=== PATIENT | female | born 1940 | race Caucasian/White ===

== ENCOUNTER 2017-03-08 21:38 | Emergency (ER) | payer MEDICARE, BC ==
[2017-03-08 21:49] VITALS: BP 160/73
--- NOTE | 2017-03-08 22:22 | EDM.PDOC ---
ED HPI GENERAL MEDICAL PROBLEM - General Chief Complaint: General Stated Complaint: right foot wound Time Seen by Provider: 03/08/17 23:13 Source of Information: Reports: Patient History Limitations: Reports: No Limitations - History of Present Illness INITIAL COMMENTS - FREE TEXT/NARRATIVE: Patient is a 76-year-old diabetic with right heel diabetic ulcer at this time patient states that the wound had healed nicely and lately she developed 2 ulcerations in the legs and the foot started weeping again there is been going on for about 3 weeks Onset: Gradual Duration: Week(s):, Getting Worse Location: Reports: Lower Extremity, Right (There is erythema and swelling of the foot and ankle) Quality: Reports: Sharp, Stabbing, Throbbing Severity: Moderate Improves with: Reports: Medication, Other (Resting with her leg elevated) Context: Reports: Sick Contact Associated Symptoms: Reports: Fever/Chills Right Feet Pain Score (Numeric/FACES): 6 - Related Data Allergies Allergy/AdvReac Type Severity Reaction Status Date / Time bacitracin [From Cortisporin] Allergy Rash Verified 03/08/17 21:50 bacitracin zinc Allergy Rash Verified 03/08/17 21:50 [From Cortisporin] hydrocortisone Allergy Rash Verified 03/08/17 21:50 [From Cortisporin] lincomycin HCl Allergy unknown Verified 03/08/17 21:50 [From Lincocin] neomycin [From Cortisporin] Allergy Rash Verified 03/08/17 21:50 neomycin sulfate Allergy Rash Verified 03/08/17 21:50 [From Cortisporin] Penicillins Allergy Hives Verified 03/08/17 21:50 polymyxin B Allergy Rash Verified 03/08/17 21:50 [From Cortisporin] polymyxin B sulfate Allergy Rash Verified 03/08/17 21:50 [From Cortisporin] sulfamethoxazole Allergy unknown Verified 03/08/17 21:50 [From Septra] tioconazole [From Monistat 1] Allergy unknown Verified 03/08/17 21:50 trimethoprim [From Septra] Allergy unknown Verified 03/08/17 21:50 Home Meds: Home Meds Gabapentin [Neurontin] 600 mg PO BEDTIME 06/23/15 [History] Warfarin Sodium [Coumadin] 7.5 mg PO ASDIRECTED 06/23/15 [History] Warfarin [Coumadin] 5 mg PO ASDIRECTED 06/23/15 [History] oxyCODONE HCl/Acetaminophen [oxyCODONE-Acetaminophen 5-325] 2 tab PO Q6HR PRN [History] SitaGLIPtin [Januvia] 100 mg PO DAILY@1800 01/30/16 [History] Amoxicillin/Clavulanate K [Augmentin 500 MG\\125 MG] 1 tab PO Q12HR 03/08/17 [ History] Amoxicillin/Clavulanate K [Augmentin 875 MG/125 MG] 1 tab PO Q12HR #40 tablet [Rx] Bismuth Tribromoph/Petrolatum [Xeroform 5"X9" Gauze Strip] 1 each TP DAILY #10 bandage 03/08/17 [Rx] Phytonadione [Vitamin K] 100 mcg PO DAILY 03/08/17 [History] metroNIDAZOLE [Flagyl] 500 mg PO TID #60 tablet 03/08/17 [Rx] Past Medical History HEENT History: Reports: Cataract, Hard of Hearing, Impaired Vision, Other (See Below) Other HEENT History: Glasses, no hearing aides Cardiovascular History: Reports: Blood Clots/VTE/DVT, Hypertension, PVD, Other ( See Below) Other Cardiovascular History: Recurrent DVTs of the legs bilaterally with 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 with patient denying previous history of PE despite previous medical records, peripheral vascular disease requiring bypass surgery at the right leg as below Respiratory History: Reports: COPD, Other (See Below) Other Respiratory History: The patient and her daughter deny previous PE as above Gastrointestinal History: Reports: Cholelithiasis, Chronic Diarrhea Other Gastrointestinal History: Chronic diarrhea after colon surgery as below Genitourinary History: Reports: None Other OB/BYN History: Menopause in her 50s Musculoskeletal History: Reports: Arthritis, Back Pain, Chronic, Neck Pain, Chronic, Osteoarthritis, Osteoporosis Neurological History: Reports: Neuropathy, Diabetic, Neuropathy, Peripheral Psychiatric History: Reports: Anxiety, Depression Endocrine/Metabolic History: Reports: Diabetes, Type II, IDDM, Obesity/BMI 30+, Other (See Below) Other Endocrine/Metabolic History: Patient did previously need insulin therapy Hematologic History: Reports: Anemia, B12 Deficiency, Blood Transfusion(s), Iron Deficiency, Other (See Below) Other Hematologic History: Blood transfusion in 2004 Immunologic History: Reports: None Oncologic (Cancer) History: Reports: Colon Other Oncologic History: Colon cancer in 2007 with surgery as below and also chemotherapy Dermatologic History: Reports: Chronic Cellulitis, Venous Stasis Dermatitis, Other (See Below) Other Dermatologic History: Chronic diabetic right foot ulcers - Infectious Disease History Infectious Disease History: Reports: MRSA - Past Surgical History Head Surgeries/Procedures: Reports: None HEENT Surgical History: Reports: Cataract Surgery, Oral Surgery, Other (See Below) Cardiovascular Surgical History: Reports: Vascular Surgery, Other (See Below) GI Surgical History: Reports: Appendectomy, Cholecystectomy, Colon, Colonoscopy , Colostomy, Hernia, Abdominal, Hernia Repair/Other, Other (See Below) Female Surgical History: Reports: Breast Biopsy, Tubal Ligation, Other (See Below) Musculoskeletal Surgical History: Reports: Hip Replacement, Other (See Below) Oncologic Surgical History: Reports: Other (See Below) - Past Imaging History Past Imaging History: Reports: Bone Scan, MRI, PET Social & Family History - Family History HEENT: Reports: Macular Degeneration, Other (See Below) Other HEENT Family History: mother with macular degeneration Cardiac: Reports: CAD, Hypertension, SC, Other (See Below) Other Cardiac Family History: Father with SC in his 70s, daughter with hypertension Respiratory: Reports: None GI: Reports: None : Reports: Diabetic Nephropathy, Dialysis, Renal Disease/Insufficiency Other Family History: Son with diabetic nephropathy which required dialysis OBGYN: Reports: None Musculoskeletal: Reports: None Neurological: Reports: CVA Other Neurological Family History: Father with fatal CVA in his 80s Psychiatric: Reports: None Endocrine/Metabolic: Reports: Diabetes, Type I, Diabetes, type II, IDDM Other Endocrine/Metabolic Family History: Son with type 1 diabetes mellitus with secondary renal failure as above, sister with AODM, brother with AODM-ID Hematologic: Reports: None Immunologic: Reports: None Dermatologic: Reports: None Oncologic: Reports: Cervix, Other (See Below) Other Oncologic Family History: Sister with cervical cancer in her 40s - Tobacco Use Smoking Status *Q: Current Every Day Smoker Years of Tobacco use: 56 Packs/Tins Daily: 1 Used Tobacco, but Quit: No Second Hand Smoke Exposure: No - Caffeine Use Caffeine Use: Reports: Coffee, Soda - Alcohol Use Days Per Week of Alcohol Use: 0 - Recreational Drug Use Recreational Drug Use: No Drug Use in Last 12 Months: No - Living Situation & Occupation Living situation: Reports: , with Family Occupation: Retired ED ROS GENERAL - Review of Systems Review Of Systems: See Below Constitutional: Reports: No Symptoms HEENT: Reports: No Symptoms Respiratory: Reports: No Symptoms Cardiovascular: Reports: No Symptoms Endocrine: Reports: No Symptoms GI/Abdominal: Reports: No Symptoms : Reports: No Symptoms Musculoskeletal: Reports: Foot Pain (Right foot pain with dependent edema poor pulse) Skin: Reports: Erythema, Change in Color Neurological: Reports: No Symptoms Psychiatric: Reports: No Symptoms Hematologic/Lymphatic: Reports: No Symptoms Immunologic: Reports: No Symptoms ED EXAM, GENERAL - Physical Exam Exam: See Below Exam Limited By: No Limitations General Appearance: Alert, WD/WN, No Apparent Distress Ears: Normal External Exam, Normal Canal, Hearing Grossly Normal, Normal TMs Ear Exam: Bilateral Ear: Auricle Normal, Canal Normal, TM normal Nose: Normal Inspection, Normal Mucosa, No Blood Throat/Mouth: Normal Inspection, Normal Lips, Normal Teeth, Normal Gums, Normal Oropharynx, Normal Voice, No Airway Compromise Head: Atraumatic, Normocephalic Neck: Normal Inspection, Supple, Non-Tender, Full Range of Motion Respiratory/Chest: No Respiratory Distress, Lungs Clear, Normal Breath Sounds, No Accessory Muscle Use, Chest Non-Tender Cardiovascular: Normal Peripheral Pulses, Regular Rate, Rhythm, No Edema, No Gallop, No JVD, No Murmur, No Rub GI/Abdominal: Normal Bowel Sounds, Soft, Non-Tender, No Organomegaly, No Distention, No Abnormal Bruit, No Mass (Female) Exam: Normal External Exam, Normal Speculum Exam, Normal Bimanual Exam Rectal (Female) Exam: Deferred Back Exam: Normal Inspection Extremities: Pedal Edema, Leg Pain, Redness, Other (wound weeping clear) Neurological: Alert, Oriented, CN II-XII Intact, Normal Cognition, Normal Gait, Normal Reflexes, No Motor/Sensory Deficits Psychiatric: Normal Affect, Normal Mood Skin Exam: Erythema, Other (1 weeping) Course - Vital Signs Last Recorded V/S: Last Vital Signs Temp 97.8 F 03/08/17 21:40 Pulse 82 03/08/17 21:40 Resp 18 03/08/17 21:40 BP 160/73 H 03/08/17 21:40 Pulse Ox 98 03/08/17 21:40 - Orders/Labs/Meds Orders: Active Orders 24 hr Category Date Time Status BASIC METABOLIC PANEL,BMP [CHEM] Stat Lab 03/08/17 22:15 Ordered CBC WITH AUTO DIFF [HEME] Stat Lab 03/08/17 22:15 Ordered CULTURE BLOOD [BC] Stat Lab 03/08/17 22:15 Ordered CULTURE BLOOD [BC] Stat Lab 03/08/17 22:15 Ordered CULTURE WOUND [RM] Stat Lab 03/08/17 22:15 Uncollected INR,PT,PROTHROMBIN TIME [COAG] Stat Lab 03/08/17 22:15 Ordered Blood Culture x2 Reflex Set [OM.PC] Stat Oth 03/08/17 22:15 Ordered Departure - Departure Time of Disposition: 23:05 Disposition: Home, Self-Care 01 Condition: Fair Clinical Impression: Diabetes mellitus type 2, HTN, Essential hypertension, Elevated INR Diabetic foot ulcer associated with type 2 diabetes mellitus Qualifiers: Diabetic foot ulcer location: unspecified part of foot Laterality: right Non- pressure ulcer stage: limited to breakdown of skin Qualified Code(s): E11.621 - Type 2 diabetes mellitus with foot ulcer; L97.511 - Non-pressure chronic ulcer of other part of right foot limited to breakdown of skin COPD (chronic obstructive pulmonary disease) Qualifiers: COPD type: unspecified COPD Qualified Code(s): J44.9 - Chronic obstructive pulmonary disease, unspecified - Discharge Information Forms: ED Department Discharge Additional Instructions: Patient is instructed to change bandages daily she is to apply Xeroform ABVD klin and Rosalino wrap daily we'll obtain cultures and will start her on Augmentin and Flagyl daily as far as her PT/INR was 4.2 will hold it today until Saturday recheck on Saturday and started and restart same doses Care Plan Goals: Patient was instructed to hold her Coumadin until Saturday we'll restart on Saturday also check her INR Saturday - My Orders Last 24 Hours: My Active Orders 03/08/17 22:15 BASIC METABOLIC PANEL,BMP [CHEM] Stat CBC WITH AUTO DIFF [HEME] Stat CULTURE BLOOD [BC] Stat CULTURE BLOOD [BC] Stat CULTURE WOUND [RM] Stat INR,PT,PROTHROMBIN TIME [COAG] Stat Blood Culture x2 Reflex Set [OM.PC] Stat - Assessment/Plan Last 24 Hours: My Active Orders 03/08/17 22:15 BASIC METABOLIC PANEL,BMP [CHEM] Stat CBC WITH AUTO DIFF [HEME] Stat CULTURE BLOOD [BC] Stat CULTURE BLOOD [BC] Stat CULTURE WOUND [RM] Stat INR,PT,PROTHROMBIN TIME [COAG] Stat Blood Culture x2 Reflex Set [OM.PC] Stat
[2017-03-08 22:45] LABS: CHLORIDE,CL 102 mmol/L (98-107); SODIUM,NA 137 mmol/L (136-145)
== END 2017-03-08 23:25 | disposition home or self-care (01) ==
LOC: LL.ED 21:38
DX: E11.621 Type 2 diabetes mellitus with foot ulcer (principal); L97.511 Non-pressure chronic ulcer of other part of right foot limited to breakdown of skin; J44.9 Chronic obstructive pulmonary disease, unspecified; R79.1 Abnormal coagulation profile; I10 Essential (primary) hypertension; E11.42 Type 2 diabetes mellitus with diabetic polyneuropathy; M19.90 Unspecified osteoarthritis, unspecified site; F41.9 Anxiety disorder, unspecified; F32.9 Major depressive disorder, single episode, unspecified; E66.9 Obesity, unspecified; F17.210 Nicotine dependence, cigarettes, uncomplicated; Z86.2 Personal history of diseases of the blood and blood-forming organs and certain disorders involving the immune mechanism; Z86.718 Personal history of other venous thrombosis and embolism; Z98.49 Cataract extraction status, unspecified eye; Z90.49 Acquired absence of other specified parts of digestive tract; Z98.890 Other specified postprocedural states; Z98.51 Tubal ligation status; Z96.649 Presence of unspecified artificial hip joint; Z93.3 Colostomy status; Z85.038 Personal history of other malignant neoplasm of large intestine; Z79.899 Other long term (current) drug therapy; Z88.1 Allergy status to other antibiotic agents; Z88.0 Allergy status to penicillin; Z88.5 Allergy status to narcotic agent; Z88.2 Allergy status to sulfonamides; Z88.8 Allergy status to other drugs, medicaments and biological substances; Z79.01 Long term (current) use of anticoagulants
CPT/HCPCS: 36415; 80048; 85025; 85610; 87040; 87070; 87077; 87186; 99283

== ENCOUNTER 2017-08-03 18:35 | Emergency (ER) | payer MEDICARE, BC ==
[2017-08-03] MEDS ORDERED: Sodium Chloride 0.9% 10 ML Syringe FLUSH PRN (20:10)
--- NOTE | 2017-08-03 20:10 | EDM.PDOC ---
ED HPI GENERAL MEDICAL PROBLEM - General Chief Complaint: General Stated Complaint: Tachycardia, Dyspnea Time Seen by Provider: 08/03/17 18:40 Source of Information: Reports: Patient, Family, RN History Limitations: Reports: No Limitations - History of Present Illness INITIAL COMMENTS - FREE TEXT/NARRATIVE: Patient is a 77-year-old female well known to myself seen in the emergency room status post chills after flushing her Port patient is currently receiving vancomycin IV at home secondary to infected ulcers on the medial aspect of the right foot, patient is a smoker with significant vascular deficiency of interest is the fact that home health has had axis to the port for the last month and has been receiving vancomycin 3 times a day infusions at home at this time her white count is elevated 13.8 and her creatinine today is 2.30 ,6 days ago her creatinine was 0.8 she has been tachycardic and was chills at home unknown if increased temperature , temperature today 97.6 Onset: Gradual Duration: Day(s): Location: Reports: Generalized Severity: Severe Improves with: Reports: None Worsens with: Reports: None Associated Symptoms: Reports: Cough, Fever/Chills, Shortness of Breath (With transferring and exertion) - Related Data Allergies Allergy/AdvReac Type Severity Reaction Status Date / Time bacitracin [From Cortisporin] Allergy Rash Verified 08/03/17 18:56 bacitracin zinc Allergy Rash Verified 08/03/17 18:56 [From Cortisporin] hydrocortisone Allergy Rash Verified 08/03/17 18:56 [From Cortisporin] lincomycin HCl Allergy unknown Verified 08/03/17 18:56 [From Lincocin] neomycin [From Cortisporin] Allergy Rash Verified 08/03/17 18:56 neomycin sulfate Allergy Rash Verified 08/03/17 18:56 [From Cortisporin] Penicillins Allergy Hives Verified 08/03/17 18:56 polymyxin B Allergy Rash Verified 08/03/17 18:56 [From Cortisporin] polymyxin B sulfate Allergy Rash Verified 08/03/17 18:56 [From Cortisporin] sulfamethoxazole Allergy unknown Verified 08/03/17 18:56 [From Septra] tioconazole [From Monistat 1] Allergy unknown Verified 08/03/17 18:56 trimethoprim [From Septra] Allergy unknown Verified 08/03/17 18:56 Home Meds: Home Meds Gabapentin [Neurontin] 600 mg PO BEDTIME 06/23/15 [History] Warfarin Sodium [Coumadin] 7.5 mg PO ASDIRECTED 06/23/15 [History] Warfarin [Coumadin] 5 mg PO ASDIRECTED 06/23/15 [History] oxyCODONE HCl/Acetaminophen [oxyCODONE-Acetaminophen 5-325] 2 tab PO Q6HR PRN [History] SitaGLIPtin [Januvia] 100 mg PO DAILY@1800 01/30/16 [History] Amoxicillin/Clavulanate K [Augmentin 500 MG\\125 MG] 1 tab PO Q12HR 03/08/17 [ History] Amoxicillin/Clavulanate K [Augmentin 875 MG/125 MG] 1 tab PO Q12HR #40 tablet [Rx] Bismuth Tribromoph/Petrolatum [Xeroform 5"X9" Gauze Strip] 1 each TP DAILY #10 bandage 03/08/17 [Rx] Phytonadione [Vitamin K] 100 mcg PO DAILY 03/08/17 [History] metroNIDAZOLE [Flagyl] 500 mg PO TID #60 tablet 03/08/17 [Rx] Past Medical History HEENT History: Reports: Cataract, Hard of Hearing, Impaired Vision, Other (See Below) Other HEENT History: Glasses, no hearing aides Cardiovascular History: Reports: Blood Clots/VTE/DVT, Hypertension, PVD, Other ( See Below) Other Cardiovascular History: Recurrent DVTs of the legs bilaterally with 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 with patient denying previous history of PE despite previous medical records, peripheral vascular disease requiring bypass surgery at the right leg as below Respiratory History: Reports: COPD, Other (See Below) Other Respiratory History: The patient and her daughter deny previous PE as above Gastrointestinal History: Reports: Cholelithiasis, Chronic Diarrhea Other Gastrointestinal History: Chronic diarrhea after colon surgery as below Genitourinary History: Reports: None Other OB/BYN History: Menopause in her 50s Musculoskeletal History: Reports: Arthritis, Back Pain, Chronic, Neck Pain, Chronic, Osteoarthritis, Osteoporosis Neurological History: Reports: Neuropathy, Diabetic, Neuropathy, Peripheral Psychiatric History: Reports: Anxiety, Depression Endocrine/Metabolic History: Reports: Diabetes, Type II, IDDM, Obesity/BMI 30+, Other (See Below) Other Endocrine/Metabolic History: Patient did previously need insulin therapy Hematologic History: Reports: Anemia, B12 Deficiency, Blood Transfusion(s), Iron Deficiency, Other (See Below) Other Hematologic History: Blood transfusion in 2004 Immunologic History: Reports: None Oncologic (Cancer) History: Reports: Colon Other Oncologic History: Colon cancer in 2006 with surgery as below and also chemotherapy Dermatologic History: Reports: Chronic Cellulitis, Venous Stasis Dermatitis, Other (See Below) Other Dermatologic History: Chronic diabetic right foot ulcers - Infectious Disease History Infectious Disease History: Reports: MRSA - Past Surgical History Head Surgeries/Procedures: Reports: None HEENT Surgical History: Reports: Cataract Surgery, Oral Surgery, Other (See Below) Cardiovascular Surgical History: Reports: Vascular Surgery, Other (See Below) GI Surgical History: Reports: Appendectomy, Cholecystectomy, Colon, Colonoscopy , Colostomy, Hernia, Abdominal, Hernia Repair/Other, Other (See Below) Female Surgical History: Reports: Breast Biopsy, Tubal Ligation, Other (See Below) Musculoskeletal Surgical History: Reports: Hip Replacement, Other (See Below) Oncologic Surgical History: Reports: Other (See Below) - Past Imaging History Past Imaging History: Reports: Bone Scan, MRI, PET Social & Family History - Family History HEENT: Reports: Macular Degeneration, Other (See Below) Other HEENT Family History: mother with macular degeneration Cardiac: Reports: CAD, Hypertension, VA, Other (See Below) Other Cardiac Family History: Father with VA in his 70s, daughter with hypertension Respiratory: Reports: None GI: Reports: None : Reports: Diabetic Nephropathy, Dialysis, Renal Disease/Insufficiency Other Family History: Son with diabetic nephropathy which required dialysis OBGYN: Reports: None Musculoskeletal: Reports: None Neurological: Reports: CVA Other Neurological Family History: Father with fatal CVA in his 80s Psychiatric: Reports: None Endocrine/Metabolic: Reports: Diabetes, Type I, Diabetes, type II, IDDM Other Endocrine/Metabolic Family History: Son with type 1 diabetes mellitus with secondary renal failure as above, sister with AODM, brother with AODM-ID Hematologic: Reports: None Immunologic: Reports: None Dermatologic: Reports: None Oncologic: Reports: Cervix, Other (See Below) Other Oncologic Family History: Sister with cervical cancer in her 40s - Tobacco Use Smoking Status *Q: Current Every Day Smoker Years of Tobacco use: 56 Packs/Tins Daily: 1 Used Tobacco, but Quit: No Second Hand Smoke Exposure: No - Caffeine Use Caffeine Use: Reports: Coffee, Soda - Alcohol Use Days Per Week of Alcohol Use: 0 - Recreational Drug Use Recreational Drug Use: No Drug Use in Last 12 Months: No - Living Situation & Occupation Living situation: Reports: , with Family Occupation: Retired ED ROS GENERAL - Review of Systems Review Of Systems: See Below Constitutional: Reports: Chills, Weakness HEENT: Reports: No Symptoms Respiratory: Reports: Shortness of Breath (With exertion) Cardiovascular: Reports: Palpitations, Other Endocrine: Reports: Other (Diabetes) GI/Abdominal: Reports: Diarrhea Musculoskeletal: Reports: Leg Pain, Foot Pain Skin: Reports: Wound (Right ankle medial aspect) Neurological: Reports: No Symptoms Psychiatric: Reports: No Symptoms Hematologic/Lymphatic: Reports: No Symptoms ED EXAM, GENERAL - Physical Exam Exam: See Below Exam Limited By: No Limitations General Appearance: Alert, WD/WN, No Apparent Distress Ears: Normal External Exam, Normal Canal, Hearing Grossly Normal, Normal TMs Nose: Normal Inspection, Normal Mucosa, No Blood Throat/Mouth: Normal Inspection, Normal Lips, Normal Teeth, Normal Gums, Normal Oropharynx, Normal Voice, No Airway Compromise Head: Atraumatic, Normocephalic Neck: Normal Inspection, Supple, Non-Tender, Full Range of Motion Respiratory/Chest: Decreased Breath Sounds, Rales (Left base) Cardiovascular: Tachycardia GI/Abdominal: Normal Bowel Sounds, Soft, Non-Tender, No Organomegaly, No Distention, No Abnormal Bruit, No Mass (Female) Exam: Deferred Rectal (Female) Exam: Deferred Back Exam: Normal Inspection, Full Range of Motion, NT Extremities: Leg Pain (Right leg medial aspect ulcer healing) Neurological: Alert, Oriented, CN II-XII Intact, Normal Cognition, Normal Gait, Normal Reflexes, No Motor/Sensory Deficits Psychiatric: Normal Affect, Normal Mood Skin Exam: Warm, Dry, Intact, Normal Color, No Rash, Wound/Incision (Right leg medial aspect ulcer) Course - Vital Signs Last Recorded V/S: Last Vital Signs Temp 97.6 F 08/03/17 18:35 Pulse 101 H 08/03/17 20:46 Resp 23 H 08/03/17 20:46 BP 96/57 L 08/03/17 20:46 Pulse Ox 98 08/03/17 20:46 - Orders/Labs/Meds Orders: Active Orders 24 hr Category Date Time Status EKG Documentation Completion [RC] ASDIRECTED Care 08/03/17 19:18 Active Chest 2V [CR] Stat Exams 08/03/17 19:04 Taken CULTURE BLOOD [BC] Stat Lab 08/03/17 19:06 Ordered CULTURE BLOOD [BC] Stat Lab 08/03/17 19:06 Ordered CULTURE CATHETER TIP [RM] Stat Lab 08/03/17 20:26 Uncollected Sodium Chloride 0.9% @ 150 MLS/HR (1000ml) Med 08/03/17 20:15 Ordered Sodium Chloride 0.9% [Normal Saline] 1,000 ml IV ASDIRECTED Sodium Chloride 0.9% [Saline Flush] Med 08/03/17 20:10 Ordered 10 ml FLUSH ASDIRECTED PRN Blood Culture x2 Reflex Set [OM.PC] Stat Oth 08/03/17 19:05 Ordered Saline Lock Insert [OM.PC] Stat Oth 08/03/17 20:10 Ordered Medication Orders Sodium Chloride (Normal Saline) 1,000 mls @ 150 mls/hr IV ASDIRECTED JOS Last Admin: 08/03/17 20:21 Dose: 150 mls/hr Sodium Chloride (Saline Flush) 10 ml FLUSH ASDIRECTED PRN PRN Reason: Keep Vein Open Labs: Laboratory Tests 08/03/17 08/03/17 08/03/17 Range/Units 19:00 19:00 19:00 WBC 13.8 H (4.0-10.2) K/uL RBC 4.68 (3.77-5.09) M/uL Hgb 13.9 (11.7-15.5) g/dL Hct 41.2 (34.0-46.0) % MCV 88.0 (84.0-98.0) fL MCH 29.7 (28.2-33.3) pg MCHC 33.7 (31.7-36.0) g/dL RDW 15.0 H (11.2-14.1) % Plt Count 159 (150-350) K/uL Neut % (Auto) 90.7 H (45.0-80.0) % Lymph % (Auto) 3.5 L (10.0-50.0) % [place] % (Auto) 5.3 (2.0-14.0) % Eos % (Auto) 0.2 (0.0-5.0) % Baso % (Auto) 0.3 (0.0-2.0) % Neut # (Auto) 12.54 H (1.40-7.00) K/uL Lymph # (Auto) 0.49 L (0.50-3.50) K/uL [place] # (Auto) 0.74 (0.00-1.00) K/uL Eos # (Auto) 0.03 (0.00-0.50) K/uL Baso # (Auto) 0.04 (0.00-0.20) K/uL PT 24.1 H (9.8-11.7) SEC INR 2.2 Sodium 135 L (136-145) mmol/L Potassium 3.4 L (3.5-5.1) mmol/L Chloride 102 (98-107) mmol/L Carbon Dioxide 19.6 L (21.0-32.0) mmol/L BUN 28 H (7-18) mg/dL Creatinine 2.30 H D (0.51-1.17) mg/dL Est Cr Clr Drug Dosing 14.48 mL/min Estimated GFR (MDRD) 21 mL/min Glucose 178 H (74-106) mg/dL Lactic Acid (0.4-2.0) mmol/L Calcium 8.5 (8.5-10.1) mg/dL Troponin I 0.613 H* (0.000-0.056) ng/mL NT-Pro-B Natriuret Pep 7632 H (0-125) pg/mL 08/03/17 Range/Units 19:45 WBC (4.0-10.2) K/uL RBC (3.77-5.09) M/uL Hgb (11.7-15.5) g/dL Hct (34.0-46.0) % MCV (84.0-98.0) fL MCH (28.2-33.3) pg MCHC (31.7-36.0) g/dL RDW (11.2-14.1) % Plt Count (150-350) K/uL Neut % (Auto) (45.0-80.0) % Lymph % (Auto) (10.0-50.0) % [place] % (Auto) (2.0-14.0) % Eos % (Auto) (0.0-5.0) % Baso % (Auto) (0.0-2.0) % Neut # (Auto) (1.40-7.00) K/uL Lymph # (Auto) (0.50-3.50) K/uL [place] # (Auto) (0.00-1.00) K/uL Eos # (Auto) (0.00-0.50) K/uL Baso # (Auto) (0.00-0.20) K/uL PT (9.8-11.7) SEC INR Sodium (136-145) mmol/L Potassium (3.5-5.1) mmol/L Chloride (98-107) mmol/L Carbon Dioxide (21.0-32.0) mmol/L BUN (7-18) mg/dL Creatinine (0.51-1.17) mg/dL Est Cr Clr Drug Dosing mL/min Estimated GFR (MDRD) mL/min Glucose (74-106) mg/dL Lactic Acid 3.1 H (0.4-2.0) mmol/L Calcium (8.5-10.1) mg/dL Troponin I (0.000-0.056) ng/mL NT-Pro-B Natriuret Pep (0-125) pg/mL Meds: Medications Generic Name Dose Route Start Last Admin Trade Name Freq PRN Reason Stop Dose Admin Sodium Chloride 1,000 mls @ 150 mls/hr 08/03/17 20:15 08/03/17 20:21 Normal Saline IV 150 mls/hr ASDIRECTED JOS Administration Sodium Chloride 10 ml 08/03/17 20:10 Saline Flush FLUSH ASDIRECTED PRN Keep Vein Open Departure - Departure Time of Disposition: 20:59 Disposition: DC/Tfer to Acute Hospital 02 Clinical Impression: Elevated troponin Sepsis Qualifiers: Sepsis type: sepsis due to unspecified organism Qualified Code(s): A41.9 - Sepsis, unspecified organism Renal failure (ARF), acute on chronic Qualifiers: Acute renal failure type: unspecified - Discharge Information Referrals: Josse Jian MD [Primary Care Provider] - Forms: ED Department Discharge Care Plan Goals: Patient will be started on IV cefoxatine and Vanco and prior to transfer transferred to [place] IV fluids started - My Orders Last 24 Hours: My Active Orders 08/03/17 19:04 Chest 2V [CR] Stat 08/03/17 19:05 Blood Culture x2 Reflex Set [OM.PC] Stat 08/03/17 19:06 CULTURE BLOOD [BC] Stat CULTURE BLOOD [BC] Stat 08/03/17 19:18 EKG Documentation Completion [RC] ASDIRECTED 08/03/17 20:10 Sodium Chloride 0.9% [Saline Flush] 10 ml FLUSH ASDIRECTED PRN Saline Lock Insert [OM.PC] Stat 08/03/17 20:15 Sodium Chloride 0.9% @ 150 MLS/HR (1000ml) Sodium Chloride 0.9% [Normal Saline] 1,000 ml IV ASDIRECTED 08/03/17 20:26 CULTURE CATHETER TIP [RM] Stat - Assessment/Plan Last 24 Hours: My Active Orders 08/03/17 19:04 Chest 2V [CR] Stat 08/03/17 19:05 Blood Culture x2 Reflex Set [OM.PC] Stat 08/03/17 19:06 CULTURE BLOOD [BC] Stat CULTURE BLOOD [BC] Stat 08/03/17 19:18 EKG Documentation Completion [RC] ASDIRECTED 08/03/17 20:10 Sodium Chloride 0.9% [Saline Flush] 10 ml FLUSH ASDIRECTED PRN Saline Lock Insert [OM.PC] Stat 08/03/17 20:15 Sodium Chloride 0.9% @ 150 MLS/HR (1000ml) Sodium Chloride 0.9% [Normal Saline] 1,000 ml IV ASDIRECTED 08/03/17 20:26 CULTURE CATHETER TIP [RM] Stat
[2017-08-03] MEDS ORDERED: Sodium Chloride 0.9% 1,000 ML IV SCH (20:15)
[2017-08-03] MEDS ORDERED: Vancomycin 1.5 GM in Sodium Chloride 0.9% 500 ML IV ONE (21:00)
[2017-08-03] MEDS ORDERED: Cefepime 2 GM in Sodium Chloride 0.9% 100 ML IV ONE (21:00)
[2017-08-03 22:15] VITALS: BP 101/57
== END 2017-08-03 22:00 ==
LOC: LL.ED 18:35
DX: A41.9 Sepsis, unspecified organism (principal); I12.9 Hypertensive chronic kidney disease with stage 1 through stage 4 chronic kidney disease, or unspecified chronic kidney disease; E11.22 Type 2 diabetes mellitus with diabetic chronic kidney disease; N18.9 Chronic kidney disease, unspecified; E11.40 Type 2 diabetes mellitus with diabetic neuropathy, unspecified; J44.9 Chronic obstructive pulmonary disease, unspecified; N17.9 Acute kidney failure, unspecified; F17.210 Nicotine dependence, cigarettes, uncomplicated; R79.89 Other specified abnormal findings of blood chemistry; Z88.8 Allergy status to other drugs, medicaments and biological substances; Z79.01 Long term (current) use of anticoagulants
CPT/HCPCS: 36415; 71020; 80048; 83605; 83880; 84484; 85025; 85610; 87040; 87070; 87077; 87186; 93005; 96361; 96365; 96367; 99285; J0692; J3370; J7030; J7040; J7050

== ENCOUNTER 2017-12-24 21:01 | Emergency (ER) | payer MEDICARE, BC ==
[2017-12-24] MEDS ORDERED: Albuterol/Ipratropium 3.0-0.5 MG/3 ML Neb Soln NEB ONE (21:30)
[2017-12-24] MEDS ORDERED: Budesonide 0.5 MG/2 ML Neb Susp NEB ONE (21:30)
[2017-12-24] MEDS ORDERED: Sodium Chloride 0.9% 10 ML Syringe FLUSH PRN (21:30)
--- NOTE | 2017-12-24 21:30 | EDM.PDOC ---
ED HPI GENERAL MEDICAL PROBLEM - General Chief Complaint: Respiratory Problem Stated Complaint: cough, respiratory s/s Time Seen by Provider: 12/24/17 21:20 Source of Information: Reports: Patient, Family (Daughter), Old Records ([facility] chart/EMR) History Limitations: Reports: No Limitations - History of Present Illness INITIAL COMMENTS - FREE TEXT/NARRATIVE: The patient was brought to the emergency room via private automobile by her daughter for evaluation of progressive greenish productive cough over the last 2 weeks with the patient taking a ten-day course of Augmentin, which she completed on 12/21. Her son is having similar type symptoms, however his symptoms started after the patient became sick. The patient was also taking OTC Mucinex DM and Robitussin-DM with no improvement in her symptoms. She is not normally on nebulizer therapy, however did take one treatment from her daughter 2 days ago. No history of significant dyspnea, wheezing, etc. Note that the Augmentin was leftover medications from recent cellulitis of her right leg, which has since resolved. Possible history of fever and chills, however she never did measure her temperature with no recent use of antipyretic medication. The patient denies any chest pain/pressure, heart flutter, dizziness, orthostasis, orthopnea, diaphoresis, paresthesias, recent decreased exercise tolerance, or any other anginal-type symptoms. No recent history of abdominal pain, heartburn, nausea, diarrhea, melena, gross hematochezia, or any food intolerance, including fatty foods, etc.. She denies any current UTI symptoms. She did have some mild sore throat initially with onset of symptoms with only mild 1/10 discomfort at this time. Onset: Gradual Duration: Week(s):, Getting Worse, Intermittent Location: Reports: Other (Sore throat) Quality: Reports: Ache (Sore throat) Severity: Mild Improves with: Reports: None Worsens with: Reports: None Context: Reports: Other (As above) Associated Symptoms: Reports: Cough, cough w sputum, Fever/Chills. 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) (As above) Throat Pain Score (Numeric/FACES): 1 - Related Data Allergies Allergy/AdvReac Type Severity Reaction Status Date / Time bacitracin [From Cortisporin] Allergy Rash Verified 12/24/17 21:05 bacitracin zinc Allergy Rash Verified 12/24/17 21:05 [From Cortisporin] hydrocortisone Allergy Rash Verified 12/24/17 21:05 [From Cortisporin] lincomycin HCl Allergy unknown Verified 12/24/17 21:05 [From Lincocin] neomycin [From Cortisporin] Allergy Rash Verified 12/24/17 21:05 neomycin sulfate Allergy Rash Verified 12/24/17 21:05 [From Cortisporin] Penicillins Allergy Hives Verified 12/24/17 21:05 polymyxin B Allergy Rash Verified 12/24/17 21:05 [From Cortisporin] polymyxin B sulfate Allergy Rash Verified 12/24/17 21:05 [From Cortisporin] sulfamethoxazole Allergy unknown Verified 12/24/17 21:05 [From Septra] tioconazole [From Monistat 1] Allergy unknown Verified 12/24/17 21:05 trimethoprim [From Septra] Allergy unknown Verified 12/24/17 21:05 Home Meds: Home Meds Gabapentin [Neurontin] 600 mg PO BEDTIME 06/23/15 [History] SitaGLIPtin [Januvia] 100 mg PO DAILY@1800 01/30/16 [History] Phytonadione [Vitamin K] 100 mcg PO DAILY 03/08/17 [History] Albuterol/Ipratropium [DuoNeb 3.0-0.5 MG/3 ML] 3 ml NEB QID #60 neb 12/24/17 [Rx ] Ciprofloxacin HCl [Cipro] 500 mg PO BID #20 tablet 12/24/17 [Rx] Magnesium Oxide 400 mg PO DAILY #30 tab 12/24/17 [Rx] Rosuvastatin [Crestor] 10 mg PO BEDTIME 12/24/17 [History] Past Medical History HEENT History: Reports: Cataract, Hard of Hearing, Impaired Vision, Other (See Below). Denies: Allergic Rhinitis, Glaucoma, Macular Degeneration, Retinal Detachment Other HEENT History: Reading Glasses, no hearing aides Cardiovascular History: Reports: Blood Clots/VTE/DVT, High Cholesterol, Hypertension, PVD, Other (See Below). 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 Denies: Asthma, Intubation, Difficult, PE, Pneumothorax, Sleep Apnea Other Respiratory History: The patient and her daughter deny previous PE as above Gastrointestinal History: Reports: Cholelithiasis, Chronic Diarrhea, Diverticulosis, Irritable Bowel Syndrome. Denies: Celiac Disease, Chronic Constipation, Fecal Incontinence, Gastritis, GERD, GI Bleed, Hepatitis, Hiatal Hernia, Inflammatory Bowel Disease, Jaundice, Pancreatitis Other Gastrointestinal History: Chronic diarrhea after colon surgery as below Genitourinary History: Reports: Acute Renal Failure, Other (See Below). 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 Denies: Dysfunctional Uterine Bleeding, Endometriosis, Fibroids : 2 Para: 2 Other OB/BYN History: Menopause in her 50s. Full term without complications during pregnancies or deliveries Musculoskeletal History: Reports: Arthritis, Back Pain, Chronic, Neck Pain, Chronic, Osteoarthritis, Osteoporosis, Other (See Below). Denies: Amputation, Fracture, RA, SLE Other Musculoskeletal History: Kyphosis Neurological History: Reports: Neuropathy, Diabetic, Neuropathy, Peripheral. Denies: Alzheimers Disease, Cerebral Aneurysms, Concussion, CVA, Headaches, Chronic, Head Trauma, Migraines, MS, Parkinson's, Seizure, TIA Psychiatric History: Reports: Anxiety, Depression. Denies: Abuse, Victim of, ADD, ADHD, Addiction, Alzheimers Disease, Dementia, Psych Hospitalization(s), PTSD, Suicide Attempt, Suicidal Ideation Endocrine/Metabolic History: Reports: Diabetes, Type II, IDDM, Obesity/BMI 30+, Osteopenia, Osteoporosis, Other (See Below). Denies: Diabetes, Type I, Diabetes Mellitus, Type 3c, Hypothyroidism Other Endocrine/Metabolic History: Patient did previously need insulin therapy, including during hospitalizations, however not on a regular basis. Hematologic History: Reports: Anemia, B12 Deficiency, Blood Transfusion(s), Iron Deficiency, Other (See Below) Other Hematologic History: Blood transfusion in 2004; factor V Leiden deficiency Immunologic History: Reports: None. Denies: AIDS, HIV, SLE Oncologic (Cancer) History: Reports: Colon, Metastatic. Denies: Basal Cell Carcinoma, Breast, Cervix, Hodgkin's Lymphoma, Leukemia, Malignant Melanoma, Non -Hodgkin's Lymphoma, Ovarian, Squamous Cell Carcinoma, Uterine Other Oncologic History: Colon cancer in 2006 with possible small hepatic metastasis with surgery as below and also chemotherapy Dermatologic History: Reports: Chronic Cellulitis, Venous Stasis Dermatitis, Other (See Below) Other Dermatologic History: Chronic diabetic right foot ulcers - Infectious Disease History Infectious Disease History: Reports: Chicken Pox, Measles, MRSA (MRSA and previous abdominal surgical site for her in the colectomy. Also present in recurrent right foot ulcers.). Denies: C-Difficile, Meningitis, Mononucleosis, Mumps, Pertussis (Whooping Cough), Rubella, Scarlet Fever, Shingles, TB, VRE - Past Surgical History Head Surgeries/Procedures: Reports: None HEENT Surgical History: Reports: Cataract Surgery, Oral Surgery, Other (See Below). Denies: Adenoidectomy, Eye Surgery, Laser Surgery, LASIK, Myringotomy w Tube(s), Naso-Sinus Surgery, Tonsillectomy Other HEENT Surgeries/Procedures: Right-sided cataract surgery in November 2005 with left-sided cataract surgery in 2013. Multiple teeth extractions. Cardiovascular Surgical History: Reports: Vascular Surgery, Other (See Below). Denies: Aneurysm, Pacer, Varicose Other Cardiovascular Surgeries/Procedures: Right-sided femoropopliteal bypass 2. Port-A-Cath placement in 2006 with subsequent removal in July 2017 secondary to Klebsiella pneumoniae sepsis and infected port. Patient denies previous vein stripping despite previous medical records. Respiratory Surgical History: Reports: None. Denies: Lung Biopsies, Thoracentesis GI Surgical History: Reports: Appendectomy, Cholecystectomy, Colon, Colonoscopy , Colostomy, Hernia, Abdominal, Hernia Repair/Other, Other (See Below). Denies : EGD, Hernia, Inguinal Other GI Surgeries/Procedures: Open Cholecystectomy with concomitant appendectomy in 1960. Right-sided hemicolectomy in 2006 secondary to perforated colon cancer with colostomy placement and subsequent colostomy reversal in 2007. Ventral abdominal hernia repair in 1977. Female Surgical History: Reports: Breast Biopsy, Tubal Ligation, Other (See Below). Denies: Section, D&C, Hysterectomy, Salpingo-Oophorectomy Other Female Surgeries/Procedures: Previous benign breast biopsies. Bilateral tubal ligation in 1977 with concomitant ventral abdominal hernia repair as above. Endocrine Surgical History: Reports: None. Denies: Thyroid Biopsy Neurological Surgical History: Reports: Discectomy, Laminectomy, Lumbar Spine, Other (See Below). Denies: C-Spine, Sacral Spine, Spinal Fusion, Thoracic Spine , Vertebroplasty Other Neurological Surgeries/Procedures: Lumbar laminectomy and discectomy in 1993 Musculoskeletal Surgical History: Reports: Hip Replacement, Joint Replacement, Other (See Below). Denies: Arthroscopic Procedure, Carpal Tunnel, Ganglion Cyst , ORIF, Shoulder Surgery Other Musculoskeletal Surgeries/Procedures:: Right hip TEP Oncologic Surgical History: Reports: Other (See Below) Other Oncologic Surgeries/Procedures: Right Hemicolectomy secondary to colon cancer as above Dermatological Surgical History: Reports: None - Past Imaging History Past Imaging History: Reports: Bone Scan (Right foot on 01/09/16), CAT Scan (CT scan of the chest on 10/22/16), MRI (Right ankle on 10/13/13), PET (Feet bilaterally on 09/09/14), Venous Doppler (Stop the studies of the right leg on ) Social & Family History - Family History HEENT: Reports: Macular Degeneration, Other (See Below). Denies: Allergic Rhinitis, Glaucoma, Retinal Detachment Other HEENT Family History: mother with macular degeneration Cardiac: Reports: CAD, Hypertension, MO, Other (See Below). Denies: Afib, Aneurysm, Arrhythmia, Blood Clots/VTE/DVT, Heart Failure, High Cholesterol, PVD/ COD, Syncope Other Cardiac Family History: Father with MO in his 70s, daughter with hypertension Respiratory: Reports: None. Denies: COPD, PE, Pneumothorax, Sleep Apnea GI: Reports: None. Denies: Celiac Disease, Cholelithiasis, Colon Polyps, Diverticulitis, Inflammatory Bowel Disease, Irritable Bowel Syndrome : Reports: Diabetic Nephropathy, Dialysis, Renal Disease/Insufficiency. Denies: Renal Calculus Other Family History: Son with diabetic nephropathy which required dialysis OBGYN: Reports: None. Denies: Endometriosis, Recurrent Spontaneous Musculoskeletal: Reports: None. Denies: Gout, RA, SLE Neurological: Reports: CVA. Denies: Alzheimers Disease, Cerebral Aneurysms, Dementia, Migraines, MS, Parkinson's, Seizure, TIA Other Neurological Family History: Father with fatal CVA in his 80s Psychiatric: Reports: None. Denies: Abuse, Victim of, ADD, ADHD, Anxiety, Depression, Psych Hospitalization(s), PTSD, Suicide Attempt Endocrine/Metabolic: Reports: Diabetes, Type I, Diabetes, type II, IDDM. Denies : Diabetes Mellitus, Type 3c, Hypothyroidism Other Endocrine/Metabolic Family History: Son with type 1 diabetes mellitus with secondary renal failure as above, sister with AODM, brother with AODM-ID Hematologic: Reports: None. Denies: Anemia, Transfusion Reaction Immunologic: Reports: None. Denies: AIDS, HIV, SLE Dermatologic: Reports: None. Denies: Eczema, Psoriasis Oncologic: Reports: Cervix, Other (See Below). Denies: Breast, Colon, Hodgkin' s Lymphoma, Leukemia, Lymphoma, Non-Hodgkin's Lymphoma, Ovarian, Thyroid, Uterine Other Oncologic Family History: Sister with cervical cancer in her 40s - Tobacco Use Smoking Status *Q: Current Every Day Smoker Tobacco Use Within Last Twelve Months: No Years of Tobacco use: 58 Packs/Tins Daily: 1 Packs/Tins Daily Comment: Maximum use of 2 packs per day Used Tobacco, but Quit: No Smoking Cessation Information Provided To Patient: Yes Second Hand Smoke Exposure: No Second Hand Smoke Education Provided: No - Caffeine Use Caffeine Use: Reports: Coffee (3 cups per day), Soda (1 soda every 3 days). Denies: Energy Drinks, Tea - Alcohol Use Alcohol Use History: No Days Per Week of Alcohol Use: 0 (No previous DWIs, problems with alcohol abuse, etc.) Number of Drinks Per Day: 0 Total Drinks Per Week: 0 Alcohol Use in Last Twelve Months: No - Recreational Drug Use Recreational Drug Use: No Drug Use in Last 12 Months: No Recreational Drug Type: Denies: Amphetamines (Speed), Cocaine, Heroin, Inhalants (Glues, Solvents, Aerosols), LSD (Acid), Marijuana/Hashish, Methamphetamine, Morphine, Oxycodone - Living Situation & Occupation Living situation: Reports: (1993), with Family (Daughter and son) Occupation: Retired ([employer] ) ED ROS GENERAL - Review of Systems Review Of Systems: ROS reveals no pertinent complaints other than HPI. ED EXAM, GENERAL - Physical Exam Exam: See Below Exam Limited By: No Limitations General Appearance: Alert, WD/WN, No Apparent Distress Eye Exam: Bilateral Eye: EOMI, Normal Inspection (Nystagmus), PERRL Ears: Normal External Exam, Normal Canal, Normal TMs, Hearing Loss (Mild bilateral presbycusis) Nose: Normal Mucosa, No Blood, Clear Rhinorrhea (Mild) Throat/Mouth: Normal Lips, Normal Gums, Normal Oropharynx, Normal Voice, No Airway Compromise. No: Normal Teeth (Multiple missing teeth with multiple caries including broken teeth into the gumline with no acute abscess or drainage ), Dysphagia, Inflammation, Perioral Cyanosis Head: Atraumatic, Normocephalic. No: Facial Swelling, Facial Tenderness, Sinus Tenderness Neck: Supple, Non-Tender, Full Range of Motion, Carotid Bruit (Mild bilateral carotid bruits). No: Lymphadenopathy (L), Lymphadenopathy (R), Thyromegaly Respiratory/Chest: No Respiratory Distress, Chest Non-Tender, Rales (Mild bilateral basilar rales). No: Rhonchi, Wheezing, Pleural Rub, Retractions Cardiovascular: Normal Peripheral Pulses, Regular Rate, Rhythm, No Edema, No Gallop, No JVD, No Murmur, No Rub. No: Gallop/S3, Gallop/S4, Friction Rub Peripheral Pulses: 2+: Radial (L), Radial (R) GI/Abdominal: Normal Bowel Sounds, Soft, Non-Tender, No Organomegaly, No Distention, No Abnormal Bruit, No Mass, Other (obese). No: Guarding (Female) Exam: Deferred Rectal (Female) Exam: Deferred Back Exam: Full Range of Motion, Other (Severe kyphosis). No: CVA Tenderness (L ), CVA Tenderness (R), Muscle Spasm Extremities: Normal Range of Motion, Non-Tender, No Pedal Edema, Normal Capillary Refill, Other (Severe bilateral venous stasis dermatitis with no acute ulceration, postoperative boot on the right foot). No: Nahun's Sign Neurological: Alert, Oriented, CN II-XII Intact, Normal Cognition, Normal Gait, No Motor/Sensory Deficits Psychiatric: Normal Affect, Normal Mood Skin Exam: Warm, Dry, Intact, No Rash. No: Wound/Incision Lymphatic: No Adenopathy Course - Vital Signs Last Recorded V/S: Last Vital Signs Temp 37.2 C 12/24/17 21:31 Pulse 76 12/24/17 21:31 Resp 19 12/24/17 22:35 BP 134/63 12/24/17 22:35 Pulse Ox 97 12/24/17 22:35 Vital Signs - 24 hr 12/24/17 12/24/17 12/24/17 21:31 22:06 22:19 Temperature [ 37.2 C Temporal] Pulse, 76 Peripheral [ Right Pulse Oximetry] Respiratory 18 18 22 H Rate Blood Pressure 157/54 H [Left Upper Arm ] Blood Pressure 123/62 146/59 H [Right Upper Arm] O2 Sat by Pulse 99 98 94 L Oximetry 12/24/17 12/24/17 22:35 22:48 Temperature [ Temporal] Pulse, Peripheral [ Right Pulse Oximetry] Respiratory 19 19 Rate Blood Pressure 149/54 H [Left Upper Arm ] Blood Pressure 134/63 [Right Upper Arm] O2 Sat by Pulse 97 97 Oximetry - Orders/Labs/Meds Orders: Active Orders 24 hr Category Date Time Status Cardiac Monitoring [RC] CONTINUOUS Care 12/24/17 21:30 Active Communication Order [RC] ROUTINE Care 12/24/17 21:30 Active Peripheral IV Care [RC] . DIRECTED Care 12/24/17 21:31 Active Pulse Oximetry [RC] CONTINUOUS Care 12/24/17 21:30 Active Up With Assistance [RC] ASDIRECTED Care 12/24/17 21:30 Active Nothing Per Oral Diet [DIET] Diet 12/24/17 Breakfast Active Chest 2V [CR] Stat Exams 12/24/17 21:30 Ordered CULTURE BLOOD [BC] Stat Lab 12/24/17 21:31 Ordered CULTURE BLOOD [BC] Stat Lab 12/24/17 21:31 Ordered CULTURE STREP A CONFIRMATION [RM] Stat Lab 12/24/17 21:30 Results FREE T3 [REF] Routine Lab 12/24/17 22:30 Ordered INFLUENZA A+B AG SCREEN [RM] Stat Lab 12/24/17 21:30 Ordered STREP SCRN A RAPID W CULT CONF [RM] Stat Lab 12/24/17 21:34 Ordered T4 FREE [CHEM] Stat Lab 12/24/17 22:30 Ordered Sodium Chloride 0.9% [Saline Flush] Med 12/24/17 21:30 Active 10 ml FLUSH ASDIRECTED PRN Blood Culture x2 Reflex Set [OM.PC] Stat Ot 12/24/17 21:30 Ordered Obtain Past Medical Record [OM.PC] Stat Ot 12/24/17 21:30 Active Peripheral IV Insertion Adult [OM.PC] Stat Ot 12/24/17 21:30 Ordered Resuscitation Status Routine Resus Stat 12/24/17 21:30 Ordered Medication Orders Sodium Chloride (Saline Flush) 10 ml FLUSH ASDIRECTED PRN PRN Reason: Keep Vein Open Labs: Laboratory Tests 12/24/17 12/24/17 12/24/17 Range/Units 21:46 21:46 21:46 WBC 14.0 H (4.0-10.2) K/uL RBC 4.92 (3.77-5.09) M/uL Hgb 14.2 (11.7-15.5) g/dL Hct 42.0 (34.0-46.0) % MCV 85.4 D (84.0-98.0) fL MCH 28.9 (28.2-33.3) pg MCHC 33.8 (31.7-36.0) g/dL RDW 13.9 (11.2-14.1) % Plt Count 223 (150-350) K/uL Neut % (Auto) 72.0 (45.0-80.0) % Lymph % (Auto) 14.7 (10.0-50.0) % [place] % (Auto) 7.5 (2.0-14.0) % Eos % (Auto) 5.4 H (0.0-5.0) % Baso % (Auto) 0.4 (0.0-2.0) % Neut # (Auto) 10.06 H (1.40-7.00) K/uL Lymph # (Auto) 2.05 (0.50-3.50) K/uL [place] # (Auto) 1.05 H (0.00-1.00) K/uL Eos # (Auto) 0.76 H (0.00-0.50) K/uL Baso # (Auto) 0.06 (0.00-0.20) K/uL PT (9.8-11.7) SEC INR D-Dimer, Quantitative 499 H (0-400) ng/mL Sodium 139 (136-145) mmol/L Potassium 2.9 L* (3.5-5.1) mmol/L Chloride 101 (98-107) mmol/L Carbon Dioxide 28.2 (21.0-32.0) mmol/L BUN 11 (7-18) mg/dL Creatinine 0.88 (0.51-1.17) mg/dL Est Cr Clr Drug Dosing 37.84 mL/min Estimated GFR (MDRD) > 60 mL/min Glucose 160 H (74-106) mg/dL Lactic Acid (0.4-2.0) mmol/L Calcium 8.6 (8.5-10.1) mg/dL Magnesium 1.6 L (1.8-2.4) mg/dL Total Bilirubin 0.5 (0.2-1.0) mg/dL AST 14 L (15-37) U/L ALT 19 (12-78) U/L Alkaline Phosphatase 121 H (46-116) IU/L Creatine Kinase 57 (26-308) U/L Creatine Kinase Index 3.2 H (0.0-2.5) % CK-MB (CK-2) 1.80 (0.00-3.60) ng/mL Troponin I 0.000 (0.000-0.056) ng/mL NT-Pro-B Natriuret Pep 250 H (0-125) pg/mL Total Protein 8.5 H (6.4-8.2) g/dL Albumin 3.2 L (3.4-5.0) g/dL TSH, Ultra Sensitive 0.292 L (0.358-3.740) mIU/mL 12/24/17 12/24/17 Range/Units 21:46 21:46 WBC (4.0-10.2) K/uL RBC (3.77-5.09) M/uL Hgb (11.7-15.5) g/dL Hct (34.0-46.0) % MCV (84.0-98.0) fL MCH (28.2-33.3) pg MCHC (31.7-36.0) g/dL RDW (11.2-14.1) % Plt Count (150-350) K/uL Neut % (Auto) (45.0-80.0) % Lymph % (Auto) (10.0-50.0) % [place] % (Auto) (2.0-14.0) % Eos % (Auto) (0.0-5.0) % Baso % (Auto) (0.0-2.0) % Neut # (Auto) (1.40-7.00) K/uL Lymph # (Auto) (0.50-3.50) K/uL [place] # (Auto) (0.00-1.00) K/uL Eos # (Auto) (0.00-0.50) K/uL Baso # (Auto) (0.00-0.20) K/uL PT 54.9 H D (9.8-11.7) SEC INR 4.9 D-Dimer, Quantitative (0-400) ng/mL Sodium (136-145) mmol/L Potassium (3.5-5.1) mmol/L Chloride (98-107) mmol/L Carbon Dioxide (21.0-32.0) mmol/L BUN (7-18) mg/dL Creatinine (0.51-1.17) mg/dL Est Cr Clr Drug Dosing mL/min Estimated GFR (MDRD) mL/min Glucose (74-106) mg/dL Lactic Acid 1.4 (0.4-2.0) mmol/L Calcium (8.5-10.1) mg/dL Magnesium (1.8-2.4) mg/dL Total Bilirubin (0.2-1.0) mg/dL AST (15-37) U/L ALT (12-78) U/L Alkaline Phosphatase (46-116) IU/L Creatine Kinase (26-308) U/L Creatine Kinase Index (0.0-2.5) % CK-MB (CK-2) (0.00-3.60) ng/mL Troponin I (0.000-0.056) ng/mL NT-Pro-B Natriuret Pep (0-125) pg/mL Total Protein (6.4-8.2) g/dL Albumin (3.4-5.0) g/dL TSH, Ultra Sensitive (0.358-3.740) mIU/mL Blood cultures 2 were collected Microbiology 12/24/17 21:30 Nasal, Left Influenza Type A Antigen Screen - Final NEGATIVE INFLUENZA A VIRUS AG 12/24/17 21:30 Nasal, Left Influenza Type B Antigen Screen - Final NEGATIVE INFLUENZA B VIRUS AG 12/24/17 21:30 Throat Group A Streptococcus Rapid Screen - Final NEGATIVE STREP A SCREEN Meds: Medications Generic Name Dose Route Start Last Admin Trade Name Freq PRN Reason Stop Dose Admin Sodium Chloride 10 ml 12/24/17 21:30 Saline Flush FLUSH ASDIRECTED PRN Keep Vein Open Discontinued Medications Generic Name Dose Route Start Last Admin Trade Name Freq PRN Reason Stop Dose Admin Albuterol/Ipratropium 3 ml 12/24/17 21:30 12/24/17 21:54 Duoneb 3.0-0.5 Mg/3 Ml NEB 12/24/17 21:31 3 ml ONETIME ONE Administration Budesonide 0.5 mg 12/24/17 21:30 12/24/17 21:54 Pulmicort NEB 12/24/17 21:31 0.5 mg ONETIME ONE Administration Ciprofloxacin 500 mg 12/24/17 22:40 12/24/17 22:46 Ciprofloxacin Hcl PO 12/24/17 22:41 500 mg ONETIME ONE Administration - Radiology Interpretation Free Text/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 Mild atelectasis versus pulmonary infiltrates in the left lower lobe. Moderately elevated right hemidiaphragm. Overall poor inspiratory film with mild calcification of the aortic valve. Departure - Departure Time of Disposition: 23:10 Disposition: Home, Self-Care 01 Condition: Good Clinical Impression: Diabetes mellitus type 2, Factor V deficiency, HTN, Essential hypertension, Hypokalemia, Hypoalbuminemia, Hypomagnesemia COPD (chronic obstructive pulmonary disease) Qualifiers: COPD type: COPD with acute lower respiratory infection Qualified Code(s): J44.0 - Chronic obstructive pulmonary disease with acute lower respiratory infection Hypertension Qualifiers: Hypertension type: essential hypertension Qualified Code(s): I10 - Essential ( primary) hypertension Pneumonia Qualifiers: Pneumonia type: due to unspecified organism Laterality: left Lung location: lower lobe of lung Qualified Code(s): J18.1 - Lobar pneumonia, unspecified organism - Discharge Information Prescriptions: Albuterol/Ipratropium [DuoNeb 3.0-0.5 MG/3 ML] 3 ml NEB QID #60 neb Ciprofloxacin HCl [Cipro] 500 mg PO BID #20 tablet Magnesium Oxide 400 mg PO DAILY #30 tab Instructions: Chronic Obstructive Pulmonary Disease Exacerbation, [id number] , Community-Acquired Pneumonia, Adult, [id number] Referrals: Josse Jain MD [Primary Care Provider] - Forms: ED Department Discharge Additional Instructions: 1. Follow-up with your regular provider in 2 days for reevaluation and recommended repeat CBC, PT/INR, basic metabolic panel, d-dimer, BNP, troponin I , CK, and CK-MB. Discuss today's free T3 and free T4 results at that time with possible further workup for thyroid disease. 2. Hold Coumadin until otherwise directed by your regular provider 3. Consider Mucinex DM once your INR is under control with Mucinex DM and Robitussin-DM never to be taken concurrently 4. Potassium chloride 20 mEq 3 times a day until your potassium has normalized with probable return to previous 20 mEq by mouth daily thereafter 5. High-protein Glucerna supplements twice a day as snacks 6. Recommend that CBC, INR, basic metabolic panel, and magnesium level be repeated at follow up visit with your regular provider in about 10-14 days. 7. Strongly recommend strict compliance with all medical therapy as directed. 8. Follow-up with your dentist as recommended. 9. Consider PFTs once current infection has resolved - Problem List & Annotations (1) Pneumonia SNOMED Code(s): 286774570 Code(s): J18.9 - PNEUMONIA, UNSPECIFIED ORGANISM Status: Acute Priority: High Current Visit: Yes Onset Date: ~12/24/17 Annotation/Comment:: Cipro given in the emergency room. Note mild WBC elevation. Patient cannot provide us with a sputum specimen. Close follow-up by regular provider as per discharge instructions. Qualifiers: Pneumonia type: due to unspecified organism Laterality: left Lung location: lower lobe of lung Qualified Code(s): J18.1 - Lobar pneumonia, unspecified organism (2) COPD (chronic obstructive pulmonary disease) SNOMED Code(s): 11405319 Code(s): J44.9 - CHRONIC OBSTRUCTIVE PULMONARY DISEASE, UNSPECIFIED Status : Chronic Priority: High Current Visit: Yes Annotation/Comment:: Initiate DuoNeb treatments for this patient. She really has a nebulizer unit at home. PFTs after current infection has resolved. Qualifiers: COPD type: COPD with acute lower respiratory infection Qualified Code(s): J44.0 - Chronic obstructive pulmonary disease with acute lower respiratory infection (3) Factor V deficiency SNOMED Code(s): 5575407 Code(s): D68.2 - HEREDITARY DEFICIENCY OF OTHER CLOTTING FACTORS Status: Chronic Priority: Medium Current Visit: Yes Annotation/Comment:: Recurrent DVTs by history with no evidence of acute DVT today despite elevated d -dimer. Note elevated INR today likely secondary to recent Augmentin, Diflucan , and Mucinex DM therapy. (4) Elevated INR SNOMED Code(s): 560922980 Code(s): R79.1 - ABNORMAL COAGULATION PROFILE Status: Acute Priority: High Current Visit: Yes Onset Date: 12/24/17 Annotation/Comment:: As above (5) Hypoalbuminemia SNOMED Code(s): 614971707 Code(s): E88.09 - [facility] DISORDERS OF PLASMA-PROTEIN METABOLISM, NEC Status: Acute Priority: Medium Current Visit: Yes Onset Date: 12/24/17 Annotation/Comment:: Initiate high protein Glucerna twice a day as snacks with close follow-up by her regular provider (6) Hypomagnesemia SNOMED Code(s): 934586252 Code(s): E83.42 - HYPOMAGNESEMIA Status: Acute Priority: Medium Current Visit: Yes Onset Date: 01/31/16 Annotation/Comment:: History of hypomagnesemia in the past with patient noncompliant with her magnesium oxide supplementation. Reinitiate this at this time with close follow-up by regular provider. (7) Hypertension SNOMED Code(s): 70599699 Code(s): I10 - ESSENTIAL (PRIMARY) HYPERTENSION Status: Chronic Priority : Medium Current Visit: Yes Annotation/Comment:: Stable in the emergency room. Note depressed TSH with no current Synthroid therapy. Free T3 and free T4 were drawn. Close follow-up by regular provider. Qualifiers: Hypertension type: essential hypertension Qualified Code(s): I10 - Essential (primary) hypertension (8) Hypokalemia SNOMED Code(s): 37951816 Code(s): E87.6 - HYPOKALEMIA Status: Acute Priority: High Current Visit : Yes Onset Date: 01/31/16 Annotation/Comment:: History of hypokalemia in the past with patient noncompliant with her potassium supplement for quite some time. Loading dose regimen as per discharge instructions with medication compliance strongly encouraged. Close follow-up by her regular provider. (9) Diabetes mellitus SNOMED Code(s): 54683029 Code(s): E11.9 - TYPE 2 DIABETES MELLITUS WITHOUT COMPLICATIONS Status: Chronic Priority: Medium Current Visit: No Annotation/Comment:: Her blood sugars somewhat elevated. Patient does not take Accu-Cheks. Close follow-up by regular provider. Borderline BNP elevation possibly secondary to her renal disease with no true chest pain or anginal complaints. Close follow-up by her regular provider. Qualifiers: Diabetes mellitus type: type 2 Diabetes mellitus fdc insulin use: without fdc use Diabetes mellitus complication status: with circulatory complication Diabetes mellitus complication detail: with other circulatory complications Qualified Code(s): E11.59 - Type 2 diabetes mellitus with other circulatory complications - Problem List Review Problem List Initiated/Reviewed/Updated: Yes - My Orders Last 24 Hours: My Active Orders 12/24/17 21:30 Cardiac Monitoring [RC] CONTINUOUS Communication Order [RC] ROUTINE Pulse Oximetry [RC] CONTINUOUS Up With Assistance [RC] ASDIRECTED Chest 2V [CR] Stat CULTURE STREP A CONFIRMATION [RM] Stat INFLUENZA A+B AG SCREEN [RM] Stat Sodium Chloride 0.9% [Saline Flush] 10 ml FLUSH ASDIRECTED PRN Blood Culture x2 Reflex Set [OM.PC] Stat Obtain Past Medical Record [OM.PC] Stat Peripheral IV Insertion Adult [OM.PC] Stat Resuscitation Status Routine 12/24/17 21:31 Peripheral IV Care [RC] . DIRECTED CULTURE BLOOD [BC] Stat CULTURE BLOOD [BC] Stat 12/24/17 21:34 STREP SCRN A RAPID W CULT CONF [RM] Stat 12/24/17 22:30 FREE T3 [REF] Routine T4 FREE [CHEM] Stat 12/24/17 Breakfast Nothing Per Oral Diet [DIET] - Assessment/Plan Last 24 Hours: My Active Orders 12/24/17 21:30 Cardiac Monitoring [RC] CONTINUOUS Communication Order [RC] ROUTINE Pulse Oximetry [RC] CONTINUOUS Up With Assistance [RC] ASDIRECTED Chest 2V [CR] Stat CULTURE STREP A CONFIRMATION [RM] Stat INFLUENZA A+B AG SCREEN [RM] Stat Sodium Chloride 0.9% [Saline Flush] 10 ml FLUSH ASDIRECTED PRN Blood Culture x2 Reflex Set [OM.PC] Stat Obtain Past Medical Record [OM.PC] Stat Peripheral IV Insertion Adult [OM.PC] Stat Resuscitation Status Routine 12/24/17 21:31 Peripheral IV Care [RC] . DIRECTED CULTURE BLOOD [BC] Stat CULTURE BLOOD [BC] Stat 12/24/17 21:34 STREP SCRN A RAPID W CULT CONF [RM] Stat 12/24/17 22:30 FREE T3 [REF] Routine T4 FREE [CHEM] Stat 12/24/17 Breakfast Nothing Per Oral Diet [DIET] Assessment:: As above Plan: As above. Extensive precautions were given to the patient and her daughter, who are in agreement with the treatment plan. See Patient Instructions for further treatment and plan.
[2017-12-24 22:23] LABS: CHLORIDE,CL 101 mmol/L (98-107); SODIUM,NA 139 mmol/L (136-145)
[2017-12-24] MEDS ORDERED: Ciprofloxacin 500 MG Tab PO ONE (22:40)
[2017-12-24 22:49] VITALS: BP 149/54
== END 2017-12-24 23:10 | disposition home or self-care (01) ==
LOC: LL.ED 21:01
DX: J18.9 Pneumonia, unspecified organism (principal); J44.0 Chronic obstructive pulmonary disease with (acute) lower respiratory infection; D68.2 Hereditary deficiency of other clotting factors; E87.6 Hypokalemia; E88.09 Other disorders of plasma-protein metabolism, not elsewhere classified; E83.42 Hypomagnesemia; I10 Essential (primary) hypertension; E11.42 Type 2 diabetes mellitus with diabetic polyneuropathy; F17.210 Nicotine dependence, cigarettes, uncomplicated; Z88.8 Allergy status to other drugs, medicaments and biological substances; Z88.5 Allergy status to narcotic agent; Z88.0 Allergy status to penicillin; Z88.1 Allergy status to other antibiotic agents; Z88.2 Allergy status to sulfonamides; Z79.899 Other long term (current) drug therapy
CPT/HCPCS: 36415; 71046; 80053; 82550; 82553; 83605; 83735; 83880; 84439; 84443; 84481; 84484; 85025; 85379; 85610; 87040; 87081; 87430; 87804; 94640; 99284; A9270-GY

== ENCOUNTER 2018-10-17 12:44 | Emergency (ER) | payer MEDICARE, BC ==
[2018-10-17 12:51] VITALS: BP 154/95
--- NOTE | 2018-10-17 13:25 | EDM.PDOC ---
ED HPI GENERAL MEDICAL PROBLEM - General Chief Complaint: Lower Extremity Injury/Pain Stated Complaint: Pain in right foot, right foot wound Time Seen by Provider: 10/17/18 12:44 Source of Information: Reports: Patient History Limitations: Reports: No Limitations - History of Present Illness INITIAL COMMENTS - FREE TEXT/NARRATIVE: Patient is a 78-year-old who is well known to myself presents to the ER with redness of the right lower extremity and a medial malleolus ulcer who's been present for about 10 years patient was a heavy smoker and this has been treated multiple times and results Duration: Chronic, Getting Worse Location: Reports: Upper Extremity, Right Severity: Moderate Improves with: Reports: None Worsens with: Reports: Rest Context: Reports: Activity Associated Symptoms: Reports: No Other Symptoms Right Ankle Pain Score (Numeric/FACES): 5 (Patient had been off her pain medications for over a year at this time patient is requesting) - Related Data Allergies Allergy/AdvReac Type Severity Reaction Status Date / Time bacitracin [From Cortisporin] Allergy Rash Verified 10/17/18 12:56 bacitracin zinc Allergy Rash Verified 10/17/18 12:56 [From Cortisporin] hydrocortisone Allergy Rash Verified 10/17/18 12:56 [From Cortisporin] lincomycin HCl Allergy unknown Verified 10/17/18 12:56 [From Lincocin] neomycin [From Cortisporin] Allergy Rash Verified 10/17/18 12:56 neomycin sulfate Allergy Rash Verified 10/17/18 12:56 [From Cortisporin] Penicillins Allergy Hives Verified 10/17/18 12:56 polymyxin B Allergy Rash Verified 10/17/18 12:56 [From Cortisporin] polymyxin B sulfate Allergy Rash Verified 10/17/18 12:56 [From Cortisporin] sulfamethoxazole Allergy unknown Verified 10/17/18 12:56 [From Septra] tioconazole [From Monistat 1] Allergy unknown Verified 10/17/18 12:56 trimethoprim [From Septra] Allergy unknown Verified 10/17/18 12:56 Home Meds: Home Meds Gabapentin [Neurontin] 600 mg PO 1800 06/23/15 [History] SitaGLIPtin [Januvia] 100 mg PO DAILY@1800 01/30/16 [History] Phytonadione [Vitamin K] 100 mcg PO DAILY 03/08/17 [History] Hydrocodone/Acetaminophen [Hydrocodon-Acetaminophen 5-325] 1 each PO BID PRN [History] Warfarin [Coumadin] 5 mg PO DAILY 06/07/18 [History] cephALEXin [Keflex] 500 mg PO Q8H 20 Days #48 cap 10/17/18 [Rx] Past Medical History HEENT History: Reports: Cataract, Hard of Hearing, Impaired Vision, Other (See Below) Other HEENT History: Reading Glasses, no hearing aides Cardiovascular History: Reports: Blood Clots/VTE/DVT, High Cholesterol, Hypertension, PVD, Other (See Below) Other Cardiovascular History: Recurrent DVTs of the legs bilaterally with 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 with patient denying previous history of PE despite previous medical records, peripheral vascular disease requiring bypass surgery at the right leg as below Respiratory History: Reports: COPD, Intubation, Previous, Other (See Below) Other Respiratory History: The patient and her daughter deny previous PE as above Gastrointestinal History: Reports: Cholelithiasis, Chronic Diarrhea, Diverticulosis, Irritable Bowel Syndrome Other Gastrointestinal History: Chronic diarrhea after colon surgery as below Genitourinary History: Reports: Acute Renal Failure, Other (See Below) Other Genitourinary History: Acute renal failure with sepsis in July 2017 [employer] History: Reports: , Other (See Below) Other [employer] History: Menopause in her 50s. Full term without complications during pregnancies or deliveries Musculoskeletal History: Reports: Arthritis, Back Pain, Chronic, Neck Pain, Chronic, Osteoarthritis, Osteoporosis, Other (See Below) Other Musculoskeletal History: Kyphosis Neurological History: Reports: Neuropathy, Diabetic, Neuropathy, Peripheral Psychiatric History: Reports: Anxiety, Depression Endocrine/Metabolic History: Reports: Diabetes, Type II, IDDM, Obesity/BMI 30+, Osteopenia, Osteoporosis, Other (See Below) Other Endocrine/Metabolic History: Patient did previously need insulin therapy, including during hospitalizations, however not on a regular basis. Hematologic History: Reports: Anemia, B12 Deficiency, Blood Transfusion(s), Iron Deficiency, Other (See Below) Other Hematologic History: Blood transfusion in 2004; factor V Leiden deficiency Immunologic History: Reports: None Oncologic (Cancer) History: Reports: Colon, Metastatic Other Oncologic History: Colon cancer in 2006 with possible small hepatic metastasis with surgery as below and also chemotherapy Dermatologic History: Reports: Chronic Cellulitis, Venous Stasis Dermatitis, Other (See Below) Other Dermatologic History: Chronic diabetic right foot ulcers - Infectious Disease History Infectious Disease History: Reports: Chicken Pox, Measles, MRSA - Past Surgical History Head Surgeries/Procedures: Reports: None HEENT Surgical History: Reports: Cataract Surgery, Oral Surgery, Other (See Below) Other HEENT Surgeries/Procedures: Right-sided cataract surgery in November 2005 with left-sided cataract surgery in 2013. Multiple teeth extractions. Cardiovascular Surgical History: Reports: Vascular Surgery, Other (See Below) Other Cardiovascular Surgeries/Procedures: Right-sided femoropopliteal bypass 2. Port-A-Cath placement in 2006 with subsequent removal in July 2017 secondary to Klebsiella pneumoniae sepsis and infected port. Patient denies previous vein stripping despite previous medical records. Respiratory Surgical History: Reports: None GI Surgical History: Reports: Appendectomy, Cholecystectomy, Colon, Colonoscopy , Colostomy, Hernia, Abdominal, Hernia Repair/Other, Other (See Below) Other GI Surgeries/Procedures: Open Cholecystectomy with concomitant appendectomy in 1960. Right-sided hemicolectomy in 2006 secondary to perforated colon cancer with colostomy placement and subsequent colostomy reversal in 2007. Ventral abdominal hernia repair in 1977. Female Surgical History: Reports: Breast Biopsy, Tubal Ligation, Other (See Below) Other Female Surgeries/Procedures: Previous benign breast biopsies. Bilateral tubal ligation in 1977 with concomitant ventral abdominal hernia repair as above. Endocrine Surgical History: Reports: None Neurological Surgical History: Reports: Discectomy, Laminectomy, Lumbar Spine, Other (See Below) Other Neurological Surgeries/Procedures: Lumbar laminectomy and discectomy in 1993 Musculoskeletal Surgical History: Reports: Hip Replacement, Joint Replacement, Other (See Below) Other Musculoskeletal Surgeries/Procedures:: Right hip TEP Oncologic Surgical History: Reports: Other (See Below) Other Oncologic Surgeries/Procedures: Right Hemicolectomy secondary to colon cancer as above Dermatological Surgical History: Reports: None - Past Imaging History Past Imaging History: Reports: Bone Scan (Right foot on 01/09/16), CAT Scan (CT scan of the chest on 10/22/16), MRI (Right ankle on 10/13/13), PET (Feet bilaterally on 09/09/14), Venous Doppler (Stop the studies of the right leg on ) Social & Family History - Family History HEENT: Reports: Macular Degeneration, Other (See Below) Other HEENT Family History: mother with macular degeneration Cardiac: Reports: CAD, Hypertension, CT, Other (See Below) Other Cardiac Family History: Father with CT in his 70s, daughter with hypertension Respiratory: Reports: None GI: Reports: None : Reports: Diabetic Nephropathy, Dialysis, Renal Disease/Insufficiency Other Family History: Son with diabetic nephropathy which required dialysis OBGYN: Reports: None Musculoskeletal: Reports: None Neurological: Reports: CVA Other Neurological Family History: Father with fatal CVA in his 80s Psychiatric: Reports: None Endocrine/Metabolic: Reports: Diabetes, Type I, Diabetes, type II, IDDM Other Endocrine/Metabolic Family History: Son with type 1 diabetes mellitus with secondary renal failure as above, sister with AODM, brother with AODM-ID Hematologic: Reports: None Immunologic: Reports: None Dermatologic: Reports: None Oncologic: Reports: Cervix, Other (See Below) Other Oncologic Family History: Sister with cervical cancer in her 40s - Tobacco Use Smoking Status *Q: Current Every Day Smoker Years of Tobacco use: 95 Packs/Tins Daily: 0.5 - Caffeine Use Caffeine Use: Reports: Coffee - Recreational Drug Use Recreational Drug Use: No - Living Situation & Occupation Living situation: Reports: (1993), with Family (Daughter and son) Occupation: Retired ([employer] ) Review of Systems - Review of Systems Review Of Systems: See Below Constitutional: Reports: No Symptoms Eyes: Reports: No Symptoms Ears: Reports: No Symptoms Nose: Reports: No Symptoms Mouth/Throat: Reports: No Symptoms Respiratory: Reports: No Symptoms GI/Abdominal: Reports: No Symptoms Genitourinary: Reports: No Symptoms Musculoskeletal: Reports: No Symptoms Skin: Reports: No Symptoms Neurological: Reports: No Symptoms Psychiatric: Reports: No Symptoms ED EXAM, GENERAL - Physical Exam Exam: See Below Exam Limited By: No Limitations General Appearance: Alert, WD/WN, No Apparent Distress Ears: Normal External Exam, Normal Canal, Hearing Grossly Normal, Normal TMs Ear Exam: Bilateral Ear: Auricle Normal, Canal Normal, TM normal Nose: Normal Inspection, Normal Mucosa, No Blood Throat/Mouth: Normal Inspection, Normal Lips, Normal Teeth, Normal Gums, Normal Oropharynx, Normal Voice, No Airway Compromise Head: Atraumatic, Normocephalic Neck: Normal Inspection, Supple, Non-Tender, Full Range of Motion Respiratory/Chest: No Respiratory Distress, Lungs Clear, Normal Breath Sounds, No Accessory Muscle Use, Chest Non-Tender Cardiovascular: Normal Peripheral Pulses, Regular Rate, Rhythm, No Edema, No Gallop, No JVD, No Murmur, No Rub GI/Abdominal: Normal Bowel Sounds, Soft, Non-Tender, No Organomegaly, No Distention, No Abnormal Bruit, No Mass (Female) Exam: Normal External Exam, Normal Speculum Exam, Normal Bimanual Exam Rectal (Female) Exam: Normal Exam, Normal Rectal Tone Back Exam: Normal Inspection, Full Range of Motion, NT Neurological: Alert, Oriented, CN II-XII Intact, Normal Cognition, Normal Gait, Normal Reflexes, No Motor/Sensory Deficits Psychiatric: Normal Affect (Right medial malleolus decubitus ulcer), Normal Mood Skin Exam: Other Course - Vital Signs Last Recorded V/S: Last Vital Signs Temp 97.5 F 10/17/18 12:51 Pulse 93 10/17/18 12:51 Resp 18 10/17/18 12:51 BP 154/95 H 10/17/18 12:51 Pulse Ox 95 10/17/18 12:51 - Orders/Labs/Meds Orders: Active Orders 24 hr Category Date Time Status COMPREHENSIVE METABOLIC PN,CMP [CHEM] Stat Lab 10/17/18 12:50 Ordered CULTURE BLOOD [BC] Stat Lab 10/17/18 12:55 Received CULTURE BLOOD [BC] Stat Lab 10/17/18 13:05 Received INR,PT,PROTHROMBIN TIME [COAG] Stat Lab 10/17/18 12:47 Ordered Blood Culture x2 Reflex Set [OM.PC] Stat Oth 10/17/18 12:48 Ordered Labs: Laboratory Tests 10/17/18 Range/Units 12:55 WBC 7.6 (4.0-10.2) K/uL RBC 5.14 H (3.77-5.09) M/uL Hgb 14.2 (11.7-15.5) g/dL Hct 42.8 (34.0-46.0) % MCV 83.3 L (84.0-98.0) fL MCH 27.6 L (28.2-33.3) pg MCHC 33.2 (31.7-36.0) g/dL RDW 15.1 H (11.2-14.1) % Plt Count 177 (150-350) K/uL Neut % (Auto) 67.9 (45.0-80.0) % Lymph % (Auto) 21.2 (10.0-50.0) % Bracken % (Auto) 8.4 (2.0-14.0) % Eos % (Auto) 1.8 (0.0-5.0) % Baso % (Auto) 0.7 (0.0-2.0) % Neut # (Auto) 5.16 (1.40-7.00) K/uL Lymph # (Auto) 1.61 (0.50-3.50) K/uL Bracken # (Auto) 0.64 (0.00-1.00) K/uL Eos # (Auto) 0.14 (0.00-0.50) K/uL Baso # (Auto) 0.05 (0.00-0.20) K/uL Departure - Departure Time of Disposition: 13:35 Disposition: Home, Self-Care 01 Condition: Fair Clinical Impression: Decubitus ulcer, heel, right, unstageable - Discharge Information *PRESCRIPTION DRUG MONITORING PROGRAM REVIEWED*: No *COPY OF PRESCRIPTION DRUG MONITORING REPORT IN PATIENT KEVIN: No Referrals: Josse Jain MD [Primary Care Provider] - Care Plan Goals: Patient seen workup at this time we will dress the wound center home on I would like to see her on Saturday in the clinic for possible - My Orders Last 24 Hours: My Active Orders 10/17/18 12:47 INR,PT,PROTHROMBIN TIME [COAG] Stat 10/17/18 12:48 Blood Culture x2 Reflex Set [OM.PC] Stat 10/17/18 12:50 COMPREHENSIVE METABOLIC PN,CMP [CHEM] Stat 10/17/18 12:55 CULTURE BLOOD [BC] Stat 10/17/18 13:05 CULTURE BLOOD [BC] Stat - Assessment/Plan Last 24 Hours: My Active Orders 10/17/18 12:47 INR,PT,PROTHROMBIN TIME [COAG] Stat 10/17/18 12:48 Blood Culture x2 Reflex Set [OM.PC] Stat 10/17/18 12:50 COMPREHENSIVE METABOLIC PN,CMP [CHEM] Stat 10/17/18 12:55 CULTURE BLOOD [BC] Stat 10/17/18 13:05 CULTURE BLOOD [BC] Stat
[2018-10-17 13:31] LABS: CHLORIDE,CL 97 mmol/L (98-107); SODIUM,NA 132 mmol/L (136-145)
== END 2018-10-17 14:00 | disposition home or self-care (01) ==
LOC: LL.ED 12:44
DX: E11.621 Type 2 diabetes mellitus with foot ulcer (principal); L89.610 Pressure ulcer of right heel, unstageable; I10 Essential (primary) hypertension; F17.210 Nicotine dependence, cigarettes, uncomplicated; Z98.49 Cataract extraction status, unspecified eye; E66.9 Obesity, unspecified; Z88.0 Allergy status to penicillin; Z88.1 Allergy status to other antibiotic agents; Z88.2 Allergy status to sulfonamides; Z88.8 Allergy status to other drugs, medicaments and biological substances; Z79.01 Long term (current) use of anticoagulants; Z79.899 Other long term (current) drug therapy
CPT/HCPCS: 36415; 80053; 85025; 85610; 87040; 99283; 99284

== ENCOUNTER 2020-11-18 14:52 | Inpatient (IN) | payer MEDICARE, BC ==
[2020-11-18] MEDS ORDERED: Octreotide 100 MCG/ML SDV SUBCUT SCH (20:00)
[2020-11-18] MEDS ORDERED: Bismuth Subsalicylate 262 MG/15 ML Susp 236 ML Bottle PO PRN (20:41)
[2020-11-18] MEDS ORDERED: Acetaminophen 500 MG Tab PO PRN (20:41)
[2020-11-18] MEDS ORDERED: traZODone 50 MG Tab PO PRN (20:41)
[2020-11-18] MEDS ORDERED: Atropine/Diphenoxylate 0.025-2.5 MG Tab PO PRN (20:41)
[2020-11-18] MEDS ORDERED: Sodium Chloride 0.9% 10 ML Syringe FLUSH SCH (20:45)
[2020-11-18] MEDS ORDERED: Ertapenem 1 GM Vial IV SCH (20:45)
[2020-11-18] MEDS ORDERED: 50% Dextrose in Water 50 ML Syringe IV PRN (20:49)
[2020-11-18] MEDS ORDERED: Glucagon,Human Recombinant 1 MG Vial IM PRN (20:49)
--- NOTE | 2020-11-18 21:04 | PCM.HP.2 ---
H&P History of Present Illness - General Date of Service: 11/18/20 Admit Problem/Dx: Admission Diagnosis/Problem Admission Diagnosis/Problem Osteomyelitis, Type 2 diabetes, HTN, Diarrhea, Skin candidiasis, Lung CA, Pacreatic CA, Hx of DVT, SVC thrombosis, IVC thrombosis, factor V Leiden mutation. Source of Information: Patient, Old Records History Limitations: Reports: No Limitations - History of Present Illness Initial Comments - Free Text/Narative: Patient is admitted to [facility]. Transferred from [place] in [place]. Hospitalized there from to . Treated for osteomyelitis with DAPTOmycin and ertapenam. Transferred here for continued IV antibiotics and PT/OT. Overall doing well. At her baseline. Ongoing difficulty with diarrhea. No chest pain. No SOB. Fungal skin infections present. Hx of type 2 diabetes. - Related Data Allergies/Adverse Reactions: Allergies Allergy/AdvReac Type Severity Reaction Status Date / Time adhesive Allergy Rash Verified 11/18/20 16:50 bacitracin [From Cortisporin] Allergy Rash Verified 11/18/20 16:50 bacitracin zinc Allergy Rash Verified 11/18/20 16:50 [From Cortisporin] honey Allergy Rash Verified 11/18/20 16:50 [From MediHoney (honey)] hydrocortisone Allergy Rash Verified 11/18/20 16:50 [From Cortisporin] levofloxacin Allergy Rash Verified 11/18/20 16:50 lincomycin HCl Allergy unknown Verified 11/18/20 16:50 [From Lincocin] neomycin [From Cortisporin] Allergy Rash Verified 11/18/20 16:50 neomycin sulfate Allergy Rash Verified 11/18/20 16:50 [From Cortisporin] Penicillins Allergy Hives Verified 11/18/20 16:50 polymyxin B Allergy Rash Verified 11/18/20 16:50 [From Cortisporin] polymyxin B sulfate Allergy Rash Verified 11/18/20 16:50 [From Cortisporin] silver Allergy Cannot Verified 11/18/20 16:50 Remember silver sulfadiazine Allergy Cannot Verified 11/18/20 16:50 [From Silvadene] Remember soap Allergy Other Verified 11/18/20 16:50 sodium acetate Allergy Cannot Verified 11/18/20 16:50 Remember Sulfa (Sulfonamide Allergy Cannot Verified 11/18/20 16:50 Antibiotics) Remember sulfamethoxazole Allergy unknown Verified 11/18/20 16:50 [From ] tioconazole [From Monistat 1] Allergy unknown Verified 11/18/20 16:50 trimethoprim [From Septra] Allergy unknown Verified 11/18/20 16:50 lypholyte Allergy Cannot Uncoded 11/18/20 16:50 Remember xeroform Allergy Cannot Uncoded 11/18/20 16:50 Remember Home Medications: Home Meds Acetaminophen [Acetaminophen Extra Strength] 500 mg PO Q4HR PRN 11/18/20 [History] Amylase/Lipase/Protease [Creon DR 12,000 Units] 1 cap PO TIDMEALS 11/18/20 [History] Bismuth Subsalicylate 30 mg PO TID PRN 11/18/20 [History] Calcium Carbonate [Tums] 500 mg PO TID 11/18/20 [History] Cholecalciferol (Vitamin D3) [Vitamin D3] 2,000 unit PO DAILY 11/18/20 [History] DAPTOmycin [Daptomycin] 350 mg IV Q24H 11/18/20 [History] Diphenoxylate HCl/Atropine [Diphenoxylate-Atrop 2.5-0.025] 1 each PO QID PRN 11/18/20 [History] Ertapenem [INVanz] 1 gm IV Q24H 11/18/20 [History] Gabapentin [Neurontin] 600 mg PO BID 11/18/20 [History] HYDROmorphone HCl/PF [Dilaudid 0.5 mg/0.5 ml Syringe] 0.5 mg IVPUSH Q1H PRN 11/18/20 [History] HYDROmorphone HCl/PF [Dilaudid 1 mg/ml Syringe] 1 mg IVPUSH Q1H PRN 11/18/20 [History] Heparin Sodium [Heparin Lock Flush] 300 unit FLUSH Q12HR 11/18/20 [History] Insulin Aspart [NovoLOG] 2 - 8 unit SQ TID 11/18/20 [History] Loperamide [Imodium] 4 mg PO DAILY PRN 11/18/20 [History] Multivitamin [Multi-Day Vitamins] 1 each PO DAILY 11/18/20 [History] Nystatin 1 applic TP Q12H 11/18/20 [History] Octreotide Acetate 200 mcg SUBCUT Q8H 11/18/20 [History] Ondansetron [Zofran] 8 mg PO ASDIRECTED 11/18/20 [History] Phytonadione [Vitamin K] 200 mcg PO ASDIRECTED 11/18/20 [History] Potassium Chloride 8 meq PO TIDMEALS 11/18/20 [History] Potassium Chloride 20 meq PO BID 11/18/20 [History] Propylene Glycol/Peg 400 [Systane 0.3-0.4% Eye Drops] 1 drop EYEBOTH Q4HR PRN 11/18/20 [History] Sennosides/Docusate Sodium [Senna-S 8.6-50 mg Tablet] 1 each PO BID PRN 11/18/20 [History] Sodium Chloride 0.9% [Saline Flush] 20 ml FLUSH ASDIRECTED 11/18/20 [History] Triamcinolone Acetonide [Triamcinolone Acetonide 0.1% Crm] 1 applic TOP BID 11/18/20 [History] Warfarin [Coumadin] 2.5 mg PO ASDIRECTED 11/18/20 [History] Warfarin [Coumadin] 5 mg PO ASDIRECTED 11/18/20 [History] glipiZIDE [Glipizide ER] 5 mg PO DAILY 11/18/20 [History] traZODone 50 mg PO BEDTIME PRN 11/18/20 [History] Past Medical History HEENT History: Reports: Cataract, Hard of Hearing, Impaired Vision, Other (See Below) Other HEENT History: Reading Glasses, no hearing aides Cardiovascular History: Reports: Blood Clots/VTE/DVT, High Cholesterol, Hypertension, PVD, Other (See Below) Other Cardiovascular History: Recurrent DVTs of the legs bilaterally with 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 with patient denying previous history of PE despite previous medical records, peripheral vascular disease requiring bypass surgery at the right leg as below Respiratory History: Reports: COPD, Intubation, Previous, Other (See Below) Other Respiratory History: The patient and her daughter deny previous PE as above Gastrointestinal History: Reports: Cholelithiasis, Chronic Diarrhea, Diverticulosis, Irritable Bowel Syndrome Other Gastrointestinal History: Chronic diarrhea after colon surgery as below Genitourinary History: Reports: Acute Renal Failure, Other (See Below) Other Genitourinary History: Acute renal failure with sepsis in July 2017 [employer] History: Reports: , Other (See Below) Other OB/BYN History: Menopause in her 50s. Full term without complications during pregnancies or deliveries Musculoskeletal History: Reports: Arthritis, Back Pain, Chronic, Neck Pain, Chronic, Osteoarthritis, Osteoporosis, Other (See Below) Other Musculoskeletal History: Kyphosis Neurological History: Reports: Neuropathy, Diabetic, Neuropathy, Peripheral Psychiatric History: Reports: Anxiety, Depression Endocrine/Metabolic History: Reports: Diabetes, Type II, IDDM, Obesity/BMI 30+, Osteopenia, Osteoporosis, Other (See Below) Other Endocrine/Metabolic History: Patient did previously need insulin therapy, including during hospitalizations, however not on a regular basis. Hematologic History: Reports: Anemia, B12 Deficiency, Blood Transfusion(s), Iron Deficiency, Other (See Below) Other Hematologic History: Blood transfusion in 2004; factor V Leiden deficiency Immunologic History: Reports: None Oncologic (Cancer) History: Reports: Colon, Metastatic Other Oncologic History: Colon cancer in 2006 with possible small hepatic metastasis with surgery as below and also chemotherapy Dermatologic History: Reports: Chronic Cellulitis, Venous Stasis Dermatitis, Other (See Below) Other Dermatologic History: Chronic diabetic right foot ulcers - Infectious Disease History Infectious Disease History: Reports: Chicken Pox, Measles, MRSA - Past Surgical History Head Surgeries/Procedures: Reports: None HEENT Surgical History: Reports: Cataract Surgery, Oral Surgery, Other (See Below) Other HEENT Surgeries/Procedures: Right-sided cataract surgery in November 2005 with left-sided cataract surgery in 2013. Multiple teeth extractions. Cardiovascular Surgical History: Reports: Vascular Surgery, Other (See Below) Other Cardiovascular Surgeries/Procedures: Right-sided femoropopliteal bypass 2. Port-A-Cath placement in 2006 with subsequent removal in July 2017 secondary to Klebsiella pneumoniae sepsis and infected port. Patient denies previous vein stripping despite previous medical records. Respiratory Surgical History: Reports: None GI Surgical History: Reports: Appendectomy, Cholecystectomy, Colon, Colonoscopy, Colostomy, Hernia, Abdominal, Hernia Repair/Other, Other (See Below) Other GI Surgeries/Procedures: Open Cholecystectomy with concomitant appendectomy in 1960. Right-sided hemicolectomy in 2006 secondary to perforated colon cancer with colostomy placement and subsequent colostomy reversal in 2007. Ventral abdominal hernia repair in 1977. Female Surgical History: Reports: Breast Biopsy, Tubal Ligation, Other (See Below) Other Female Surgeries/Procedures: Previous benign breast biopsies. Bilateral tubal ligation in 1977 with concomitant ventral abdominal hernia repair as above. Endocrine Surgical History: Reports: None Neurological Surgical History: Reports: Discectomy, Laminectomy, Lumbar Spine, Other (See Below) Other Neurological Surgeries/Procedures: Lumbar laminectomy and discectomy in 1993 Musculoskeletal Surgical History: Reports: Hip Replacement, Joint Replacement, Other (See Below) Other Musculoskeletal Surgeries/Procedures:: Right hip TEP Oncologic Surgical History: Reports: Other (See Below) Other Oncologic Surgeries/Procedures: Right Hemicolectomy secondary to colon cancer as above Dermatological Surgical History: Reports: None - Past Imaging History Past Imaging History: Reports: Bone Scan (Right foot on 01/09/16), CAT Scan (CT scan of the chest on 10/22/16), MRI (Right ankle on 10/13/13), PET (Feet b ilaterally on 09/09/14), Venous Doppler (Stop the studies of the right leg on 02/14/16) Social & Family History - Family History HEENT: Reports: Macular Degeneration, Other (See Below) Other HEENT Family History: mother with macular degeneration Cardiac: Reports: CAD, Hypertension, ND, Other (See Below) Other Cardiac Family History: Father with ND in his 70s, daughter with hypertension Respiratory: Reports: None GI: Reports: None : Reports: Diabetic Nephropathy, Dialysis, Renal Disease/Insufficiency Other Family History: Son with diabetic nephropathy which required dialysis OBGYN: Reports: None Musculoskeletal: Reports: None Neurological: Reports: CVA Other Neurological Family History: Father with fatal CVA in his 80s Psychiatric: Reports: None Endocrine/Metabolic: Reports: Diabetes, Type I, Diabetes, type II, IDDM Other Endocrine/Metabolic Family History: Son with type 1 diabetes mellitus with secondary renal failure as above, sister with AODM, brother with AODM-ID Hematologic: Reports: None Immunologic: Reports: None Dermatologic: Reports: None Oncologic: Reports: Cervix, Other (See Below) Other Oncologic Family History: Sister with cervical cancer in her 40s - Tobacco Use Tobacco Use Status *Q: Former Tobacco User Used Tobacco, but Quit: Yes Month/Year Tobacco Last Used: 08/2019 - Caffeine Use Caffeine Use: Reports: Coffee - Recreational Drug Use Recreational Drug Use: No - Living Situation & Occupation Living situation: Reports: (1993), with Family (Daughter and son) Occupation: Retired ([employer] ) H&P Review of Systems - Review of Systems: Review Of Systems: See Below General: Denies: Fever HEENT: Reports: Glasses. Denies: Sinus Congestion, Sore Throat Pulmonary: Reports: Shortness of Breath. Denies: Wheezing, Cough Cardiovascular: Denies: Chest Pain, Palpitations Gastrointestinal: Reports: Diarrhea. Denies: Abdominal Pain, Nausea Genitourinary: Denies: Dysuria, Frequency Skin: Reports: Rash Psychiatric: Denies: Confusion, Depression, Anxiety Neurological: Denies: Dizziness Exam - Exam Exam: See Below - Exam General: Alert, Oriented HEENT: Conjunctiva Clear, Mucosa Moist & [place], Posterior Pharynx Clear Neck: Supple Lungs: Clear to Auscultation, Normal Respiratory Effort Cardiovascular: Regular Rate, Regular Rhythm GI/Abdominal Exam: Normal Bowel Sounds, Soft, Non-Tender Extremities: Normal Inspection Skin: Warm, Dry Neuro Extensive - Mental Status: Alert, Oriented x3, Normal Mood/Affect Sepsis Event Note - Evaluation Sepsis Screening Result: No Definite Risk - Problem List (1) Osteomyelitis SNOMED Code(s): 20577963 ICD Code: M86.9 - OSTEOMYELITIS, UNSPECIFIED Status: Acute Current Visit: Yes (2) Diabetes mellitus type 2 SNOMED Code(s): 23472167 ICD Code: E11.9 - TYPE 2 DIABETES MELLITUS WITHOUT COMPLICATIONS Status: Chronic Priority: Medium Current Visit: No Problem Details: Accu-Cheks stable. (3) HTN, Essential hypertension SNOMED Code(s): 89213042 ICD Code: I10 - ESSENTIAL (PRIMARY) HYPERTENSION Status: Chronic Priority: Medium Current Visit: No Problem Details: stable with medication (4) Venous stasis syndrome SNOMED Code(s): 947590962 ICD Code: I87.2 - VENOUS INSUFFICIENCY (CHRONIC) (PERIPHERAL) Status: Chronic Priority: Medium Current Visit: No (5) DVT, Deep venous thrombosis SNOMED Code(s): 443103998 ICD Code: I82.409 - ACUTE EMBOLISM AND THOMBOS UNSP DEEP VN UNSP LOWER EXTREMITY Status: Chronic Priority: Medium Current Visit: No Problem Details: No evidence of recurrence. Currently on Coumadin with elevated INR, which will be held today with repeat INR and reinitiation of Coumadin therapy depending on these results (6) Factor V Leiden mutation SNOMED Code(s): 281022289 ICD Code: D68.51 - ACTIVATED PROTEIN C RESISTANCE Status: Chronic Priority: Medium Current Visit: No (7) Hypokalemia SNOMED Code(s): 07699595 ICD Code: E87.6 - HYPOKALEMIA Status: Chronic Priority: Medium Current Visit: No Problem Details: Increase potassium supplement with repeat blood work at time of the vancomycin level tomorrow. Problem List Initiated/Reviewed/Updated: Yes Orders Last 24hrs: Active Orders 24 hr Category Date Time Status Patient Status [ADT] Routine ADT 11/18/20 20:31 Active Blood Glucose Check, Bedside [RC] QIDACANDBED Care 11/18/20 20:30 Active Communication Order [RC] Per Unit Routine Care 11/18/20 20:39 Active Communication Order [RC] Per Unit Routine Care 11/18/20 20:39 Active Diabetes Education [RC] Click to Edit Care 11/18/20 20:35 Active Oxygen Therapy [RC] PRN Care 11/18/20 20:31 Active Up With Assistance [RC] 08,20 Care 11/18/20 20:30 Active Vital Signs [RC] Q12HR Care 11/18/20 20:31 Active OT Evaluation and Treatment [CONS] Routine Cons 11/18/20 20:30 Active PT Evaluation and Treatment [CONS] Routine Cons 11/18/20 20:30 Active [employer] Diet [DIET] Diet 11/19/20 Breakfast Active Acetaminophen [Tylenol Extra Strength] Med 11/18/20 20:41 Active 500 mg PO Q4HR PRN Amylase/Lipase/Protease [Creon DR 12,000 Units] Med 11/19/20 08:00 Active 1 cap PO TIDMEALS Atropine/Diphenoxylate [Lomotil 0.025-2.5 MG] Med 11/18/20 20:41 Active 1 tab PO QID PRN Bismuth Subsalicylate [Pepto Bismol] Med 11/18/20 20:41 Active 30 ml PO TID PRN Calcium Carbonate [Tums] Med 11/19/20 08:00 Active 500 mg PO TID Cholecalciferol (Vitamin D3) [Vitamin D3] Med 11/19/20 08:00 Ordered 2,000 unit PO DAILY DAPTOmycin 350 mg Med 11/19/20 08:00 Active Sodium Chloride 0.9% [Normal Saline] 100 ml IV Q24H Dextrose 50% in Water Med 11/18/20 20:49 Active 50 ml IV ASDIRECTED PRN Docusate Sodium/Sennosides [Senna Plus] Med 11/18/20 20:41 Active 1 tab PO BID PRN Ertapenem [INVanz] 1 gm Med 11/19/20 08:30 Active Sodium Chloride 0.9% [Normal Saline] 100 ml IV Q24H Gabapentin Med 11/19/20 08:00 Ordered 600 mg PO BID Glucagon,Human Recombinant [GlucaGen] Med 11/18/20 20:49 Active 1 mg IM ASDIRECTED PRN HYDROmorphone HCl/PF [Dilaudid 0.5 mg/0.5 ml Syringe] Med 11/18/20 20:41 Ordered 0.5 mg IVPUSH Q1H PRN HYDROmorphone HCl/PF [Dilaudid 1 mg/ml Syringe] Med 11/18/20 20:41 Ordered 1 mg IVPUSH Q1H PRN Heparin Sodium [Heparin Lock Flush 100 Units/ML] Med 11/18/20 20:26 Active 300 units FLUSH ASDIRECTED PRN Heparin Sodium [Heparin Lock Flush 100 Units/ML] Med 11/18/20 21:00 Active 300 units FLUSH Q12H Heparin Sodium [Heparin Lock Flush 100 Units/ML] Med 11/18/20 21:00 Active 300 units FLUSH Q12H Insulin Lispro [HumaLOG] Med 11/19/20 07:30 Ordered See Dose Instructions SUBCUT BIDAC Loperamide [Imodium] Med 11/18/20 20:41 Ordered 4 mg PO DAILY PRN Multivitamin [Multi-Day Vitamins] Med 11/19/20 08:00 Ordered 1 each PO DAILY Nystatin [Nystop] Med 11/18/20 20:45 Ordered DOSE gm TOP Q12H Octreotide Acetate [Octreotide Acetate] Med 11/18/20 20:45 Ordered 200 mcg SUBCUT Q8H Ondansetron Med 11/18/20 20:45 Ordered 8 mg PO ASDIRECTED Phytonadione [Vitamin K] Med 11/18/20 20:45 Ordered 200 mcg PO ASDIRECTED Potassium Chloride [Potassium Chloride] Med 11/19/20 08:00 Ordered 20 meq PO BID Propylene Glycol/Peg 400 [Systane 0.3-0.4% Eye Drops] Med 11/18/20 20:41 Ordered 1 drop EYEBOTH Q4HR PRN Sodium Chloride 0.9% [Saline Flush] Med 11/18/20 20:26 Active 10 ml FLUSH ASDIRECTED PRN Sodium Chloride 0.9% [Saline Flush] Med 11/19/20 08:30 Active 10 ml FLUSH Q24H Sodium Chloride 0.9% [Saline Flush] Med 11/18/20 20:45 Ordered 20 ml FLUSH ASDIRECTED Sodium Chloride 0.9% [Saline Flush] Med 11/18/20 21:00 Active 20 ml FLUSH Q12H Sodium Chloride 0.9% [Saline Flush] Med 11/18/20 21:00 Active 20 ml FLUSH Q12H Sodium Chloride 0.9% [Saline Flush] Med 11/18/20 20:00 Active 20 ml FLUSH Q12HR Triamcinolone Acetonide [Triamcinolone Acetonide 0.1% Med 11/19/20 08:00 Ordered Crm] DOSE gm TOP BID glipiZIDE [Glucotrol XL] Med 11/19/20 08:00 Active 5 mg PO DAILY traZODone Med 11/18/20 20:41 Ordered 50 mg PO BEDTIME PRN Glucose Management Sub Q Reflex [OM.PC] Click to Edit Oth 11/18/20 20:30 Active Resuscitation Status Routine Resus Stat 11/18/20 20:30 Ordered Medication Orders Acetaminophen (Acetaminophen 500 Mg Tab) 500 mg PO Q4HR PRN PRN Reason: Pain (mild 1-3) Lipase/Protease/Amylase (Amylase/Lipase/Protease 12,000 Unit Cap.Cr) 1 cap PO TIDMEALS JOS Bismuth Subsalicylate (Bismuth Subsalicylate 262 Mg/15 Ml Susp 236 Ml Bottle) 30 ml PO TID PRN PRN Reason: Indigestion Calcium Carbonate/Glycine (Calcium Carbonate 500 Mg Tab.Chew) 500 mg PO TID JOS Dextrose/Water (50% Dextrose In Water 50 Ml Syringe) 50 ml IV ASDIRECTED PRN PRN Reason: Hypoglycemia Diphenoxylate HCl/Atropine (Atropine/Diphenoxylate 0.025-2.5 Mg Tab) 1 tab PO QID PRN PRN Reason: Diarrhea Glipizide (Glipizide 5 Mg Tab.Er) 5 mg PO DAILY JOS Glucagon (Glucagon,Human Recombinant 1 Mg Vial) 1 mg IM ASDIRECTED PRN PRN Reason: Hypoglycemia Heparin Sodium (Porcine) (Heparin Sodium 100 Units/Ml 5 Ml Syringe) 300 units FLUSH Q12H JOS Heparin Sodium (Porcine) (Heparin Sodium 100 Units/Ml 5 Ml Syringe) 300 units FLUSH Q12H JOS Heparin Sodium (Porcine) (Heparin Sodium 100 Units/Ml 5 Ml Syringe) 300 units FLUSH ASDIRECTED PRN PRN Reason: PER FACILITY PROTOCOL Daptomycin 350 mg/ Sodium (Chloride) 100 mls @ 200 mls/hr IV Q24H JOS Stop: 12/05/20 08:30 Ertapenem 1 gm/ Sodium (Chloride) 100 mls @ 200 mls/hr IV Q24H JOS Stop: 12/05/20 09:00 Insulin Human Lispro (Insulin Lispro 100 Units/Ml 3 Ml Vial) 0 unit SUBCUT BIDAC JOS Non-Formulary Medication (Cholecalciferol (Vitamin D3) [Vitamin D3]) 2,000 unit PO DAILY JOS Non-Formulary Medication (Gabapentin) 600 mg PO BID JOS Non-Formulary Medication (Hydromorphone Hcl/Pf [Dilaudid 0.5 Mg/0.5 Ml Syringe]) 0.5 mg IVPUSH Q1H PRN PRN Reason: Pain Non-Formulary Medication (Hydromorphone Hcl/Pf [Dilaudid 1 Mg/Ml Syringe]) 1 mg IVPUSH Q1H PRN PRN Reason: Severe Pain Non-Formulary Medication (Loperamide [Imodium]) 4 mg PO DAILY PRN PRN Reason: Diarrhea Non-Formulary Medication (Multivitamin [Multi-Day Vitamins]) 1 each PO DAILY JOS Non-Formulary Medication (Octreotide Acetate [Octreotide Acetate]) 200 mcg SUBCUT Q8H JOS Non-Formulary Medication (Ondansetron) 8 mg PO ASDIRECTED JOS Non-Formulary Medication (Potassium Chloride [Potassium Chloride]) 20 meq PO BID JOS Non-Formulary Medication (Propylene Glycol/Peg 400 [Systane 0.3-0.4% Eye Drops]) 1 drop EYEBOTH Q4HR PRN PRN Reason: Dry Eyes Nystatin (Nystatin Topical Powder 15 Gm Bottle) gm TOP Q12H JOS Phytonadione (Phytonadione 100 Mcg Tab) 200 mcg PO ASDIRECTED JOS Senna/Docusate Sodium (Docusate Sodium/Sennosides 50-8.6 Mg Tab) 1 tab PO BID PRN PRN Reason: Constipation Sodium Chloride (Sodium Chloride 0.9% 10 Ml Syringe) 10 ml FLUSH Q24H JOS Sodium Chloride (Sodium Chloride 0.9% 10 Ml Syringe) 20 ml FLUSH Q12HR JOS Sodium Chloride (Sodium Chloride 0.9% 10 Ml Syringe) 20 ml FLUSH Q12H OJS Sodium Chloride (Sodium Chloride 0.9% 10 Ml Syringe) 20 ml FLUSH Q12H JOS Sodium Chloride (Sodium Chloride 0.9% 10 Ml Syringe) 10 ml FLUSH ASDIRECTED PRN PRN Reason: PER PROTOCOL Sodium Chloride (Sodium Chloride 0.9% 10 Ml Syringe) 20 ml FLUSH ASDIRECTED JOS Trazodone HCl (Trazodone 50 Mg Tab) 50 mg PO BEDTIME PRN PRN Reason: Insomnia Triamcinolone Acetonide (Triamcinolone Acetonide 0.1% Crm 15 Gm Tube) gm TOP BID [facility] Assessment/Plan Comment:: Continue IV DAPTOmycin and ertapenem. Resume previous medications from hospitalization in [place]. Insulin sliding scale. Consult PT and OT.
[2020-11-18] MEDS ORDERED: Loperamide 2 MG Tab PO PRN (21:05)
[2020-11-18] MEDS ORDERED: Ondansetron 4 MG Tab.DIS PO PRN (21:06)
[2020-11-18] MEDS ORDERED: Polyvinyl Alcohol 1.4% Ophth Soln 15 ML Bottle EYEBOTH PRN (21:08)
[2020-11-18] MEDS: Nystatin Topical Powder 15 GM Bottle TOP SCH (21:42)
[2020-11-18] MEDS ORDERED: HYDROmorphone 1 MG/ML Syringe IVPUSH PRN (22:00)
[2020-11-18] MEDS: Sodium Chloride 0.9% 10 ML Syringe FLUSH SCH ×3 (22:02→22:06)
[2020-11-19] MEDS ORDERED: Insulin Lispro 100 Units/ML 3 ML Vial SUBCUT SCH (07:30)
[2020-11-19] MEDS: Phytonadione 100 MCG Tab PO SCH (08:12)
[2020-11-19] MEDS: Cholecalciferol (Vitamin D3) 25 MCG Tab PO SCH (08:13)
[2020-11-19] MEDS: Calcium Carbonate 500 MG Tab.Chew PO SCH ×4 (08:14→17:24)
[2020-11-19] MEDS: Potassium Chloride 20 MEQ Tab.ER PO SCH ×2 (08:14→17:24)
[2020-11-19] MEDS: Gabapentin 300 MG Cap PO SCH ×2 (08:14→17:24)
[2020-11-19] MEDS: Amylase/Lipase/Protease 12,000 Unit Cap.CR PO SCH ×3 (08:15→17:24)
[2020-11-19] MEDS: glipiZIDE 5 MG Tab.ER PO SCH (08:15)
[2020-11-19] MEDS: Octreotide 100 MCG/ML SDV SUBCUT SCH ×3 (08:16→23:02)
[2020-11-19] MEDS: Multivitamin Tab PO SCH (08:16)
[2020-11-19] MEDS: Triamcinolone Acetonide 0.1% Crm 15 GM Tube TOP SCH ×2 (08:18→17:25)
[2020-11-19] MEDS: Nystatin Topical Powder 15 GM Bottle TOP SCH ×2 (08:18→20:43)
[2020-11-19] MEDS: Sodium Chloride 0.9% 10 ML Syringe FLUSH SCH ×7 (08:20→20:43)
[2020-11-19] MEDS: Insulin Lispro 100 Units/ML 3 ML Vial SUBCUT SCH ×3 (08:22→17:24)
[2020-11-19] MEDS: Ertapenem 1 GM in Sodium Chloride 0.9% 100 ML IV SCH (09:00)
[2020-11-19] MEDS: HYDROmorphone 0.5 MG/0.5 ML Syringe IVPUSH PRN (18:59)
[2020-11-20] MEDS: Sodium Chloride 0.9% 10 ML Syringe FLUSH SCH ×7 (07:53→21:17)
[2020-11-20] MEDS: Octreotide 100 MCG/ML SDV SUBCUT SCH ×3 (07:56→23:00)
[2020-11-20] MEDS: Phytonadione 100 MCG Tab PO SCH (08:00)
[2020-11-20] MEDS: Insulin Lispro 100 Units/ML 3 ML Vial SUBCUT SCH ×3 (08:00→17:09)
[2020-11-20] MEDS: Amylase/Lipase/Protease 12,000 Unit Cap.CR PO SCH ×3 (08:01→17:08)
[2020-11-20] MEDS: Gabapentin 300 MG Cap PO SCH ×2 (08:01→17:09)
[2020-11-20] MEDS: Potassium Chloride 20 MEQ Tab.ER PO SCH ×2 (08:01→17:09)
[2020-11-20] MEDS: Multivitamin Tab PO SCH (08:02)
[2020-11-20] MEDS: Cholecalciferol (Vitamin D3) 25 MCG Tab PO SCH (08:02)
[2020-11-20] MEDS: glipiZIDE 5 MG Tab.ER PO SCH (08:03)
[2020-11-20] MEDS: Triamcinolone Acetonide 0.1% Crm 15 GM Tube TOP SCH ×2 (08:04→17:10)
[2020-11-20] MEDS: Calcium Carbonate 500 MG Tab.Chew PO SCH ×3 (08:04→17:08)
[2020-11-20] MEDS: Ertapenem 1 GM in Sodium Chloride 0.9% 100 ML IV SCH (08:39)
[2020-11-20] MEDS: Nystatin Topical Powder 15 GM Bottle TOP SCH (08:39)
[2020-11-20] MEDS ORDERED: Triamcinolone Acetonide 0.1% Crm 15 GM Tube TOP PRN (18:30)
[2020-11-20] MEDS ORDERED: Nystatin Topical Powder 15 GM Bottle TOP PRN (18:30)
--- OUTSIDE RECORDS SUMMARY | 2020-11-21 07:58 | XMSREPORT ---
:1940 Author Organization [facility] s Address [facility] [place] [address] Care Team Providers Name Role Phone Provider, Attributed RESOURCE Attributed Provider Unavailab Opal Payne PA-C Primary Care Provider Debbie Engel MD Unavailable Reason for Referral (Routine) Status Reason Specialty Diagnoses / Procedures Referred By Eren valencia Referred To Contact [facility] [address] [place] [address] Phone: Reason for Visit Reason Comments Auth/Cert Status Reason Specialty Diagnoses / Procedures Referred By Eren valencia Referred To Contact Encounter Details Date Type Department Care Team Description 10/18/2020 - Hospital Encounter [facility] [place], Dehydration 11/18/2020 7S MD [place] [address] [place] [address] [place] [address] [phone] Allergies Active Allergy Reactions Severity Noted Date Comments Adhesives Rash 02/25/2013 Mepilex Border dressing Bacitracin Unknown/Not 02/14/2012 Verified Npxrmlvd-Vrdlcxgzr-Xm Rash 11/10/2013 Cortizone Unknown/Not 02/14/2012 Verified Levofloxacin Itching, Rash 04/06/2016 Lincocin Unknown/Not 02/14/2012 Verified Alginate - Unknown/Not 02/25/2013 Patient unable to Carboxymethylcellulose - Silver Verified give me symptoms Tioconazole Unknown/Not 02/14/2012 Verified Penicillin Hives (High) High 02/14/2012 Sulfamethoxazole W-Trimethoprim Unknown/Not 2 Verified Silver Sulfadiazine Other (Specify in 11/26/2012 Bli ster with Comments) silvadene cream , anything with silver (aquacel wound products) Silver Picrate Rash 04/06/2016 Silver produc ts Soap Itching 11/26/2012 Hospital soap a nd lotions, uses dove. Sodium Acetate Unknown/Not 02/14/2012 Verified Sulfa Drugs Unknown/Not 02/14/2012 Verified Sulfamethoxazole W-Trimethoprim Rash 6 Lypholyte Unknown/Not 02/14/2012 Verified Bismuth Tribromoph-Petrolatum Unknown/Not 02/25/2013 Patient not able Verified to give me symptoms documented as of this encounter (statuses as of 11/18/2020) Medications Medication Sig Dispensed Refills Start End Status Date Date Misc. Devices WALKER WITH 4 WHEELS WITH HAND BRAKES (NO SEAT) 0 Active (WALKER) MISC Use as needed when ambulatin g. Dx: Right hip arthroplasty and prosthesis, weakness and unsteady gait warfarin (COUMADIN) [facility] 80 tablet 3 07/16/20 Active 5 mg Anticoagulation 17 tabletIndications: Pt:Take as History of DVT directed. (deep vein (Insurance thrombosis), Purposes: 2.5-5 mg Elevated factor daily dose range) VIII level, Call [phone] Thrombosis of if ? subclavian artery (HCC), Heterozygous factor V Leiden mutation (HCC) phytonadione, Take 200 mcg by 100 tablet 3 07/16/20 Active vitamin K, 100 MCG mouth 1 time per 17 TABS tablet day while on warfarin to stabilize labile INRs and dietary vitamin K consumption. loperamide Take 2 caps after 20 capsule 0 08/07/20 Active (IMODIUM) 2 mg the first loose 17 capsuleIndications: stool, then 1 cap Diarrhea, after each loose unspecified type stool, but no more than 8 caps per day. glipiZIDE ER Take 1 tablet by 0 12/17/19 Active (GLUCOTROL XL) 5 mg mouth 1 time per 20 extended release day tablet (24 hr) triamcinolone Apply topically 2 28.5 g 1 07/18/20 Active acetonide times a day 20 (KENALOG,ARISTOCORT ) 0.1 % creamIndications: Eczema, unspecified type warfarin (COUMADIN) [facility] 30 tablet 0 07/22/20 Active 2.5 MG Anticoagulation 20 tabletIndications: Pt:Take as Elevated factor directed. VIII level, (Insurance Peripheral vascular Purposes: 2.5-3.75 disease (HCC), SVC mg daily dose (superior vena cava range) Call obstruction), if Thrombosis of questions. subclavian artery ([facility]), Heterozygous factor V Leiden mutation ([facility]) cadsue-vyvszzum-xcz Take 1 capsule by 90 capsule 11 09/13/19 0 09/18/ Active lase (CREON 12,000) mouth 3 times a 2021 12-38-60 KU day with meals capsuleIndications: Pancreatic insufficiency potassium chloride Take 1 tablet (20 90 tablet 3 09/21/19 Active (KLOR-CON M20) 20 mEq) by mouth 2 21 MEQ CR times a day tabletIndications: Hypokalemia diphenoxylate-atrop Take 1 tablet by 40 tablet 0 09/21/19 Active ine (LOMOTIL) mouth 4 times a 2.5-0.025 mg day as needed for tabletIndications: diarrhea Diarrhea, unspecified type ondansetron Take 1 tablet 30 tablet 1 09/21/19 Acti ve (ZOFRAN) 8 MG (8mg) by mouth, 21 tabletIndications: one hour prior to Adenocarcinoma of radiotherapy. right lung (HCC), Malignant neoplasm of head of pancreas (HCC) DAPTOmycin Administer 350 mg 0 10/27/19 04/12/ A ctive (CUBICIN) 6 mg/kg = intravenously 2020 350 mg in sodium Every 24 hours chloride 0.9% 50 mLIndications: Subacute osteomyelitis of right hand (HCC) ertapenem (INVanz) Administer 1,000 0 10/27/19 04/ 2/ Active 1,000 mg in sodium mg intravenously 2020 chloride 0.9% 50 Every 24 hours mLIndications: Indications: Outpatient OUTPATIENT antimicrobial ANTIMICROBIAL therapy THERAPY HYDROmorphone Administer 0.5 mL 0 11/19/19 Active (DILAUDID) 0.5 (0.5 mg) 21 mg/0.5 mL SOLN intravenously injection solution Every hour as (conc: 0.5 needed for mg/0.5mL)Indication moderate pain s: Osteomyelitis (HCC), Type 2 diabetes mellitus with diabetic peripheral angiopathy without gangrene, without long-term current use of insulin (HCC), Diarrhea, unspecified type, Hypokalemia, Dehydration, 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), Finger infection, Skin candidiasis, Superior vena cava thrombosis (HCC), Essential hypertension, benign, IVC thrombosis (HCC), Heterozygous factor V Leiden mutation (HCC), Malignant neoplasm of head of pancreas (HCC) HYDROmorphone Administer 1 mL (1 0 11/19/19 Active (DILAUDID) 1 mg/mL mg) intravenously 21 SOLN injection Every hour as solution (conc: 1 needed for severe mg/mL)Indications: pain Osteomyelitis (HCC), Type 2 diabetes mellitus with diabetic peripheral angiopathy without gangrene, without long-term current use of insulin (HCC), Diarrhea, unspecified type, Hypokalemia, Dehydration, 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), Finger infection, Skin candidiasis, Superior vena cava thrombosis (HCC), Essential hypertension, benign, IVC thrombosis (HCC), Heterozygous factor V Leiden mutation (HCC), Malignant neoplasm of head of pancreas (HCC) calcium carbonate Take 1 tablet (500 90 tablet 0 11/19/19 Active (TUMS) 500 MG mg) by mouth 3 21 chewable times a day with tabletIndications: meals Osteomyelitis (HCC), Type 2 diabetes mellitus with diabetic peripheral angiopathy without gangrene, without long-term current use of insulin (HCC), Diarrhea, unspecified type, Hypokalemia, Dehydration, 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), Finger infection, Skin candidiasis, Superior vena cava thrombosis (HCC), Essential hypertension, benign, IVC thrombosis (HCC), Heterozygous factor V Leiden mutation (HCC), Malignant neoplasm of head of pancreas (HCC) traZODone (DESYREL) Take 1 tablet (50 0 11/19/19/ Active 50 mg mg) by mouth at 2021 tabletIndications: bedtime as needed Osteomyelitis for other (HCC), Type 2 (Specify) diabetes mellitus (insomnia) with diabetic peripheral angiopathy without gangrene, without long-term current use of insulin (HCC), Diarrhea, unspecified type, Hypokalemia, Dehydration, 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), Finger infection, Skin candidiasis, Superior vena cava thrombosis (HCC), Essential hypertension, benign, IVC thrombosis (HCC), Heterozygous factor V Leiden mutation (HCC), Malignant neoplasm of head of pancreas (HCC) insulin aspart Inject 2-8 Units 0 11/19/19 Active (NOVOLOG) SQ subcutaneously 3 21 correction scale times a day (Adult)Indications: Osteomyelitis (HCC), Type 2 diabetes mellitus with diabetic peripheral angiopathy without gangrene, without long-term current use of insulin (HCC), Diarrhea, unspecified type, Hypokalemia, Dehydration, 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), Finger infection, Skin candidiasis, Superior vena cava thrombosis (HCC), Essential hypertension, benign, IVC thrombosis (HCC), Heterozygous factor V Leiden mutation (HCC), Malignant neoplasm of head of pancreas (HCC) bismuth Take 30 mL by 0 11/19/19 Active subsalicylate mouth 3 times a 21 (PEPTO-BISMOL) 262 day as needed for mg/15 mL indigestion SUSPIndications: Osteomyelitis (HCC), Type 2 diabetes mellitus with diabetic peripheral angiopathy without gangrene, without long-term current use of insulin (HCC), Diarrhea, unspecified type, Hypokalemia, Dehydration, 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), Finger infection, Skin candidiasis, Superior vena cava thrombosis (HCC), Essential hypertension, benign, IVC thrombosis (HCC), Heterozygous factor V Leiden mutation (HCC), Malignant neoplasm of head of pancreas (HCC) nystatin (NYAMYC) Apply topically 2 0 11/19/19 Active [id number] UNIT/GM times a day 21 powderIndications: Osteomyelitis (HCC), Type 2 diabetes mellitus with diabetic peripheral angiopathy without gangrene, without long-term current use of insulin (HCC), Diarrhea, unspecified type, Hypokalemia, Dehydration, 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), Finger infection, Skin candidiasis, Superior vena cava thrombosis (HCC), Essential hypertension, benign, IVC thrombosis (HCC), Heterozygous factor V Leiden mutation (HCC), Malignant neoplasm of head of pancreas (HCC) senna-docusate Take 1 tablet by 0 11/19/19 Active sodium mouth 2 times a 21 (SENOKOT-S;PERICOLA day as needed for CE) 8.6-50 MG constipation tabletIndications: Osteomyelitis (HCC), Type 2 diabetes mellitus with diabetic peripheral angiopathy without gangrene, without long-term current use of insulin (HCC), Diarrhea, unspecified type, Hypokalemia, Dehydration, 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), Finger infection, Skin candidiasis, Superior vena cava thrombosis (HCC), Essential hypertension, benign, IVC thrombosis (HCC), Heterozygous factor V Leiden mutation (HCC), Malignant neoplasm of head of pancreas (HCC) multivitamin Take 1 tablet by 30 tablet 0 11/20/19 Active therapeutic with mouth 1 time per 21 minerals (THERA-M) day tabletIndications: Osteomyelitis (HCC), Type 2 diabetes mellitus with diabetic peripheral angiopathy without gangrene, without long-term current use of insulin (HCC), Diarrhea, unspecified type, Hypokalemia, Dehydration, 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), Finger infection, Skin candidiasis, Superior vena cava thrombosis (HCC), Essential hypertension, benign, IVC thrombosis (HCC), Heterozygous factor V Leiden mutation (HCC), Malignant neoplasm of head of pancreas (HCC) polyethyl Place 1 drop into 0 11/19/19 Ac tive glycol-propyl both eyes Every 4 21 glycol (SYSTANE) hours as needed 0.4-0.3 % for dry eyes SOLNIndications: Osteomyelitis (HCC), Type 2 diabetes mellitus with diabetic peripheral angiopathy without gangrene, without long-term current use of insulin (HCC), Diarrhea, unspecified type, Hypokalemia, Dehydration, 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), Finger infection, Skin candidiasis, Superior vena cava thrombosis (HCC), Essential hypertension, benign, IVC thrombosis (HCC), Heterozygous factor V Leiden mutation (HCC), Malignant neoplasm of head of pancreas (HCC) vitamin D3, Take 1 tablet (50 0 11/20/19 Active cholecalciferol, 50 mcg) by mouth 1 21 mcg (2000 unit) time per day tabletIndications: Osteomyelitis (HCC), Type 2 diabetes mellitus with diabetic peripheral angiopathy without gangrene, without long-term current use of insulin (HCC), Diarrhea, unspecified type, Hypokalemia, Dehydration, 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), Finger infection, Skin candidiasis, Superior vena cava thrombosis (HCC), Essential hypertension, benign, IVC thrombosis (HCC), Heterozygous factor V Leiden mutation (HCC), Malignant neoplasm of head of pancreas (HCC) acetaminophen Take 1 tablet (500 0 11/19/19 Active (TYLENOL) 500 mg mg) by mouth Every 21 tabletIndications: 4 hours as needed Type 2 diabetes for mild pain or mellitus with fever > (indicate diabetic peripheral temp) (100) angiopathy without gangrene, without long-term current use of insulin (HCC), Diarrhea, unspecified type, Hypokalemia, 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), Skin candidiasis, Superior vena cava thrombosis (HCC), Essential hypertension, benign, IVC thrombosis (HCC), Heterozygous factor V Leiden mutation (HCC), Malignant neoplasm of head of pancreas (HCC), 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, with fat layer exposed (HCC), Hypomagnesemia, Hypophosphatemia, Moderate protein-calorie malnutrition (HCC), Osteomyelitis of finger (HCC), Thrombocytopenia (HCC), [facility] current use of anticoagulant therapy, Thymoma gabapentin Take 2 capsules 270 capsule 4 11/19/19 A ctive (NEURONTIN) 300 mg (600 mg) by mouth 21 capsuleIndications: 2 times a day Type 2 diabetes TAKES 1-3 times mellitus with per day diabetic peripheral angiopathy without gangrene, without long-term current use of insulin (HCC), Diarrhea, unspecified type, Hypokalemia, 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), Skin candidiasis, Superior vena cava thrombosis (HCC), Essential hypertension, benign, IVC thrombosis (HCC), Heterozygous factor V Leiden mutation (HCC), Malignant neoplasm of head of pancreas (HCC), 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, with fat layer exposed (HCC), Hypomagnesemia, Hypophosphatemia, Moderate protein-calorie malnutrition (HCC), Osteomyelitis of finger (HCC), Thrombocytopenia (HCC), [facility] current use of anticoagulant therapy, Thymoma potassium chloride Take 1 tablet (8 90 tablet 3 11/19/19 Active CR (KLOR-CON) 8 mEq mEq) by mouth 3 21 tabletIndications: times a day with Type 2 diabetes meals mellitus with diabetic peripheral angiopathy without gangrene, without long-term current use of insulin (HCC), Diarrhea, unspecified type, Hypokalemia, 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), Skin candidiasis, Superior vena cava thrombosis (HCC), Essential hypertension, benign, IVC thrombosis (HCC), Heterozygous factor V Leiden mutation (HCC), Malignant neoplasm of head of pancreas (HCC), 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, with fat layer exposed (HCC), Hypomagnesemia, Hypophosphatemia, Moderate protein-calorie malnutrition (HCC), Osteomyelitis of finger (HCC), Thrombocytopenia (HCC), [facility] current use of anticoagulant therapy, Thymoma sodium chloride Administer 10 mL 0 11/19/19 Active 0.9% intravenously 2 21 SOLNIndications: times a day and as Type 2 diabetes needed mellitus with diabetic peripheral angiopathy without gangrene, without long-term current use of insulin (HCC), Diarrhea, unspecified type, Hypokalemia, 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), Skin candidiasis, Superior vena cava thrombosis (HCC), Essential hypertension, benign, IVC thrombosis (HCC), Heterozygous factor V Leiden mutation (HCC), Malignant neoplasm of head of pancreas (HCC), 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, with fat layer exposed (HCC), Hypomagnesemia, Hypophosphatemia, Moderate protein-calorie malnutrition (HCC), Osteomyelitis of finger (HCC), Thrombocytopenia (HCC), [facility] current use of anticoagulant therapy, Thymoma sodium chloride Administer 10 mL 0 11/19/19 Active 0.9% prefilled 10 intravenously 2 21 mL syringe 0.9% times a day and as SOLNIndications: needed Type 2 diabetes mellitus with diabetic peripheral angiopathy without gangrene, without long-term current use of insulin (HCC), Diarrhea, unspecified type, Hypokalemia, 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), Skin candidiasis, Superior vena cava thrombosis (HCC), Essential hypertension, benign, IVC thrombosis (HCC), Heterozygous factor V Leiden mutation (HCC), Malignant neoplasm of head of pancreas (HCC), 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, with fat layer exposed (HCC), Hypomagnesemia, Hypophosphatemia, Moderate protein-calorie malnutrition (HCC), Osteomyelitis of finger (HCC), Thrombocytopenia (HCC), 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, Thymoma hEParin 100 Administer 3 mL 0 11/19/19 Ac tive units/mL injection (300 Units) 21 solutionIndications intravenously 2 : Type 2 diabetes times a day and as mellitus with needed diabetic peripheral angiopathy without gangrene, without long-term current use of insulin (HCC), Diarrhea, unspecified type, Hypokalemia, 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), Skin candidiasis, Superior vena cava thrombosis (HCC), Essential hypertension, benign, IVC thrombosis (HCC), Heterozygous factor V Leiden mutation (HCC), Malignant neoplasm of head of pancreas (HCC), 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, with fat layer exposed (HCC), Hypomagnesemia, Hypophosphatemia, Moderate protein-calorie malnutrition (HCC), Osteomyelitis of finger (HCC), Thrombocytopenia (HCC), [facility] current use of anticoagulant therapy, Thymoma octreotide acetate Inject 1 mL (200 0 11/19/19 Active (SANDOSTATIN) 200 mcg) 21 MCG/ML subcutaneously SOLNIndications: Every 8 hours Type 2 diabetes mellitus with diabetic peripheral angiopathy without gangrene, without long-term current use of insulin (HCC), Diarrhea, unspecified type, Hypokalemia, 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), Skin candidiasis, Superior vena cava thrombosis (HCC), Essential hypertension, benign, IVC thrombosis (HCC), Heterozygous factor V Leiden mutation (HCC), Malignant neoplasm of head of pancreas (HCC), 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, with fat layer exposed (HCC), Hypomagnesemia, Hypophosphatemia, Moderate protein-calorie malnutrition (HCC), Osteomyelitis of finger (HCC), Thrombocytopenia (HCC), [facility] current use of anticoagulant therapy, Thymoma gabapentin Take 600 mg by 270 capsule 4 07/06/2011/18/ Di scontinued (NEURONTIN) 300 mg mouth TAKES 1-3 2020 (Reorder) capsule times per day acetaminophen Take 500 mg by 0 11/18/ D iscontinued (TYLENOL) 500 mg mouth Every 4 2020 (Reorder) tablet hours as needed nicotine (NICODERM) Apply 1 patch ( patch 0 09/16/19/ Discontinued 21 mg/24hr mg) to the skin 09 15 2020 ( Stop Taking [id number]: time per day at Discharge) Cigarette nicotine dependence with nicotine-induced disorder capecitabine Take 1 tablet (500 14 tablet 5 09/19/1911/18/ Discontinued (XELODA) 500 MG mg) by mouth 2 2020 (Stop Taking tabletIndications: times a day at Discharge) Malignant neoplasm of head of pancreas (HCC) cephalexin (KEFLEX) Take 500 mg by 0 11/18 / Discontinued 500 mg capsule mouth 3 times a 2020 (Stop Taking day at Dischar ge) documented as of this encounter (statuses as of 11/18/2020) Active Problems Problem Noted Date Superior vena cava thrombosis 11/15/2020 Skin candidiasis 11/05/2020 Thrombocytopenia 10/28/2020 Subacute osteomyelitis of right hand 10/26/2020 Osteomyelitis of finger 10/23/2020 Moderate protein-calorie malnutrition 10/20/2020 Dehydration 10/18/2020 Open wound 10/18/2020 Colon cancer 10/18/2020 Weakness 10/18/2020 Non-small cell cancer of right lung 10/18/2020 Finger infection 10/18/2020 Hypophosphatemia 10/18/2020 Hypomagnesemia 10/14/2020 Malignant neoplasm of head of pancreas 10/07/2020 Adenocarcinoma, lung, right 10/07/2020 Hypokalemia 09/23/2020 Pancreatic cancer 09/05/2020 Cancer Staging: Clinical: Stage IB (cT2, cN0, cM0) - Signed by Gertrude Thomas MD on 09/13/2020 Malignant neoplasm of upper lobe of right lung 021 Cancer Staging: Clinical: Stage IA1 (cT1 a, cN0, cM0) - Signed by Gertrude Thomas MD on 09/13/2020 Lung nodule 08/20/2020 Pancreatic mass 08/20/2020 Thymoma 02/10/2020 Cancer Staging: Clinical: Unsigned Coughing 09/30/2017 Sepsis 08/04/2017 CE (acute kidney injury) 08/04/2017 Diarrhea, unspecified 08/04/2017 NSTEMI (non-ST elevated myocardial infarction) 017 Acute kidney injury 08/04/2017 Cough 03/23/2015 Elevated factor VIII level 06/22/2014 Iron deficiency 06/02/2014 Anemia 06/02/2014 Fatigue 06/02/2014 Encounter for central line care 03/31/2014 Tobacco abuse 11/13/2013 Peripheral vascular disease 11/11/2013 Overview: 2005: Nonhealing right sweet ulcer in the setting of severe PVD. Underwent RCFA to above knee popliteal artery bypass with PTFE (8 mm); Dr. Haider. Ulceration healed well after surgery. 2011: Nonhealing right heel ulcer with occlusion previous graft and occlusion RSFA. Underwent redo right femoral to above knee popliteal bypass with 6 mm ringed Poupart Goretex graft and debridement o f ulcer. As of October,, ulcer has n ot healed. Ischemic heel ulcer 11/11/2013 Overview: May 2012: Abrasion right heel from her wheelchair which developed into infected ulcer. November and April 2013: Hospitalized here for above. September 2013: Hospitalized in [place] f or infected right heel ulcer for 10 day acute hospital stay, then 3 wks swing bed for IV vancomycin. Cultures showed pseudomonas, MRSA, and Grp B beta strep. On ly partial healing. Referred to IR for t his as well as known PVD with markedly abnormal ABIs. 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 while undergoing colon cancer treatment) flipped and unable to access. Port removed; new port placed. October 2009: Port pocket infection (MRSA ); irrigated and then placed on doxycycline and Diflucan. Good closure and healing. November 2009: Developed SVC syndrome with facial swelling. Heparinized and underwent venogram of RUE venous system to the SVC. Found to have stenosis right subclavian, brachiocephalic, and upper IVC wh ich all responded well to 12 mm HEAD PAPER TESTER. Al so noted to have high grade stenosis lower RIJ which responded well to 12 mm HEAD PAPER TESTER. [place] to also have persistent left central venous obstruction. Facial swelling improved. Deep vein thrombosis of left lower extremity 2 Overview: January 2007: Developed DVT during periods of inactivity associated with her multiple abdominal surgeries for cancer. Started on warfarin; no PE. 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 Padron [facility]). Found to have large inflammatory mass at hepatic flexure; pathology showed adenocarcinoma. Underwent right he micolectomy, omentectomy, and colostomy. Developed wound dehiscence 9 days postop; underwent placement of retention sutures. Discharged after total acute stay of 23 days to TCU, then [facility], and then eventually swing bed in [place]. April 2007: Started chemotherapy un tahira the direction of Dr. Thomas (XELOX x8 cycles from April 2007 to October 2007). December 2007: Colostomy takedown with reana stomosis complicated by wound dehiscence and MRSA (Dr. Padrno [facility]). Healed with packing. May 2008: As CEA was elevated and C T showed 2 cm lesion inferior to RL liver, underwent exploratory laparotomy, lysis of adhesions, partial hepatic resection, ventral hernia repair. Pathology show ed metastatic adenocarcinoma. Again had wound dehiscence and MRSA with prolonged healing. Followed by ID. Treated with LT Zyvox. She has followed with Dr. Thomsa; las t CEA April 2013 was 2.1 Essential hypertension, benign Type 2 diabetes mellitus with circulatory disorder Other staphylococcus infection in conditions classifie d elsewhere and of unspecified site Heterozygous factor V Leiden mutation Overview: Pt and daughter report that she has Fact or V Leiden mutation; on warfarin since 2006 at which time she had DVT. Encounter for long-term (current) use of antibiotics documented as of this encounter (statuses as of 11/18/2020) Immunizations Name Administration Dates Next Due FLU VACCINE HIGH DOSE 65YR+(Fluzone) 06/09/2012, 08/06/2011 Pneumococcal Conj PCV13 09/30/2017 Pneumococcal Polysaccharide PPSV23 12/22/2009, 11/26/2006 documented as of this encounter Social History Tobacco Use Types Packs/Day Years Used Date Former Smoker Cigarettes 0.5 50 Quit: 09/17/19 21 Smokeless Tobacco: Never Used Comments: 2-3 cigarettes per day. 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 Is this person blind or does he/she have difficulty No 01/05/2020 seeing even when wearing glasses? Do you have difficulty with walking, balance, climbing Yes 10/19/2020 stairs, or had a fall in the last 3 months? Does the patient have difficulty dressing or bathing? No 08/04/2017 Because of a physical, mental, or emotional condition; No 08/04/2017 does this person have difficulty doing errands alone such as visiting a doctor's office or shopping? Cognitive Status Response Date of Assessment Because of a physical, mental, or emotional condition; No 08/04/2017 does this person have serious difficulty concentrating, remembering, or making decisions? documented as of this encounter Discharge Summaries Not on filedocumented in this encounter Discharge Instructions ArcenioVan Gerardo Mccloud RN - 10/19/2020 Evad dressing placed on 11/14/20. Eating Guide for Diarrhea Management When you have diarrhea, this means that your digestive tract is in distress. Each person reacts a little differently to the stress from radiation, chemotherapy, infection, food sensitivity, and medications. When you have diarrhea food passes too quickly through your bowel and you do not fully absorb or get all the nutritional benefit from foods you have eaten. This may lead to dehydration or weight loss. These guidelines are to help try to control diarrhea. Contact your doctor if your diarrhea is severe, bloody or lasts for more than a few days. Check with your doctor about using anti-diarrhea medications. Fiber Dietary fiber is divided into two categories: soluble fiber which can help slow down or firm up stool consistency and insoluble fiber, which can speed up the stooling or the rate of foods passing through the intestinal tract. Some suggestions are listed below for eating the right kind of fiber (when you have loose stools). ? Eat more soluble fiber foods such as: Apple, fresh, peeled Green beans Applesauce Oat cereals like Cheerios Banana Oatmeal, cooked Barley, cooked Pear, fresh, peeled or canned Carrots, cooked Another source of soluble fiber is found in products such as NutriSource Fiber and Citrucel. This can help slow down how fast food empties from the stomach and slow down how fast it goes through the digestive tract. It also absorbs bile salts, which are irritating to the intestine. It is suggested that you start with a small dose one teaspoon mixed in cup liquid at each meal. The dose can be adjusted up in stages; check the package of the brand you purchase for suggested amount. Page 2 ? Some suggestions for foods high in insoluble fiber to limit or avoid: Avocados Blackberries Blueberries Broccoli Brown rice [place] sprouts Cabbage Cauliflower Coconut [place] Dates Dried fruit Granola Nuts Peanut butter Popcorn Prunes and prune juice Raspberries [place] flour Seeds Soybean fiber Very spicy foods made with silva, chili powder or hot pepper sauce Wheat bran breads like 100% whole wheat bread Wheat bran cereal like All Bran, Raisin Brain Wild Rice *Skins of fruits and vegetables may not be well tolerated. Sometimes raw vegetables or fruits are not as well tolerated as cooked or canned types. Lactose You may develop a temporary intolerance to lactose (the natural sugar found in dairy foods.) This can cause increased cramps, gas and diarrhea. Try reducing the lactose in your diet. ? Start with eating/drinking smaller portions of milk at a time (1/4 - cup at a meal). ? Often yogurts are better tolerated than milk, look at the label to use ones that contain live cultures. ? Aged cheese is low in lactose (example Cheddar or [place]) and is usually well tolerated. ? Try reduced lactose products such as Lactaid 100 or Dairy Ease milk. Lactaid and Dairy Ease also make tablets and drops that can be used. Follow directions on the label. ? Try using soy milk instead of dairy milk. Fats Foods that are high in fat may not be well tolerated. ? Select lean meats and poultry without skin avoid frying ? Avoid deep fried and fried foods ? Avoid creamy sauces ? Avoid eating several foods that are high in fat at the same meal. ? Select low fat milk, cheese and other dairy products as tolerated. Limit use of butter, margarine and salad dressings. Page 3 Caffeine / Fluids ? DO drink plenty of fluids (generally 8-10 glasses per day that do not contain caffeine). ? Drink even if you do not feel thirsty as your thirst mechanism is not always accurate in thesecircumstances. ? Drink small amounts at a time ( cup amounts) throughout the day. ? Avoid caffeine it can be a bowel stimulant. You can use decaffeinated coffee, tea, and soft drinks. ? You may need to dilute orange juice and soft drinks with water or club soda to make them less sweet. ? Sometimes the carbonation in soft drinks can cause more gas you can try leaving the containersopen for 10-15 minutes before drinking to defiz it somewhat. ? You can drink sport drinks such as Gatorade and PowerAde. Other Hints ? Avoid foods, which contain sorbitol and mannitol such as sugar free candy, gum, jelly, apple juice as it has a mild laxative effect. ? Foods and fluids that are very hot or very cold can stimulate the bowel, try to eat/drink foods more at room temperature. ? Foods and beverages that are very sweet (sweet desserts, soft drinks, sweetened teas or coffee) may need to be avoided as they may tend to pass through the stomach quickly and cause diarrhea. ? Try eating smaller amounts of food and liquid throughout the day rather than three full sized meals. Large amounts of food can stimulate bowel movements. ? With diarrhea you lose extra of the minerals, sodium and potassium. You may need to increase your intake of high salt foods (broth, canned soups, tomato juice, pretzels, saltine crackers do not use salt pills) and high potassium foods (orange juice, apricot nectar, banana, yogurt, tomato juice, baked potato [no skin]). ? If diarrhea is severe you can use special electrolyte replacement solutions such as Pedialyte ora recipe for making your own solution is: 1-teaspoon salt 1 6-oz can frozen orange juice concentrate 1-teaspoon baking soda 6 cups water 1-tablespoon corn syrup Mix all ingredients together in pitcher; stir or shake well before using. Keep refrigerated. Sip on this throughout the day. Note: this formulation is for adults only it is too strong for children. Page 4 ? If diarrhea is persistent you can try limiting your diet to only: Banana Cream of Rice Cereal, cooked, with no milk added Decaffeinated tea Eggs, no fat added Lean meat/poultry without added fat Mashed potato, no milk or fat Noodles, cooked, plain Peeled apple Plain bagel White rice White toast Yogurt with live cultures This limited of a diet should only be used for 2-3 days. If diarrhea continues consult your doctor. ? Because of the losses that may occur with diarrhea, a multi-vitamin and mineral supplement is recommended. documented in this encounter Medications at Time of Discharge Medication Sig Dispensed Refills Start Date End Date HYDROmorphone Administer 0.5 mL 0 11/18/2020 (DILAUDID) 0.5 mg/0.5 (0.5 mg) mL SOLN injection intravenously Every solution (conc: 0.5 hour as needed for mg/0.5mL)Indications: moderate pain Osteomyelitis (HCC), Type 2 diabetes mellitus with diabetic peripheral angiopathy without gangrene, without long-term current use of insulin (HCC), Diarrhea, unspecified type, Hypokalemia, Dehydration, 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), Finger infection, Skin candidiasis, Superior vena cava thrombosis (HCC), Essential hypertension, benign, IVC thrombosis (HCC), Heterozygous factor V Leiden mutation (HCC), Malignant neoplasm of head of pancreas (HCC) HYDROmorphone Administer 1 mL (1 0 11/18/2020 (DILAUDID) 1 mg/mL SOLN mg) intravenously injection solution Every hour as needed (conc: 1 for severe pain mg/mL)Indications: Osteomyelitis (HCC), Type 2 diabetes mellitus with diabetic peripheral angiopathy without gangrene, without long-term current use of insulin (HCC), Diarrhea, unspecified type, Hypokalemia, Dehydration, 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), Finger infection, Skin candidiasis, Superior vena cava thrombosis (HCC), Essential hypertension, benign, IVC thrombosis (HCC), Heterozygous factor V Leiden mutation (HCC), Malignant neoplasm of head of pancreas (HCC) calcium carbonate Take 1 tablet (500 90 tablet 0 11/18/2020 (TUMS) 500 MG chewable mg) by mouth 3 times tabletIndications: a day with meals Osteomyelitis (HCC), Type 2 diabetes mellitus with diabetic peripheral angiopathy without gangrene, without long-term current use of insulin (HCC), Diarrhea, unspecified type, Hypokalemia, Dehydration, 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), Finger infection, Skin candidiasis, Superior vena cava thrombosis (HCC), Essential hypertension, benign, IVC thrombosis (HCC), Heterozygous factor V Leiden mutation (HCC), Malignant neoplasm of head of pancreas (HCC) traZODone (DESYREL) 50 Take 1 tablet (50 mg) 0 11/23/2021 mg tabletIndications: by mouth at bedtime Osteomyelitis (HCC), as needed for other Type 2 diabetes (Specify) (insomnia) mellitus with diabetic peripheral angiopathy without gangrene, without long-term current use of insulin (HCC), Diarrhea, unspecified type, Hypokalemia, Dehydration, 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), Finger infection, Skin candidiasis, Superior vena cava thrombosis (HCC), Essential hypertension, benign, IVC thrombosis (HCC), Heterozygous factor V Leiden mutation (HCC), Malignant neoplasm of head of pancreas (HCC) insulin aspart Inject 2-8 Units 0 11/18/2020 (NOVOLOG) SQ correction subcutaneously 3 scale times a day (Adult)Indications: Osteomyelitis (HCC), Type 2 diabetes mellitus with diabetic peripheral angiopathy without gangrene, without long-term current use of insulin (HCC), Diarrhea, unspecified type, Hypokalemia, Dehydration, 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), Finger infection, Skin candidiasis, Superior vena cava thrombosis (HCC), Essential hypertension, benign, IVC thrombosis (HCC), Heterozygous factor V Leiden mutation (HCC), Malignant neoplasm of head of pancreas (HCC) bismuth subsalicylate Take 30 mL by mouth 3 0 (PEPTO-BISMOL) 262 times a day as needed mg/15 mL for indigestion SUSPIndications: Osteomyelitis (HCC), Type 2 diabetes mellitus with diabetic peripheral angiopathy without gangrene, without long-term current use of insulin (HCC), Diarrhea, unspecified type, Hypokalemia, Dehydration, 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), Finger infection, Skin candidiasis, Superior vena cava thrombosis (HCC), Essential hypertension, benign, IVC thrombosis (HCC), Heterozygous factor V Leiden mutation (HCC), Malignant neoplasm of head of pancreas (HCC) nystatin (NYAMYC) Apply topically 2 0 11/18/2020 [id number] UNIT/GM times a day powderIndications: Osteomyelitis (HCC), Type 2 diabetes mellitus with diabetic peripheral angiopathy without gangrene, without long-term current use of insulin (HCC), Diarrhea, unspecified type, Hypokalemia, Dehydration, 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), Finger infection, Skin candidiasis, Superior vena cava thrombosis (HCC), Essential hypertension, benign, IVC thrombosis (HCC), Heterozygous factor V Leiden mutation (HCC), Malignant neoplasm of head of pancreas (HCC) senna-docusate sodium Take 1 tablet by 0 11/19/19 21 (SENOKOT-S;PERICOLACE) mouth 2 times a day 8.6-50 MG as needed for tabletIndications: constipation Osteomyelitis (HCC), Type 2 diabetes mellitus with diabetic peripheral angiopathy without gangrene, without long-term current use of insulin (HCC), Diarrhea, unspecified type, Hypokalemia, Dehydration, 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), Finger infection, Skin candidiasis, Superior vena cava thrombosis (HCC), Essential hypertension, benign, IVC thrombosis (HCC), Heterozygous factor V Leiden mutation (HCC), Malignant neoplasm of head of pancreas (HCC) multivitamin Take 1 tablet by 30 tablet 0 11/19/2020 therapeutic with mouth 1 time per day minerals (THERA-M) tabletIndications: Osteomyelitis (HCC), Type 2 diabetes mellitus with diabetic peripheral angiopathy without gangrene, without long-term current use of insulin (HCC), Diarrhea, unspecified type, Hypokalemia, Dehydration, 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), Finger infection, Skin candidiasis, Superior vena cava thrombosis (HCC), Essential hypertension, benign, IVC thrombosis (HCC), Heterozygous factor V Leiden mutation (HCC), Malignant neoplasm of head of pancreas (HCC) polyethyl glycol-propyl Place 1 drop into 0 11/18 glycol (SYSTANE) both eyes Every 4 0.4-0.3 % hours as needed for SOLNIndications: dry eyes Osteomyelitis (HCC), Type 2 diabetes mellitus with diabetic peripheral angiopathy without gangrene, without long-term current use of insulin (HCC), Diarrhea, unspecified type, Hypokalemia, Dehydration, 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), Finger infection, Skin candidiasis, Superior vena cava thrombosis (HCC), Essential hypertension, benign, IVC thrombosis (HCC), Heterozygous factor V Leiden mutation (HCC), Malignant neoplasm of head of pancreas (HCC) vitamin D3, Take 1 tablet (50 0 11/19/2020 cholecalciferol, 50 mcg mcg) by mouth 1 time (2000 unit) per day tabletIndications: Osteomyelitis (HCC), Type 2 diabetes mellitus with diabetic peripheral angiopathy without gangrene, without long-term current use of insulin (HCC), Diarrhea, unspecified type, Hypokalemia, Dehydration, 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), Finger infection, Skin candidiasis, Superior vena cava thrombosis (HCC), Essential hypertension, benign, IVC thrombosis (HCC), Heterozygous factor V Leiden mutation (HCC), Malignant neoplasm of head of pancreas (HCC) acetaminophen (TYLENOL) Take 1 tablet (500 0 10/25 500 mg mg) by mouth Every 4 tabletIndications: Type hours as needed for 2 diabetes mellitus mild pain or fever > with diabetic (indicate temp) (100) peripheral angiopathy without gangrene, without long-term current use of insulin (HCC), Diarrhea, unspecified type, Hypokalemia, 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), Skin candidiasis, Superior vena cava thrombosis (HCC), Essential hypertension, benign, IVC thrombosis (HCC), Heterozygous factor V Leiden mutation (HCC), Malignant neoplasm of head of pancreas (HCC), 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, with fat layer exposed (HCC), Hypomagnesemia, Hypophosphatemia, Moderate protein-calorie malnutrition (HCC), Osteomyelitis of finger (HCC), Thrombocytopenia (HCC), 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, Thymoma gabapentin (NEURONTIN) Take 2 capsules (600 270 capsule 4 300 mg mg) by mouth 2 times capsuleIndications: a day TAKES 1-3 times Type 2 diabetes per day mellitus with diabetic peripheral angiopathy without gangrene, without long-term current use of insulin (HCC), Diarrhea, unspecified type, Hypokalemia, 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), Skin candidiasis, Superior vena cava thrombosis (HCC), Essential hypertension, benign, IVC thrombosis (HCC), Heterozygous factor V Leiden mutation (HCC), Malignant neoplasm of head of pancreas (HCC), 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, with fat layer exposed (HCC), Hypomagnesemia, Hypophosphatemia, Moderate protein-calorie malnutrition (HCC), Osteomyelitis of finger (HCC), Thrombocytopenia (HCC), 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, Thymoma potassium chloride CR Take 1 tablet (8 mEq) 90 tablet 3 (KLOR-CON) 8 mEq by mouth 3 times a tabletIndications: Type day with meals 2 diabetes mellitus with diabetic peripheral angiopathy without gangrene, without long-term current use of insulin (HCC), Diarrhea, unspecified type, Hypokalemia, 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), Skin candidiasis, Superior vena cava thrombosis (HCC), Essential hypertension, benign, IVC thrombosis (HCC), Heterozygous factor V Leiden mutation (HCC), Malignant neoplasm of head of pancreas (HCC), 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, with fat layer exposed (HCC), Hypomagnesemia, Hypophosphatemia, Moderate protein-calorie malnutrition (HCC), Osteomyelitis of finger (HCC), Thrombocytopenia (HCC), 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, Thymoma sodium chloride 0.9% Administer 10 mL 0 SOLNIndications: Type 2 intravenously 2 times diabetes mellitus with a day and as needed diabetic peripheral angiopathy without gangrene, without long-term current use of insulin (HCC), Diarrhea, unspecified type, Hypokalemia, 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), Skin candidiasis, Superior vena cava thrombosis (HCC), Essential hypertension, benign, IVC thrombosis (HCC), Heterozygous factor V Leiden mutation (HCC), Malignant neoplasm of head of pancreas (HCC), 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, with fat layer exposed (HCC), Hypomagnesemia, Hypophosphatemia, Moderate protein-calorie malnutrition (HCC), Osteomyelitis of finger (HCC), Thrombocytopenia (HCC), 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, Thymoma sodium chloride 0.9% Administer 10 mL 0 prefilled 10 mL syringe intravenously 2 times 0.9% SOLNIndications: a day and as needed Type 2 diabetes mellitus with diabetic peripheral angiopathy without gangrene, without long-term current use of insulin (HCC), Diarrhea, unspecified type, Hypokalemia, 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), Skin candidiasis, Superior vena cava thrombosis (HCC), Essential hypertension, benign, IVC thrombosis (HCC), Heterozygous factor V Leiden mutation (HCC), Malignant neoplasm of head of pancreas (HCC), 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, with fat layer exposed (HCC), Hypomagnesemia, Hypophosphatemia, Moderate protein-calorie malnutrition (HCC), Osteomyelitis of finger (HCC), Thrombocytopenia (HCC), 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, Thymoma hEParin 100 units/mL Administer 3 mL (300 0 11/18 injection Units) intravenously solutionIndications: 2 times a day and as Type 2 diabetes needed mellitus with diabetic peripheral angiopathy without gangrene, without long-term current use of insulin (HCC), Diarrhea, unspecified type, Hypokalemia, 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), Skin candidiasis, Superior vena cava thrombosis (HCC), Essential hypertension, benign, IVC thrombosis (HCC), Heterozygous factor V Leiden mutation (HCC), Malignant neoplasm of head of pancreas (HCC), 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, with fat layer exposed (HCC), Hypomagnesemia, Hypophosphatemia, Moderate protein-calorie malnutrition (HCC), Osteomyelitis of finger (HCC), Thrombocytopenia (HCC), 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, Thymoma octreotide acetate Inject 1 mL (200 mcg) 0 2020 (SANDOSTATIN) 200 subcutaneously Every MCG/ML SOLNIndications: 8 hours Type 2 diabetes mellitus with diabetic peripheral angiopathy without gangrene, without long-term current use of insulin (HCC), Diarrhea, unspecified type, Hypokalemia, 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), Skin candidiasis, Superior vena cava thrombosis (HCC), Essential hypertension, benign, IVC thrombosis (HCC), Heterozygous factor V Leiden mutation (HCC), Malignant neoplasm of head of pancreas (HCC), 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, with fat layer exposed (HCC), Hypomagnesemia, Hypophosphatemia, Moderate protein-calorie malnutrition (HCC), Osteomyelitis of finger (HCC), Thrombocytopenia (HCC), [facility] current use of anticoagulant therapy, Thymoma DAPTOmycin (CUBICIN) 6 Administer 350 mg 0 202012/05/2020 mg/kg = 350 mg in intravenously Every sodium chloride 0.9% 50 24 hours mLIndications: Subacute osteomyelitis of right hand (HCC) ertapenem (INVanz) Administer 1,000 mg 0 10/27/19 21 12/05/2020 1,000 mg in sodium intravenously Every chloride 0.9% 50 24 hours Indications: mLIndications: OUTPATIENT Outpatient ANTIMICROBIAL THERAPY antimicrobial therapy potassium chloride Take 1 tablet (20 90 tablet 3 09/21/2020 (KLOR-CON M20) 20 MEQ mEq) by mouth 2 times CR tabletIndications: a day Hypokalemia diphenoxylate-atropine Take 1 tablet by 40 tablet 0 021 (LOMOTIL) 2.5-0.025 mg mouth 4 times a day tabletIndications: as needed for Diarrhea, unspecified diarrhea type ondansetron (ZOFRAN) 8 Take 1 tablet (8mg) 30 tablet 1 08/27 MG tabletIndications: by mouth, one hour 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 subclavian artery (HCC), Heterozygous factor V Leiden mutation ([facility]) triamcinolone acetonide Apply topically 2 28.5 g 1 07/18 (KENALOG,ARISTOCORT) times a day 0.1 % creamIndications: Eczema, unspecified type glipiZIDE ER (GLUCOTROL Take 1 tablet by 0 2019 XL) 5 mg extended mouth 1 time per day release tablet (24 hr) loperamide (IMODIUM) 2 Take 2 caps after the 20 capsule 0 mg capsuleIndications: first loose stool, Diarrhea, unspecified then 1 cap after each type loose stool, but no more than 8 caps per day. warfarin (COUMADIN) 5 [place] 80 tablet 3 07/16/2017 mg tabletIndications: Anticoagulation History of DVT (deep Pt:Take as directed. vein thrombosis), (Insurance Purposes: Elevated factor VIII 2.5-5 mg daily dose level, Thrombosis of range) Call subclavian artery [phone] if ? (HCC), Heterozygous factor V Leiden mutation ([facility]) phytonadione, vitamin Take 200 mcg by mouth 100 tablet 3 K, 100 MCG TABS tablet 1 time per day while on warfarin to stabilize labile INRs and dietary vitamin K consumption. Misc. Devices (WALKER) WALKER WITH 4 WHEELS WITH HAND BRAKES (NO SEAT ) 0 MISC Use as needed when ambulatin g. Dx: Right hip arthroplasty and prosthesis, weakness and unsteady gait documented as of this encounter Progress Notes Gertrude Thomas MD - 11/17/2020 7:29 PM CDT Hematology/Oncology Daily Progress Note Blair Stafford is a 80yr old female admitted on 10/18/2020. 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 * Plan: Replace the phosphate. Continue antibiotics per ID recommendation. Decrease the size of her potassium pills. Try Systene eye drops for her watery eyes. Estimated Discharge Date: 11/18/20. HPI / History / ROS HPI Mrs. Stafford is an 80-year-old white female patient who has been followed by me over the years for colon cancer. She also has problems with persistent thromboembolic disease. She is on chronic anticoagulation with warfarin. She was diagnosed recently with stage I lung cancer and a stage I cancer of the pancreas. We decided to approach the cancer of the pancreas first with chemoradiation. She started treatment a couple of weeks ago. Her chemotherapy is capecitabine as a radiosensitizer at a very low dose of 500 mg twice a day. I saw the patient on 10/18/2020 for routine followup. She complained of severe pain of the right 2nd finger. Her fingernail fell off and the tip of the finger fell off as well. The wound did not seem to be infected, but she had cellulitis of the right 2nd finger, and this was excruciatingly painful. She did try to take cephalexin that she had at home, but it did not help. In view of that, plus the fact that she had severe diarrhea, plus the fact that she was dehydrated, I did admit her for IV antibiotics and IV hydration. She also has hypokalemia, hypomagnesemia, hypophosphatemia, and these will need to be replaced intravenously since she is not able to tolerate lotsof oral replacement. I decided to treat her finger cellulitis with Rocephin. She received the 1st dose on 10/18/2020. When seen on 10/19/2020, her right 2nd finger had somewhat improved. I did request a hand surgery consultation, but this has not been done yet. She also has a diabetic ulcer on the right lower extremity, which is being taken care of by the wound nurse. Her lab work on 10/19/2020 showed a white count of 6,000, hemoglobin 11.4, platelet count 94,000. Differential count normal. Chemistries: Glucose 203, sodium 133, potassium 3.0, phosphorus 2.2, magnesium 2.0 after replacement. INR 2.0. I gave her more IV potassium and phosphate. She still has quite severe diarrhea despite taking Lomotil. She takes 2 tablets 4 times a day, which is a high dose, but it seems that that is what she needs to control the diarrhea. Once the diarrhea is controlled, I might go back on capecitabine. The patient is anxious to go home and does not want to stay in the hospital any longer than necessary. I told her that we better give her 5 days of IV antibiotics and try to get her finger in a better shape. Otherwise, if we stop the antibiotic therapy too soon, the cellulitis of the right 2nd finger might flare up again. She agreed to stay to complete her IV antibiotics. On 10/20/20 she had an XR of the Rt hand showing: FINDING: Bony irregularity and/or fracture second digit distal phalanx. Some soft tissue injury changes are also present correlate for recent trauma versus infection. On 10/20/20 Mrs Stafford was seen in her hospital room. She continued to improve. Eating better. The Rt 2nd finger was still hurting. She had a mild cough. The RLE ulcer was dressed. She had an JACQUI bandage around the Rt lower leg. She still had severe diarrhea despite the Lomotil. She had 6 BM's today.She did continue with the RT. Her exam was basically unchanged. Her lab work showed a WBC of 5.0 with an ANC of 4.0; Hgb 11.9 g/dL; Plt 104,000. Glucose 157 mg/dL; phosphorus 1.8 mg/dL; mag 1.5 mg/dL. Albumin 2.2 g/dL. Other chemistries were WNL. She still had evidence of protein/caloric malnutrition.The dietitian was consulted. She did receive her RT today. She requested to add Imodium to her Lomotil. I did order it. Awaiting opinion from hand surgery. For now,I continued Rocephin and replaced herelectrolytes IV. 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 He recommended amputation. The Pt declined. She said that she wanted to complete her RT first.ID consult was requested. On 10/21/20 she had a CXR showing: FINDINGS/IMPRESSION: The cardiac silhouette is normal in size. There is calcified atherosclerosis of the thoracic aorta. There is a 1.3 cm nodular opacity within the mid right lung which likely corresponds with the hypermetabolic nodule in the periphery of the right upper lobe on the prior PET/CT from 07/27/2020. No additional pulmonary nodules are identified. No focal airspace consolidation. No pneumothorax or pleural effusion. On 10/21/20 she was seen by Dr Burgos from ID. He did change the antibiotic to a combination of Cefepime/Metronidazole/Vancomycin. He felt that she should have surgery soon. On 10/21/20 I saw Mrs Stafford in her hospital room. She was feeling fairly well. Her diarrhea had improved. But she was not eating much. Her pain was at an acceptable level. Her exam was unchanged. I explained to her that she needed surgery soon. She agreed to have it done. I'll let Dr Casas know. Hope to have her surgery next week and resume her radiosensitizing chemotherapy. RT can continue since it has no effect on the finger.Her electrolytes were replaced IV. Her CXR was reviewed and felt unchanged. She had her Rt distal index finger amputated by Dr Casas on 10/24/20. She tolearted the procedure well. On 10/24/20 Mrs Stafford was seen in her hospital room after the amputation. She had no pain. She was started on Octreotide by Dr Maldonado this week-end. This seemed to have helped some. Her appetite remained good. She did receive her RT. Her exam was unchanged. Her Plt count was 97,000. Otherwise the CBC was unremarkable. Her chemistries were close to Nl. Phosphorus was 2.1 mg/dL; Albumin was 2.1 g/dL. Her INR was 2.4 and was reverted with FFP for the procedure. Continue antibiotics for now and check with ID. Continue daily RT. Resume Capecitabine in a few days. On 10/25/20 Mrs Stafford was seen in her hospital room. She had pain in the amputated finger. Her diarrhea had improved since on Octreotide. Eating well. Tolerating the RT well. Her exam was unchanged except for the amputated finger. Her CBC showed a WBC of 3.8 with an ANC of 2.8; Hgb 11.0 g/dL; Plt 74,000. Glucose 230 mg/dL; sodium 134 mEq/L. Phosphate 1.9 mg/dL; mag 2.0 mg/dL. Other values were Nl. Mag and phosphate were replaced.Antibiotics per ID. Await cultures and pathology. On 10/27/20 Mrs Stafford was seen in her hospital room. She said that on 10/26/20 she was very weak. Shefelt a little better on 10/27/20. She continued to have diarrhea. She continued to eat well. Her exam was unchanged. The amputated finger stump was dressed. The surgeon examined it and was satisfied withthe healing. Her exam was unchanged. Her lab work showed a WBC of 4.6 with an ANC of 3.5; Hgb 11.0 g/dL; Plt 58,000. Glucose 215 mg/dL; chloride 111 mEq/L. Phosphorus 1.3 mg/dL; mag 1.4 mg/dL; albumin 1.9 g/dL. She will need mag and phosphate replacements. In view of the thrombocytopenia, most likely caused by Vancomycin, I was not able to resume the Capecitabine. Continue daily monitoring of her counts and chemistries. On 10/28/20 Mrs Stafford was seen in her hospital room. She complained of extreme fatigue. She was eating well. Her legs remained weak. Her cough has resolved since she quit the nicotine patches. Her diarrhea did improve with the current regimen. She did receive her RT today. On exam, the Rt index finger stump was dressed. Her pain was acceptable. Her lab work showed a WBC of 7.3 with an ANC of 5.8; Hgb 11.5 g/dL; Plt 63,000. Phosphorus was 1.3 mg/dL;mag was 1.3 mg/dL; albumin was 2.0 g/dL. Other values were Nl. I did review Dr Burgos's recommendations for antibiotic therapy. He recommended to continue Cefepime/Vanco/Metronidazole while in the hospital. At discharge,he recommends Ertapenem and Daptomycin. The duration of treatment will depend on the pathology. Dr Burgos will see her out-patient in 1-2 weeks to decide. She may need antibiotics till 12/05/20. She will require weakly lab work. The Pt was not interested in the [place] swing bed. She could not go home due to the cost of the antibiotics. The best might be a TCU in [place] and get the antibiotics out- patient at the . Will discuss with the bottle caser Saturday. Since her Plt count has not recovered yet, I am holding the Capecitabine. Will continue daily labs and daily electrolytes replacement. On 10/31/20 Mrs Stafford was seen in her hospital room. She still had severe diarrhea during the week-end. Her Lomotil was increased with some decrease in the diarrhea. No pain. Her exam was unchanged. Her CBC showed a WBC of 5.9 with an ANC of 4.7; Hgb 10.7 g/dL; Plt 69,000. Glucose 121 mg/dL; [id number] mEq/L. Phosphorus 1.4 mg/dL; mag 1.7 mg/dL; albumin 1.9 g/dL. She received IV Mag and phosphate.As long as she has diarrhea, we need to keep her on IV fluids. If the diarrhea improves,she could goto a TCU and continue RT. If this does not work, she may need to go to [place] in a swing bed. On 11/01/20 Mrs Stafford was seen in her hospital room. She was sitting at the edge of the bed eating.She had a good appetite. No new complaints. The diarrhea was better. She only had 3 BM's by 7 pm. Her exam was unchanged. I did call the pathology lab. They are 1 week behind due to their move. Hope toget the pathology back in 2-3 days. Her lab work remained stable. Her WBC was 5.0 with an ANC of 3.8; Hgb 10.5 g/dL; Plt 72,000. Glucose 196 mg/dL; phosphorus 2.2 mg/dL and mag 1.5 mg/dL;Albumin 1.9 g/dL; LFT's unremarkable. Other chemistries were Nl. She received IV phosphate and mag. She was continued on RT. The Capecitabine continued to be held mainly due to her thrombocytopenia. On 11/02/20 Mrs Stafford was seen in her hospital room. She was feeling cold after coming back from the RT. She had no fever. She had still quite severe diarrhea.C diff was neg. Her exam was unchanged. Her lab work showed a WBC of 4.6; ANC 3.4; Hgb 9.3 g/dL; Plt 81,000. Glucose 196 mg/dL; phosphorus 2.2 mg/dL; mag 1.5 mg/dL; albumin 1.8 g/dL. Dietitian was working on her nutrition. Mag and phosphate were replaced IV. No chemo since her Plt count was still low and she was almost done with RT. Await placement. Pt too complex for a NH and did not want daily transfers from [place] where a swing bed was available.To continue RT as ordered. On 11/03/20 Mrs Stafford was seen in her hospital room. She continued to have diarrhea. She continuedto require electrolytes IV replacement. She had some back pain. Eating well. Her exam was unchanged.Her CBC showed a WBC of 4.1 with an ANC of 3.2; Hgb 9.8 and Plt 69,000. Glucose was 302 mg/dL; sodium 133 mEq/L. Phosphate 2.2 mg/dL; mag 1.4 mg/dL; albumin 1.8 g/dL. Electrolyte IV replacement was ordered. We discussed placement. She did not really want to go to [place]. Nevertheless,I feel that [facility] swing bed would be the best for her in view of her complexity. [place]. To be discussed with the bottle caser. On 11/04/20 the PICC line did not function properly and had to be replaced. This was done by . On 11/04/20 Mrs Stafford was seen in her hospital room. She felt chilly after coming back from and. She had no fever. Still having diarrhea. No other complaints. Her exam was unchanged. Her lab work showed a WBC of 3.7 with an ANC of 2.7; Hgb 9.5 g/dL; Plt 81,000. Glucose 304 mg/dL; sodium 134 mEq/L. Albumin 1.8 g/dL. Other values from the chemistry panel were WNL. I continued her IV fluids and anti-diarrheals. Placement will be a problem since [facility] cannot provide transportation for RT. They are willing to take the Pt when done with RT. On 11/05/20 Mrs Stafford was seen in her hospital room for re-evaluation of her cancers and osteomyelitis. She complained of redness,itchiness of the skin under the breasts and in the lower abd. She felt that it was a yeast infection an asked for Nystatin powder. I agreed with her and prescribed the Nystatin powder.She also was wondering when her stiches will come out Dr Casas said 2 weeks. On exam, the only change was redness under the breasts and in skin folds in the lower abdomen. Her lab work showed a WBC of 3.5 with an ANC of 2.6;Hgb 10.1 g/dL. Plt 81,000. Glucose 208 mg/dL; chloride 113 mEq/L; phosphorus 1.9 mg/dL; mag 1.4 mg/dL and albumin 1.9 g/dL. INR 2.2. She was continued on the same antibiotics. I told her that I would contact Dr Casas for the suture removal. On 11/06/20 Mrs Stafford was seen in her hospital room. She continued to have diarrhea. She had the sutures from her Rt index finger removed by Dr Casas. She complained of severe discomfort when going down for RT. She requested a pain med before her RT. I did prescribe hydromorphone. She was continuedon her current regimen of anti-diarrheals. Her exam was unchanged. The rash under the breasts had improved. She felt some burning under the breasts. I reassured her that the rash was improving. Her labwork showed a WBC of 3.6 with an ANC of 2.6; Hgb 10.0 g/dL; Plt 89,000. Glucose 251 mg/dL; sodium 134 mEq/L. Phosphorus 2.2 mg/dL; mag 1.5 mg/dL. Albumin 1.9 g/dL. INR 2.1. Electrolytes replacement wasordered. On 11/07/20 Mrs Stafford was seen in her hospital room. She continued to complain of diarrhea. Her skin rash was gone. She had Hydromorphone before RT today and did better with no pain. We are waiting the start of lung SBRT. No NH wants to take her before completion of the RT. Her exam was unchanged. The rash under her breasts was gone. No new findings. Her lab work showed a WBC of 3.9 with an ANC of 2.9; Hgb 9.6 g/dL; Plt 82,000. Glucose 180 mg/dL. Mag 1.6 mg/dL; albumin 1.8 g/dL. Her low albumin was probably related to her diarrhea,as well as the electrolytes imbalances. She was continued on her anti-diarrhea regimen. She did complete RT to the pancreas on 11/07/20. Next we need to treat her lung cancer. On 11/08/20 Mrs Stafford was seen in her hospital room. She was sitting in the chair. She remained quite weak, unable to reposition her self. She was eating well. She complained about the Metronidazole but was willing to continue to take it. She still had diarrhea. On exam, no new findings. Her lab work showed a fairly Nl UA with no proteins detected. Her WBC was 2.9 with an ANC of 2.0; Hgb 9.1 g/dL; Plt 87,000. Glucose 154 mg/dL; chloride 113 mEq/L. Phosphorus 2.0 mg/dL; mag 1.7 mg/dL; albumin 1.8 g/dL. INR 2.2. No changes were made. I gave her IV Mag and Phosphorus. Since no NH wanted to take her,she will have to stay hospitalized to be able to receive her antibiotics. On 11/18/20 she will be done with RT and could be transferred to [place] in a swing bed to continue with the antibiotics. She waswilling to stay in till 11/18/20. I plan adjuvant chemotherapy for the pancreas after done with RT and antibiotics. Phosphate and mag were replaced IV. She was continued on IV fluids with K replacement.Triple antibiotics were also continued. On 11/09/20 Mrs Stafford was seen in her hospital room. She was quite lethargic. The Nurse told me that she was fine when she returned from RT. But later on she complained of severe pain and received more pain meds. When I saw her around 7 pm she was sleepy but arouseble. She had no pain. She still had diarrhea. No other complaints. Her exam was otherwise unchanged. Her CBC showed a WBC of 3.1 with an ANC of 2.2; hGB 9.3 g/dL; Plt 79,000. Glucose 166 mg/dL;chloride 112 mEq/L. Phosphate 2.8 mg/dL; mag 1.7 mg/dL; albumin 1.8 g/dL. INR 2.2 She did receive 2 g of IV Mag. No other changes. She was continued on triple antibiotic. The plan remained to continue in-patient management until done with RT then transfer to [facility] in [place]. On 11/10/20 Mrs Stafford was seen in her hospital room. She was about the same. Still had diarrhea. She was able to eat. She was very fatigued and was sleeping a lot. No pain when I saw her around 6 pm.Her exam was unchanged. Her lab work showed a WBC of 3.0 with an ANC of 2.2; Hgb 9.3 g/dL; Plt 87,000. Glucose 175 mg/dL;chloride 114 mEq/L; phosphate 2.3 mg/dL; Albumin 1.8 g/dL. She seemed to be stable. She did not require electrolyte replacement. To continue her antibiotics. She will receive the 2nd fraction of RT to the chest on 11/11/20. To continue her meds for diarrhea. During the week-end she developed pitting edema of both UE and some in the LE. On 11/14/20 Mrs Stafford was seen in her hospital room. Her PICC line was malfunctioning. Dr Kimreplaced it. His note reads: IMPRESSION: 1. 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 2. Successful recanalization and balloon venoplasty of the superior vena cava with improved flow. This was resistant to venoplasty. 3. Successful tunneled Powerline central venous catheter placement with catheter tip positioned atthe cavoatrial junction. 4. Removal of left arm PICC. 5. Superior vena cava was resistant to venoplasty and will be at high risk for restenosis/occlusion. When I saw her late afternoon she still complained of swelling of bot UE. No other discomfort. She was fatigued but had received sedation for the procedure. Her exam was otherwise unchanged. Her lab work showed a WBC of 2.8 with an ANC of 1.9; Hgb 9.3 g/dL; Plt 80,000. Chloride 120 mEq/L; CO2: 18 mEq/L. Phosphorus 1.8 mg/dL;albumin 1.7 g/dL. Other values were WNL. To continue antibiotics. Next RT fraction on 11/16/20. On 11/15/20 Mrs Stafford was seen in her hospital room. She offered no new complaints. She was eatingwell. No major pain. On exam, her extremities edema was improving. Her exam was otherwise unchanged.Her lab work showed a WBC of 2.4 with an ANC of 1.5; Hgb 10.0 g/dL; Plt 76,000. Glucose 265 mg/dL; chloride 118 mEq/L; CO2: 18 mEq/L. Phosphorus 1.9 mg/dL; albumin 1.9 g/dL. She was encouraged to increase her protein intake. She was continued on antibiotics recommended by ID. I did order phosphate replacement IV. On 11/16/20 Mrs Stafford was seen in her hospital room. She was feeling better. The UE edema had improved. She continued to eat well. She did receive her 4th fraction of SBRT on 11/16/20. She tolerates it well. Still having some diarrhea. No other complaints. Her exam confirmed decreased UE edema. No LEedema. He leg ulcer was dressed. Lungs were clear. Her CBC showed a WBC of 2.4 with an ANC of 1.6 (Iattribute her cytopenias to Vancomycin). Hgb 8.8 g/dL; Plt 64,000. Glucose 183 mg/dL; chloride 119 mEq/L; CO2: 18 mEq/L. Mag 1.3 mg/dL; Albumin 1.7 g/dL. INR 2.8. Her mag was replaced IV. She was continued on the same antibiotics. If her ANC drops below 1,000 we may need to change her antibiotics and rescue with Filgrastim. As long as the ANC is>1,000 she would be safe. On 11/17/20 Mrs Stafford was seen in her hospital room. She complained of UE edema. She also complained of watery eyes. She still had diarrhea, mainly after eating. Her exam did show more edema of the UE. No other changes. Her WBC was 2.8 with an ANC of 2.0; Hgb 9.0 g/dL; Plt 60,000. Sodium 139 mEq/L;glucose 123 mg/dL; chloride 118 mEq/L; CO2: 19 mEq/L; phosphorus 2.0 mg/dL; albumin 1.7 g/dL. She requested smaller potassium tablets. I prescribed the slow release 8 mEq tid. She had runny eyes. I prescribed Systene for it. She was still scheduled for SBRT # 5 on 11/18/20 and transfer to [facility] after, in the afternoon. Review of Systems Constitutional: Positive for fatigue. Negative for appetite change, chills, diaphoresis, fever and unexpected weight change. HENT: Positive for hearing loss. Eyes: Negative. Respiratory: Negative. Cardiovascular: Positive for leg swelling. Negative for chest pain and palpitations. Gastrointestinal: Negative. Endocrine: Negative. Genitourinary: Negative. Skin: Positive for wound. Negative for itching and rash. Neurological: Positive for extremity weakness. Hematological: Negative. Psychiatric/Behavioral: Negative. Physical / Results Current Vital Signs Temp: 97.2 F (36.2 C) BP: 131/78 Weight: 57 kg (125 lb 10.6 oz) SpO2: 100 % Resp: 18 Pulse: 87 Current BMI (>50 = increased risk): 23.5 O2 Device: Room Air Pain Ratin Maximum Temperatures (last 24 hours) Temperature Maximum Max Temp 98.4 F (36.9 C) Intake and Output: 11/16 0700 - 11/17 0659 In: 1578 [Oral:480] Out: - Physical Exam Constitutional: General: She is not in acute distress. Appearance: Normal appearance. She is normal weight. She is not ill- appearing, toxic-appearing ordiaphoretic. HENT: Head: Normocephalic. Nose: Nose normal. Mouth/Throat: Mouth: Mucous membranes are moist. Pharynx: Oropharynx is clear. No oropharyngeal exudate. Eyes: General: No scleral icterus. Conjunctiva/sclera: Conjunctivae normal. Pupils: Pupils are equal, round, and reactive to light. Neck: Musculoskeletal: Normal range of motion. Cardiovascular: Rate and Rhythm: Normal rate and regular rhythm. Heart sounds: No murmur. Pulmonary: Effort: Pulmonary effort is normal. Breath sounds: Normal breath sounds. Abdominal: General: Abdomen is flat. Bowel sounds are normal. Palpations: Abdomen is soft. Hernia: A hernia is present. Musculoskeletal: Normal range of motion. General: Swelling and tenderness present. Comments: UE edema. Skin: General: Skin is warm and dry. Coloration: Skin is not jaundiced or pale. Findings: Lesion present. No bruising, erythema or rash. Neurological: General: No focal deficit present. Mental Status: She is alert. Psychiatric: Mood and Affect: Mood normal. Results for RIVERA BLAIRTARI GARCIA ( ) as of 11/17/2020 19:34 Ref. Range 11/17/2020 10:50 WBC Latest Ref Range: 4.0 - 11.0 K/uL 2.8 (L) RBC Latest Ref Range: 3.80 - 5.30 M/uL 2.96 (L) Hemoglobin Latest Ref Range: 11.5 - 15.8 g/dL 9.0 (L) Hematocrit Latest Ref Range: 35.0 - 45.0 % 27.2 (L) MCV Latest Ref Range: 80.0 - 98.0 fL 91.9 MCH Latest Ref Range: 25.5 - 34.0 pg 30.4 MCHC Latest Ref Range: 31.5 - 36.5 g/dL 33.1 RDW-CV Latest Ref Range: 11.5 - 15.5 % 21.9 (H) RDW-SD Latest Ref Range: 35.5 - 50.0 fl 71.8 (H) Platelet Count Latest Ref Range: 140 - 400 K/uL 60 (L) MPV Latest Ref Range: 8.5 - 12.0 fL 12.1 (H) Seg Neut Absolute Latest Ref Range: 1.8 - 8.0 K/uL 2.0 Lymphocytes Absolute Latest Ref Range: 0.8 - 4.1 K/uL 0.2 (L) Monocytes Absolute Latest Ref Range: 0.0 - 1.0 K/uL 0.6 Eosinophils Absolute Latest Ref Range: 0.0 - 0.7 K/uL 0.1 Basophil Absolute Latest Ref Range: 0.0 - 0.2 K/uL 0.0 Immature Granulocyte Absolute Latest Ref Range: 0.00 - 0.06 K/uL 0.02 Neutrophils Percent Latest Units: % 69.3 Neutrophils Abs. (Segs and Bands) Latest Units: /uL 2,000 Lymphocytes Percent Latest Units: % 6.7 Monocytes Percent Latest Units: % 20.8 Immature Granulocyte Percent Latest Units: % 0.7 Eosinophils Percent Latest Units: % 2.1 Basophil Percent Latest Units: % 0.4 Nucleated RBC Latest Units: /100 WBC's 0 Glucose Latest Ref Range: 70 - 100 mg/dL 123 (H) Sodium Latest Ref Range: 135 - 145 meq/L 139 Potassium Latest Ref Range: 3.5 - 5.3 meq/L 4.4 Chloride Latest Ref Range: 99 - 110 meq/L 118 (H) CO2 Latest Ref Range: 20 - 29 meq/L 19 (L) Anion Gap with K Latest Ref Range: 6 - 20 meq/L 6 BUN Latest Ref Range: 6 - 22 mg/dL 10 Creatinine Latest Ref Range: 0.60 - 1.10 mg/dL 0.66 BUN/Creatinine Ratio Latest Ref Range: 10.0 - 25.0 15.2 Calcium Latest Ref Range: 8.5 - 10.5 mg/dL 6.9 (L) Corrected Calcium Latest Ref Range: 8.5 - 10.5 mg/dL 8.7 Phosphorus Latest Ref Range: 2.5 - 4.5 mg/dL 2.0 (L) Magnesium Latest Ref Range: 1.8 - 2.4 mg/dL 2.0 Albumin Latest Ref Range: 3.5 - 5.0 g/dL 1.7 (L) eGFR Latest Ref Range: >=60 mL/min/1.73m2 >90 eGFR Non- Latest Ref Range: >=60 mL/min/1.73m2 86 Protime Latest Ref Range: 12.0 - 14.5 secs 32.4 (H) INR Latest Ref Range: 2.0 - 3.5 3.2 Gertrude Thomas MD - 11/16/2020 7:17 PM CDT Hematology/Oncology Daily Progress Note Blair Stafford is a 80yr old female admitted on 10/18/2020. 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 * Plan: Continue antibiotics per ID recommendation. Last fraction of SBRT on 11/18/20. Transfer to [facility] on 11/18/20. Replace the magnesium IV. Estimated Discharge Date: 11/18/20 HPI / History / ROS HPI Mrs. Stafford is an 80-year-old white female patient who has been followed by me over the years for colon cancer. She also has problems with persistent thromboembolic disease. She is on chronic anticoagulation with warfarin. She was diagnosed recently with stage I lung cancer and a stage I cancer of the pancreas. We decided to approach the cancer of the pancreas first with chemoradiation. She started treatment a couple of weeks ago. Her chemotherapy is capecitabine as a radiosensitizer at a very low dose of 500 mg twice a day. I saw the patient on 10/18/2020 for routine followup. She complained of severe pain of the right 2nd finger. Her fingernail fell off and the tip of the finger fell off as well. The wound did not seem to be infected, but she had cellulitis of the right 2nd finger, and this was excruciatingly painful. She did try to take cephalexin that she had at home, but it did not help. In view of that, plus the fact that she had severe diarrhea, plus the fact that she was dehydrated, I did admit her for IV antibiotics and IV hydration. She also has hypokalemia, hypomagnesemia, hypophosphatemia, and these will need to be replaced intravenously since she is not able to tolerate lotsof oral replacement. I decided to treat her finger cellulitis with Rocephin. She received the 1st dose on 10/18/2020. When seen on 10/19/2020, her right 2nd finger had somewhat improved. I did request a hand surgery consultation, but this has not been done yet. She also has a diabetic ulcer on the right lower extremity, which is being taken care of by the wound nurse. Her lab work on 10/19/2020 showed a white count of 6,000, hemoglobin 11.4, platelet count 94,000. Differential count normal. Chemistries: Glucose 203, sodium 133, potassium 3.0, phosphorus 2.2, magnesium 2.0 after replacement. INR 2.0. I gave her more IV potassium and phosphate. She still has quite severe diarrhea despite taking Lomotil. She takes 2 tablets 4 times a day, which is a high dose, but it seems that that is what she needs to control the diarrhea. Once the diarrhea is controlled, I might go back on capecitabine. The patient is anxious to go home and does not want to stay in the hospital any longer than necessary. I told her that we better give her 5 days of IV antibiotics and try to get her finger in a better shape. Otherwise, if we stop the antibiotic therapy too soon, the cellulitis of the right 2nd finger might flare up again. She agreed to stay to complete her IV antibiotics. On 10/20/20 she had an XR of the Rt hand showing: FINDING: Bony irregularity and/or fracture second digit distal phalanx. Some soft tissue injury changes are also present correlate for recent trauma versus infection. On 10/20/20 Mrs Stafford was seen in her hospital room. She continued to improve. Eating better. The Rt 2nd finger was still hurting. She had a mild cough. The RLE ulcer was dressed. She had an JACQUI bandage around the Rt lower leg. She still had severe diarrhea despite the Lomotil. She had 6 BM's today.She did continue with the RT. Her exam was basically unchanged. Her lab work showed a WBC of 5.0 with an ANC of 4.0; Hgb 11.9 g/dL; Plt 104,000. Glucose 157 mg/dL; phosphorus 1.8 mg/dL; mag 1.5 mg/dL. Albumin 2.2 g/dL. Other chemistries were WNL. She still had evidence of protein/caloric malnutrition.The dietitian was consulted. She did receive her RT today. She requested to add Imodium to her Lomotil. I did order it. Awaiting opinion from hand surgery. For now,I continued Rocephin and replaced herelectrolytes IV. 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 He recommended amputation. The Pt declined. She said that she wanted to complete her RT first.ID consult was requested. On 10/21/20 she had a CXR showing: FINDINGS/IMPRESSION: The cardiac silhouette is normal in size. There is calcified atherosclerosis of the thoracic aorta. There is a 1.3 cm nodular opacity within the mid right lung which likely corresponds with the hypermetabolic nodule in the periphery of the right upper lobe on the prior PET/CT from 07/27/2020. No additional pulmonary nodules are identified. No focal airspace consolidation. No pneumothorax or pleural effusion. On 10/21/20 she was seen by Dr Burgso from ID. He did change the antibiotic to a combination of Cefepime/Metronidazole/Vancomycin. He felt that she should have surgery soon. On 10/21/20 I saw Mrs Stafford in her hospital room. She was feeling fairly well. Her diarrhea had improved. But she was not eating much. Her pain was at an acceptable level. Her exam was unchanged. I explained to her that she needed surgery soon. She agreed to have it done. I'll let Dr Casas know. Hope to have her surgery next week and resume her radiosensitizing chemotherapy. RT can continue since it has no effect on the finger.Her electrolytes were replaced IV. Her CXR was reviewed and felt unchanged. She had her Rt distal index finger amputated by Dr Casas on 10/24/20. She tolearted the procedure well. On 10/24/20 Mrs Stafford was seen in her hospital room after the amputation. She had no pain. She was started on Octreotide by Dr Maldonado this week-end. This seemed to have helped some. Her appetite remained good. She did receive her RT. Her exam was unchanged. Her Plt count was 97,000. Otherwise the CBC was unremarkable. Her chemistries were close to Nl. Phosphorus was 2.1 mg/dL; Albumin was 2.1 g/dL. Her INR was 2.4 and was reverted with FFP for the procedure. Continue antibiotics for now and check with ID. Continue daily RT. Resume Capecitabine in a few days. On 10/25/20 Mrs Stafford was seen in her hospital room. She had pain in the amputated finger. Her diarrhea had improved since on Octreotide. Eating well. Tolerating the RT well. Her exam was unchanged except for the amputated finger. Her CBC showed a WBC of 3.8 with an ANC of 2.8; Hgb 11.0 g/dL; Plt 74,000. Glucose 230 mg/dL; sodium 134 mEq/L. Phosphate 1.9 mg/dL; mag 2.0 mg/dL. Other values were Nl. Mag and phosphate were replaced.Antibiotics per ID. Await cultures and pathology. On 10/27/20 Mrs Stafford was seen in her hospital room. She said that on 10/26/20 she was very weak. Shefelt a little better on 10/27/20. She continued to have diarrhea. She continued to eat well. Her exam was unchanged. The amputated finger stump was dressed. The surgeon examined it and was satisfied withthe healing. Her exam was unchanged. Her lab work showed a WBC of 4.6 with an ANC of 3.5; Hgb 11.0 g/dL; Plt 58,000. Glucose 215 mg/dL; chloride 111 mEq/L. Phosphorus 1.3 mg/dL; mag 1.4 mg/dL; albumin 1.9 g/dL. She will need mag and phosphate replacements. In view of the thrombocytopenia, most likely caused by Vancomycin, I was not able to resume the Capecitabine. Continue daily monitoring of her counts and chemistries. On 10/28/20 Mrs Stafford was seen in her hospital room. She complained of extreme fatigue. She was eating well. Her legs remained weak. Her cough has resolved since she quit the nicotine patches. Her diarrhea did improve with the current regimen. She did receive her RT today. On exam, the Rt index finger stump was dressed. Her pain was acceptable. Her lab work showed a WBC of 7.3 with an ANC of 5.8; Hgb 11.5 g/dL; Plt 63,000. Phosphorus was 1.3 mg/dL;mag was 1.3 mg/dL; albumin was 2.0 g/dL. Other values were Nl. I did review Dr Burgos's recommendations for antibiotic therapy. He recommended to continue Cefepime/Vanco/Metronidazole while in the hospital. At discharge,he recommends Ertapenem and Daptomycin. The duration of treatment will depend on the pathology. Dr Burgos will see her out-patient in 1-2 weeks to decide. She may need antibiotics till 12/05/20. She will require weakly lab work. The Pt was not interested in the [facility] bed. She could not go home due to the cost of the antibiotics. The best might be a TCU in [place] and get the antibiotics out- patient at the . Will discuss with the bottle caser Saturday. Since her Plt count has not recovered yet, I am holding the Capecitabine. Will continue daily labs and daily electrolytes replacement. On 10/31/20 Mrs Stafford was seen in her hospital room. She still had severe diarrhea during the week-end. Her Lomotil was increased with some decrease in the diarrhea. No pain. Her exam was unchanged. Her CBC showed a WBC of 5.9 with an ANC of 4.7; Hgb 10.7 g/dL; Plt 69,000. Glucose 121 mg/dL; [id number] mEq/L. Phosphorus 1.4 mg/dL; mag 1.7 mg/dL; albumin 1.9 g/dL. She received IV Mag and phosphate.As long as she has diarrhea, we need to keep her on IV fluids. If the diarrhea improves,she could goto a TCU and continue RT. If this does not work, she may need to go to [place] in a swing bed. On 11/01/20 Mrs Stafford was seen in her hospital room. She was sitting at the edge of the bed eating.She had a good appetite. No new complaints. The diarrhea was better. She only had 3 BM's by 7 pm. Her exam was unchanged. I did call the pathology lab. They are 1 week behind due to their move. Hope toget the pathology back in 2-3 days. Her lab work remained stable. Her WBC was 5.0 with an ANC of 3.8; Hgb 10.5 g/dL; Plt 72,000. Glucose 196 mg/dL; phosphorus 2.2 mg/dL and mag 1.5 mg/dL;Albumin 1.9 g/dL; LFT's unremarkable. Other chemistries were Nl. She received IV phosphate and mag. She was continued on RT. The Capecitabine continued to be held mainly due to her thrombocytopenia. On 11/02/20 Mrs Stafford was seen in her hospital room. She was feeling cold after coming back from the RT. She had no fever. She had still quite severe diarrhea.C diff was neg. Her exam was unchanged. Her lab work showed a WBC of 4.6; ANC 3.4; Hgb 9.3 g/dL; Plt 81,000. Glucose 196 mg/dL; phosphorus 2.2 mg/dL; mag 1.5 mg/dL; albumin 1.8 g/dL. Dietitian was working on her nutrition. Mag and phosphate were replaced IV. No chemo since her Plt count was still low and she was almost done with RT. Await placement. Pt too complex for a NH and did not want daily transfers from [place] where a swing bed was available.To continue RT as ordered. On 11/03/20 Mrs Stafford was seen in her hospital room. She continued to have diarrhea. She continuedto require electrolytes IV replacement. She had some back pain. Eating well. Her exam was unchanged.Her CBC showed a WBC of 4.1 with an ANC of 3.2; Hgb 9.8 and Plt 69,000. Glucose was 302 mg/dL; sodium 133 mEq/L. Phosphate 2.2 mg/dL; mag 1.4 mg/dL; albumin 1.8 g/dL. Electrolyte IV replacement was ordered. We discussed placement. She did not really want to go to [place]. Nevertheless,I feel that [facility] swing bed would be the best for her in view of her complexity. [place]. To be discussed with the bottle caser. On 11/04/20 the PICC line did not function properly and had to be replaced. This was done by . On 11/04/20 Mrs Stafford was seen in her hospital room. She felt chilly after coming back from and. She had no fever. Still having diarrhea. No other complaints. Her exam was unchanged. Her lab work showed a WBC of 3.7 with an ANC of 2.7; Hgb 9.5 g/dL; Plt 81,000. Glucose 304 mg/dL; sodium 134 mEq/L. Albumin 1.8 g/dL. Other values from the chemistry panel were WNL. I continued her IV fluids and anti-diarrheals. Placement will be a problem since [facility] cannot provide transportation for RT. They are willing to take the Pt when done with RT. On 11/05/20 Mrs Stafford was seen in her hospital room for re-evaluation of her cancers and osteomyelitis. She complained of redness,itchiness of the skin under the breasts and in the lower abd. She felt that it was a yeast infection an asked for Nystatin powder. I agreed with her and prescribed the Nystatin powder.She also was wondering when her stiches will come out Dr Casas said 2 weeks. On exam, the only change was redness under the breasts and in skin folds in the lower abdomen. Her lab work showed a WBC of 3.5 with an ANC of 2.6;Hgb 10.1 g/dL. Plt 81,000. Glucose 208 mg/dL; chloride 113 mEq/L; phosphorus 1.9 mg/dL; mag 1.4 mg/dL and albumin 1.9 g/dL. INR 2.2. She was continued on the same antibiotics. I told her that I would contact Dr Casas for the suture removal. On 11/06/20 Mrs Stafford was seen in her hospital room. She continued to have diarrhea. She had the sutures from her Rt index finger removed by Dr Casas. She complained of severe discomfort when going down for RT. She requested a pain med before her RT. I did prescribe hydromorphone. She was continuedon her current regimen of anti-diarrheals. Her exam was unchanged. The rash under the breasts had improved. She felt some burning under the breasts. I reassured her that the rash was improving. Her labwork showed a WBC of 3.6 with an ANC of 2.6; Hgb 10.0 g/dL; Plt 89,000. Glucose 251 mg/dL; sodium 134 mEq/L. Phosphorus 2.2 mg/dL; mag 1.5 mg/dL. Albumin 1.9 g/dL. INR 2.1. Electrolytes replacement was ordered. On 11/07/20 Mrs Stafford was seen in her hospital room. She continued to complain of diarrhea. Her skin rash was gone. She had Hydromorphone before RT today and did better with no pain. We are waiting the start of lung SBRT. No NH wants to take her before completion of the RT. Her exam was unchanged. The rash under her breasts was gone. No new findings. Her lab work showed a WBC of 3.9 with an ANC of 2.9; Hgb 9.6 g/dL; Plt 82,000. Glucose 180 mg/dL. Mag 1.6 mg/dL; albumin 1.8 g/dL. Her low albumin was probably related to her diarrhea,as well as the electrolytes imbalances. She was continued on her anti-diarrhea regimen. She did complete RT to the pancreas on 11/07/20. Next we need to treat her lung cancer. On 11/08/20 Mrs Stafford was seen in her hospital room. She was sitting in the chair. She remained quite weak, unable to reposition her self. She was eating well. She complained about the Metronidazole but was willing to continue to take it. She still had diarrhea. On exam, no new findings. Her lab work showed a fairly Nl UA with no proteins detected. Her WBC was 2.9 with an ANC of 2.0; Hgb 9.1 g/dL; Plt 87,000. Glucose 154 mg/dL; chloride 113 mEq/L. Phosphorus 2.0 mg/dL; mag 1.7 mg/dL; albumin 1.8 g/dL. INR 2.2. No changes were made. I gave her IV Mag and Phosphorus. Since no [place] wanted to take her,she will have to stay hospitalized to be able to receive her antibiotics. On 11/18/20 she will be done with RT and could be transferred to [place] in a swing bed to continue with the antibiotics. She waswilling to stay in till 11/18/20. I plan adjuvant chemotherapy for the pancreas after done with RT and antibiotics. Phosphate and mag were replaced IV. She was continued on IV fluids with K replacement.Triple antibiotics were also continued. On 11/09/20 Mrs Stafford was seen in her hospital room. She was quite lethargic. The Nurse told me that she was fine when she returned from RT. But later on she complained of severe pain and received more pain meds. When I saw her around 7 pm she was sleepy but arouseble. She had no pain. She still had diarrhea. No other complaints. Her exam was otherwise unchanged. Her CBC showed a WBC of 3.1 with an ANC of 2.2; hGB 9.3 g/dL; Plt 79,000. Glucose 166 mg/dL;chloride 112 mEq/L. Phosphate 2.8 mg/dL; mag 1.7 mg/dL; albumin 1.8 g/dL. INR 2.2 She did receive 2 g of IV Mag. No other changes. She was continued on triple antibiotic. The plan remained to continue in-patient management until done with RT then transfer to [facility] in [place]. On 11/10/20 Mrs Stafford was seen in her hospital room. She was about the same. Still had diarrhea. She was able to eat. She was very fatigued and was sleeping a lot. No pain when I saw her around 6 pm.Her exam was unchanged. Her lab work showed a WBC of 3.0 with an ANC of 2.2; Hgb 9.3 g/dL; Plt 87,000. Glucose 175 mg/dL;chloride 114 mEq/L; phosphate 2.3 mg/dL; Albumin 1.8 g/dL. She seemed to be stable. She did not require electrolyte replacement. To continue her antibiotics. She will receive the 2nd fraction of RT to the chest on 11/11/20. To continue her meds for diarrhea. During the week-end she developed pitting edema of both UE and some in the LE. On 11/14/20 Mrs Stafford was seen in her hospital room. Her PICC line was malfunctioning. Dr Kimreplaced it. His note reads: IMPRESSION: 1. 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 2. Successful recanalization and balloon venoplasty of the superior vena cava with improved flow. This was resistant to venoplasty. 3. Successful tunneled Powerline central venous catheter placement with catheter tip positioned atthe cavoatrial junction. 4. Removal of left arm PICC. 5. Superior vena cava was resistant to venoplasty and will be at high risk for restenosis/occlusion. When I saw her late afternoon she still complained of swelling of bot UE. No other discomfort. She was fatigued but had received sedation for the procedure. Her exam was otherwise unchanged. Her lab work showed a WBC of 2.8 with an ANC of 1.9; Hgb 9.3 g/dL; Plt 80,000. Chloride 120 mEq/L; CO2: 18 mEq/L. Phosphorus 1.8 mg/dL;albumin 1.7 g/dL. Other values were WNL. To continue antibiotics. Next RT fraction on 11/16/20. On 11/15/20 Mrs Stafford was seen in her hospital room. She offered no new complaints. She was eatingwell. No major pain. On exam, her extremities edema was improving. Her exam was otherwise unchanged.Her lab work showed a WBC of 2.4 with an ANC of 1.5; Hgb 10.0 g/dL; Plt 76,000. Glucose 265 mg/dL; chloride 118 mEq/L; CO2: 18 mEq/L. Phosphorus 1.9 mg/dL; albumin 1.9 g/dL. She was encouraged to increase her protein intake. She was continued on antibiotics recommended by ID. I did order phosphate replacement IV. On 11/16/20 Mrs Stafford was seen in her hospital room. She was feeling better. The UE edema had improved. She continued to eat well. She did receive her 4th fraction of SBRT on 11/16/20. She tolerates it well. Still having some diarrhea. No other complaints. Her exam confirmed decreased UE edema. No LEedema. He leg ulcer was dressed. Lungs were clear. Her CBC showed a WBC of 2.4 with an ANC of 1.6 (Iattribute her cytopenias to Vancomycin). Hgb 8.8 g/dL; Plt 64,000. Glucose 183 mg/dL; chloride 119 mEq/L; CO2: 18 mEq/L. Mag 1.3 mg/dL; Albumin 1.7 g/dL. INR 2.8. Her mag was replaced IV. She was continued on the same antibiotics. If her ANC drops below 1,000 we may need to change her antibiotics and rescue with Filgrastim. As long as the ANC is>1,000 she would be safe. Review of Systems Constitutional: Positive for fatigue. Negative for appetite change, chills, diaphoresis, fever and unexpected weight change. HENT: Positive for hearing loss. Eyes: Negative. Respiratory: Negative. Cardiovascular: Negative. Gastrointestinal: Positive for diarrhea. Negative for abdominal pain, nausea and vomiting. Endocrine: Negative. Genitourinary: Negative. Musculoskeletal: Positive for gait problem. Skin: Positive for itching, rash and wound. Neurological: Positive for extremity weakness and gait problem. Hematological: Negative. Psychiatric/Behavioral: Negative. Physical / Results Current Vital Signs Temp: 97.3 F (36.3 C) BP: 97/59 Weight: 57 kg (125 lb 10.6 oz) SpO2: 97 % Resp: 16 Pulse: 74 Current BMI (>50 = increased risk): 23.5 O2 Device: Room Air Pain Ratin Maximum Temperatures (last 24 hours) Temperature Maximum Max Temp 98.1 F (36.7 C) Intake and Output: 11/15 0700 - 11/16 0659 In: 1633 [Oral:360] Out: 500 [Urine:500] Physical Exam Constitutional: General: She is not in acute distress. Appearance: Normal appearance. She is normal weight. She is not ill- appearing, toxic-appearing ordiaphoretic. HENT: Head: Normocephalic. Nose: Nose normal. Mouth/Throat: Mouth: Mucous membranes are moist. Pharynx: Oropharynx is clear. No oropharyngeal exudate. Eyes: General: No scleral icterus. Conjunctiva/sclera: Conjunctivae normal. Pupils: Pupils are equal, round, and reactive to light. Neck: Musculoskeletal: Normal range of motion and neck supple. Cardiovascular: Rate and Rhythm: Normal rate and regular rhythm. Heart sounds: No murmur. Pulmonary: Effort: Pulmonary effort is normal. Breath sounds: Normal breath sounds. Abdominal: General: Abdomen is flat. Palpations: Abdomen is soft. Hernia: A hernia is present. Musculoskeletal: Normal range of motion. General: No swelling. Right lower leg: No edema. Left lower leg: No edema. Comments: The arms edema has improved. Skin: General: Skin is warm and dry. Coloration: Skin is not jaundiced. Findings: Lesion present. No erythema. Neurological: General: No focal deficit present. Mental Status: She is alert. Psychiatric: Mood and Affect: Mood normal. Results for BLAIR STAFFORD ( ) as of 11/16/2020 19:22 Ref. Range 11/16/2020 06:47 WBC Latest Ref Range: 4.0 - 11.0 K/uL 2.4 (L) RBC Latest Ref Range: 3.80 - 5.30 M/uL 3.00 (L) Hemoglobin Latest Ref Range: 11.5 - 15.8 g/dL 8.8 (L) Hematocrit Latest Ref Range: 35.0 - 45.0 % 27.7 (L) MCV Latest Ref Range: 80.0 - 98.0 fL 92.3 MCH Latest Ref Range: 25.5 - 34.0 pg 29.3 MCHC Latest Ref Range: 31.5 - 36.5 g/dL 31.8 RDW-CV Latest Ref Range: 11.5 - 15.5 % 21.8 (H) RDW-SD Latest Ref Range: 35.5 - 50.0 fl 72.2 (H) Platelet Count Latest Ref Range: 140 - 400 K/uL 64 (L) MPV Latest Ref Range: 8.5 - 12.0 fL 12.3 (H) Seg Neut Absolute Latest Ref Range: 1.8 - 8.0 K/uL 1.6 (L) Lymphocytes Absolute Latest Ref Range: 0.8 - 4.1 K/uL 0.5 (L) Monocytes Absolute Latest Ref Range: 0.0 - 1.0 K/uL 0.3 Eosinophils Absolute Latest Ref Range: 0.0 - 0.7 K/uL 0.0 Basophil Absolute Latest Ref Range: 0.0 - 0.2 K/uL 0.0 Immature Granulocyte Absolute Latest Ref Range: 0.00 - 0.06 K/uL 0.03 Neutrophils Percent Latest Units: % 65.7 Neutrophils Abs. (Segs and Bands) Latest Units: /uL 1,600 Lymphocytes Percent Latest Units: % 19.5 Monocytes Percent Latest Units: % 11.4 Immature Granulocyte Percent Latest Units: % 1.3 Eosinophils Percent Latest Units: % 1.7 Basophil Percent Latest Units: % 0.4 Nucleated RBC Latest Units: /100 WBC's 0 Glucose Latest Ref Range: 70 - 100 mg/dL 183 (H) Sodium Latest Ref Range: 135 - 145 meq/L 141 Potassium Latest Ref Range: 3.5 - 5.3 meq/L 3.8 Chloride Latest Ref Range: 99 - 110 meq/L 119 (H) CO2 Latest Ref Range: 20 - 29 meq/L 18 (L) Anion Gap with K Latest Ref Range: 6 - 20 meq/L 8 BUN Latest Ref Range: 6 - 22 mg/dL 11 Creatinine Latest Ref Range: 0.60 - 1.10 mg/dL 0.70 BUN/Creatinine Ratio Latest Ref Range: 10.0 - 25.0 15.7 Calcium Latest Ref Range: 8.5 - 10.5 mg/dL 6.9 (L) Corrected Calcium Latest Ref Range: 8.5 - 10.5 mg/dL 8.7 Phosphorus Latest Ref Range: 2.5 - 4.5 mg/dL 4.0 Magnesium Latest Ref Range: 1.8 - 2.4 mg/dL 1.3 (L) Albumin Latest Ref Range: 3.5 - 5.0 g/dL 1.7 (L) eGFR Latest Ref Range: >=60 mL/min/1.73m2 >90 eGFR Non- Latest Ref Range: >=60 mL/min/1.73m2 80 Protime Latest Ref Range: 12.0 - 14.5 secs 29.0 (H) INR Latest Ref Range: 2.0 - 3.5 2.8 Charla Marshall [facility] - 11/16/2020 12:47 PM CDT Ms. Stafford continues on Vancomycin per pharmacy protocol for cellulitis/osetomyelitis. The patient is on day 27 of receiving Vancomycin and current dose is (dose/interval):750mg q24h. Labs: WBC Date/Time Value Ref Range Status 11/16/2020 06:47 AM 2.4 (L) 4.0 - 11.0 K/uL Final 11/15/2020 05:46 AM 2.4 (L) 4.0 - 11.0 K/uL Final 11/14/2020 10:49 AM 2.8 (L) 4.0 - 11.0 K/uL Final 09/29/2020 4.6 Final 07/01/2020 03:10 PM 5.8 4.0 - 10.2 K/uL Final 09/30/2019 5.20 4 - 11 Final 04/04/2018 03:11 PM 7.0 K/uL Lab Results Component Value Date CREATSERUM 0.70 11/16/2020 CREATSERUM 0.77 11/15/2020 CREATSERUM 0.66 11/14/2020 Vancomycin Trough Date/Time Value Ref Range Status 11/16/2020 12:11 PM 18.3 10.0 - 20.0 ug/mL Final Vancomycin Random Date/Time Value Ref Range Status 11/02/2020 01:50 AM 14.5 ug/mL Final Cultures: Lab Results Component Value Date CULTGROWTH No anaerobic growth at 5 days 10/24/2020 CULTGROWTH No growth 10/24/2020 Max Temperature: Temp (24hrs), Av.5 F (36.4 C), Min:97.1 F (36.2 C), Max:98.1 F (36.7 C) Estimated CrCl: CrCl cannot be calculated (Unknown ideal weight.). ml/min Intake/Output: Intake/Output Summary (Last 24 hours) at 11/16/2020 1247 Last data filed at 11/15/2020 2221 Gross per 24 hour Intake 1633 ml Output Net 1633 ml Other Active Antimicrobials: Antibiotics (From admission, onward) Start Stop Route Frequency Ordered 11/06/20 1030 vancomycin (VANCOCIN) 750 mg in sodium chloride 0.9% 150 mL -- IV Every twenty four hours 11/05/20 1248 11/02/20 0930 vancomycin in dextrose 200 mL IV piggyback (premix) 1,000 mg Status: Discontinued 11/05 1248 IV Every twenty four hours 11/02/20 0837 11/01/20 0100 vancomycin in dextrose 200 mL IV piggyback (premix) 1,000 mg 11/01 0231 IV One time 11/01/20 0008 10/30/20 2000 vancomycin in dextrose 200 mL IV piggyback (premix) 1,000 mg 10/30 2103 IV One time 10/30/20 1011 10/29/20 0800 vancomycin in dextrose 200 mL IV piggyback (premix) 1,000 mg 10/29 1053 IV One time 10/29/20 0720 10/27/20 1945 vancomycin in dextrose 200 mL IV piggyback (premix) 1,000 mg 10/27 2057 IV One time 10/27/20 1840 10/26/20 0732 vancomycin therapy reminder Status: Discontinued 11/02 08 [facility] [place] 10/26/20 0732 10/26/20 0000 cefepime (MAXIPIME) 2000 mg/20 mL in sterile water IV syringe -- IV Every twelve hours 10/25/20 1338 10/21/20 1700 metroNIDAZOLE (FLAGYL) tablet 500 mg -- PO Three times a day 10/21/20 1550 10/21/20 1700 vancomycin in dextrose 200 mL IV piggyback (premix) 1,000 mg Status: Discontinued 10/26 0732 IV Every twelve hours 10/21/20 1602 10/21/20 1630 cefepime (MAXIPIME) 2000 mg/20 mL in sterile water IV syringe Status: Discontinued 10/25 1338 IV Every eight hours 10/21/20 1550 10/18/20 1700 cefTRIAXone (ROCEPHIN) 1000 mg/10 mL IV syringe in sterile water Status: Discontinued 10/21 1550 IV Every twenty four hours 10/18/20 1547 Assessment/Plan: The trough level is within the desired goal of 15-20 mg/L. Vancomycin will be continued at current dose/interval. Pharmacy will continue to monitor per the pharmacokinetic service policy. Charla Staton RPh Gertrude Thomas MD - 11/15/2020 8:30 PM CDT Hematology/Oncology Daily Progress Note Blair Stafford is a 80yr old female admitted on 10/18/2020. 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 * Plan: Continue antibiotics. Replace phosphorus IV. SBRT # 3 on 11/16/20. Estimated Discharge Date: 11/18/20 HPI / History / ROS HPI Mrs. Stafford is an 80-year-old white female patient who has been followed by me over the years for colon cancer. She also has problems with persistent thromboembolic disease. She is on chronic anticoagulation with warfarin. She was diagnosed recently with stage I lung cancer and a stage I cancer of the pancreas. We decided to approach the cancer of the pancreas first with chemoradiation. She started treatment a couple of weeks ago. Her chemotherapy is capecitabine as a radiosensitizer at a very low dose of 500 mg twice a day. I saw the patient on 10/18/2020 for routine followup. She complained of severe pain of the right 2nd finger. Her fingernail fell off and the tip of the finger fell off as well. The wound did not seem to be infected, but she had cellulitis of the right 2nd finger, and this was excruciatingly painful. She did try to take cephalexin that she had at home, but it did not help. In view of that, plus the fact that she had severe diarrhea, plus the fact that she was dehydrated, I did admit her for IV antibiotics and IV hydration. She also has hypokalemia, hypomagnesemia, hypophosphatemia, and these will need to be replaced intravenously since she is not able to tolerate lotsof oral replacement. I decided to treat her finger cellulitis with Rocephin. She received the 1st dose on 10/18/2020. When seen on 10/19/2020, her right 2nd finger had somewhat improved. I did request a hand surgery consultation, but this has not been done yet. She also has a diabetic ulcer on the right lower extremity, which is being taken care of by the wound nurse. Her lab work on 10/19/2020 showed a white count of 6,000, hemoglobin 11.4, platelet count 94,000. Differential count normal. Chemistries: Glucose 203, sodium 133, potassium 3.0, phosphorus 2.2, magnesium 2.0 after replacement. INR 2.0. I gave her more IV potassium and phosphate. She still has quite severe diarrhea despite taking Lomotil. She takes 2 tablets 4 times a day, which is a high dose, but it seems that that is what she needs to control the diarrhea. Once the diarrhea is controlled, I might go back on capecitabine. The patient is anxious to go home and does not want to stay in the hospital any longer than necessary. I told her that we better give her 5 days of IV antibiotics and try to get her finger in a better shape. Otherwise, if we stop the antibiotic therapy too soon, the cellulitis of the right 2nd finger might flare up again. She agreed to stay to complete her IV antibiotics. On 10/20/20 she had an XR of the Rt hand showing: FINDING: Bony irregularity and/or fracture second digit distal phalanx. Some soft tissue injury changes are also present correlate for recent trauma versus infection. On 10/20/20 Mrs Stafford was seen in her hospital room. She continued to improve. Eating better. The Rt 2nd finger was still hurting. She had a mild cough. The RLE ulcer was dressed. She had an JACQUI bandage around the Rt lower leg. She still had severe diarrhea despite the Lomotil. She had 6 BM's today.She did continue with the RT. Her exam was basically unchanged. Her lab work showed a WBC of 5.0 with an ANC of 4.0; Hgb 11.9 g/dL; Plt 104,000. Glucose 157 mg/dL; phosphorus 1.8 mg/dL; mag 1.5 mg/dL. Albumin 2.2 g/dL. Other chemistries were WNL. She still had evidence of protein/caloric malnutrition.The dietitian was consulted. She did receive her RT today. She requested to add Imodium to her Lomotil. I did order it. Awaiting opinion from hand surgery. For now,I continued Rocephin and replaced herelectrolytes IV. 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 He recommended amputation. The Pt declined. She said that she wanted to complete her RT first.ID consult was requested. On 10/21/20 she had a CXR showing: FINDINGS/IMPRESSION: The cardiac silhouette is normal in size. There is calcified atherosclerosis of the thoracic aorta. There is a 1.3 cm nodular opacity within the mid right lung which likely corresponds with the hypermetabolic nodule in the periphery of the right upper lobe on the prior PET/CT from 07/27/2020. No additional pulmonary nodules are identified. No focal airspace consolidation. No pneumothorax or pleural effusion. On 10/21/20 she was seen by Dr Burgos from ID. He did change the antibiotic to a combination of Cefepime/Metronidazole/Vancomycin. He felt that she should have surgery soon. On 10/21/20 I saw Mrs Stafford in her hospital room. She was feeling fairly well. Her diarrhea had improved. But she was not eating much. Her pain was at an acceptable level. Her exam was unchanged. I explained to her that she needed surgery soon. She agreed to have it done. I'll let Dr Casas know. Hope to have her surgery next week and resume her radiosensitizing chemotherapy. RT can continue since it has no effect on the finger.Her electrolytes were replaced IV. Her CXR was reviewed and felt unchanged. She had her Rt distal index finger amputated by Dr Casas on 10/24/20. She tolearted the procedure well. On 10/24/20 Mrs Stafford was seen in her hospital room after the amputation. She had no pain. She was started on Octreotide by Dr Maldonado this week-end. This seemed to have helped some. Her appetite remained good. She did receive her RT. Her exam was unchanged. Her Plt count was 97,000. Otherwise the CBC was unremarkable. Her chemistries were close to Nl. Phosphorus was 2.1 mg/dL; Albumin was 2.1 g/dL. Her INR was 2.4 and was reverted with FFP for the procedure. Continue antibiotics for now and check with ID. Continue daily RT. Resume Capecitabine in a few days. On 10/25/20 Mrs Stafford was seen in her hospital room. She had pain in the amputated finger. Her diarrhea had improved since on Octreotide. Eating well. Tolerating the RT well. Her exam was unchanged except for the amputated finger. Her CBC showed a WBC of 3.8 with an ANC of 2.8; Hgb 11.0 g/dL; Plt 74,000. Glucose 230 mg/dL; sodium 134 mEq/L. Phosphate 1.9 mg/dL; mag 2.0 mg/dL. Other values were Nl. Mag and phosphate were replaced.Antibiotics per ID. Await cultures and pathology. On 10/27/20 Mrs Stafford was seen in her hospital room. She said that on 10/26/20 she was very weak. Shefelt a little better on 10/27/20. She continued to have diarrhea. She continued to eat well. Her exam was unchanged. The amputated finger stump was dressed. The surgeon examined it and was satisfied withthe healing. Her exam was unchanged. Her lab work showed a WBC of 4.6 with an ANC of 3.5; Hgb 11.0 g/dL; Plt 58,000. Glucose 215 mg/dL; chloride 111 mEq/L. Phosphorus 1.3 mg/dL; mag 1.4 mg/dL; albumin 1.9 g/dL. She will need mag and phosphate replacements. In view of the thrombocytopenia, most likely caused by Vancomycin, I was not able to resume the Capecitabine. Continue daily monitoring of her counts and chemistries. On 10/28/20 Mrs Stafford was seen in her hospital room. She complained of extreme fatigue. She was eating well. Her legs remained weak. Her cough has resolved since she quit the nicotine patches. Her diarrhea did improve with the current regimen. She did receive her RT today. On exam, the Rt index finger stump was dressed. Her pain was acceptable. Her lab work showed a WBC of 7.3 with an ANC of 5.8; Hgb 11.5 g/dL; Plt 63,000. Phosphorus was 1.3 mg/dL;mag was 1.3 mg/dL; albumin was 2.0 g/dL. Other values were Nl. I did review Dr Burgos's recommendations for antibiotic therapy. He recommended to continue Cefepime/Vanco/Metronidazole while in the hospital. At discharge,he recommends Ertapenem and Daptomycin. The duration of treatment will depend on the pathology. Dr Burgos will see her out-patient in 1-2 weeks to decide. She may need antibiotics till 12/05/20. She will require weakly lab work. The Pt was not interested in the [place] swing bed. She could not go home due to the cost of the antibiotics. The best might be a TCU in [place] and get the antibiotics out- patient at the . Will discuss with the bottle caser Saturday. Since her Plt count has not recovered yet, I am holding the Capecitabine. Will continue daily labs and daily electrolytes replacement. On 10/31/20 Mrs Stafford was seen in her hospital room. She still had severe diarrhea during the week-end. Her Lomotil was increased with some decrease in the diarrhea. No pain. Her exam was unchanged. Her CBC showed a WBC of 5.9 with an ANC of 4.7; Hgb 10.7 g/dL; Plt 69,000. Glucose 121 mg/dL; mEq/L. Phosphorus 1.4 mg/dL; mag 1.7 mg/dL; albumin 1.9 g/dL. She received IV Mag and phosphate.As long as she has diarrhea, we need to keep her on IV fluids. If the diarrhea improves,she could goto a TCU and continue RT. If this does not work, she may need to go to [place] in a swing bed. On 11/01/20 Mrs Stafford was seen in her hospital room. She was sitting at the edge of the bed eating.She had a good appetite. No new complaints. The diarrhea was better. She only had 3 BM's by 7 pm. Her exam was unchanged. I did call the pathology lab. They are 1 week behind due to their move. Hope toget the pathology back in 2-3 days. Her lab work remained stable. Her WBC was 5.0 with an ANC of 3.8; Hgb 10.5 g/dL; Plt 72,000. Glucose 196 mg/dL; phosphorus 2.2 mg/dL and mag 1.5 mg/dL;Albumin 1.9 g/dL; LFT's unremarkable. Other chemistries were Nl. She received IV phosphate and mag. She was continued on RT. The Capecitabine continued to be held mainly due to her thrombocytopenia. On 11/02/20 Mrs Stafford was seen in her hospital room. She was feeling cold after coming back from the RT. She had no fever. She had still quite severe diarrhea.C diff was neg. Her exam was unchanged. Her lab work showed a WBC of 4.6; ANC 3.4; Hgb 9.3 g/dL; Plt 81,000. Glucose 196 mg/dL; phosphorus 2.2 mg/dL; mag 1.5 mg/dL; albumin 1.8 g/dL. Dietitian was working on her nutrition. Mag and phosphate were replaced IV. No chemo since her Plt count was still low and she was almost done with RT. Await placement. Pt too complex for a NH and did not want daily transfers from [place] where a swing bed was available.To continue RT as ordered. On 11/03/20 Mrs Stafford was seen in her hospital room. She continued to have diarrhea. She continuedto require electrolytes IV replacement. She had some back pain. Eating well. Her exam was unchanged.Her CBC showed a WBC of 4.1 with an ANC of 3.2; Hgb 9.8 and Plt 69,000. Glucose was 302 mg/dL; sodium 133 mEq/L. Phosphate 2.2 mg/dL; mag 1.4 mg/dL; albumin 1.8 g/dL. Electrolyte IV replacement was ordered. We discussed placement. She did not really want to go to [place]. Nevertheless,I feel that [facility] swing bed would be the best for her in view of her complexity. [place]. To be discussed with the bottle caser. On 11/04/20 the PICC line did not function properly and had to be replaced. This was done by IR. On 11/04/20 Mrs Stafford was seen in her hospital room. She felt chilly after coming back from andRT. She had no fever. Still having diarrhea. No other complaints. Her exam was unchanged. Her lab work showed a WBC of 3.7 with an ANC of 2.7; Hgb 9.5 g/dL; Plt 81,000. Glucose 304 mg/dL; sodium 134 mEq/L. Albumin 1.8 g/dL. Other values from the chemistry panel were WNL. I continued her IV fluids and anti-diarrheals. Placement will be a problem since [facility] cannot provide transportation for RT. They are willing to take the Pt when done with RT. On 11/05/20 Mrs Stafford was seen in her hospital room for re-evaluation of her cancers and osteomyelitis. She complained of redness,itchiness of the skin under the breasts and in the lower abd. She felt that it was a yeast infection an asked for Nystatin powder. I agreed with her and prescribed the Nystatin powder.She also was wondering when her stiches will come out Dr Casas said 2 weeks. On exam, the only change was redness under the breasts and in skin folds in the lower abdomen. Her lab work showed a WBC of 3.5 with an ANC of 2.6;Hgb 10.1 g/dL. Plt 81,000. Glucose 208 mg/dL; chloride 113 mEq/L; phosphorus 1.9 mg/dL; mag 1.4 mg/dL and albumin 1.9 g/dL. INR 2.2. She was continued on the same antibiotics. I told her that I would contact Dr Casas for the suture removal. On 11/06/20 Mrs Stafford was seen in her hospital room. She continued to have diarrhea. She had the sutures from her Rt index finger removed by Dr Casas. She complained of severe discomfort when going down for RT. She requested a pain med before her RT. I did prescribe hydromorphone. She was continuedon her current regimen of anti-diarrheals. Her exam was unchanged. The rash under the breasts had improved. She felt some burning under the breasts. I reassured her that the rash was improving. Her labwork showed a WBC of 3.6 with an ANC of 2.6; Hgb 10.0 g/dL; Plt 89,000. Glucose 251 mg/dL; sodium 134 mEq/L. Phosphorus 2.2 mg/dL; mag 1.5 mg/dL. Albumin 1.9 g/dL. INR 2.1. Electrolytes replacement was ordered. On 11/07/20 Mrs Stafford was seen in her hospital room. She continued to complain of diarrhea. Her skin rash was gone. She had Hydromorphone before RT today and did better with no pain. We are waiting the start of lung SBRT. No NH wants to take her before completion of the RT. Her exam was unchanged. The rash under her breasts was gone. No new findings. Her lab work showed a WBC of 3.9 with an ANC of 2.9; Hgb 9.6 g/dL; Plt 82,000. Glucose 180 mg/dL. Mag 1.6 mg/dL; albumin 1.8 g/dL. Her low albumin was probably related to her diarrhea,as well as the electrolytes imbalances. She was continued on her anti-diarrhea regimen. She did complete RT to the pancreas on 11/07/20. Next we need to treat her lung cancer. On 11/08/20 Mrs Stafford was seen in her hospital room. She was sitting in the chair. She remained quite weak, unable to reposition her self. She was eating well. She complained about the Metronidazole but was willing to continue to take it. She still had diarrhea. On exam, no new findings. Her lab work showed a fairly Nl UA with no proteins detected. Her WBC was 2.9 with an ANC of 2.0; Hgb 9.1 g/dL; Plt 87,000. Glucose 154 mg/dL; chloride 113 mEq/L. Phosphorus 2.0 mg/dL; mag 1.7 mg/dL; albumin 1.8 g/dL. INR 2.2. No changes were made. I gave her IV Mag and Phosphorus. Since no NH wanted to take her,she will have to stay hospitalized to be able to receive her antibiotics. On 11/18/20 she will be done with RT and could be transferred to [place] in a swing bed to continue with the antibiotics. She waswilling to stay in till 11/18/20. I plan adjuvant chemotherapy for the pancreas after done with RT and antibiotics. Phosphate and mag were replaced IV. She was continued on IV fluids with K replacement.Triple antibiotics were also continued. On 11/09/20 Mrs Stafford was seen in her hospital room. She was quite lethargic. The Nurse told me that she was fine when she returned from RT. But later on she complained of severe pain and received more pain meds. When I saw her around 7 pm she was sleepy but arouseble. She had no pain. She still had diarrhea. No other complaints. Her exam was otherwise unchanged. Her CBC showed a WBC of 3.1 with an ANC of 2.2; hGB 9.3 g/dL; Plt 79,000. Glucose 166 mg/dL;chloride 112 mEq/L. Phosphate 2.8 mg/dL; mag 1.7 mg/dL; albumin 1.8 g/dL. INR 2.2 She did receive 2 g of IV Mag. No other changes. She was continued on triple antibiotic. The plan remained to continue in-patient management until done with RT then transfer to [facility] in [place]. On 11/10/20 Mrs Stafford was seen in her hospital room. She was about the same. Still had diarrhea. She was able to eat. She was very fatigued and was sleeping a lot. No pain when I saw her around 6 pm.Her exam was unchanged. Her lab work showed a WBC of 3.0 with an ANC of 2.2; Hgb 9.3 g/dL; Plt 87,000. Glucose 175 mg/dL;chloride 114 mEq/L; phosphate 2.3 mg/dL; Albumin 1.8 g/dL. She seemed to be stable. She did not require electrolyte replacement. To continue her antibiotics. She will receive the 2nd fraction of RT to the chest on 11/11/20. To continue her meds for diarrhea. During the week-end she developed pitting edema of both UE and some in the LE. On 11/14/20 Mrs Stafford was seen in her hospital room. Her PICC line was malfunctioning. Dr Kimreplaced it. His note reads: IMPRESSION: 1. 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 2. Successful recanalization and balloon venoplasty of the superior vena cava with improved flow. This was resistant to venoplasty. 3. Successful tunneled Powerline central venous catheter placement with catheter tip positioned atthe cavoatrial junction. 4. Removal of left arm PICC. 5. Superior vena cava was resistant to venoplasty and will be at high risk for restenosis/occlusion. When I saw her late afternoon she still complained of swelling of bot UE. No other discomfort. She was fatigued but had received sedation for the procedure. Her exam was otherwise unchanged. Her lab work showed a WBC of 2.8 with an ANC of 1.9; Hgb 9.3 g/dL; Plt 80,000. Chloride 120 mEq/L; CO2: 18 mEq/L. Phosphorus 1.8 mg/dL;albumin 1.7 g/dL. Other values were WNL. To continue antibiotics. Next RT fraction on 11/16/20. On 11/15/20 Mrs Stafford was seen in her hospital room. She offered no new complaints. She was eatingwell. No major pain. On exam, her extremities edema was improving. Her exam was otherwise unchanged.Her lab work showed a WBC of 2.4 with an ANC of 1.5; Hgb 10.0 g/dL; Plt 76,000. Glucose 265 mg/dL; chloride 118 mEq/L; CO2: 18 mEq/L. Phosphorus 1.9 mg/dL; albumin 1.9 g/dL. She was encouraged to increase her protein intake. She was continued on antibiotics recommended by ID. I did order phosphate replacement IV. Review of Systems Constitutional: Positive for fatigue. Negative for appetite change, chills, diaphoresis, fever and unexpected weight change. HENT: Positive for hearing loss. Eyes: Negative. Respiratory: Negative. Cardiovascular: Positive for leg swelling. Negative for chest pain and palpitations. Her arms are still a bit swollen. Gastrointestinal: Negative. Endocrine: Negative. Genitourinary: Negative. Skin: Positive for wound. Negative for itching and rash. Neurological: Positive for extremity weakness. Hematological: Negative. Psychiatric/Behavioral: Negative. Physical / Results Current Vital Signs Temp: 97.3 F (36.3 C) BP: 118/62 Weight: 58.1 kg (128 lb 1.4 oz) SpO2: 100 % Resp: 16 Pulse: 69 Current BMI (>50 = increased risk): 23.5 O2 Device: Room Air Pain Ratin Maximum Temperatures (last 24 hours) Temperature Maximum Max Temp 97.3 F (36.3 C) Intake and Output: 11/14 0700 - 11/15 0659 In: 2228 [Oral:560] Out: 600 [Urine:600] Physical Exam Constitutional: General: She is not in acute distress. Appearance: Normal appearance. She is normal weight. She is not ill- appearing, toxic-appearing ordiaphoretic. HENT: Head: Normocephalic. Nose: Nose normal. Mouth/Throat: Mouth: Mucous membranes are moist. Pharynx: Oropharynx is clear. No oropharyngeal exudate. Eyes: General: No scleral icterus. Conjunctiva/sclera: Conjunctivae normal. Pupils: Pupils are equal, round, and reactive to light. Neck: Musculoskeletal: Normal range of motion. Cardiovascular: Rate and Rhythm: Normal rate and regular rhythm. Heart sounds: No murmur. Pulmonary: Effort: Pulmonary effort is normal. Breath sounds: Normal breath sounds. No wheezing or rhonchi. Abdominal: General: Abdomen is flat. Bowel sounds are normal. Palpations: Abdomen is soft. Hernia: A hernia is present. Musculoskeletal: Normal range of motion. General: Swelling present. Right lower leg: Edema present. Left lower leg: Edema present. Comments: UE edema. The distal phalanx of the Rt 2nd finger had been amputated. Skin: General: Skin is warm and dry. Findings: Lesion present. No bruising, erythema or rash. Neurological: General: No focal deficit present. Mental Status: She is alert. Psychiatric: Mood and Affect: Mood normal. Results for BLAIR STAFFORD ( ) as of 11/15/2020 20:34 Ref. Range 11/15/2020 05:46 WBC Latest Ref Range: 4.0 - 11.0 K/uL 2.4 (L) RBC Latest Ref Range: 3.80 - 5.30 M/uL 3.33 (L) Hemoglobin Latest Ref Range: 11.5 - 15.8 g/dL 10.0 (L) Hematocrit Latest Ref Range: 35.0 - 45.0 % 30.9 (L) MCV Latest Ref Range: 80.0 - 98.0 fL 92.8 MCH Latest Ref Range: 25.5 - 34.0 pg 30.0 MCHC Latest Ref Range: 31.5 - 36.5 g/dL 32.4 RDW-CV Latest Ref Range: 11.5 - 15.5 % 21.6 (H) RDW-SD Latest Ref Range: 35.5 - 50.0 fl 72.1 (H) Platelet Count Latest Ref Range: 140 - 400 K/uL 76 (L) MPV Latest Ref Range: 8.5 - 12.0 fL 13.2 (H) Seg Neut Absolute Latest Ref Range: 1.8 - 8.0 K/uL 1.5 (L) Lymphocytes Absolute Latest Ref Range: 0.8 - 4.1 K/uL 0.4 (L) Monocytes Absolute Latest Ref Range: 0.0 - 1.0 K/uL 0.4 Eosinophils Absolute Latest Ref Range: 0.0 - 0.7 K/uL 0.1 Basophil Absolute Latest Ref Range: 0.0 - 0.2 K/uL 0.0 Immature Granulocyte Absolute Latest Ref Range: 0.00 - 0.06 K/uL 0.02 Neutrophils Percent Latest Units: % 64.8 Neutrophils Abs. (Segs and Bands) Latest Units: /uL 1,500 Lymphocytes Percent Latest Units: % 16.4 Monocytes Percent Latest Units: % 15.5 Immature Granulocyte Percent Latest Units: % 0.8 Eosinophils Percent Latest Units: % 2.1 Basophil Percent Latest Units: % 0.4 Nucleated RBC Latest Units: /100 WBC's 0 Glucose Latest Ref Range: 70 - 100 mg/dL 265 (H) Sodium Latest Ref Range: 135 - 145 meq/L 139 Potassium Latest Ref Range: 3.5 - 5.3 meq/L 4.2 Chloride Latest Ref Range: 99 - 110 meq/L 118 (H) CO2 Latest Ref Range: 20 - 29 meq/L 18 (L) Anion Gap with K Latest Ref Range: 6 - 20 meq/L 7 BUN Latest Ref Range: 6 - 22 mg/dL 12 Creatinine Latest Ref Range: 0.60 - 1.10 mg/dL 0.77 BUN/Creatinine Ratio Latest Ref Range: 10.0 - 25.0 15.6 Calcium Latest Ref Range: 8.5 - 10.5 mg/dL 7.4 (L) Corrected Calcium Latest Ref Range: 8.5 - 10.5 mg/dL 9.1 Phosphorus Latest Ref Range: 2.5 - 4.5 mg/dL 1.9 (L) Magnesium Latest Ref Range: 1.8 - 2.4 mg/dL 1.8 Albumin Latest Ref Range: 3.5 - 5.0 g/dL 1.9 (L) eGFR Latest Ref Range: >=60 mL/min/1.73m2 87 eGFR Non- Latest Ref Range: >=60 mL/min/1.73m2 72 Protime Latest Ref Range: 12.0 - 14.5 secs 24.9 (H) INR Latest Ref Range: 2.0 - 3.5 2.3 Gertrude Thomas MD - 11/14/2020 8:23 PM CDT Hematology/Oncology Daily Progress Note Blair Stafford is a 80yr old female admitted on 10/18/2020. 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 * Plan: Continue antibiotics till 12/05/20. Replace the PICC line. SBRT # 3. HPI / History / ROS HPI Mrs. Stafford is an 80-year-old white female patient who has been followed by me over the years for colon cancer. She also has problems with persistent thromboembolic disease. She is on chronic anticoagulation with warfarin. She was diagnosed recently with stage I lung cancer and a stage I cancer of the pancreas. We decided to approach the cancer of the pancreas first with chemoradiation. She started treatment a couple of weeks ago. Her chemotherapy is capecitabine as a radiosensitizer at a very low dose of 500 mg twice a day. I saw the patient on 10/18/2020 for routine followup. She complained of severe pain of the right 2nd finger. Her fingernail fell off and the tip of the finger fell off as well. The wound did not seem to be infected, but she had cellulitis of the right 2nd finger, and this was excruciatingly painful. She did try to take cephalexin that she had at home, but it did not help. In view of that, plus the fact that she had severe diarrhea, plus the fact that she was dehydrated, I did admit her for IV antibiotics and IV hydration. She also has hypokalemia, hypomagnesemia, hypophosphatemia, and these will need to be replaced intravenously since she is not able to tolerate lotsof oral replacement. I decided to treat her finger cellulitis with Rocephin. She received the 1st dose on 10/18/2020. When seen on 10/19/2020, her right 2nd finger had somewhat improved. I did request a hand surgery consultation, but this has not been done yet. She also has a diabetic ulcer on the right lower extremity, which is being taken care of by the wound nurse. Her lab work on 10/19/2020 showed a white count of 6,000, hemoglobin 11.4, platelet count 94,000. Differential count normal. Chemistries: Glucose 203, sodium 133, potassium 3.0, phosphorus 2.2, magnesium 2.0 after replacement. INR 2.0. I gave her more IV potassium and phosphate. She still has quite severe diarrhea despite taking Lomotil. She takes 2 tablets 4 times a day, which is a high dose, but it seems that that is what she needs to control the diarrhea. Once the diarrhea is controlled, I might go back on capecitabine. The patient is anxious to go home and does not want to stay in the hospital any longer than necessary. I told her that we better give her 5 days of IV antibiotics and try to get her finger in a better shape. Otherwise, if we stop the antibiotic therapy too soon, the cellulitis of the right 2nd finger might flare up again. She agreed to stay to complete her IV antibiotics. On 10/20/20 she had an XR of the Rt hand showing: FINDING: Bony irregularity and/or fracture second digit distal phalanx. Some soft tissue injury changes are also present correlate for recent trauma versus infection. On 10/20/20 Mrs Stafford was seen in her hospital room. She continued to improve. Eating better. The Rt 2nd finger was still hurting. She had a mild cough. The RLE ulcer was dressed. She had an JACQUI bandage around the Rt lower leg. She still had severe diarrhea despite the Lomotil. She had 6 BM's today.She did continue with the RT. Her exam was basically unchanged. Her lab work showed a WBC of 5.0 with an ANC of 4.0; Hgb 11.9 g/dL; Plt 104,000. Glucose 157 mg/dL; phosphorus 1.8 mg/dL; mag 1.5 mg/dL. Albumin 2.2 g/dL. Other chemistries were WNL. She still had evidence of protein/caloric malnutrition.The dietitian was consulted. She did receive her RT today. She requested to add Imodium to her Lomotil. I did order it. Awaiting opinion from hand surgery. For now,I continued Rocephin and replaced herelectrolytes IV. 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 He recommended amputation. The Pt declined. She said that she wanted to complete her RT first.ID consult was requested. On 10/21/20 she had a CXR showing: FINDINGS/IMPRESSION: The cardiac silhouette is normal in size. There is calcified atherosclerosis of the thoracic aorta. There is a 1.3 cm nodular opacity within the mid right lung which likely corresponds with the hypermetabolic nodule in the periphery of the right upper lobe on the prior PET/CT from 07/27/2020. No additional pulmonary nodules are identified. No focal airspace consolidation. No pneumothorax or pleural effusion. On 10/21/20 she was seen by Dr Burgos from ID. He did change the antibiotic to a combination of Cefepime/Metronidazole/Vancomycin. He felt that she should have surgery soon. On 10/21/20 I saw Mrs Stafford in her hospital room. She was feeling fairly well. Her diarrhea had improved. But she was not eating much. Her pain was at an acceptable level. Her exam was unchanged. I explained to her that she needed surgery soon. She agreed to have it done. I'll let Dr Casas know. Hope to have her surgery next week and resume her radiosensitizing chemotherapy. RT can continue since it has no effect on the finger.Her electrolytes were replaced IV. Her CXR was reviewed and felt unchanged. She had her Rt distal index finger amputated by Dr Casas on 10/24/20. She tolearted the procedure well. On 10/24/20 Mrs Stafford was seen in her hospital room after the amputation. She had no pain. She was started on Octreotide by Dr Maldonado this week-end. This seemed to have helped some. Her appetite remained good. She did receive her RT. Her exam was unchanged. Her Plt count was 97,000. Otherwise the CBC was unremarkable. Her chemistries were close to Nl. Phosphorus was 2.1 mg/dL; Albumin was 2.1 g/dL. Her INR was 2.4 and was reverted with FFP for the procedure. Continue antibiotics for now and check with ID. Continue daily RT. Resume Capecitabine in a few days. On 10/25/20 Mrs Stafford was seen in her hospital room. She had pain in the amputated finger. Her diarrhea had improved since on Octreotide. Eating well. Tolerating the RT well. Her exam was unchanged except for the amputated finger. Her CBC showed a WBC of 3.8 with an ANC of 2.8; Hgb 11.0 g/dL; Plt 74,000. Glucose 230 mg/dL; sodium 134 mEq/L. Phosphate 1.9 mg/dL; mag 2.0 mg/dL. Other values were Nl. Mag and phosphate were replaced.Antibiotics per ID. Await cultures and pathology. On 10/27/20 Mrs Stafford was seen in her hospital room. She said that on 10/26/20 she was very weak. Shefelt a little better on 10/27/20. She continued to have diarrhea. She continued to eat well. Her exam was unchanged. The amputated finger stump was dressed. The surgeon examined it and was satisfied withthe healing. Her exam was unchanged. Her lab work showed a WBC of 4.6 with an ANC of 3.5; Hgb 11.0 g/dL; Plt 58,000. Glucose 215 mg/dL; chloride 111 mEq/L. Phosphorus 1.3 mg/dL; mag 1.4 mg/dL; albumin 1.9 g/dL. She will need mag and phosphate replacements. In view of the thrombocytopenia, most likely caused by Vancomycin, I was not able to resume the Capecitabine. Continue daily monitoring of her counts and chemistries. On 10/28/20 Mrs Stafford was seen in her hospital room. She complained of extreme fatigue. She was eating well. Her legs remained weak. Her cough has resolved since she quit the nicotine patches. Her diarrhea did improve with the current regimen. She did receive her RT today. On exam, the Rt index finger stump was dressed. Her pain was acceptable. Her lab work showed a WBC of 7.3 with an ANC of 5.8; Hgb 11.5 g/dL; Plt 63,000. Phosphorus was 1.3 mg/dL;mag was 1.3 mg/dL; albumin was 2.0 g/dL. Other values were Nl. I did review Dr Burgos's recommendations for antibiotic therapy. He recommended to continue Cefepime/Vanco/Metronidazole while in the hospital. At discharge,he recommends Ertapenem and Daptomycin. The duration of treatment will depend on the pathology. Dr Burgos will see her out-patient in 1-2 weeks to decide. She may need antibiotics till 12/05/20. She will require weakly lab work. The Pt was not interested in the [place] swing bed. She could not go home due to the cost of the antibiotics. The best might be a TCU in [place] and get the antibiotics out- patient at the . Will discuss with the bottle caser Saturday. Since her Plt count has not recovered yet, I am holding the Capecitabine. Will continue daily labs and daily electrolytes replacement. On 10/31/20 Mrs Stafford was seen in her hospital room. She still had severe diarrhea during the week-end. Her Lomotil was increased with some decrease in the diarrhea. No pain. Her exam was unchanged. Her CBC showed a WBC of 5.9 with an ANC of 4.7; Hgb 10.7 g/dL; Plt 69,000. Glucose 121 mg/dL; [id number] mEq/L. Phosphorus 1.4 mg/dL; mag 1.7 mg/dL; albumin 1.9 g/dL. She received IV Mag and phosphate.As long as she has diarrhea, we need to keep her on IV fluids. If the diarrhea improves,she could goto a TCU and continue RT. If this does not work, she may need to go to [place] in a swing bed. On 11/01/20 Mrs Stafford was seen in her hospital room. She was sitting at the edge of the bed eating.She had a good appetite. No new complaints. The diarrhea was better. She only had 3 BM's by 7 pm. Her exam was unchanged. I did call the pathology lab. They are 1 week behind due to their move. Hope toget the pathology back in 2-3 days. Her lab work remained stable. Her WBC was 5.0 with an ANC of 3.8; Hgb 10.5 g/dL; Plt 72,000. Glucose 196 mg/dL; phosphorus 2.2 mg/dL and mag 1.5 mg/dL;Albumin 1.9 g/dL; LFT's unremarkable. Other chemistries were Nl. She received IV phosphate and mag. She was continued on RT. The Capecitabine continued to be held mainly due to her thrombocytopenia. On 11/02/20 Mrs Stafford was seen in her hospital room. She was feeling cold after coming back from the RT. She had no fever. She had still quite severe diarrhea.C diff was neg. Her exam was unchanged. Her lab work showed a WBC of 4.6; ANC 3.4; Hgb 9.3 g/dL; Plt 81,000. Glucose 196 mg/dL; phosphorus 2.2 mg/dL; mag 1.5 mg/dL; albumin 1.8 g/dL. Dietitian was working on her nutrition. Mag and phosphate were replaced IV. No chemo since her Plt count was still low and she was almost done with RT. Await placement. Pt too complex for a NH and did not want daily transfers from [place] where a swing bed was available.To continue RT as ordered. On 11/03/20 Mrs Stafford was seen in her hospital room. She continued to have diarrhea. She continuedto require electrolytes IV replacement. She had some back pain. Eating well. Her exam was unchanged.Her CBC showed a WBC of 4.1 with an ANC of 3.2; Hgb 9.8 and Plt 69,000. Glucose was 302 mg/dL; sodium 133 mEq/L. Phosphate 2.2 mg/dL; mag 1.4 mg/dL; albumin 1.8 g/dL. Electrolyte IV replacement was ordered. We discussed placement. She did not really want to go to [place]. Nevertheless,I feel that [facility] swing bed would be the best for her in view of her complexity. [place]. To be discussed with the bottle caser. On 11/04/20 the PICC line did not function properly and had to be replaced. This was done by IR. On 11/04/20 Mrs Stafford was seen in her hospital room. She felt chilly after coming back from andRT. She had no fever. Still having diarrhea. No other complaints. Her exam was unchanged. Her lab work showed a WBC of 3.7 with an ANC of 2.7; Hgb 9.5 g/dL; Plt 81,000. Glucose 304 mg/dL; sodium 134 mEq/L. Albumin 1.8 g/dL. Other values from the chemistry panel were WNL. I continued her IV fluids and anti-diarrheals. Placement will be a problem since [facility] cannot provide transportation for RT. They are willing to take the Pt when done with RT. On 11/05/20 Mrs Stafford was seen in her hospital room for re-evaluation of her cancers and osteomyelitis. She complained of redness,itchiness of the skin under the breasts and in the lower abd. She felt that it was a yeast infection an asked for Nystatin powder. I agreed with her and prescribed the Nystatin powder.She also was wondering when her stiches will come out Dr Casas said 2 weeks. On exam, the only change was redness under the breasts and in skin folds in the lower abdomen. Her lab work showed a WBC of 3.5 with an ANC of 2.6;Hgb 10.1 g/dL. Plt 81,000. Glucose 208 mg/dL; chloride 113 mEq/L; phosphorus 1.9 mg/dL; mag 1.4 mg/dL and albumin 1.9 g/dL. INR 2.2. She was continued on the same antibiotics. I told her that I would contact Dr Casas for the suture removal. On 11/06/20 Mrs Stafford was seen in her hospital room. She continued to have diarrhea. She had the sutures from her Rt index finger removed by Dr Casas. She complained of severe discomfort when going down for RT. She requested a pain med before her RT. I did prescribe hydromorphone. She was continuedon her current regimen of anti-diarrheals. Her exam was unchanged. The rash under the breasts had improved. She felt some burning under the breasts. I reassured her that the rash was improving. Her labwork showed a WBC of 3.6 with an ANC of 2.6; Hgb 10.0 g/dL; Plt 89,000. Glucose 251 mg/dL; sodium 134 mEq/L. Phosphorus 2.2 mg/dL; mag 1.5 mg/dL. Albumin 1.9 g/dL. INR 2.1. Electrolytes replacement was ordered. On 11/07/20 Mrs Stafford was seen in her hospital room. She continued to complain of diarrhea. Her skin rash was gone. She had Hydromorphone before RT today and did better with no pain. We are waiting the start of lung SBRT. No NH wants to take her before completion of the RT. Her exam was unchanged. The rash under her breasts was gone. No new findings. Her lab work showed a WBC of 3.9 with an ANC of 2.9; Hgb 9.6 g/dL; Plt 82,000. Glucose 180 mg/dL. Mag 1.6 mg/dL; albumin 1.8 g/dL. Her low albumin was probably related to her diarrhea,as well as the electrolytes imbalances. She was continued on her anti-diarrhea regimen. She did complete RT to the pancreas on 11/07/20. Next we need to treat her lung cancer. On 11/08/20 Mrs Stafford was seen in her hospital room. She was sitting in the chair. She remained quite weak, unable to reposition her self. She was eating well. She complained about the Metronidazole but was willing to continue to take it. She still had diarrhea. On exam, no new findings. Her lab work showed a fairly Nl UA with no proteins detected. Her WBC was 2.9 with an ANC of 2.0; Hgb 9.1 g/dL; Plt 87,000. Glucose 154 mg/dL; chloride 113 mEq/L. Phosphorus 2.0 mg/dL; mag 1.7 mg/dL; albumin 1.8 g/dL. INR 2.2. No changes were made. I gave her IV Mag and Phosphorus. Since no NH wanted to take her,she will have to stay hospitalized to be able to receive her antibiotics. On 11/18/20 she will be done with RT and could be transferred to [place] in a swing bed to continue with the antibiotics. She waswilling to stay in till 11/18/20. I plan adjuvant chemotherapy for the pancreas after done with RT and antibiotics. Phosphate and mag were replaced IV. She was continued on IV fluids with K replacement.Triple antibiotics were also continued. On 11/09/20 Mrs Stafford was seen in her hospital room. She was quite lethargic. The Nurse told me that she was fine when she returned from RT. But later on she complained of severe pain and received more pain meds. When I saw her around 7 pm she was sleepy but arouseble. She had no pain. She still had diarrhea. No other complaints. Her exam was otherwise unchanged. Her CBC showed a WBC of 3.1 with an ANC of 2.2; hGB 9.3 g/dL; Plt 79,000. Glucose 166 mg/dL;chloride 112 mEq/L. Phosphate 2.8 mg/dL; mag 1.7 mg/dL; albumin 1.8 g/dL. INR 2.2 She did receive 2 g of IV Mag. No other changes. She was continued on triple antibiotic. The plan remained to continue in-patient management until done with RT then transfer to [facility] in [place]. On 11/10/20 Mrs Stafford was seen in her hospital room. She was about the same. Still had diarrhea. She was able to eat. She was very fatigued and was sleeping a lot. No pain when I saw her around 6 pm.Her exam was unchanged. Her lab work showed a WBC of 3.0 with an ANC of 2.2; Hgb 9.3 g/dL; Plt 87,000. Glucose 175 mg/dL;chloride 114 mEq/L; phosphate 2.3 mg/dL; Albumin 1.8 g/dL. She seemed to be stable. She did not require electrolyte replacement. To continue her antibiotics. She will receive the 2nd fraction of RT to the chest on 11/11/20. To continue her meds for diarrhea. During the week-end she developed pitting edema of both UE and some in the LE. On 11/14/20 Mrs Stafford was seen in her hospital room. Her PICC line was malfunctioning. Dr Kimreplaced it. His note reads: IMPRESSION: 1. 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 2. Successful recanalization and balloon venoplasty of the superior vena cava with improved flow. This was resistant to venoplasty. 3. Successful tunneled Powerline central venous catheter placement with catheter tip positioned atthe cavoatrial junction. 4. Removal of left arm PICC. 5. Superior vena cava was resistant to venoplasty and will be at high risk for restenosis/occlusion. When I saw her late afternoon she still complained of swelling of bot UE. No other discomfort. She was fatigued but had received sedation for the procedure. Her exam was otherwise unchanged. Her lab work showed a WBC of 2.8 with an ANC of 1.9; Hgb 9.3 g/dL; Plt 80,000. Chloride 120 mEq/L; CO2: 18 mEq/L. Phosphorus 1.8 mg/dL;albumin 1.7 g/dL. Other values were WNL. To continue antibiotics. Next RT fraction on 11/16/20. Review of Systems Constitutional: Positive for fatigue. Negative for appetite change, chills, diaphoresis, fever and unexpected weight change. HENT: Positive for hearing loss. Eyes: Negative. Respiratory: Negative. Cardiovascular: Positive for leg swelling. Negative for chest pain and palpitations. Arms are swollen too. Gastrointestinal: Positive for diarrhea. Negative for abdominal pain, nausea and vomiting. Endocrine: Negative. Genitourinary: Negative. Skin: Positive for wound. Negative for itching and rash. Neurological: Positive for extremity weakness. Hematological: Negative. Psychiatric/Behavioral: Negative. Physical / Results Current Vital Signs Temp: 97.2 F (36.2 C) BP: 158/83 Weight: 57.8 kg (127 lb 6.8 oz) SpO2: 96 % Resp: 16 Pulse: 97 Current BMI (>50 = increased risk): 23.5 O2 Device: Room Air Pain Ratin Maximum Temperatures (last 24 hours) Temperature Maximum Max Temp 97.5 F (36.4 C) Intake and Output: 11/13 0700 - 11/14 0659 In: 1204 Out: 600 [Urine:600] Physical Exam Constitutional: General: She is not in acute distress. Appearance: Normal appearance. She is normal weight. She is not ill- appearing, toxic-appearing ordiaphoretic. HENT: Head: Normocephalic. Nose: Nose normal. Mouth/Throat: Mouth: Mucous membranes are moist. Pharynx: Oropharynx is clear. No oropharyngeal exudate. Eyes: General: No scleral icterus. Conjunctiva/sclera: Conjunctivae normal. Pupils: Pupils are equal, round, and reactive to light. Neck: Musculoskeletal: Normal range of motion. Cardiovascular: Rate and Rhythm: Normal rate and regular rhythm. Heart sounds: No murmur. Pulmonary: Effort: Pulmonary effort is normal. Breath sounds: Normal breath sounds. Abdominal: General: Abdomen is flat. Bowel sounds are normal. Palpations: Abdomen is soft. Hernia: A hernia is present. Musculoskeletal: Normal range of motion. General: Swelling present. Right lower leg: Edema present. Left lower leg: Edema present. Skin: General: Skin is warm and dry. Coloration: Skin is not jaundiced. Neurological: General: No focal deficit present. Mental Status: She is alert. Psychiatric: Mood and Affect: Mood normal. Results for BLAIR STAFFORD ( ) as of 11/15/2020 17:28 Ref. Range 11/14/2020 10:49 WBC Latest Ref Range: 4.0 - 11.0 K/uL 2.8 (L) RBC Latest Ref Range: 3.80 - 5.30 M/uL 3.14 (L) Hemoglobin Latest Ref Range: 11.5 - 15.8 g/dL 9.3 (L) Hematocrit Latest Ref Range: 35.0 - 45.0 % 28.8 (L) MCV Latest Ref Range: 80.0 - 98.0 fL 91.7 MCH Latest Ref Range: 25.5 - 34.0 pg 29.6 MCHC Latest Ref Range: 31.5 - 36.5 g/dL 32.3 RDW-CV Latest Ref Range: 11.5 - 15.5 % 21.5 (H) RDW-SD Latest Ref Range: 35.5 - 50.0 fl 70.5 (H) Platelet Count Latest Ref Range: 140 - 400 K/uL 80 (L) MPV Latest Ref Range: 8.5 - 12.0 fL 12.1 (H) Seg Neut Absolute Latest Ref Range: 1.8 - 8.0 K/uL 1.9 Lymphocytes Absolute Latest Ref Range: 0.8 - 4.1 K/uL 0.4 (L) Monocytes Absolute Latest Ref Range: 0.0 - 1.0 K/uL 0.5 Eosinophils Absolute Latest Ref Range: 0.0 - 0.7 K/uL 0.1 Basophil Absolute Latest Ref Range: 0.0 - 0.2 K/uL 0.0 Immature Granulocyte Absolute Latest Ref Range: 0.00 - 0.06 K/uL 0.01 Neutrophils Percent Latest Units: % 66.8 Neutrophils Abs. (Segs and Bands) Latest Units: /uL 1,900 Lymphocytes Percent Latest Units: % 13.7 Monocytes Percent Latest Units: % 16.2 Immature Granulocyte Percent Latest Units: % 0.4 Eosinophils Percent Latest Units: % 2.5 Basophil Percent Latest Units: % 0.4 Nucleated RBC Latest Units: /100 WBC's 0 Glucose Latest Ref Range: 70 - 100 mg/dL 92 Sodium Latest Ref Range: 135 - 145 meq/L 140 Potassium Latest Ref Range: 3.5 - 5.3 meq/L 4.1 Chloride Latest Ref Range: 99 - 110 meq/L 120 (H) CO2 Latest Ref Range: 20 - 29 meq/L 18 (L) Anion Gap with K Latest Ref Range: 6 - 20 meq/L 6 BUN Latest Ref Range: 6 - 22 mg/dL 12 Creatinine Latest Ref Range: 0.60 - 1.10 mg/dL 0.66 BUN/Creatinine Ratio Latest Ref Range: 10.0 - 25.0 18.2 Calcium Latest Ref Range: 8.5 - 10.5 mg/dL 7.3 (L) Corrected Calcium Latest Ref Range: 8.5 - 10.5 mg/dL 9.1 Phosphorus Latest Ref Range: 2.5 - 4.5 mg/dL 1.8 (L) Magnesium Latest Ref Range: 1.8 - 2.4 mg/dL 2.0 Albumin Latest Ref Range: 3.5 - 5.0 g/dL 1.7 (L) eGFR Latest Ref Range: >=60 mL/min/1.73m2 >90 eGFR Non- Latest Ref Range: >=60 mL/min/1.73m2 86 Protime Latest Ref Range: 12.0 - 14.5 secs 23.4 (H) INR Latest Ref Range: 2.0 - 3.5 2.1 Gertrude Thomas MD - 11/10/2020 7:04 PM CDT Hematology/Oncology Daily Progress Note Blair Stafford is a 80yr old female admitted on 10/18/2020. 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 * Plan: Continue antibiotics per ID. Second fraction of SBRT on 11/11/20. Continue close monitoring. Same antidiarrheals. Estimated Discharge Date: 11/18/20. HPI / History / ROS HPI Mrs. Stafford is an 80-year-old white female patient who has been followed by me over the years for colon cancer. She also has problems with persistent thromboembolic disease. She is on chronic anticoagulation with warfarin. She was diagnosed recently with stage I lung cancer and a stage I cancer of the pancreas. We decided to approach the cancer of the pancreas first with chemoradiation. She started treatment a couple of weeks ago. Her chemotherapy is capecitabine as a radiosensitizer at a very low dose of 500 mg twice a day. I saw the patient on 10/18/2020 for routine followup. She complained of severe pain of the right 2nd finger. Her fingernail fell off and the tip of the finger fell off as well. The wound did not seem to be infected, but she had cellulitis of the right 2nd finger, and this was excruciatingly painful. She did try to take cephalexin that she had at home, but it did not help. In view of that, plus the fact that she had severe diarrhea, plus the fact that she was dehydrated, I did admit her for IV antibiotics and IV hydration. She also has hypokalemia, hypomagnesemia, hypophosphatemia, and these will need to be replaced intravenously since she is not able to tolerate lotsof oral replacement. I decided to treat her finger cellulitis with Rocephin. She received the 1st dose on 10/18/2020. When seen on 10/19/2020, her right 2nd finger had somewhat improved. I did request a hand surgery consultation, but this has not been done yet. She also has a diabetic ulcer on the right lower extremity, which is being taken care of by the wound nurse. Her lab work on 10/19/2020 showed a white count of 6,000, hemoglobin 11.4, platelet count 94,000. Differential count normal. Chemistries: Glucose 203, sodium 133, potassium 3.0, phosphorus 2.2, magnesium 2.0 after replacement. INR 2.0. I gave her more IV potassium and phosphate. She still has quite severe diarrhea despite taking Lomotil. She takes 2 tablets 4 times a day, which is a high dose, but it seems that that is what she needs to control the diarrhea. Once the diarrhea is controlled, I might go back on capecitabine. The patient is anxious to go home and does not want to stay in the hospital any longer than necessary. I told her that we better give her 5 days of IV antibiotics and try to get her finger in a better shape. Otherwise, if we stop the antibiotic therapy too soon, the cellulitis of the right 2nd finger might flare up again. She agreed to stay to complete her IV antibiotics. On 10/20/20 she had an XR of the Rt hand showing: FINDING: Bony irregularity and/or fracture second digit distal phalanx. Some soft tissue injury changes are also present correlate for recent trauma versus infection. On 10/20/20 Mrs Stafford was seen in her hospital room. She continued to improve. Eating better. The Rt 2nd finger was still hurting. She had a mild cough. The RLE ulcer was dressed. She had an JACQUI bandage around the Rt lower leg. She still had severe diarrhea despite the Lomotil. She had 6 BM's today.She did continue with the RT. Her exam was basically unchanged. Her lab work showed a WBC of 5.0 with an ANC of 4.0; Hgb 11.9 g/dL; Plt 104,000. Glucose 157 mg/dL; phosphorus 1.8 mg/dL; mag 1.5 mg/dL. Albumin 2.2 g/dL. Other chemistries were WNL. She still had evidence of protein/caloric malnutrition.The dietitian was consulted. She did receive her RT today. She requested to add Imodium to her Lomotil. I did order it. Awaiting opinion from hand surgery. For now,I continued Rocephin and replaced herelectrolytes IV. 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 He recommended amputation. The Pt declined. She said that she wanted to complete her RT first.ID consult was requested. On 10/21/20 she had a CXR showing: FINDINGS/IMPRESSION: The cardiac silhouette is normal in size. There is calcified atherosclerosis of the thoracic aorta. There is a 1.3 cm nodular opacity within the mid right lung which likely corresponds with the hypermetabolic nodule in the periphery of the right upper lobe on the prior PET/CT from 07/27/2020. No additional pulmonary nodules are identified. No focal airspace consolidation. No pneumothorax or pleural effusion. On 10/21/20 she was seen by Dr Burgos from ID. He did change the antibiotic to a combination of Cefepime/Metronidazole/Vancomycin. He felt that she should have surgery soon. On 10/21/20 I saw Mrs Stafford in her hospital room. She was feeling fairly well. Her diarrhea had improved. But she was not eating much. Her pain was at an acceptable level. Her exam was unchanged. I explained to her that she needed surgery soon. She agreed to have it done. I'll let Dr Casas know. Hope to have her surgery next week and resume her radiosensitizing chemotherapy. RT can continue since it has no effect on the finger.Her electrolytes were replaced IV. Her CXR was reviewed and felt unchanged. She had her Rt distal index finger amputated by Dr Casas on 10/24/20. She tolearted the procedure well. On 10/24/20 Mrs Stafford was seen in her hospital room after the amputation. She had no pain. She was started on Octreotide by Dr Maldonado this week-end. This seemed to have helped some. Her appetite remained good. She did receive her RT. Her exam was unchanged. Her Plt count was 97,000. Otherwise the CBC was unremarkable. Her chemistries were close to Nl. Phosphorus was 2.1 mg/dL; Albumin was 2.1 g/dL. Her INR was 2.4 and was reverted with FFP for the procedure. Continue antibiotics for now and check with ID. Continue daily RT. Resume Capecitabine in a few days. On 10/25/20 Mrs Stafford was seen in her hospital room. She had pain in the amputated finger. Her diarrhea had improved since on Octreotide. Eating well. Tolerating the RT well. Her exam was unchanged except for the amputated finger. Her CBC showed a WBC of 3.8 with an ANC of 2.8; Hgb 11.0 g/dL; Plt 74,000. Glucose 230 mg/dL; sodium 134 mEq/L. Phosphate 1.9 mg/dL; mag 2.0 mg/dL. Other values were Nl. Mag and phosphate were replaced.Antibiotics per ID. Await cultures and pathology. On 10/27/20 Mrs Stafford was seen in her hospital room. She said that on 10/26/20 she was very weak. Shefelt a little better on 10/27/20. She continued to have diarrhea. She continued to eat well. Her exam was unchanged. The amputated finger stump was dressed. The surgeon examined it and was satisfied withthe healing. Her exam was unchanged. Her lab work showed a WBC of 4.6 with an ANC of 3.5; Hgb 11.0 g/dL; Plt 58,000. Glucose 215 mg/dL; chloride 111 mEq/L. Phosphorus 1.3 mg/dL; mag 1.4 mg/dL; albumin 1.9 g/dL. She will need mag and phosphate replacements. In view of the thrombocytopenia, most likely caused by Vancomycin, I was not able to resume the Capecitabine. Continue daily monitoring of her counts and chemistries. On 10/28/20 Mrs Stafford was seen in her hospital room. She complained of extreme fatigue. She was eating well. Her legs remained weak. Her cough has resolved since she quit the nicotine patches. Her diarrhea did improve with the current regimen. She did receive her RT today. On exam, the Rt index finger stump was dressed. Her pain was acceptable. Her lab work showed a WBC of 7.3 with an ANC of 5.8; Hgb 11.5 g/dL; Plt 63,000. Phosphorus was 1.3 mg/dL;mag was 1.3 mg/dL; albumin was 2.0 g/dL. Other values were Nl. I did review Dr Burgos's recommendations for antibiotic therapy. He recommended to continue Cefepime/Vanco/Metronidazole while in the hospital. At discharge,he recommends Ertapenem and Daptomycin. The duration of treatment will depend on the pathology. Dr Burgos will see her out-patient in 1-2 weeks to decide. She may need antibiotics till 12/05/20. She will require weakly lab work. The Pt was not interested in the [facility] bed. She could not go home due to the cost of the antibiotics. The best might be a TCU in [place] and get the antibiotics out- patient at the . Will discuss with the bottle caser Saturday. Since her Plt count has not recovered yet, I am holding the Capecitabine. Will continue daily labs and daily electrolytes replacement. On 10/31/20 Mrs Stafford was seen in her hospital room. She still had severe diarrhea during the week-end. Her Lomotil was increased with some decrease in the diarrhea. No pain. Her exam was unchanged. Her CBC showed a WBC of 5.9 with an ANC of 4.7; Hgb 10.7 g/dL; Plt 69,000. Glucose 121 mg/dL; [id number] mEq/L. Phosphorus 1.4 mg/dL; mag 1.7 mg/dL; albumin 1.9 g/dL. She received IV Mag and phosphate.As long as she has diarrhea, we need to keep her on IV fluids. If the diarrhea improves,she could goto a TCU and continue RT. If this does not work, she may need to go to [place] in a swing bed. On 11/01/20 Mrs Stafford was seen in her hospital room. She was sitting at the edge of the bed eating.She had a good appetite. No new complaints. The diarrhea was better. She only had 3 BM's by 7 pm. Her exam was unchanged. I did call the pathology lab. They are 1 week behind due to their move. Hope toget the pathology back in 2-3 days. Her lab work remained stable. Her WBC was 5.0 with an ANC of 3.8; Hgb 10.5 g/dL; Plt 72,000. Glucose 196 mg/dL; phosphorus 2.2 mg/dL and mag 1.5 mg/dL;Albumin 1.9 g/dL; LFT's unremarkable. Other chemistries were Nl. She received IV phosphate and mag. She was continued on RT. The Capecitabine continued to be held mainly due to her thrombocytopenia. On 11/02/20 Mrs Stafford was seen in her hospital room. She was feeling cold after coming back from the RT. She had no fever. She had still quite severe diarrhea.C diff was neg. Her exam was unchanged. Her lab work showed a WBC of 4.6; ANC 3.4; Hgb 9.3 g/dL; Plt 81,000. Glucose 196 mg/dL; phosphorus 2.2 mg/dL; mag 1.5 mg/dL; albumin 1.8 g/dL. Dietitian was working on her nutrition. Mag and phosphate were replaced IV. No chemo since her Plt count was still low and she was almost done with RT. Await placement. Pt too complex for a NH and did not want daily transfers from [place] where a swing bed was available.To continue RT as ordered. On 11/03/20 Mrs Stafford was seen in her hospital room. She continued to have diarrhea. She continuedto require electrolytes IV replacement. She had some back pain. Eating well. Her exam was unchanged.Her CBC showed a WBC of 4.1 with an ANC of 3.2; Hgb 9.8 and Plt 69,000. Glucose was 302 mg/dL; sodium 133 mEq/L. Phosphate 2.2 mg/dL; mag 1.4 mg/dL; albumin 1.8 g/dL. Electrolyte IV replacement was ordered. We discussed placement. She did not really want to go to [place]. Nevertheless,I feel that [facility] swing bed would be the best for her in view of her complexity. [place]. To be discussed with the bottle caser. On 11/04/20 the PICC line did not function properly and had to be replaced. This was done by IR. On 11/04/20 Mrs Stafford was seen in her hospital room. She felt chilly after coming back from and. She had no fever. Still having diarrhea. No other complaints. Her exam was unchanged. Her lab work showed a WBC of 3.7 with an ANC of 2.7; Hgb 9.5 g/dL; Plt 81,000. Glucose 304 mg/dL; sodium 134 mEq/L. Albumin 1.8 g/dL. Other values from the chemistry panel were WNL. I continued her IV fluids and anti-diarrheals. Placement will be a problem since [facility] cannot provide transportation for RT. They are willing to take the Pt when done with RT. On 11/05/20 Mrs Stafford was seen in her hospital room for re-evaluation of her cancers and osteomyelitis. She complained of redness,itchiness of the skin under the breasts and in the lower abd. She felt that it was a yeast infection an asked for Nystatin powder. I agreed with her and prescribed the Nystatin powder.She also was wondering when her stiches will come out Dr Casas said 2 weeks. On exam, the only change was redness under the breasts and in skin folds in the lower abdomen. Her lab work showed a WBC of 3.5 with an ANC of 2.6;Hgb 10.1 g/dL. Plt 81,000. Glucose 208 mg/dL; chloride 113 mEq/L; phosphorus 1.9 mg/dL; mag 1.4 mg/dL and albumin 1.9 g/dL. INR 2.2. She was continued on the same antibiotics. I told her that I would contact Dr Casas for the suture removal. On 11/06/20 Mrs Stafford was seen in her hospital room. She continued to have diarrhea. She had the sutures from her Rt index finger removed by Dr Casas. She complained of severe discomfort when going down for RT. She requested a pain med before her RT. I did prescribe hydromorphone. She was continuedon her current regimen of anti-diarrheals. Her exam was unchanged. The rash under the breasts had improved. She felt some burning under the breasts. I reassured her that the rash was improving. Her labwork showed a WBC of 3.6 with an ANC of 2.6; Hgb 10.0 g/dL; Plt 89,000. Glucose 251 mg/dL; sodium 134 mEq/L. Phosphorus 2.2 mg/dL; mag 1.5 mg/dL. Albumin 1.9 g/dL. INR 2.1. Electrolytes replacement was ordered. On 11/07/20 Mrs Stafford was seen in her hospital room. She continued to complain of diarrhea. Her skin rash was gone. She had Hydromorphone before RT today and did better with no pain. We are waiting the start of lung SBRT. No NH wants to take her before completion of the RT. Her exam was unchanged. The rash under her breasts was gone. No new findings. Her lab work showed a WBC of 3.9 with an ANC of 2.9; Hgb 9.6 g/dL; Plt 82,000. Glucose 180 mg/dL. Mag 1.6 mg/dL; albumin 1.8 g/dL. Her low albumin was probably related to her diarrhea,as well as the electrolytes imbalances. She was continued on her anti-diarrhea regimen. She did complete RT to the pancreas on 11/07/20. Next we need to treat her lung cancer. On 11/08/20 Mrs Stafford was seen in her hospital room. She was sitting in the chair. She remained quite weak, unable to reposition her self. She was eating well. She complained about the Metronidazole but was willing to continue to take it. She still had diarrhea. On exam, no new findings. Her lab work showed a fairly Nl UA with no proteins detected. Her WBC was 2.9 with an ANC of 2.0; Hgb 9.1 g/dL; Plt 87,000. Glucose 154 mg/dL; chloride 113 mEq/L. Phosphorus 2.0 mg/dL; mag 1.7 mg/dL; albumin 1.8 g/dL. INR 2.2. No changes were made. I gave her IV Mag and Phosphorus. Since no NH wanted to take her,she will have to stay hospitalized to be able to receive her antibiotics. On 11/18/20 she will be done with RT and could be transferred to [place] in a swing bed to continue with the antibiotics. She waswilling to stay in till 11/18/20. I plan adjuvant chemotherapy for the pancreas after done with RT and antibiotics. Phosphate and mag were replaced IV. She was continued on IV fluids with K replacement.Triple antibiotics were also continued. On 11/09/20 Mrs Stafford was seen in her hospital room. She was quite lethargic. The Nurse told me that she was fine when she returned from RT. But later on she complained of severe pain and received more pain meds. When I saw her around 7 pm she was sleepy but arouseble. She had no pain. She still had diarrhea. No other complaints. Her exam was otherwise unchanged. Her CBC showed a WBC of 3.1 with an ANC of 2.2; hGB 9.3 g/dL; Plt 79,000. Glucose 166 mg/dL;chloride 112 mEq/L. Phosphate 2.8 mg/dL; mag 1.7 mg/dL; albumin 1.8 g/dL. INR 2.2 She did receive 2 g of IV Mag. No other changes. She was continued on triple antibiotic. The plan remained to continue in-patient management until done with RT then transfer to [facility] in [place]. On 11/10/20 Mrs Stafford was seen in her hospital room. She was about the same. Still had diarrhea. She was able to eat. She was very fatigued and was sleeping a lot. No pain when I saw her around 6 pm.Her exam was unchanged. Her lab work showed a WBC of 3.0 with an ANC of 2.2; Hgb 9.3 g/dL; Plt 87,000. Glucose 175 mg/dL;chloride 114 mEq/L; phosphate 2.3 mg/dL; Albumin 1.8 g/dL. She seemed to be stable. She did not require electrolyte replacement. To continue her antibiotics. She will receive the 2nd fraction of RT to the chest on 11/11/20. To continue her meds for diarrhea. Review of Systems Constitutional: Positive for fatigue (She sleeps a lot.). Negative for appetite change, chills, diaphoresis, fever and unexpected weight change. HENT: Positive for hearing loss. Eyes: Negative. Respiratory: Negative. Cardiovascular: Negative. Gastrointestinal: Positive for diarrhea. Negative for abdominal distention, abdominal pain, nausea and vomiting. Endocrine: Negative. Genitourinary: Negative. Musculoskeletal: Positive for back pain. Skin: Positive for wound. Negative for itching and rash. Neurological: Positive for extremity weakness. Hematological: Negative. Psychiatric/Behavioral: Negative. Physical / Results Current Vital Signs Temp: 97.9 F (36.6 C) BP: 134/57 Weight: 50.3 kg (110 lb 12.8 oz) SpO2: 97 % Resp: 16 Pulse: 77 Current BMI (>50 = increased risk): 23.5 O2 Device: Room Air Pain Ratin Maximum Temperatures (last 24 hours) Temperature Maximum Max Temp 98 F (36.7 C) Intake and Output: 11/09 0700 - 11/10 0659 In: 663 [Oral:520] Out: 400 [Urine:400] Physical Exam Constitutional: General: She is not in acute distress. Appearance: Normal appearance. She is normal weight. She is not ill- appearing, toxic-appearing ordiaphoretic. HENT: Head: Normocephalic. Nose: Nose normal. Mouth/Throat: Mouth: Mucous membranes are moist. Pharynx: Oropharynx is clear. No oropharyngeal exudate. Eyes: General: No scleral icterus. Conjunctiva/sclera: Conjunctivae normal. Pupils: Pupils are equal, round, and reactive to light. Neck: Musculoskeletal: Normal range of motion and neck supple. Cardiovascular: Rate and Rhythm: Normal rate and regular rhythm. Heart sounds: No murmur. Pulmonary: Effort: Pulmonary effort is normal. Breath sounds: Normal breath sounds. Abdominal: General: Abdomen is flat. Bowel sounds are normal. There is no distension. Tenderness: There is no abdominal tenderness. Musculoskeletal: Normal range of motion. General: No swelling. Right lower leg: No edema. Left lower leg: No edema. Skin: General: Skin is warm. Findings: Lesion present. No erythema. Neurological: General: No focal deficit present. Mental Status: She is alert. Psychiatric: Mood and Affect: Mood normal. Results for BLAIR STAFFORD ( ) as of 11/10/2020 17:54 Ref. Range 11/10/2020 05:41 WBC Latest Ref Range: 4.0 - 11.0 K/uL 3.0 (L) RBC Latest Ref Range: 3.80 - 5.30 M/uL 3.13 (L) Hemoglobin Latest Ref Range: 11.5 - 15.8 g/dL 9.3 (L) Hematocrit Latest Ref Range: 35.0 - 45.0 % 28.7 (L) MCV Latest Ref Range: 80.0 - 98.0 fL 91.7 MCH Latest Ref Range: 25.5 - 34.0 pg 29.7 MCHC Latest Ref Range: 31.5 - 36.5 g/dL 32.4 RDW-CV Latest Ref Range: 11.5 - 15.5 % 20.3 (H) RDW-SD Latest Ref Range: 35.5 - 50.0 fl 66.9 (H) Platelet Count Latest Ref Range: 140 - 400 K/uL 87 (L) MPV Latest Ref Range: 8.5 - 12.0 fL 12.7 (H) Seg Neut Absolute Latest Ref Range: 1.8 - 8.0 K/uL 2.2 Lymphocytes Absolute Latest Ref Range: 0.8 - 4.1 K/uL 0.4 (L) Monocytes Absolute Latest Ref Range: 0.0 - 1.0 K/uL 0.3 Eosinophils Absolute Latest Ref Range: 0.0 - 0.7 K/uL 0.1 Basophil Absolute Latest Ref Range: 0.0 - 0.2 K/uL 0.0 Immature Granulocyte Absolute Latest Ref Range: 0.00 - 0.06 K/uL 0.02 Neutrophils Percent Latest Units: % 72.4 Neutrophils Abs. (Segs and Bands) Latest Units: /uL 2,200 Lymphocytes Percent Latest Units: % 14.1 Monocytes Percent Latest Units: % 9.4 Immature Granulocyte Percent Latest Units: % 0.7 Eosinophils Percent Latest Units: % 3.4 Basophil Percent Latest Units: % 0.0 Nucleated RBC Latest Units: /100 WBC's 0 Glucose Latest Ref Range: 70 - 100 mg/dL 175 (H) Sodium Latest Ref Range: 135 - 145 meq/L 137 Potassium Latest Ref Range: 3.5 - 5.3 meq/L 4.0 Chloride Latest Ref Range: 99 - 110 meq/L 114 (H) CO2 Latest Ref Range: 20 - 29 meq/L 22 Anion Gap with K Latest Ref Range: 6 - 20 meq/L 5 (L) BUN Latest Ref Range: 6 - 22 mg/dL 10 Creatinine Latest Ref Range: 0.60 - 1.10 mg/dL 0.66 BUN/Creatinine Ratio Latest Ref Range: 10.0 - 25.0 15.2 Calcium Latest Ref Range: 8.5 - 10.5 mg/dL 7.2 (L) Corrected Calcium Latest Ref Range: 8.5 - 10.5 mg/dL 9.0 Phosphorus Latest Ref Range: 2.5 - 4.5 mg/dL 2.3 (L) Magnesium Latest Ref Range: 1.8 - 2.4 mg/dL 1.9 Albumin Latest Ref Range: 3.5 - 5.0 g/dL 1.8 (L) eGFR Latest Ref Range: >=60 mL/min/1.73m2 >90 eGFR Non- Latest Ref Range: >=60 mL/min/1.73m2 86 Protime Latest Ref Range: 12.0 - 14.5 secs 25.6 (H) INR Latest Ref Range: 2.0 - 3.5 2.4 Glucose POC Latest Ref Range: 70 - 99 mg/dL 144 (H) Gertrude Thomas MD - 11/09/2020 8:16 PM CDT Hematology/Oncology Daily Progress Note Blair Stafford is a 80yr old female admitted on 10/18/2020. 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 * Plan: Continue triple antibiotics. RT to the lung x 5 fractions. Continue current anti-diarrheals. IV mag replacement. Estimated Discharge Date: 11/18/20. HPI / History / ROS HPI Mrs. Stafford is an 80-year-old white female patient who has been followed by me over the years for colon cancer. She also has problems with persistent thromboembolic disease. She is on chronic anticoagulation with warfarin. She was diagnosed recently with stage I lung cancer and a stage I cancer of the pancreas. We decided to approach the cancer of the pancreas first with chemoradiation. She started treatment a couple of weeks ago. Her chemotherapy is capecitabine as a radiosensitizer at a very low dose of 500 mg twice a day. I saw the patient on 10/18/2020 for routine followup. She complained of severe pain of the right 2nd finger. Her fingernail fell off and the tip of the finger fell off as well. The wound did not seem to be infected, but she had cellulitis of the right 2nd finger, and this was excruciatingly painful. She did try to take cephalexin that she had at home, but it did not help. In view of that, plus the fact that she had severe diarrhea, plus the fact that she was dehydrated, I did admit her for IV antibiotics and IV hydration. She also has hypokalemia, hypomagnesemia, hypophosphatemia, and these will need to be replaced intravenously since she is not able to tolerate lotsof oral replacement. I decided to treat her finger cellulitis with Rocephin. She received the 1st dose on 10/18/2020. When seen on 10/19/2020, her right 2nd finger had somewhat improved. I did request a hand surgery consultation, but this has not been done yet. She also has a diabetic ulcer on the right lower extremity, which is being taken care of by the wound nurse. Her lab work on 10/19/2020 showed a white count of 6,000, hemoglobin 11.4, platelet count 94,000. Differential count normal. Chemistries: Glucose 203, sodium 133, potassium 3.0, phosphorus 2.2, magnesium 2.0 after replacement. INR 2.0. I gave her more IV potassium and phosphate. She still has quite severe diarrhea despite taking Lomotil. She takes 2 tablets 4 times a day, which is a high dose, but it seems that that is what she needs to control the diarrhea. Once the diarrhea is controlled, I might go back on capecitabine. The patient is anxious to go home and does not want to stay in the hospital any longer than necessary. I told her that we better give her 5 days of IV antibiotics and try to get her finger in a better shape. Otherwise, if we stop the antibiotic therapy too soon, the cellulitis of the right 2nd finger might flare up again. She agreed to stay to complete her IV antibiotics. On 10/20/20 she had an XR of the Rt hand showing: FINDING: Bony irregularity and/or fracture second digit distal phalanx. Some soft tissue injury changes are also present correlate for recent trauma versus infection. On 10/20/20 Mrs Stafford was seen in her hospital room. She continued to improve. Eating better. The Rt 2nd finger was still hurting. She had a mild cough. The RLE ulcer was dressed. She had an JACQUI bandage around the Rt lower leg. She still had severe diarrhea despite the Lomotil. She had 6 BM's today.She did continue with the RT. Her exam was basically unchanged. Her lab work showed a WBC of 5.0 with an ANC of 4.0; Hgb 11.9 g/dL; Plt 104,000. Glucose 157 mg/dL; phosphorus 1.8 mg/dL; mag 1.5 mg/dL. Albumin 2.2 g/dL. Other chemistries were WNL. She still had evidence of protein/caloric malnutrition.The dietitian was consulted. She did receive her RT today. She requested to add Imodium to her Lomotil. I did order it. Awaiting opinion from hand surgery. For now,I continued Rocephin and replaced herelectrolytes IV. 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 He recommended amputation. The Pt declined. She said that she wanted to complete her RT first.ID consult was requested. On 10/21/20 she had a CXR showing: FINDINGS/IMPRESSION: The cardiac silhouette is normal in size. There is calcified atherosclerosis of the thoracic aorta. There is a 1.3 cm nodular opacity within the mid right lung which likely corresponds with the hypermetabolic nodule in the periphery of the right upper lobe on the prior PET/CT from 07/27/2020. No additional pulmonary nodules are identified. No focal airspace consolidation. No pneumothorax or pleural effusion. On 10/21/20 she was seen by Dr Burgos from ID. He did change the antibiotic to a combination of Cefepime/Metronidazole/Vancomycin. He felt that she should have surgery soon. On 10/21/20 I saw Mrs Stafford in her hospital room. She was feeling fairly well. Her diarrhea had improved. But she was not eating much. Her pain was at an acceptable level. Her exam was unchanged. I explained to her that she needed surgery soon. She agreed to have it done. I'll let Dr Casas know. Hope to have her surgery next week and resume her radiosensitizing chemotherapy. RT can continue since it has no effect on the finger.Her electrolytes were replaced IV. Her CXR was reviewed and felt unchanged. She had her Rt distal index finger amputated by Dr Casas on 10/24/20. She tolearted the procedure well. On 10/24/20 Mrs Stafford was seen in her hospital room after the amputation. She had no pain. She was started on Octreotide by Dr Maldonado this week-end. This seemed to have helped some. Her appetite remained good. She did receive her RT. Her exam was unchanged. Her Plt count was 97,000. Otherwise the CBC was unremarkable. Her chemistries were close to Nl. Phosphorus was 2.1 mg/dL; Albumin was 2.1 g/dL. Her INR was 2.4 and was reverted with FFP for the procedure. Continue antibiotics for now and check with ID. Continue daily RT. Resume Capecitabine in a few days. On 10/25/20 Mrs Stafford was seen in her hospital room. She had pain in the amputated finger. Her diarrhea had improved since on Octreotide. Eating well. Tolerating the RT well. Her exam was unchanged except for the amputated finger. Her CBC showed a WBC of 3.8 with an ANC of 2.8; Hgb 11.0 g/dL; Plt 74,000. Glucose 230 mg/dL; sodium 134 mEq/L. Phosphate 1.9 mg/dL; mag 2.0 mg/dL. Other values were Nl. Mag and phosphate were replaced.Antibiotics per ID. Await cultures and pathology. On 10/27/20 Mrs Stafford was seen in her hospital room. She said that on 10/26/20 she was very weak. Shefelt a little better on 10/27/20. She continued to have diarrhea. She continued to eat well. Her exam was unchanged. The amputated finger stump was dressed. The surgeon examined it and was satisfied withthe healing. Her exam was unchanged. Her lab work showed a WBC of 4.6 with an ANC of 3.5; Hgb 11.0 g/dL; Plt 58,000. Glucose 215 mg/dL; chloride 111 mEq/L. Phosphorus 1.3 mg/dL; mag 1.4 mg/dL; albumin 1.9 g/dL. She will need mag and phosphate replacements. In view of the thrombocytopenia, most likely caused by Vancomycin, I was not able to resume the Capecitabine. Continue daily monitoring of her counts and chemistries. On 10/28/20 Mrs Stafford was seen in her hospital room. She complained of extreme fatigue. She was eating well. Her legs remained weak. Her cough has resolved since she quit the nicotine patches. Her diarrhea did improve with the current regimen. She did receive her RT today. On exam, the Rt index finger stump was dressed. Her pain was acceptable. Her lab work showed a WBC of 7.3 with an ANC of 5.8; Hgb 11.5 g/dL; Plt 63,000. Phosphorus was 1.3 mg/dL;mag was 1.3 mg/dL; albumin was 2.0 g/dL. Other values were Nl. I did review Dr Burgos's recommendations for antibiotic therapy. He recommended to continue Cefepime/Vanco/Metronidazole while in the hospital. At discharge,he recommends Ertapenem and Daptomycin. The duration of treatment will depend on the pathology. Dr Burgos will see her out-patient in 1-2 weeks to decide. She may need antibiotics till 12/05/20. She will require weakly lab work. The Pt was not interested in the [facility] bed. She could not go home due to the cost of the antibiotics. The best might be a TCU in [place] and get the antibiotics out- patient at the . Will discuss with the bottle caser Saturday. Since her Plt count has not recovered yet, I am holding the Capecitabine. Will continue daily labs and daily electrolytes replacement. On 10/31/20 Mrs Stafford was seen in her hospital room. She still had severe diarrhea during the week-end. Her Lomotil was increased with some decrease in the diarrhea. No pain. Her exam was unchanged. Her CBC showed a WBC of 5.9 with an ANC of 4.7; Hgb 10.7 g/dL; Plt 69,000. Glucose 121 mg/dL; [id number] mEq/L. Phosphorus 1.4 mg/dL; mag 1.7 mg/dL; albumin 1.9 g/dL. She received IV Mag and phosphate.As long as she has diarrhea, we need to keep her on IV fluids. If the diarrhea improves,she could goto a TCU and continue RT. If this does not work, she may need to go to [place] in a swing bed. On 11/01/20 Mrs Stafford was seen in her hospital room. She was sitting at the edge of the bed eating.She had a good appetite. No new complaints. The diarrhea was better. She only had 3 BM's by 7 pm. Her exam was unchanged. I did call the pathology lab. They are 1 week behind due to their move. Hope toget the pathology back in 2-3 days. Her lab work remained stable. Her WBC was 5.0 with an ANC of 3.8; Hgb 10.5 g/dL; Plt 72,000. Glucose 196 mg/dL; phosphorus 2.2 mg/dL and mag 1.5 mg/dL;Albumin 1.9 g/dL; LFT's unremarkable. Other chemistries were Nl. She received IV phosphate and mag. She was continued on RT. The Capecitabine continued to be held mainly due to her thrombocytopenia. On 11/02/20 Mrs Stafford was seen in her hospital room. She was feeling cold after coming back from the RT. She had no fever. She had still quite severe diarrhea.C diff was neg. Her exam was unchanged. Her lab work showed a WBC of 4.6; ANC 3.4; Hgb 9.3 g/dL; Plt 81,000. Glucose 196 mg/dL; phosphorus 2.2 mg/dL; mag 1.5 mg/dL; albumin 1.8 g/dL. Dietitian was working on her nutrition. Mag and phosphate were replaced IV. No chemo since her Plt count was still low and she was almost done with RT. Await placement. Pt too complex for a NH and did not want daily transfers from [place] where a swing bed was available.To continue RT as ordered. On 11/03/20 Mrs Stafford was seen in her hospital room. She continued to have diarrhea. She continuedto require electrolytes IV replacement. She had some back pain. Eating well. Her exam was unchanged.Her CBC showed a WBC of 4.1 with an ANC of 3.2; Hgb 9.8 and Plt 69,000. Glucose was 302 mg/dL; sodium 133 mEq/L. Phosphate 2.2 mg/dL; mag 1.4 mg/dL; albumin 1.8 g/dL. Electrolyte IV replacement was ordered. We discussed placement. She did not really want to go to [place]. Nevertheless,I feel that [facility] swing bed would be the best for her in view of her complexity. [place]. To be discussed with the bottle caser. On 11/04/20 the PICC line did not function properly and had to be replaced. This was done by . On 11/04/20 Mrs Stafford was seen in her hospital room. She felt chilly after coming back from [facility]. She had no fever. Still having diarrhea. No other complaints. Her exam was unchanged. Her lab work showed a WBC of 3.7 with an ANC of 2.7; Hgb 9.5 g/dL; Plt 81,000. Glucose 304 mg/dL; sodium 134 mEq/L. Albumin 1.8 g/dL. Other values from the chemistry panel were WNL. I continued her IV fluids and anti-diarrheals. Placement will be a problem since [facility] cannot provide transportation for RT. They are willing to take the Pt when done with RT. On 11/05/20 Mrs Stafford was seen in her hospital room for re-evaluation of her cancers and osteomyelitis. She complained of redness,itchiness of the skin under the breasts and in the lower abd. She felt that it was a yeast infection an asked for Nystatin powder. I agreed with her and prescribed the Nystatin powder.She also was wondering when her stiches will come out Dr Casas said 2 weeks. On exam, the only change was redness under the breasts and in skin folds in the lower abdomen. Her lab work showed a WBC of 3.5 with an ANC of 2.6;Hgb 10.1 g/dL. Plt 81,000. Glucose 208 mg/dL; chloride 113 mEq/L; phosphorus 1.9 mg/dL; mag 1.4 mg/dL and albumin 1.9 g/dL. INR 2.2. She was continued on the same antibiotics. I told her that I would contact Dr Casas for the suture removal. On 11/06/20 Mrs Stafford was seen in her hospital room. She continued to have diarrhea. She had the sutures from her Rt index finger removed by Dr Casas. She complained of severe discomfort when going down for RT. She requested a pain med before her RT. I did prescribe hydromorphone. She was continuedon her current regimen of anti-diarrheals. Her exam was unchanged. The rash under the breasts had improved. She felt some burning under the breasts. I reassured her that the rash was improving. Her labwork showed a WBC of 3.6 with an ANC of 2.6; Hgb 10.0 g/dL; Plt 89,000. Glucose 251 mg/dL; sodium 134 mEq/L. Phosphorus 2.2 mg/dL; mag 1.5 mg/dL. Albumin 1.9 g/dL. INR 2.1. Electrolytes replacement was ordered. On 11/07/20 Mrs Stafford was seen in her hospital room. She continued to complain of diarrhea. Her skin rash was gone. She had Hydromorphone before RT today and did better with no pain. We are waiting the start of lung SBRT. No NH wants to take her before completion of the RT. Her exam was unchanged. The rash under her breasts was gone. No new findings. Her lab work showed a WBC of 3.9 with an ANC of 2.9; Hgb 9.6 g/dL; Plt 82,000. Glucose 180 mg/dL. Mag 1.6 mg/dL; albumin 1.8 g/dL. Her low albumin was probably related to her diarrhea,as well as the electrolytes imbalances. She was continued on her anti-diarrhea regimen. She did complete RT to the pancreas on 11/07/20. Next we need to treat her lung cancer. On 11/08/20 Mrs Stafford was seen in her hospital room. She was sitting in the chair. She remained quite weak, unable to reposition her self. She was eating well. She complained about the Metronidazole but was willing to continue to take it. She still had diarrhea. On exam, no new findings. Her lab work showed a fairly Nl UA with no proteins detected. Her WBC was 2.9 with an ANC of 2.0; Hgb 9.1 g/dL; Plt 87,000. Glucose 154 mg/dL; chloride 113 mEq/L. Phosphorus 2.0 mg/dL; mag 1.7 mg/dL; albumin 1.8 g/dL. INR 2.2. No changes were made. I gave her IV Mag and Phosphorus. Since no NH wanted to take her,she will have to stay hospitalized to be able to receive her antibiotics. On 11/18/20 she will be done with RT and could be transferred to [place] in a swing bed to continue with the antibiotics. She waswilling to stay in till 11/18/20. I plan adjuvant chemotherapy for the pancreas after done with RT and antibiotics. Phosphate and mag were replaced IV. She was continued on IV fluids with K replacement.Triple antibiotics were also continued. On 11/09/20 Mrs Stafford was seen in her hospital room. She was quite lethargic. The Nurse told me that she was fine when she returned from RT. But later on she complained of severe pain and received more pain meds. When I saw her around 7 pm she was sleepy but arouseble. She had no pain. She still had diarrhea. No other complaints. Her exam was otherwise unchanged. Her CBC showed a WBC of 3.1 with an ANC of 2.2; hGB 9.3 g/dL; Plt 79,000. Glucose 166 mg/dL;chloride 112 mEq/L. Phosphate 2.8 mg/dL; mag 1.7 mg/dL; albumin 1.8 g/dL. INR 2.2 She did receive 2 g of IV Mag. No other changes. She was continued on triple antibiotic. The plan remained to continue in-patient management until done with RT then transfer to [facility] in [place]. Review of Systems Constitutional: Positive for fatigue. Negative for appetite change, chills, diaphoresis, fever and unexpected weight change. HENT: Positive for hearing loss. Eyes: Negative. Respiratory: Negative. Cardiovascular: Negative. Gastrointestinal: Positive for diarrhea. Endocrine: Negative. Genitourinary: Negative. Musculoskeletal: Positive for back pain. Skin: Positive for wound. Neurological: Positive for extremity weakness. Hematological: Negative. Psychiatric/Behavioral: Negative. Physical / Results Current Vital Signs Temp: 97.2 F (36.2 C) BP: 116/94 Weight: 54.8 kg (120 lb 13 oz) SpO2: 99 % Resp: 18 Pulse: 73 Current BMI (>50 = increased risk): 23.5 O2 Device: Room Air Pain Rating: Other (specify)(unable to assess. off unit) Maximum Temperatures (last 24 hours) Temperature Maximum Max Temp 97.9 F (36.6 C) Intake and Output: 11/08 0700 - 11/09 0659 In: 1382 [Oral:605] Out: 950 [Urine:950] Physical Exam Constitutional: General: She is not in acute distress. Appearance: Normal appearance. She is not ill-appearing, toxic-appearing or diaphoretic. HENT: Head: Normocephalic. Nose: Nose normal. Mouth/Throat: Mouth: Mucous membranes are moist. Pharynx: Oropharynx is clear. No oropharyngeal exudate. Eyes: General: No scleral icterus. Conjunctiva/sclera: Conjunctivae normal. Pupils: Pupils are equal, round, and reactive to light. Neck: Musculoskeletal: Normal range of motion and neck supple. No neck rigidity or muscular tenderness. Vascular: No carotid bruit. Cardiovascular: Rate and Rhythm: Normal rate and regular rhythm. Heart sounds: No murmur. Pulmonary: Effort: Pulmonary effort is normal. Breath sounds: Normal breath sounds. Abdominal: General: Abdomen is flat. Bowel sounds are normal. Palpations: Abdomen is soft. Musculoskeletal: Normal range of motion. General: No swelling or tenderness. Right lower leg: No edema. Left lower leg: No edema. Comments: Distal phalanx of the Rt index finger has been amputated. Lymphadenopathy: Cervical: No cervical adenopathy. Skin: General: Skin is warm and dry. Coloration: Skin is not jaundiced. Findings: Lesion present. No bruising. Neurological: General: No focal deficit present. Mental Status: She is alert. Psychiatric: Mood and Affect: Mood normal. Results for BLAIR STAFFORD ( ) as of 11/10/2020 06:35 Ref. Range 11/09/2020 05:25 WBC Latest Ref Range: 4.0 - 11.0 K/uL 3.1 (L) RBC Latest Ref Range: 3.80 - 5.30 M/uL 3.15 (L) Hemoglobin Latest Ref Range: 11.5 - 15.8 g/dL 9.3 (L) Hematocrit Latest Ref Range: 35.0 - 45.0 % 28.3 (L) MCV Latest Ref Range: 80.0 - 98.0 fL 89.8 MCH Latest Ref Range: 25.5 - 34.0 pg 29.5 MCHC Latest Ref Range: 31.5 - 36.5 g/dL 32.9 RDW-CV Latest Ref Range: 11.5 - 15.5 % 19.9 (H) RDW-SD Latest Ref Range: 35.5 - 50.0 fl 64.7 (H) Platelet Count Latest Ref Range: 140 - 400 K/uL 79 (L) MPV Latest Ref Range: 8.5 - 12.0 fL 12.7 (H) Seg Neut Absolute Latest Ref Range: 1.8 - 8.0 K/uL 2.2 Lymphocytes Absolute Latest Ref Range: 0.8 - 4.1 K/uL 0.3 (L) Monocytes Absolute Latest Ref Range: 0.0 - 1.0 K/uL 0.6 Eosinophils Absolute Latest Ref Range: 0.0 - 0.7 K/uL 0.1 Basophil Absolute Latest Ref Range: 0.0 - 0.2 K/uL 0.0 Immature Granulocyte Absolute Latest Ref Range: 0.00 - 0.06 K/uL 0.02 Neutrophils Percent Latest Units: % 69.0 Neutrophils Abs. (Segs and Bands) Latest Units: /uL 2,200 Lymphocytes Percent Latest Units: % 9.3 Monocytes Percent Latest Units: % 17.9 Immature Granulocyte Percent Latest Units: % 0.6 Eosinophils Percent Latest Units: % 2.9 Basophil Percent Latest Units: % 0.3 Nucleated RBC Latest Units: /100 WBC's 0 Glucose Latest Ref Range: 70 - 100 mg/dL 166 (H) Sodium Latest Ref Range: 135 - 145 meq/L 137 Potassium Latest Ref Range: 3.5 - 5.3 meq/L 3.6 Chloride Latest Ref Range: 99 - 110 meq/L 112 (H) CO2 Latest Ref Range: 20 - 29 meq/L 22 Anion Gap with K Latest Ref Range: 6 - 20 meq/L 7 BUN Latest Ref Range: 6 - 22 mg/dL 9 Creatinine Latest Ref Range: 0.60 - 1.10 mg/dL 0.64 BUN/Creatinine Ratio Latest Ref Range: 10.0 - 25.0 14.1 Calcium Latest Ref Range: 8.5 - 10.5 mg/dL 7.0 (L) Corrected Calcium Latest Ref Range: 8.5 - 10.5 mg/dL 8.8 Phosphorus Latest Ref Range: 2.5 - 4.5 mg/dL 2.8 Magnesium Latest Ref Range: 1.8 - 2.4 mg/dL 1.7 (L) Albumin Latest Ref Range: 3.5 - 5.0 g/dL 1.8 (L) eGFR Latest Ref Range: >=60 mL/min/1.73m2 >90 eGFR Non- Latest Ref Range: >=60 mL/min/1.73m2 89 Protime Latest Ref Range: 12.0 - 14.5 secs 24.2 (H) INR Latest Ref Range: 2.0 - 3.5 2.2 Gertrude Thomas MD - 11/08/2020 7:32 PM CDT Hematology/Oncology Daily Progress Note Blair Stafford is a 80yr old female admitted on 10/18/2020. 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 * Plan: Start SBRT to the Rt lung in am. Continue antibiotics till 12/05/20. Transfer to [facility] Bed when done with RT on 11/18/20. Replace electrolytes IV. Estimated Discharge Date: 11/18/20. HPI / History / ROS HPI Mrs. Stafford is an 80-year-old white female patient who has been followed by me over the years for colon cancer. She also has problems with persistent thromboembolic disease. She is on chronic anticoagulation with warfarin. She was diagnosed recently with stage I lung cancer and a stage I cancer of the pancreas. We decided to approach the cancer of the pancreas first with chemoradiation. She started treatment a couple of weeks ago. Her chemotherapy is capecitabine as a radiosensitizer at a very low dose of 500 mg twice a day. I saw the patient on 10/18/2020 for routine followup. She complained of severe pain of the right 2nd finger. Her fingernail fell off and the tip of the finger fell off as well. The wound did not seem to be infected, but she had cellulitis of the right 2nd finger, and this was excruciatingly painful. She did try to take cephalexin that she had at home, but it did not help. In view of that, plus the fact that she had severe diarrhea, plus the fact that she was dehydrated, I did admit her for IV antibiotics and IV hydration. She also has hypokalemia, hypomagnesemia, hypophosphatemia, and these will need to be replaced intravenously since she is not able to tolerate lotsof oral replacement. I decided to treat her finger cellulitis with Rocephin. She received the 1st dose on 10/18/2020. When seen on 10/19/2020, her right 2nd finger had somewhat improved. I did request a hand surgery consultation, but this has not been done yet. She also has a diabetic ulcer on the right lower extremity, which is being taken care of by the wound nurse. Her lab work on 10/19/2020 showed a white count of 6,000, hemoglobin 11.4, platelet count 94,000. Differential count normal. Chemistries: Glucose 203, sodium 133, potassium 3.0, phosphorus 2.2, magnesium 2.0 after replacement. INR 2.0. I gave her more IV potassium and phosphate. She still has quite severe diarrhea despite taking Lomotil. She takes 2 tablets 4 times a day, which is a high dose, but it seems that that is what she needs to control the diarrhea. Once the diarrhea is controlled, I might go back on capecitabine. The patient is anxious to go home and does not want to stay in the hospital any longer than necessary. I told her that we better give her 5 days of IV antibiotics and try to get her finger in a better shape. Otherwise, if we stop the antibiotic therapy too soon, the cellulitis of the right 2nd finger might flare up again. She agreed to stay to complete her IV antibiotics. On 10/20/20 she had an XR of the Rt hand showing: FINDING: Bony irregularity and/or fracture second digit distal phalanx. Some soft tissue injury changes are also present correlate for recent trauma versus infection. On 10/20/20 Mrs Stafford was seen in her hospital room. She continued to improve. Eating better. The Rt 2nd finger was still hurting. She had a mild cough. The RLE ulcer was dressed. She had an JACQUI bandage around the Rt lower leg. She still had severe diarrhea despite the Lomotil. She had 6 BM's today.She did continue with the RT. Her exam was basically unchanged. Her lab work showed a WBC of 5.0 with an ANC of 4.0; Hgb 11.9 g/dL; Plt 104,000. Glucose 157 mg/dL; phosphorus 1.8 mg/dL; mag 1.5 mg/dL. Albumin 2.2 g/dL. Other chemistries were WNL. She still had evidence of protein/caloric malnutrition.The dietitian was consulted. She did receive her RT today. She requested to add Imodium to her Lomotil. I did order it. Awaiting opinion from hand surgery. For now,I continued Rocephin and replaced herelectrolytes IV. 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 He recommended amputation. The Pt declined. She said that she wanted to complete her RT first.ID consult was requested. On 10/21/20 she had a CXR showing: FINDINGS/IMPRESSION: The cardiac silhouette is normal in size. There is calcified atherosclerosis of the thoracic aorta. There is a 1.3 cm nodular opacity within the mid right lung which likely corresponds with the hypermetabolic nodule in the periphery of the right upper lobe on the prior PET/CT from 07/27/2020. No additional pulmonary nodules are identified. No focal airspace consolidation. No pneumothorax or pleural effusion. On 10/21/20 she was seen by Dr Burgos from ID. He did change the antibiotic to a combination of Cefepime/Metronidazole/Vancomycin. He felt that she should have surgery soon. On 10/21/20 I saw Mrs Stafford in her hospital room. She was feeling fairly well. Her diarrhea had improved. But she was not eating much. Her pain was at an acceptable level. Her exam was unchanged. I explained to her that she needed surgery soon. She agreed to have it done. I'll let Dr Casas know. Hope to have her surgery next week and resume her radiosensitizing chemotherapy. RT can continue since it has no effect on the finger.Her electrolytes were replaced IV. Her CXR was reviewed and felt unchanged. She had her Rt distal index finger amputated by Dr Casas on 10/24/20. She tolearted the procedure well. On 10/24/20 Mrs Stafford was seen in her hospital room after the amputation. She had no pain. She was started on Octreotide by Dr Maldonado this week-end. This seemed to have helped some. Her appetite remained good. She did receive her RT. Her exam was unchanged. Her Plt count was 97,000. Otherwise the CBC was unremarkable. Her chemistries were close to Nl. Phosphorus was 2.1 mg/dL; Albumin was 2.1 g/dL. Her INR was 2.4 and was reverted with FFP for the procedure. Continue antibiotics for now and check with ID. Continue daily RT. Resume Capecitabine in a few days. On 10/25/20 Mrs Stafford was seen in her hospital room. She had pain in the amputated finger. Her diarrhea had improved since on Octreotide. Eating well. Tolerating the RT well. Her exam was unchanged except for the amputated finger. Her CBC showed a WBC of 3.8 with an ANC of 2.8; Hgb 11.0 g/dL; Plt 74,000. Glucose 230 mg/dL; sodium 134 mEq/L. Phosphate 1.9 mg/dL; mag 2.0 mg/dL. Other values were Nl. Mag and phosphate were replaced.Antibiotics per ID. Await cultures and pathology. On 10/27/20 Mrs Stafford was seen in her hospital room. She said that on 10/26/20 she was very weak. Shefelt a little better on 10/27/20. She continued to have diarrhea. She continued to eat well. Her exam was unchanged. The amputated finger stump was dressed. The surgeon examined it and was satisfied withthe healing. Her exam was unchanged. Her lab work showed a WBC of 4.6 with an ANC of 3.5; Hgb 11.0 g/dL; Plt 58,000. Glucose 215 mg/dL; chloride 111 mEq/L. Phosphorus 1.3 mg/dL; mag 1.4 mg/dL; albumin 1.9 g/dL. She will need mag and phosphate replacements. In view of the thrombocytopenia, most likely caused by Vancomycin, I was not able to resume the Capecitabine. Continue daily monitoring of her counts and chemistries. On 10/28/20 Mrs Stafford was seen in her hospital room. She complained of extreme fatigue. She was eating well. Her legs remained weak. Her cough has resolved since she quit the nicotine patches. Her diarrhea did improve with the current regimen. She did receive her RT today. On exam, the Rt index finger stump was dressed. Her pain was acceptable. Her lab work showed a WBC of 7.3 with an ANC of 5.8; Hgb 11.5 g/dL; Plt 63,000. Phosphorus was 1.3 mg/dL;mag was 1.3 mg/dL; albumin was 2.0 g/dL. Other values were Nl. I did review Dr Burgos's recommendations for antibiotic therapy. He recommended to continue Cefepime/Vanco/Metronidazole while in the hospital. At discharge,he recommends Ertapenem and Daptomycin. The duration of treatment will depend on the pathology. Dr Burgos will see her out-patient in 1-2 weeks to decide. She may need antibiotics till 12/05/20. She will require weakly lab work. The Pt was not interested in the [facility] bed. She could not go home due to the cost of the antibiotics. The best might be a TCU in [place] and get the antibiotics out- patient at the . Will discuss with the bottle caser Saturday. Since her Plt count has not recovered yet, I am holding the Capecitabine. Will continue daily labs and daily electrolytes replacement. On 10/31/20 Mrs Stafford was seen in her hospital room. She still had severe diarrhea during the week-end. Her Lomotil was increased with some decrease in the diarrhea. No pain. Her exam was unchanged. Her CBC showed a WBC of 5.9 with an ANC of 4.7; Hgb 10.7 g/dL; Plt 69,000. Glucose 121 mg/dL; [id number] mEq/L. Phosphorus 1.4 mg/dL; mag 1.7 mg/dL; albumin 1.9 g/dL. She received IV Mag and phosphate.As long as she has diarrhea, we need to keep her on IV fluids. If the diarrhea improves,she could goto a TCU and continue RT. If this does not work, she may need to go to [place] in a swing bed. On 11/01/20 Mrs Stafford was seen in her hospital room. She was sitting at the edge of the bed eating.She had a good appetite. No new complaints. The diarrhea was better. She only had 3 BM's by 7 pm. Her exam was unchanged. I did call the pathology lab. They are 1 week behind due to their move. Hope toget the pathology back in 2-3 days. Her lab work remained stable. Her WBC was 5.0 with an ANC of 3.8; Hgb 10.5 g/dL; Plt 72,000. Glucose 196 mg/dL; phosphorus 2.2 mg/dL and mag 1.5 mg/dL;Albumin 1.9 g/dL; LFT's unremarkable. Other chemistries were Nl. She received IV phosphate and mag. She was continued on RT. The Capecitabine continued to be held mainly due to her thrombocytopenia. On 11/02/20 Mrs Stafford was seen in her hospital room. She was feeling cold after coming back from the RT. She had no fever. She had still quite severe diarrhea.C diff was neg. Her exam was unchanged. Her lab work showed a WBC of 4.6; ANC 3.4; Hgb 9.3 g/dL; Plt 81,000. Glucose 196 mg/dL; phosphorus 2.2 mg/dL; mag 1.5 mg/dL; albumin 1.8 g/dL. Dietitian was working on her nutrition. Mag and phosphate were replaced IV. No chemo since her Plt count was still low and she was almost done with RT. Await placement. Pt too complex for a NH and did not want daily transfers from [place] where a swing bed was available.To continue RT as ordered. On 11/03/20 Mrs Stafford was seen in her hospital room. She continued to have diarrhea. She continuedto require electrolytes IV replacement. She had some back pain. Eating well. Her exam was unchanged.Her CBC showed a WBC of 4.1 with an ANC of 3.2; Hgb 9.8 and Plt 69,000. Glucose was 302 mg/dL; sodium 133 mEq/L. Phosphate 2.2 mg/dL; mag 1.4 mg/dL; albumin 1.8 g/dL. Electrolyte IV replacement was ordered. We discussed placement. She did not really want to go to [place]. Nevertheless,I feel that [facility] swing bed would be the best for her in view of her complexity. [place]. To be discussed with the bottle caser. On 11/04/20 the PICC line did not function properly and had to be replaced. This was done by IR. On 11/04/20 Mrs Stafford was seen in her hospital room. She felt chilly after coming back from andRT. She had no fever. Still having diarrhea. No other complaints. Her exam was unchanged. Her lab work showed a WBC of 3.7 with an ANC of 2.7; Hgb 9.5 g/dL; Plt 81,000. Glucose 304 mg/dL; sodium 134 mEq/L. Albumin 1.8 g/dL. Other values from the chemistry panel were WNL. I continued her IV fluids and anti-diarrheals. Placement will be a problem since [facility] cannot provide transportation for RT. They are willing to take the Pt when done with RT. On 11/05/20 Mrs Stafford was seen in her hospital room for re-evaluation of her cancers and osteomyelitis. She complained of redness,itchiness of the skin under the breasts and in the lower abd. She felt that it was a yeast infection an asked for Nystatin powder. I agreed with her and prescribed the Nystatin powder.She also was wondering when her stiches will come out Dr Casas said 2 weeks. On exam, the only change was redness under the breasts and in skin folds in the lower abdomen. Her lab work showed a WBC of 3.5 with an ANC of 2.6;Hgb 10.1 g/dL. Plt 81,000. Glucose 208 mg/dL; chloride 113 mEq/L; phosphorus 1.9 mg/dL; mag 1.4 mg/dL and albumin 1.9 g/dL. INR 2.2. She was continued on the same antibiotics. I told her that I would contact Dr Casas for the suture removal. On 11/06/20 Mrs Stafford was seen in her hospital room. She continued to have diarrhea. She had the sutures from her Rt index finger removed by Dr Casas. She complained of severe discomfort when going down for RT. She requested a pain med before her RT. I did prescribe hydromorphone. She was continuedon her current regimen of anti-diarrheals. Her exam was unchanged. The rash under the breasts had improved. She felt some burning under the breasts. I reassured her that the rash was improving. Her labwork showed a WBC of 3.6 with an ANC of 2.6; Hgb 10.0 g/dL; Plt 89,000. Glucose 251 mg/dL; sodium 134 mEq/L. Phosphorus 2.2 mg/dL; mag 1.5 mg/dL. Albumin 1.9 g/dL. INR 2.1. Electrolytes replacement was ordered. On 11/07/20 Mrs Stafford was seen in her hospital room. She continued to complain of diarrhea. Her skin rash was gone. She had Hydromorphone before RT today and did better with no pain. We are waiting the start of lung SBRT. No NH wants to take her before completion of the RT. Her exam was unchanged. The rash under her breasts was gone. No new findings. Her lab work showed a WBC of 3.9 with an ANC of 2.9; Hgb 9.6 g/dL; Plt 82,000. Glucose 180 mg/dL. Mag 1.6 mg/dL; albumin 1.8 g/dL. Her low albumin was probably related to her diarrhea,as well as the electrolytes imbalances. She was continued on her anti-diarrhea regimen. She did complete RT to the pancreas on 11/07/20. Next we need to treat her lung cancer. On 11/08/20 Mrs Stafford was seen in her hospital room. She was sitting in the chair. She remained quite weak, unable to reposition her self. She was eating well. She complained about the Metronidazole but was willing to continue to take it. She still had diarrhea. On exam, no new findings. Her lab work showed a fairly Nl UA with no proteins detected. Her WBC was 2.9 with an ANC of 2.0; Hgb 9.1 g/dL; Plt 87,000. Glucose 154 mg/dL; chloride 113 mEq/L. Phosphorus 2.0 mg/dL; mag 1.7 mg/dL; albumin 1.8 g/dL. INR 2.2. No changes were made. I gave her IV Mag and Phosphorus. Since no NH wanted to take her,she will have to stay hospitalized to be able to receive her antibiotics. On 11/18/20 she will be done with RT and could be transferred to [place] in a swing bed to continue with the antibiotics. She waswilling to stay in till 11/18/20. I plan adjuvant chemotherapy for the pancreas after done with RT and antibiotics. Phosphate and mag were replaced IV. She was continued on IV fluids with K replacement.Triple antibiotics were also continued. Review of Systems Constitutional: Positive for fatigue. Negative for appetite change, chills, diaphoresis, fever and unexpected weight change. HENT: Positive for hearing loss. Eyes: Negative. Respiratory: Negative. Cardiovascular: Negative. Gastrointestinal: Positive for diarrhea. Endocrine: Negative. Genitourinary: Negative. Musculoskeletal: Positive for back pain (When she lies on the RT table.). Skin: Positive for wound. Negative for itching and rash. Neurological: Positive for extremity weakness. Hematological: Negative. Psychiatric/Behavioral: Negative. Physical / Results Current Vital Signs Temp: 97.4 F (36.3 C) BP: 116/65 Weight: 53.2 kg (117 lb 4.6 oz) SpO2: 92 % Resp: 16 Pulse: 91 Current BMI (>50 = increased risk): 23.5 O2 Device: Room Air Pain Ratin Maximum Temperatures (last 24 hours) Temperature Maximum Max Temp 97.4 F (36.3 C) Intake and Output: 11/07 0700 - 11/08 0659 In: 1803 [Oral:360] Out: 901 [Urine:900] Physical Exam Constitutional: General: She is not in acute distress. Appearance: Normal appearance. She is not ill-appearing, toxic-appearing or diaphoretic. HENT: Head: Normocephalic. Nose: Nose normal. Mouth/Throat: Mouth: Mucous membranes are moist. Pharynx: Oropharynx is clear. No oropharyngeal exudate. Eyes: General: No scleral icterus. Conjunctiva/sclera: Conjunctivae normal. Pupils: Pupils are equal, round, and reactive to light. Neck: Musculoskeletal: Normal range of motion. Cardiovascular: Rate and Rhythm: Normal rate and regular rhythm. Heart sounds: No murmur. Pulmonary: Effort: Pulmonary effort is normal. Breath sounds: Normal breath sounds. Abdominal: General: Abdomen is flat. Bowel sounds are normal. Palpations: Abdomen is soft. Hernia: A hernia is present. Musculoskeletal: Normal range of motion. General: No swelling. Right lower leg: No edema. Left lower leg: No edema. Comments: Distal phalanx of the Rt index finger has been amputated. Skin: General: Skin is warm. Coloration: Skin is not jaundiced. Findings: Lesion present. Neurological: General: No focal deficit present. Mental Status: She is alert. Psychiatric: Mood and Affect: Mood normal. Results for BLAIR STAFFORD ( ) as of 11/08/2020 19:38 Ref. Range 11/08/2020 04:30 WBC Latest Ref Range: 4.0 - 11.0 K/uL 2.9 (L) RBC Latest Ref Range: 3.80 - 5.30 M/uL 3.19 (L) Hemoglobin Latest Ref Range: 11.5 - 15.8 g/dL 9.1 (L) Hematocrit Latest Ref Range: 35.0 - 45.0 % 28.4 (L) MCV Latest Ref Range: 80.0 - 98.0 fL 89.0 MCH Latest Ref Range: 25.5 - 34.0 pg 28.5 MCHC Latest Ref Range: 31.5 - 36.5 g/dL 32.0 RDW-CV Latest Ref Range: 11.5 - 15.5 % 19.7 (H) RDW-SD Latest Ref Range: 35.5 - 50.0 fl 63.6 (H) Platelet Count Latest Ref Range: 140 - 400 K/uL 87 (L) MPV Latest Ref Range: 8.5 - 12.0 fL 12.1 (H) Seg Neut Absolute Latest Ref Range: 1.8 - 8.0 K/uL 2.0 Lymphocytes Absolute Latest Ref Range: 0.8 - 4.1 K/uL 0.3 (L) Monocytes Absolute Latest Ref Range: 0.0 - 1.0 K/uL 0.5 Eosinophils Absolute Latest Ref Range: 0.0 - 0.7 K/uL 0.1 Basophil Absolute Latest Ref Range: 0.0 - 0.2 K/uL 0.0 Immature Granulocyte Absolute Latest Ref Range: 0.00 - 0.06 K/uL 0.03 Neutrophils Percent Latest Units: % 68.8 Neutrophils Abs. (Segs and Bands) Latest Units: /uL 2,000 Lymphocytes Percent Latest Units: % 9.5 Monocytes Percent Latest Units: % 16.3 Immature Granulocyte Percent Latest Units: % 1.0 Eosinophils Percent Latest Units: % 4.1 Basophil Percent Latest Units: % 0.3 Nucleated RBC Latest Units: /100 WBC's 0 Glucose Latest Ref Range: 70 - 100 mg/dL 154 (H) Sodium Latest Ref Range: 135 - 145 meq/L 137 Potassium Latest Ref Range: 3.5 - 5.3 meq/L 4.1 Chloride Latest Ref Range: 99 - 110 meq/L 113 (H) CO2 Latest Ref Range: 20 - 29 meq/L 20 Anion Gap with K Latest Ref Range: 6 - 20 meq/L 8 BUN Latest Ref Range: 6 - 22 mg/dL 9 Creatinine Latest Ref Range: 0.60 - 1.10 mg/dL 0.60 BUN/Creatinine Ratio Latest Ref Range: 10.0 - 25.0 15.0 Calcium Latest Ref Range: 8.5 - 10.5 mg/dL 7.1 (L) Corrected Calcium Latest Ref Range: 8.5 - 10.5 mg/dL 8.9 Phosphorus Latest Ref Range: 2.5 - 4.5 mg/dL 2.0 (L) Magnesium Latest Ref Range: 1.8 - 2.4 mg/dL 1.7 (L) Albumin Latest Ref Range: 3.5 - 5.0 g/dL 1.8 (L) eGFR Latest Ref Range: >=60 mL/min/1.73m2 >90 eGFR Non- Latest Ref Range: >=60 mL/min/1.73m2 >90 Protime Latest Ref Range: 12.0 - 14.5 secs 24.6 (H) INR Latest Ref Range: 2.0 - 3.5 2.2 Gertrude Thomas MD - 11/07/2020 7:30 PM CDT Hematology/Oncology Daily Progress Note Blair Stafford is a 80yr old female admitted on 10/18/2020. 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 * Plan: Continue antibiotics per ID. Lung SBRT to start [facility]. Placement after RT is done for completion of her antibiotic therapy. Adjuvant chemo for cancer of the pancreas when done with lung SBRT. Replace electrolytes IV. HPI / History / ROS HPI Mrs. Stafford is an 80-year-old white female patient who has been followed by me over the years for colon cancer. She also has problems with persistent thromboembolic disease. She is on chronic anticoagulation with warfarin. She was diagnosed recently with stage I lung cancer and a stage I cancer of the pancreas. We decided to approach the cancer of the pancreas first with chemoradiation. She started treatment a couple of weeks ago. Her chemotherapy is capecitabine as a radiosensitizer at a very low dose of 500 mg twice a day. I saw the patient on 10/18/2020 for routine followup. She complained of severe pain of the right 2nd finger. Her fingernail fell off and the tip of the finger fell off as well. The wound did not seem to be infected, but she had cellulitis of the right 2nd finger, and this was excruciatingly painful. She did try to take cephalexin that she had at home, but it did not help. In view of that, plus the fact that she had severe diarrhea, plus the fact that she was dehydrated, I did admit her for IV antibiotics and IV hydration. She also has hypokalemia, hypomagnesemia, hypophosphatemia, and these will need to be replaced intravenously since she is not able to tolerate lotsof oral replacement. I decided to treat her finger cellulitis with Rocephin. She received the 1st dose on 10/18/2020. When seen on 10/19/2020, her right 2nd finger had somewhat improved. I did request a hand surgery consultation, but this has not been done yet. She also has a diabetic ulcer on the right lower extremity, which is being taken care of by the wound nurse. Her lab work on 10/19/2020 showed a white count of 6,000, hemoglobin 11.4, platelet count 94,000. Differential count normal. Chemistries: Glucose 203, sodium 133, potassium 3.0, phosphorus 2.2, magnesium 2.0 after replacement. INR 2.0. I gave her more IV potassium and phosphate. She still has quite severe diarrhea despite taking Lomotil. She takes 2 tablets 4 times a day, which is a high dose, but it seems that that is what she needs to control the diarrhea. Once the diarrhea is controlled, I might go back on capecitabine. The patient is anxious to go home and does not want to stay in the hospital any longer than necessary. I told her that we better give her 5 days of IV antibiotics and try to get her finger in a better shape. Otherwise, if we stop the antibiotic therapy too soon, the cellulitis of the right 2nd finger might flare up again. She agreed to stay to complete her IV antibiotics. On 10/20/20 she had an XR of the Rt hand showing: FINDING: Bony irregularity and/or fracture second digit distal phalanx. Some soft tissue injury changes are also present correlate for recent trauma versus infection. On 10/20/20 Mrs Stafford was seen in her hospital room. She continued to improve. Eating better. The Rt 2nd finger was still hurting. She had a mild cough. The RLE ulcer was dressed. She had an JACQUI bandage around the Rt lower leg. She still had severe diarrhea despite the Lomotil. She had 6 BM's today.She did continue with the RT. Her exam was basically unchanged. Her lab work showed a WBC of 5.0 with an ANC of 4.0; Hgb 11.9 g/dL; Plt 104,000. Glucose 157 mg/dL; phosphorus 1.8 mg/dL; mag 1.5 mg/dL. Albumin 2.2 g/dL. Other chemistries were WNL. She still had evidence of protein/caloric malnutrition.The dietitian was consulted. She did receive her RT today. She requested to add Imodium to her Lomotil. I did order it. Awaiting opinion from hand surgery. For now,I continued Rocephin and replaced herelectrolytes IV. 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 He recommended amputation. The Pt declined. She said that she wanted to complete her RT first.ID consult was requested. On 10/21/20 she had a CXR showing: FINDINGS/IMPRESSION: The cardiac silhouette is normal in size. There is calcified atherosclerosis of the thoracic aorta. There is a 1.3 cm nodular opacity within the mid right lung which likely corresponds with the hypermetabolic nodule in the periphery of the right upper lobe on the prior PET/CT from 07/27/2020. No additional pulmonary nodules are identified. No focal airspace consolidation. No pneumothorax or pleural effusion. On 10/21/20 she was seen by Dr Burgos from ID. He did change the antibiotic to a combination of Cefepime/Metronidazole/Vancomycin. He felt that she should have surgery soon. On 10/21/20 I saw Mrs Stafford in her hospital room. She was feeling fairly well. Her diarrhea had improved. But she was not eating much. Her pain was at an acceptable level. Her exam was unchanged. I explained to her that she needed surgery soon. She agreed to have it done. I'll let Dr Casas know. Hope to have her surgery next week and resume her radiosensitizing chemotherapy. RT can continue since it has no effect on the finger.Her electrolytes were replaced IV. Her CXR was reviewed and felt unchanged. She had her Rt distal index finger amputated by Dr Casas on 10/24/20. She tolearted the procedure well. On 10/24/20 Mrs Stafford was seen in her hospital room after the amputation. She had no pain. She was started on Octreotide by Dr Maldonado this week-end. This seemed to have helped some. Her appetite remained good. She did receive her RT. Her exam was unchanged. Her Plt count was 97,000. Otherwise the CBC was unremarkable. Her chemistries were close to Nl. Phosphorus was 2.1 mg/dL; Albumin was 2.1 g/dL. Her INR was 2.4 and was reverted with FFP for the procedure. Continue antibiotics for now and check with ID. Continue daily RT. Resume Capecitabine in a few days. On 10/25/20 Mrs Stafford was seen in her hospital room. She had pain in the amputated finger. Her diarrhea had improved since on Octreotide. Eating well. Tolerating the RT well. Her exam was unchanged except for the amputated finger. Her CBC showed a WBC of 3.8 with an ANC of 2.8; Hgb 11.0 g/dL; Plt 74,000. Glucose 230 mg/dL; sodium 134 mEq/L. Phosphate 1.9 mg/dL; mag 2.0 mg/dL. Other values were Nl. Mag and phosphate were replaced.Antibiotics per ID. Await cultures and pathology. On 10/27/20 Mrs Stafford was seen in her hospital room. She said that on 10/26/20 she was very weak. Shefelt a little better on 10/27/20. She continued to have diarrhea. She continued to eat well. Her exam was unchanged. The amputated finger stump was dressed. The surgeon examined it and was satisfied withthe healing. Her exam was unchanged. Her lab work showed a WBC of 4.6 with an ANC of 3.5; Hgb 11.0 g/dL; Plt 58,000. Glucose 215 mg/dL; chloride 111 mEq/L. Phosphorus 1.3 mg/dL; mag 1.4 mg/dL; albumin 1.9 g/dL. She will need mag and phosphate replacements. In view of the thrombocytopenia, most likely caused by Vancomycin, I was not able to resume the Capecitabine. Continue daily monitoring of her counts and chemistries. On 10/28/20 Mrs Stafford was seen in her hospital room. She complained of extreme fatigue. She was eating well. Her legs remained weak. Her cough has resolved since she quit the nicotine patches. Her diarrhea did improve with the current regimen. She did receive her RT today. On exam, the Rt index finger stump was dressed. Her pain was acceptable. Her lab work showed a WBC of 7.3 with an ANC of 5.8; Hgb 11.5 g/dL; Plt 63,000. Phosphorus was 1.3 mg/dL;mag was 1.3 mg/dL; albumin was 2.0 g/dL. Other values were Nl. I did review Dr Burgos's recommendations for antibiotic therapy. He recommended to continue Cefepime/Vanco/Metronidazole while in the hospital. At discharge,he recommends Ertapenem and Daptomycin. The duration of treatment will depend on the pathology. Dr Bugros will see her out-patient in 1-2 weeks to decide. She may need antibiotics till 12/05/20. She will require weakly lab work. The Pt was not interested in the [facility] swing bed. She could not go home due to the cost of the antibiotics. The best might be a TCU in [place] and get the antibiotics out- patient at the . Will discuss with the bottle caser Saturday. Since her Plt count has not recovered yet, I am holding the Capecitabine. Will continue daily labs and daily electrolytes replacement. On 10/31/20 Mrs Stafford was seen in her hospital room. She still had severe diarrhea during the week-end. Her Lomotil was increased with some decrease in the diarrhea. No pain. Her exam was unchanged. Her CBC showed a WBC of 5.9 with an ANC of 4.7; Hgb 10.7 g/dL; Plt 69,000. Glucose 121 mg/dL; [id number] mEq/L. Phosphorus 1.4 mg/dL; mag 1.7 mg/dL; albumin 1.9 g/dL. She received IV Mag and phosphate.As long as she has diarrhea, we need to keep her on IV fluids. If the diarrhea improves,she could goto a TCU and continue RT. If this does not work, she may need to go to [place] in a swing bed. On 11/01/20 Mrs Stafford was seen in her hospital room. She was sitting at the edge of the bed eating.She had a good appetite. No new complaints. The diarrhea was better. She only had 3 BM's by 7 pm. Her exam was unchanged. I did call the pathology lab. They are 1 week behind due to their move. Hope toget the pathology back in 2-3 days. Her lab work remained stable. Her WBC was 5.0 with an ANC of 3.8; Hgb 10.5 g/dL; Plt 72,000. Glucose 196 mg/dL; phosphorus 2.2 mg/dL and mag 1.5 mg/dL;Albumin 1.9 g/dL; LFT's unremarkable. Other chemistries were Nl. She received IV phosphate and mag. She was continued on RT. The Capecitabine continued to be held mainly due to her thrombocytopenia. On 11/02/20 Mrs Stafford was seen in her hospital room. She was feeling cold after coming back from the RT. She had no fever. She had still quite severe diarrhea.C diff was neg. Her exam was unchanged. Her lab work showed a WBC of 4.6; ANC 3.4; Hgb 9.3 g/dL; Plt 81,000. Glucose 196 mg/dL; phosphorus 2.2 mg/dL; mag 1.5 mg/dL; albumin 1.8 g/dL. Dietitian was working on her nutrition. Mag and phosphate were replaced IV. No chemo since her Plt count was still low and she was almost done with RT. Await placement. Pt too complex for a NH and did not want daily transfers from [place] where a swing bed was available.To continue RT as ordered. On 11/03/20 Mrs Stafford was seen in her hospital room. She continued to have diarrhea. She continuedto require electrolytes IV replacement. She had some back pain. Eating well. Her exam was unchanged.Her CBC showed a WBC of 4.1 with an ANC of 3.2; Hgb 9.8 and Plt 69,000. Glucose was 302 mg/dL; sodium 133 mEq/L. Phosphate 2.2 mg/dL; mag 1.4 mg/dL; albumin 1.8 g/dL. Electrolyte IV replacement was ordered. We discussed placement. She did not really want to go to [place]. Nevertheless,I feel that [facility] swing bed would be the best for her in view of her complexity. [place] To be discussed with the bottle caser. On 11/04/20 the PICC line did not function properly and had to be replaced. This was done by IR. On 11/04/20 Mrs Stafford was seen in her hospital room. She felt chilly after coming back from andRT. She had no fever. Still having diarrhea. No other complaints. Her exam was unchanged. Her lab work showed a WBC of 3.7 with an ANC of 2.7; Hgb 9.5 g/dL; Plt 81,000. Glucose 304 mg/dL; sodium 134 mEq/L. Albumin 1.8 g/dL. Other values from the chemistry panel were WNL. I continued her IV fluids and anti-diarrheals. Placement will be a problem since [facility] cannot provide transportation for RT. They are willing to take the Pt when done with RT. On 11/05/20 Mrs Stafford was seen in her hospital room for re-evaluation of her cancers and osteomyelitis. She complained of redness,itchiness of the skin under the breasts and in the lower abd. She felt that it was a yeast infection an asked for Nystatin powder. I agreed with her and prescribed the Nystatin powder.She also was wondering when her stiches will come out Dr Casas said 2 weeks. On exam, the only change was redness under the breasts and in skin folds in the lower abdomen. Her lab work showed a WBC of 3.5 with an ANC of 2.6;Hgb 10.1 g/dL. Plt 81,000. Glucose 208 mg/dL; chloride 113 mEq/L; phosphorus 1.9 mg/dL; mag 1.4 mg/dL and albumin 1.9 g/dL. INR 2.2. She was continued on the same antibiotics. I told her that I would contact Dr Casas for the suture removal. On 11/06/20 Mrs Stafford was seen in her hospital room. She continued to have diarrhea. She had the sutures from her Rt index finger removed by Dr Casas. She complained of severe discomfort when going down for RT. She requested a pain med before her RT. I did prescribe hydromorphone. She was continuedon her current regimen of anti-diarrheals. Her exam was unchanged. The rash under the breasts had improved. She felt some burning under the breasts. I reassured her that the rash was improving. Her labwork showed a WBC of 3.6 with an ANC of 2.6; Hgb 10.0 g/dL; Plt 89,000. Glucose 251 mg/dL; sodium 134 mEq/L. Phosphorus 2.2 mg/dL; mag 1.5 mg/dL. Albumin 1.9 g/dL. INR 2.1. Electrolytes replacement was ordered. On 11/07/20 Mrs Stafford was seen in her hospital room. She continued to complain of diarrhea. Her skin rash was gone. She had Hydromorphone before RT today and did better with no pain. We are waiting the start of lung SBRT. No NH wants to take her before completion of the RT. Her exam was unchanged. The rash under her breasts was gone. No new findings. Her lab work showed a WBC of 3.9 with an ANC of 2.9; Hgb 9.6 g/dL; Plt 82,000. Glucose 180 mg/dL. Mag 1.6 mg/dL; albumin 1.8 g/dL. Her low albumin was probably related to her diarrhea,as well as the electrolytes imbalances. She was continued on her anti-diarrhea regimen. She did complete RT to the pancreas on 11/07/20. Next we need to treat her lung cancer. Review of Systems Constitutional: Positive for fatigue. Negative for appetite change, chills, diaphoresis, fever and unexpected weight change. HENT: Positive for hearing loss. Eyes: Negative. Respiratory: Negative. Cardiovascular: Negative. Gastrointestinal: Positive for diarrhea. Endocrine: Negative. Genitourinary: Negative. Musculoskeletal: Positive for back pain (When going for RT.). Skin: Positive for wound. Negative for itching and rash. Neurological: Positive for extremity weakness. Hematological: Negative. Psychiatric/Behavioral: Negative. Physical / Results Current Vital Signs Temp: 97.3 F (36.3 C) BP: 99/63 Weight: 53.6 kg (118 lb 1.6 oz) SpO2: 100 % Resp: 16 Pulse: 94 Current BMI (>50 = increased risk): 23.5 O2 Device: Room Air Pain Ratin Maximum Temperatures (last 24 hours) Temperature Maximum Max Temp 97.8 F (36.6 C) Intake and Output: 11/06 0700 - 11/07 0659 In: 2590 [Oral:650] Out: 400 [Urine:400] Physical Exam Constitutional: General: She is not in acute distress. Appearance: Normal appearance. She is not ill-appearing, toxic-appearing or diaphoretic. HENT: Head: Normocephalic. Nose: Nose normal. Mouth/Throat: Mouth: Mucous membranes are moist. Pharynx: Oropharynx is clear. No oropharyngeal exudate. Eyes: General: No scleral icterus. Conjunctiva/sclera: Conjunctivae normal. Pupils: Pupils are equal, round, and reactive to light. Neck: Musculoskeletal: Normal range of motion and neck supple. Cardiovascular: Rate and Rhythm: Normal rate and regular rhythm. Heart sounds: No murmur. Pulmonary: Effort: Pulmonary effort is normal. Breath sounds: Normal breath sounds. Abdominal: General: Abdomen is flat. Bowel sounds are normal. Palpations: Abdomen is soft. Hernia: A hernia is present. Musculoskeletal: Normal range of motion. Right lower leg: No edema. Left lower leg: No edema. Comments: Distal phlanx of Rt index finger has been amputated. Skin: General: Skin is warm and dry. Coloration: Skin is not jaundiced or pale. Findings: Lesion present. No bruising or erythema. Neurological: General: No focal deficit present. Mental Status: She is alert. Psychiatric: Mood and Affect: Mood normal. Results for BLAIR STAFFORD ( ) as of 11/07/2020 19:36 Ref. Range 11/07/2020 06:25 WBC Latest Ref Range: 4.0 - 11.0 K/uL 3.9 (L) RBC Latest Ref Range: 3.80 - 5.30 M/uL 3.26 (L) Hemoglobin Latest Ref Range: 11.5 - 15.8 g/dL 9.6 (L) Hematocrit Latest Ref Range: 35.0 - 45.0 % 29.0 (L) MCV Latest Ref Range: 80.0 - 98.0 fL 89.0 MCH Latest Ref Range: 25.5 - 34.0 pg 29.4 MCHC Latest Ref Range: 31.5 - 36.5 g/dL 33.1 RDW-CV Latest Ref Range: 11.5 - 15.5 % 19.5 (H) RDW-SD Latest Ref Range: 35.5 - 50.0 fl 63.1 (H) Platelet Count Latest Ref Range: 140 - 400 K/uL 82 (L) MPV Latest Ref Range: 8.5 - 12.0 fL 13.0 (H) Seg Neut Absolute Latest Ref Range: 1.8 - 8.0 K/uL 2.9 Lymphocytes Absolute Latest Ref Range: 0.8 - 4.1 K/uL 0.3 (L) Monocytes Absolute Latest Ref Range: 0.0 - 1.0 K/uL 0.6 Eosinophils Absolute Latest Ref Range: 0.0 - 0.7 K/uL 0.1 Basophil Absolute Latest Ref Range: 0.0 - 0.2 K/uL 0.0 Immature Granulocyte Absolute Latest Ref Range: 0.00 - 0.06 K/uL 0.04 Neutrophils Percent Latest Units: % 72.9 Neutrophils Abs. (Segs and Bands) Latest Units: /uL 2,900 Lymphocytes Percent Latest Units: % 7.4 Monocytes Percent Latest Units: % 15.1 Immature Granulocyte Percent Latest Units: % 1.0 Eosinophils Percent Latest Units: % 3.1 Basophil Percent Latest Units: % 0.5 Nucleated RBC Latest Units: /100 WBC's 0 Glucose Latest Ref Range: 70 - 100 mg/dL 180 (H) Sodium Latest Ref Range: 135 - 145 meq/L 135 Potassium Latest Ref Range: 3.5 - 5.3 meq/L 4.7 Chloride Latest Ref Range: 99 - 110 meq/L 110 CO2 Latest Ref Range: 20 - 29 meq/L 22 Anion Gap with K Latest Ref Range: 6 - 20 meq/L 8 BUN Latest Ref Range: 6 - 22 mg/dL 9 Creatinine Latest Ref Range: 0.60 - 1.10 mg/dL 0.64 BUN/Creatinine Ratio Latest Ref Range: 10.0 - 25.0 14.1 Calcium Latest Ref Range: 8.5 - 10.5 mg/dL 7.1 (L) Corrected Calcium Latest Ref Range: 8.5 - 10.5 mg/dL 8.9 Phosphorus Latest Ref Range: 2.5 - 4.5 mg/dL 2.7 Magnesium Latest Ref Range: 1.8 - 2.4 mg/dL 1.6 (L) Albumin Latest Ref Range: 3.5 - 5.0 g/dL 1.8 (L) eGFR Latest Ref Range: >=60 mL/min/1.73m2 >90 eGFR Non- Latest Ref Range: >=60 mL/min/1.73m2 89 Protime Latest Ref Range: 12.0 - 14.5 secs 24.3 (H) INR Latest Ref Range: 2.0 - 3.5 2.2 Gertrude Thomas MD - 11/06/2020 3:50 PM CDT Hematology/Oncology Daily Progress Note Blair Staffrod is a 80yr old female admitted on 10/18/2020. 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 * Plan: Last RT to the pancreas in am. RT to the lung as soon as possible. Consider adjuvant chemo for cancer of the pancreas when recovered. Continue antibiotics till 12/05/20. Placement. Replace electrolytes IV. HPI / History / ROS HPI Mrs. Stafford is an 80-year-old white female patient who has been followed by me over the years for colon cancer. She also has problems with persistent thromboembolic disease. She is on chronic anticoagulation with warfarin. She was diagnosed recently with stage I lung cancer and a stage I cancer of the pancreas. We decided to approach the cancer of the pancreas first with chemoradiation. She started treatment a couple of weeks ago. Her chemotherapy is capecitabine as a radiosensitizer at a very low dose of 500 mg twice a day. I saw the patient on 10/18/2020 for routine followup. She complained of severe pain of the right 2nd finger. Her fingernail fell off and the tip of the finger fell off as well. The wound did not seem to be infected, but she had cellulitis of the right 2nd finger, and this was excruciatingly painful. She did try to take cephalexin that she had at home, but it did not help. In view of that, plus the fact that she had severe diarrhea, plus the fact that she was dehydrated, I did admit her for IV antibiotics and IV hydration. She also has hypokalemia, hypomagnesemia, hypophosphatemia, and these will need to be replaced intravenously since she is not able to tolerate lotsof oral replacement. I decided to treat her finger cellulitis with Rocephin. She received the 1st dose on 10/18/2020. When seen on 10/19/2020, her right 2nd finger had somewhat improved. I did request a hand surgery consultation, but this has not been done yet. She also has a diabetic ulcer on the right lower extremity, which is being taken care of by the wound nurse. Her lab work on 10/19/2020 showed a white count of 6,000, hemoglobin 11.4, platelet count 94,000. Differential count normal. Chemistries: Glucose 203, sodium 133, potassium 3.0, phosphorus 2.2, magnesium 2.0 after replacement. INR 2.0. I gave her more IV potassium and phosphate. She still has quite severe diarrhea despite taking Lomotil. She takes 2 tablets 4 times a day, which is a high dose, but it seems that that is what she needs to control the diarrhea. Once the diarrhea is controlled, I might go back on capecitabine. The patient is anxious to go home and does not want to stay in the hospital any longer than necessary. I told her that we better give her 5 days of IV antibiotics and try to get her finger in a better shape. Otherwise, if we stop the antibiotic therapy too soon, the cellulitis of the right 2nd finger might flare up again. She agreed to stay to complete her IV antibiotics. On 10/20/20 she had an XR of the Rt hand showing: FINDING: Bony irregularity and/or fracture second digit distal phalanx. Some soft tissue injury changes are also present correlate for recent trauma versus infection. On 10/20/20 Mrs Stafford was seen in her hospital room. She continued to improve. Eating better. The Rt 2nd finger was still hurting. She had a mild cough. The RLE ulcer was dressed. She had an JACQUI bandage around the Rt lower leg. She still had severe diarrhea despite the Lomotil. She had 6 BM's today.She did continue with the RT. Her exam was basically unchanged. Her lab work showed a WBC of 5.0 with an ANC of 4.0; Hgb 11.9 g/dL; Plt 104,000. Glucose 157 mg/dL; phosphorus 1.8 mg/dL; mag 1.5 mg/dL. Albumin 2.2 g/dL. Other chemistries were WNL. She still had evidence of protein/caloric malnutrition.The dietitian was consulted. She did receive her RT today. She requested to add Imodium to her Lomotil. I did order it. Awaiting opinion from hand surgery. For now,I continued Rocephin and replaced herelectrolytes IV. 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 He recommended amputation. The Pt declined. She said that she wanted to complete her RT first.ID consult was requested. On 10/21/20 she had a CXR showing: FINDINGS/IMPRESSION: The cardiac silhouette is normal in size. There is calcified atherosclerosis of the thoracic aorta. There is a 1.3 cm nodular opacity within the mid right lung which likely corresponds with the hypermetabolic nodule in the periphery of the right upper lobe on the prior PET/CT from 07/27/2020. No additional pulmonary nodules are identified. No focal airspace consolidation. No pneumothorax or pleural effusion. On 10/21/20 she was seen by Dr Burgos from ID. He did change the antibiotic to a combination of Cefepime/Metronidazole/Vancomycin. He felt that she should have surgery soon. On 10/21/20 I saw Mrs Stafford in her hospital room. She was feeling fairly well. Her diarrhea had improved. But she was not eating much. Her pain was at an acceptable level. Her exam was unchanged. I explained to her that she needed surgery soon. She agreed to have it done. I'll let Dr Casas know. Hope to have her surgery next week and resume her radiosensitizing chemotherapy. RT can continue since it has no effect on the finger.Her electrolytes were replaced IV. Her CXR was reviewed and felt unchanged. She had her Rt distal index finger amputated by Dr Casas on 10/24/20. She tolearted the procedure well. On 10/24/20 Mrs Stafford was seen in her hospital room after the amputation. She had no pain. She was started on Octreotide by Dr Maldonado this week-end. This seemed to have helped some. Her appetite remained good. She did receive her RT. Her exam was unchanged. Her Plt count was 97,000. Otherwise the CBC was unremarkable. Her chemistries were close to Nl. Phosphorus was 2.1 mg/dL; Albumin was 2.1 g/dL. Her INR was 2.4 and was reverted with FFP for the procedure. Continue antibiotics for now and check with ID. Continue daily RT. Resume Capecitabine in a few days. On 10/25/20 Mrs Stafford was seen in her hospital room. She had pain in the amputated finger. Her diarrhea had improved since on Octreotide. Eating well. Tolerating the RT well. Her exam was unchanged except for the amputated finger. Her CBC showed a WBC of 3.8 with an ANC of 2.8; Hgb 11.0 g/dL; Plt 74,000. Glucose 230 mg/dL; sodium 134 mEq/L. Phosphate 1.9 mg/dL; mag 2.0 mg/dL. Other values were Nl. Mag and phosphate were replaced.Antibiotics per ID. Await cultures and pathology. On 10/27/20 Mrs Stafford was seen in her hospital room. She said that on 10/26/20 she was very weak. Shefelt a little better on 10/27/20. She continued to have diarrhea. She continued to eat well. Her exam was unchanged. The amputated finger stump was dressed. The surgeon examined it and was satisfied withthe healing. Her exam was unchanged. Her lab work showed a WBC of 4.6 with an ANC of 3.5; Hgb 11.0 g/dL; Plt 58,000. Glucose 215 mg/dL; chloride 111 mEq/L. Phosphorus 1.3 mg/dL; mag 1.4 mg/dL; albumin 1.9 g/dL. She will need mag and phosphate replacements. In view of the thrombocytopenia, most likely caused by Vancomycin, I was not able to resume the Capecitabine. Continue daily monitoring of her counts and chemistries. On 10/28/20 Mrs Stafford was seen in her hospital room. She complained of extreme fatigue. She was eating well. Her legs remained weak. Her cough has resolved since she quit the nicotine patches. Her diarrhea did improve with the current regimen. She did receive her RT today. On exam, the Rt index finger stump was dressed. Her pain was acceptable. Her lab work showed a WBC of 7.3 with an ANC of 5.8; Hgb 11.5 g/dL; Plt 63,000. Phosphorus was 1.3 mg/dL;mag was 1.3 mg/dL; albumin was 2.0 g/dL. Other values were Nl. I did review Dr Burgos's recommendations for antibiotic therapy. He recommended to continue Cefepime/Vanco/Metronidazole while in the hospital. At discharge,he recommends Ertapenem and Daptomycin. The duration of treatment will depend on the pathology. Dr Burgos will see her out-patient in 1-2 weeks to decide. She may need antibiotics till 12/05/20. She will require weakly lab work. The Pt was not interested in the [facility] bed. She could not go home due to the cost of the antibiotics. The best might be a TCU in [place] and get the antibiotics out- patient at the . Will discuss with the bottle caser Saturday. Since her Plt count has not recovered yet, I am holding the Capecitabine. Will continue daily labs and daily electrolytes replacement. On 10/31/20 Mrs Stafford was seen in her hospital room. She still had severe diarrhea during the week-end. Her Lomotil was increased with some decrease in the diarrhea. No pain. Her exam was unchanged. Her CBC showed a WBC of 5.9 with an ANC of 4.7; Hgb 10.7 g/dL; Plt 69,000. Glucose 121 mg/dL; [id number] mEq/L. Phosphorus 1.4 mg/dL; mag 1.7 mg/dL; albumin 1.9 g/dL. She received IV Mag and phosphate.As long as she has diarrhea, we need to keep her on IV fluids. If the diarrhea improves,she could goto a TCU and continue RT. If this does not work, she may need to go to [place] in a swing bed. On 11/01/20 Mrs Stafford was seen in her hospital room. She was sitting at the edge of the bed eating.She had a good appetite. No new complaints. The diarrhea was better. She only had 3 BM's by 7 pm. Her exam was unchanged. I did call the pathology lab. They are 1 week behind due to their move. Hope toget the pathology back in 2-3 days. Her lab work remained stable. Her WBC was 5.0 with an ANC of 3.8; Hgb 10.5 g/dL; Plt 72,000. Glucose 196 mg/dL; phosphorus 2.2 mg/dL and mag 1.5 mg/dL;Albumin 1.9 g/dL; LFT's unremarkable. Other chemistries were Nl. She received IV phosphate and mag. She was continued on RT. The Capecitabine continued to be held mainly due to her thrombocytopenia. On 11/02/20 Mrs Stafford was seen in her hospital room. She was feeling cold after coming back from the RT. She had no fever. She had still quite severe diarrhea.C diff was neg. Her exam was unchanged. Her lab work showed a WBC of 4.6; ANC 3.4; Hgb 9.3 g/dL; Plt 81,000. Glucose 196 mg/dL; phosphorus 2.2 mg/dL; mag 1.5 mg/dL; albumin 1.8 g/dL. Dietitian was working on her nutrition. Mag and phosphate were replaced IV. No chemo since her Plt count was still low and she was almost done with RT. Await placement. Pt too complex for a NH and did not want daily transfers from [place] where a swing bed was available.To continue RT as ordered. On 11/03/20 Mrs Stafford was seen in her hospital room. She continued to have diarrhea. She continuedto require electrolytes IV replacement. She had some back pain. Eating well. Her exam was unchanged.Her CBC showed a WBC of 4.1 with an ANC of 3.2; Hgb 9.8 and Plt 69,000. Glucose was 302 mg/dL; sodium 133 mEq/L. Phosphate 2.2 mg/dL; mag 1.4 mg/dL; albumin 1.8 g/dL. Electrolyte IV replacement was ordered. We discussed placement. She did not really want to go to [place]. Nevertheless,I feel that [facility] swing bed would be the best for her in view of her complexity. [place] To be discussed with the bottle caser. On 11/04/20 the PICC line did not function properly and had to be replaced. This was done by . On 11/04/20 Mrs Stafford was seen in her hospital room. She felt chilly after coming back from [facility]. She had no fever. Still having diarrhea. No other complaints. Her exam was unchanged. Her lab work showed a WBC of 3.7 with an ANC of 2.7; Hgb 9.5 g/dL; Plt 81,000. Glucose 304 mg/dL; sodium 134 mEq/L. Albumin 1.8 g/dL. Other values from the chemistry panel were WNL. I continued her IV fluids and anti-diarrheals. Placement will be a problem since [facility] cannot provide transportation for RT. They are willing to take the Pt when done with RT. On 11/05/20 Mrs Stafford was seen in her hospital room for re-evaluation of her cancers and osteomyelitis. She complained of redness,itchiness of the skin under the breasts and in the lower abd. She felt that it was a yeast infection an asked for Nystatin powder. I agreed with her and prescribed the Nystatin powder.She also was wondering when her stiches will come out Dr Casas said 2 weeks. On exam, the only change was redness under the breasts and in skin folds in the lower abdomen. Her lab work showed a WBC of 3.5 with an ANC of 2.6;Hgb 10.1 g/dL. Plt 81,000. Glucose 208 mg/dL; chloride 113 mEq/L; phosphorus 1.9 mg/dL; mag 1.4 mg/dL and albumin 1.9 g/dL. INR 2.2. She was continued on the same antibiotics. I told her that I would contact Dr Casas for the suture removal. On 11/06/20 Mrs Stafford was seen in her hospital room. She continued to have diarrhea. She had the sutures from her Rt index finger removed by Dr Casas. She complained of severe discomfort when going down for RT. She requested a pain med before her RT. I did prescribe hydromorphone. She was continuedon her current regimen of anti-diarrheals. Her exam was unchanged. The rash under the breasts had improved. She felt some burning under the breasts. I reassured her that the rash was improving. Her labwork showed a WBC of 3.6 with an ANC of 2.6; Hgb 10.0 g/dL; Plt 89,000. Glucose 251 mg/dL; sodium 134 mEq/L. Phosphorus 2.2 mg/dL; mag 1.5 mg/dL. Albumin 1.9 g/dL. INR 2.1. Electrolytes replacement was ordered. Review of Systems Constitutional: Positive for fatigue. Negative for appetite change, chills, diaphoresis, fever and unexpected weight change. HENT: Positive for hearing loss. Eyes: Negative. Respiratory: Negative. Cardiovascular: Negative. Gastrointestinal: Positive for diarrhea. Endocrine: Negative. Genitourinary: Negative. Musculoskeletal: Positive for back pain (She has severe pain during RT.). Skin: Positive for wound. Neurological: Positive for extremity weakness. Hematological: Negative. Psychiatric/Behavioral: Negative. Physical / Results Current Vital Signs Temp: 97.6 F (36.4 C) BP: 109/70 Weight: 56.9 kg (125 lb 7.1 oz) SpO2: 100 % Resp: 16 Pulse: 80 Current BMI (>50 = increased risk): 23.5 O2 Device: Room Air Pain Ratin Maximum Temperatures (last 24 hours) Temperature Maximum Max Temp 98.3 F (36.8 C) Intake and Output: 11/05 0700 - 11/06 0659 In: 1112 [Oral:360] Out: - Physical Exam Constitutional: General: She is not in acute distress. Appearance: She is normal weight. She is not ill-appearing, toxic-appearing or diaphoretic. HENT: Head: Normocephalic. Nose: Nose normal. Mouth/Throat: Mouth: Mucous membranes are moist. Pharynx: Oropharynx is clear. No oropharyngeal exudate. Eyes: General: No scleral icterus. Conjunctiva/sclera: Conjunctivae normal. Pupils: Pupils are equal, round, and reactive to light. Neck: Musculoskeletal: Normal range of motion. Cardiovascular: Rate and Rhythm: Normal rate and regular rhythm. Heart sounds: No murmur. Pulmonary: Effort: Pulmonary effort is normal. Breath sounds: Normal breath sounds. Abdominal: General: Abdomen is flat. Bowel sounds are normal. Palpations: Abdomen is soft. Hernia: A hernia is present. Musculoskeletal: Normal range of motion. General: No swelling. Right lower leg: No edema. Left lower leg: No edema. Comments: Missing the distal phalanx of the Rt index finger. Skin: General: Skin is warm and dry. Coloration: Skin is not jaundiced or pale. Findings: Erythema and lesion present. No rash. Neurological: General: No focal deficit present. Mental Status: She is alert. Psychiatric: Mood and Affect: Mood normal. Results for BLAIR STAFFORD ( ) as of 11/06/2020 16:54 Ref. Range 11/06/2020 05:07 WBC Latest Ref Range: 4.0 - 11.0 K/uL 3.6 (L) RBC Latest Ref Range: 3.80 - 5.30 M/uL 3.45 (L) Hemoglobin Latest Ref Range: 11.5 - 15.8 g/dL 10.0 (L) Hematocrit Latest Ref Range: 35.0 - 45.0 % 30.7 (L) MCV Latest Ref Range: 80.0 - 98.0 fL 89.0 MCH Latest Ref Range: 25.5 - 34.0 pg 29.0 MCHC Latest Ref Range: 31.5 - 36.5 g/dL 32.6 RDW-CV Latest Ref Range: 11.5 - 15.5 % 19.4 (H) RDW-SD Latest Ref Range: 35.5 - 50.0 fl 62.3 (H) Platelet Count Latest Ref Range: 140 - 400 K/uL 89 (L) MPV Latest Ref Range: 8.5 - 12.0 fL 12.4 (H) Seg Neut Absolute Latest Ref Range: 1.8 - 8.0 K/uL 2.6 Lymphocytes Absolute Latest Ref Range: 0.8 - 4.1 K/uL 0.2 (L) Monocytes Absolute Latest Ref Range: 0.0 - 1.0 K/uL 0.6 Eosinophils Absolute Latest Ref Range: 0.0 - 0.7 K/uL 0.1 Basophil Absolute Latest Ref Range: 0.0 - 0.2 K/uL 0.0 Immature Granulocyte Absolute Latest Ref Range: 0.00 - 0.06 K/uL 0.02 Neutrophils Percent Latest Units: % 73.2 Neutrophils Abs. (Segs and Bands) Latest Units: /uL 2,600 Lymphocytes Percent Latest Units: % 6.7 Monocytes Percent Latest Units: % 15.9 Immature Granulocyte Percent Latest Units: % 0.6 Eosinophils Percent Latest Units: % 3.3 Basophil Percent Latest Units: % 0.3 Nucleated RBC Latest Units: /100 WBC's 0 Glucose Latest Ref Range: 70 - 100 mg/dL 251 (H) Sodium Latest Ref Range: 135 - 145 meq/L 134 (L) Potassium Latest Ref Range: 3.5 - 5.3 meq/L 4.9 Chloride Latest Ref Range: 99 - 110 meq/L 109 CO2 Latest Ref Range: 20 - 29 meq/L 21 Anion Gap with K Latest Ref Range: 6 - 20 meq/L 9 BUN Latest Ref Range: 6 - 22 mg/dL 10 Creatinine Latest Ref Range: 0.60 - 1.10 mg/dL 0.67 BUN/Creatinine Ratio Latest Ref Range: 10.0 - 25.0 14.9 Calcium Latest Ref Range: 8.5 - 10.5 mg/dL 7.1 (L) Corrected Calcium Latest Ref Range: 8.5 - 10.5 mg/dL 8.8 Phosphorus Latest Ref Range: 2.5 - 4.5 mg/dL 2.2 (L) Magnesium Latest Ref Range: 1.8 - 2.4 mg/dL 1.5 (L) Albumin Latest Ref Range: 3.5 - 5.0 g/dL 1.9 (L) eGFR Latest Ref Range: >=60 mL/min/1.73m2 >90 eGFR Non- Latest Ref Range: >=60 mL/min/1.73m2 84 Protime Latest Ref Range: 12.0 - 14.5 secs 23.0 (H) INR Latest Ref Range: 2.0 - 3.5 2.1 Herber Adams MD - 11/06/2020 2:41 PM CDT HAND SURGERY POST OPERATIVE PROGRESS NOTE November 06, 2020 POD # 13 S/P Amputation of right index fingertip for osteomyelitis S: Blair Stafford is a 80yr female No complaints of pain to the finger O: Temp Readings from Last 3 Encounters: 11/06/20 97.2 F (36.2 C) 10/18/20 98.3 F (36.8 C) (Tympanic) 10/12/20 97.6 F (36.4 C) (Tympanic) BP Readings from Last 3 Encounters: 11/06/20 123/99 10/18/20 90/44 10/12/20 133/74 Pulse Readings from Last 3 Encounters: 11/06/20 82 10/18/20 99 10/12/20 98 Right index finger: incision clean, dry and intact. No erythema, minimal edema. Nontender. Sutures removed without incident. A/P: No further signs of osteomyelitis after amputation -may get incision wet in bath/shower, start scar massage, use hand lotion to soften. -antibiotics no longer needed for finger -f/u as needed, will sign off Gertrude Gregorio MD - 11/05/2020 2:47 PM CST Hematology/Oncology Daily Progress Note Blair Stafford is a 80yr old female admitted on 10/18/2020. 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 * Plan: Continue current antibiotics. Nystatin powder for intertrigo. Replace electrolytes. Next RT on 11/07/20. HPI / History / ROS HPI Mrs. Stafford is an 80-year-old white female patient who has been followed by me over the years for colon cancer. She also has problems with persistent thromboembolic disease. She is on chronic anticoagulation with warfarin. She was diagnosed recently with stage I lung cancer and a stage I cancer of the pancreas. We decided to approach the cancer of the pancreas first with chemoradiation. She started treatment a couple of weeks ago. Her chemotherapy is capecitabine as a radiosensitizer at a very low dose of 500 mg twice a day. I saw the patient on 10/18/2020 for routine followup. She complained of severe pain of the right 2nd finger. Her fingernail fell off and the tip of the finger fell off as well. The wound did not seem to be infected, but she had cellulitis of the right 2nd finger, and this was excruciatingly painful. She did try to take cephalexin that she had at home, but it did not help. In view of that, plus the fact that she had severe diarrhea, plus the fact that she was dehydrated, I did admit her for IV antibiotics and IV hydration. She also has hypokalemia, hypomagnesemia, hypophosphatemia, and these will need to be replaced intravenously since she is not able to tolerate lotsof oral replacement. I decided to treat her finger cellulitis with Rocephin. She received the 1st dose on 10/18/2020. When seen on 10/19/2020, her right 2nd finger had somewhat improved. I did request a hand surgery consultation, but this has not been done yet. She also has a diabetic ulcer on the right lower extremity, which is being taken care of by the wound nurse. Her lab work on 10/19/2020 showed a white count of 6,000, hemoglobin 11.4, platelet count 94,000. Differential count normal. Chemistries: Glucose 203, sodium 133, potassium 3.0, phosphorus 2.2, magnesium 2.0 after replacement. INR 2.0. I gave her more IV potassium and phosphate. She still has quite severe diarrhea despite taking Lomotil. She takes 2 tablets 4 times a day, which is a high dose, but it seems that that is what she needs to control the diarrhea. Once the diarrhea is controlled, I might go back on capecitabine. The patient is anxious to go home and does not want to stay in the hospital any longer than necessary. I told her that we better give her 5 days of IV antibiotics and try to get her finger in a better shape. Otherwise, if we stop the antibiotic therapy too soon, the cellulitis of the right 2nd finger might flare up again. She agreed to stay to complete her IV antibiotics. On 10/20/20 she had an XR of the Rt hand showing: FINDING: Bony irregularity and/or fracture second digit distal phalanx. Some soft tissue injury changes are also present correlate for recent trauma versus infection. On 10/20/20 Mrs Stafford was seen in her hospital room. She continued to improve. Eating better. The Rt 2nd finger was still hurting. She had a mild cough. The RLE ulcer was dressed. She had an JACQUI bandage around the Rt lower leg. She still had severe diarrhea despite the Lomotil. She had 6 BM's today.She did continue with the RT. Her exam was basically unchanged. Her lab work showed a WBC of 5.0 with an ANC of 4.0; Hgb 11.9 g/dL; Plt 104,000. Glucose 157 mg/dL; phosphorus 1.8 mg/dL; mag 1.5 mg/dL. Albumin 2.2 g/dL. Other chemistries were WNL. She still had evidence of protein/caloric malnutrition.The dietitian was consulted. She did receive her RT today. She requested to add Imodium to her Lomotil. I did order it. Awaiting opinion from hand surgery. For now,I continued Rocephin and replaced herelectrolytes IV. 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 He recommended amputation. The Pt declined. She said that she wanted to complete her RT first.ID consult was requested. On 10/21/20 she had a CXR showing: FINDINGS/IMPRESSION: The cardiac silhouette is normal in size. There is calcified atherosclerosis of the thoracic aorta. There is a 1.3 cm nodular opacity within the mid right lung which likely corresponds with the hypermetabolic nodule in the periphery of the right upper lobe on the prior PET/CT from 07/27/2020. No additional pulmonary nodules are identified. No focal airspace consolidation. No pneumothorax or pleural effusion. On 10/21/20 she was seen by Dr Burgos from ID. He did change the antibiotic to a combination of Cefepime/Metronidazole/Vancomycin. He felt that she should have surgery soon. On 10/21/20 I saw Mrs Stafford in her hospital room. She was feeling fairly well. Her diarrhea had improved. But she was not eating much. Her pain was at an acceptable level. Her exam was unchanged. I explained to her that she needed surgery soon. She agreed to have it done. I'll let Dr Casas know. Hope to have her surgery next week and resume her radiosensitizing chemotherapy. RT can continue since it has no effect on the finger.Her electrolytes were replaced IV. Her CXR was reviewed and felt unchanged. She had her Rt distal index finger amputated by Dr Casas on 10/24/20. She tolearted the procedure well. On 10/24/20 Mrs Stafford was seen in her hospital room after the amputation. She had no pain. She was started on Octreotide by Dr Maldonado this week-end. This seemed to have helped some. Her appetite remained good. She did receive her RT. Her exam was unchanged. Her Plt count was 97,000. Otherwise the CBC was unremarkable. Her chemistries were close to Nl. Phosphorus was 2.1 mg/dL; Albumin was 2.1 g/dL. Her INR was 2.4 and was reverted with FFP for the procedure. Continue antibiotics for now and check with ID. Continue daily RT. Resume Capecitabine in a few days. On 10/25/20 Mrs Stafford was seen in her hospital room. She had pain in the amputated finger. Her diarrhea had improved since on Octreotide. Eating well. Tolerating the RT well. Her exam was unchanged except for the amputated finger. Her CBC showed a WBC of 3.8 with an ANC of 2.8; Hgb 11.0 g/dL; Plt 74,000. Glucose 230 mg/dL; sodium 134 mEq/L. Phosphate 1.9 mg/dL; mag 2.0 mg/dL. Other values were Nl. Mag and phosphate were replaced.Antibiotics per ID. Await cultures and pathology. On 10/27/20 Mrs Stafford was seen in her hospital room. She said that on 10/26/20 she was very weak. Shefelt a little better on 10/27/20. She continued to have diarrhea. She continued to eat well. Her exam was unchanged. The amputated finger stump was dressed. The surgeon examined it and was satisfied withthe healing. Her exam was unchanged. Her lab work showed a WBC of 4.6 with an ANC of 3.5; Hgb 11.0 g/dL; Plt 58,000. Glucose 215 mg/dL; chloride 111 mEq/L. Phosphorus 1.3 mg/dL; mag 1.4 mg/dL; albumin 1.9 g/dL. She will need mag and phosphate replacements. In view of the thrombocytopenia, most likely caused by Vancomycin, I was not able to resume the Capecitabine. Continue daily monitoring of her counts and chemistries. On 10/28/20 Mrs Stafford was seen in her hospital room. She complained of extreme fatigue. She was eating well. Her legs remained weak. Her cough has resolved since she quit the nicotine patches. Her diarrhea did improve with the current regimen. She did receive her RT today. On exam, the Rt index finger stump was dressed. Her pain was acceptable. Her lab work showed a WBC of 7.3 with an ANC of 5.8; Hgb 11.5 g/dL; Plt 63,000. Phosphorus was 1.3 mg/dL;mag was 1.3 mg/dL; albumin was 2.0 g/dL. Other values were Nl. I did review Dr Burgos's recommendations for antibiotic therapy. He recommended to continue Cefepime/Vanco/Metronidazole while in the hospital. At discharge,he recommends Ertapenem and Daptomycin. The duration of treatment will depend on the pathology. Dr Burgos will see her out-patient in 1-2 weeks to decide. She may need antibiotics till 12/05/20. She will require weakly lab work. The Pt was not interested in the [facility] swing bed. She could not go home due to the cost of the antibiotics. The best might be a TCU in [place] and get the antibiotics out- patient at the . Will discuss with the bottle caser Saturday. Since her Plt count has not recovered yet, I am holding the Capecitabine. Will continue daily labs and daily electrolytes replacement. On 10/31/20 Mrs Stafford was seen in her hospital room. She still had severe diarrhea during the week-end. Her Lomotil was increased with some decrease in the diarrhea. No pain. Her exam was unchanged. Her CBC showed a WBC of 5.9 with an ANC of 4.7; Hgb 10.7 g/dL; Plt 69,000. Glucose 121 mg/dL; [id number] mEq/L. Phosphorus 1.4 mg/dL; mag 1.7 mg/dL; albumin 1.9 g/dL. She received IV Mag and phosphate.As long as she has diarrhea, we need to keep her on IV fluids. If the diarrhea improves,she could goto a TCU and continue RT. If this does not work, she may need to go to [facility] in a swing bed. On 11/01/20 Mrs Stafford was seen in her hospital room. She was sitting at the edge of the bed eating.She had a good appetite. No new complaints. The diarrhea was better. She only had 3 BM's by 7 pm. Her exam was unchanged. I did call the pathology lab. They are 1 week behind due to their move. Hope toget the pathology back in 2-3 days. Her lab work remained stable. Her WBC was 5.0 with an ANC of 3.8; Hgb 10.5 g/dL; Plt 72,000. Glucose 196 mg/dL; phosphorus 2.2 mg/dL and mag 1.5 mg/dL;Albumin 1.9 g/dL; LFT's unremarkable. Other chemistries were Nl. She received IV phosphate and mag. She was continued on RT. The Capecitabine continued to be held mainly due to her thrombocytopenia. On 11/02/20 Mrs Stafford was seen in her hospital room. She was feeling cold after coming back from the RT. She had no fever. She had still quite severe diarrhea.C diff was neg. Her exam was unchanged. Her lab work showed a WBC of 4.6; ANC 3.4; Hgb 9.3 g/dL; Plt 81,000. Glucose 196 mg/dL; phosphorus 2.2 mg/dL; mag 1.5 mg/dL; albumin 1.8 g/dL. Dietitian was working on her nutrition. Mag and phosphate were replaced IV. No chemo since her Plt count was still low and she was almost done with RT. Await placement. Pt too complex for a NH and did not want daily transfers from [facility] where a swing bed was available.To continue RT as ordered. On 11/03/20 Mrs Stafford was seen in her hospital room. She continued to have diarrhea. She continuedto require electrolytes IV replacement. She had some back pain. Eating well. Her exam was unchanged.Her CBC showed a WBC of 4.1 with an ANC of 3.2; Hgb 9.8 and Plt 69,000. Glucose was 302 mg/dL; sodium 133 mEq/L. Phosphate 2.2 mg/dL; mag 1.4 mg/dL; albumin 1.8 g/dL. Electrolyte IV replacement was ordered. We discussed placement. She did not really want to go to [facility]. Nevertheless,I feel that [facility] swing bed would be the best for her in view of her complexity. [place]. To be discussed with the bottle caser. On 11/04/20 the PICC line did not function properly and had to be replaced. This was done by . On 11/04/20 Mrs Stafford was seen in her hospital room. She felt chilly after coming back from [facility]. She had no fever. Still having diarrhea. No other complaints. Her exam was unchanged. Her lab work showed a WBC of 3.7 with an ANC of 2.7; Hgb 9.5 g/dL; Plt 81,000. Glucose 304 mg/dL; sodium 134 mEq/L. Albumin 1.8 g/dL. Other values from the chemistry panel were WNL. I continued her IV fluids and anti-diarrheals. Placement will be a problem since [facility] cannot provide transportation for RT. They are willing to take the Pt when done with RT. On 11/05/20 Mrs Stafford was seen in her hospital room for re-evaluation of her cancers and osteomyelitis. She complained of redness,itchiness of the skin under the breasts and in the lower abd. She felt that it was a yeast infection an asked for Nystatin powder. I agreed with her and prescribed the Nystatin powder.She also was wondering when her stiches will come out Dr Casas said 2 weeks. On exam, the only change was redness under the breasts and in skin folds in the lower abdomen. Her lab work showed a WBC of 3.5 with an ANC of 2.6;Hgb 10.1 g/dL. Plt 81,000. Glucose 208 mg/dL; chloride 113 mEq/L; phosphorus 1.9 mg/dL; mag 1.4 mg/dL and albumin 1.9 g/dL. INR 2.2. She was continued on the same antibiotics. I told her that I would contact Dr Casas for the suture removal. Review of Systems Constitutional: Positive for chills and fatigue. Negative for appetite change, diaphoresis, fever and unexpected weight change. HENT: Positive for hearing loss. Eyes: Negative. Respiratory: Positive for cough. Cardiovascular: Negative. Gastrointestinal: Positive for diarrhea. Negative for nausea and vomiting. Endocrine: Negative. Genitourinary: Negative. Skin: Positive for itching, rash (Redness under the breasts and in the groins.) and wound. Neurological: Positive for extremity weakness. Hematological: Negative. Psychiatric/Behavioral: Negative. Physical / Results Current Vital Signs Temp: 97.9 F (36.6 C) BP: 128/72 Weight: 56.9 kg (125 lb 7.1 oz) SpO2: 98 % Resp: 16 Pulse: 85 Current BMI (>50 = increased risk): 23.5 O2 Device: Room Air Pain Ratin Maximum Temperatures (last 24 hours) Temperature Maximum Max Temp 97.9 F (36.6 C) Intake and Output: 11/04 0700 - 11/05 0659 In: 2091 [Oral:420] Out: 1300 [Urine:600] Physical Exam Constitutional: General: She is not in acute distress. Appearance: Normal appearance. She is not ill-appearing, toxic-appearing or diaphoretic. HENT: Head: Normocephalic. Nose: Nose normal. Mouth/Throat: Mouth: Mucous membranes are moist. Pharynx: Oropharynx is clear. No oropharyngeal exudate. Eyes: General: No scleral icterus. Conjunctiva/sclera: Conjunctivae normal. Pupils: Pupils are equal, round, and reactive to light. Neck: Musculoskeletal: Normal range of motion. Cardiovascular: Rate and Rhythm: Normal rate and regular rhythm. Heart sounds: No murmur. Pulmonary: Effort: Pulmonary effort is normal. Breath sounds: Normal breath sounds. Abdominal: General: Abdomen is flat. Palpations: Abdomen is soft. Tenderness: There is abdominal tenderness (Her ventral hernia is tender.). Musculoskeletal: Normal range of motion. Right lower leg: No edema. Left lower leg: No edema. Comments: S/P amputation of the distal phalanx of the Rt index finger. Skin: General: Skin is warm and dry. Coloration: Skin is not jaundiced. Findings: Erythema and lesion present. Neurological: General: No focal deficit present. Mental Status: She is alert. Psychiatric: Mood and Affect: Mood normal. Results for BLAIR STAFFORD ( ) as of 11/05/2020 14:54 Ref. Range 11/05/2020 05:05 WBC Latest Ref Range: 4.0 - 11.0 K/uL 3.5 (L) RBC Latest Ref Range: 3.80 - 5.30 M/uL 3.44 (L) Hemoglobin Latest Ref Range: 11.5 - 15.8 g/dL 10.1 (L) Hematocrit Latest Ref Range: 35.0 - 45.0 % 30.9 (L) MCV Latest Ref Range: 80.0 - 98.0 fL 89.8 MCH Latest Ref Range: 25.5 - 34.0 pg 29.4 MCHC Latest Ref Range: 31.5 - 36.5 g/dL 32.7 RDW-CV Latest Ref Range: 11.5 - 15.5 % 19.2 (H) RDW-SD Latest Ref Range: 35.5 - 50.0 fl 62.2 (H) Platelet Count Latest Ref Range: 140 - 400 K/uL 81 (L) MPV Latest Ref Range: 8.5 - 12.0 fL 12.4 (H) Seg Neut Absolute Latest Ref Range: 1.8 - 8.0 K/uL 2.6 Lymphocytes Absolute Latest Ref Range: 0.8 - 4.1 K/uL 0.2 (L) Monocytes Absolute Latest Ref Range: 0.0 - 1.0 K/uL 0.6 Eosinophils Absolute Latest Ref Range: 0.0 - 0.7 K/uL 0.1 Basophil Absolute Latest Ref Range: 0.0 - 0.2 K/uL 0.0 Immature Granulocyte Absolute Latest Ref Range: 0.00 - 0.06 K/uL 0.03 Neutrophils Percent Latest Units: % 72.7 Neutrophils Abs. (Segs and Bands) Latest Units: /uL 2,600 Lymphocytes Percent Latest Units: % 6.6 Monocytes Percent Latest Units: % 16.9 Immature Granulocyte Percent Latest Units: % 0.9 Eosinophils Percent Latest Units: % 2.6 Basophil Percent Latest Units: % 0.3 Nucleated RBC Latest Units: /100 WBC's 0 Glucose Latest Ref Range: 70 - 100 mg/dL 208 (H) Sodium Latest Ref Range: 135 - 145 meq/L 136 Potassium Latest Ref Range: 3.5 - 5.3 meq/L 5.0 Chloride Latest Ref Range: 99 - 110 meq/L 113 (H) CO2 Latest Ref Range: 20 - 29 meq/L 21 Anion Gap with K Latest Ref Range: 6 - 20 meq/L 7 BUN Latest Ref Range: 6 - 22 mg/dL 10 Creatinine Latest Ref Range: 0.60 - 1.10 mg/dL 0.67 BUN/Creatinine Ratio Latest Ref Range: 10.0 - 25.0 14.9 Calcium Latest Ref Range: 8.5 - 10.5 mg/dL 7.1 (L) Corrected Calcium Latest Ref Range: 8.5 - 10.5 mg/dL 8.8 Phosphorus Latest Ref Range: 2.5 - 4.5 mg/dL 1.9 (L) Magnesium Latest Ref Range: 1.8 - 2.4 mg/dL 1.4 (L) Albumin Latest Ref Range: 3.5 - 5.0 g/dL 1.9 (L) eGFR Latest Ref Range: >=60 mL/min/1.73m2 >90 eGFR Non- Latest Ref Range: >=60 mL/min/1.73m2 84 Protime Latest Ref Range: 12.0 - 14.5 secs 24.6 (H) INR Latest Ref Range: 2.0 - 3.5 2.2 STANT SURVEYOR Dipti Szymanski [facility] - 11/05/2020 12:38 PM CST Ms. Stafford continues on Vancomycin per pharmacy protocol for osteomyelitis. The patient is on day 16 of receiving Vancomycin and current dose is 1000 mg every 24 hours. Labs: WBC Date/Time Value Ref Range Status 11/05/2020 05:05 AM 3.5 (L) 4.0 - 11.0 K/uL Final 11/04/2020 06:00 AM 3.7 (L) 4.0 - 11.0 K/uL Final 11/03/2020 02:41 PM 4.1 4.0 - 11.0 K/uL Final 09/29/2020 4.6 Final 07/01/2020 03:10 PM 5.8 4.0 - 10.2 K/uL Final 09/30/2019 5.20 4 - 11 Final 04/04/2018 03:11 PM 7.0 K/uL Lab Results Component Value Date CREATSERUM 0.67 11/05/2020 CREATSERUM 0.64 11/04/2020 CREATSERUM 0.68 11/03/2020 Vancomycin Trough Date/Time Value Ref Range Status 11/05/2020 10:29 AM 20.8 (H) 10.0 - 20.0 ug/mL Final Vancomycin Random Date/Time Value Ref Range Status 11/02/2020 01:50 AM 14.5 ug/mL Final Cultures: Lab Results Component Value Date CULTGROWTH No anaerobic growth at 5 days 10/24/2020 CULTGROWTH No growth 10/24/2020 Max Temperature: Temp (24hrs), Av.8 F (36.6 C), Min:97.5 F (36.4 C), Max:97.9 F (36.6 C) Estimated CrCl: CrCl cannot be calculated (Unknown ideal weight.). ml/min Intake/Output: Intake/Output Summary (Last 24 hours) at 11/05/2020 1238 Last data filed at 11/05/2020 0535 Gross per 24 hour Intake 2092 ml Output 1300 ml Net 792 ml Other Active Antimicrobials: Antibiotics (From admission, onward) Start Stop Route Frequency Ordered 11/02/20 0930 vancomycin in dextrose 200 mL IV piggyback (premix) 1,000 mg -- IV Every twenty four hours 11/02/20 0837 11/01/20 0100 vancomycin in dextrose 200 mL IV piggyback (premix) 1,000 mg 11/01 0231 IV One time 11/01/20 0008 10/30/20 2000 vancomycin in dextrose 200 mL IV piggyback (premix) 1,000 mg 10/30 2103 IV One time 10/30/20 1011 10/29/20 0800 vancomycin in dextrose 200 mL IV piggyback (premix) 1,000 mg 10/29 1053 IV One time 10/29/20 0720 10/27/20 1945 vancomycin in dextrose 200 mL IV piggyback (premix) 1,000 mg 10/27 2057 IV One time 10/27/20 1840 10/26/20 0732 vancomycin therapy reminder Status: Discontinued 11/02 08 [facility] [place] 10/26/20 0732 10/26/20 0000 cefepime (MAXIPIME) 2000 mg/20 mL in sterile water IV syringe -- IV Every twelve hours 10/25/20 1338 10/21/20 1700 metroNIDAZOLE (FLAGYL) tablet 500 mg -- PO Three times a day 10/21/20 1550 10/21/20 1700 vancomycin in dextrose 200 mL IV piggyback (premix) 1,000 mg Status: Discontinued 10/26 0732 IV Every twelve hours 10/21/20 1602 10/21/20 1630 cefepime (MAXIPIME) 2000 mg/20 mL in sterile water IV syringe Status: Discontinued 10/25 1338 IV Every eight hours 10/21/20 1550 10/18/20 1700 cefTRIAXone (ROCEPHIN) 1000 mg/10 mL IV syringe in sterile water Status: Discontinued 10/21 1550 IV Every twenty four hours 10/18/20 1547 Assessment/Plan: The trough level is higher than the desired goal of 15-20 mg/L. Vancomycin will be changed to 750 mg every 24 hours Pharmacy will continue to monitor per the pharmacokinetic service policy. Dipti Szymanski, PharmD STANT SURVEYOR Gertrude Thomas MD - 11/04/2020 6:16 PM CST Hematology/Oncology Daily Progress Note Blair Stafford is a 80yr old female admitted on 10/18/2020. 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 * Plan: Continue antibiotics per ID. Continue RT. Replace electrolytes. HPI / History / ROS HPI Mrs. Stafford is an 80-year-old white female patient who has been followed by me over the years for colon cancer. She also has problems with persistent thromboembolic disease. She is on chronic anticoagulation with warfarin. She was diagnosed recently with stage I lung cancer and a stage I cancer of the pancreas. We decided to approach the cancer of the pancreas first with chemoradiation. She started treatment a couple of weeks ago. Her chemotherapy is capecitabine as a radiosensitizer at a very low dose of 500 mg twice a day. I saw the patient on 10/18/2020 for routine followup. She complained of severe pain of the right 2nd finger. Her fingernail fell off and the tip of the finger fell off as well. The wound did not seem to be infected, but she had cellulitis of the right 2nd finger, and this was excruciatingly painful. She did try to take cephalexin that she had at home, but it did not help. In view of that, plus the fact that she had severe diarrhea, plus the fact that she was dehydrated, I did admit her for IV antibiotics and IV hydration. She also has hypokalemia, hypomagnesemia, hypophosphatemia, and these will need to be replaced intravenously since she is not able to tolerate lotsof oral replacement. I decided to treat her finger cellulitis with Rocephin. She received the 1st dose on 10/18/2020. When seen on 10/19/2020, her right 2nd finger had somewhat improved. I did request a hand surgery consultation, but this has not been done yet. She also has a diabetic ulcer on the right lower extremity, which is being taken care of by the wound nurse. Her lab work on 10/19/2020 showed a white count of 6,000, hemoglobin 11.4, platelet count 94,000. Differential count normal. Chemistries: Glucose 203, sodium 133, potassium 3.0, phosphorus 2.2, magnesium 2.0 after replacement. INR 2.0. I gave her more IV potassium and phosphate. She still has quite severe diarrhea despite taking Lomotil. She takes 2 tablets 4 times a day, which is a high dose, but it seems that that is what she needs to control the diarrhea. Once the diarrhea is controlled, I might go back on capecitabine. The patient is anxious to go home and does not want to stay in the hospital any longer than necessary. I told her that we better give her 5 days of IV antibiotics and try to get her finger in a better shape. Otherwise, if we stop the antibiotic therapy too soon, the cellulitis of the right 2nd finger might flare up again. She agreed to stay to complete her IV antibiotics. On 10/20/20 she had an XR of the Rt hand showing: FINDING: Bony irregularity and/or fracture second digit distal phalanx. Some soft tissue injury changes are also present correlate for recent trauma versus infection. On 10/20/20 Mrs Stafford was seen in her hospital room. She continued to improve. Eating better. The Rt 2nd finger was still hurting. She had a mild cough. The RLE ulcer was dressed. She had an JACQUI bandage around the Rt lower leg. She still had severe diarrhea despite the Lomotil. She had 6 BM's today.She did continue with the RT. Her exam was basically unchanged. Her lab work showed a WBC of 5.0 with an ANC of 4.0; Hgb 11.9 g/dL; Plt 104,000. Glucose 157 mg/dL; phosphorus 1.8 mg/dL; mag 1.5 mg/dL. Albumin 2.2 g/dL. Other chemistries were WNL. She still had evidence of protein/caloric malnutrition.The dietitian was consulted. She did receive her RT today. She requested to add Imodium to her Lomotil. I did order it. Awaiting opinion from hand surgery. For now,I continued Rocephin and replaced herelectrolytes IV. 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 He recommended amputation. The Pt declined. She said that she wanted to complete her RT first.ID consult was requested. On 10/21/20 she had a CXR showing: FINDINGS/IMPRESSION: The cardiac silhouette is normal in size. There is calcified atherosclerosis of the thoracic aorta. There is a 1.3 cm nodular opacity within the mid right lung which likely corresponds with the hypermetabolic nodule in the periphery of the right upper lobe on the prior PET/CT from 07/27/2020. No additional pulmonary nodules are identified. No focal airspace consolidation. No pneumothorax or pleural effusion. On 10/21/20 she was seen by Dr Burgos from ID. He did change the antibiotic to a combination of Cefepime/Metronidazole/Vancomycin. He felt that she should have surgery soon. On 10/21/20 I saw Mrs Stafford in her hospital room. She was feeling fairly well. Her diarrhea had improved. But she was not eating much. Her pain was at an acceptable level. Her exam was unchanged. I explained to her that she needed surgery soon. She agreed to have it done. I'll let Dr Casas know. Hope to have her surgery next week and resume her radiosensitizing chemotherapy. RT can continue since it has no effect on the finger.Her electrolytes were replaced IV. Her CXR was reviewed and felt unchanged. She had her Rt distal index finger amputated by Dr Casas on 10/24/20. She tolearted the procedure well. On 10/24/20 Mrs Stafford was seen in her hospital room after the amputation. She had no pain. She was started on Octreotide by Dr Maldonado this week-end. This seemed to have helped some. Her appetite remained good. She did receive her RT. Her exam was unchanged. Her Plt count was 97,000. Otherwise the CBC was unremarkable. Her chemistries were close to Nl. Phosphorus was 2.1 mg/dL; Albumin was 2.1 g/dL. Her INR was 2.4 and was reverted with FFP for the procedure. Continue antibiotics for now and check with ID. Continue daily RT. Resume Capecitabine in a few days. On 10/25/20 Mrs Stafford was seen in her hospital room. She had pain in the amputated finger. Her diarrhea had improved since on Octreotide. Eating well. Tolerating the RT well. Her exam was unchanged except for the amputated finger. Her CBC showed a WBC of 3.8 with an ANC of 2.8; Hgb 11.0 g/dL; Plt 74,000. Glucose 230 mg/dL; sodium 134 mEq/L. Phosphate 1.9 mg/dL; mag 2.0 mg/dL. Other values were Nl. Mag and phosphate were replaced.Antibiotics per ID. Await cultures and pathology. On 10/27/20 Mrs Stafford was seen in her hospital room. She said that on 10/26/20 she was very weak. Shefelt a little better on 10/27/20. She continued to have diarrhea. She continued to eat well. Her exam was unchanged. The amputated finger stump was dressed. The surgeon examined it and was satisfied withthe healing. Her exam was unchanged. Her lab work showed a WBC of 4.6 with an ANC of 3.5; Hgb 11.0 g/dL; Plt 58,000. Glucose 215 mg/dL; chloride 111 mEq/L. Phosphorus 1.3 mg/dL; mag 1.4 mg/dL; albumin 1.9 g/dL. She will need mag and phosphate replacements. In view of the thrombocytopenia, most likely caused by Vancomycin, I was not able to resume the Capecitabine. Continue daily monitoring of her counts and chemistries. On 10/28/20 Mrs Stafford was seen in her hospital room. She complained of extreme fatigue. She was eating well. Her legs remained weak. Her cough has resolved since she quit the nicotine patches. Her diarrhea did improve with the current regimen. She did receive her RT today. On exam, the Rt index finger stump was dressed. Her pain was acceptable. Her lab work showed a WBC of 7.3 with an ANC of 5.8; Hgb 11.5 g/dL; Plt 63,000. Phosphorus was 1.3 mg/dL;mag was 1.3 mg/dL; albumin was 2.0 g/dL. Other values were Nl. I did review Dr Burgos's recommendations for antibiotic therapy. He recommended to continue Cefepime/Vanco/Metronidazole while in the hospital. At discharge,he recommends Ertapenem and Daptomycin. The duration of treatment will depend on the pathology. Dr Burgos will see her out-patient in 1-2 weeks to decide. She may need antibiotics till 12/05/20. She will require weakly lab work. The Pt was not interested in the [facility] swing bed. She could not go home due to the cost of the antibiotics. The best might be a TCU in [place] and get the antibiotics out- patient at the . Will discuss with the bottle caser Saturday. Since her Plt count has not recovered yet, I am holding the Capecitabine. Will continue daily labs and daily electrolytes replacement. On 10/31/20 Mrs Stafford was seen in her hospital room. She still had severe diarrhea during the week-end. Her Lomotil was increased with some decrease in the diarrhea. No pain. Her exam was unchanged. Her CBC showed a WBC of 5.9 with an ANC of 4.7; Hgb 10.7 g/dL; Plt 69,000. Glucose 121 mg/dL; [id number] mEq/L. Phosphorus 1.4 mg/dL; mag 1.7 mg/dL; albumin 1.9 g/dL. She received IV Mag and phosphate.As long as she has diarrhea, we need to keep her on IV fluids. If the diarrhea improves,she could goto a TCU and continue RT. If this does not work, she may need to go to [facility] in a swing bed. On 11/01/20 Mrs Stafford was seen in her hospital room. She was sitting at the edge of the bed eating.She had a good appetite. No new complaints. The diarrhea was better. She only had 3 BM's by 7 pm. Her exam was unchanged. I did call the pathology lab. They are 1 week behind due to their move. Hope toget the pathology back in 2-3 days. Her lab work remained stable. Her WBC was 5.0 with an ANC of 3.8; Hgb 10.5 g/dL; Plt 72,000. Glucose 196 mg/dL; phosphorus 2.2 mg/dL and mag 1.5 mg/dL;Albumin 1.9 g/dL; LFT's unremarkable. Other chemistries were Nl. She received IV phosphate and mag. She was continued on RT. The Capecitabine continued to be held mainly due to her thrombocytopenia. On 11/02/20 Mrs Stafford was seen in her hospital room. She was feeling cold after coming back from the RT. She had no fever. She had still quite severe diarrhea.C diff was neg. Her exam was unchanged. Her lab work showed a WBC of 4.6; ANC 3.4; Hgb 9.3 g/dL; Plt 81,000. Glucose 196 mg/dL; phosphorus 2.2 mg/dL; mag 1.5 mg/dL; albumin 1.8 g/dL. Dietitian was working on her nutrition. Mag and phosphate were replaced IV. No chemo since her Plt count was still low and she was almost done with RT. Await placement. Pt too complex for a NH and did not want daily transfers from [facility] where a swing bed was available.To continue RT as ordered. On 11/03/20 Mrs Stafford was seen in her hospital room. She continued to have diarrhea. She continuedto require electrolytes IV replacement. She had some back pain. Eating well. Her exam was unchanged.Her CBC showed a WBC of 4.1 with an ANC of 3.2; Hgb 9.8 and Plt 69,000. Glucose was 302 mg/dL; sodium 133 mEq/L. Phosphate 2.2 mg/dL; mag 1.4 mg/dL; albumin 1.8 g/dL. Electrolyte IV replacement was ordered. We discussed placement. She did not really want to go to [facility]. Nevertheless,I feel that [facility] swing bed would be the best for her in view of her complexity. [place]. To be discussed with the bottle caser. On 11/04/20 the PICC line did not function properly and had to be replaced. This was done by . On 11/04/20 Mrs Stafford was seen in her hospital room. She felt chilly after coming back from and. She had no fever. Still having diarrhea. No other complaints. Her exam was unchanged. Her lab work showed a WBC of 3.7 with an ANC of 2.7; Hgb 9.5 g/dL; Plt 81,000. Glucose 304 mg/dL; sodium 134 mEq/L. Albumin 1.8 g/dL. Other values from the chemistry panel were WNL. I continued her IV fluids and anti-diarrheals. Placement will be a problem since [facility] cannot provide transportation for RT. They are willing to take the Pt when done with RT. Review of Systems Constitutional: Positive for chills and fatigue. Negative for appetite change, diaphoresis, fever and unexpected weight change. HENT: Positive for hearing loss. Eyes: Negative. Respiratory: Negative. Cardiovascular: Negative. Gastrointestinal: Positive for diarrhea. Negative for abdominal pain, nausea and vomiting. Endocrine: Negative. Genitourinary: Negative. Skin: Positive for wound. Neurological: Positive for extremity weakness. Hematological: Negative. Psychiatric/Behavioral: Negative. Physical / Results Current Vital Signs Temp: 97.5 F (36.4 C) BP: 115/82 Weight: 56.5 kg (124 lb 9 oz) SpO2: 100 % Resp: 16 Pulse: 73 Current BMI (>50 = increased risk): 23.5 O2 Device: Room Air Pain Ratin Maximum Temperatures (last 24 hours) Temperature Maximum Max Temp 97.6 F (36.4 C) Intake and Output: 11/03 0700 - 11/04 0659 In: 1980 [Oral:420] Out: 400 [Urine:400] Physical Exam Constitutional: General: She is not in acute distress. Appearance: She is normal weight. She is not ill-appearing, toxic-appearing or diaphoretic. HENT: Head: Normocephalic. Nose: Nose normal. Mouth/Throat: Mouth: Mucous membranes are moist. Pharynx: Oropharynx is clear. No oropharyngeal exudate. Eyes: General: No scleral icterus. Conjunctiva/sclera: Conjunctivae normal. Pupils: Pupils are equal, round, and reactive to light. Neck: Musculoskeletal: Normal range of motion. Cardiovascular: Rate and Rhythm: Normal rate and regular rhythm. Heart sounds: No murmur. Pulmonary: Effort: Pulmonary effort is normal. Breath sounds: Normal breath sounds. Abdominal: General: Abdomen is flat. Bowel sounds are normal. Palpations: Abdomen is soft. Musculoskeletal: Normal range of motion. Right lower leg: No edema. Left lower leg: No edema. Comments: S/P amputation distal phalanx of the Rt 2nd finger. Skin: General: Skin is warm and dry. Coloration: Skin is not jaundiced or pale. Neurological: General: No focal deficit present. Mental Status: She is alert. Psychiatric: Mood and Affect: Mood normal. Results for BLAIR STAFFORD ( ) as of 11/04/2020 18:20 Ref. Range 11/04/2020 06:00 WBC Latest Ref Range: 4.0 - 11.0 K/uL 3.7 (L) RBC Latest Ref Range: 3.80 - 5.30 M/uL 3.35 (L) Hemoglobin Latest Ref Range: 11.5 - 15.8 g/dL 9.5 (L) Hematocrit Latest Ref Range: 35.0 - 45.0 % 29.6 (L) MCV Latest Ref Range: 80.0 - 98.0 fL 88.4 MCH Latest Ref Range: 25.5 - 34.0 pg 28.4 MCHC Latest Ref Range: 31.5 - 36.5 g/dL 32.1 RDW-CV Latest Ref Range: 11.5 - 15.5 % 19.0 (H) RDW-SD Latest Ref Range: 35.5 - 50.0 fl 61.3 (H) Platelet Count Latest Ref Range: 140 - 400 K/uL 81 (L) MPV Latest Ref Range: 8.5 - 12.0 fL 13.3 (H) Seg Neut Absolute Latest Ref Range: 1.8 - 8.0 K/uL 2.7 Lymphocytes Absolute Latest Ref Range: 0.8 - 4.1 K/uL 0.2 (L) Monocytes Absolute Latest Ref Range: 0.0 - 1.0 K/uL 0.6 Eosinophils Absolute Latest Ref Range: 0.0 - 0.7 K/uL 0.1 Basophil Absolute Latest Ref Range: 0.0 - 0.2 K/uL 0.0 Immature Granulocyte Absolute Latest Ref Range: 0.00 - 0.06 K/uL 0.03 Neutrophils Percent Latest Units: % 72.8 Neutrophils Abs. (Segs and Bands) Latest Units: /uL 2,700 Lymphocytes Percent Latest Units: % 6.0 Monocytes Percent Latest Units: % 16.3 Immature Granulocyte Percent Latest Units: % 0.8 Eosinophils Percent Latest Units: % 3.8 Basophil Percent Latest Units: % 0.3 Nucleated RBC Latest Units: /100 WBC's 0 Glucose Latest Ref Range: 70 - 100 mg/dL 304 (H) Sodium Latest Ref Range: 135 - 145 meq/L 134 (L) Potassium Latest Ref Range: 3.5 - 5.3 meq/L 4.6 Chloride Latest Ref Range: 99 - 110 meq/L 110 CO2 Latest Ref Range: 20 - 29 meq/L 21 Anion Gap with K Latest Ref Range: 6 - 20 meq/L 8 BUN Latest Ref Range: 6 - 22 mg/dL 9 Creatinine Latest Ref Range: 0.60 - 1.10 mg/dL 0.64 BUN/Creatinine Ratio Latest Ref Range: 10.0 - 25.0 14.1 Calcium Latest Ref Range: 8.5 - 10.5 mg/dL 6.9 (L) Corrected Calcium Latest Ref Range: 8.5 - 10.5 mg/dL 8.7 Phosphorus Latest Ref Range: 2.5 - 4.5 mg/dL 2.8 Magnesium Latest Ref Range: 1.8 - 2.4 mg/dL 2.2 Albumin Latest Ref Range: 3.5 - 5.0 g/dL 1.8 (L) eGFR Latest Ref Range: >=60 mL/min/1.73m2 >90 eGFR Non- Latest Ref Range: >=60 mL/min/1.73m2 89 Protime Latest Ref Range: 12.0 - 14.5 secs 24.5 (H) INR Latest Ref Range: 2.0 - 3.5 2.2 STANT SURVEYOR Gertrude Thomas MD - 11/03/2020 6:40 PM CST Hematology/Oncology Daily Progress Note Blair Stafford is a 80yr old female admitted on 10/18/2020. 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 * Plan: She needs IV antibiotics till 12/05/20. Placement issue. Continue RT. No chemo. Plt count remains low. Replace mag and phosphate. Continue IV with potassium. HPI / History / ROS HPI Mrs. Stafford is an 80-year-old white female patient who has been followed by me over the years for colon cancer. She also has problems with persistent thromboembolic disease. She is on chronic anticoagulation with warfarin. She was diagnosed recently with stage I lung cancer and a stage I cancer of the pancreas. We decided to approach the cancer of the pancreas first with chemoradiation. She started treatment a couple of weeks ago. Her chemotherapy is capecitabine as a radiosensitizer at a very low dose of 500 mg twice a day. I saw the patient on 10/18/2020 for routine followup. She complained of severe pain of the right 2nd finger. Her fingernail fell off and the tip of the finger fell off as well. The wound did not seem to be infected, but she had cellulitis of the right 2nd finger, and this was excruciatingly painful. She did try to take cephalexin that she had at home, but it did not help. In view of that, plus the fact that she had severe diarrhea, plus the fact that she was dehydrated, I did admit her for IV antibiotics and IV hydration. She also has hypokalemia, hypomagnesemia, hypophosphatemia, and these will need to be replaced intravenously since she is not able to tolerate lotsof oral replacement. I decided to treat her finger cellulitis with Rocephin. She received the 1st dose on 10/18/2020. When seen on 10/19/2020, her right 2nd finger had somewhat improved. I did request a hand surgery consultation, but this has not been done yet. She also has a diabetic ulcer on the right lower extremity, which is being taken care of by the wound nurse. Her lab work on 10/19/2020 showed a white count of 6,000, hemoglobin 11.4, platelet count 94,000. Differential count normal. Chemistries: Glucose 203, sodium 133, potassium 3.0, phosphorus 2.2, magnesium 2.0 after replacement. INR 2.0. I gave her more IV potassium and phosphate. She still has quite severe diarrhea despite taking Lomotil. She takes 2 tablets 4 times a day, which is a high dose, but it seems that that is what she needs to control the diarrhea. Once the diarrhea is controlled, I might go back on capecitabine. The patient is anxious to go home and does not want to stay in the hospital any longer than necessary. I told her that we better give her 5 days of IV antibiotics and try to get her finger in a better shape. Otherwise, if we stop the antibiotic therapy too soon, the cellulitis of the right 2nd finger might flare up again. She agreed to stay to complete her IV antibiotics. On 10/20/20 she had an XR of the Rt hand showing: FINDING: Bony irregularity and/or fracture second digit distal phalanx. Some soft tissue injury changes are also present correlate for recent trauma versus infection. On 10/20/20 Mrs Stafford was seen in her hospital room. She continued to improve. Eating better. The Rt 2nd finger was still hurting. She had a mild cough. The RLE ulcer was dressed. She had an JACQUI bandage around the Rt lower leg. She still had severe diarrhea despite the Lomotil. She had 6 BM's today.She did continue with the RT. Her exam was basically unchanged. Her lab work showed a WBC of 5.0 with an ANC of 4.0; Hgb 11.9 g/dL; Plt 104,000. Glucose 157 mg/dL; phosphorus 1.8 mg/dL; mag 1.5 mg/dL. Albumin 2.2 g/dL. Other chemistries were WNL. She still had evidence of protein/caloric malnutrition.The dietitian was consulted. She did receive her RT today. She requested to add Imodium to her Lomotil. I did order it. Awaiting opinion from hand surgery. For now,I continued Rocephin and replaced herelectrolytes IV. 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 He recommended amputation. The Pt declined. She said that she wanted to complete her RT first.ID consult was requested. On 10/21/20 she had a CXR showing: FINDINGS/IMPRESSION: The cardiac silhouette is normal in size. There is calcified atherosclerosis of the thoracic aorta. There is a 1.3 cm nodular opacity within the mid right lung which likely corresponds with the hypermetabolic nodule in the periphery of the right upper lobe on the prior PET/CT from 07/27/2020. No additional pulmonary nodules are identified. No focal airspace consolidation. No pneumothorax or pleural effusion. On 10/21/20 she was seen by Dr Burgos from ID. He did change the antibiotic to a combination of Cefepime/Metronidazole/Vancomycin. He felt that she should have surgery soon. On 10/21/20 I saw Mrs Stafford in her hospital room. She was feeling fairly well. Her diarrhea had improved. But she was not eating much. Her pain was at an acceptable level. Her exam was unchanged. I explained to her that she needed surgery soon. She agreed to have it done. I'll let Dr Casas know. Hope to have her surgery next week and resume her radiosensitizing chemotherapy. RT can continue since it has no effect on the finger.Her electrolytes were replaced IV. Her CXR was reviewed and felt unchanged. She had her Rt distal index finger amputated by Dr Casas on 10/24/20. She tolearted the procedure well. On 10/24/20 Mrs Stafford was seen in her hospital room after the amputation. She had no pain. She was started on Octreotide by Dr Maldonado this week-end. This seemed to have helped some. Her appetite remained good. She did receive her RT. Her exam was unchanged. Her Plt count was 97,000. Otherwise the CBC was unremarkable. Her chemistries were close to Nl. Phosphorus was 2.1 mg/dL; Albumin was 2.1 g/dL. Her INR was 2.4 and was reverted with FFP for the procedure. Continue antibiotics for now and check with ID. Continue daily RT. Resume Capecitabine in a few days. On 10/25/20 Mrs Stafford was seen in her hospital room. She had pain in the amputated finger. Her diarrhea had improved since on Octreotide. Eating well. Tolerating the RT well. Her exam was unchanged except for the amputated finger. Her CBC showed a WBC of 3.8 with an ANC of 2.8; Hgb 11.0 g/dL; Plt 74,000. Glucose 230 mg/dL; sodium 134 mEq/L. Phosphate 1.9 mg/dL; mag 2.0 mg/dL. Other values were Nl. Mag and phosphate were replaced.Antibiotics per ID. Await cultures and pathology. On 10/27/20 Mrs Stafford was seen in her hospital room. She said that on 10/26/20 she was very weak. Shefelt a little better on 10/27/20. She continued to have diarrhea. She continued to eat well. Her exam was unchanged. The amputated finger stump was dressed. The surgeon examined it and was satisfied withthe healing. Her exam was unchanged. Her lab work showed a WBC of 4.6 with an ANC of 3.5; Hgb 11.0 g/dL; Plt 58,000. Glucose 215 mg/dL; chloride 111 mEq/L. Phosphorus 1.3 mg/dL; mag 1.4 mg/dL; albumin 1.9 g/dL. She will need mag and phosphate replacements. In view of the thrombocytopenia, most likely caused by Vancomycin, I was not able to resume the Capecitabine. Continue daily monitoring of her counts and chemistries. On 10/28/20 Mrs Stafford was seen in her hospital room. She complained of extreme fatigue. She was eating well. Her legs remained weak. Her cough has resolved since she quit the nicotine patches. Her diarrhea did improve with the current regimen. She did receive her RT today. On exam, the Rt index finger stump was dressed. Her pain was acceptable. Her lab work showed a WBC of 7.3 with an ANC of 5.8; Hgb 11.5 g/dL; Plt 63,000. Phosphorus was 1.3 mg/dL;mag was 1.3 mg/dL; albumin was 2.0 g/dL. Other values were Nl. I did review Dr Burgos's recommendations for antibiotic therapy. He recommended to continue Cefepime/Vanco/Metronidazole while in the hospital. At discharge,he recommends Ertapenem and Daptomycin. The duration of treatment will depend on the pathology. Dr Burgos will see her out-patient in 1-2 weeks to decide. She may need antibiotics till 12/05/20. She will require weakly lab work. The Pt was not interested in the [facility] bed. She could not go home due to the cost of the antibiotics. The best might be a TCU in [place] and get the antibiotics out- patient at the . Will discuss with the bottle caser Saturday. Since her Plt count has not recovered yet, I am holding the Capecitabine. Will continue daily labs and daily electrolytes replacement. On 10/31/20 Mrs Stafford was seen in her hospital room. She still had severe diarrhea during the week-end. Her Lomotil was increased with some decrease in the diarrhea. No pain. Her exam was unchanged. Her CBC showed a WBC of 5.9 with an ANC of 4.7; Hgb 10.7 g/dL; Plt 69,000. Glucose 121 mg/dL; [id number] mEq/L. Phosphorus 1.4 mg/dL; mag 1.7 mg/dL; albumin 1.9 g/dL. She received IV Mag and phosphate.As long as she has diarrhea, we need to keep her on IV fluids. If the diarrhea improves,she could goto a TCU and continue RT. If this does not work, she may need to go to [place] in a swing bed. On 11/01/20 Mrs Stafford was seen in her hospital room. She was sitting at the edge of the bed eating.She had a good appetite. No new complaints. The diarrhea was better. She only had 3 BM's by 7 pm. Her exam was unchanged. I did call the pathology lab. They are 1 week behind due to their move. Hope toget the pathology back in 2-3 days. Her lab work remained stable. Her WBC was 5.0 with an ANC of 3.8; Hgb 10.5 g/dL; Plt 72,000. Glucose 196 mg/dL; phosphorus 2.2 mg/dL and mag 1.5 mg/dL;Albumin 1.9 g/dL; LFT's unremarkable. Other chemistries were Nl. She received IV phosphate and mag. She was continued on RT. The Capecitabine continued to be held mainly due to her thrombocytopenia. On 11/02/20 Mrs Stafford was seen in her hospital room. She was feeling cold after coming back from the RT. She had no fever. She had still quite severe diarrhea.C diff was neg. Her exam was unchanged. Her lab work showed a WBC of 4.6; ANC 3.4; Hgb 9.3 g/dL; Plt 81,000. Glucose 196 mg/dL; phosphorus 2.2 mg/dL; mag 1.5 mg/dL; albumin 1.8 g/dL. Dietitian was working on her nutrition. Mag and phosphate were replaced IV. No chemo since her Plt count was still low and she was almost done with RT. Await placement. Pt too complex for a NH and did not want daily transfers from [place] where a swing bed was available.To continue RT as ordered. On 11/03/20 Mrs Stafford was seen in her hospital room. She continued to have diarrhea. She continuedto require electrolytes IV replacement. She had some back pain. Eating well. Her exam was unchanged.Her CBC showed a WBC of 4.1 with an ANC of 3.2; Hgb 9.8 and Plt 69,000. Glucose was 302 mg/dL; sodium 133 mEq/L. Phosphate 2.2 mg/dL; mag 1.4 mg/dL; albumin 1.8 g/dL. Electrolyte IV replacement was ordered. We discussed placement. She did not really want to go to [place]. Nevertheless,I feel that [facility] bed would be the best for her in view of her complexity. [place]. To be discussed with the bottle caser. Review of Systems Constitutional: Positive for fatigue. Negative for appetite change, chills, diaphoresis, fever and unexpected weight change. HENT: Positive for hearing loss. Eyes: Negative. Respiratory: Negative. Cardiovascular: Negative. Gastrointestinal: Positive for diarrhea. Negative for abdominal pain, nausea and vomiting. Endocrine: Negative. Genitourinary: Negative. Musculoskeletal: Positive for back pain. Skin: Positive for wound. Neurological: Positive for extremity weakness. Hematological: Negative. Psychiatric/Behavioral: The patient is nervous/anxious. Physical / Results Current Vital Signs Temp: 97.6 F (36.4 C) BP: 105/56 Weight: 56.4 kg (124 lb 5.4 oz) SpO2: 97 % Resp: 18 Pulse: 82 Current BMI (>50 = increased risk): 23.5 O2 Device: Room Air Pain Ratin Maximum Temperatures (last 24 hours) Temperature Maximum Max Temp 98 F (36.7 C) Intake and Output: 11/02 0700 - 11/03 0659 In: 400 [Oral:400] Out: 350 [Urine:350] Physical Exam Constitutional: General: She is not in acute distress. Appearance: She is normal weight. She is not ill-appearing, toxic-appearing or diaphoretic. HENT: Head: Normocephalic. Nose: Nose normal. Mouth/Throat: Mouth: Mucous membranes are moist. Pharynx: Oropharynx is clear. No oropharyngeal exudate. Eyes: General: No scleral icterus. Conjunctiva/sclera: Conjunctivae normal. Pupils: Pupils are equal, round, and reactive to light. Neck: Musculoskeletal: Normal range of motion and neck supple. Cardiovascular: Rate and Rhythm: Normal rate and regular rhythm. Heart sounds: No murmur. Pulmonary: Effort: Pulmonary effort is normal. Breath sounds: Normal breath sounds. Abdominal: General: Abdomen is flat. Bowel sounds are normal. Palpations: Abdomen is soft. Musculoskeletal: Normal range of motion. General: No swelling or tenderness. Right lower leg: No edema. Left lower leg: No edema. 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 Skin: General: Skin is warm. Findings: Lesion present. Neurological: General: No focal deficit present. Mental Status: She is alert. Psychiatric: Comments: She seems apprehensive about her discharge. Results for BLAIR STAFFORD ( ) as of 11/03/2020 18:48 Ref. Range 11/03/2020 14:41 WBC Latest Ref Range: 4.0 - 11.0 K/uL 4.1 RBC Latest Ref Range: 3.80 - 5.30 M/uL 3.43 (L) Hemoglobin Latest Ref Range: 11.5 - 15.8 g/dL 9.8 (L) Hematocrit Latest Ref Range: 35.0 - 45.0 % 30.2 (L) MCV Latest Ref Range: 80.0 - 98.0 fL 88.0 MCH Latest Ref Range: 25.5 - 34.0 pg 28.6 MCHC Latest Ref Range: 31.5 - 36.5 g/dL 32.5 RDW-CV Latest Ref Range: 11.5 - 15.5 % 18.8 (H) RDW-SD Latest Ref Range: 35.5 - 50.0 fl 60.3 (H) Platelet Count Latest Ref Range: 140 - 400 K/uL 69 (L) MPV Latest Ref Range: 8.5 - 12.0 fL 12.9 (H) Seg Neut Absolute Latest Ref Range: 1.8 - 8.0 K/uL 3.2 Lymphocytes Absolute Latest Ref Range: 0.8 - 4.1 K/uL 0.2 (L) Monocytes Absolute Latest Ref Range: 0.0 - 1.0 K/uL 0.6 Eosinophils Absolute Latest Ref Range: 0.0 - 0.7 K/uL 0.1 Basophil Absolute Latest Ref Range: 0.0 - 0.2 K/uL 0.0 Immature Granulocyte Absolute Latest Ref Range: 0.00 - 0.06 K/uL 0.02 Neutrophils Percent Latest Units: % 78.5 Neutrophils Abs. (Segs and Bands) Latest Units: /uL 3,200 Lymphocytes Percent Latest Units: % 4.9 Monocytes Percent Latest Units: % 13.4 Immature Granulocyte Percent Latest Units: % 0.5 Eosinophils Percent Latest Units: % 2.2 Basophil Percent Latest Units: % 0.5 Nucleated RBC Latest Units: /100 WBC's 0 Glucose Latest Ref Range: 70 - 100 mg/dL 302 (H) Sodium Latest Ref Range: 135 - 145 meq/L 133 (L) Potassium Latest Ref Range: 3.5 - 5.3 meq/L 4.9 Chloride Latest Ref Range: 99 - 110 meq/L 109 CO2 Latest Ref Range: 20 - 29 meq/L 23 Anion Gap with K Latest Ref Range: 6 - 20 meq/L 6 BUN Latest Ref Range: 6 - 22 mg/dL 9 Creatinine Latest Ref Range: 0.60 - 1.10 mg/dL 0.68 BUN/Creatinine Ratio Latest Ref Range: 10.0 - 25.0 13.2 Calcium Latest Ref Range: 8.5 - 10.5 mg/dL 7.0 (L) Corrected Calcium Latest Ref Range: 8.5 - 10.5 mg/dL 8.8 Phosphorus Latest Ref Range: 2.5 - 4.5 mg/dL 2.2 (L) Magnesium Latest Ref Range: 1.8 - 2.4 mg/dL 1.4 (L) Albumin Latest Ref Range: 3.5 - 5.0 g/dL 1.8 (L) eGFR Latest Ref Range: >=60 mL/min/1.73m2 >90 eGFR Non- Latest Ref Range: >=60 mL/min/1.73m2 83 Protime Latest Ref Range: 12.0 - 14.5 secs 25.9 (H) INR Latest Ref Range: 2.0 - 3.5 2.4 STANT SURVEYOR Gertrude Thomas MD - 11/02/2020 6:20 PM CST Hematology/Oncology Daily Progress Note Blair Stafford is a 80yr old female admitted on 10/18/2020. 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 * Plan: Continue antibiotics per ID. Replace electrolytes IV. Continue RT. No chemo. We are approaching the end of RT. Her Plt count remains low. HPI / History / ROS HPI Mrs. Stafford is an 80-year-old white female patient who has been followed by me over the years for colon cancer. She also has problems with persistent thromboembolic disease. She is on chronic anticoagulation with warfarin. She was diagnosed recently with stage I lung cancer and a stage I cancer of the pancreas. We decided to approach the cancer of the pancreas first with chemoradiation. She started treatment a couple of weeks ago. Her chemotherapy is capecitabine as a radiosensitizer at a very low dose of 500 mg twice a day. I saw the patient on 10/18/2020 for routine followup. She complained of severe pain of the right 2nd finger. Her fingernail fell off and the tip of the finger fell off as well. The wound did not seem to be infected, but she had cellulitis of the right 2nd finger, and this was excruciatingly painful. She did try to take cephalexin that she had at home, but it did not help. In view of that, plus the fact that she had severe diarrhea, plus the fact that she was dehydrated, I did admit her for IV antibiotics and IV hydration. She also has hypokalemia, hypomagnesemia, hypophosphatemia, and these will need to be replaced intravenously since she is not able to tolerate lotsof oral replacement. I decided to treat her finger cellulitis with Rocephin. She received the 1st dose on 10/18/2020. When seen on 10/19/2020, her right 2nd finger had somewhat improved. I did request a hand surgery consultation, but this has not been done yet. She also has a diabetic ulcer on the right lower extremity, which is being taken care of by the wound nurse. Her lab work on 10/19/2020 showed a white count of 6,000, hemoglobin 11.4, platelet count 94,000. Differential count normal. Chemistries: Glucose 203, sodium 133, potassium 3.0, phosphorus 2.2, magnesium 2.0 after replacement. INR 2.0. I gave her more IV potassium and phosphate. She still has quite severe diarrhea despite taking Lomotil. She takes 2 tablets 4 times a day, which is a high dose, but it seems that that is what she needs to control the diarrhea. Once the diarrhea is controlled, I might go back on capecitabine. The patient is anxious to go home and does not want to stay in the hospital any longer than necessary. I told her that we better give her 5 days of IV antibiotics and try to get her finger in a better shape. Otherwise, if we stop the antibiotic therapy too soon, the cellulitis of the right 2nd finger might flare up again. She agreed to stay to complete her IV antibiotics. On 10/20/20 she had an XR of the Rt hand showing: FINDING: Bony irregularity and/or fracture second digit distal phalanx. Some soft tissue injury changes are also present correlate for recent trauma versus infection. On 10/20/20 Mrs Stafford was seen in her hospital room. She continued to improve. Eating better. The Rt 2nd finger was still hurting. She had a mild cough. The RLE ulcer was dressed. She had an JACQUI bandage around the Rt lower leg. She still had severe diarrhea despite the Lomotil. She had 6 BM's today.She did continue with the RT. Her exam was basically unchanged. Her lab work showed a WBC of 5.0 with an ANC of 4.0; Hgb 11.9 g/dL; Plt 104,000. Glucose 157 mg/dL; phosphorus 1.8 mg/dL; mag 1.5 mg/dL. Albumin 2.2 g/dL. Other chemistries were WNL. She still had evidence of protein/caloric malnutrition.The dietitian was consulted. She did receive her RT today. She requested to add Imodium to her Lomotil. I did order it. Awaiting opinion from hand surgery. For now,I continued Rocephin and replaced herelectrolytes IV. 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 He recommended amputation. The Pt declined. She said that she wanted to complete her RT first.ID consult was requested. On 10/21/20 she had a CXR showing: FINDINGS/IMPRESSION: The cardiac silhouette is normal in size. There is calcified atherosclerosis of the thoracic aorta. There is a 1.3 cm nodular opacity within the mid right lung which likely corresponds with the hypermetabolic nodule in the periphery of the right upper lobe on the prior PET/CT from 07/27/2020. No additional pulmonary nodules are identified. No focal airspace consolidation. No pneumothorax or pleural effusion. On 10/21/20 she was seen by Dr Burgos from ID. He did change the antibiotic to a combination of Cefepime/Metronidazole/Vancomycin. He felt that she should have surgery soon. On 10/21/20 I saw Mrs Stafford in her hospital room. She was feeling fairly well. Her diarrhea had improved. But she was not eating much. Her pain was at an acceptable level. Her exam was unchanged. I explained to her that she needed surgery soon. She agreed to have it done. I'll let Dr Casas know. Hope to have her surgery next week and resume her radiosensitizing chemotherapy. RT can continue since it has no effect on the finger.Her electrolytes were replaced IV. Her CXR was reviewed and felt unchanged. She had her Rt distal index finger amputated by Dr Casas on 10/24/20. She tolearted the procedure well. On 10/24/20 Mrs Stafford was seen in her hospital room after the amputation. She had no pain. She was started on Octreotide by Dr Maldonado this week-end. This seemed to have helped some. Her appetite remained good. She did receive her RT. Her exam was unchanged. Her Plt count was 97,000. Otherwise the CBC was unremarkable. Her chemistries were close to Nl. Phosphorus was 2.1 mg/dL; Albumin was 2.1 g/dL. Her INR was 2.4 and was reverted with FFP for the procedure. Continue antibiotics for now and check with ID. Continue daily RT. Resume Capecitabine in a few days. On 10/25/20 Mrs Stafford was seen in her hospital room. She had pain in the amputated finger. Her diarrhea had improved since on Octreotide. Eating well. Tolerating the RT well. Her exam was unchanged except for the amputated finger. Her CBC showed a WBC of 3.8 with an ANC of 2.8; Hgb 11.0 g/dL; Plt 74,000. Glucose 230 mg/dL; sodium 134 mEq/L. Phosphate 1.9 mg/dL; mag 2.0 mg/dL. Other values were Nl. Mag and phosphate were replaced.Antibiotics per ID. Await cultures and pathology. On 10/27/20 Mrs Stafford was seen in her hospital room. She said that on 10/26/20 she was very weak. Shefelt a little better on 10/27/20. She continued to have diarrhea. She continued to eat well. Her exam was unchanged. The amputated finger stump was dressed. The surgeon examined it and was satisfied withthe healing. Her exam was unchanged. Her lab work showed a WBC of 4.6 with an ANC of 3.5; Hgb 11.0 g/dL; Plt 58,000. Glucose 215 mg/dL; chloride 111 mEq/L. Phosphorus 1.3 mg/dL; mag 1.4 mg/dL; albumin 1.9 g/dL. She will need mag and phosphate replacements. In view of the thrombocytopenia, most likely caused by Vancomycin, I was not able to resume the Capecitabine. Continue daily monitoring of her counts and chemistries. On 10/28/20 Mrs Stafford was seen in her hospital room. She complained of extreme fatigue. She was eating well. Her legs remained weak. Her cough has resolved since she quit the nicotine patches. Her diarrhea did improve with the current regimen. She did receive her RT today. On exam, the Rt index finger stump was dressed. Her pain was acceptable. Her lab work showed a WBC of 7.3 with an ANC of 5.8; Hgb 11.5 g/dL; Plt 63,000. Phosphorus was 1.3 mg/dL;mag was 1.3 mg/dL; albumin was 2.0 g/dL. Other values were Nl. I did review Dr Burgos's recommendations for antibiotic therapy. He recommended to continue Cefepime/Vanco/Metronidazole while in the hospital. At discharge,he recommends Ertapenem and Daptomycin. The duration of treatment will depend on the pathology. Dr Burgos will see her out-patient in 1-2 weeks to decide. She may need antibiotics till 12/05/20. She will require weakly lab work. The Pt was not interested in the [facility] bed. She could not go home due to the cost of the antibiotics. The best might be a TCU in [place] and get the antibiotics out- patient at the . Will discuss with the bottle caser Saturday. Since her Plt count has not recovered yet, I am holding the Capecitabine. Will continue daily labs and daily electrolytes replacement. On 10/31/20 Mrs Stafford was seen in her hospital room. She still had severe diarrhea during the week-end. Her Lomotil was increased with some decrease in the diarrhea. No pain. Her exam was unchanged. Her CBC showed a WBC of 5.9 with an ANC of 4.7; Hgb 10.7 g/dL; Plt 69,000. Glucose 121 mg/dL; [id number] mEq/L. Phosphorus 1.4 mg/dL; mag 1.7 mg/dL; albumin 1.9 g/dL. She received IV Mag and phosphate.As long as she has diarrhea, we need to keep her on IV fluids. If the diarrhea improves,she could goto a TCU and continue RT. If this does not work, she may need to go to [place] in a swing bed. On 11/01/20 Mrs Stafofrd was seen in her hospital room. She was sitting at the edge of the bed eating.She had a good appetite. No new complaints. The diarrhea was better. She only had 3 BM's by 7 pm. Her exam was unchanged. I did call the pathology lab. They are 1 week behind due to their move. Hope toget the pathology back in 2-3 days. Her lab work remained stable. Her WBC was 5.0 with an ANC of 3.8; Hgb 10.5 g/dL; Plt 72,000. Glucose 196 mg/dL; phosphorus 2.2 mg/dL and mag 1.5 mg/dL;Albumin 1.9 g/dL; LFT's unremarkable. Other chemistries were Nl. She received IV phosphate and mag. She was continued on RT. The Capecitabine continued to be held mainly due to her thrombocytopenia. On 11/02/20 Mrs Stafford was seen in her hospital room. She was feeling cold after coming back from the RT. She had no fever. She had still quite severe diarrhea.C diff was neg. Her exam was unchanged. Her lab work showed a WBC of 4.6; ANC 3.4; Hgb 9.3 g/dL; Plt 81,000. Glucose 196 mg/dL; phosphorus 2.2 mg/dL; mag 1.5 mg/dL; albumin 1.8 g/dL. Dietitian was working on her nutrition. Mag and phosphate were replaced IV. No chemo since her Plt count was still low and she was almost done with RT. Await placement. Pt too complex for a NH and did not want daily transfers from [place] where a swing bed was available.To continue RT as ordered. Review of Systems Constitutional: Positive for chills and fatigue. Negative for appetite change, diaphoresis, fever and unexpected weight change. HENT: Positive for hearing loss. Eyes: Negative. Respiratory: Positive for cough. Negative for shortness of breath. Cardiovascular: Negative. Gastrointestinal: Positive for diarrhea. Negative for nausea and vomiting. Endocrine: Negative. Genitourinary: Negative. Skin: Positive for wound. Neurological: Positive for extremity weakness. Hematological: Negative. Psychiatric/Behavioral: Negative. Physical / Results Current Vital Signs Temp: 98 F (36.7 C) BP: 112/66 Weight: 54.9 kg (121 lb 0.5 oz) SpO2: 92 % Resp: 18 Pulse: 75 Current BMI (>50 = increased risk): 23.5 O2 Device: Room Air Pain Ratin Maximum Temperatures (last 24 hours) Temperature Maximum Max Temp 98 F (36.7 C) Intake and Output: 11/01 0700 - 11/02 0659 In: 1696 [Oral:280] Out: 800 [Urine:800] Physical Exam Constitutional: General: She is not in acute distress. Appearance: Normal appearance. She is normal weight. She is not ill- appearing, toxic-appearing ordiaphoretic. HENT: Head: Normocephalic. Nose: Nose normal. Eyes: General: No scleral icterus. Conjunctiva/sclera: Conjunctivae normal. Pupils: Pupils are equal, round, and reactive to light. Neck: Musculoskeletal: Normal range of motion and neck supple. Cardiovascular: Rate and Rhythm: Normal rate and regular rhythm. Heart sounds: No murmur. Pulmonary: Effort: Pulmonary effort is normal. Breath sounds: Normal breath sounds. Abdominal: General: Abdomen is flat. Bowel sounds are normal. Palpations: Abdomen is soft. Musculoskeletal: Normal range of motion. General: No swelling. Right lower leg: No edema. Left lower leg: No edema. Skin: General: Skin is warm. Coloration: Skin is not jaundiced or pale. Findings: Lesion present. Neurological: General: No focal deficit present. Mental Status: She is alert. Psychiatric: Mood and Affect: Mood normal. Results for BLAIR STAFFORD ( ) as of 11/02/2020 18:21 Ref. Range 11/02/2020 06:06 WBC Latest Ref Range: 4.0 - 11.0 K/uL 4.6 RBC Latest Ref Range: 3.80 - 5.30 M/uL 3.31 (L) Hemoglobin Latest Ref Range: 11.5 - 15.8 g/dL 9.3 (L) Hematocrit Latest Ref Range: 35.0 - 45.0 % 29.2 (L) MCV Latest Ref Range: 80.0 - 98.0 fL 88.2 MCH Latest Ref Range: 25.5 - 34.0 pg 28.1 MCHC Latest Ref Range: 31.5 - 36.5 g/dL 31.8 RDW-CV Latest Ref Range: 11.5 - 15.5 % 18.5 (H) RDW-SD Latest Ref Range: 35.5 - 50.0 fl 58.8 (H) Platelet Count Latest Ref Range: 140 - 400 K/uL 81 (L) MPV Latest Ref Range: 8.5 - 12.0 fL 12.5 (H) Seg Neut Absolute Latest Ref Range: 1.8 - 8.0 K/uL 3.4 Lymphocytes Absolute Latest Ref Range: 0.8 - 4.1 K/uL 0.4 (L) Monocytes Absolute Latest Ref Range: 0.0 - 1.0 K/uL 0.7 Eosinophils Absolute Latest Ref Range: 0.0 - 0.7 K/uL 0.1 Basophil Absolute Latest Ref Range: 0.0 - 0.2 K/uL 0.0 Immature Granulocyte Absolute Latest Ref Range: 0.00 - 0.06 K/uL 0.05 Neutrophils Percent Latest Units: % 73.0 Neutrophils Abs. (Segs and Bands) Latest Units: /uL 3,400 Lymphocytes Percent Latest Units: % 7.6 Monocytes Percent Latest Units: % 15.1 Immature Granulocyte Percent Latest Units: % 1.1 Eosinophils Percent Latest Units: % 3.0 Basophil Percent Latest Units: % 0.2 Nucleated RBC Latest Units: /100 WBC's 0 Glucose Latest Ref Range: 70 - 100 mg/dL 196 (H) Sodium Latest Ref Range: 135 - 145 meq/L 135 Potassium Latest Ref Range: 3.5 - 5.3 meq/L 4.6 Chloride Latest Ref Range: 99 - 110 meq/L 110 CO2 Latest Ref Range: 20 - 29 meq/L 21 Anion Gap with K Latest Ref Range: 6 - 20 meq/L 9 BUN Latest Ref Range: 6 - 22 mg/dL 10 Creatinine Latest Ref Range: 0.60 - 1.10 mg/dL 0.59 (L) BUN/Creatinine Ratio Latest Ref Range: 10.0 - 25.0 16.9 Calcium Latest Ref Range: 8.5 - 10.5 mg/dL 7.1 (L) Corrected Calcium Latest Ref Range: 8.5 - 10.5 mg/dL 8.9 Phosphorus Latest Ref Range: 2.5 - 4.5 mg/dL 2.2 (L) Magnesium Latest Ref Range: 1.8 - 2.4 mg/dL 1.5 (L) Albumin Latest Ref Range: 3.5 - 5.0 g/dL 1.8 (L) eGFR Latest Ref Range: >=60 mL/min/1.73m2 >90 eGFR Non- Latest Ref Range: >=60 mL/min/1.73m2 >90 Protime Latest Ref Range: 12.0 - 14.5 secs 22.6 (H) INR Latest Ref Range: 2.0 - 3.5 2.0 STANT SURVEYOR Gertrude Thomas MD - 11/01/2020 6:50 PM CST Hematology/Oncology Daily Progress Note Blair Stafford is a 80yr old female admitted on 10/18/2020. 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 * Plan: Continue antibiotics per ID. Replace electrolytes IV. Once done with antibiotics,she could go home. Otherwise she'll need placement. No chemo due to thrombocytopenia. HPI / History / ROS HPI Mrs. Stafford is an 80-year-old white female patient who has been followed by me over the years for colon cancer. She also has problems with persistent thromboembolic disease. She is on chronic anticoagulation with warfarin. She was diagnosed recently with stage I lung cancer and a stage I cancer of the pancreas. We decided to approach the cancer of the pancreas first with chemoradiation. She started treatment a couple of weeks ago. Her chemotherapy is capecitabine as a radiosensitizer at a very low dose of 500 mg twice a day. I saw the patient on 10/18/2020 for routine followup. She complained of severe pain of the right 2nd finger. Her fingernail fell off and the tip of the finger fell off as well. The wound did not seem to be infected, but she had cellulitis of the right 2nd finger, and this was excruciatingly painful. She did try to take cephalexin that she had at home, but it did not help. In view of that, plus the fact that she had severe diarrhea, plus the fact that she was dehydrated, I did admit her for IV antibiotics and IV hydration. She also has hypokalemia, hypomagnesemia, hypophosphatemia, and these will need to be replaced intravenously since she is not able to tolerate lotsof oral replacement. I decided to treat her finger cellulitis with Rocephin. She received the 1st dose on 10/18/2020. When seen on 10/19/2020, her right 2nd finger had somewhat improved. I did request a hand surgery consultation, but this has not been done yet. She also has a diabetic ulcer on the right lower extremity, which is being taken care of by the wound nurse. Her lab work on 10/19/2020 showed a white count of 6,000, hemoglobin 11.4, platelet count 94,000. Differential count normal. Chemistries: Glucose 203, sodium 133, potassium 3.0, phosphorus 2.2, magnesium 2.0 after replacement. INR 2.0. I gave her more IV potassium and phosphate. She still has quite severe diarrhea despite taking Lomotil. She takes 2 tablets 4 times a day, which is a high dose, but it seems that that is what she needs to control the diarrhea. Once the diarrhea is controlled, I might go back on capecitabine. The patient is anxious to go home and does not want to stay in the hospital any longer than necessary. I told her that we better give her 5 days of IV antibiotics and try to get her finger in a better shape. Otherwise, if we stop the antibiotic therapy too soon, the cellulitis of the right 2nd finger might flare up again. She agreed to stay to complete her IV antibiotics. On 10/20/20 she had an XR of the Rt hand showing: FINDING: Bony irregularity and/or fracture second digit distal phalanx. Some soft tissue injury changes are also present correlate for recent trauma versus infection. On 10/20/20 Mrs Stafford was seen in her hospital room. She continued to improve. Eating better. The Rt 2nd finger was still hurting. She had a mild cough. The RLE ulcer was dressed. She had an JACQUI bandage around the Rt lower leg. She still had severe diarrhea despite the Lomotil. She had 6 BM's today.She did continue with the RT. Her exam was basically unchanged. Her lab work showed a WBC of 5.0 with an ANC of 4.0; Hgb 11.9 g/dL; Plt 104,000. Glucose 157 mg/dL; phosphorus 1.8 mg/dL; mag 1.5 mg/dL. Albumin 2.2 g/dL. Other chemistries were WNL. She still had evidence of protein/caloric malnutrition.The dietitian was consulted. She did receive her RT today. She requested to add Imodium to her Lomotil. I did order it. Awaiting opinion from hand surgery. For now,I continued Rocephin and replaced herelectrolytes IV. 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 He recommended amputation. The Pt declined. She said that she wanted to complete her RT first.ID consult was requested. On 10/21/20 she had a CXR showing: FINDINGS/IMPRESSION: The cardiac silhouette is normal in size. There is calcified atherosclerosis of the thoracic aorta. There is a 1.3 cm nodular opacity within the mid right lung which likely corresponds with the hypermetabolic nodule in the periphery of the right upper lobe on the prior PET/CT from 07/27/2020. No additional pulmonary nodules are identified. No focal airspace consolidation. No pneumothorax or pleural effusion. On 10/21/20 she was seen by Dr Burgos from ID. He did change the antibiotic to a combination of Cefepime/Metronidazole/Vancomycin. He felt that she should have surgery soon. On 10/21/20 I saw Mrs Stafford in her hospital room. She was feeling fairly well. Her diarrhea had improved. But she was not eating much. Her pain was at an acceptable level. Her exam was unchanged. I explained to her that she needed surgery soon. She agreed to have it done. I'll let Dr Csaas know. Hope to have her surgery next week and resume her radiosensitizing chemotherapy. RT can continue since it has no effect on the finger.Her electrolytes were replaced IV. Her CXR was reviewed and felt unchanged. She had her Rt distal index finger amputated by Dr Casas on 10/24/20. She tolearted the procedure well. On 10/24/20 Mrs Stafford was seen in her hospital room after the amputation. She had no pain. She was started on Octreotide by Dr Maldonado this week-end. This seemed to have helped some. Her appetite remained good. She did receive her RT. Her exam was unchanged. Her Plt count was 97,000. Otherwise the CBC was unremarkable. Her chemistries were close to Nl. Phosphorus was 2.1 mg/dL; Albumin was 2.1 g/dL. Her INR was 2.4 and was reverted with FFP for the procedure. Continue antibiotics for now and check with ID. Continue daily RT. Resume Capecitabine in a few days. On 10/25/20 Mrs Stafford was seen in her hospital room. She had pain in the amputated finger. Her diarrhea had improved since on Octreotide. Eating well. Tolerating the RT well. Her exam was unchanged except for the amputated finger. Her CBC showed a WBC of 3.8 with an ANC of 2.8; Hgb 11.0 g/dL; Plt 74,000. Glucose 230 mg/dL; sodium 134 mEq/L. Phosphate 1.9 mg/dL; mag 2.0 mg/dL. Other values were Nl. Mag and phosphate were replaced.Antibiotics per ID. Await cultures and pathology. On 10/27/20 Mrs Stafford was seen in her hospital room. She said that on 10/26/20 she was very weak. Shefelt a little better on 10/27/20. She continued to have diarrhea. She continued to eat well. Her exam was unchanged. The amputated finger stump was dressed. The surgeon examined it and was satisfied withthe healing. Her exam was unchanged. Her lab work showed a WBC of 4.6 with an ANC of 3.5; Hgb 11.0 g/dL; Plt 58,000. Glucose 215 mg/dL; chloride 111 mEq/L. Phosphorus 1.3 mg/dL; mag 1.4 mg/dL; albumin 1.9 g/dL. She will need mag and phosphate replacements. In view of the thrombocytopenia, most likely caused by Vancomycin, I was not able to resume the Capecitabine. Continue daily monitoring of her counts and chemistries. On 10/28/20 Mrs Stafford was seen in her hospital room. She complained of extreme fatigue. She was eating well. Her legs remained weak. Her cough has resolved since she quit the nicotine patches. Her diarrhea did improve with the current regimen. She did receive her RT today. On exam, the Rt index finger stump was dressed. Her pain was acceptable. Her lab work showed a WBC of 7.3 with an ANC of 5.8; Hgb 11.5 g/dL; Plt 63,000. Phosphorus was 1.3 mg/dL;mag was 1.3 mg/dL; albumin was 2.0 g/dL. Other values were Nl. I did review Dr Burgos's recommendations for antibiotic therapy. He recommended to continue Cefepime/Vanco/Metronidazole while in the hospital. At discharge,he recommends Ertapenem and Daptomycin. The duration of treatment will depend on the pathology. Dr Burgos will see her out-patient in 1-2 weeks to decide. She may need antibiotics till 12/05/20. She will require weakly lab work. The Pt was not interested in the [facility] bed. She could not go home due to the cost of the antibiotics. The best might be a TCU in [place] and get the antibiotics out- patient at the . Will discuss with the bottle caser Saturday. Since her Plt count has not recovered yet, I am holding the Capecitabine. Will continue daily labs and daily electrolytes replacement. On 10/31/20 Mrs Stafford was seen in her hospital room. She still had severe diarrhea during the week-end. Her Lomotil was increased with some decrease in the diarrhea. No pain. Her exam was unchanged. Her CBC showed a WBC of 5.9 with an ANC of 4.7; Hgb 10.7 g/dL; Plt 69,000. Glucose 121 mg/dL; [id number] mEq/L. Phosphorus 1.4 mg/dL; mag 1.7 mg/dL; albumin 1.9 g/dL. She received IV Mag and phosphate.As long as she has diarrhea, we need to keep her on IV fluids. If the diarrhea improves,she could goto a TCU and continue RT. If this does not work, she may need to go to [place] in a swing bed. On 11/01/20 Mrs Stafford was seen in her hospital room. She was sitting at the edge of the bed eating.She had a good appetite. No new complaints. The diarrhea was better. She only had 3 BM's by 7 pm. Her exam was unchanged. I did call the pathology lab. They are 1 week behind due to their move. Hope toget the pathology back in 2-3 days. Her lab work remained stable. Her WBC was 5.0 with an ANC of 3.8; Hgb 10.5 g/dL; Plt 72,000. Glucose 196 mg/dL; phosphorus 2.2 mg/dL and mag 1.5 mg/dL;Albumin 1.9 g/dL; LFT's unremarkable. Other chemistries were Nl. She received IV phosphate and mag. She was continued on RT. The Capecitabine continued to be held mainly due to her thrombocytopenia. Review of Systems Constitutional: Positive for fatigue. Negative for appetite change, chills, diaphoresis, fever and unexpected weight change. HENT: Positive for hearing loss. Eyes: Negative. Respiratory: Negative. Cardiovascular: Negative. Gastrointestinal: Positive for diarrhea. Negative for nausea and vomiting. Endocrine: Negative. Genitourinary: Negative. Skin: Positive for wound. Neurological: Positive for extremity weakness. Hematological: Negative. Psychiatric/Behavioral: Negative. Physical / Results Current Vital Signs Temp: 97.9 F (36.6 C) BP: 129/82 Weight: 54.9 kg (121 lb 0.5 oz) SpO2: 97 % Resp: 16 Pulse: 88 Current BMI (>50 = increased risk): 23.5 O2 Device: Room Air Pain Ratin Maximum Temperatures (last 24 hours) Temperature Maximum Max Temp 97.9 F (36.6 C) Intake and Output: 10/31 0700 - 11/01 0659 In: 1558 [Oral:1050] Out: 1400 [Urine:1400] Physical Exam Constitutional: General: She is not in acute distress. Appearance: She is normal weight. She is not ill-appearing, toxic-appearing or diaphoretic. HENT: Head: Normocephalic. Nose: Nose normal. Mouth/Throat: Mouth: Mucous membranes are moist. Eyes: General: No scleral icterus. Conjunctiva/sclera: Conjunctivae normal. Pupils: Pupils are equal, round, and reactive to light. Neck: Musculoskeletal: Normal range of motion and neck supple. Cardiovascular: Rate and Rhythm: Normal rate and regular rhythm. Heart sounds: No murmur. Pulmonary: Effort: Pulmonary effort is normal. Breath sounds: Normal breath sounds. Abdominal: General: Abdomen is flat. Bowel sounds are normal. Palpations: Abdomen is soft. Musculoskeletal: Normal range of motion. Right lower leg: No edema. Left lower leg: No edema. Comments: Tip of the Rt 2nd finger has been amputated. Skin: General: Skin is warm. Findings: Lesion present. Neurological: General: No focal deficit present. Mental Status: She is alert. Psychiatric: Mood and Affect: Mood normal. Results for BLAIR STAFFORD ( ) as of 11/01/2020 18:51 Ref. Range 11/01/2020 05:43 WBC Latest Ref Range: 4.0 - 11.0 K/uL 5.0 RBC Latest Ref Range: 3.80 - 5.30 M/uL 3.62 (L) Hemoglobin Latest Ref Range: 11.5 - 15.8 g/dL 10.5 (L) Hematocrit Latest Ref Range: 35.0 - 45.0 % 32.5 (L) MCV Latest Ref Range: 80.0 - 98.0 fL 89.8 MCH Latest Ref Range: 25.5 - 34.0 pg 29.0 MCHC Latest Ref Range: 31.5 - 36.5 g/dL 32.3 RDW-CV Latest Ref Range: 11.5 - 15.5 % 18.1 (H) RDW-SD Latest Ref Range: 35.5 - 50.0 fl 58.5 (H) Platelet Count Latest Ref Range: 140 - 400 K/uL 72 (L) MPV Latest Ref Range: 8.5 - 12.0 fL 13.4 (H) Seg Neut Absolute Latest Ref Range: 1.8 - 8.0 K/uL 3.8 Lymphocytes Absolute Latest Ref Range: 0.8 - 4.1 K/uL 0.3 (L) Monocytes Absolute Latest Ref Range: 0.0 - 1.0 K/uL 0.6 Eosinophils Absolute Latest Ref Range: 0.0 - 0.7 K/uL 0.1 Basophil Absolute Latest Ref Range: 0.0 - 0.2 K/uL 0.0 Immature Granulocyte Absolute Latest Ref Range: 0.00 - 0.06 K/uL 0.04 Neutrophils Percent Latest Units: % 77.4 Neutrophils Abs. (Segs and Bands) Latest Units: /uL 3,800 Lymphocytes Percent Latest Units: % 6.9 Monocytes Percent Latest Units: % 12.5 Immature Granulocyte Percent Latest Units: % 0.8 Eosinophils Percent Latest Units: % 2.2 Basophil Percent Latest Units: % 0.2 Nucleated RBC Latest Units: /100 WBC's 0 Platelet Morphology Unknown Normal RBC Morphology Unknown Normal Glucose Latest Ref Range: 70 - 100 mg/dL 196 (H) Sodium Latest Ref Range: 135 - 145 meq/L 135 Potassium Latest Ref Range: 3.5 - 5.3 meq/L 4.6 Chloride Latest Ref Range: 99 - 110 meq/L 109 CO2 Latest Ref Range: 20 - 29 meq/L 23 Anion Gap with K Latest Ref Range: 6 - 20 meq/L 8 BUN Latest Ref Range: 6 - 22 mg/dL 10 Creatinine Latest Ref Range: 0.60 - 1.10 mg/dL 0.61 BUN/Creatinine Ratio Latest Ref Range: 10.0 - 25.0 16.4 Calcium Latest Ref Range: 8.5 - 10.5 mg/dL 7.2 (L) Corrected Calcium Latest Ref Range: 8.5 - 10.5 mg/dL 8.9 Phosphorus Latest Ref Range: 2.5 - 4.5 mg/dL 2.2 (L) Magnesium Latest Ref Range: 1.8 - 2.4 mg/dL 1.5 (L) Bilirubin Total Latest Ref Range: 0.2 - 1.2 mg/dL 0.8 Bilirubin Direct Latest Ref Range: 0.0 - 0.4 mg/dL 0.6 (H) Bilirubin Indirect Latest Ref Range: 0.0 - 0.8 mg/dL 0.2 Alkaline Phosphatase Latest Ref Range: 30 - 150 U/L 95 ALT - SGPT Latest Ref Range: 0 - 55 U/L 9 AST - SGOT Latest Ref Range: 0 - 35 U/L 16 Protein Total Latest Ref Range: 6.0 - 8.2 g/dL 6.1 Albumin Latest Ref Range: 3.5 - 5.0 g/dL 1.9 (L) eGFR Latest Ref Range: >=60 mL/min/1.73m2 >90 eGFR Non- Latest Ref Range: >=60 mL/min/1.73m2 >90 Protime Latest Ref Range: 12.0 - 14.5 secs 23.4 (H) INR Latest Ref Range: 2.0 - 3.5 2.1 STANT SURVEYOR Gertrude Thomas MD - 10/31/2020 5:26 PM CST Hematology/Oncology Daily Progress Note Blair Stafford is a 80yr old female admitted on 10/18/2020. 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 * Plan: Replace electrolytes IV. C diff if the diarrhea persists. Continue RT. No chemo due to thrombocytopenia and diarrhea. HPI / History / ROS HPI Mrs. Stafford is an 80-year-old white female patient who has been followed by me over the years for colon cancer. She also has problems with persistent thromboembolic disease. She is on chronic anticoagulation with warfarin. She was diagnosed recently with stage I lung cancer and a stage I cancer of the pancreas. We decided to approach the cancer of the pancreas first with chemoradiation. She started treatment a couple of weeks ago. Her chemotherapy is capecitabine as a radiosensitizer at a very low dose of 500 mg twice a day. I saw the patient on 10/18/2020 for routine followup. She complained of severe pain of the right 2nd finger. Her fingernail fell off and the tip of the finger fell off as well. The wound did not seem to be infected, but she had cellulitis of the right 2nd finger, and this was excruciatingly painful. She did try to take cephalexin that she had at home, but it did not help. In view of that, plus the fact that she had severe diarrhea, plus the fact that she was dehydrated, I did admit her for IV antibiotics and IV hydration. She also has hypokalemia, hypomagnesemia, hypophosphatemia, and these will need to be replaced intravenously since she is not able to tolerate lotsof oral replacement. I decided to treat her finger cellulitis with Rocephin. She received the 1st dose on 10/18/2020. When seen on 10/19/2020, her right 2nd finger had somewhat improved. I did request a hand surgery consultation, but this has not been done yet. She also has a diabetic ulcer on the right lower extremity, which is being taken care of by the wound nurse. Her lab work on 10/19/2020 showed a white count of 6,000, hemoglobin 11.4, platelet count 94,000. Differential count normal. Chemistries: Glucose 203, sodium 133, potassium 3.0, phosphorus 2.2, magnesium 2.0 after replacement. INR 2.0. I gave her more IV potassium and phosphate. She still has quite severe diarrhea despite taking Lomotil. She takes 2 tablets 4 times a day, which is a high dose, but it seems that that is what she needs to control the diarrhea. Once the diarrhea is controlled, I might go back on capecitabine. The patient is anxious to go home and does not want to stay in the hospital any longer than necessary. I told her that we better give her 5 days of IV antibiotics and try to get her finger in a better shape. Otherwise, if we stop the antibiotic therapy too soon, the cellulitis of the right 2nd finger might flare up again. She agreed to stay to complete her IV antibiotics. On 10/20/20 she had an XR of the Rt hand showing: FINDING: Bony irregularity and/or fracture second digit distal phalanx. Some soft tissue injury changes are also present correlate for recent trauma versus infection. On 10/20/20 Mrs Stafford was seen in her hospital room. She continued to improve. Eating better. The Rt 2nd finger was still hurting. She had a mild cough. The RLE ulcer was dressed. She had an JACQUI bandage around the Rt lower leg. She still had severe diarrhea despite the Lomotil. She had 6 BM's today.She did continue with the RT. Her exam was basically unchanged. Her lab work showed a WBC of 5.0 with an ANC of 4.0; Hgb 11.9 g/dL; Plt 104,000. Glucose 157 mg/dL; phosphorus 1.8 mg/dL; mag 1.5 mg/dL. Albumin 2.2 g/dL. Other chemistries were WNL. She still had evidence of protein/caloric malnutrition.The dietitian was consulted. She did receive her RT today. She requested to add Imodium to her Lomotil. I did order it. Awaiting opinion from hand surgery. For now,I continued Rocephin and replaced herelectrolytes IV. 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 He recommended amputation. The Pt declined. She said that she wanted to complete her RT first.ID consult was requested. On 10/21/20 she had a CXR showing: FINDINGS/IMPRESSION: The cardiac silhouette is normal in size. There is calcified atherosclerosis of the thoracic aorta. There is a 1.3 cm nodular opacity within the mid right lung which likely corresponds with the hypermetabolic nodule in the periphery of the right upper lobe on the prior PET/CT from 07/27/2020. No additional pulmonary nodules are identified. No focal airspace consolidation. No pneumothorax or pleural effusion. On 10/21/20 she was seen by Dr Burgos from ID. He did change the antibiotic to a combination of Cefepime/Metronidazole/Vancomycin. He felt that she should have surgery soon. On 10/21/20 I saw Mrs Stafford in her hospital room. She was feeling fairly well. Her diarrhea had improved. But she was not eating much. Her pain was at an acceptable level. Her exam was unchanged. I explained to her that she needed surgery soon. She agreed to have it done. I'll let Dr Casas know. Hope to have her surgery next week and resume her radiosensitizing chemotherapy. RT can continue since it has no effect on the finger.Her electrolytes were replaced IV. Her CXR was reviewed and felt unchanged. She had her Rt distal index finger amputated by Dr Casas on 10/24/20. She tolearted the procedure well. On 10/24/20 Mrs Stafford was seen in her hospital room after the amputation. She had no pain. She was started on Octreotide by Dr Maldonado this week-end. This seemed to have helped some. Her appetite remained good. She did receive her RT. Her exam was unchanged. Her Plt count was 97,000. Otherwise the CBC was unremarkable. Her chemistries were close to Nl. Phosphorus was 2.1 mg/dL; Albumin was 2.1 g/dL. Her INR was 2.4 and was reverted with FFP for the procedure. Continue antibiotics for now and check with ID. Continue daily RT. Resume Capecitabine in a few days. On 10/25/20 Mrs Stafford was seen in her hospital room. She had pain in the amputated finger. Her diarrhea had improved since on Octreotide. Eating well. Tolerating the RT well. Her exam was unchanged except for the amputated finger. Her CBC showed a WBC of 3.8 with an ANC of 2.8; Hgb 11.0 g/dL; Plt 74,000. Glucose 230 mg/dL; sodium 134 mEq/L. Phosphate 1.9 mg/dL; mag 2.0 mg/dL. Other values were Nl. Mag and phosphate were replaced.Antibiotics per ID. Await cultures and pathology. On 10/27/20 Mrs Stafford was seen in her hospital room. She said that on 10/26/20 she was very weak. Shefelt a little better on 10/27/20. She continued to have diarrhea. She continued to eat well. Her exam was unchanged. The amputated finger stump was dressed. The surgeon examined it and was satisfied withthe healing. Her exam was unchanged. Her lab work showed a WBC of 4.6 with an ANC of 3.5; Hgb 11.0 g/dL; Plt 58,000. Glucose 215 mg/dL; chloride 111 mEq/L. Phosphorus 1.3 mg/dL; mag 1.4 mg/dL; albumin 1.9 g/dL. She will need mag and phosphate replacements. In view of the thrombocytopenia, most likely caused by Vancomycin, I was not able to resume the Capecitabine. Continue daily monitoring of her counts and chemistries. On 10/28/20 Mrs Stafford was seen in her hospital room. She complained of extreme fatigue. She was eating well. Her legs remained weak. Her cough has resolved since she quit the nicotine patches. Her diarrhea did improve with the current regimen. She did receive her RT today. On exam, the Rt index finger stump was dressed. Her pain was acceptable. Her lab work showed a WBC of 7.3 with an ANC of 5.8; Hgb 11.5 g/dL; Plt 63,000. Phosphorus was 1.3 mg/dL;mag was 1.3 mg/dL; albumin was 2.0 g/dL. Other values were Nl. I did review Dr Burgos's recommendations for antibiotic therapy. He recommended to continue Cefepime/Vanco/Metronidazole while in the hospital. At discharge,he recommends Ertapenem and Daptomycin. The duration of treatment will depend on the pathology. Dr Burgos will see her out-patient in 1-2 weeks to decide. She may need antibiotics till 12/05/20. She will require weakly lab work. The Pt was not interested in the [facility] bed. She could not go home due to the cost of the antibiotics. The best might be a TCU in [place] and get the antibiotics out- patient at the . Will discuss with the bottle caser Saturday. Since her Plt count has not recovered yet, I am holding the Capecitabine. Will continue daily labs and daily electrolytes replacement. On 10/31/20 Mrs Stafford was seen in her hospital room. She still had severe diarrhea during the week-end. Her Lomotil was increased with some decrease in the diarrhea. No pain. Her exam was unchanged. Her CBC showed a WBC of 5.9 with an ANC of 4.7; Hgb 10.7 g/dL; Plt 69,000. Glucose 121 mg/dL; [id number] mEq/L. Phosphorus 1.4 mg/dL; mag 1.7 mg/dL; albumin 1.9 g/dL. She received IV Mag and phosphate.As long as she has diarrhea, we need to keep her on IV fluids. If the diarrhea improves,she could goto a TCU and continue RT. If this does not work, she may need to go to [place] in a swing bed. Review of Systems Constitutional: Positive for fatigue. Negative for appetite change, chills, diaphoresis, fever and unexpected weight change. HENT: Positive for hearing loss. Eyes: Negative. Respiratory: Negative. Cardiovascular: Negative. Gastrointestinal: Positive for diarrhea. Negative for abdominal distention, abdominal pain, blood instool, constipation, nausea and vomiting. Endocrine: Negative. Genitourinary: Negative. Musculoskeletal: Positive for gait problem. Skin: Positive for wound. Neurological: Positive for extremity weakness and gait problem. Hematological: Negative. Psychiatric/Behavioral: Negative. Physical / Results Current Vital Signs Temp: 97.1 F (36.2 C) BP: 112/61 Weight: 55.1 kg (121 lb 7.6 oz) SpO2: 95 % Resp: 18 Pulse: 78 Current BMI (>50 = increased risk): 23.5 O2 Device: Room Air Pain Ratin Maximum Temperatures (last 24 hours) Temperature Maximum Max Temp 97.5 F (36.4 C) Intake and Output: 10/30 0700 - 10/31 0659 In: 2236 [Oral:480] Out: 400 [Urine:400] Physical Exam Constitutional: General: She is not in acute distress. Appearance: She is normal weight. She is not ill-appearing, toxic-appearing or diaphoretic. HENT: Head: Normocephalic. Nose: Nose normal. Mouth/Throat: Mouth: Mucous membranes are moist. Pharynx: Oropharynx is clear. No oropharyngeal exudate. Eyes: General: No scleral icterus. Conjunctiva/sclera: Conjunctivae normal. Pupils: Pupils are equal, round, and reactive to light. Neck: Musculoskeletal: Normal range of motion. Cardiovascular: Rate and Rhythm: Normal rate and regular rhythm. Heart sounds: No murmur. Pulmonary: Effort: Pulmonary effort is normal. No respiratory distress. Breath sounds: No stridor. No wheezing, rhonchi or rales. Chest: Chest wall: No tenderness. Abdominal: General: Abdomen is flat. Bowel sounds are normal. Palpations: Abdomen is soft. Musculoskeletal: Normal range of motion. General: No swelling. Right lower leg: No edema. Left lower leg: No edema. Skin: General: Skin is warm and dry. Coloration: Skin is not jaundiced or pale. Findings: Lesion present. No bruising, erythema or rash. Neurological: General: No focal deficit present. Mental Status: She is alert. Psychiatric: Mood and Affect: Mood normal. Results for BLAIR STAFFORD ( ) as of 10/31/2020 17:03 Ref. Range 10/31/2020 05:16 WBC Latest Ref Range: 4.0 - 11.0 K/uL 5.9 RBC Latest Ref Range: 3.80 - 5.30 M/uL 3.73 (L) Hemoglobin Latest Ref Range: 11.5 - 15.8 g/dL 10.7 (L) Hematocrit Latest Ref Range: 35.0 - 45.0 % 32.8 (L) MCV Latest Ref Range: 80.0 - 98.0 fL 87.9 MCH Latest Ref Range: 25.5 - 34.0 pg 28.7 MCHC Latest Ref Range: 31.5 - 36.5 g/dL 32.6 RDW-CV Latest Ref Range: 11.5 - 15.5 % 17.7 (H) RDW-SD Latest Ref Range: 35.5 - 50.0 fl 57.0 (H) Platelet Count Latest Ref Range: 140 - 400 K/uL 69 (L) Seg Neut Absolute Latest Ref Range: 1.8 - 8.0 K/uL 4.7 Lymphocytes Absolute Latest Ref Range: 0.8 - 4.1 K/uL 0.4 (L) Monocytes Absolute Latest Ref Range: 0.0 - 1.0 K/uL 0.7 Eosinophils Absolute Latest Ref Range: 0.0 - 0.7 K/uL 0.2 Basophil Absolute Latest Ref Range: 0.0 - 0.2 K/uL 0.0 Immature Granulocyte Absolute Latest Ref Range: 0.00 - 0.06 K/uL 0.04 Neutrophils Percent Latest Units: % 78.6 Neutrophils Abs. (Segs and Bands) Latest Units: /uL 4,700 Lymphocytes Percent Latest Units: % 6.3 Monocytes Percent Latest Units: % 11.5 Immature Granulocyte Percent Latest Units: % 0.7 Eosinophils Percent Latest Units: % 2.7 Basophil Percent Latest Units: % 0.2 Nucleated RBC Latest Units: /100 WBC's 0 Glucose Latest Ref Range: 70 - 100 mg/dL 121 (H) Sodium Latest Ref Range: 135 - 145 meq/L 135 Potassium Latest Ref Range: 3.5 - 5.3 meq/L 4.6 Chloride Latest Ref Range: 99 - 110 meq/L 111 (H) CO2 Latest Ref Range: 20 - 29 meq/L 22 Anion Gap with K Latest Ref Range: 6 - 20 meq/L 7 BUN Latest Ref Range: 6 - 22 mg/dL 8 Creatinine Latest Ref Range: 0.60 - 1.10 mg/dL 0.59 (L) BUN/Creatinine Ratio Latest Ref Range: 10.0 - 25.0 13.6 Calcium Latest Ref Range: 8.5 - 10.5 mg/dL 7.1 (L) Corrected Calcium Latest Ref Range: 8.5 - 10.5 mg/dL 8.8 Phosphorus Latest Ref Range: 2.5 - 4.5 mg/dL 1.4 (L) Magnesium Latest Ref Range: 1.8 - 2.4 mg/dL 1.7 (L) Albumin Latest Ref Range: 3.5 - 5.0 g/dL 1.9 (L) eGFR Latest Ref Range: >=60 mL/min/1.73m2 >90 eGFR Non- Latest Ref Range: >=60 mL/min/1.73m2 >90 Protime Latest Ref Range: 12.0 - 14.5 secs 25.9 (H) INR Latest Ref Range: 2.0 - 3.5 2.4 STANT SURVEYOR Sotero Garcia MD - 10/30/2020 9:58 AM CST HEMATOLOGY ONCOLOGY INPATIENT FOLLOWUP NOTE 10/30/2020 NAME: Blair Stafford is a 80yr old female HPI Ms. Stafford was seen in room 746 today. She was admitted with diarrhea and dehydration. Has been onradiation for localized pancreas cancer. Capecitabine on hold due to diarrhea. Also had osteomyelitis of the distal right index finger. 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 Post right hemicolectomy and ileostomy on 11/28/06. Received adjuvant XELOX from 05/13/07 till 10/30/07. Recurrence in the retroperitonal area. Resected on 06/03/08. Recent Stage IA1 ([id number]) adenocarcinoma of the RUL of the lung, diagnosed on 08/29/20 and Stage IB (T2N0M0) adenocarcinoma of th uncinate process of the pancreas, diagnosed on 09/05/20. The diarrhea is not any better. Went about 8 times yesterday. Does not have good control. Has been on scheduled loperamide and diphenoxylate/atropine. Also on scheduled octreotide. Breathing unremarkable. Has cramping pain today in her abdomen and in her hernias. No fever. No leg swelling. Has a chronic right leg ulcer. ECOG Performance Status 2 Medications Current Facility-Administered Medications Medication Dose Route Frequency Provider Last Rate Last Admin diphenoxylate-atropine (LOMOTIL) 2.5-0.025 mg tablet 2 tablet 2 tablet Oral Every 8 hours Sotero Garcia MD magnesium sulfate 2 gm/50 mL IV solution 4 g 4 g IV 1 time Sotero Garcia MD octreotide acetate (sandoSTATIN) injection solution 200 mcg 200 mcg Subcutaneous Every 8 hours Sotero Garcia MD 200 mcg at 10/30/20 0425 vancomycin therapy reminder 1 each Does not apply Upon permission Real Burgos MD cefepime (MAXIPIME) 2000 mg/20 mL in sterile water IV syringe 2,000 mg IV Every 12 hours Gertrude Thomas MD 2,000 mg at 10/30/20 0009 senna-docusate sodium (SENOKOT-S;PERICOLACE) tablet 1 tablet 1 tablet Oral 2 times a day Enrike Lincoln MD Stopped at 10/28/202112 loperamide (IMODIUM) capsule 4 mg 4 mg Oral Every 8 hours Maicol Maldonado MD 4 mg at 10/30/20 0639 sodium chloride 0.9% prefilled 10 mL syringe (Materials Management Item) 10 mL 10 mL IV 2 timesa day and prn Maicol Maldonado MD 10 mL at 10/27/20 1753 And hEParin 100 units/ mL injection for heplock FLUSH 3 mL IV 2 times a day and prn Maicol Maldonado MD 300 Units at 10/25/20 0519 metroNIDAZOLE (FLAGYL) tablet 500 mg 500 mg Oral 3 times a day Real Burgos MD 500 mg at 10/30/20 0809 influenza HIGH DOSE virus vaccine quadrivalent IM injection 0.7 mL 0.7 mL Intramuscular Prior to discharge Gertrude Thomas MD influenza immunization reminder 1 each Does not apply Immunization prior to discharge Gertrude Thomas MD acetaminophen (TYLENOL) tablet 500 mg 500 mg Oral Every 4 hours prn Gertrude Thomas MD 500 mg at 10/29/20 2217 gabapentin (NEURONTIN) capsule 600 mg 600 mg Oral 3 times a day Gertrude Thomas MD 600 mg at 10/30/20 0810 glipiZIDE ER (GLUCOTROL XL) extended release tablet (24 hr) 5 mg 5 mg Oral daily Gertrude Thomas MD 5 mg at 10/30/20 0813 [id number]-ljzjirj (CREON 12,000) 1238-60 KU capsule 1 capsule 1 capsule Oral 3 times a day with meals Gertrude Thomas MD 1 capsule at 10/30/20 0810 nicotine (NICODERM) 21mg/24hr patch 1 patch Transdermal daily Gertrude Thomas MD 21 mg at 10/20/20 0825 phytonadione (vitamin K) tablet 200 mcg 200 mcg Oral daily Gertrude Thomas MD 200 mcg at 10/30/20 0810 potassium chloride (KLOR-CON M20) CR tablet 20 mEq 20 mEq Oral 2 times a day Gertrude Thomas MD 20 mEq at 10/30/20 0810 triamcinolone acetonide (KENALOG,ARISTOCORT) 0.1 % cream Apply externally 2 times a day Gertrude Thomas MD Given at 10/30/20 0814 senna-docusate sodium (SENOKOT-S;PERICOLACE) tablet 1 tablet 1 tablet Oral 2 times a day prn Gertrude Thomas MD bisacodyl (DULCOLAX) suppository 10 mg 10 mg Rectal 1 time a day prn Gertrude Thomas MD ondansetron (ZOFRAN) injection solution 4 mg 4 mg IV Every 4 hours prn Gertrude Thomas MD 4mg at 10/23/20 1226 prochlorperazine (COMPAZINE) 10 mg/2 mL injection solution 5 mg 5 mg IV Every 6 hours prn Gertrude Thomas MD sodium chloride 0.9% flush (adult) 10 mL 10 mL IV 2 times a day and prn Gertrude Thomas MD 10 mL at 10/28/20 0948 potassium chloride 20mEq in sodium chloride 0.9% 1000 mL IV solution IV Continuous Gertrude Thomas MD 75 mL/hr at 10/30/20 0638 New Bag at 10/30/20 0638 HYDROmorphone (DILAUDID) injection solution (conc: 0.5 mg/0.5mL) 0.5 mg 0.5 mg IV Every 1 hour prn Gertrude Thomas MD 0.5 mg at 10/28/20 1437 HYDROmorphone (DILAUDID) injection solution (conc: 1 mg/mL) 1 mg 1 mg IV Every 1 hour prn Gertrude Thomas MD 1 mg at 10/25/20 1548 traZODone (DESYREL) tablet 50 mg 50 mg Oral Bedtime prn Gertrude Thomas MD multivitamin therapeutic with minerals (THERA-M) tablet 1 tablet 1 tablet Oral Daily Gertrude Thomas MD 1 tablet at 10/28/20 0818 dextrose 50% IV solution 50 mL 25 g IV PRN per parameter Gertrude Thomas MD glucagon for injection 1 mg vial 1 mg 1 mg Intramuscular PRN per parameter Gertrude Thomas MD dextrose chewable tablet 16 g 4 tablet Oral PRN per parameter Gertrude Thomas MD 16 g at 10/24/20 1127 Or carbohydrate 15 g 15 g Oral PRN per parameter Gertrude Thomas MD insulin aspart (NovoLOG) SQ correction scale (Adult) 2-8 Units Subcutaneous 3 times a day Gertrude Thomas MD 5 Units at 10/29/20 1812 .Anticoagulation (WARFARIN) therapy nursing reminder 1 each Does not apply Reminder Gertrude Thomas MD Facility-Administered Medications Ordered in Other Encounters Medication Dose Route Frequency Provider Last Rate Last Admin sodium chloride 0.9% injection solution 10-20 mL 10-20 mL IV PRN per parameter Irina Ordaz APRN-BRINDA heparin 100 units/ mL injection for heplock FLUSH 5 mL IV PRN per parameter Irina Ordaz APRN-BRINDA sodium chloride 0.9% prefilled 10 mL syringe (Materials Management Item) 20 mL 20 mL IV As often as necessary prn Ordaz, Irina A, MAT MAKING MACHINE TENDER-SHIP WASHER And heparin 100 units/ mL injection for heplock FLUSH 500 Units IV As often as necessary prn Irina Ordaz MAT MAKING MACHINE TENDER-SHIP WASHER sodium chloride (vial) 0.9% flush 20 mL 20 mL IV As often as necessary prn Irina Ordaz MAT MAKING MACHINE TENDER-SHIP WASHER heparin 100 units/ mL injection for heplock FLUSH 5 mL IV 1 time Irina Ordaz MAT MAKING MACHINE TENDER-BRINDA sodium chloride (vial) 0.9% flush 20 mL 20 mL IV As often as necessary prn Irina Ordaz MAT MAKING MACHINE TENDER-SHIP WASHER heparin 100 units/ mL injection for heplock FLUSH 5 mL IV 1 time Irina Ordaz MAT MAKING MACHINE TENDER-SHIP WASHER Allergies Allergies Allergen Reactions Penicillin Hives (High) Adhesives Rash Mepilex Border dressing Bactericin [Bacitracin] Unknown/Not Verified Cortisporin [Bkcqmdwn-Sgkfvvshv-Zn] Rash Hydrocortisone [Cortizone] Unknown/Not Verified Levofloxacin Itching and Rash Lincocin Unknown/Not Verified [facility] Ca Alginate 2"X2" [Alginate - Carboxymethylcellulose - Silver] Unknown/Not Verified Patient unable to give me symptoms Monistat [Tioconazole] Unknown/Not Verified Septra [Sulfamethoxazole W-Trimethoprim] Unknown/Not Verified Silvadene [Silver Sulfadiazine] Other (Specify in Comments) Blister with silvadene cream, anything with silver (aquacel wound products) Silver Picrate Rash Silver products Soap Itching Hospital soap and lotions, uses dove. 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) Finger infection Hypophosphatemia Hypomagnesemia Malignant neoplasm of head of pancreas (HCC) Adenocarcinoma, lung, right (HCC) Hypokalemia Pancreatic cancer (HCC) Malignant neoplasm of upper lobe of right lung (HCC) Lung nodule Pancreatic mass Thymoma Coughing Sepsis (HCC) CE (acute kidney injury) (HCC) Diarrhea, unspecified NSTEMI (non-ST elevated myocardial infarction) (HCC) Acute kidney injury (HCC) Cough Elevated factor VIII level Iron deficiency Anemia Fatigue Encounter for central line care Tobacco abuse Peripheral vascular disease (HCC) 2005: Nonhealing right sweet ulcer in the setting of severe PVD. Underwent RCFA to above knee popliteal artery bypass with PTFE (8 mm); Dr. Haider. Ulceration healed well after surgery. 2011: Nonhealing right heel ulcer with occlusion previous graft and occlusion RSFA. Underwent redoright femoral to above knee popliteal bypass with 6 mm ringed Poupart Goretex graft and debridement of ulcer. As of October,, ulcer has not healed. Ischemic heel ulcer ([facility]) May 2012: Abrasion right heel from her wheelchair which developed into infected ulcer. November and April 2013: Hospitalized here for above. September 2013: Hospitalized in [place] for infected right heel ulcer for 10 day acute hospital stay,then 3 wks swing bed for IV vancomycin. Cultures showed pseudomonas, MRSA, and Grp B beta strep. Only partial healing. Referred to IR for this as well as known PVD with markedly abnormal ABIs. 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 while undergoing colon cancer treatment) flipped and unable to access. Port removed; new port placed. October 2009: Port pocket infection (MRSA); irrigated and then placed on doxycycline and Diflucan. Good closure and healing. November 2009: Developed SVC syndrome with facial swelling. Heparinized and underwent venogram of RUEvenous system to the SVC. Found to have stenosis right subclavian, brachiocephalic, and upper IVC which all responded well to 12 mm HEAD PAPER TESTER. Also noted to have high grade stenosis lower RIJ which responded well to 12 mm HEAD PAPER TESTER. [place] to also have persistent left central venous obstruction. Facial swellingimproved. Deep vein thrombosis of left lower extremity (HCC) January 2007: Developed DVT during periods of inactivity associated with her multiple abdominal surgeries for cancer. Started on warfarin; no PE. Thrombosis of subclavian artery (HCC) Heterozygous factor V Leiden mutation ([facility]) Pt and daughter report that she has Factor V Leiden mutation; on warfarin since 2006 at which timeshe had DVT. 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 Found to have large inflammatory mass at hepatic flexure; pathology showed adenocarcinoma. Underwent righthemicolectomy, omentectomy, and colostomy. Developed wound dehiscence 9 days postop; underwent placement of retention sutures. Discharged after total acute stay of 23 days to TCU[facility] [place] April 2007: Started chemotherapy under the direction of Dr. Thomas (XELOX x8 cycles from April 2007 to October 2007). December 2007: Colostomy takedown with reanastomosis complicated by wound dehiscence and MRSA ([facility]). Healed with packing. May 2008: As CEA was elevated and CT showed 2 cm lesion inferior to RL liver, underwent exploratory laparotomy, lysis of adhesions, partial hepatic resection, ventral hernia repair. Pathology showed metastatic adenocarcinoma. Again had wound dehiscence and MRSA with prolonged healing. Followedby ID. Treated with LT Zyvox. She has followed with Dr. Thomas; last CEA April 2013 was 2.1 ROS General: no chills, has fatigue, no fever, no unexpected weight changes Psychological: mood and affect are normal Ophthalmic: no blurry vision, no decreased vision ENT:no mouth sores, no thrush, no nose bleed, no sinus pain, no sore throat Respiratory: no cough, no shortness of breath, no wheezing Cardiovascular: no chest pain, no leg swelling Gastrointestinal: no vomiting, occasional cramping pain, no black stools Heme: no bleeding, no bruising Genito-Urinary: no dysuria, no trouble voiding, no hematuria Lymphatics: no swollen glands Neurological: no weakness, no numbness, no tingling, no headache Dermatological: no rash, no skin changes Physical Exam BP 132/65 Pulse 94 Temp 97.1 F (36.2 C) Resp 18 Ht 1.499 m (4' 11") Wt 54.5 kg (120 lb 2.4 oz) SpO2 97% BMI 24.27 kg/m2 General: Comfortable, no obvious distress Eyes: Sclera anicteric, PERRL Mouth: No oral lesions or thrush. Mucosa moist CV: Regular rhythm, normal rate. No murmurs auscultated Resp: Clear to auscultation bilaterally, equal air entry bilaterally, no rales Abdomen: Soft, diffusely tender, non distended. No hepatosplenomegaly. Hernias reducible. Skin: Has a 1 inch clean ulcer on the medial right ankle, has multiple subcutaneous nodules, no petechiae Extremities: No peripheral edema, no tenderness Musculoskeletal: Appropriate muscle bulk and strength. No spinal tenderness Neuro: Alert and oriented x3. No focal deficits on limited exam. Labs/Imaging Lab Results Component Value Date WBC 5.5 10/30/2020 NUCRBC 0 10/30/2020 RBC 3.65 (L) 10/30/2020 HEMOGLOBIN 10.5 (L) 10/30/2020 HEMATOCRIT 31.7 (L) 10/30/2020 MCV 86.8 10/30/2020 MCH 28.8 10/30/2020 MCHC 33.1 10/30/2020 RDW 13.6 09/29/2020 PLTCOUNT 64 (L) 10/30/2020 NEUTROPCT 79.1 10/30/2020 BANDPCT 2 05/09/2013 LYMPHSPCT 5.8 10/30/2020 MONOSPCT 11.8 10/30/2020 EOSPCT 2.4 10/30/2020 BASOPHILPCT 0.2 10/30/2020 METAMYELOPCT 2 (H) 05/09/2013 MYELOCYTEPCT 2 (A) 05/09/2013 Lab Results Component Value Date GLUCOSE 137 (H) 10/30/2020 BUN 8 10/30/2020 CREATSERUM 0.59 (L) 10/30/2020 BCRATIO 13.6 10/30/2020 NA 137 10/30/2020 POTASSIUM 4.6 10/30/2020 CL 112 (H) 10/30/2020 CO2 21 10/30/2020 ANIONGAP 10.2 09/25/2020 CA 6.9 (L) 10/30/2020 PROTEINTOTAL 6.6 10/18/2020 ALBUMIN 1.8 (L) 10/30/2020 ALKPHOS 134 10/18/2020 AST 17 10/18/2020 ALT 8 10/18/2020 BILITOTAL 1.2 10/18/2020 I have reviewed laboratory studies myself. Impression/Plan 1. Pancreatic cancers, had been undergoing combined therapy with capecitabine with radiotherapy. Capecitabine on hold due to diarrhea. Radiotherapy ongoing. 2. Osteomyelitis right index finger. Currently on Cefepime, Vancomycin and Metronidazole per ID. 3. Severe diarrhea from a combination of short gut, chemoradiation, and antibiotic therapy. Not improved much over the past few days. Continue antidiarrheals and octreotide. Increase dose of diphenoxylate/atropine to 2 tabs TID. Continue Creon. Continue IV fluids. 4. History of VTE Currently on Coumadin. 5. DM type 2. Controlled with glipizide and insulin. 6. Right leg ulcer. Clean. Bandaged. Monitor. 7. Hypomagnesemia. Replace IV today. Sotero Garcia MD otero Garcia MD - 10/29/2020 9:03 AM CST HEMATOLOGY ONCOLOGY INPATIENT FOLLOWUP NOTE 10/29/2020 NAME: Blair Stafford is a 80yr old female HPI Ms. Stafford was seen in room 746 today. She was admitted with diarrhea and dehydration. Has been onradiation for localized pancreas cancer. Capecitabine on hold due to diarrhea. Also had osteomyelitis of the distal right index finger. 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 Post right hemicolectomy and ileostomy on 11/28/06. Received adjuvant XELOX from 05/13/07 till 10/30/07. Recurrence in the retroperitonal area. Resected on 10/9/08. Recent Stage IA1 ([id number]) adenocarcinoma of the RUL of the lung, diagnosed on 08/29/20 and Stage IB (T2N0M0) adenocarcinoma of th uncinate process of the pancreas, diagnosed on 09/05/20. The diarrhea is the same. Stools more formed but goes about 5 times a day. Does not have good control. Has been on scheduled loperamide and diphenoxylate/atropine. Also on scheduled low dose octreotide. Breathing unremarkable. Denies any pain today. No fever. No leg swelling. Has a chronic right leg ulcer. ECOG Performance Status 2 Medications Current Facility-Administered Medications Medication Dose Route Frequency Provider Last Rate Last Admin vancomycin in dextrose 200 mL IV piggyback (premix) 1,000 mg 1,000 mg IV 1 time Real Burgos MD vancomycin therapy reminder 1 each Does not apply Upon permission Real Burgos MD cefepime (MAXIPIME) 2000 mg/20 mL in sterile water IV syringe 2,000 mg IV Every 12 hours Gertrude Thomas MD 2,000 mg at 10/29/20 0006 senna-docusate sodium (SENOKOT-S;PERICOLACE) tablet 1 tablet 1 tablet Oral 2 times a day Enrike Lincoln MD Stopped at 10/28/202112 octreotide acetate (sandoSTATIN) injection solution 100 mcg 100 mcg Subcutaneous Every 8 hours Maicol Maldonado MD 100 mcg at 10/29/20 0406 loperamide (IMODIUM) capsule 4 mg 4 mg Oral Every 8 hours Maicol Maldonado MD 4 mg at 10/29/20 0611 diphenoxylate-atropine (LOMOTIL) 2.5-0.025 mg tablet 1 tablet 1 tablet Oral Every 8 hours Maicol Maldonado MD 1 tablet at 10/29/20 0612 sodium chloride 0.9% prefilled 10 mL syringe (Materials Management Item) 10 mL 10 mL IV 2 timesa day and prn Maicol Maldonado MD 10 mL at 10/27/20 1753 And hEParin 100 units/ mL injection for heplock FLUSH 3 mL IV 2 times a day and prn Maicol Maldonado MD 300 Units at 10/25/20 0519 metroNIDAZOLE (FLAGYL) tablet 500 mg 500 mg Oral 3 times a day Real Burgos MD 500 mg at 10/28/202125 influenza HIGH DOSE virus vaccine quadrivalent IM injection 0.7 mL 0.7 mL Intramuscular Prior to discharge Gertrude Thomas MD influenza immunization reminder 1 each Does not apply Immunization prior to discharge Gertrude Thomas MD acetaminophen (TYLENOL) tablet 500 mg 500 mg Oral Every 4 hours prn Gertrude Thomas MD 500 mg at 10/29/20 0612 gabapentin (NEURONTIN) capsule 600 mg 600 mg Oral 3 times a day Gertrude Thomas MD 600 mg at 10/28/202125 glipiZIDE ER (GLUCOTROL XL) extended release tablet (24 hr) 5 mg 5 mg Oral daily Gertrude Thomas MD 5 mg at 10/28/20 0818 ksyhqa-caosowaw-ikbbalc (CREON 12,000) 1238-60 KU capsule 1 capsule 1 capsule Oral 3 times a day with meals Gertrude Thomas MD 1 capsule at 10/28/20 0818 nicotine (NICODERM) 21mg/24hr patch 1 patch Transdermal daily Gertrude Thomas MD 21 mg at 10/20/20 0825 phytonadione (vitamin K) tablet 200 mcg 200 mcg Oral daily Gertrude Thomas MD 200 mcg at 10/28/20 0818 potassium chloride (KLOR-CON M20) CR tablet 20 mEq 20 mEq Oral 2 times a day Gertrude Thomas MD 20 mEq at 10/28/202125 triamcinolone acetonide (KENALOG,ARISTOCORT) 0.1 % cream Apply externally 2 times a day Gertrude Thomas MD Given at 10/28/202129 senna-docusate sodium (SENOKOT-S;PERICOLACE) tablet 1 tablet 1 tablet Oral 2 times a day prn Gertrude Thomas MD bisacodyl (DULCOLAX) suppository 10 mg 10 mg Rectal 1 time a day prn Gertrude Thomas MD ondansetron (ZOFRAN) injection solution 4 mg 4 mg IV Every 4 hours prn Gertrude Thomas MD 4mg at 10/23/20 1226 prochlorperazine (COMPAZINE) 10 mg/2 mL injection solution 5 mg 5 mg IV Every 6 hours prn Gertrude Thomas MD sodium chloride 0.9% flush (adult) 10 mL 10 mL IV 2 times a day and prn Gertrude Thomas MD 10 mL at 10/28/20 0948 potassium chloride 20mEq in sodium chloride 0.9% 1000 mL IV solution IV Continuous Gertrude Thomas MD 75 mL/hr at 10/28/20 1305 New Bag at 10/28/20 1305 HYDROmorphone (DILAUDID) injection solution (conc: 0.5 mg/0.5mL) 0.5 mg 0.5 mg IV Every 1 hour prn Gertrude Thomas MD 0.5 mg at 10/28/20 1437 HYDROmorphone (DILAUDID) injection solution (conc: 1 mg/mL) 1 mg 1 mg IV Every 1 hour prn Gertrude Thomas MD 1 mg at 10/25/20 1548 traZODone (DESYREL) tablet 50 mg 50 mg Oral Bedtime prn Gertrude Thomas MD multivitamin therapeutic with minerals (THERA-M) tablet 1 tablet 1 tablet Oral Daily Gertrude Thomas MD 1 tablet at 10/28/20 0818 dextrose 50% IV solution 50 mL 25 g IV PRN per parameter Gertrude Thomas MD glucagon for injection 1 mg vial 1 mg 1 mg Intramuscular PRN per parameter Gertrude Thomas MD dextrose chewable tablet 16 g 4 tablet Oral PRN per parameter Gertrude Thomas MD 16 g at 10/24/20 1127 Or carbohydrate 15 g 15 g Oral PRN per parameter Gertrude Thomas MD insulin aspart (NovoLOG) SQ correction scale (Adult) 2-8 Units Subcutaneous 3 times a day Gertrude Thomas MD 2 Units at 10/29/20 0612 .Anticoagulation (WARFARIN) therapy nursing reminder 1 each Does not apply Reminder Gertrude Thomas MD Facility-Administered Medications Ordered in Other Encounters Medication Dose Route Frequency Provider Last Rate Last Admin sodium chloride 0.9% injection solution 10-20 mL 10-20 mL IV PRN per parameter Irina Ordaz APRN-BRINDA heparin 100 units/ mL injection for heplock FLUSH 5 mL IV PRN per parameter Irina Ordaz APRN-BRINDA sodium chloride 0.9% prefilled 10 mL syringe (Materials Management Item) 20 mL 20 mL IV As often as necessary prn Irina Ordaz APRN-SHIP WASHER And heparin 100 units/ mL injection for heplock FLUSH 500 Units IV As often as necessary prn Irina Ordaz APRN-BRINDA sodium chloride (vial) 0.9% flush 20 mL 20 mL IV As often as necessary prn Irina Ordaz APRN-SHIP WASHER heparin 100 units/ mL injection for heplock FLUSH 5 mL IV 1 time Irina Ordaz APRN-BRINDA sodium chloride (vial) 0.9% flush 20 mL 20 mL IV As often as necessary prn Irina Ordaz APRN-BRINDA heparin 100 units/ mL injection for heplock FLUSH 5 mL IV 1 time Irina Ordaz APRN-BRINDA Allergies Allergies Allergen Reactions Penicillin Hives (High) Adhesives Rash Mepilex Border dressing Bactericin [Bacitracin] Unknown/Not Verified Cortisporin [Gspymmxf-Dungliido-[id number]] Rash Hydrocortisone [Cortizone] Unknown/Not Verified Levofloxacin Itching and Rash Lincocin Unknown/Not Verified [facility] Alginate 2"X2" [Alginate - Carboxymethylcellulose - Silver] Unknown/Not Verified Patient unable to give me symptoms Monistat [Tioconazole] Unknown/Not Verified Septra [Sulfamethoxazole W-Trimethoprim] Unknown/Not Verified Silvadene [Silver Sulfadiazine] Other (Specify in Comments) Blister with silvadene cream, anything with silver (aquacel wound products) Silver Picrate Rash Silver products Soap Itching Hospital soap and lotions, uses dove. 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) Finger infection Hypophosphatemia Hypomagnesemia Malignant neoplasm of head of pancreas (HCC) Adenocarcinoma, lung, right (HCC) Hypokalemia Pancreatic cancer (HCC) Malignant neoplasm of upper lobe of right lung (HCC) Lung nodule Pancreatic mass Thymoma Coughing Sepsis (HCC) CE (acute kidney injury) (HCC) Diarrhea, unspecified NSTEMI (non-ST elevated myocardial infarction) (HCC) Acute kidney injury (HCC) Cough Elevated factor VIII level Iron deficiency Anemia Fatigue Encounter for central line care Tobacco abuse Peripheral vascular disease (HCC) 2005: Nonhealing right sweet ulcer in the setting of severe PVD. Underwent RCFA to above knee popliteal artery bypass with PTFE (8 mm); Dr. Haider. Ulceration healed well after surgery. 2011: Nonhealing right heel ulcer with occlusion previous graft and occlusion RSFA. Underwent redoright femoral to above knee popliteal bypass with 6 mm ringed Poupart Goretex graft and debridement of ulcer. As of October,, ulcer has not healed. Ischemic heel ulcer ([facility]) May 2012: Abrasion right heel from her wheelchair which developed into infected ulcer. November and April 2013: Hospitalized here for above. September 2013: Hospitalized in [place] for infected right heel ulcer for 10 day acute hospital stay,then 3 wks swing bed for IV vancomycin. Cultures showed pseudomonas, MRSA, and Grp B beta strep. Only partial healing. Referred to IR for this as well as known PVD with markedly abnormal ABIs. 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 while undergoing colon cancer treatment) flipped and unable to access. Port removed; new port placed. October 2009: Port pocket infection (MRSA); irrigated and then placed on doxycycline and Diflucan. Good closure and healing. November 2009: Developed SVC syndrome with facial swelling. Heparinized and underwent venogram of RUEvenous system to the SVC. Found to have stenosis right subclavian, brachiocephalic, and upper IVC which all responded well to 12 mm HEAD PAPER TESTER. Also noted to have high grade stenosis lower RIJ which responded well to 12 mm HEAD PAPER TESTER. [place] to also have persistent left central venous obstruction. Facial swellingimproved. Deep vein thrombosis of left lower extremity (HCC) January 2007: Developed DVT during periods of inactivity associated with her multiple abdominal surgeries for cancer. Started on warfarin; no PE. Thrombosis of subclavian artery (HCC) Heterozygous factor V Leiden mutation (HCC) Pt and daughter report that she has Factor V Leiden mutation; on warfarin since 2006 at which timeshe had DVT. 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, [facility] Found to have large inflammatory mass at hepatic flexure; pathology showed adenocarcinoma. Underwent righthemicolectomy, omentectomy, and colostomy. Developed wound dehiscence 9 days postop; underwent placement of retention sutures. Discharged after total acute stay of 23 days to TCU, then [facility] [place] April 2007: Started chemotherapy under the direction of Dr. Thomas (XELOX x8 cycles from April 2007 to October 2007). December 2007: Colostomy takedown with reanastomosis complicated by wound dehiscence and MRSA ([facility]). Healed with packing. May 2008: As CEA was elevated and CT showed 2 cm lesion inferior to RL liver, underwent exploratory laparotomy, lysis of adhesions, partial hepatic resection, ventral hernia repair. Pathology showed metastatic adenocarcinoma. Again had wound dehiscence and MRSA with prolonged healing. Followedby ID. Treated with LT Zyvox. She has followed with Dr. Thomas; last CEA April 2013 was 2.1 ROS General: no chills, has fatigue, no fever, no unexpected weight changes Psychological: mood and affect are normal Ophthalmic: no blurry vision, no decreased vision ENT:no mouth sores, no thrush, no nose bleed, no sinus pain, no sore throat Respiratory: no cough, no shortness of breath, no wheezing Cardiovascular: no chest pain, no leg swelling Gastrointestinal: no vomiting, occasional cramping pain, no black stools Heme: no bleeding, no bruising Genito-Urinary: no dysuria, no trouble voiding, no hematuria Lymphatics: no swollen glands Neurological: no weakness, no numbness, no tingling, no headache Dermatological: no rash, no skin changes Physical Exam BP 109/53 Pulse 64 Temp 97.3 F (36.3 C) Resp 16 Ht 1.499 m (4' 11") Wt 52.6 kg (115 lb 15.4oz) SpO2 97% BMI 23.42 kg/m2 General: Comfortable, no obvious distress Eyes: Sclera anicteric, PERRL Mouth: No oral lesions or thrush. Mucosa moist CV: Regular rhythm, normal rate. No murmurs auscultated Resp: Clear to auscultation bilaterally, equal air entry bilaterally, no rales Abdomen: Soft, non tender, non distended. No hepatosplenomegaly Skin: Has a 1 inch clean ulcer on the medial right ankle, has multiple subcutaneous nodules, no petechiae Extremities: No peripheral edema, no tenderness Musculoskeletal: Appropriate muscle bulk and strength. No spinal tenderness Neuro: Alert and oriented x3. No focal deficits on limited exam. Labs/Imaging Lab Results Component Value Date WBC 6.5 10/29/2020 NUCRBC 0 10/29/2020 RBC 4.00 10/29/2020 HEMOGLOBIN 11.5 10/29/2020 HEMATOCRIT 34.5 (L) 10/29/2020 MCV 86.3 10/29/2020 MCH 28.8 10/29/2020 MCHC 33.3 10/29/2020 RDW 13.6 09/29/2020 PLTCOUNT 76 (L) 10/29/2020 NEUTROPCT 78.9 10/29/2020 BANDPCT 2 05/09/2013 LYMPHSPCT 5.1 10/29/2020 MONOSPCT 13.3 10/29/2020 EOSPCT 1.7 10/29/2020 BASOPHILPCT 0.2 10/29/2020 METAMYELOPCT 2 (H) 05/09/2013 MYELOCYTEPCT 2 (A) 05/09/2013 Lab Results Component Value Date GLUCOSE 199 (H) 10/29/2020 BUN 9 10/29/2020 CREATSERUM 0.59 (L) 10/29/2020 BCRATIO 15.3 10/29/2020 NA 133 (L) 10/29/2020 POTASSIUM 4.3 10/29/2020 CL 107 10/29/2020 CO2 21 10/29/2020 ANIONGAP 10.2 09/25/2020 CA 7.0 (L) 10/29/2020 PROTEINTOTAL 6.6 10/18/2020 ALBUMIN 2.0 (L) 10/29/2020 ALKPHOS 134 10/18/2020 AST 17 10/18/2020 ALT 8 10/18/2020 BILITOTAL 1.2 10/18/2020 I have reviewed laboratory studies myself. Impression/Plan 1. Pancreatic cancers, had been undergoing combined therapy with capecitabine with radiotherapy. Capecitabine on hold due to diarrhea. Radiotherapy ongoing. 2. Osteomyelitis right index finger. Currently on Cefepime, Vancomycin and Metronidazole per ID. 3. Severe diarrhea from a combination of short gut, chemoradiation, and antibiotic therapy. Not improved much over the past few days. Continue antidiarrheals and octreotide. Increase dose of octreotide to 200 mcg TID. Continue Creon. Continue IV fluids. 4. History of VTE Currently on Coumadin. 5. DM type 2. Controlled with glipizide and insulin. 6. Right leg ulcer. Clean. Bandaged. Monitor. Sotero Garcia MD ertrude Thomas MD - 10/28/2020 7:01 PM CST Hematology/Oncology Daily Progress Note Blair Stafford is a 80yr old female admitted on 10/18/2020. 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 * Plan: Continue antibiotics per ID. Continue RT. No chemo till her Plt count recovers. Replace mag and phosphorus IV. Estimated Discharge Date: 10/31/20. HPI / History / ROS HPI Mrs. Stafford is an 80-year-old white female patient who has been followed by me over the years for colon cancer. She also has problems with persistent thromboembolic disease. She is on chronic anticoagulation with warfarin. She was diagnosed recently with stage I lung cancer and a stage I cancer of the pancreas. We decided to approach the cancer of the pancreas first with chemoradiation. She started treatment a couple of weeks ago. Her chemotherapy is capecitabine as a radiosensitizer at a very low dose of 500 mg twice a day. I saw the patient on 10/18/2020 for routine followup. She complained of severe pain of the right 2nd finger. Her fingernail fell off and the tip of the finger fell off as well. The wound did not seem to be infected, but she had cellulitis of the right 2nd finger, and this was excruciatingly painful. She did try to take cephalexin that she had at home, but it did not help. In view of that, plus the fact that she had severe diarrhea, plus the fact that she was dehydrated, I did admit her for IV antibiotics and IV hydration. She also has hypokalemia, hypomagnesemia, hypophosphatemia, and these will need to be replaced intravenously since she is not able to tolerate lotsof oral replacement. I decided to treat her finger cellulitis with Rocephin. She received the 1st dose on 10/18/2020. When seen on 10/19/2020, her right 2nd finger had somewhat improved. I did request a hand surgery consultation, but this has not been done yet. She also has a diabetic ulcer on the right lower extremity, which is being taken care of by the wound nurse. Her lab work on 10/19/2020 showed a white count of 6,000, hemoglobin 11.4, platelet count 94,000. Differential count normal. Chemistries: Glucose 203, sodium 133, potassium 3.0, phosphorus 2.2, magnesium 2.0 after replacement. INR 2.0. I gave her more IV potassium and phosphate. She still has quite severe diarrhea despite taking Lomotil. She takes 2 tablets 4 times a day, which is a high dose, but it seems that that is what she needs to control the diarrhea. Once the diarrhea is controlled, I might go back on capecitabine. The patient is anxious to go home and does not want to stay in the hospital any longer than necessary. I told her that we better give her 5 days of IV antibiotics and try to get her finger in a better shape. Otherwise, if we stop the antibiotic therapy too soon, the cellulitis of the right 2nd finger might flare up again. She agreed to stay to complete her IV antibiotics. On 10/20/20 she had an XR of the Rt hand showing: FINDING: Bony irregularity and/or fracture second digit distal phalanx. Some soft tissue injury changes are also present correlate for recent trauma versus infection. On 10/20/20 Mrs Stafford was seen in her hospital room. She continued to improve. Eating better. The Rt 2nd finger was still hurting. She had a mild cough. The RLE ulcer was dressed. She had an JACQUI bandage around the Rt lower leg. She still had severe diarrhea despite the Lomotil. She had 6 BM's today.She did continue with the RT. Her exam was basically unchanged. Her lab work showed a WBC of 5.0 with an ANC of 4.0; Hgb 11.9 g/dL; Plt 104,000. Glucose 157 mg/dL; phosphorus 1.8 mg/dL; mag 1.5 mg/dL. Albumin 2.2 g/dL. Other chemistries were WNL. She still had evidence of protein/caloric malnutrition.The dietitian was consulted. She did receive her RT today. She requested to add Imodium to her Lomotil. I did order it. Awaiting opinion from hand surgery. For now,I continued Rocephin and replaced herelectrolytes IV. 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 He recommended amputation. The Pt declined. She said that she wanted to complete her RT first.ID consult was requested. On 10/21/20 she had a CXR showing: FINDINGS/IMPRESSION: The cardiac silhouette is normal in size. There is calcified atherosclerosis of the thoracic aorta. There is a 1.3 cm nodular opacity within the mid right lung which likely corresponds with the hypermetabolic nodule in the periphery of the right upper lobe on the prior PET/CT from 07/27/2020. No additional pulmonary nodules are identified. No focal airspace consolidation. No pneumothorax or pleural effusion. On 10/21/20 she was seen by Dr Burgos from ID. He did change the antibiotic to a combination of Cefepime/Metronidazole/Vancomycin. He felt that she should have surgery soon. On 10/21/20 I saw Mrs Stafford in her hospital room. She was feeling fairly well. Her diarrhea had improved. But she was not eating much. Her pain was at an acceptable level. Her exam was unchanged. I explained to her that she needed surgery soon. She agreed to have it done. I'll let Dr Casas know. Hope to have her surgery next week and resume her radiosensitizing chemotherapy. RT can continue since it has no effect on the finger.Her electrolytes were replaced IV. Her CXR was reviewed and felt unchanged. She had her Rt distal index finger amputated by Dr Casas on 10/24/20. She tolearted the procedure well. On 10/24/20 Mrs Stafford was seen in her hospital room after the amputation. She had no pain. She was started on Octreotide by Dr Maldonado this week-end. This seemed to have helped some. Her appetite remained good. She did receive her RT. Her exam was unchanged. Her Plt count was 97,000. Otherwise the CBC was unremarkable. Her chemistries were close to Nl. Phosphorus was 2.1 mg/dL; Albumin was 2.1 g/dL. Her INR was 2.4 and was reverted with FFP for the procedure. Continue antibiotics for now and check with ID. Continue daily RT. Resume Capecitabine in a few days. On 10/25/20 Mrs Stafford was seen in her hospital room. She had pain in the amputated finger. Her diarrhea had improved since on Octreotide. Eating well. Tolerating the RT well. Her exam was unchanged except for the amputated finger. Her CBC showed a WBC of 3.8 with an ANC of 2.8; Hgb 11.0 g/dL; Plt 74,000. Glucose 230 mg/dL; sodium 134 mEq/L. Phosphate 1.9 mg/dL; mag 2.0 mg/dL. Other values were Nl. Mag and phosphate were replaced.Antibiotics per ID. Await cultures and pathology. On 10/27/20 Mrs Stafford was seen in her hospital room. She said that on 10/26/20 she was very weak. Shefelt a little better on 10/27/20. She continued to have diarrhea. She continued to eat well. Her exam was unchanged. The amputated finger stump was dressed. The surgeon examined it and was satisfied withthe healing. Her exam was unchanged. Her lab work showed a WBC of 4.6 with an ANC of 3.5; Hgb 11.0 g/dL; Plt 58,000. Glucose 215 mg/dL; chloride 111 mEq/L. Phosphorus 1.3 mg/dL; mag 1.4 mg/dL; albumin 1.9 g/dL. She will need mag and phosphate replacements. In view of the thrombocytopenia, most likely caused by Vancomycin, I was not able to resume the Capecitabine. Continue daily monitoring of her counts and chemistries. On 10/28/20 Mrs Stafford was seen in her hospital room. She complained of extreme fatigue. She was eating well. Her legs remained weak. Her cough has resolved since she quit the nicotine patches. Her diarrhea did improve with the current regimen. She did receive her RT today. On exam, the Rt index finger stump was dressed. Her pain was acceptable. Her lab work showed a WBC of 7.3 with an ANC of 5.8; Hgb 11.5 g/dL; Plt 63,000. Phosphorus was 1.3 mg/dL;mag was 1.3 mg/dL; albumin was 2.0 g/dL. Other values were Nl. I did review Dr Burgos's recommendations for antibiotic therapy. He recommended to continue Cefepime/Vanco/Metronidazole while in the hospital. At discharge,he recommends Ertapenem and Daptomycin. The duration of treatment will depend on the pathology. Dr Burgos will see her out-patient in 1-2 weeks to decide. She may need antibiotics till 12/05/20. She will require weakly lab work. The Pt was not interested in the [facility] bed. She could not go home due to the cost of the antibiotics. The best might be a TCU in [place] and get the antibiotics out- patient at the . Will discuss with the bottle caser Saturday. Since her Plt count has not recovered yet, I am holding the Capecitabine. Will continue daily labs and daily electrolytes replacement. Review of Systems Constitutional: Positive for fatigue (She feel exhausted.). Negative for appetite change, chills, diaphoresis, fever and unexpected weight change. HENT: Positive for hearing loss. Eyes: Negative. Respiratory: Negative. Cardiovascular: Negative. Gastrointestinal: Positive for diarrhea (The diarrhea has improved.). Endocrine: Negative. Genitourinary: Negative. Musculoskeletal: Positive for gait problem. Skin: Positive for wound. Neurological: Positive for extremity weakness and gait problem. Hematological: Negative. Psychiatric/Behavioral: Negative. Physical / Results Current Vital Signs Temp: 97.6 F (36.4 C) BP: 116/85 Weight: 52 kg (114 lb 9.6 oz) SpO2: 96 % Resp: 16 Pulse: 93 Current BMI (>50 = increased risk): 23.5 O2 Device: Room Air Pain Ratin Maximum Temperatures (last 24 hours) Temperature Maximum Max Temp 97.9 F (36.6 C) Intake and Output: 10/27 0700 - 10/28 0659 In: 1166 [Oral:1166] Out: 700 [Urine:700] Physical Exam Constitutional: General: She is not in acute distress. Appearance: She is normal weight. She is not ill-appearing, toxic-appearing or diaphoretic. HENT: Head: Normocephalic. Nose: Nose normal. Mouth/Throat: Mouth: Mucous membranes are moist. Pharynx: Oropharynx is clear. No oropharyngeal exudate. Eyes: General: No scleral icterus. Conjunctiva/sclera: Conjunctivae normal. Pupils: Pupils are equal, round, and reactive to light. Neck: Musculoskeletal: Normal range of motion. Cardiovascular: Rate and Rhythm: Normal rate and regular rhythm. Heart sounds: No murmur. Pulmonary: Effort: Pulmonary effort is normal. Breath sounds: Normal breath sounds. Abdominal: General: Abdomen is flat. Bowel sounds are normal. Palpations: Abdomen is soft. Musculoskeletal: Normal range of motion. General: No swelling. Right lower leg: No edema. Left lower leg: No edema. Skin: General: Skin is warm. Coloration: Skin is not jaundiced or pale. Findings: Lesion present. No bruising, erythema or rash. Neurological: General: No focal deficit present. Mental Status: She is alert. Psychiatric: Mood and Affect: Mood normal. Results for BLAIR STAFFORD ( ) as of 10/28/2020 18:33 Ref. Range 10/28/2020 09:46 WBC Latest Ref Range: 4.0 - 11.0 K/uL 7.3 RBC Latest Ref Range: 3.80 - 5.30 M/uL 3.98 Hemoglobin Latest Ref Range: 11.5 - 15.8 g/dL 11.5 Hematocrit Latest Ref Range: 35.0 - 45.0 % 35.0 MCV Latest Ref Range: 80.0 - 98.0 fL 87.9 MCH Latest Ref Range: 25.5 - 34.0 pg 28.9 MCHC Latest Ref Range: 31.5 - 36.5 g/dL 32.9 RDW-CV Latest Ref Range: 11.5 - 15.5 % 16.9 (H) RDW-SD Latest Ref Range: 35.5 - 50.0 fl 53.5 (H) Platelet Count Latest Ref Range: 140 - 400 K/uL 63 (L) MPV Latest Ref Range: 8.5 - 12.0 fL 12.5 (H) Seg Neut Absolute Latest Ref Range: 1.8 - 8.0 K/uL 5.8 Lymphocytes Absolute Latest Ref Range: 0.8 - 4.1 K/uL 0.4 (L) Monocytes Absolute Latest Ref Range: 0.0 - 1.0 K/uL 0.9 Eosinophils Absolute Latest Ref Range: 0.0 - 0.7 K/uL 0.1 Basophil Absolute Latest Ref Range: 0.0 - 0.2 K/uL 0.0 Immature Granulocyte Absolute Latest Ref Range: 0.00 - 0.06 K/uL 0.04 Neutrophils Percent Latest Units: % 79.3 Neutrophils Abs. (Segs and Bands) Latest Units: /uL 5,800 Lymphocytes Percent Latest Units: % 5.8 Monocytes Percent Latest Units: % 12.5 Immature Granulocyte Percent Latest Units: % 0.5 Eosinophils Percent Latest Units: % 1.8 Basophil Percent Latest Units: % 0.1 Nucleated RBC Latest Units: /100 WBC's 0 Glucose Latest Ref Range: 70 - 100 mg/dL 99 Sodium Latest Ref Range: 135 - 145 meq/L 136 Potassium Latest Ref Range: 3.5 - 5.3 meq/L 4.4 Chloride Latest Ref Range: 99 - 110 meq/L 110 CO2 Latest Ref Range: 20 - 29 meq/L 21 Anion Gap with K Latest Ref Range: 6 - 20 meq/L 9 BUN Latest Ref Range: 6 - 22 mg/dL 8 Creatinine Latest Ref Range: 0.60 - 1.10 mg/dL 0.56 (L) BUN/Creatinine Ratio Latest Ref Range: 10.0 - 25.0 14.3 Calcium Latest Ref Range: 8.5 - 10.5 mg/dL 7.3 (L) Corrected Calcium Latest Ref Range: 8.5 - 10.5 mg/dL 8.9 Phosphorus Latest Ref Range: 2.5 - 4.5 mg/dL 1.3 (L) Magnesium Latest Ref Range: 1.8 - 2.4 mg/dL 1.3 (L) Albumin Latest Ref Range: 3.5 - 5.0 g/dL 2.0 (L) eGFR Latest Ref Range: >=60 mL/min/1.73m2 >90 eGFR Non- Latest Ref Range: >=60 mL/min/1.73m2 >90 Protime Latest Ref Range: 12.0 - 14.5 secs 25.5 (H) INR Latest Ref Range: 2.0 - 3.5 2.3 STANT SURVEYOR Gertrude Thomas MD - 10/27/2020 6:56 PM CST Hematology/Oncology Daily Progress Note Blair Stafford is a 80yr old female admitted on 10/18/2020. 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 * Plan: Await Dr Burgos recommendations for antibiotic therapy. Chemo on hold due to possible osteomyelitis and thrombocytopenia. Continue RT to the pancreas. RT to the lung after the pancreas is treated. HPI / History / ROS HPI Mrs. Stafford is an 80-year-old white female patient who has been followed by me over the years for colon cancer. She also has problems with persistent thromboembolic disease. She is on chronic anticoagulation with warfarin. She was diagnosed recently with stage I lung cancer and a stage I cancer of the pancreas. We decided to approach the cancer of the pancreas first with chemoradiation. She started treatment a couple of weeks ago. Her chemotherapy is capecitabine as a radiosensitizer at a very low dose of 500 mg twice a day. I saw the patient on 10/18/2020 for routine followup. She complained of severe pain of the right 2nd finger. Her fingernail fell off and the tip of the finger fell off as well. The wound did not seem to be infected, but she had cellulitis of the right 2nd finger, and this was excruciatingly painful. She did try to take cephalexin that she had at home, but it did not help. In view of that, plus the fact that she had severe diarrhea, plus the fact that she was dehydrated, I did admit her for IV antibiotics and IV hydration. She also has hypokalemia, hypomagnesemia, hypophosphatemia, and these will need to be replaced intravenously since she is not able to tolerate lotsof oral replacement. I decided to treat her finger cellulitis with Rocephin. She received the 1st dose on 10/18/2020. When seen on 10/19/2020, her right 2nd finger had somewhat improved. I did request a hand surgery consultation, but this has not been done yet. She also has a diabetic ulcer on the right lower extremity, which is being taken care of by the wound nurse. Her lab work on 10/19/2020 showed a white count of 6,000, hemoglobin 11.4, platelet count 94,000. Differential count normal. Chemistries: Glucose 203, sodium 133, potassium 3.0, phosphorus 2.2, magnesium 2.0 after replacement. INR 2.0. I gave her more IV potassium and phosphate. She still has quite severe diarrhea despite taking Lomotil. She takes 2 tablets 4 times a day, which is a high dose, but it seems that that is what she needs to control the diarrhea. Once the diarrhea is controlled, I might go back on capecitabine. The patient is anxious to go home and does not want to stay in the hospital any longer than necessary. I told her that we better give her 5 days of IV antibiotics and try to get her finger in a better shape. Otherwise, if we stop the antibiotic therapy too soon, the cellulitis of the right 2nd finger might flare up again. She agreed to stay to complete her IV antibiotics. On 10/20/20 she had an XR of the Rt hand showing: FINDING: Bony irregularity and/or fracture second digit distal phalanx. Some soft tissue injury changes are also present correlate for recent trauma versus infection. On 10/20/20 Mrs Stafford was seen in her hospital room. She continued to improve. Eating better. The Rt 2nd finger was still hurting. She had a mild cough. The RLE ulcer was dressed. She had an JACQUI bandage around the Rt lower leg. She still had severe diarrhea despite the Lomotil. She had 6 BM's today.She did continue with the RT. Her exam was basically unchanged. Her lab work showed a WBC of 5.0 with an ANC of 4.0; Hgb 11.9 g/dL; Plt 104,000. Glucose 157 mg/dL; phosphorus 1.8 mg/dL; mag 1.5 mg/dL. Albumin 2.2 g/dL. Other chemistries were WNL. She still had evidence of protein/caloric malnutrition.The dietitian was consulted. She did receive her RT today. She requested to add Imodium to her Lomotil. I did order it. Awaiting opinion from hand surgery. For now,I continued Rocephin and replaced herelectrolytes IV. 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 He recommended amputation. The Pt declined. She said that she wanted to complete her RT first.ID consult was requested. On 10/21/20 she had a CXR showing: FINDINGS/IMPRESSION: The cardiac silhouette is normal in size. There is calcified atherosclerosis of the thoracic aorta. There is a 1.3 cm nodular opacity within the mid right lung which likely corresponds with the hypermetabolic nodule in the periphery of the right upper lobe on the prior PET/CT from 07/27/2020. No additional pulmonary nodules are identified. No focal airspace consolidation. No pneumothorax or pleural effusion. On 10/21/20 she was seen by Dr Burgos from ID. He did change the antibiotic to a combination of Cefepime/Metronidazole/Vancomycin. He felt that she should have surgery soon. On 10/21/20 I saw Mrs Stafford in her hospital room. She was feeling fairly well. Her diarrhea had improved. But she was not eating much. Her pain was at an acceptable level. Her exam was unchanged. I explained to her that she needed surgery soon. She agreed to have it done. I'll let Dr Casas know. Hope to have her surgery next week and resume her radiosensitizing chemotherapy. RT can continue since it has no effect on the finger.Her electrolytes were replaced IV. Her CXR was reviewed and felt unchanged. She had her Rt distal index finger amputated by Dr Casas on 10/24/20. She tolearted the procedure well. On 10/24/20 Mrs Stafford was seen in her hospital room after the amputation. She had no pain. She was started on Octreotide by Dr Maldonado this week-end. This seemed to have helped some. Her appetite remained good. She did receive her RT. Her exam was unchanged. Her Plt count was 97,000. Otherwise the CBC was unremarkable. Her chemistries were close to Nl. Phosphorus was 2.1 mg/dL; Albumin was 2.1 g/dL. Her INR was 2.4 and was reverted with FFP for the procedure. Continue antibiotics for now and check with ID. Continue daily RT. Resume Capecitabine in a few days. On 10/25/20 Mrs Stafford was seen in her hospital room. She had pain in the amputated finger. Her diarrhea had improved since on Octreotide. Eating well. Tolerating the RT well. Her exam was unchanged except for the amputated finger. Her CBC showed a WBC of 3.8 with an ANC of 2.8; Hgb 11.0 g/dL; Plt 74,000. Glucose 230 mg/dL; sodium 134 mEq/L. Phosphate 1.9 mg/dL; mag 2.0 mg/dL. Other values were Nl. Mag and phosphate were replaced.Antibiotics per ID. Await cultures and pathology. On 10/27/20 Mrs Stafford was seen in her hospital room. She said that on 10/26/20 she was very weak. Shefelt a little better on 10/27/20. She continued to have diarrhea. She continued to eat well. Her exam was unchanged. The amputated finger stump was dressed. The surgeon examined it and was satisfied withthe healing. Her exam was unchanged. Her lab work showed a WBC of 4.6 with an ANC of 3.5; Hgb 11.0 g/dL; Plt 58,000. Glucose 215 mg/dL; chloride 111 mEq/L. Phosphorus 1.3 mg/dL; mag 1.4 mg/dL; albumin 1.9 g/dL. She will need mag and phosphate replacements. In view of the thrombocytopenia, most likely caused by Vancomycin, I was not able to resume the Capecitabine. Continue daily monitoring of her counts and chemistries. Review of Systems Constitutional: Positive for fatigue. Negative for appetite change, chills, diaphoresis, fever and unexpected weight change. HENT: Positive for hearing loss. Eyes: Negative. Respiratory: Negative. Cardiovascular: Negative. Gastrointestinal: Positive for diarrhea. Negative for abdominal pain. Endocrine: Negative. Genitourinary: Negative. Musculoskeletal: Positive for gait problem. Skin: Positive for wound. Neurological: Positive for extremity weakness and gait problem. Hematological: Negative. Psychiatric/Behavioral: Negative. Physical / Results Current Vital Signs Temp: 97.3 F (36.3 C) BP: 139/61 Weight: 52 kg (114 lb 9.6 oz) SpO2: 100 % Resp: 18 Pulse: 69 Current BMI (>50 = increased risk): 23.5 O2 Device: Room Air Pain Ratin Maximum Temperatures (last 24 hours) Temperature Maximum Max Temp 97.9 F (36.6 C) Intake and Output: / 0700 - 10/28 0659 In: 1166 [Oral:1166] Out: 700 [Urine:700] Physical Exam Constitutional: General: She is not in acute distress. Appearance: She is normal weight. She is not ill-appearing, toxic-appearing or diaphoretic. HENT: Head: Normocephalic. Nose: Nose normal. Mouth/Throat: Mouth: Mucous membranes are moist. Pharynx: Oropharynx is clear. No oropharyngeal exudate. Eyes: General: No scleral icterus. Conjunctiva/sclera: Conjunctivae normal. Pupils: Pupils are equal, round, and reactive to light. Neck: Musculoskeletal: Normal range of motion. No neck rigidity. Cardiovascular: Rate and Rhythm: Normal rate and regular rhythm. Heart sounds: No murmur. Pulmonary: Effort: Pulmonary effort is normal. No respiratory distress. Breath sounds: Normal breath sounds. No stridor. No wheezing, rhonchi or rales. Chest: Chest wall: No tenderness. Abdominal: General: Abdomen is flat. Bowel sounds are normal. There is no distension. Palpations: There is no mass. Tenderness: There is no abdominal tenderness. There is no guarding or rebound. Hernia: No hernia is present. Musculoskeletal: Normal range of motion. General: No swelling or deformity. Skin: General: Skin is warm and dry. Coloration: Skin is not jaundiced or pale. Findings: Lesion present. Neurological: General: No focal deficit present. Mental Status: She is alert. Psychiatric: Mood and Affect: Mood normal. Results for BLAIR STAFFORD ( ) as of 10/28/2020 07:30 Ref. Range 10/27/2020 06:17 WBC Latest Ref Range: 4.0 - 11.0 K/uL 4.6 RBC Latest Ref Range: 3.80 - 5.30 M/uL 3.87 Hemoglobin Latest Ref Range: 11.5 - 15.8 g/dL 11.0 (L) Hematocrit Latest Ref Range: 35.0 - 45.0 % 34.2 (L) MCV Latest Ref Range: 80.0 - 98.0 fL 88.4 MCH Latest Ref Range: 25.5 - 34.0 pg 28.4 MCHC Latest Ref Range: 31.5 - 36.5 g/dL 32.2 RDW-CV Latest Ref Range: 11.5 - 15.5 % 16.7 (H) RDW-SD Latest Ref Range: 35.5 - 50.0 fl 53.1 (H) Platelet Count Latest Ref Range: 140 - 400 K/uL 58 (L) MPV Latest Ref Range: 8.5 - 12.0 fL 12.6 (H) Seg Neut Absolute Latest Ref Range: 1.8 - 8.0 K/uL 3.5 Lymphocytes Absolute Latest Ref Range: 0.8 - 4.1 K/uL 0.3 (L) Monocytes Absolute Latest Ref Range: 0.0 - 1.0 K/uL 0.6 Eosinophils Absolute Latest Ref Range: 0.0 - 0.7 K/uL 0.1 Basophil Absolute Latest Ref Range: 0.0 - 0.2 K/uL 0.0 Immature Granulocyte Absolute Latest Ref Range: 0.00 - 0.06 K/uL 0.03 Neutrophils Percent Latest Units: % 75.6 Neutrophils Abs. (Segs and Bands) Latest Units: /uL 3,500 Lymphocytes Percent Latest Units: % 7.4 Monocytes Percent Latest Units: % 13.7 Immature Granulocyte Percent Latest Units: % 0.7 Eosinophils Percent Latest Units: % 2.4 Basophil Percent Latest Units: % 0.2 Nucleated RBC Latest Units: /100 WBC's 0 Glucose Latest Ref Range: 70 - 100 mg/dL 215 (H) Sodium Latest Ref Range: 135 - 145 meq/L 138 Potassium Latest Ref Range: 3.5 - 5.3 meq/L 4.2 Chloride Latest Ref Range: 99 - 110 meq/L 111 (H) CO2 Latest Ref Range: 20 - 29 meq/L 23 Anion Gap with K Latest Ref Range: 6 - 20 meq/L 8 BUN Latest Ref Range: 6 - 22 mg/dL 9 Creatinine Latest Ref Range: 0.60 - 1.10 mg/dL 0.63 BUN/Creatinine Ratio Latest Ref Range: 10.0 - 25.0 14.3 Calcium Latest Ref Range: 8.5 - 10.5 mg/dL 7.0 (L) Corrected Calcium Latest Ref Range: 8.5 - 10.5 mg/dL 8.7 Phosphorus Latest Ref Range: 2.5 - 4.5 mg/dL 1.3 (L) Magnesium Latest Ref Range: 1.8 - 2.4 mg/dL 1.4 (L) Albumin Latest Ref Range: 3.5 - 5.0 g/dL 1.9 (L) eGFR Latest Ref Range: >=60 mL/min/1.73m2 >90 eGFR Non- Latest Ref Range: >=60 mL/min/1.73m2 >90 Protime Latest Ref Range: 12.0 - 14.5 secs 26.4 (H) INR Latest Ref Range: 2.0 - 3.5 2.5 uEnrike woodward MD - 10/27/2020 5:58 PM CST HAND SURGERY PROGRESS NOTE Assessment/Plan: 80F POD3 s/p amputation of right index finger. Dressing change performed today, incision and surrounding skin in good condition. - WBAT RUE - Continue IV abx - Begin ROM with OT - Daily dressing changes with xeroform, gauze, and conform - IM primary - F/u hand clinic in 7-10 days for suture removal Subjective: Patient reports pain in right index finger, no pain in any other fingers Denies any f/c, n/t Objective: Vitals: 10/27/20 1446 BP: 139/61 Pulse: 69 Resp: 18 Temp: 97.3 F (36.3 C) SpO2: 100% Physical Exam: Gen: NAD, AOx3 RUE: Dressing clean, dry, and intact. Dressing taken down, incision well approximated without erythema or drainage (clinical photos in chart). Some edema noted. TTP about the surgical site, non-TTP proximally or distally. SILT distally. Able to flex at MCP of right index finger. Right index finger warm and well perfused. Labs: Lab Results Component Value Date HEMOGLOBIN 11.0 (L) 10/27/2020 Enrike Lincoln MD Orthopedic Surgery, [id number] signed by Herber Casas MD at 10/28/2020 6:19 PM ASSISTANT SURVEYOR Associated attestation - Herber Casas MD - 10/28/2020 6:19 PM ASSISTANT SURVEYOR I discussed the patient with the resident and personally interviewed and examined the patient. I verified in the medical record all resident documentation/findings, including history, physical exam, and medical decision making, and I agree with the resident's documentation. Note the following additions/corrections: Amputation site looks good, no infection, minimal edema. OR cultures NGTD, awaiting pathology -should f/u in hand clinic 7-10 days -OT to see while in hospital Date of Service: 10/28/20 Real Burgos MD - 10/26/2020 5:21 PM CST Infectious Disease Progress Note Reason for consultation: Question of right index finger osteomyelitis SUBJECTIVE: No fever No acute events No complaints on encounter Medications: Current Facility-Administered Medications: vancomycin therapy reminder, 1 each, Does not apply, Upon permission, Real Burgos MD cefepime (MAXIPIME) 2000 mg/20 mL in sterile water IV syringe, 2,000 mg, IV, Every 12 hours, Gertrude Thomas MD, 2,000 mg at 10/26/20 4375 senna-docusate sodium (SENOKOT-S;PERICOLACE) tablet 1 tablet, 1 tablet, Oral, 2 times a day, Enrike Lincoln MD octreotide acetate (sandoSTATIN) injection solution 100 mcg, 100 mcg, Subcutaneous, Every 8 hours, Maicol Maldonado MD, 100 mcg at 10/26/20 1148 loperamide (IMODIUM) capsule 4 mg, 4 mg, Oral, Every 8 hours, Maicol Maldonado MD, 4 mg at 10/26/20 1340 diphenoxylate-atropine (LOMOTIL) 2.5-0.025 mg tablet 1 tablet, 1 tablet, Oral, Every 8 hours, Maicol Maldonado MD, 1 tablet at 10/26/20 1340 sodium chloride 0.9% prefilled 10 mL syringe (Materials Management Item) 10 mL, 10 mL, IV, 2 times a day and prn, 10 mL at 10/25/20 0519 AND hEParin 100 units/ mL injection for heplock FLUSH, 3 mL, IV, 2 times a day and prn, Maicol Maldonado MD, 300 Units at 10/25/20 05 metroNIDAZOLE (FLAGYL) tablet 500 mg, 500 mg, Oral, 3 times a day, Real Burgos MD, 500 mg at 10/26/20 1523 influenza HIGH DOSE virus vaccine quadrivalent IM injection 0.7 mL, 0.7 mL, Intramuscular, Prior to discharge, Gertrude Thomas MD influenza immunization reminder, 1 each, Does not apply, Immunization prior to discharge, Gertrude Thomas MD acetaminophen (TYLENOL) tablet 500 mg, 500 mg, Oral, Every 4 hours prn, Gertrude Thomas MD gabapentin (NEURONTIN) capsule 600 mg, 600 mg, Oral, 3 times a day, Gertrude Thomas MD, 600 mg at 10/26/20 1523 glipiZIDE ER (GLUCOTROL XL) extended release tablet (24 hr) 5 mg, 5 mg, Oral, daily, Gertrude Thomas MD, 5 mg at 10/26/20 0943 ltlxbg-vtindgmi-jsttesi (CREON 12,000) 12-38-60 KU capsule 1 capsule, 1 capsule, Oral, 3 times a day with meals, Gertrude Thomas MD, 1 capsule at 10/26/20 1644 nicotine (NICODERM) 21mg/24hr patch, 1 patch, Transdermal, daily, Gertrude Thomas MD, 21 mg at 10/20/20 0825 phytonadione (vitamin K) tablet 200 mcg, 200 mcg, Oral, daily, Gertrude Thomas MD, 200 mcg at10/26/20 09 potassium chloride (KLOR-CON M20) CR tablet 20 mEq, 20 mEq, Oral, 2 times a day, Gertrude Thomas MD, 20 mEq at 10/26/20 0943 triamcinolone acetonide (KENALOG,ARISTOCORT) 0.1 % cream, , Apply externally, 2 times a day, Gertrude Thomas MD, 1 g at 10/26/20 0944 senna-docusate sodium (SENOKOT-S;PERICOLACE) tablet 1 tablet, 1 tablet, Oral, 2 times a day prn, Gertrude Thomas MD bisacodyl (DULCOLAX) suppository 10 mg, 10 mg, Rectal, 1 time a day prn, Gertrude Thomas MD ondansetron (ZOFRAN) injection solution 4 mg, 4 mg, IV, Every 4 hours prn, Gertrude Thomas MD, 4 mg at 10/23/20 1226 prochlorperazine (COMPAZINE) 10 mg/2 mL injection solution 5 mg, 5 mg, IV, Every 6 hours prn, Gertrude Thomas MD sodium chloride 0.9% flush (adult) 10 mL, 10 mL, IV, 2 times a day and prn, Gertrude Thomas MD, 10 mL at 10/26/20 09 potassium chloride 20mEq in sodium chloride 0.9% 1000 mL IV solution, , IV, Continuous, Gertrude Thomas MD, Last Rate: 75 mL/hr at 10/26/2028, New Bag at 10/26/20727 HYDROmorphone (DILAUDID) injection solution (conc: 0.5 mg/0.5mL) 0.5 mg, 0.5 mg, IV, Every 1 hour prn, Gertrude Thomas MD, 0.5 mg at 10/24/202017 HYDROmorphone (DILAUDID) injection solution (conc: 1 mg/mL) 1 mg, 1 mg, IV, Every 1 hour prn, Gertrude Thomas MD, 1 mg at 10/25/20 1548 traZODone (DESYREL) tablet 50 mg, 50 mg, Oral, Bedtime prn, Gertrude Thomas MD multivitamin therapeutic with minerals (THERA-M) tablet 1 tablet, 1 tablet, Oral, Daily, Gertrude Thomas MD, 1 tablet at 10/26/20 0943 dextrose 50% IV solution 50 mL, 25 g, IV, PRN per parameter, Gertrude Thomas MD glucagon for injection 1 mg vial 1 mg, 1 mg, Intramuscular, PRN per parameter, Gertrude Thomas MD dextrose chewable tablet 16 g, 4 tablet, Oral, PRN per parameter, 16 g at 10/24/20 1127 OR carbohydrate 15 g, 15 g, Oral, PRN per parameter, Gertrude Thomas MD insulin aspart (NovoLOG) SQ correction scale (Adult), 2-8 Units, Subcutaneous, 3 times a day, Gertrude Thomas MD, 3 Units at 10/26/20 1650 .Anticoagulation (WARFARIN) therapy nursing reminder, 1 each, Does not apply, Reminder, Gertrude Thomas MD Facility-Administered Medications Ordered in Other Encounters: sodium chloride 0.9% injection solution 10-20 mL, 10-20 mL, IV, PRN per parameter, Irina Ordaz APRN-RBINDA heparin 100 units/ mL injection for heplock FLUSH, 5 mL, IV, PRN per parameter, Irina Ordaz APRN-BRINDA sodium chloride 0.9% prefilled 10 mL syringe (Materials Management Item) 20 mL, 20 mL, IV, As often as necessary prn AND heparin 100 units/ mL injection for heplock FLUSH, 500 Units, IV, As often as necessary prn, Irina Ordaz APRN-BRINDA sodium chloride (vial) 0.9% flush 20 mL, 20 mL, IV, As often as necessary prn, Irina Ordaz APRN-BRINDA heparin 100 units/ mL injection for heplock FLUSH, 5 mL, IV, 1 time, Irina Ordaz APRN-CNP sodium chloride (vial) 0.9% flush 20 mL, 20 mL, IV, As often as necessary prn, Irina Ordaz APRN-CNP heparin 100 units/ mL injection for heplock FLUSH, 5 mL, IV, 1 time, Irina Ordaz APRN-CNP Vitals: Vitals: 10/26/20 1520 BP: 100/63 Pulse: 66 Resp: 18 Temp: 98 F (36.7 C) SpO2: 94% Physical Exam: Calm Nontoxic-appearing Head atraumatic Neck supple Heart sounds are regular Lungs are clear Abdomen nontender Left index finger with swelling all the way up to the metacarpal phalangeal joint Difficult to passively flex all interphalangeal joints The nail is missing from the second finger and there is an ulcerative lesion at the tip No other hot red or swollen joints No other rash or sign of infection Alert Oriented x3 Pleasant affect without sign of psychosis or delirium Labs: Lab Results Component Value Date GLUCOSE 213 (H) 10/26/2020 BUN 11 10/26/2020 CREATSERUM 0.67 10/26/2020 BCRATIO 16.4 10/26/2020 NA 133 (L) 10/26/2020 POTASSIUM 4.0 10/26/2020 CL 105 10/26/2020 CO2 24 10/26/2020 ANIONGAP 10.2 09/25/2020 CA 7.0 (L) 10/26/2020 EGFR 84 10/26/2020 EGFRAF >90 10/26/2020 Lab Results Component Value Date WBC 3.8 (L) 10/26/2020 NUCRBC 0 10/26/2020 RBC 3.78 (L) 10/26/2020 HEMOGLOBIN 10.7 (L) 10/26/2020 HEMATOCRIT 33.1 (L) 10/26/2020 MCV 87.6 10/26/2020 MCH 28.3 10/26/2020 MCHC 32.3 10/26/2020 RDW 13.6 09/29/2020 PLTCOUNT 67 (L) 10/26/2020 NEUTROPCT 73.3 10/26/2020 BANDPCT 2 05/09/2013 LYMPHSPCT 7.3 10/26/2020 MONOSPCT 15.9 10/26/2020 EOSPCT 2.9 10/26/2020 BASOPHILPCT 0.3 10/26/2020 METAMYELOPCT 2 (H) 05/09/2013 MYELOCYTEPCT 2 (A) 05/09/2013 Lab Results Component Value Date CRP 57.0 (H) 10/21/2020 Lab Results Component Value Date ESR 40 (H) 10/21/2020 Radiology: 10/20 hand x-ray reviewed 10/21 chest x-ray reviewed ASSESSMENT: 1. Radiographic evidence of osteomyelitis of the index finger of the right hand 2. Right index finger cellulitis 3. Neuropathy of the right hand/finger 4. Pancreatic carcinoma on radiation therapy 5. Right lung adenocarcinoma 6. Thymoma 7. History of colon cancer 8. Peripheral neuropathy 9. Onycholysis 10. Dactylitis The patient is a 80-year-old female currently on Capecitabine and radiation therapy for a pancreaticcancer with to my understanding metastases to the right lung. She has a history of thymoma and colon adenocarcinoma as well. She was hospitalized for a lesion on her right index finger. She has skinulceration or breakdown and radiographic evidence on x-ray concerning for osteomyelitis. She underwent a resection of the right index finger tip down to the middle phalanx. Resection margins were sent to pathology and for culture. So far, cultures and pathology are in process. I will plan to treat as though she has residual osteomyelitis until the path and culture confirm that she had surgical cure. So far, Pseudomonas has not declared on culture. Plan will be to continue Daptomycin and Ertapenem on discharge through the infusion center. I will see her in clinic in 1-2 weeks and follow up on herclinical status as well as pathology/cultures. If resection margins suggest surgical cure and she is looking good by that time, then Abx will be stopped. Otherwise will need 6 weeks. RECOMMENDATIONS: Continue Cefepime/Vancomycin/Metronidazole while hospitalized Discharge on the following: Daptomycin 6mg/kg IV Q24h Ertapenem 1g IV Q24h Continue Abx through to follow up with ID; ID to arrange follow up If surgical resection margins are clear then will stop antibiotics. If not then will complete 6 weeks Abx; 6 weeks will conclude on 12/05 Pt requires weekly CBC w/ diff, Cr, ALT, ESR, and CRP. Pt requires weekly CK while on Daptomycin therapy; pt should hold any statin for the duration of Daptomycin therapy. Thank you for the consultation. The infectious disease service will SIGN OFF. Please do not hesitate to contact me if there are any questions or if new issues arise. Real Burgos MD Infectious Disease [place], [place] STANT SURVEYOR Sotero Garcia MD - 10/26/2020 10:20 AM CST HEMATOLOGY ONCOLOGY INPATIENT FOLLOWUP NOTE 10/26/2020 NAME: Blair Stafford is a 80yr old female HPI Ms. Stafford was seen in room 746 today. She was admitted with diarrhea and dehydration. Has been onradiation for localized pancreas cancer. Capecitabine on hold due to diarrhea. Also had osteomyelitis of the distal right index finger. 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 Post right hemicolectomy and ileostomy on 11/28/06. Received adjuvant XELOX from 05/13/07 till 10/30/07. Recurrence in the retroperitonal area. Resected on 06/03/08. Recent Stage IA1 ([id number]) adenocarcinoma of the RUL of the lung, diagnosed on 08/29/20 and Stage IB (T2N0M0) adenocarcinoma of th uncinate process of the pancreas, diagnosed on 09/05/20. The diarrhea is better. Stools more formed today. Did not have much stooling yesterday. Has been on scheduled loperamide and diphenoxylate/atropine. Also on scheduled low dose octreotide. Breathing unremarkable. Complains of left shoulder pain today. Does not want any painkillers for it. Able to move the arm. No fever. No leg swelling. Has a chronic right leg ulcer. ECOG Performance Status 2 Medications Current Facility-Administered Medications Medication Dose Route Frequency Provider Last Rate Last Admin vancomycin therapy reminder 1 each Does not apply Upon permission Real Burgos MD cefepime (MAXIPIME) 2000 mg/20 mL in sterile water IV syringe 2,000 mg IV Every 12 hours Gertrude Thomas MD 2,000 mg at 10/26/20 0005 senna-docusate sodium (SENOKOT-S;PERICOLACE) tablet 1 tablet 1 tablet Oral 2 times a day Enrike Lincoln MD octreotide acetate (sandoSTATIN) injection solution 100 mcg 100 mcg Subcutaneous Every 8 hours Maicol Maldonado MD 100 mcg at 10/26/20 0435 loperamide (IMODIUM) capsule 4 mg 4 mg Oral Every 8 hours Maicol Maldonado MD 4 mg at 10/26/20 0550 diphenoxylate-atropine (LOMOTIL) 2.5-0.025 mg tablet 1 tablet 1 tablet Oral Every 8 hours Maicol Maldonado MD 1 tablet at 10/26/20 0550 sodium chloride 0.9% prefilled 10 mL syringe (Materials Management Item) 10 mL 10 mL IV 2 timesa day and prn Maicol Maldonado MD 10 mL at 10/25/20 0519 And hEParin 100 units/ mL injection for heplock FLUSH 3 mL IV 2 times a day and prn Maicol Maldonado MD 300 Units at 10/25/20 0519 metroNIDAZOLE (FLAGYL) tablet 500 mg 500 mg Oral 3 times a day Real Burgos MD 500 mg at 10/26/20 0942 influenza HIGH DOSE virus vaccine quadrivalent IM injection 0.7 mL 0.7 mL Intramuscular Prior to discharge Gertrude Thoams MD influenza immunization reminder 1 each Does not apply Immunization prior to discharge Gertrude Thomas MD acetaminophen (TYLENOL) tablet 500 mg 500 mg Oral Every 4 hours prn Gertrude Thomas MD gabapentin (NEURONTIN) capsule 600 mg 600 mg Oral 3 times a day Gertrude Thomas MD 600 mg at 10/26/20 0942 glipiZIDE ER (GLUCOTROL XL) extended release tablet (24 hr) 5 mg 5 mg Oral daily Gertrude Thomas MD 5 mg at 10/26/20 0943 [id number]-kwhblbf (CREON 12,000) 12-38-60 KU capsule 1 capsule 1 capsule Oral 3 times a day with meals Gertrude Thomas MD 1 capsule at 10/26/20 0728 nicotine (NICODERM) 21mg/24hr patch 1 patch Transdermal daily Gertrude Thomas MD 21 mg at 10/20/20 0825 phytonadione (vitamin K) tablet 200 mcg 200 mcg Oral daily Gertrude Thomas MD 200 mcg at 10/26/20 0943 potassium chloride (KLOR-CON M20) CR tablet 20 mEq 20 mEq Oral 2 times a day Gertrude Thomas MD 20 mEq at 10/26/20 0943 triamcinolone acetonide (KENALOG,ARISTOCORT) 0.1 % cream Apply externally 2 times a day Gertrude Thomas MD 1 g at 10/26/20 0944 senna-docusate sodium (SENOKOT-S;PERICOLACE) tablet 1 tablet 1 tablet Oral 2 times a day prn Gertrude Thomas MD bisacodyl (DULCOLAX) suppository 10 mg 10 mg Rectal 1 time a day prn Gertrude Thomas MD ondansetron (ZOFRAN) injection solution 4 mg 4 mg IV Every 4 hours prn Gertrude Thomas MD 4mg at 10/23/20 1226 prochlorperazine (COMPAZINE) 10 mg/2 mL injection solution 5 mg 5 mg IV Every 6 hours prn Gertrude Thomas MD sodium chloride 0.9% flush (adult) 10 mL 10 mL IV 2 times a day and prn Gertrude Thomas MD 10 mL at 10/26/20 0944 potassium chloride 20mEq in sodium chloride 0.9% 1000 mL IV solution IV Continuous Gertrude Thomas MD 75 mL/hr at 10/26/20 0728 New Bag at 10/26/20 0728 HYDROmorphone (DILAUDID) injection solution (conc: 0.5 mg/0.5mL) 0.5 mg 0.5 mg IV Every 1 hour prn Gertrude Thomas MD 0.5 mg at 10/24/20 2018 HYDROmorphone (DILAUDID) injection solution (conc: 1 mg/mL) 1 mg 1 mg IV Every 1 hour prn Gertrude Thomas MD 1 mg at 10/25/20 1548 traZODone (DESYREL) tablet 50 mg 50 mg Oral Bedtime prn Gertrude Thomas MD multivitamin therapeutic with minerals (THERA-M) tablet 1 tablet 1 tablet Oral Daily Gertrude Thomas MD 1 tablet at 10/26/20 0943 dextrose 50% IV solution 50 mL 25 g IV PRN per parameter Gertrude Thomas MD glucagon for injection 1 mg vial 1 mg 1 mg Intramuscular PRN per parameter Gertrude Thomas MD dextrose chewable tablet 16 g 4 tablet Oral PRN per parameter Gertrude Thomas MD 16 g at 10/24/20 1127 Or carbohydrate 15 g 15 g Oral PRN per parameter Gertrude Thomas MD insulin aspart (NovoLOG) SQ correction scale (Adult) 2-8 Units Subcutaneous 3 times a day Gertrude Thomas MD 5 Units at 10/26/20 0549 .Anticoagulation (WARFARIN) therapy nursing reminder 1 each Does not apply Reminder Gertrude Thomas MD Facility-Administered Medications Ordered in Other Encounters Medication Dose Route Frequency Provider Last Rate Last Admin sodium chloride 0.9% injection solution 10-20 mL 10-20 mL IV PRN per parameter Donna Ordazi [place],MAT MAKING MACHINE TENDER-SHIP WASHER heparin 100 units/ mL injection for heplock FLUSH 5 mL IV PRN per parameter Irina Ordaz MAT MAKING MACHINE TENDER-BRINDA sodium chloride 0.9% prefilled 10 mL syringe (Materials Management Item) 20 mL 20 mL IV As often as necessary prn Irina Ordaz APRN-SHIP WASHER And heparin 100 units/ mL injection for heplock FLUSH 500 Units IV As often as necessary prn Irina Ordaz MAT MAKING MACHINE TENDER-SHIP WASHER sodium chloride (vial) 0.9% flush 20 mL 20 mL IV As often as necessary prn Irina Ordaz, MAT MAKING MACHINE TENDER-SHIP WASHER heparin 100 units/ mL injection for heplock FLUSH 5 mL IV 1 time Irina Ordaz MAT MAKING MACHINE TENDER-SHIP WASHER sodium chloride (vial) 0.9% flush 20 mL 20 mL IV As often as necessary prn Irina Ordaz MAT MAKING MACHINE TENDER-SHIP WASHER heparin 100 units/ mL injection for heplock FLUSH 5 mL IV 1 time Irina Ordaz MAT MAKING MACHINE TENDER-SHIP WASHER Allergies Allergies Allergen Reactions Penicillin Hives (High) Adhesives Rash Mepilex Border dressing Bactericin [Bacitracin] Unknown/Not Verified Cortisporin [Uolzotug-Czghhgqcl-Eu] Rash Hydrocortisone [Cortizone] Unknown/Not Verified Levofloxacin Itching and Rash Lincocin Unknown/Not Verified [facility] Ca Alginate 2"X2" [Alginate - Carboxymethylcellulose - Silver] Unknown/Not Verified Patient unable to give me symptoms Monistat [Tioconazole] Unknown/Not Verified Septra [Sulfamethoxazole W-Trimethoprim] Unknown/Not Verified Silvadene [Silver Sulfadiazine] Other (Specify in Comments) Blister with silvadene cream, anything with silver (aquacel wound products) Silver Picrate Rash Silver products Soap Itching Hospital soap and lotions, uses dove. 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) Finger infection Hypophosphatemia Hypomagnesemia Malignant neoplasm of head of pancreas (HCC) Adenocarcinoma, lung, right (HCC) Hypokalemia Pancreatic cancer (HCC) Malignant neoplasm of upper lobe of right lung (HCC) Lung nodule Pancreatic mass Thymoma Coughing Sepsis (HCC) CE (acute kidney injury) (HCC) Diarrhea, unspecified NSTEMI (non-ST elevated myocardial infarction) (HCC) Acute kidney injury (HCC) Cough Elevated factor VIII level Iron deficiency Anemia Fatigue Encounter for central line care Tobacco abuse Peripheral vascular disease (HCC) 2005: Nonhealing right sweet ulcer in the setting of severe PVD. Underwent RCFA to above knee popliteal artery bypass with PTFE (8 mm); Dr. Haider. Ulceration healed well after surgery. 2011: Nonhealing right heel ulcer with occlusion previous graft and occlusion RSFA. Underwent redoright femoral to above knee popliteal bypass with 6 mm ringed Poupart Goretex graft and debridement of ulcer. As of October,, ulcer has not healed. Ischemic heel ulcer (HCC) May 2012: Abrasion right heel from her wheelchair which developed into infected ulcer. November and April 2013: Hospitalized here for above. September 2013: Hospitalized in [place] for infected right heel ulcer for 10 day acute hospital stay,then 3 wks swing bed for IV vancomycin. Cultures showed pseudomonas, MRSA, and Grp B beta strep. Only partial healing. Referred to IR for this as well as known PVD with markedly abnormal ABIs. 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 while undergoing colon cancer treatment) flipped and unable to access. Port removed; new port placed. October 2009: Port pocket infection (MRSA); irrigated and then placed on doxycycline and Diflucan. Good closure and healing. November 2009: Developed SVC syndrome with facial swelling. Heparinized and underwent venogram of RUEvenous system to the SVC. Found to have stenosis right subclavian, brachiocephalic, and upper IVC which all responded well to 12 mm HEAD PAPER TESTER. Also noted to have high grade stenosis lower RIJ which responded well to 12 mm HEAD PAPER TESTER. [place] to also have persistent left central venous obstruction. Facial swellingimproved. Deep vein thrombosis of left lower extremity (HCC) January 2007: Developed DVT during periods of inactivity associated with her multiple abdominal surgeries for cancer. Started on warfarin; no PE. Thrombosis of subclavian artery (HCC) Heterozygous factor V Leiden mutation (HCC) Pt and daughter report that she has Factor V Leiden mutation; on warfarin since 2006 at which timeshe had DVT. 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 Padron, [facility]). Found to have large inflammatory mass at hepatic flexure; pathology showed adenocarcinoma. Underwent righthemicolectomy, omentectomy, and colostomy. Developed wound dehiscence 9 days postop; underwent placement of retention sutures. Discharged after total acute stay of 23 days to TCU, [facility] [place]. April 2007: Started chemotherapy under the direction of Dr. Thomas (XELOX x8 cycles from April 2007 to October 2007). December 2007: Colostomy takedown with reanastomosis complicated by wound dehiscence and MRSA (Dr. Padron,[facility]). Healed with packing. May 2008: As CEA was elevated and CT showed 2 cm lesion inferior to RL liver, underwent exploratory laparotomy, lysis of adhesions, partial hepatic resection, ventral hernia repair. Pathology showed metastatic adenocarcinoma. Again had wound dehiscence and MRSA with prolonged healing. Followedby ID. Treated with LT Zyvox. She has followed with Dr. Thomas; last CEA April 2013 was 2.1 PMH Past Medical History: Diagnosis Date CE (acute kidney injury) (HCC) Allergy Anemia Cataract Clotting disorder (HCC) Deep vein thrombosis of left lower extremity (HCC) 02/18/2012 DM w/o Complication Type II Elevated factor VIII level Essential hypertension, benign Factor 5 Leiden mutation, heterozygous (HCC) history of per pt. Fatigue Finger infection 10/18/2020 Hx antineoplastic chemo Hypophosphatemia 10/18/2020 Iron deficiency Ischemic heel ulcer (HCC) 11/11/2013 IVC thrombosis (HCC) Lung nodule 08/20/2020 Malignant neoplasm of colon, unspecified site 11/28/2006 Malignant neoplasm of upper lobe of right lung (HCC) 09/01/2020 Moderate protein-calorie malnutrition (HCC) 10/20/2020 MRSA (methicillin resistant staph aureus) culture positive 07/2009 abd wound, 12/2015 foot Myocardial infarction (HCC) NSTEMI- pt denies 01/05/2020 Pancreatic mass 08/20/2020 Peripheral vascular disease (HCC) 11/11/2013 PVD (peripheral vascular disease) (HCC) Sepsis (HCC) Staph Infection NEC 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 Thymoma 02/10/2020 Tobacco abuse 11/13/2013 ROS General: no chills, has fatigue, no fever, no unexpected weight changes Psychological: mood and affect are normal Ophthalmic: no blurry vision, no decreased vision ENT:no mouth sores, no thrush, no nose bleed, no sinus pain, no sore throat Respiratory: no cough, no shortness of breath, no wheezing Cardiovascular: no chest pain, no leg swelling Gastrointestinal: no vomiting, occasional cramping pain, no black stools Heme: no bleeding, no bruising Genito-Urinary: no dysuria, no trouble voiding, no hematuria Lymphatics: no swollen glands Neurological: no weakness, no numbness, no tingling, no headache Dermatological: no rash, no skin changes Physical Exam BP 135/105 Pulse 70 Temp 97.4 F (36.3 C) Resp 18 Ht 1.499 m (4' 11") Wt 55 kg (121 lb 4.1 oz) SpO2 97% BMI 24.49 kg/m2 General: Comfortable, no obvious distress Eyes: Sclera anicteric, PERRL Mouth: No oral lesions or thrush. Mucosa moist CV: Regular rhythm, normal rate. No murmurs auscultated Resp: Clear to auscultation bilaterally, equal air entry bilaterally, no rales Abdomen: Soft, non tender, non distended. No hepatosplenomegaly Skin: Has a 1 inch clean ulcer on the medial right ankle, has multiple subcutaneous nodules, no petechiae Extremities: No peripheral edema, no tenderness Musculoskeletal: Appropriate muscle bulk and strength. No spinal tenderness Neuro: Alert and oriented x3. No focal deficits on limited exam. Labs/Imaging Lab Results Component Value Date WBC 3.8 (L) 10/26/2020 NUCRBC 0 10/26/2020 RBC 3.78 (L) 10/26/2020 HEMOGLOBIN 10.7 (L) 10/26/2020 HEMATOCRIT 33.1 (L) 10/26/2020 MCV 87.6 10/26/2020 MCH 28.3 10/26/2020 MCHC 32.3 10/26/2020 RDW 13.6 09/29/2020 PLTCOUNT 67 (L) 10/26/2020 NEUTROPCT 73.3 10/26/2020 BANDPCT 2 05/09/2013 LYMPHSPCT 7.3 10/26/2020 MONOSPCT 15.9 10/26/2020 EOSPCT 2.9 10/26/2020 BASOPHILPCT 0.3 10/26/2020 METAMYELOPCT 2 (H) 05/09/2013 MYELOCYTEPCT 2 (A) 05/09/2013 Lab Results Component Value Date GLUCOSE 263 (H) 10/26/2020 BUN 11 10/26/2020 CREATSERUM 0.67 10/26/2020 BCRATIO 16.4 10/26/2020 NA 133 (L) 10/26/2020 POTASSIUM 4.0 10/26/2020 CL 105 10/26/2020 CO2 24 10/26/2020 ANIONGAP 10.2 09/25/2020 CA 7.0 (L) 10/26/2020 PROTEINTOTAL 6.6 10/18/2020 ALBUMIN 2.0 (L) 10/26/2020 ALKPHOS 134 10/18/2020 AST 17 10/18/2020 ALT 8 10/18/2020 BILITOTAL 1.2 10/18/2020 I have reviewed laboratory studies myself. Impression/Plan 1. Pancreatic cancers, had been undergoing combined therapy with capecitabine with radiotherapy. Capecitabine on hold due to diarrhea. Radiotherapy ongoing. 2. Osteomyelitis right index finger. ID input appreciated. Currently on Cefepime, Vancomycin and Metronidazole. 3. Severe diarrhea from a combination of short gut, chemoradiation, and antibiotic therapy. Improving. Continue antidiarrheals and octreotide. Continue Creon. Continue IV fluids. 4. History of VTE Currently on Coumadin. 5. DM type 2. Controlled with glipizide and insulin. 6. Right leg ulcer. Clean. Bandaged. Monitor. Sotero Garcia MD STANT SURVEYOR Gertrude Thomas MD - 10/25/2020 6:49 PM CST Hematology/Oncology Daily Progress Note Blair Stafford is a 80yr old female admitted on 10/18/2020. 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 * Plan: Await ID recommendations. Replace Mag and phosphate. Continue RT. Resume Capecitabine soon. Repeat test for MRSA. HPI / History / ROS HPI Mrs. Stafford is an 80-year-old white female patient who has been followed by me over the years for colon cancer. She also has problems with persistent thromboembolic disease. She is on chronic anticoagulation with warfarin. She was diagnosed recently with stage I lung cancer and a stage I cancer of the pancreas. We decided to approach the cancer of the pancreas first with chemoradiation. She started treatment a couple of weeks ago. Her chemotherapy is capecitabine as a radiosensitizer at a very low dose of 500 mg twice a day. I saw the patient on 10/18/2020 for routine followup. She complained of severe pain of the right 2nd finger. Her fingernail fell off and the tip of the finger fell off as well. The wound did not seem to be infected, but she had cellulitis of the right 2nd finger, and this was excruciatingly painful. She did try to take cephalexin that she had at home, but it did not help. In view of that, plus the fact that she had severe diarrhea, plus the fact that she was dehydrated, I did admit her for IV antibiotics and IV hydration. She also has hypokalemia, hypomagnesemia, hypophosphatemia, and these will need to be replaced intravenously since she is not able to tolerate lotsof oral replacement. I decided to treat her finger cellulitis with Rocephin. She received the 1st dose on 10/18/2020. When seen on 10/19/2020, her right 2nd finger had somewhat improved. I did request a hand surgery consultation, but this has not been done yet. She also has a diabetic ulcer on the right lower extremity, which is being taken care of by the wound nurse. Her lab work on 10/19/2020 showed a white count of 6,000, hemoglobin 11.4, platelet count 94,000. Differential count normal. Chemistries: Glucose 203, sodium 133, potassium 3.0, phosphorus 2.2, magnesium 2.0 after replacement. INR 2.0. I gave her more IV potassium and phosphate. She still has quite severe diarrhea despite taking Lomotil. She takes 2 tablets 4 times a day, which is a high dose, but it seems that that is what she needs to control the diarrhea. Once the diarrhea is controlled, I might go back on capecitabine. The patient is anxious to go home and does not want to stay in the hospital any longer than necessary. I told her that we better give her 5 days of IV antibiotics and try to get her finger in a better shape. Otherwise, if we stop the antibiotic therapy too soon, the cellulitis of the right 2nd finger might flare up again. She agreed to stay to complete her IV antibiotics. On 10/20/20 she had an XR of the Rt hand showing: FINDING: Bony irregularity and/or fracture second digit distal phalanx. Some soft tissue injury changes are also present correlate for recent trauma versus infection. On 10/20/20 Mrs Stafford was seen in her hospital room. She continued to improve. Eating better. The Rt 2nd finger was still hurting. She had a mild cough. The RLE ulcer was dressed. She had an JACQUI bandage around the Rt lower leg. She still had severe diarrhea despite the Lomotil. She had 6 BM's today.She did continue with the RT. Her exam was basically unchanged. Her lab work showed a WBC of 5.0 with an ANC of 4.0; Hgb 11.9 g/dL; Plt 104,000. Glucose 157 mg/dL; phosphorus 1.8 mg/dL; mag 1.5 mg/dL. Albumin 2.2 g/dL. Other chemistries were WNL. She still had evidence of protein/caloric malnutrition.The dietitian was consulted. She did receive her RT today. She requested to add Imodium to her Lomotil. I did order it. Awaiting opinion from hand surgery. For now,I continued Rocephin and replaced herelectrolytes IV. 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 He recommended amputation. The Pt declined. She said that she wanted to complete her RT first.ID consult was requested. On 10/21/20 she had a CXR showing: FINDINGS/IMPRESSION: The cardiac silhouette is normal in size. There is calcified atherosclerosis of the thoracic aorta. There is a 1.3 cm nodular opacity within the mid right lung which likely corresponds with the hypermetabolic nodule in the periphery of the right upper lobe on the prior PET/CT from 07/27/2020. No additional pulmonary nodules are identified. No focal airspace consolidation. No pneumothorax or pleural effusion. On 10/21/20 she was seen by Dr Burgos from ID. He did change the antibiotic to a combination of Cefepime/Metronidazole/Vancomycin. He felt that she should have surgery soon. On 10/21/20 I saw Mrs Stafford in her hospital room. She was feeling fairly well. Her diarrhea had improved. But she was not eating much. Her pain was at an acceptable level. Her exam was unchanged. I explained to her that she needed surgery soon. She agreed to have it done. I'll let Dr Casas know. Hope to have her surgery next week and resume her radiosensitizing chemotherapy. RT can continue since it has no effect on the finger.Her electrolytes were replaced IV. Her CXR was reviewed and felt unchanged. She had her Rt distal index finger amputated by Dr Casas on 10/24/20. She tolearted the procedure well. On 10/24/20 Mrs Stafford was seen in her hospital room after the amputation. She had no pain. She was started on Octreotide by Dr Maldonado this week-end. This seemed to have helped some. Her appetite remained good. She did receive her RT. Her exam was unchanged. Her Plt count was 97,000. Otherwise the CBC was unremarkable. Her chemistries were close to Nl. Phosphorus was 2.1 mg/dL; Albumin was 2.1 g/dL. Her INR was 2.4 and was reverted with FFP for the procedure. Continue antibiotics for now and check with ID. Continue daily RT. Resume Capecitabine in a few days. On 10/25/20 Mrs Stafford was seen in her hospital room. She had pain in the amputated finger. Her diarrhea had improved since on Octreotide. Eating well. Tolerating the RT well. Her exam was unchanged except for the amputated finger. Her CBC showed a WBC of 3.8 with an ANC of 2.8; Hgb 11.0 g/dL; Plt 74,000. Glucose 230 mg/dL; sodium 134 mEq/L. Phosphate 1.9 mg/dL; mag 2.0 mg/dL. Other values were Nl. Mag and phosphate were replaced.Antibiotics per ID. Await cultures and pathology. Review of Systems Constitutional: Positive for fatigue. Negative for appetite change, chills, diaphoresis, fever and unexpected weight change. HENT: Positive for hearing loss. Eyes: Negative. Respiratory: Negative. Cardiovascular: Negative. Gastrointestinal: Positive for diarrhea (The diarrhea is better since on Octreotide.). Endocrine: Negative. Genitourinary: Negative. Musculoskeletal: Negative for arthralgias. Pain in the Rt 2nd finger. Skin: Positive for wound. Neurological: Positive for extremity weakness. Hematological: Negative. Psychiatric/Behavioral: Negative. Physical / Results Current Vital Signs Temp: 97.7 F (36.5 C) BP: 124/49 Weight: 55 kg (121 lb 4.1 oz) SpO2: 93 % Resp: 16 Pulse: 86 Current BMI (>50 = increased risk): 23.5 O2 Device: Room Air Pain Ratin Maximum Temperatures (last 24 hours) Temperature Maximum Max Temp 97.7 F (36.5 C) Intake and Output: 10/24 0700 - 10/25 0659 In: 790 [Oral:360] Out: 200 [Urine:200] Physical Exam Constitutional: General: She is not in acute distress. Appearance: She is normal weight. She is not toxic-appearing or diaphoretic. HENT: Head: Normocephalic. Nose: Nose normal. Mouth/Throat: Mouth: Mucous membranes are moist. Pharynx: Oropharynx is clear. No oropharyngeal exudate. Eyes: General: No scleral icterus. Conjunctiva/sclera: Conjunctivae normal. Pupils: Pupils are equal, round, and reactive to light. Neck: Musculoskeletal: Normal range of motion and neck supple. Cardiovascular: Rate and Rhythm: Normal rate and regular rhythm. Heart sounds: No murmur. Pulmonary: Effort: Pulmonary effort is normal. No respiratory distress. Breath sounds: No wheezing or rales. Abdominal: General: Abdomen is flat. Bowel sounds are normal. Palpations: Abdomen is soft. Musculoskeletal: Normal range of motion. General: No swelling. Right lower leg: No edema. Left lower leg: No edema. Skin: General: Skin is warm and dry. Coloration: Skin is not jaundiced. Neurological: General: No focal deficit present. Mental Status: She is alert. Psychiatric: Mood and Affect: Mood normal. Results for BLAIR STAFFORD ( ) as of 10/25/2020 17:47 Ref. Range 10/25/2020 07:07 WBC Latest Ref Range: 4.0 - 11.0 K/uL 3.8 (L) RBC Latest Ref Range: 3.80 - 5.30 M/uL 3.81 Hemoglobin Latest Ref Range: 11.5 - 15.8 g/dL 11.0 (L) Hematocrit Latest Ref Range: 35.0 - 45.0 % 34.2 (L) MCV Latest Ref Range: 80.0 - 98.0 fL 89.8 MCH Latest Ref Range: 25.5 - 34.0 pg 28.9 MCHC Latest Ref Range: 31.5 - 36.5 g/dL 32.2 RDW-CV Latest Ref Range: 11.5 - 15.5 % 16.5 (H) RDW-SD Latest Ref Range: 35.5 - 50.0 fl 53.1 (H) Platelet Count Latest Ref Range: 140 - 400 K/uL 74 (L) MPV Latest Ref Range: 8.5 - 12.0 fL 12.5 (H) Seg Neut Absolute Latest Ref Range: 1.8 - 8.0 K/uL 2.8 Lymphocytes Absolute Latest Ref Range: 0.8 - 4.1 K/uL 0.4 (L) Monocytes Absolute Latest Ref Range: 0.0 - 1.0 K/uL 0.4 Eosinophils Absolute Latest Ref Range: 0.0 - 0.7 K/uL 0.1 Basophil Absolute Latest Ref Range: 0.0 - 0.2 K/uL 0.0 Immature Granulocyte Absolute Latest Ref Range: 0.00 - 0.06 K/uL 0.03 Neutrophils Percent Latest Units: % 75.5 Neutrophils Abs. (Segs and Bands) Latest Units: /uL 2,800 Lymphocytes Percent Latest Units: % 10.4 Monocytes Percent Latest Units: % 10.9 Immature Granulocyte Percent Latest Units: % 0.8 Eosinophils Percent Latest Units: % 2.4 Basophil Percent Latest Units: % 0.0 Nucleated RBC Latest Units: /100 WBC's 0 Glucose Latest Ref Range: 70 - 100 mg/dL 230 (H) Sodium Latest Ref Range: 135 - 145 meq/L 134 (L) Potassium Latest Ref Range: 3.5 - 5.3 meq/L 3.7 Chloride Latest Ref Range: 99 - 110 meq/L 105 CO2 Latest Ref Range: 20 - 29 meq/L 24 Anion Gap with K Latest Ref Range: 6 - 20 meq/L 9 BUN Latest Ref Range: 6 - 22 mg/dL 11 Creatinine Latest Ref Range: 0.60 - 1.10 mg/dL 0.65 BUN/Creatinine Ratio Latest Ref Range: 10.0 - 25.0 16.9 Calcium Latest Ref Range: 8.5 - 10.5 mg/dL 7.3 (L) Corrected Calcium Latest Ref Range: 8.5 - 10.5 mg/dL 8.9 Phosphorus Latest Ref Range: 2.5 - 4.5 mg/dL 1.9 (L) Magnesium Latest Ref Range: 1.8 - 2.4 mg/dL 1.6 (L) Albumin Latest Ref Range: 3.5 - 5.0 g/dL 2.0 (L) eGFR Latest Ref Range: >=60 mL/min/1.73m2 >90 eGFR Non- Latest Ref Range: >=60 mL/min/1.73m2 87 Real Antoine MD - 10/25/2020 3:39 PM CST Infectious Disease Progress Note Reason for consultation: Question of right index finger osteomyelitis SUBJECTIVE: No fever No acute events Right index finger resected down to middle phalanx; resection margin sent Medications: Current Facility-Administered Medications: [START ON 10/26/2020] cefepime (MAXIPIME) 2000 mg/20 mL in sterile water IV syringe, 2,000 mg, IV, Every 12 hours, Gertrude Thomas MD senna-docusate sodium (SENOKOT-S;PERICOLACE) tablet 1 tablet, 1 tablet, Oral, 2 times a day, Enrike Lincoln MD octreotide acetate (sandoSTATIN) injection solution 100 mcg, 100 mcg, Subcutaneous, Every 8 hours, Maicol Maldonado MD, 100 mcg at 10/25/20 1219 loperamide (IMODIUM) capsule 4 mg, 4 mg, Oral, Every 8 hours, Maicol Maldonado MD, 4 mg at 10/25/20 1510 diphenoxylate-atropine (LOMOTIL) 2.5-0.025 mg tablet 1 tablet, 1 tablet, Oral, Every 8 hours, Maicol Maldonado MD, 1 tablet at 10/25/20 1510 sodium chloride 0.9% prefilled 10 mL syringe (Materials Management Item) 10 mL, 10 mL, IV, 2 times a day and prn, 10 mL at 10/25/20 0519 AND hEParin 100 units/ mL injection for heplock FLUSH, 3 mL, IV, 2 times a day and prn, Maicol Maldonado MD, 300 Units at 10/25/20 0519 metroNIDAZOLE (FLAGYL) tablet 500 mg, 500 mg, Oral, 3 times a day, Real Burgos MD, 500 mg at 10/25/20 1510 vancomycin in dextrose 200 mL IV piggyback (premix) 1,000 mg, 1,000 mg, IV, Every 12 hours, Real Burgos MD, 1,000 mg at 10/25/20 0518 influenza HIGH DOSE virus vaccine quadrivalent IM injection 0.7 mL, 0.7 mL, Intramuscular, Prior to discharge, Gertrude Thomas MD influenza immunization reminder, 1 each, Does not apply, Immunization prior to discharge, Gertrude Thomas MD acetaminophen (TYLENOL) tablet 500 mg, 500 mg, Oral, Every 4 hours prn, Gertrude Thomas MD gabapentin (NEURONTIN) capsule 600 mg, 600 mg, Oral, 3 times a day, Gertrude Thomas MD, 600 mg at 10/25/20 1510 glipiZIDE ER (GLUCOTROL XL) extended release tablet (24 hr) 5 mg, 5 mg, Oral, daily, Gertrude Thomas MD, 5 mg at 10/25/20 09 mhwysg-ovhkcemd-wvsvjac (CREON 12,000) 12-38-60 KU capsule 1 capsule, 1 capsule, Oral, 3 times a day with meals, Gertrude Thomas MD, 1 capsule at 10/25/20 09 nicotine (NICODERM) 21mg/24hr patch, 1 patch, Transdermal, daily, Gertrude Thomas MD, 21 mg at 10/20/20 0825 phytonadione (vitamin K) tablet 200 mcg, 200 mcg, Oral, daily, Gertrude Thomas MD, 200 mcg at10/25/20 0952 potassium chloride (KLOR-CON M20) CR tablet 20 mEq, 20 mEq, Oral, 2 times a day, Gertrude Thomas MD, 20 mEq at 10/25/20 09 triamcinolone acetonide (KENALOG,ARISTOCORT) 0.1 % cream, , Apply externally, 2 times a day, Gertrude Thomas MD, 1 g at 10/25/20 0958 senna-docusate sodium (SENOKOT-S;PERICOLACE) tablet 1 tablet, 1 tablet, Oral, 2 times a day prn, Gertrude Thomas MD bisacodyl (DULCOLAX) suppository 10 mg, 10 mg, Rectal, 1 time a day prn, Gertrude Thomas MD ondansetron (ZOFRAN) injection solution 4 mg, 4 mg, IV, Every 4 hours prn, Gertrude Thomas MD, 4 mg at 10/23/20 1226 prochlorperazine (COMPAZINE) 10 mg/2 mL injection solution 5 mg, 5 mg, IV, Every 6 hours prn, Gertrude Thomas MD sodium chloride 0.9% flush (adult) 10 mL, 10 mL, IV, 2 times a day and prn, Gertrude Thomas MD, 10 mL at 10/24/202019 potassium chloride 20mEq in sodium chloride 0.9% 1000 mL IV solution, , IV, Continuous, Gertrude Thomas MD, Last Rate: 75 mL/hr at 10/25/20 1227, New Bag at 10/25/20 1227 HYDROmorphone (DILAUDID) injection solution (conc: 0.5 mg/0.5mL) 0.5 mg, 0.5 mg, IV, Every 1 hour prn, Gertrude Thomas MD, 0.5 mg at 10/24/20 2018 HYDROmorphone (DILAUDID) injection solution (conc: 1 mg/mL) 1 mg, 1 mg, IV, Every 1 hour prn, Gertrude Thomas MD, 1 mg at 10/25/20 1015 traZODone (DESYREL) tablet 50 mg, 50 mg, Oral, Bedtime prn, Gertrude Thomas MD multivitamin therapeutic with minerals (THERA-M) tablet 1 tablet, 1 tablet, Oral, Daily, Gertrude Thomas MD, 1 tablet at 10/25/20 0952 dextrose 50% IV solution 50 mL, 25 g, IV, PRN per parameter, Gertrude Thomas MD glucagon for injection 1 mg vial 1 mg, 1 mg, Intramuscular, PRN per parameter, Gertrude Thomas MD dextrose chewable tablet 16 g, 4 tablet, Oral, PRN per parameter, 16 g at 10/24/20 1127 OR carbohydrate 15 g, 15 g, Oral, PRN per parameter, Gertrude Thomas MD insulin aspart (NovoLOG) SQ correction scale (Adult), 2-8 Units, Subcutaneous, 3 times a day, Gertrude Thomas MD, 3 Units at 10/25/20 0537 .Anticoagulation (WARFARIN) therapy nursing reminder, 1 each, Does not apply, Reminder, Gertrude Thomas MD Facility-Administered Medications Ordered in Other Encounters: sodium chloride 0.9% injection solution 10-20 mL, 10-20 mL, IV, PRN per parameter, Irina Ordaz MAT MAKING MACHINE TENDER-BRINDA heparin 100 units/ mL injection for heplock FLUSH, 5 mL, IV, PRN per parameter, Irina Ordaz [employer] MAKING MACHINE TENDER-BRINDA sodium chloride 0.9% prefilled 10 mL syringe (Materials Management Item) 20 mL, 20 mL, IV, As often as necessary prn AND heparin 100 units/ mL injection for heplock FLUSH, 500 Units, IV, As often as necessary prn, Irina Ordaz MAT MAKING MACHINE TENDER-SHIP WASHER sodium chloride (vial) 0.9% flush 20 mL, 20 mL, IV, As often as necessary prn, Donna Ordazi [place],MAT MAKING MACHINE TENDER-SHIP WASHER heparin 100 units/ mL injection for heplock FLUSH, 5 mL, IV, 1 time, Irina Ordaz MAT MAKING MACHINE TENDER-SHIP WASHER sodium chloride (vial) 0.9% flush 20 mL, 20 mL, IV, As often as necessary prn, Donna Ordazi [place],MAT MAKING MACHINE TENDER-SHIP WASHER heparin 100 units/ mL injection for heplock FLUSH, 5 mL, IV, 1 time, Irina Ordaz MAT MAKING MACHINE TENDER-SHIP WASHER Vitals: Vitals: 10/25/20 0700 BP: 94/48 Pulse: 70 Resp: 16 Temp: 97.3 F (36.3 C) SpO2: 92% Physical Exam: Calm Nontoxic-appearing Head atraumatic Neck supple Heart sounds are regular Lungs are clear Abdomen nontender Left index finger with swelling all the way up to the metacarpal phalangeal joint Difficult to passively flex all interphalangeal joints The nail is missing from the second finger and there is an ulcerative lesion at the tip No other hot red or swollen joints No other rash or sign of infection Alert Oriented x3 Pleasant affect without sign of psychosis or delirium Labs: Lab Results Component Value Date GLUCOSE 130 (H) 10/25/2020 BUN 11 10/25/2020 CREATSERUM 0.65 10/25/2020 BCRATIO 16.9 10/25/2020 NA 134 (L) 10/25/2020 POTASSIUM 3.7 10/25/2020 CL 105 10/25/2020 CO2 24 10/25/2020 ANIONGAP 10.2 09/25/2020 CA 7.3 (L) 10/25/2020 EGFR 87 10/25/2020 EGFRAF >90 10/25/2020 Lab Results Component Value Date WBC 3.8 (L) 10/25/2020 NUCRBC 0 10/25/2020 RBC 3.81 10/25/2020 HEMOGLOBIN 11.0 (L) 10/25/2020 HEMATOCRIT 34.2 (L) 10/25/2020 MCV 89.8 10/25/2020 MCH 28.9 10/25/2020 MCHC 32.2 10/25/2020 RDW 13.6 09/29/2020 PLTCOUNT 74 (L) 10/25/2020 NEUTROPCT 75.5 10/25/2020 BANDPCT 2 05/09/2013 LYMPHSPCT 10.4 10/25/2020 MONOSPCT 10.9 10/25/2020 EOSPCT 2.4 10/25/2020 BASOPHILPCT 0.0 10/25/2020 METAMYELOPCT 2 (H) 05/09/2013 MYELOCYTEPCT 2 (A) 05/09/2013 Lab Results Component Value Date CRP 57.0 (H) 10/21/2020 Lab Results Component Value Date ESR 40 (H) 10/21/2020 Radiology: 10/20 hand x-ray reviewed 10/21 chest x-ray reviewed ASSESSMENT: 1. Radiographic evidence of osteomyelitis of the index finger of the right hand 2. Right index finger cellulitis 3. Neuropathy of the right hand/finger 4. Pancreatic carcinoma on radiation therapy 5. Right lung adenocarcinoma 6. Thymoma 7. History of colon cancer 8. Peripheral neuropathy 9. Onycholysis 10. Dactylitis The patient is a 80-year-old female currently on Capecitabine and radiation therapy for a pancreaticcancer with to my understanding metastases to the right lung. She has a history of thymoma and colon adenocarcinoma as well. She was hospitalized for a lesion on her right index finger. She has skinulceration or breakdown and radiographic evidence on x-ray concerning for osteomyelitis. She underwent a resection of the right index finger tip down to the middle phalanx. Resection margins were sent to pathology and for culture. So far, cultures and pathology are in process. I will plan to treat as though she has residual osteomyelitis until the path and culture confirm that she had surgical cure. If she doesn't culture Pseudomonas, then I will plan on Daptomycin / Ertapenem as an outpatient with close ID follow up. I will continue to monitor cultures and make arrangements for outpatient antibiotics when she is ready to go. RECOMMENDATIONS: Continue Cefepime 2 g IV every 8 hour Continue Vancomycin; goal trough 1520 Continue Metronidazole 500 mg every 8 hour Recommend surgical management; patient will consider this. Thank you for the consultation. Infectious disease will continue to follow. Please call with questions. Real Burgos MD Infectious Disease [place], [place] [employer] SUR[employer]YOR Gertrude Thomas MD - 10/24/2020 8:26 PM CST Hematology/Oncology Daily Progress Note Blair Staffrod is a 80yr old female admitted on 10/18/2020. 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 * Plan: Continue antibiotics for now. Hold the capecitabine another few days. HPI / History / ROS HPI Mrs. Stafford is an 80-year-old white female patient who has been followed by me over the years for colon cancer. She also has problems with persistent thromboembolic disease. She is on chronic anticoagulation with warfarin. She was diagnosed recently with stage I lung cancer and a stage I cancer of the pancreas. We decided to approach the cancer of the pancreas first with chemoradiation. She started treatment a couple of weeks ago. Her chemotherapy is capecitabine as a radiosensitizer at a very low dose of 500 mg twice a day. I saw the patient on 10/18/2020 for routine followup. She complained of severe pain of the right 2nd finger. Her fingernail fell off and the tip of the finger fell off as well. The wound did not seem to be infected, but she had cellulitis of the right 2nd finger, and this was excruciatingly painful. She did try to take cephalexin that she had at home, but it did not help. In view of that, plus the fact that she had severe diarrhea, plus the fact that she was dehydrated, I did admit her for IV antibiotics and IV hydration. She also has hypokalemia, hypomagnesemia, hypophosphatemia, and these will need to be replaced intravenously since she is not able to tolerate lotsof oral replacement. I decided to treat her finger cellulitis with Rocephin. She received the 1st dose on 10/18/2020. When seen on 10/19/2020, her right 2nd finger had somewhat improved. I did request a hand surgery consultation, but this has not been done yet. She also has a diabetic ulcer on the right lower extremity, which is being taken care of by the wound nurse. Her lab work on 10/19/2020 showed a white count of 6,000, hemoglobin 11.4, platelet count 94,000. Differential count normal. Chemistries: Glucose 203, sodium 133, potassium 3.0, phosphorus 2.2, magnesium 2.0 after replacement. INR 2.0. I gave her more IV potassium and phosphate. She still has quite severe diarrhea despite taking Lomotil. She takes 2 tablets 4 times a day, which is a high dose, but it seems that that is what she needs to control the diarrhea. Once the diarrhea is controlled, I might go back on capecitabine. The patient is anxious to go home and does not want to stay in the hospital any longer than necessary. I told her that we better give her 5 days of IV antibiotics and try to get her finger in a better shape. Otherwise, if we stop the antibiotic therapy too soon, the cellulitis of the right 2nd finger might flare up again. She agreed to stay to complete her IV antibiotics. On 10/20/20 she had an XR of the Rt hand showing: FINDING: Bony irregularity and/or fracture second digit distal phalanx. Some soft tissue injury changes are also present correlate for recent trauma versus infection. On 10/20/20 Mrs Stafford was seen in her hospital room. She continued to improve. Eating better. The Rt 2nd finger was still hurting. She had a mild cough. The RLE ulcer was dressed. She had an JACQUI bandage around the Rt lower leg. She still had severe diarrhea despite the Lomotil. She had 6 BM's today.She did continue with the RT. Her exam was basically unchanged. Her lab work showed a WBC of 5.0 with an ANC of 4.0; Hgb 11.9 g/dL; Plt 104,000. Glucose 157 mg/dL; phosphorus 1.8 mg/dL; mag 1.5 mg/dL. Albumin 2.2 g/dL. Other chemistries were WNL. She still had evidence of protein/caloric malnutrition.The dietitian was consulted. She did receive her RT today. She requested to add Imodium to her Lomotil. I did order it. Awaiting opinion from hand surgery. For now,I continued Rocephin and replaced herelectrolytes IV. 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 He recommended amputation. The Pt declined. She said that she wanted to complete her RT first.ID consult was requested. On 10/21/20 she had a CXR showing: FINDINGS/IMPRESSION: The cardiac silhouette is normal in size. There is calcified atherosclerosis of the thoracic aorta. There is a 1.3 cm nodular opacity within the mid right lung which likely corresponds with the hypermetabolic nodule in the periphery of the right upper lobe on the prior PET/CT from 07/27/2020. No additional pulmonary nodules are identified. No focal airspace consolidation. No pneumothorax or pleural effusion. On 10/21/20 she was seen by Dr Burgos from ID. He did change the antibiotic to a combination of Cefepime/Metronidazole/Vancomycin. He felt that she should have surgery soon. On 10/21/20 I saw Mrs Stafford in her hospital room. She was feeling fairly well. Her diarrhea had improved. But she was not eating much. Her pain was at an acceptable level. Her exam was unchanged. I explained to her that she needed surgery soon. She agreed to have it done. I'll let Dr Casas know. Hope to have her surgery next week and resume her radiosensitizing chemotherapy. RT can continue since it has no effect on the finger.Her electrolytes were replaced IV. Her CXR was reviewed and felt unchanged. She had her Rt distal index finger amputated by Dr Casas on 10/24/20. She tolearted the procedure well. On 10/24/20 Mrs Stafford was seen in her hospital room after the amputation. She had no pain. She was started on Octreotide by Dr Maldonado this week-end. This seemed to have helped some. Her appetite remained good. She did receive her RT. Her exam was unchanged. Her Plt count was 97,000. Otherwise the CBC was unremarkable. Her chemistries were close to Nl. Phosphorus was 2.1 mg/dL; Albumin was 2.1 g/dL. Her INR was 2.4 and was reverted with FFP for the procedure. Continue antibiotics for now and check with ID. Continue daily RT. Resume Capecitabine in a few days. Review of Systems Constitutional: Positive for fatigue. Negative for appetite change, chills, diaphoresis, fever and unexpected weight change. HENT: Positive for hearing loss. Eyes: Negative. Respiratory: Negative. Cardiovascular: Negative. Gastrointestinal: Negative. Endocrine: Negative. Genitourinary: Negative. Skin: Positive for wound. Negative for itching and rash. Neurological: Positive for extremity weakness. Hematological: Negative. Psychiatric/Behavioral: Negative. Physical / Results Current Vital Signs Temp: 97.5 F (36.4 C) BP: 125/62 Weight: 52.2 kg (115 lb 1.3 oz) SpO2: 97 % Resp: 18 Pulse: 91 Current BMI (>50 = increased risk): 23.5 O2 Device: Room Air Pain Ratin Maximum Temperatures (last 24 hours) Temperature Maximum Max Temp 97.8 F (36.6 C) Intake and Output: No intake/output data recorded. Physical Exam Constitutional: General: She is not in acute distress. Appearance: Normal appearance. She is normal weight. She is not ill- appearing, toxic-appearing ordiaphoretic. HENT: Head: Normocephalic. Nose: Nose normal. Mouth/Throat: Mouth: Mucous membranes are moist. Pharynx: Oropharynx is clear. No oropharyngeal exudate. Eyes: General: No scleral icterus. Conjunctiva/sclera: Conjunctivae normal. Pupils: Pupils are equal, round, and reactive to light. Neck: Musculoskeletal: Normal range of motion and neck supple. Cardiovascular: Rate and Rhythm: Normal rate and regular rhythm. Heart sounds: No murmur. Pulmonary: Effort: Pulmonary effort is normal. No respiratory distress. Breath sounds: Normal breath sounds. No stridor. Abdominal: General: Abdomen is flat. Bowel sounds are normal. Palpations: Abdomen is soft. Musculoskeletal: Normal range of motion. Skin: General: Skin is warm. Findings: Lesion present. Neurological: General: No focal deficit present. Mental Status: She is alert. Psychiatric: Mood and Affect: Mood normal. Results for BLAIR STAFFORD ( ) as of 10/24/2020 20:29 Ref. Range 10/24/2020 09:52 WBC Latest Ref Range: 4.0 - 11.0 K/uL 4.9 RBC Latest Ref Range: 3.80 - 5.30 M/uL 4.45 Hemoglobin Latest Ref Range: 11.5 - 15.8 g/dL 12.5 Hematocrit Latest Ref Range: 35.0 - 45.0 % 38.8 MCV Latest Ref Range: 80.0 - 98.0 fL 87.2 MCH Latest Ref Range: 25.5 - 34.0 pg 28.1 MCHC Latest Ref Range: 31.5 - 36.5 g/dL 32.2 RDW-CV Latest Ref Range: 11.5 - 15.5 % 16.3 (H) RDW-SD Latest Ref Range: 35.5 - 50.0 fl 51.5 (H) Platelet Count Latest Ref Range: 140 - 400 K/uL 97 (L) MPV Latest Ref Range: 8.5 - 12.0 fL 12.2 (H) Seg Neut Absolute Latest Ref Range: 1.8 - 8.0 K/uL 3.7 Lymphocytes Absolute Latest Ref Range: 0.8 - 4.1 K/uL 0.2 (L) Monocytes Absolute Latest Ref Range: 0.0 - 1.0 K/uL 0.8 Eosinophils Absolute Latest Ref Range: 0.0 - 0.7 K/uL 0.1 Basophil Absolute Latest Ref Range: 0.0 - 0.2 K/uL 0.0 Immature Granulocyte Absolute Latest Ref Range: 0.00 - 0.06 K/uL 0.02 Neutrophils Percent Latest Units: % 75.9 Neutrophils Abs. (Segs and Bands) Latest Units: /uL 3,700 Lymphocytes Percent Latest Units: % 4.7 Monocytes Percent Latest Units: % 15.7 Immature Granulocyte Percent Latest Units: % 0.4 Eosinophils Percent Latest Units: % 2.9 Basophil Percent Latest Units: % 0.4 Nucleated RBC Latest Units: /100 WBC's 0 Glucose Latest Ref Range: 70 - 100 mg/dL 85 Sodium Latest Ref Range: 135 - 145 meq/L 135 Potassium Latest Ref Range: 3.5 - 5.3 meq/L 3.6 Chloride Latest Ref Range: 99 - 110 meq/L 106 CO2 Latest Ref Range: 20 - 29 meq/L 24 Anion Gap with K Latest Ref Range: 6 - 20 meq/L 9 BUN Latest Ref Range: 6 - 22 mg/dL 9 Creatinine Latest Ref Range: 0.60 - 1.10 mg/dL 0.61 BUN/Creatinine Ratio Latest Ref Range: 10.0 - 25.0 14.8 Calcium Latest Ref Range: 8.5 - 10.5 mg/dL 7.7 (L) Corrected Calcium Latest Ref Range: 8.5 - 10.5 mg/dL 9.2 Phosphorus Latest Ref Range: 2.5 - 4.5 mg/dL 2.1 (L) Magnesium Latest Ref Range: 1.8 - 2.4 mg/dL 1.9 Albumin Latest Ref Range: 3.5 - 5.0 g/dL 2.1 (L) eGFR Latest Ref Range: >=60 mL/min/1.73m2 >90 eGFR Non- Latest Ref Range: >=60 mL/min/1.73m2 >90 Protime Latest Ref Range: 12.0 - 14.5 secs 25.8 (H) INR Latest Ref Range: 2.0 - 3.5 2.4 Herber Saavedra MD - 10/23/2020 2:54 PM CST HAND SURGERY PROGRESS NOTE October 23, 2020 Hospital Day # 6 S: Blair Stafford is a 80yr female consulted for right index finger osteomyelitis. She has now indicated desire to proceed with finger amputation to control the infection. O: Temp Readings from Last 3 Encounters: 10/23/20 97.4 F (36.3 C) 10/18/20 98.3 F (36.8 C) (Tympanic) 10/12/20 97.6 F (36.4 C) (Tympanic) BP Readings from Last 3 Encounters: 10/23/20 149/81 10/18/20 90/44 10/12/20 133/74 Pulse Readings from Last 3 Encounters: 10/23/20 109 10/18/20 99 10/12/20 98 EXAM: Right hand: -ulcerated wound to right index fingertip - no epitrochlear nodes Lab Results Component Value Date WBC 5.5 10/23/2020 WBC 4.5 10/22/2020 WBC 4.2 10/21/2020 NUCRBC 0 10/23/2020 NUCRBC 0 10/22/2020 NUCRBC 0 10/21/2020 RBC 4.46 10/23/2020 RBC 4.19 10/22/2020 RBC 4.09 10/21/2020 HEMOGLOBIN 12.7 10/23/2020 HEMOGLOBIN 11.8 10/22/2020 HEMOGLOBIN 11.6 10/21/2020 HEMATOCRIT 38.7 10/23/2020 HEMATOCRIT 36.3 10/22/2020 HEMATOCRIT 35.4 10/21/2020 MCV 86.8 10/23/2020 MCV 86.6 10/22/2020 MCV 86.6 10/21/2020 MCH 28.5 10/23/2020 MCH 28.2 10/22/2020 MCH 28.4 10/21/2020 MCHC 32.8 10/23/2020 MCHC 32.5 10/22/2020 MCHC 32.8 10/21/2020 RDW 13.6 09/29/2020 RDW 14.8 (A) 07/01/2020 RDW 14 09/30/2019 PLTCOUNT 100 (L) 10/23/2020 PLTCOUNT 99 (L) 10/22/2020 PLTCOUNT 91 (L) 10/21/2020 NEUTROPCT 77.2 10/23/2020 NEUTROPCT 77.5 10/22/2020 NEUTROPCT 77.6 10/21/2020 BANDPCT 2 05/09/2013 BANDPCT 10 (H) 05/08/2013 BANDPCT 1 06/23/2012 LYMPHSPCT 5.3 10/23/2020 LYMPHSPCT 5.8 10/22/2020 LYMPHSPCT 7.4 10/21/2020 MONOSPCT 15.6 10/23/2020 MONOSPCT 14.3 10/22/2020 MONOSPCT 12.6 10/21/2020 EOSPCT 1.3 10/23/2020 EOSPCT 1.8 10/22/2020 EOSPCT 1.7 10/21/2020 BASOPHILPCT 0.2 10/23/2020 BASOPHILPCT 0.2 10/22/2020 BASOPHILPCT 0.2 10/21/2020 METAMYELOPCT 2 (H) 05/09/2013 METAMYELOPCT 2 (H) 06/23/2012 MYELOCYTEPCT 2 (A) 05/09/2013 Lab Results Component Value Date GLUCOSE 175 (H) 10/23/2020 BUN 7 10/23/2020 CREATSERUM 0.62 10/23/2020 BCRATIO 11.3 10/23/2020 NA 136 10/23/2020 POTASSIUM 3.9 10/23/2020 CL 106 10/23/2020 CO2 23 10/23/2020 ANIONGAP 10.2 09/25/2020 CA 7.6 (L) 10/23/2020 EGFR >90 10/23/2020 EGFRAF >90 10/23/2020 A/P: right index finer osteomyelitis with open ulceration and significant distal phalanx involvement. Very doubtful that nonoperative treatment will be of benefit. I have explained the risks, goals and benefits of continued non-operative measures versus performingirrigation and debridement with amputation of the right index finger. She understands the risks to include but are not limited to anesthesia complications, infection, bleeding, injury to surrounding nerve, artery or tendon, postoperative hand/finger/wrist swelling, stiffness or discomfort, incisionalpain, possible incomplete or delayed healing of the wound or relief of pain, possible phantom pain and possible need for subsequent surgery. No guarantees were given or implied. She wishes to proceed. She'll be added on the OR schedule at [facility] for 10/24. Anesthesia Plan: MAC and local Maicol Miramontes MD - 10/23/2020 9:21 AM CST HEMATOLOGY ONCOLOGY INPATIENT PROGRESS NOTE 10/23/2020 NAME: Blair Stafford is a 80yr old female admitted to hospital 10/18/2020 3:26 PM Interval History 80 y/o diabetic female on triple antibiotic therapy for R index finger osteomyelitis with backgroundof cured colon cancer but more recently diagnosed early stage pancreatic and presumptive stage I RULadenoCa lung cancer. Was undergoing PO Xeloda along with pancreatic XRT for treatment of that neoplasm as the priority. Xeloda stopped 2y to diarrhea. XRT course is a little more than 1/2 complete; 14 of 25 fractions done as of 10/21. Experiencing diarrhea from short intestine and effects of XRT/ antibiotics. R finger is dressed in gauze. Has a chronic wet cough as well. No temps. She states that she is agreeable to go ahead with the proposed distal right finger amputation to remove the site of osteomyelitis. Quite miserable; IV sites are blowing, diarrhea no better, overall upset about situation. Discussed scheduling PO Imodium and Lomotil rather than using PRN plus trying introductory doses of SQ octreotide to minimize high output diarrhea. Medications Current Facility-Administered Medications Medication Dose Route Frequency Provider Last Rate Last Admin warfarin (COUMADIN) - NO dose today Oral Warfarin no dose Maicol Maldonado MD octreotide acetate (sandoSTATIN) injection solution 100 mcg 100 mcg Subcutaneous Every 8 hours Maicol Maldonado MD loperamide (IMODIUM) capsule 4 mg 4 mg Oral Every 8 hours Maicol Maldonado MD diphenoxylate-atropine (LOMOTIL) 2.5-0.025 mg tablet 1 tablet 1 tablet Oral Every 8 hours Maicol Maldonado MD cefepime (MAXIPIME) 2000 mg/20 mL in sterile water IV syringe 2,000 mg IV Every 8 hours Real Burgos MD 2,000 mg at 10/23/20 0036 metroNIDAZOLE (FLAGYL) tablet 500 mg 500 mg Oral 3 times a day Real Burgos MD 500 mg at 10/22/20 1453 vancomycin in dextrose 200 mL IV piggyback (premix) 1,000 mg 1,000 mg IV Every 12 hours Real Burgos MD 1,000 mg at 10/23/20 0516 influenza HIGH DOSE virus vaccine quadrivalent IM injection 0.7 mL 0.7 mL Intramuscular Prior to discharge Gertrude Thomas MD influenza immunization reminder 1 each Does not apply Immunization prior to discharge Gertrude Thomas MD acetaminophen (TYLENOL) tablet 500 mg 500 mg Oral Every 4 hours prn Gertrude Thomas MD gabapentin (NEURONTIN) capsule 600 mg 600 mg Oral 3 times a day Gertrude Thomas MD 600 mg at 10/22/20 1453 glipiZIDE ER (GLUCOTROL XL) extended release tablet (24 hr) 5 mg 5 mg Oral daily Gertrude Thomas MD 5 mg at 10/22/20 0944 [id number] (CREON 12,000) 12-38-60 KU capsule 1 capsule 1 capsule Oral 3 times a day with meals Gertrude Thomas MD 1 capsule at 10/22/20 0943 nicotine (NICODERM) 21mg/24hr patch 1 patch Transdermal daily Gertrude Thomas MD 21 mg at 10/20/20 0825 phytonadione (vitamin K) tablet 200 mcg 200 mcg Oral daily Gertrude Thomas MD 200 mcg at 10/22/20 0943 potassium chloride (KLOR-CON M20) CR tablet 20 mEq 20 mEq Oral 2 times a day Gertrude Thomas MD 20 mEq at 10/21/20 2042 triamcinolone acetonide (KENALOG,ARISTOCORT) 0.1 % cream Apply externally 2 times a day Gertrude Thomas MD Given at 10/22/20 0942 senna-docusate sodium (SENOKOT-S;PERICOLACE) tablet 1 tablet 1 tablet Oral 2 times a day prn Gertrude Thomas MD bisacodyl (DULCOLAX) suppository 10 mg 10 mg Rectal 1 time a day prn Gertrude Thomas MD ondansetron (ZOFRAN) injection solution 4 mg 4 mg IV Every 4 hours prn Gertrude Thomas MD 4mg at 10/22/20 1731 prochlorperazine (COMPAZINE) 10 mg/2 mL injection solution 5 mg 5 mg IV Every 6 hours prn Gertrude Thomas MD sodium chloride 0.9% flush (adult) 10 mL 10 mL IV 2 times a day and prn Gertrude Thomas MD 10 mL at 10/22/20 2157 potassium chloride 20mEq in sodium chloride 0.9% 1000 mL IV solution IV Continuous Gertrude Thomas MD Stopped at 10/23/20 0745 HYDROmorphone (DILAUDID) injection solution (conc: 0.5 mg/0.5mL) 0.5 mg 0.5 mg IV Every 1 hour prn Gertrude Thomas MD HYDROmorphone (DILAUDID) injection solution (conc: 1 mg/mL) 1 mg 1 mg IV Every 1 hour prn Gertrude Thomas MD traZODone (DESYREL) tablet 50 mg 50 mg Oral Bedtime prn Gertrude Thomas MD multivitamin therapeutic with minerals (THERA-M) tablet 1 tablet 1 tablet Oral Daily Gertrude Thomas MD 1 tablet at 10/22/20 0944 dextrose 50% IV solution 50 mL 25 g IV PRN per parameter Gertrude Thomas MD glucagon for injection 1 mg vial 1 mg 1 mg Intramuscular PRN per parameter Gertrude Thomas MD dextrose chewable tablet 16 g 4 tablet Oral PRN per parameter Gertrude Thomas MD Or carbohydrate 15 g 15 g Oral PRN per parameter Gertrude Thomas MD insulin aspart (NovoLOG) SQ correction scale (Adult) 2-8 Units Subcutaneous 3 times a day Gertrude Thomas MD Stopped at 10/22/20 1626 .Anticoagulation (WARFARIN) therapy nursing reminder 1 each Does not apply Reminder Gertrude Thomas MD Facility-Administered Medications Ordered in Other Encounters Medication Dose Route Frequency Provider Last Rate Last Admin sodium chloride 0.9% injection solution 10-20 mL 10-20 mL IV PRN per parameter Irina Ordaz APRN-CNP heparin 100 units/ mL injection for heplock FLUSH 5 mL IV PRN per parameter Irina Ordaz APRN-CNP sodium chloride 0.9% prefilled 10 mL syringe (Materials Management Item) 20 mL 20 mL IV As often as necessary prn Irina Ordaz APRN-BRINDA And heparin 100 units/ mL injection for heplock FLUSH 500 Units IV As often as necessary prn Irina Ordaz APRN-BRINDA sodium chloride (vial) 0.9% flush 20 mL 20 mL IV As often as necessary prn Irina Ordaz APRN-BRINDA heparin 100 units/ mL injection for heplock FLUSH 5 mL IV 1 time Irina Ordaz APRN-BRINDA sodium chloride (vial) 0.9% flush 20 mL 20 mL IV As often as necessary prn Irina Ordaz APRN-BRINDA heparin 100 units/ mL injection for heplock FLUSH 5 mL IV 1 time Irina Ordaz APRN-BRINDA Allergies Allergies Allergen Reactions Penicillin Hives (High) Adhesives Rash Mepilex Border dressing Bactericin [Bacitracin] Unknown/Not Verified Cortisporin [Jffiqsbv-Ascrublev-Op] Rash Hydrocortisone [Cortizone] Unknown/Not Verified Levofloxacin Itching and Rash Lincocin Unknown/Not Verified [facility] Ca Alginate 2"X2" [Alginate - Carboxymethylcellulose - Silver] Unknown/Not Verified Patient unable to give me symptoms Monistat [Tioconazole] Unknown/Not Verified Septra [Sulfamethoxazole W-Trimethoprim] Unknown/Not Verified Silvadene [Silver Sulfadiazine] Other (Specify in Comments) Blister with silvadene cream, anything with silver (aquacel wound products) Silver Picrate Rash Silver products Soap Itching Hospital soap and lotions, uses dove. Sodium Acetate Unknown/Not Verified Sulfa Drugs Unknown/Not Verified Sulfamethoxazole W-Trimethoprim Rash Tpn Electrolytes Ii [Lypholyte] Unknown/Not Verified Xeroform [Bismuth Tribromoph-Petrolatum] Unknown/Not Verified Patient not able to give me symptoms ROS: 12 system ROS obtained. Pertinent positives as noted in HPI above. Physical Exam: Current Vital Signs Temp: 98.1 F (36.7 C) BP: 129/75 Pulse: 97 O2 Device: Room Air Resp: 18 Pain Ratin (out of 10) Weight: 52.2 kg (115 lb 1.3 oz) SpO2: 94 % Maximum Temperatures (last 24 hours) Temperature Maximum Max Temp 98.1 F (36.7 C) Wt Readings from Last 3 Encounters: 10/23/20 52.2 kg (115 lb 1.3 oz) 09/13/20 59 kg (130 lb) 09/13/20 59 kg (130 lb) General Appearance: Comfortable, alert, frustrated. Integument: No rashes or subcutaneous nodules, no petechiae Eyes: Pupils equal and reactive, no exudate, Sclera anicteric, conjunctivae and lids normal Mouth: Lips, dentition and gingiva healthy in appearance. No oropharyngeal ulceration or mucositis Respiratory: Effort normal. Lungs clear to auscultation. No rales, rhonchi, or wheezes. No dullnessto percussion. Cardiovascular: Heart of regular rate and rhythm. No murmurs or extra heart sounds. No lower extremity edema or varicosities. Abdomen: Soft, non tender, non distended. Several surgical scars. No hepatomegaly, no splenomegaly, no shifting dullness to percussion; bowel sounds active. Extremities: No inflammatory joint changes, no deformities; R index finger dressed. Labs/Imaging Lab Results Component Value Date WBC 5.5 10/23/2020 NUCRBC 0 10/23/2020 RBC 4.46 10/23/2020 HEMOGLOBIN 12.7 10/23/2020 HEMATOCRIT 38.7 10/23/2020 MCV 86.8 10/23/2020 MCH 28.5 10/23/2020 MCHC 32.8 10/23/2020 RDW 13.6 09/29/2020 PLTCOUNT 100 (L) 10/23/2020 NEUTROPCT 77.2 10/23/2020 BANDPCT 2 05/09/2013 LYMPHSPCT 5.3 10/23/2020 MONOSPCT 15.6 10/23/2020 EOSPCT 1.3 10/23/2020 BASOPHILPCT 0.2 10/23/2020 METAMYELOPCT 2 (H) 05/09/2013 MYELOCYTEPCT 2 (A) 05/09/2013 Lab Results Component Value Date GLUCOSE 145 (H) 10/23/2020 BUN 7 10/23/2020 CREATSERUM 0.62 10/23/2020 BCRATIO 11.3 10/23/2020 NA 136 10/23/2020 POTASSIUM 3.9 10/23/2020 CL 106 10/23/2020 CO2 23 10/23/2020 ANIONGAP 10.2 09/25/2020 CA 7.6 (L) 10/23/2020 PROTEINTOTAL 6.6 10/18/2020 ALBUMIN 2.3 (L) 10/23/2020 ALKPHOS 134 10/18/2020 AST 17 10/18/2020 ALT 8 10/18/2020 BILITOTAL 1.2 10/18/2020 I have reviewed the laboratory studies myself. Impression Complex case 80 y/o diabetic female with cured colorectal cancer but new R lung and pancreatic cancers, the latter undergoing combined modality therapy with oral Xeloda along with radiotherapeutic pancreas. Osteomyelitis right index finger currently on triple antibiotics. Difficulties with diarrhea from a combination of short gut, ongoing chemoradiation, and introductionof antibiotic therapy. No improvement Thromboembolic history, currently on Coumadin. 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) Finger infection Hypophosphatemia Hypomagnesemia Malignant neoplasm of head of pancreas (HCC) Adenocarcinoma, lung, right (HCC) Hypokalemia Pancreatic cancer (HCC) Malignant neoplasm of upper lobe of right lung (HCC) Lung nodule Pancreatic mass Thymoma Coughing Sepsis (HCC) CE (acute kidney injury) (HCC) Diarrhea, unspecified NSTEMI (non-ST elevated myocardial infarction) (HCC) Acute kidney injury (HCC) Cough Elevated factor VIII level Iron deficiency Anemia Fatigue Encounter for central line care Tobacco abuse Peripheral vascular disease (HCC) 2005: Nonhealing right sweet ulcer in the setting of severe PVD. Underwent RCFA to above knee popliteal artery bypass with PTFE (8 mm); Dr. Haider. Ulceration healed well after surgery. 2011: Nonhealing right heel ulcer with occlusion previous graft and occlusion RSFA. Underwent redoright femoral to above knee popliteal bypass with 6 mm ringed Poupart Goretex graft and debridement of ulcer. As of October,, ulcer has not healed. Ischemic heel ulcer (HCC) May 2012: Abrasion right heel from her wheelchair which developed into infected ulcer. November and April 2013: Hospitalized here for above. September 2013: Hospitalized in [place] for infected right heel ulcer for 10 day acute hospital stay,then 3 wks swing bed for IV vancomycin. Cultures showed pseudomonas, MRSA, and Grp B beta strep. Only partial healing. Referred to IR for this as well as known PVD with markedly abnormal ABIs. 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 while undergoing colon cancer treatment) flipped and unable to access. Port removed; new port placed. October 2009: Port pocket infection (MRSA); irrigated and then placed on doxycycline and Diflucan. Good closure and healing. November 2009: Developed SVC syndrome with facial swelling. Heparinized and underwent venogram of RUEvenous system to the SVC. Found to have stenosis right subclavian, brachiocephalic, and upper IVC which all responded well to 12 mm HEAD PAPER TESTER. Also noted to have high grade stenosis lower RIJ which responded well to 12 mm HEAD PAPER TESTER. [place] to also have persistent left central venous obstruction. Facial swellingimproved. Deep vein thrombosis of left lower extremity (HCC) January 2007: Developed DVT during periods of inactivity associated with her multiple abdominal surgeries for cancer. Started on warfarin; no PE. Thrombosis of subclavian artery (HCC) Heterozygous factor V Leiden mutation (HCC) Pt and daughter report that she has Factor V Leiden mutation; on warfarin since 2006 at which timeshe had DVT. 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 Padron, [facility]). Found to have large inflammatory mass at hepatic flexure; pathology showed adenocarcinoma. Underwent righthemicolectomy, omentectomy, and colostomy. Developed wound dehiscence 9 days postop; underwent placement of retention sutures. Discharged after total acute stay of 23 days to TCU, then [facility], and theneventually swing bed in [place]. April 2007: Started chemotherapy under the direction of Dr. Thomas (XELOX x8 cycles from April 2007 to October 2007). December 2007: Colostomy takedown with reanastomosis complicated by wound dehiscence and MRSA (Dr. Padron,[facility]). Healed with packing. May 2008: As CEA was elevated and CT showed 2 cm lesion inferior to RL liver, underwent exploratory laparotomy, lysis of adhesions, partial hepatic resection, ventral hernia repair. Pathology showed metastatic adenocarcinoma. Again had wound dehiscence and MRSA with prolonged healing. Followedby ID. Treated with LT Zyvox. She has followed with Dr. Thomas; last CEA April 2013 was 2.1 Plan Changing PO antidiarrheals to scheduled each TID from PRN Adding Octreotide SQ TID Need PICC line placement if felt to have appropriate anatomy per PICC line solar site assessment specialist Anticipating a potential surgery involving distal right index finger amputation after reversal of anticoagulation. Awaiting proposed surgical date. Continuing intravenous antibiotics Continue electrolyte monitoring and replacement Radiotherapy continues on weekdays Xeloda on hold at present Follow INRs on Coumadin. PT/OT programs Discussed her frustrations with diarrhea management, IVs, etc. Discussed current clinical situation/ lab and xray results / plans with patient Answered questions from patient about overall status, progress Discussed plan updates and changes with floor RN Maicol Maldonado MD Total time of service / Floor Time: 35 minutes Time spent with patient and counseling/coordination of care: 20 minutes Maicol Miramontes MD - 10/22/2020 9:59 AM CST HEMATOLOGY ONCOLOGY INPATIENT PROGRESS NOTE 10/22/2020 NAME: Blair Stafford is a 80yr old female admitted to hospital 10/18/2020 3:26 PM Interval History 80 y/o diabetic female on triple antibiotic therapy for R index finger osteomyelitis with backgroundof cured colon cancer but more recently diagnosed early stage pancreatic and presumptive stage I RULadenoCa lung cancer. Was undergoing PO Xeloda along with pancreatic XRT for treatment of that neoplasm as the priority. XRT course is a little more than 1/2 complete; 14 of 25 fractions done as of 10/21. Experiencing diarrhea from short intestine and effects of XRT/ antibiotics. R finger is dressed in gauze. Has a chronic wet cough as well. No temps. She states that she is agreeable to go ahead with the proposed distal right finger amputation to remove the site of osteomyelitis. Medications Current Facility-Administered Medications Medication Dose Route Frequency Provider Last Rate Last Admin cefepime (MAXIPIME) 2000 mg/20 mL in sterile water IV syringe 2,000 mg IV Every 8 hours Real Burgos MD 2,000 mg at 10/22/20 0942 metroNIDAZOLE (FLAGYL) tablet 500 mg 500 mg Oral 3 times a day Real Burgos MD 500 mg at 10/22/20 0944 vancomycin in dextrose 200 mL IV piggyback (premix) 1,000 mg 1,000 mg IV Every 12 hours Real Burgos MD 1,000 mg at 10/22/20 0440 loperamide (IMODIUM) capsule 4 mg 4 mg Oral Every 4 hours prn Gertrude Thomas MD 4 mg at 10/21/20 0832 influenza HIGH DOSE virus vaccine quadrivalent IM injection 0.7 mL 0.7 mL Intramuscular Prior to discharge Gertrude Thomas MD influenza immunization reminder 1 each Does not apply Immunization prior to discharge Gertrude Thomas MD diphenoxylate-atropine (LOMOTIL) 2.5-0.025 mg tablet 2 tablet 2 tablet Oral 4 times a day prn Gertrude Thomas MD 2 tablet at 10/21/20 1512 acetaminophen (TYLENOL) tablet 500 mg 500 mg Oral Every 4 hours prn Gertrude Thomas MD gabapentin (NEURONTIN) capsule 600 mg 600 mg Oral 3 times a day Gertrude Thomas MD 600 mg at 10/21/20 2042 glipiZIDE ER (GLUCOTROL XL) extended release tablet (24 hr) 5 mg 5 mg Oral daily Gertrude Thomas MD 5 mg at 10/22/20 0944 ssnhfs-ahtwhagv-rftubxl (CREON 12,000) 12-38-60 KU capsule 1 capsule 1 capsule Oral 3 times a day with meals Gertrude Thomas MD 1 capsule at 10/22/20 0943 nicotine (NICODERM) 21mg/24hr patch 1 patch Transdermal daily Gertrude Thomas MD 21 mg at 10/20/20 0825 phytonadione (vitamin K) tablet 200 mcg 200 mcg Oral daily Gertrude Thomas MD 200 mcg at 10/22/20 0943 potassium chloride (KLOR-CON M20) CR tablet 20 mEq 20 mEq Oral 2 times a day Gertrude Thomas MD 20 mEq at 10/22/20 0943 triamcinolone acetonide (KENALOG,ARISTOCORT) 0.1 % cream Apply externally 2 times a day Getrrude Thomas MD Given at 10/22/20 0942 senna-docusate sodium (SENOKOT-S;PERICOLACE) tablet 1 tablet 1 tablet Oral 2 times a day prn Gertrude Thomas MD bisacodyl (DULCOLAX) suppository 10 mg 10 mg Rectal 1 time a day prn Gertrude Thomas MD ondansetron (ZOFRAN) injection solution 4 mg 4 mg IV Every 4 hours prn Gertrude Thomas MD 4mg at 10/21/20 0838 prochlorperazine (COMPAZINE) 10 mg/2 mL injection solution 5 mg 5 mg IV Every 6 hours prn Gertrude Thomas MD sodium chloride 0.9% flush (adult) 10 mL 10 mL IV 2 times a day and prn Gertrude Thomas MD potassium chloride 20mEq in sodium chloride 0.9% 1000 mL IV solution IV Continuous Gertrude Thomas MD 75 mL/hr at 10/22/20 0438 New Bag at 10/22/20 0438 HYDROmorphone (DILAUDID) injection solution (conc: 0.5 mg/0.5mL) 0.5 mg 0.5 mg IV Every 1 hour prGertrude Gutierrez MD HYDROmorphone (DILAUDID) injection solution (conc: 1 mg/mL) 1 mg 1 mg IV Every 1 hour prGertrude Gutierrez MD traZODone (DESYREL) tablet 50 mg 50 mg Oral Bedtime prn Gertrude Thomas MD multivitamin therapeutic with minerals (THERA-M) tablet 1 tablet 1 tablet Oral Daily Gertrude Thomas MD 1 tablet at 10/22/20 0944 dextrose 50% IV solution 50 mL 25 g IV PRN per parameter Gertrude Thomas MD glucagon for injection 1 mg vial 1 mg 1 mg Intramuscular PRN per parameter Gertrude Thomas MD dextrose chewable tablet 16 g 4 tablet Oral PRN per parameter Gertrude Thomas MD Or carbohydrate 15 g 15 g Oral PRN per parameter Gertrude Thomas MD insulin aspart (NovoLOG) SQ correction scale (Adult) 2-8 Units Subcutaneous 3 times a day Gertrude Thomas MD 2 Units at 10/22/20 0550 .Anticoagulation (WARFARIN) therapy nursing reminder 1 each Does not apply Reminder Gertrude Thomas MD Facility-Administered Medications Ordered in Other Encounters Medication Dose Route Frequency Provider Last Rate Last Admin sodium chloride 0.9% injection solution 10-20 mL 10-20 mL IV PRN per parameter Donna Ordazi A,MAT MAKING MACHINE TENDER-SHIP WASHER heparin 100 units/ mL injection for heplock FLUSH 5 mL IV PRN per parameter Irian Ordaz MAT MAKING MACHINE TENDER-SHIP WASHER sodium chloride 0.9% prefilled 10 mL syringe (Materials Management Item) 20 mL 20 mL IV As often as necessary prn Irina Ordaz MAT MAKING MACHINE TENDER-SHIP WASHER And heparin 100 units/ mL injection for heplock FLUSH 500 Units IV As often as necessary prn Irina Ordaz, MAT MAKING MACHINE TENDER-SHIP WASHER sodium chloride (vial) 0.9% flush 20 mL 20 mL IV As often as necessary prn Irina Ordaz A, MAT MAKING MACHINE TENDER-SHIP WASHER heparin 100 units/ mL injection for heplock FLUSH 5 mL IV 1 time Irina Ordaz MAT MAKING MACHINE TENDER-SHIP WASHER sodium chloride (vial) 0.9% flush 20 mL 20 mL IV As often as necessary prn Irina Ordaz A, MAT MAKING MACHINE TENDER-SHIP WASHER heparin 100 units/ mL injection for heplock FLUSH 5 mL IV 1 time Irina Ordaz A, MAT MAKING MACHINE TENDER-SHIP WASHER Allergies Allergies Allergen Reactions Penicillin Hives (High) Adhesives Rash Mepilex Border dressing Bactericin [Bacitracin] Unknown/Not Verified Cortisporin [Suncicnh-Cwylbegdb-Yf] Rash Hydrocortisone [Cortizone] Unknown/Not Verified Levofloxacin Itching and Rash Lincocin Unknown/Not Verified [facility] Ca Alginate 2"X2" [Alginate - Carboxymethylcellulose - Silver] Unknown/Not Verified Patient unable to give me symptoms Monistat [Tioconazole] Unknown/Not Verified Septra [Sulfamethoxazole W-Trimethoprim] Unknown/Not Verified Silvadene [Silver Sulfadiazine] Other (Specify in Comments) Blister with silvadene cream, anything with silver (aquacel wound products) Silver Picrate Rash Silver products Soap Itching Hospital soap and lotions, uses dove. Sodium Acetate Unknown/Not Verified Sulfa Drugs Unknown/Not Verified Sulfamethoxazole W-Trimethoprim Rash Tpn Electrolytes Ii [Lypholyte] Unknown/Not Verified Xeroform [Bismuth Tribromoph-Petrolatum] Unknown/Not Verified Patient not able to give me symptoms ROS: 12 system ROS obtained. Pertinent positives as noted in HPI above. Physical Exam: Current Vital Signs Temp: 97.4 F (36.3 C) BP: 102/52 Pulse: 85 O2 Device: Room Air Resp: 18 Pain Ratin (out of 10) Weight: 53.9 kg (118 lb 13.3 oz) SpO2: 96 % Maximum Temperatures (last 24 hours) Temperature Maximum Max Temp 98.2 F (36.8 C) Wt Readings from Last 3 Encounters: 10/22/20 53.9 kg (118 lb 13.3 oz) 09/13/20 59 kg (130 lb) 09/13/20 59 kg (130 lb) General Appearance: Comfortable, alert Integument: No rashes or subcutaneous nodules, no petechiae Eyes: Pupils equal and reactive, no exudate, Sclera anicteric, conjunctivae and lids normal Mouth: Lips, dentition and gingiva healthy in appearance. No oropharyngeal ulceration or mucositis Respiratory: Effort normal. Lungs clear to auscultation. No rales, rhonchi, or wheezes. No dullnessto percussion. Cardiovascular: Heart of regular rate and rhythm. No murmurs or extra heart sounds. No lower extremity edema or varicosities. Abdomen: Soft, non tender, non distended. No hepatomegaly, no splenomegaly, no shifting dullness to percussion Extremities: No inflammatory joint changes, no deformities; R index finger dressed. Labs/Imaging Lab Results Component Value Date WBC 4.5 10/22/2020 NUCRBC 0 10/22/2020 RBC 4.19 10/22/2020 HEMOGLOBIN 11.8 10/22/2020 HEMATOCRIT 36.3 10/22/2020 MCV 86.6 10/22/2020 MCH 28.2 10/22/2020 MCHC 32.5 10/22/2020 RDW 13.6 09/29/2020 PLTCOUNT 99 (L) 10/22/2020 NEUTROPCT 77.5 10/22/2020 BANDPCT 2 05/09/2013 LYMPHSPCT 5.8 10/22/2020 MONOSPCT 14.3 10/22/2020 EOSPCT 1.8 10/22/2020 BASOPHILPCT 0.2 10/22/2020 METAMYELOPCT 2 (H) 05/09/2013 MYELOCYTEPCT 2 (A) 05/09/2013 Lab Results Component Value Date GLUCOSE 172 (H) 10/22/2020 BUN 7 10/22/2020 CREATSERUM 0.64 10/22/2020 BCRATIO 10.9 10/22/2020 NA 136 10/22/2020 POTASSIUM 4.3 10/22/2020 CL 107 10/22/2020 CO2 23 10/22/2020 ANIONGAP 10.2 09/25/2020 CA 7.3 (L) 10/22/2020 PROTEINTOTAL 6.6 10/18/2020 ALBUMIN 2.1 (L) 10/22/2020 ALKPHOS 134 10/18/2020 AST 17 10/18/2020 ALT 8 10/18/2020 BILITOTAL 1.2 10/18/2020 I have reviewed the laboratory studies myself. Impression Complex case 80 y/o diabetic female with cured colorectal cancer but new R lung and pancreatic cancers, the latter undergoing combined modality therapy with oral Xeloda along with radiotherapeutic pancreas. Osteomyelitis right index finger currently on triple antibiotics. Difficulties with diarrhea from a combination of short gut, ongoing chemoradiation, and introductionof antibiotic therapy. Thromboembolic history, currently on Coumadin. 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) Finger infection Hypophosphatemia Hypomagnesemia Malignant neoplasm of head of pancreas (HCC) Adenocarcinoma, lung, right (HCC) Hypokalemia Pancreatic cancer (HCC) Malignant neoplasm of upper lobe of right lung (HCC) Lung nodule Pancreatic mass Thymoma Coughing Sepsis (HCC) CE (acute kidney injury) (HCC) Diarrhea, unspecified NSTEMI (non-ST elevated myocardial infarction) (HCC) Acute kidney injury (HCC) Cough Elevated factor VIII level Iron deficiency Anemia Fatigue Encounter for central line care Tobacco abuse Peripheral vascular disease (HCC) 2005: Nonhealing right sweet ulcer in the setting of severe PVD. Underwent RCFA to above knee popliteal artery bypass with PTFE (8 mm); Dr. Haider. Ulceration healed well after surgery. 2011: Nonhealing right heel ulcer with occlusion previous graft and occlusion RSFA. Underwent redoright femoral to above knee popliteal bypass with 6 mm ringed Poupart Goretex graft and debridement of ulcer. As of October,, ulcer has not healed. Ischemic heel ulcer (HCC) May 2012: Abrasion right heel from her wheelchair which developed into infected ulcer. November and April 2013: Hospitalized here for above. September 2013: Hospitalized in [place] for infected right heel ulcer for 10 day acute hospital stay,then 3 wks swing bed for IV vancomycin. Cultures showed pseudomonas, MRSA, and Grp B beta strep. Only partial healing. Referred to IR for this as well as known PVD with markedly abnormal ABIs. 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 while undergoing colon cancer treatment) flipped and unable to access. Port removed; new port placed. October 2009: Port pocket infection (MRSA); irrigated and then placed on doxycycline and Diflucan. Good closure and healing. November 2009: Developed SVC syndrome with facial swelling. Heparinized and underwent venogram of RUEvenous system to the SVC. Found to have stenosis right subclavian, brachiocephalic, and upper IVC which all responded well to 12 mm HEAD PAPER TESTER. Also noted to have high grade stenosis lower RIJ which responded well to 12 mm HEAD PAPER TESTER. [place] to also have persistent left central venous obstruction. Facial swellingimproved. Deep vein thrombosis of left lower extremity (HCC) January 2007: Developed DVT during periods of inactivity associated with her multiple abdominal surgeries for cancer. Started on warfarin; no PE. Thrombosis of subclavian artery (HCC) Heterozygous factor V Leiden mutation (HCC) Pt and daughter report that she has Factor V Leiden mutation; on warfarin since 2006 at which timeshe had DVT. 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 Padron [facility]). Found to have large inflammatory mass at hepatic flexure; pathology showed adenocarcinoma. Underwent righthemicolectomy, omentectomy, and colostomy. Developed wound dehiscence 9 days postop; underwent placement of retention sutures. [facility] after total acute stay of 23 [facility] [place]. April 2007: Started chemotherapy under the direction of Dr. Thomas (XELOX x8 cycles from April 2007 to October 2007). December 2007: Colostomy takedown with reanastomosis complicated by wound dehiscence and [facility] Healed with packing. May 2008: As CEA was elevated and CT showed 2 cm lesion inferior to RL liver, underwent exploratory laparotomy, lysis of adhesions, partial hepatic resection, ventral hernia repair. Pathology showed metastatic adenocarcinoma. Again had wound dehiscence and MRSA with prolonged healing. Followedby ID. Treated with LT Zyvox. She has followed with Dr. Thomas; last CEA April 2013 was 2.1 Plan Anticipating a potential surgery involving distal right index finger amputation after reversal of anticoagulation. Awaiting proposed surgical date. Continuing intravenous antibiotics Continue electrolyte monitoring and replacement Radiotherapy continues on weekdays Xeloda on hold at present Follow INRs on Coumadin. PT/OT programs Maicol Maldonado MD Total time of service / Floor Time: 35 minutes Time spent with patient and counseling/coordination of care: 20 minutes eGertrude connolly MD - 10/21/2020 7:16 PM CST Hospital Progress Note Blair Stafford is a 80yr old female admitted on 10/18/2020. 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 * Plan: Continue Cefepime/Metronidazole/Vancomycin. Surgery by Dr Casas. Replace phosphate and mag IV. HPI / History / ROS HPI Mrs. Stafford is an 80-year-old white female patient who has been followed by me over the years for colon cancer. She also has problems with persistent thromboembolic disease. She is on chronic anticoagulation with warfarin. She was diagnosed recently with stage I lung cancer and a stage I cancer of the pancreas. We decided to approach the cancer of the pancreas first with chemoradiation. She started treatment a couple of weeks ago. Her chemotherapy is capecitabine as a radiosensitizer at a very low dose of 500 mg twice a day. I saw the patient on 10/18/2020 for routine followup. She complained of severe pain of the right 2nd finger. Her fingernail fell off and the tip of the finger fell off as well. The wound did not seem to be infected, but she had cellulitis of the right 2nd finger, and this was excruciatingly painful. She did try to take cephalexin that she had at home, but it did not help. In view of that, plus the fact that she had severe diarrhea, plus the fact that she was dehydrated, I did admit her for IV antibiotics and IV hydration. She also has hypokalemia, hypomagnesemia, hypophosphatemia, and these will need to be replaced intravenously since she is not able to tolerate lotsof oral replacement. I decided to treat her finger cellulitis with Rocephin. She received the 1st dose on 10/18/2020. When seen on 10/19/2020, her right 2nd finger had somewhat improved. I did request a hand surgery consultation, but this has not been done yet. She also has a diabetic ulcer on the right lower extremity, which is being taken care of by the wound nurse. Her lab work on 10/19/2020 showed a white count of 6,000, hemoglobin 11.4, platelet count 94,000. Differential count normal. Chemistries: Glucose 203, sodium 133, potassium 3.0, phosphorus 2.2, magnesium 2.0 after replacement. INR 2.0. I gave her more IV potassium and phosphate. She still has quite severe diarrhea despite taking Lomotil. She takes 2 tablets 4 times a day, which is a high dose, but it seems that that is what she needs to control the diarrhea. Once the diarrhea is controlled, I might go back on capecitabine. The patient is anxious to go home and does not want to stay in the hospital any longer than necessary. I told her that we better give her 5 days of IV antibiotics and try to get her finger in a better shape. Otherwise, if we stop the antibiotic therapy too soon, the cellulitis of the right 2nd finger might flare up again. She agreed to stay to complete her IV antibiotics. On 10/20/20 she had an XR of the Rt hand showing: FINDING: Bony irregularity and/or fracture second digit distal phalanx. Some soft tissue injury changes are also present correlate for recent trauma versus infection. On 10/20/20 Mrs Stafford was seen in her hospital room. She continued to improve. Eating better. The Rt 2nd finger was still hurting. She had a mild cough. The RLE ulcer was dressed. She had an JACQUI bandage around the Rt lower leg. She still had severe diarrhea despite the Lomotil. She had 6 BM's today.She did continue with the RT. Her exam was basically unchanged. Her lab work showed a WBC of 5.0 with an ANC of 4.0; Hgb 11.9 g/dL; Plt 104,000. Glucose 157 mg/dL; phosphorus 1.8 mg/dL; mag 1.5 mg/dL. Albumin 2.2 g/dL. Other chemistries were WNL. She still had evidence of protein/caloric malnutrition.The dietitian was consulted. She did receive her RT today. She requested to add Imodium to her Lomotil. I did order it. Awaiting opinion from hand surgery. For now,I continued Rocephin and replaced herelectrolytes IV. 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 He recommended amputation. The Pt declined. She said that she wanted to complete her RT first.ID consult was requested. On 10/21/20 she had a CXR showing: FINDINGS/IMPRESSION: The cardiac silhouette is normal in size. There is calcified atherosclerosis of the thoracic aorta. There is a 1.3 cm nodular opacity within the mid right lung which likely corresponds with the hypermetabolic nodule in the periphery of the right upper lobe on the prior PET/CT from 07/27/2020. No additional pulmonary nodules are identified. No focal airspace consolidation. No pneumothorax or pleural effusion. On 10/21/20 she was seen by Dr Burgos from ID. He did change the antibiotic to a combination of Cefepime/Metronidazole/Vancomycin. He felt that she should have surgery soon. On 10/21/20 I saw Mrs Stafford in her hospital room. She was feeling fairly well. Her diarrhea had improved. But she was not eating much. Her pain was at an acceptable level. Her exam was unchanged. I explained to her that she needed surgery soon. She agreed to have it done. I'll let Dr Casas know. Hope to have her surgery next week and resume her radiosensitizing chemotherapy. RT can continue since it has no effect on the finger.Her electrolytes were replaced IV. Her CXR was reviewed and felt unchanged. Review of Systems Constitutional: Positive for fatigue. Negative for activity change, appetite change, chills, diaphoresis, fever and unexpected weight change. HENT: Positive for hearing loss. Negative for mouth sores and nosebleeds. Eyes: Negative. Respiratory: Positive for cough. Cardiovascular: Negative. Gastrointestinal: Positive for diarrhea. Endocrine: Positive for cold intolerance. Genitourinary: Negative. Musculoskeletal: Positive for arthralgias (Pain in the Rt foot and Rt 2nd finger). Skin: Positive for wound. Neurological: Positive for weakness. Hematological: Negative. Psychiatric/Behavioral: Negative. Physical / Results Current Vital Signs Temp: 97.9 F (36.6 C) BP: 127/58 Weight: 55 kg (121 lb 4.1 oz) SpO2: 93 % Resp: 18 Pulse: 93 Current BMI (>50 = increased risk): 23.5 O2 Device: Room Air Pain Ratin Physical Exam Constitutional: General: She is not in acute distress. Appearance: Normal appearance. She is normal weight. She is not ill- appearing, toxic-appearing ordiaphoretic. HENT: Head: Normocephalic. Nose: Nose normal. Mouth/Throat: Mouth: Mucous membranes are moist. Pharynx: Oropharynx is clear. No oropharyngeal exudate. Eyes: General: No scleral icterus. Conjunctiva/sclera: Conjunctivae normal. Pupils: Pupils are equal, round, and reactive to light. Neck: Musculoskeletal: Normal range of motion and neck supple. Cardiovascular: Rate and Rhythm: Normal rate and regular rhythm. Heart sounds: No murmur. Pulmonary: Effort: Pulmonary effort is normal. Breath sounds: Normal breath sounds. Abdominal: General: Abdomen is flat. Bowel sounds are normal. Palpations: Abdomen is soft. Musculoskeletal: Normal range of motion. Comments: The Rt second finger is in a dressing. Skin: General: Skin is warm. Findings: Erythema and lesion present. Neurological: General: No focal deficit present. Mental Status: She is alert. Psychiatric: Mood and Affect: Mood normal. Results for BLAIR STAFFORD ( ) as of 10/21/2020 19:22 Ref. Range 10/21/2020 06:50 WBC Latest Ref Range: 4.0 - 11.0 K/uL 4.2 RBC Latest Ref Range: 3.80 - 5.30 M/uL 4.09 Hemoglobin Latest Ref Range: 11.5 - 15.8 g/dL 11.6 Hematocrit Latest Ref Range: 35.0 - 45.0 % 35.4 MCV Latest Ref Range: 80.0 - 98.0 fL 86.6 MCH Latest Ref Range: 25.5 - 34.0 pg 28.4 MCHC Latest Ref Range: 31.5 - 36.5 g/dL 32.8 RDW-CV Latest Ref Range: 11.5 - 15.5 % 15.9 (H) RDW-SD Latest Ref Range: 35.5 - 50.0 fl 49.3 Platelet Count Latest Ref Range: 140 - 400 K/uL 91 (L) MPV Latest Ref Range: 8.5 - 12.0 fL 12.3 (H) Seg Neut Absolute Latest Ref Range: 1.8 - 8.0 K/uL 3.3 Lymphocytes Absolute Latest Ref Range: 0.8 - 4.1 K/uL 0.3 (L) Monocytes Absolute Latest Ref Range: 0.0 - 1.0 K/uL 0.5 Eosinophils Absolute Latest Ref Range: 0.0 - 0.7 K/uL 0.1 Basophil Absolute Latest Ref Range: 0.0 - 0.2 K/uL 0.0 Immature Granulocyte Absolute Latest Ref Range: 0.00 - 0.06 K/uL 0.02 Neutrophils Percent Latest Units: % 77.6 Neutrophils Abs. (Segs and Bands) Latest Units: /uL 3,300 Lymphocytes Percent Latest Units: % 7.4 Monocytes Percent Latest Units: % 12.6 Immature Granulocyte Percent Latest Units: % 0.5 Eosinophils Percent Latest Units: % 1.7 Basophil Percent Latest Units: % 0.2 Nucleated RBC Latest Units: /100 WBC's 0 Glucose Latest Ref Range: 70 - 100 mg/dL 204 (H) Sodium Latest Ref Range: 135 - 145 meq/L 136 Potassium Latest Ref Range: 3.5 - 5.3 meq/L 3.3 (L) Chloride Latest Ref Range: 99 - 110 meq/L 106 CO2 Latest Ref Range: 20 - 29 meq/L 19 (L) Anion Gap with K Latest Ref Range: 6 - 20 meq/L 14 BUN Latest Ref Range: 6 - 22 mg/dL 6 Creatinine Latest Ref Range: 0.60 - 1.10 mg/dL 0.58 (L) BUN/Creatinine Ratio Latest Ref Range: 10.0 - 25.0 10.3 Calcium Latest Ref Range: 8.5 - 10.5 mg/dL 7.0 (L) Corrected Calcium Latest Ref Range: 8.5 - 10.5 mg/dL 8.4 (L) Phosphorus Latest Ref Range: 2.5 - 4.5 mg/dL 3.7 Magnesium Latest Ref Range: 1.8 - 2.4 mg/dL 1.7 (L) Albumin Latest Ref Range: 3.5 - 5.0 g/dL 2.2 (L) CRP Latest Ref Range: 0.0 - 8.0 mg/L 57.0 (H) eGFR Latest Ref Range: >=60 mL/min/1.73m2 >90 eGFR Non- Latest Ref Range: >=60 mL/min/1.73m2 >90 Protime Latest Ref Range: 12.0 - 14.5 secs 22.1 (H) INR Latest Ref Range: 2.0 - 3.5 2.0 ESR Latest Ref Range: 0 - 29 mm/Hr 40 (H) EXAM: XRAY CHEST PA AND LATERAL INDICATION:Cough. COMPARISON(S): Chest CT from 07/18/2020. FINDINGS/IMPRESSION: The cardiac silhouette is normal in size. There is calcified atherosclerosis of the thoracic aorta. There is a 1.3 cm nodular opacity within the mid right lung which likely corresponds with the hypermetabolic nodule in the periphery of the right upper lobe on the prior PET/CT from 07/27/2020. No additional pulmonary nodules are identified. No focal airspace consolidation. No pneumothorax or pleural effusion. STANT SURVEYOR Gertrude Thomas MD - 10/20/2020 6:54 PM CST Hematology/Oncology Daily Progress Note Blair Stafford is a 80yr old female admitted on 10/18/2020. 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 * Plan: Continue Rocephin. Await surgical opinion. Continue RT. Add Imodium for the diarrhea. Replace electrolytes IV. Continue daily monitoring of her labs. Continue to hold Capecitabine. HPI / History / ROS HPI Mrs. Stafford is an 80-year-old white female patient who has been followed by me over the years for colon cancer. She also has problems with persistent thromboembolic disease. She is on chronic anticoagulation with warfarin. She was diagnosed recently with stage I lung cancer and a stage I cancer of the pancreas. We decided to approach the cancer of the pancreas first with chemoradiation. She started treatment a couple of weeks ago. Her chemotherapy is capecitabine as a radiosensitizer at a very low dose of 500 mg twice a day. I saw the patient on 10/18/2020 for routine followup. She complained of severe pain of the right 2ndfinger. Her fingernail fell off and the tip of the finger fell off as well. The wound did not seemto be infected, but she had cellulitis of the right 2nd finger, and this was excruciatingly painful. She did try to take cephalexin that she had at home, but it did not help. In view of that, plus the fact that she had severe diarrhea, plus the fact that she was dehydrated, I did admit her for IV antibiotics and IV hydration. She also has hypokalemia, hypomagnesemia, hypophosphatemia, and these will need to be replaced intravenously since she is not able to tolerate lots of oral replacement. I decided to treat her finger cellulitis with Rocephin. She received the 1st dose on 10/18/2020. When seen on 10/19/2020, her right 2nd finger had somewhat improved. I did request a hand surgery consultation, but this has not been done yet. She also has a diabetic ulcer on the right lower extremity, which is being taken care of by the wound nurse. Her lab work on 10/19/2020 showed a white count of 6,000, hemoglobin 11.4, platelet count 94,000. Differential count normal. Chemistries: Glucose 203, sodium 133, potassium 3.0, phosphorus 2.2, magnesium 2.0 after replacement. INR 2.0. I gave her more IV potassium and phosphate. She still has quite severe diarrhea despite taking Lomotil. She takes 2 tablets 4 times a day, which is a high dose, but it seems that that is what she needs to control the diarrhea. Once the diarrhea is controlled, I might go back on capecitabine. The patient is anxious to go home and does not want to stay in the hospital any longer than necessary. I told her that we better give her 5 days of IVantibiotics and try to get her finger in a better shape. Otherwise, if we stop the antibiotic therapy too soon, the cellulitis of the right 2nd finger might flare up again. She agreed to stay to complete her IV antibiotics. On 10/20/20 she had an XR of the Rt hand showing: FINDING: Bony irregularity and/or fracture second digit distal phalanx. Some soft tissue injury changes are also present correlate for recent trauma versus infection. On 10/20/20 Mrs Stafford was seen in her hospital room. She continued to improve. Eating better. The Rt 2nd finger was still hurting. She had a mild cough. The RLE ulcer was dressed. She had an JACQUI bandage around the Rt lower leg. She still had severe diarrhea despite the Lomotil. She had 6 BM's today.She did continue with the RT. Her exam was basically unchanged. Her lab work showed a WBC of 5.0 with an ANC of 4.0; Hgb 11.9 g/dL; Plt 104,000. Glucose 157 mg/dL; phosphorus 1.8 mg/dL; mag 1.5 mg/dL. Albumin 2.2 g/dL. Other chemistries were WNL. She still had evidence of protein/caloric malnutrition.The dietitian was consulted. She did receive her RT today. She requested to add Imodium to her Lomotil. I did order it. Awaiting opinion from hand surgery. For now,I continued Rocephin and replaced herelectrolytes IV. Review of Systems Constitutional: Positive for appetite change (Improving.), fatigue and unexpected weight change. Negative for chills, diaphoresis and fever. HENT: Positive for hearing loss. Eyes: Negative. Respiratory: Positive for cough. Negative for chest tightness, hemoptysis, shortness of breath and wheezing. Cardiovascular: Negative. Gastrointestinal: Positive for diarrhea. Endocrine: Negative. Genitourinary: Negative. Skin: Positive for wound. Negative for itching and rash. Neurological: Positive for extremity weakness. Hematological: Negative. Psychiatric/Behavioral: Negative. Physical / Results Current Vital Signs Temp: 97.4 F (36.3 C) BP: 111/58 Weight: 54 kg (119 lb 0.8 oz) SpO2: 95 % Resp: 16 Pulse: 84 Current BMI (>50 = increased risk): 23.5 O2 Device: Room Air Pain Ratin Maximum Temperatures (last 24 hours) Temperature Maximum Max Temp 98.7 F (37.1 C) Intake and Output: 10/19 0700 - 10/20 0659 In: 2154 [Oral:240] Out: 150 [Urine:150] Physical Exam Constitutional: General: She is not in acute distress. Appearance: Normal appearance. She is not ill-appearing, toxic-appearing or diaphoretic. HENT: Head: Normocephalic. Nose: Nose normal. Mouth/Throat: Mouth: Mucous membranes are moist. Pharynx: Oropharynx is clear. No oropharyngeal exudate. Eyes: General: No scleral icterus. Conjunctiva/sclera: Conjunctivae normal. Pupils: Pupils are equal, round, and reactive to light. Neck: Musculoskeletal: Normal range of motion. Cardiovascular: Rate and Rhythm: Normal rate and regular rhythm. Heart sounds: No murmur. Pulmonary: Effort: Pulmonary effort is normal. Breath sounds: Normal breath sounds. Abdominal: General: Abdomen is flat. Bowel sounds are normal. Palpations: Abdomen is soft. Musculoskeletal: Normal range of motion. Comments: The Rt 2nd finger is dressed. Skin: General: Skin is warm and dry. Coloration: Skin is not jaundiced or pale. Neurological: General: No focal deficit present. Mental Status: She is alert. Psychiatric: Mood and Affect: Mood normal. Results for BLAIR STAFFORD ( ) as of 10/20/2020 19:00 Ref. Range 10/20/2020 07:09 WBC Latest Ref Range: 4.0 - 11.0 K/uL 5.0 RBC Latest Ref Range: 3.80 - 5.30 M/uL 4.18 Hemoglobin Latest Ref Range: 11.5 - 15.8 g/dL 11.9 Hematocrit Latest Ref Range: 35.0 - 45.0 % 36.2 MCV Latest Ref Range: 80.0 - 98.0 fL 86.6 MCH Latest Ref Range: 25.5 - 34.0 pg 28.5 MCHC Latest Ref Range: 31.5 - 36.5 g/dL 32.9 RDW-CV Latest Ref Range: 11.5 - 15.5 % 15.7 (H) RDW-SD Latest Ref Range: 35.5 - 50.0 fl 48.6 Platelet Count Latest Ref Range: 140 - 400 K/uL 104 (L) MPV Latest Ref Range: 8.5 - 12.0 fL 12.9 (H) Seg Neut Absolute Latest Ref Range: 1.8 - 8.0 K/uL 4.0 Lymphocytes Absolute Latest Ref Range: 0.8 - 4.1 K/uL 0.4 (L) Monocytes Absolute Latest Ref Range: 0.0 - 1.0 K/uL 0.5 Eosinophils Absolute Latest Ref Range: 0.0 - 0.7 K/uL 0.1 Basophil Absolute Latest Ref Range: 0.0 - 0.2 K/uL 0.0 Immature Granulocyte Absolute Latest Ref Range: 0.00 - 0.06 K/uL 0.02 Neutrophils Percent Latest Units: % 81.2 Neutrophils Abs. (Segs and Bands) Latest Units: /uL 4,000 Lymphocytes Percent Latest Units: % 7.8 Monocytes Percent Latest Units: % 9.4 Immature Granulocyte Percent Latest Units: % 0.4 Eosinophils Percent Latest Units: % 1.0 Basophil Percent Latest Units: % 0.2 Nucleated RBC Latest Units: /100 WBC's 0 Glucose Latest Ref Range: 70 - 100 mg/dL 157 (H) Sodium Latest Ref Range: 135 - 145 meq/L 135 Potassium Latest Ref Range: 3.5 - 5.3 meq/L 3.7 Chloride Latest Ref Range: 99 - 110 meq/L 106 CO2 Latest Ref Range: 20 - 29 meq/L 22 Anion Gap with K Latest Ref Range: 6 - 20 meq/L 11 BUN Latest Ref Range: 6 - 22 mg/dL 7 Creatinine Latest Ref Range: 0.60 - 1.10 mg/dL 0.61 BUN/Creatinine Ratio Latest Ref Range: 10.0 - 25.0 11.5 Calcium Latest Ref Range: 8.5 - 10.5 mg/dL 7.1 (L) Corrected Calcium Latest Ref Range: 8.5 - 10.5 mg/dL 8.5 Phosphorus Latest Ref Range: 2.5 - 4.5 mg/dL 1.8 (L) Magnesium Latest Ref Range: 1.8 - 2.4 mg/dL 1.5 (L) Albumin Latest Ref Range: 3.5 - 5.0 g/dL 2.2 (L) eGFR Latest Ref Range: >=60 mL/min/1.73m2 >90 eGFR Non- Latest Ref Range: >=60 mL/min/1.73m2 >90 Protime Latest Ref Range: 12.0 - 14.5 secs 22.8 (H) INR Latest Ref Range: 2.0 - 3.5 2.0 EXAM: XRAY HAND MIN 3 VIEWS RT INDICATION:Rt 2nd finger inflamed. COMPARISON(S): None Available FINDING: Bony irregularity and/or fracture second digit distal phalanx. Some soft tissue injury changes are also present correlate for recent trauma versus infection. STANT SURVEYOR Gertrude Thomas MD - 10/19/2020 7:52 PM CST Hematology/Oncology Daily Progress Note Blair Stafford is a 80yr old female admitted on 10/18/2020. 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 * Plan: Continue Rocephin. Await hand surgery to see her. Replace electrolytes IV. Continue to hold Capecitabine. HPI / History / ROS HPI Mrs. Stafford is an 80-year-old white female patient who has been followed by me over the years for colon cancer. She also has problems with persistent thromboembolic disease. She is on chronic anticoagulation with warfarin. She was diagnosed recently with stage I lung cancer and a stage I cancer of the pancreas. We decided to approach the cancer of the pancreas first with chemoradiation. She started treatment a couple of weeks ago. Her chemotherapy is capecitabine as a radiosensitizer at a very low dose of 500 mg twice a day. I saw the patient on 10/18/2020 for routine followup. She complained of severe pain of the right 2ndfinger. Her fingernail fell off and the tip of the finger fell off as well. The wound did not seemto be infected, but she had cellulitis of the right 2nd finger, and this was excruciatingly painful. She did try to take cephalexin that she had at home, but it did not help. In view of that, plus the fact that she had severe diarrhea, plus the fact that she was dehydrated, I did admit her for IV antibiotics and IV hydration. She also has hypokalemia, hypomagnesemia, hypophosphatemia, and these will need to be replaced intravenously since she is not able to tolerate lots of oral replacement. I decided to treat her finger cellulitis with Rocephin. She received the 1st dose on 10/18/2020. When seen on 10/19/2020, her right 2nd finger had somewhat improved. I did request a hand surgery consultation, but this has not been done yet. She also has a diabetic ulcer on the right lower extremity, which is being taken care of by the wound nurse. Her lab work on 10/19/2020 showed a white count of 6,000, hemoglobin 11.4, platelet count 94,000. Differential count normal. Chemistries: Glucose 203, sodium 133, potassium 3.0, phosphorus 2.2, magnesium 2.0 after replacement. INR 2.0. I gave her more IV potassium and phosphate. She still has quite severe diarrhea despite taking Lomotil. She takes 2 tablets 4 times a day, which is a high dose, but it seems that that is what she needs to control the diarrhea. Once the diarrhea is controlled, I might go back on capecitabine. The patient is anxious to go home and does not want to stay in the hospital any longer than necessary. I told her that we better give her 5 days of IVantibiotics and try to get her finger in a better shape. Otherwise, if we stop the antibiotic therapy too soon, the cellulitis of the right 2nd finger might flare up again. She agreed to stay to complete her IV antibiotics. Receipt: [id number] Trans ID: [id number] ASSISTANT SURVEYOR [facility] Dictated # [id number] Review of Systems Constitutional: Positive for fatigue. Negative for appetite change, chills, diaphoresis, fever and unexpected weight change. HENT: Positive for hearing loss. Negative for mouth sores, sore throat and trouble swallowing. Eyes: Negative. Respiratory: Negative. Cardiovascular: Negative. Gastrointestinal: Negative. Endocrine: Negative. Genitourinary: Negative. Musculoskeletal: Positive for arthralgias (The Rt foot hurts.). Skin: Positive for wound. Negative for itching and rash. Neurological: Positive for extremity weakness. Hematological: Negative. Psychiatric/Behavioral: Negative. Physical / Results Current Vital Signs Temp: 96.5 F (35.8 C) BP: 130/68 Weight: 52.8 kg (116 lb 6.5 oz) SpO2: 98 % Resp: 16 Pulse: 100 Current BMI (>50 = increased risk): 23.5 O2 Device: Room Air Pain Ratin Maximum Temperatures (last 24 hours) Temperature Maximum Max Temp 97.9 F (36.6 C) Intake and Output: 10/18 0700 - 10/19 0659 In: - Out: 350 [Urine:350] Physical Exam Constitutional: Appearance: Normal appearance. She is not toxic-appearing or diaphoretic. HENT: Head: Normocephalic. Nose: Nose normal. Mouth/Throat: Mouth: Mucous membranes are moist. Pharynx: Oropharynx is clear. No oropharyngeal exudate. Eyes: General: No scleral icterus. Conjunctiva/sclera: Conjunctivae normal. Pupils: Pupils are equal, round, and reactive to light. Neck: Musculoskeletal: Normal range of motion and neck supple. Cardiovascular: Rate and Rhythm: Normal rate and regular rhythm. Heart sounds: No murmur. Pulmonary: Effort: Pulmonary effort is normal. Breath sounds: Normal breath sounds. Abdominal: General: Abdomen is flat. Bowel sounds are normal. Palpations: Abdomen is soft. Musculoskeletal: Normal range of motion. General: Tenderness (Rt 2nd finger.) present. No swelling. Skin: General: Skin is warm and dry. Findings: Erythema present. Neurological: General: No focal deficit present. Mental Status: She is alert. Psychiatric: Mood and Affect: Mood normal. Results for BLAIR STAFFORD ( ) as of 10/19/2020 19:57 Ref. Range 10/19/2020 05:30 WBC Latest Ref Range: 4.0 - 11.0 K/uL 6.0 RBC Latest Ref Range: 3.80 - 5.30 M/uL 4.05 Hemoglobin Latest Ref Range: 11.5 - 15.8 g/dL 11.4 (L) Hematocrit Latest Ref Range: 35.0 - 45.0 % 34.6 (L) MCV Latest Ref Range: 80.0 - 98.0 fL 85.4 MCH Latest Ref Range: 25.5 - 34.0 pg 28.1 MCHC Latest Ref Range: 31.5 - 36.5 g/dL 32.9 RDW-CV Latest Ref Range: 11.5 - 15.5 % 15.3 RDW-SD Latest Ref Range: 35.5 - 50.0 fl 46.7 Platelet Count Latest Ref Range: 140 - 400 K/uL 94 (L) MPV Latest Ref Range: 8.5 - 12.0 fL 12.4 (H) Seg Neut Absolute Latest Ref Range: 1.8 - 8.0 K/uL 5.0 Lymphocytes Absolute Latest Ref Range: 0.8 - 4.1 K/uL 0.4 (L) Monocytes Absolute Latest Ref Range: 0.0 - 1.0 K/uL 0.5 Eosinophils Absolute Latest Ref Range: 0.0 - 0.7 K/uL 0.1 Basophil Absolute Latest Ref Range: 0.0 - 0.2 K/uL 0.0 Immature Granulocyte Absolute Latest Ref Range: 0.00 - 0.06 K/uL 0.02 Neutrophils Percent Latest Units: % 83.2 Neutrophils Abs. (Segs and Bands) Latest Units: /uL 5,000 Lymphocytes Percent Latest Units: % 6.4 Monocytes Percent Latest Units: % 9.1 Immature Granulocyte Percent Latest Units: % 0.3 Eosinophils Percent Latest Units: % 0.8 Basophil Percent Latest Units: % 0.2 Nucleated RBC Latest Units: /100 WBC's 0 Glucose Latest Ref Range: 70 - 100 mg/dL 203 (H) Sodium Latest Ref Range: 135 - 145 meq/L 133 (L) Potassium Latest Ref Range: 3.5 - 5.3 meq/L 3.0 (L) Chloride Latest Ref Range: 99 - 110 meq/L 100 CO2 Latest Ref Range: 20 - 29 meq/L 27 Anion Gap with K Latest Ref Range: 6 - 20 meq/L 9 BUN Latest Ref Range: 6 - 22 mg/dL 8 Creatinine Latest Ref Range: 0.60 - 1.10 mg/dL 0.64 BUN/Creatinine Ratio Latest Ref Range: 10.0 - 25.0 12.5 Calcium Latest Ref Range: 8.5 - 10.5 mg/dL 7.3 (L) Corrected Calcium Latest Ref Range: 8.5 - 10.5 mg/dL 8.7 Phosphorus Latest Ref Range: 2.5 - 4.5 mg/dL 2.2 (L) Magnesium Latest Ref Range: 1.8 - 2.4 mg/dL 2.0 Albumin Latest Ref Range: 3.5 - 5.0 g/dL 2.3 (L) eGFR Latest Ref Range: >=60 mL/min/1.73m2 >90 eGFR Non- Latest Ref Range: >=60 mL/min/1.73m2 89 Protime Latest Ref Range: 12.0 - 14.5 secs 22.7 (H) INR Latest Ref Range: 2.0 - 3.5 2.0 STANT SURVEYOR documented in this encounter H&P Notes Compa Medrano MD - 11/14/2020 3:45 PM CDTH&P Update ASA Class: ASA-3: Patient with severe systemic disease Airway Assessment Classification: II Exam Resp - CTA CV - RRR Neuro - Alert, Oriented x 3, mobility intact Sedation Plan: Moderate Sedation PART I: COMPLETED BY PHYSICIAN PRIOR TO PROCEDURE H&P Updates and Indication for Care/Procedure: I have examined the patient, reviewed the H&P and no changes to the patient's condition. Patient complains of bilateral upper extremity swelling. Pericatheter noted left subclavian and axillary veins. She has known high grade SVC stenosis/occlusion with collaterals, with indwelling left arm PICC positioned in contralateral right brachiocephalic vein. Recommend central venogram, possible angioplasty/stenting with tunneled central line placement. I have explained the known risks, benefits, goals and alternatives to the procedure or treatment and/or sedation. Patient consented to proceed. If access obtained, will remove left arm PICC. 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 Replace electrolytes. IV antibiotic. Hand surgery consultation. Wound nurse consultation. Continue RT. Hold chemotherapy. OT and PT consults. HPI / History / ROS HPI Mrs. Stafford is [id number],, female patient who had symptoms of flu, fever and chills for about 3 weeks in October of 2006. She had some abdominal pain. She was unable to eat or drink. Eventually, she went to the emergency room in [place]. X-ray did show free air in the abdomen and she was transferred to [facility] on November 24, 2006. She had a CT scan showing inflammatory changes around the hepatic flexure of the colon with evidence of perforation and pneumoperitoneum. There was a small abscess at that site. This was felt to be caused by diverticulitis. There was sigmoid diverticulosis but no inflammatory changes at the level of the sigmoid colon. No bowel obstruction. The rest of the examination was unremarkable. She was treated with antibiotics for a few days. On November 28, 2006, there was no improvement and Dr. Padron took her to the OR. On opening the abdomen, he found a large amount of purulent material in the right upper quadrant. There was a large inflammatory mass in the hepatic flexure. This was surgicallyremoved. In view of the extent of the inflammation and infection, terminal ileostomy was performed. The patient had a right hemicolectomy and omentectomy. The pathology showed an adenocarcinoma. This was located at the hepatic flexure. It was perforated. The pathology was a moderately differentiated invasive adenocarcinoma extending to the radial margin with perforation. There was vascular invasion present. Proximal and distal margins were free of tumor. Tumor size was 4 x 7 cm. Two lymph nodes were found in the specimen. Both lymph nodes were benign. The pathology staging was T4b N0 MX. The patient recovered initially from her surgery but eventually developed wound dehiscence and had to be taken back to the OR on December 07, 2006. The abdomen was again irrigated with several liters of saline. Retention sutures were placed. The patient healed up very slowly from the wound dehiscence. She was transferred to [facility]. This occurred on December 17, 2006. She eventually had to go to [facility] for awhile to treat her infection. She was then transferred to the swing bed in [place]. On January 31, 2007, she had deep vein thrombosis of the left lower extremity. She has been on anticoagulation since with good improvement. She apparently had been back in the [facility] for a few days for a pinched nerve as well. She is still a patient in the swing bed in [place]. She comes in to discuss the need for adjuvant treatment for her cancer. She is doing better now. The abdominal wound is still not healed up. feels that she was ready to start chemotherapy end of February 2007.Unfortunately,after the day I saw her (03/20/07) she became septic and was readmitted to the hospital in [place].She recovered.The wound is now almost completely healed.When seen on 05/13/07 she still has a small opening in the wound. She had a CT scan on 03/26/07 which did not show recurrent cancer.there is a 2 cm nodule in the Lt.adrenal gland,most likely a benign adenoma which will need to be rechecked. She had a port placed on 05/12/07 in the Rt.upper chest.It is a bit sore. She received the 1st cycle of chemo with XELOX on 05/13/07.She tolerated it fairly well.The second cycle was started on 06/03/07. The 3rd cycle was started on 07/01/07. The 4th cycle was on 07/21/07. The 5th cycle was on 08/11/07. The 6th cycle was on 09/01/07. The 7th cycle was on 09/22/07. She ahd a pneumonia the last week of September,delaying her treatment. The main side effect from the chemo is severe fatigue which lasts about 1-2 days.She also has chapped hands. The 8th cycle was on 10/30/07.This was the last planned cycle of chemo. She had the colostomy taken down and colon reanastomosis on January 01, 2008.Unfortunately,this was complicated by wound dehiscence and MRSA infection of the abd.wound.She still has a large opening being treated with packing and topical antiseptic.It is improving. She had an elevated CEA on 03/24/08.Although she is a smoker,the CEA elevation is higher than what one would expect from smoking.It was repeated on 03/30/08 and found to be 87.7 ng/mL. On 04/16/08 she had a PET scan showin. Definite metastatic focus corresponding to a 2 cm soft tissue nodule which lies inferior to the inferior tip of the right lobe of liver. Her initial neoplasm was in the region of the hepatic flexure. 2. Less definitive finding level of mid transverse colon. It may be worthwhile to evaluate with colonoscopy. This could be inflammatory. 3. No other focus of clearly abnormal FDG activity. Postsurgical changes anterior abdominal wall. I did ask to see her.He did repeat a colonoscopy on 05/26/08.No new lesions found in the colon.She was taken to the OR on 06/03/08.The op report reads: PREOPERATIVE DIAGNOSIS: Recurrent colon cancer. POSTOPERATIVE DIAGNOSIS: Recurrent colon cancer. PROCEDURE: 1. Exploratory laparotomy. 2. Lysis of adhesions. 3. Partial hepatic resection. 4. Retroperitoneal tumor resection. 5. Ventral hernia repair. 6. Intraoperative ultrasound. The pathology of the specimen showed: 1. OMENTAL NODULE 2. SMALL BOWEL NODULE 3. RIGHT UPPER QUADRANT NODULE AND LIVER 4. SCAR EXCISION CLINICAL HISTORY RECURRENT COLON CANCER. FINAL DIAGNOSIS: Nodule, omentum, biopsy (specimen #1): - organizing fat necrosis, benign. Nodule, small bowel, biopsy (specimen #2): - organizing fat necrosis, benign. Right upper quadrant nodule and liver, resection (specimen #3): - metastatic adenocarcinoma morphologically and immunophenotypically consistent with prior adenocarcinoma involving colon (see comment). - tumor focally involves the inked black posterior margin. - tumor involves fatty soft tissue and focally abuts liver parenchyma. Scar excision (specimen #4): - skin with underlying dense collagenous scar formation. COMMENT: Specimen #3 shows adenocarcinoma involving fatty soft tissue abutting but not definitively invading the liver. Neutrophilic debris is present within some of the glands. This is tumor is compared to the patient's prior colonic resection at [facility] ([id number]). The morphologic features are identical to the prior carcinoma resected with the right colon. Immunohistochemically, the current tumor expresses CK7 with negative staining for CK20 and CDX2. Stains conducted on the prior colon resection show expression of CK7 with only focal staining for CK20 and CDX2, predominately in more mucinous areas. While a CK7 positive, CK20 negative immunophenotype is not characteristic of colonic adenocarcinoma, the current findings are entirely consistent with morphology and immunophenotype of the prior tumor. Based on location and presentation, this likely represents an unusual colonic carcinoma variant, however, other considerations might include hepatobiliary or other upper gastrointestinal origin. She again had wound dehiscence.It is slowly improving.When seen on 07/23/08 she had 2 openings in the wound.One is inthe upper aspect and is wide opened,but quite superficial.It is covered with gauze.The other is about 1 cm,deeper,in the lower aspect of the incision.It is packed with a gauze strip. On 09/03/08 she did require further drainage of abd.wall pus pockets.No other complaints. When seen on 12/03/08 she still has drainage of the wound and non-healing.Her mesh may be infected.The last culture don on 07/23/08 showed MRSA.She had seen in the past.He did not feel thatantibiotic therapy would be worth.I felt that treating her with Zyvox would make sense hoping to help wound healing.She was approved for skilled nursing treatment with Zyvox and started the medication in December2008. The wound slowly healed up. On 02/20/09 she was admitted to the hospital with N/V.The symptoms improved after a few days.She wenthome on 02/23/09. She completed her course of Zyvox in . When seen on 08/08/09 she had an ulcerqation of the abd.wound which grew MRSA.She resumed Zyvox 600 mfg PO bid in July 2009. On 10/11/09 she came in with an obstructive trhombosis of the SVC,around her catheter venous access.She had an angiogram by .He was able to open the veins again.Stents were left in.She was admitted to [facility] from10/11/09 till 10/18/1909.She has been anticoagulated since. On 10/29/09 the port pocket got ninfected with MRSA.It was cleansed in the ER.She received Doxycyclineand Diflucan.The wound healed up and closed. On 12/20/09 she came in with worsening of the facial swelling.She was admitted on Heparin and had a venogram of the Rt.UE venous system to the SVC.She needed recanalization and angioplasty of the Rt.subclavian and Rt.internal jugular veins.The facial swelling did improve and she was discharge on 12/22/09. She has done well since.No further major facial edema.She remains anticoagulated permanently. The port is functionning to infuse.Unable to draw blood from it.It has been treated with TPA withoutany improvement. When seen on 09/06/10 she was feeling well.No new complaints.She had a repeat CT scan which did not show any recurrent cancer or metastasis.The CEA remained Nl at 2.8 ng/mL. When seen on 02/01/11 she continued to feel well.She also continues to smoke.Her CEA remained good at 2.7 ng/mL.She still had a small opening in the abd,incision with minimal drainage. When seen on 08/06/11 she continued to have minimal drainage from the surgical wound.The CXR was clear.The CEA remained low.There was no evidence of recurrent cancer.She continued to smoke.The importance of smoking cessation was reminded to the Pt. When seen on 12/24/11 she still had minimal intermittent drainage from the abd wound.She had severe pain in the Rt.knee and needed a WC to move around.She should have knee replacement but cannot have itdone due to the MRSA.She had developped a Rt.leg ulcer.She continued to have the port flushed monthly.She was not able to stop smoking yet.There was no evidence of cancer recurrence.The CEA was 3.0 ng/mL. She did develop a Rt.leg ulcer.It seemed to be caused by PVD and she was followed by vascular surgery for it. She also had a skin graft for it. When seen on 06/09/12 she was feeling quite well. She continued to have a RLE ulcer and a minimal opening in the abd.incision with minimal drainage.She continued to have the port flushed every month.There was no evidence of recurrent colon cancer. When seen on 11/17/12 she still had problems with a non-healing ulcer of the Rt. Heel.She was on Cipro for it. There was no evidence of recurrent cancer. She complained about her Metformin not dissolving. No other complaints or problems. I suggested to continue close observation. She was admitted to the hospital on 05/06/13 for worsening infection of the opened wound on the Rt. Heel. She received antibiotics. Cultures were not revealing. She was discharged on 05/12/13. When seen on 05/20/13 she still had the opened sore on the Rt. Heel with quite severe pain requiring narcotics for control. (She was on Oxycontin and Percocet). There was no evidence of recurrent colon cancer. Her CEA was good at 2.1 ng/mL. She also noticed that the opening in the abdominal midline incision had closed when she received antibiotics for the heel infection. We decided to continue observation for the colon cancer and a recheck in October 2013 was recommended. She had an angiogram by Dr. Hannon on 11/19/13. This showed: IMPRESSION: 1. Single renal arteries bilaterally without significant stenosis. 2. Near occlusive stenosis right internal iliac artery and multiple branches of the left internal iliac artery. 3. Occlusion of the left superficial femoral and proximal popliteal arteries as well as both the left fem-pop bypass grafts. 4. Reconstitution of the left popliteal artery at the level of the patella. 5. 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 6. Patent left common femoral, deep femoral, superficial femoral and popliteal artery without significant stenosis with single vessel posterior tibial run-off to the left foot. 7. Follow-up appointment was made. Patient has previously had two failed fem-pop bypass grafts, however may require 3rd bypass possibly through the popliteal artery or further distally. Follow-up appointment is made. When seen on 12/09/13 she was in a wheel chair. She could not ambulate on the account of the pain in the Rt. Foot. She was able to transfer on the exam table with great difficulty. I did not find any suspicion of recurrent or metastatic cancer. Her CEA was Nl. At 2.7 ng/mL. It was decided to continue close observation for the colon cancer. She was given a return apt in May 2014 with lab work.Port flush monthly. When seen on 06/02/2014 Ms. Stafford complains of occasional chills, but feels good otherwise. Hemoglobin is a bit low at 9.6. Pt presents with an infection in the right foot that has not healed. She had definite iron deficiency anemia. I felt that she should be worked up for possible GI bleeding. Dariela ordered. She needed EGD and colonoscopy. When seen on 10/06/2014 she continued to complain of the ulcer on the right foot. She was seen in Podiatry in [place] on 10/05/2014 for this issue and was prescribed a Josh cream to use. There was no evidence of recurrent colon cancer and she was scheduled for a revisit in 6 months with labs. She continued to have her port flushed monthly. When seen on 03/23/2015 she requested to have her iron levels checked due to her cold intolerance and fatigue. She continued to use a Josh cream for her ulcer on the right foot was seen by her drapery examiner every 2 months. She also continued to smoke tobacco cigarettes and did not plan to quit at this time. Due to crackles in the lung bases upon ascultation, a chest xray was ordered to evaluate for possible pneumonia. She did not have the time to do the CXR and planned to have it done in [place]. Her iron saturation was low at 8%. Her Ferritin was low normal at 25 ng/mL. The retic Hgb was normal at 31.6 pg. Her iron stores were felt to be low normal. She was recommended to continue to take Ferrous sulfate 325 mg daily. It was decided to continue observation and see her back for a RV in 6 months with labs. She continued to have her port flushed monthly. Mammogram in 1 month. When seen on 09/21/2015 the infection on the medial aspect level of her right foot was healing, no drainage. She reported being in the hospital in [place] X 1 month for an infection of her right foot. Her calcium was 8.2 and albumin was 3.0. Lab work was otherwise good. Her CEA tumor marker was 2.8 ng/mL. She continued to have her port flushed monthly. It was decided to continue observation and see her back for a RV in 6 months with labs. She planned to wait until this spring/summer to do the mammogram. 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 She was started on Levaquin and immipenum was added and this helped the wound heal nicely. She was discharged to a swing bed. On 04/06/2016 Blair Stafford was seen for follow-up for colon cancer. She complained of a dry cough, occasional diarrhea, and of cold intolerance. In view of her cough, it was decided to order a chest xray to be done at the time of her next port flush. Her glucose was 188 mg/dL, creatinine was 1.12 mg/dL, iron total was 81 mg/dL, iron saturation was 18%, eGFR was 47, and CEA tumor marker was 2.6 ng/mL. It was decided to continue monthly port flushes and she was scheduled for a RV in 6 months with labs. On 09/28/2016 Blair Stafford was seen for follow-up for colon cancer. She was accompanied by her daughter. She complained of right heel pain due to an ulcer she was following with podiatry, diarrhea X 2 days that had since resolved, cold intolerance, hearing loss, RLE edema, urinary urgency, numbness and tingling in the right hand, and of a few lipomas. In view of her cold intolerance, it was decided to order a TSH for today. She continued to smoke 1 ppd of cigarettes and was further encouraged toquit. In view of this, a CT chest was ordered to be done now in [place]. Her CEA tumor marker was 2.8ng/mL. Lab work from 09/20/2016 showed a creatinine of 1.18 mg/dL, eGFR of 44, calcium of 8.4 mg/dL,alkaline phosphatase was 122 U/L, and albumin was 2.9 g/dL.It was decided to continue observation.She would also need to continue monthly port flushes. She was scheduled for a RV in 6 months with labs and a port flush. On 04/08/2017 Blair Stafford was seen for follow-up for colon cancer. She complained of a painful infected ulcer in the right foot, RLE edema due to her ulcer, mild productive cough with clear phlegm, numbness and tingling in the right hand, and of cold intolerance. She continued to smoke 1 ppd of cigarettes and wanted help quitting, and she was prescribed Nicotine 21 mg patch daily. She was following with Podiatry in [place] for her foot ulcer. Her WBC count was 11,800, ANC was 8,900, and eGFR was54. In view of her prior colon cancer, it was decided to continue to observe. She would continue with a port flush every 4-6 weeks. She was scheduled for a RV in 6 months with labs. Her CEA was in process. Her CT chest on 04/08/2017 was in process. On 08/03/2017, Blair was admitted to the hospital for chills and dyspnea after flushing port. At presentation to OSH , she had an elevated WBC, lactic acidosis and elevated troponin with no STT changes, Acute kidney injurywith LA, WBC normalizing at presentation here. Blood culture from outside hospital revealed Klebsiella pneumoniae and she was started on antibiotic therapy . 08/03/2017 CXR EXAM: CHEST: Two views compared to 09/03/2016. A tunneled internal jugular Port-A-Cath on the right side continues to terminate within proximal superior vena cava. Thoracic aorta is tortuous. Stable borderline cardiomegaly. No pneumothorax or pneumomediastinum. No pleural effusion on either side. Asymmetric pleural thickening in left lung apex, stable. Lungs are under expanded. No focal consolidation. Minimal interstitial thickening within peripheral left lung base is confirmed on CT scan dated 04/08/2017 and please refer to that study. There is no pulmonary edema. 08/04/2017 US [facility] IMPRESSION: No cystic or sold mass arising from either kidney. No obstruction of either kidney. On 08/05/2017, Blair had her subcutaneous port removed. On 08/07/2017, Blair was discharged from the hospital in stable condition. On 09/30/17, Blair was seen for follow-up for colon cancer. She presented with her daughter. Her lab results were reviewed. Her creatinine was at 1.11. Her mood was ok. She complained of having chills, loss of 12 lbs in last month, low energy level, watering of eyes, decrease in hearing, cough - occasional phlegm, runny nose, sore L shoulder, diarrhea, tingling in R hand, ecchymosis on forearms, and cold intolerance. She continues to smoke 1 ppd - she was further encouraged to quit. Blair statedshe'll try and quit when she turns 79. Continue to observe. RV 6 months with labs and CT scan. When seen on 04/03/2018 for her Colon cancer Follow up,she was feeling well and accompanied by her daughter.Her labs results were stabled.Her labs were reviewed with her as well as her CT Chest done. Her CT chest done on 04/03/2018 indicated: IMPRESSION: 1. Enlarging ovoid well-circumscribed left anterior mediastinal soft tissue nodule abutting the pericardium currently measures 23 x 16 x 14 mm. This measured 19 x 12 x 14 mm on 10/22/2016 and 19 x 13 x 14 mm on 04/08/2017. 2. Enlarging 10 mm right upper lobe pulmonary nodule abutting the pleura is increased in size from04/08/2017 when it measured 8 mm. 3. Chronic interstitial lung disease, basilar distribution. Given the history of colonic neoplasm findings are concerning for metastases. She had complaints of decreased vision,mild hearing loss,coughs with clear phlegm and diarrhea.Continue to observe. RV 6 months with labs and CT scan of Chest due to her cough. She had a CT scan of the chest on 11/04/18 showing: IMPRESSION: 1. Stable nodule in the anterior mediastinum 2. Moderately severe interstitial changes involving the lower lobes 3. Stable 10 mm nodule in the periphery of the right upper lobe 4. No new abnormality On 11/04/2018 Mrs. Stafford was seen for a follow up for her malignant neoplasm of the colon. She wasaccompanied by her daughter. She presents with hearing loss, diarrhea, nocturia (occ), hot intolerance, and numbness and tingling of the hands and feet. Labs on 10/01/2018 normal. X-ray on 06/07/2018 revealed a stable nodule that is likely benign. Will continue to monitor nodules. Mrs. Stafford complains of pain in her right foot and says it has broken open again. She is overall doing well. RV in 6 months with labs and CT. On 06/18/19 Mrs. Stafford was seen for a follow up for her malignant neoplasm of the colon. She was accompanied by her daughter. Increase in dairy intake is recommended due to low calcium. She continues to smoke. She was recently seen by an outside provider that prescribed her Levaquin for her cough. She presents with fatigue, cold intolerance, intentional weight loss, hearing loss, cough, numbness in tingling in hands and feet, and multiple lipomas on arms. Multiple lipomas, hyperkyphosis of lumbarspine, rhonchi to ausculation bilaterally, ventral hernia at site of prior ileostomy and one at primary colon surgery incision, diabetic ulcer of right ankle (dressed, not examined), and absent deep tendon reflexes noted upon physical examination. Labs on 06/16/19 indicated platelet count 136, [id number], chloride 109, BUN 12, calcium 7.4, Albumin 2.4, protime 24 and immature retic fraction 1.8. CT chest on 06/18/19 results showed: IMPRESSION: 1. Enlarging pleural-based nodule of the right upper lobe currently measuring up to 1.4 cm, previously 1.2 cm. Findings concerning for neoplasm. Recommend further evaluation with PET/CT and/or percutaneous sampling. 2. Grossly stable well-circumscribed anterior mediastinal nodule. PET scan now. RV after. She had the PET scan on 06/25/19 showing: IMPRESSION: Redemonstrated pleural-based right upper lobe nodule measuring up to 1.4 cm. There is no significantFDG uptake. Continued follow-up is suggested. Again seen 2.3 x 1.8 cm anterior mediastinal soft tissue nodule which demonstrates minimal FDG uptake with max SUV of 2.2. This lesion continues to slowly increase in size and is therefore indeterminate. On the previous PET/CT dated 10/2016 this nodule measured up to 1.7 x 1.4 cm. Diffuse FDG uptake surrounding both shoulders and the left greater trochanter, similar in appearanceto prior PET/CT. Bilateral shoulder uptake may be seen in osteoarthritis. Correlation for left trochanteric bursitis is suggested. No abnormal FDG uptake is seen within the abdomen and pelvis. There is persistent diastases of the anterior abdominal wall with herniation of mesentery, small bowel, and large bowel contents through the defect. Unchanged diffuse peripherally based pulmonary reticulation suggestive of fibrosis. Since the PET scan was basically negative for cancer,I did give her a return apt in 3 months with labs and CT chest. She had the CT chest on 10/02/19 showing: IMPRESSION: 1. Slowly enlarging anterior mediastinal nodule that is negative on PET scan. In reviewing the previous CTs and PET scans this was visible on the PET scan of 04/16/[address]. This measured approximately 5 mm on 04/16/2008 and now measures 2.4 x 2 cm. 2. Slowly enlarging right upper lobe nodule. This was visible in 2010 measuring approximately 5 mmand now measures 1.6 cm in greatest dimension this is PET negative. 3. I think the first concern would be that this is metastatic disease that is PET negative evidence of growing very slowly over the last 10-12 years. This can be PET negative particularly if there are mucinous components to the tumor. If there would be consideration of treating this patient if this were metastatic disease, tissue sampling is recommended. There is reticular prominence in the subpleural regions particularly on the left. This likely represents some interstitial lung disease. 4. Scattered small mediastinal lymph nodes that appear stable. On 10/02/19 Mrs Stafford was seen for re-evaluation of her colon cancer. She was accompanied by her daughter.She came in a wheel chair. She had a boot on the Rt foot. She complained of an ulcer in the medial Rt heel that was not healing. I suggested that she made an apt with her drapery examiner,Dr Werner.She said that she would do that. She also complained of wheezing.She had chronic diarrhea. She had numbness of the Rt hand. She had cold intolerance. Since it was very difficult to transfer her to the exam table,I examined her in the WC. She remained OW. The Rt foot was in a boot and not examined. Shehad rhonchi on lung auscultation. Her lab work showed an unremarkable CBC. Glucose 69 mg/dL;calcium 8.3 mg/dL;Albumin 2.8 g/dL CEA 2.9 ng/mL. I did review her CT chest with her. There could be lung metastasis,but growing very slowly. I felt that the best would be to repeat a PET scan in December 2019. Thiswas ordered with repeat lab work. The Pt did not want to work on quitting her smoking. On 12/28/19 PET scan results showed: IMPRESSION: 1. The left anterior mediastinal soft tissue nodule now shows FDG activity greater than backgroundlevels. Tissue diagnosis would be a reasonable consideration, as this likely represents a slowly growing metastasis 2. The pleural-based lesion anterolateral upper right hemithorax also shows increased FDG activityand is suspicious 3. There are small retroperitoneal lymph nodes, which are more prominent than on the previous studies. Continued surveillance of these is recommended. None show FDG activity above background levels. On12/28/19 was seen for re-evaluation of her colon cancer. Overall she was feeling well and appeared to be in a good mood.She continues to smoke cigarettes daily 1 ppd. She would like to try Chantix to help her stop smoking.She presented in a wheelchair.She had a boot on the Rt foot. She complained of an ulcer in the medial Rt heel that was not healing.She has complaints of pain of her hernia. 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 She also has complaints of productive cough with clear phlegm, diarrhea after eating, occasional nocturia and tingling in rt hand. Multiple lipomas in the forearms and large ventral hernia rt side noted upon physical examination.Labson 12/28/19 indicatedpotassium 3.3 meq/L, protime 41.4 secs and INR 4.2. The PET scan on 12/28/19 indicated the left anterior mediastinal soft tissue nodule now shows FDG activity greater than background levelsand the pleural-based lesion anterolateralupper right hemithorax also shows increased FDG activity and is suspicious. A biopsy is recommended,but it is uncertain if this can be performed due to it's close proximity to the aorta. Start Chantixas directed. RV in 6 months with labs and CT chest without contrast. Dr Bedolla was contacted and felt that he could do the biopsy of the anterior mediastinal mass. Thiswas performed on 01/07/20. The pathology reads: FINAL DIAGNOSIS A. MEDIASTINUM, ANTERIOR MASS, NEEDLE CORE BIOPSY: - Thymoma, see comment. at 1251 Preliminary result electronically signed by Wilmer Wells MD on 01/11/2020 at 1024 DIAGNOSIS COMMENT Case was signed out in consultation with [facility] laboratories. Please see [facility] Pathology Consult below: Received: 12 Jan 2020 09:16 Reported: 12 Jan 2020 12:22 Interpretation FINAL DIAGNOSIS Mediastinum, anterior mass, needle biopsy ([id number]; 01/07/2020): Thymoma (see comment). COMMENT: Thank you very much for sharing the needle biopsy of Blair Stafford, 79-year-old woman who according to the submitted clinical noteshas a history of colonic adenocarcinoma and now has an enlarging anterior mediastinal nodule, clinically suspected to be metastaticcarcinoma. I am sorry I was unable to reach you. I had the pleasure of reviewing this case because of my interest in thoracic pathology and Icompletely agree with your assessment. The needle biopsy show small nodules of bland slightly spindled cells with indistinct cell borders and mild amount of cytoplasm. The nucleido not show any atypia. Mitoses are not identified. These nodules are embedded in a lymphoid stroma. Your immunohistochemical studyperformed paraffin-embedded tissue show the nodules of bland cells to be keratin positive and the lymphoid stroma to be comprisedofimmature T-cells with positivity for CD5 and TdT. As you, based on these features, I would favora diagnosis of thymoma. I agree that thispattern is consistent with a micronodular thymoma with lymphoid stroma. On a small needle biopsy we typically do not subtype thymomaas there can be more than one pattern and therefore final subtyping is typically reserved for a resected specimen if it were to becomeavailable. Thank you for sharing this interesting case. If you have any questions, please do not hesitate to contact me at [phone]. I did share this with Dr Debbie Javier and she felt that surgery in this Pt would be extremely risky. Shefavored observation. It is growing very slowly and not causing any symptoms. I'll also get a radiation opinion. On 02/10/20 Mrs Stafford was seen for re-evaluation of her Thymoma. She was accompanied by her daughter. I gave them the diagnosis from the biopsy and the recommendation of Dr Javier. She remained asymptomatic from the thymoma and was not interested in having it surgically removed. Her daughter also was not in favor of surgery. She had a chronic cough related to her smoking. She had pain in the Rt foot. On exam,her foot was dressed. She had rhonchi. She agreed to try to stop smoking. She had a prescription for Chantix that I sent on 12/28/19. She said she might try it. She did not seem very interestedin quitting this habit. I suggested that she keeps her apt in June with a repeat CT scan of the chest and lab work. On 07/18/20 CT Chest without contrast results showed: IMPRESSION: 1. Continued slow growth of spiculated nodule at the pleural-based right upper lobe worrisome for neoplasia. Consider soft tissue sampling. 2. Biopsy proven thymoma at the anterior mediastinum is stable in size. 3. Subacute to chronic fractures of left lateral ribs 9 and 10, not seen on the September 2019 exam. On 07/18/20Mrs Rivera was seen for re-evaluation of her Thymoma.Overall she was feeling well and appeared in a good mood. She presented in a wheelchair for assistance. She came accompanied by celio. The patient reports that she continues to smoke cigarettes daily (1 pack/d). CT chest results were reviewed with the patient and her daughter, questions and concerns were addressed and understood. CT chest results reaveled aslow growth of spiculated nodule at the pleural-based right upper lobe worrisome for neoplasia. She has complaints of hearing loss, Rt foot pain, weight loss (22 Ibs) since last visit, diarrhea, productive cough mainly when she is lying down, occ wheezes, Rt side pain(starting a week ago), itching, and neuropathy in the Rt hand.Rhonchi to auscultation bilaterally, decreased air exchange,ventral hernia, multiple scars due to multiple surgeries, and deep tendonreflexes areabsent, noted on the physical exam. Labs on 07/18/20 indicate MPV 12.5 fL, Potassium 3.2 meq/L, Albumin 3.1 g/dL, and CEA 6.7 ng/mL were abnormal. Blood counts and chemistries otherwise look normal.PET scan. May need a biopsy/ Await PET result.Her rising CEA is also concerning.If PET is neg repeat CT in 3 months. The PET scan was done on 07/27/20 and showed: IMPRESSION: 1. Enlarging 18 mm subpleural right upper lobe pulmonary nodule with increased hypermetabolism compared to 12/28/2019 PET scan highly suspicious for metastasis versus primary pulmonary malignancy. Recommend CT-guided biopsy for further characterization. 2. FDG avid biopsy-proven left anterior mediastinal thymoma. 3. New focal FDG activity and soft tissue prominence in the region of the pancreatic head and secondportion of the duodenum. Intra and extrahepatic biliary ductal dilation. Recommend pancreatic protocol CT or MRI for improved characterization/exclusion of neoplasm. 4. Decreased FDG activity associated with right inguinal lymph node since 12/28/2019 favoring a reactive etiology. 5. Increased periarticular uptake about the right FAITH. Correlation with any recent intervention and/or pain is recommended. 6. Healing fractures left anterior ribs 9 and 10. On 08/06/20 she had the abdominal MRI scan showing: IMPRESSION: 1. MRI confirms a heterogeneous hypoenhancing 2.4 x 2.4 cm pancreatic head (uncinate process) mass which corresponds to the FDG avid lesion on the recent PET/CT. Findings are consistent with malignancylikely pancreatic adenocarcinoma. 2. There is pancreatic ductal dilation as well as intrahepatic and extrahepatic ductal dilation including significant dilation of the pancreatic duct. Findings are consistent with the obstructive change of the pancreatic head lesion. 3. There are few mildly prominent right upper quadrant/periportal lymph nodes measuring upwards of 8mm in short axis. 4. There does not appear to be any vascular involvement of this pancreatic head lesion. On 08/12/20 Mrs Stafford was seen to review her PET scan and MRI scan. She was accompanied by her daughter. I showed them the 2 lesions of concern. I re- emphasized that the only way to know what we aredealing with is to perform a biopsy. The Rt upper lobe lesion can be biopsied with a CT guided needle procedure. She agreed to have it done and there referral was made to IR. The pancreatic lesion would be difficult to biopsy by CT guided procedure. Dr Pedersen did review the scan and felt that the best approach would be through an EUS. The Pt agreed to have this done and it was scheduled. I told her that I would see her after the tests are back. She was reminded to stop the Coumadin about 4 days before each procedure. On 08/29/20 Tissue exam results showed: FINAL DIAGNOSIS Right upper lobe lung nodule, core biopsies: - Invasive adenocarcinoma; see comment. On 08/29/20 IR Biopsy results showed: IMPRESSION: 1. Technically successful CT guided percutaneous biopsy of right upper lobe lung nodule. Please see the final pathology result. 2. Small post biopsy right pneumothorax, which resolved after percutaneous aspiration, without evidence of continued enlargement. Follow-up x-ray will be obtained. On 09/05/20 Cytology-fine needle aspiration results showed: FINAL DIAGNOSIS A. PANCREAS, PANCREATIC HEAD MASS, FNA WITH ONSITE: - Satisfactory for evaluation. - Positive for malignancy. - Carcinoma, consistent with pancreatic origin. On 09/13/20 Mrs Stafford was seen to review her biopsy results. Overall she was feeling well and appeared in a good mood. She came accompanied by her daughter. She used a wheelchair for assistance. Cytology and tissue exam results were reviewed with the patient and her daughter, questions and concernswere addressed and understood. Biopsy results showed positive for malignancy, carcinoma consistent with pancreatic origin. Tissue exam results showed invasive adenocarcinoma of her Rt upper lung. Treatments were discussed with the patient and her daughter. No ROS during this visit. No physical exam during this visit.No current labs at this time. Labs now. My recommendation for the lung cancer is SBRT. In view of the small size of the tumor and its peripheral location,EBUS is not indicated. For the pancreas,pending what Dr Jones has to offer,I think the best would be palliation with chemo/radiation. I do not think she could tolerate another major abdominal surgery. On 09/21/20 Mrs Stafford presented to the infusion center for IV orders. Potassium is low at 2.8 today, has been chronically low.She was recommend Potassium 40 meq IV today. Magnesium level labs to be drawn, due to chronically low potassium and low phosphorus level. Also recommendPotassium 40 meq oral today and daily. On 10/04/20 Mrs Stafford was seen for a re-evaluation of her lung cancer and cancer of the pancreas.Overall she was feeling well and appeared in a good mood. She came accompanied by her daughter. She used a wheelchair for assistance. She has complaints of cold intolerance, productive cough (yellow, clear), diarrhea, and lower back pain, otherwise no other complaints to note on the ROS. Exam was donein the patient's wheelchair. Wound on the Rt leg is dressed, otherwise the physical exam looks unremarkable. Labs on 10/04/20 indicate Glucose 136 mg/dL, Potassium 2.9 meq/L, Albumin 3.0 g/dL, and Protime 23.7 secs were abnormal. Chemistries otherwise look normal. Continue taking potassium supplementsdaily. Start Capecitabine 500 mg PO bid with RT. Continue Capecitabine every day, including week-ends. Weekly apt with lab work. On 10/11/20 Mrs Stafford was seen for re-evaluation of her multiple cancers. She was accompanied by her daughter. She continued to tolerate her treatment well. She had diarrhea. No N/V. No pain. Her exam was unchanged. She was in her WC. Her lab work showed an unremarkable CBC. Glucose was 175 mg/dL; Phosphorus 2.4 mg/dL; albumin 2.8 g/dL; INR 5.2. She was instructed not to take Coumadin till told to resume it. The Coumadin clinic was monitoring her. She was continued on Capecitabine 500 mg bid as a radiosensitizer for the pancreatic cancer. She will continue to receive daily RT. I gave her a returnapt in 1 week with repeat lab work. On 10/18/20 Mrs Stafford was seen for re-evaluation of her multiple cancers. She was accompanied by her grand daughter. Overall she was not feeling well and appeared in a good mood. She has complaints of diarrhea, her Rt second finger nail is gone and the finger is swollen and red. Heart and lungs were checked and appeared normal. It was recommended for the patient to be admitted to the hospital. Thepatient understood and agreed to this. Labs on 10/17/20 indicate Platelet Count 117 K/uL MPV 12.2 fL, Lymphocytes Absolute 0.4 K/uL, Glucose 172 mg/dL, Calcium 8.0 mg/dL, Phosphorus 1.7 mg/dL, Magnesium 1.6 mg/dL, Bilirubin 1.5 mg/dL, Albumin 2.7 g/dL, Protime 20.0 secs, and INR 1.7 were abnormal. Blood counts and chemistries otherwise look normal. Admit to the hospital. Oncology Hx 1. 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 2. Wound dehiscence on 12/07/06. 3. Progressive elevation of the creatinine. 4. DVT Lt.leg.(01/21/07). 5. Lt.adrenal nodule,2 cm,seen on CT scan of 03/26/07.Most likely an adenoma.Needs to be rechecked. 6. Gram + ?staph in midline abdominal incision-culture pending-improved, almost healed. 7. Abscess around the stoma site-healing MRSA + 8. Swelling in the left lower extremity. 9. Hand sores related to Xeloda.(Resolved). 10.Probable problems with her granulocytes in view of the persistent MRSA infection.(May be familial. Her twin sister has similar problems). 11.Recurrent MRSA of the abd.wound on 08/08/09.Took Zyvox from November 2008 till .Resume Zyvox in July 2009.Took it for a month than quit. 12.DVT of the SVC,Lt.brachiocephalic veins.(10/11/09). 13.Recurrent MRSA infections. 14.RUQ tenderness.Cause?(02/28/10). 15.Rt.leg ulcer.(12/24/11). Severe PVD. 16. Stage IA1 (P5kW0N7) adenocarcinoma of the RUL of the lung, diagnosed on 08/29/20. 17. Stage IB (T2N0M0) adenocarcinoma of th uncinate process of the pancreas,diagnosed on 09/05/20. Treated with RT and Capecitabine as a radiosensitizer. 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) Malignant neoplasm of colon (HCC) Encounter for antineoplastic chemotherapy [facility] current use of anticoagulant therapy Other staphylococcus infection in conditions classified elsewhere and of unspecified site Encounter for long-term (current) use of other medications Infection with drug-resistant microorganisms IVC thrombosis (HCC) Heterozygous factor V Leiden mutation (HCC) SVC (superior vena cava obstruction) Deep vein thrombosis of left lower extremity (HCC) Thrombosis of subclavian artery (HCC) Ankle joint pain Diabetic ulcer of heel (HCC) Encounter for long-term (current) use of antibiotics Peripheral vascular disease (HCC) Ischemic heel ulcer (HCC) Tobacco abuse Encounter for central line care Iron deficiency Anemia Fatigue Elevated factor VIII level Cough Sepsis (HCC) CE (acute kidney injury) (HCC) Diarrhea, unspecified NSTEMI (non-ST elevated myocardial infarction) (HCC) Acute kidney injury (HCC) Coughing Thymoma Lung nodule Pancreatic mass Malignant neoplasm of upper lobe of right lung (HCC) Pancreatic cancer (HCC) Hypokalemia Malignant neoplasm of head of pancreas (HCC) Adenocarcinoma, lung, right (HCC) Hypomagnesemia Dehydration Open wound Colon cancer (HCC) Weakness 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) Finger infection Hypophosphatemia Medications Prior to Admission Medication Sig Dispense Refill Last Dose cephalexin (KEFLEX) 500 mg capsule Take 500 mg by mouth 3 times a day Unknown at Unknown time potassium chloride (KLOR-CON M20) 20 MEQ CR tablet Take 1 tablet (20 mEq) by mouth 2 times a day90 tablet 3 10/18/2020 at am diphenoxylate-atropine (LOMOTIL) 2.5-0.025 mg tablet Take 1 tablet by mouth 4 times a day as needed for diarrhea 40 tablet 0 Unknown at Unknown time ondansetron (ZOFRAN) 8 MG tablet Take 1 tablet (8mg) by mouth, one hour prior to radiotherapy. 30 tablet 1 10/18/2020 at Unknown time capecitabine (XELODA) 500 MG tablet Take 1 tablet (500 mg) by mouth 2 times a day 14 tablet 5 10/18/2020 at Unknown time nicotine (NICODERM) 21 mg/24hr PT24 Apply 1 patch (21 mg) to the skin 1 time per day 42 patch 0 Unknown at Unknown time wfsebe-nniihueq-jqaegmg (CREON 12,000) 12-38-60 KU capsule Take 1 capsule by mouth 3 times a daywith meals 90 capsule 11 Unknown at Unknown time warfarin (COUMADIN) 2.[address] [facility] Anticoagulation Pt:Take as directed. (Insurance Purposes: 2.5-3.75 mg daily dose range) Call [phone] if questions. 30 tablet 0 Past Week at Unknown time glipiZIDE ER (GLUCOTROL XL) 5 mg extended release tablet (24 hr) Take 1 tablet by mouth 1 time per day 10/17/2020 at pm acetaminophen (TYLENOL) 500 mg tablet Take 500 mg by mouth Every 4 hours as needed 10/17/2020 at Unknown time loperamide (IMODIUM) 2 mg capsule Take 2 caps after the first loose stool, then 1 cap after eachloose stool, but no more than 8 caps per day. 20 capsule 0 10/17/2020 at Unknown time warfarin (COUMADIN) [address] [facility] Anticoagulation Pt:Take as directed. (Insurance Purposes: 2.5-5 mg daily dose range) Call [phone] if ? 80 tablet 3 Past Week at Unknown time gabapentin (NEURONTIN) 300 mg capsule Take 600 mg by mouth TAKES 1-3 times per day 270 capsule at pm phytonadione, vitamin K, 100 MCG TABS tablet Take 200 mcg by mouth 1 time per day while on warfarin to stabilize labile INRs and dietary vitamin K consumption. 100 tablet 3 Past Week at Unknown time triamcinolone acetonide (KENALOG,ARISTOCORT) 0.1 % cream Apply topically 2 times a day 28.5 g 1 Misc. Devices (WALKER) MISC WALKER WITH 4 WHEELS WITH HAND BRAKES (NO SEAT) Use as needed when ambulating. Dx: Right hip arthroplasty and prosthesis, weakness and unsteady gait Allergies Allergen Reactions Penicillin Hives (High) Adhesives Rash Mepilex Border dressing Bactericin [Bacitracin] Unknown/Not Verified Cortisporin [Zndvjinl-Zzdnkjhct-Ht] Rash Hydrocortisone [Cortizone] Unknown/Not Verified Levofloxacin Itching and Rash Lincocin Unknown/Not Verified Medihoney Ca Alginate 2"X2" [Alginate - Carboxymethylcellulose - Silver] Unknown/Not Verified Patient unable to give me symptoms Monistat [Tioconazole] Unknown/Not Verified Septra [Sulfamethoxazole W-Trimethoprim] Unknown/Not Verified Silvadene [Silver Sulfadiazine] Other (Specify in Comments) Blister with silvadene cream, anything with silver (aquacel wound products) Silver Picrate Rash Silver products Soap Itching Hospital soap and lotions, uses dove. Sodium Acetate Unknown/Not Verified Sulfa Drugs Unknown/Not Verified Sulfamethoxazole W-Trimethoprim Rash Tpn Electrolytes Ii [Lypholyte] Unknown/Not Verified Xeroform [Bismuth Tribromoph-Petrolatum] Unknown/Not Verified Patient not able to give me symptoms Past Medical History: Diagnosis Date CE (acute kidney injury) (HCC) Allergy Anemia Cataract Clotting disorder (HCC) Deep vein thrombosis of left lower extremity (HCC) 02/18/2012 DM w/o Complication Type II Elevated factor VIII level Essential hypertension, benign Factor 5 Leiden mutation, heterozygous (HCC) history of per pt. Fatigue Finger infection 10/18/2020 Hx antineoplastic chemo Hypophosphatemia 10/18/2020 Iron deficiency Ischemic heel ulcer (HCC) 11/11/2013 IVC thrombosis (HCC) Lung nodule 08/20/2020 Malignant neoplasm of colon, unspecified site 11/28/2006 Malignant neoplasm of upper lobe of right lung (HCC) 09/01/2020 MRSA (methicillin resistant staph aureus) culture positive 07/2009 abd wound, 12/2015 foot Myocardial infarction (HCC) NSTEMI- pt denies 01/05/2020 Pancreatic mass 08/20/2020 Peripheral vascular disease (HCC) 11/11/2013 PVD (peripheral vascular disease) (HCC) Sepsis (HCC) Staph Infection NEC 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 Thymoma 02/10/2020 Tobacco abuse 11/13/2013 Past Surgical History: Procedure Laterality Date APPENDECTOMY ARTHROPLASTY ACETABULAR PROXIMAL FEMORAL PROSTHETIC REPLACE WWO AUTOG 20120103 ARTHROSCOPY KNEE SURGICAL SYNOVECTOMY LIMITED (SEP PROC) 20120103 BYPASS GRAFT WOTHER THAN VEIN FEMORAL-POPLITEAL 20120103 CHOLECYSTECTOMY COLECTOMY PARTIAL WCOLOPROCTOSTOMY (LOW PELVIC ANASTOMOSIS) 20120103 COLECTOMY PARTIAL WRESECTION WCOLOSTMY ILEOSTMY & CREATN MUCOFISTULA 20120103 COLON SURGERY COLONOSCOPY 06/30/2014 Procedure: COLONOSCOPY;; Surgeon: Des Carvalho MD COSMETIC SURGERY ERCP N/A 09/05/2020 Procedure: ENDOSCOPIC RETROGRADE CHOLANGIOPANCREATOGRAPHY;; Surgeon: Joey Pedersen MD EXPLORATORY LAPAROTOMY EXPLORATORY CELIOTOMY WWO BX(S) (SEP PROC) 20120103 EYE SURGERY HERNIA REPAIR INSERT TUNNELED CENTRALLY INSERTED VENOUS ACCESS DEVICE WSUBQ PORT 20120103 JOINT REPLACEMENT Right hip LAPAROSCOPY SURGICAL SLING OPERATION FOR STRESS INCONTINENCE 20120103 LIGATION TRANSECTION FALLOPIAN TUBE ABD VAGINAL APPRCH UNILAT BILAT 20120103 RPR INITIAL INCISIONAL VENTRAL HERNIA REDUCIBLE 20120103 RPR INITIAL INGUINAL HERNIA AGE 5+ REDUCIBLE 20120103 TUBAL LIGATION UPP ENDO W EUS EXT N/A 09/05/2020 Procedure: UPPER ENDOSCOPY WITH ENDOSCOPIC ULTRASOUND EXTENDED;; Surgeon: Joey Pedersen MD UPPER ENDOSCOPY 06/30/2014 Procedure: UPPER ENDOSCOPY;; Surgeon: Des Carvalho MD UPPER ENDOSCOPY N/A 09/05/2020 Procedure: UPPER ENDOSCOPY;; Surgeon: Joey Pedersen MD VASCULAR BYPASS 06/24/2012 RIGHT FEMORAL POPLITEAL BYPASS REDO; DEBRIDEMENT OF RIGHT LOWER LEG ULCER; Surgeon: Efra García DO Family History Problem Relation Age of Onset Not otherwise listed - Cancer Brother Colon cancer. Stroke Father Not otherwise listed - Cancer Sister Assistant Director Of Public Works cancer. 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 09/13/2020 Substance and Sexual Activity Alcohol use: No Drug use: No Sexual activity: Never Social History Narrative Mrs. Stafford is a woman who lives in her own home in [place] with her daughter, Vanessa, in [facility]. Vanessa works in [employer] as a record label intern and is very supportive and knowledgeable about her mother's history. Son Dylan is 52; Type 1 DM and has had foot amputation. 2 granddaughters, Anne 22and Sara 19. Mrs. Stfaford has a hx of at least 1 ppd smoking, approx 50 pk yrs; did not smoke while she was in the hospital the past month but started smoking again as soon as she got home yesterday. She does not drink alcohol. Review of Systems Review of Systems Constitutional: Positive for appetite change (She lost her appetite.), fatigue and unexpected weightchange. Negative for chills, diaphoresis and fever. HENT: Positive for hearing loss. Eyes: Negative. Respiratory: Negative. Cardiovascular: Negative. Gastrointestinal: Positive for diarrhea. Negative for abdominal distention and abdominal pain. Endocrine: Negative. Genitourinary: Negative. Skin: Positive for wound. Neurological: Positive for extremity weakness. Hematological: Negative. Psychiatric/Behavioral: The patient is nervous/anxious. Physical / Results Current Vital Signs Temp: 97.7 F (36.5 C) BP: 128/69 Weight: 52.8 kg (116 lb 6.5 oz) SpO2: 96 % Resp: 18 Pulse: 102 Current BMI (>50 = increased risk): 23.5 O2 Device: Room Air Pain Ratin Physical Exam Constitutional: Comments: She is cachectic and weak. HENT: Head: Normocephalic. Nose: Nose normal. Mouth/Throat: Mouth: Mucous membranes are moist. Pharynx: Oropharynx is clear. No oropharyngeal exudate. Eyes: General: No scleral icterus. Conjunctiva/sclera: Conjunctivae normal. Pupils: Pupils are equal, round, and reactive to light. Neck: Musculoskeletal: Normal range of motion and neck supple. Cardiovascular: Rate and Rhythm: Regular rhythm. Tachycardia present. Heart sounds: No murmur. Pulmonary: Effort: Pulmonary effort is normal. Breath sounds: Normal breath sounds. Abdominal: General: Abdomen is flat. Palpations: Abdomen is soft. Musculoskeletal: Normal range of motion. Skin: General: Skin is warm. Findings: Lesion present. Neurological: General: No focal deficit present. Mental Status: She is alert. Psychiatric: Comments: Apprehensive. Results for BLAIR STAFFORD ( ) as of 10/18/2020 19:50 Ref. Range 10/18/2020 16:19 WBC Latest Ref Range: 4.0 - 11.0 K/uL 7.8 RBC Latest Ref Range: 3.80 - 5.30 M/uL 4.37 Hemoglobin Latest Ref Range: 11.5 - 15.8 g/dL 12.2 Hematocrit Latest Ref Range: 35.0 - 45.0 % 37.1 MCV Latest Ref Range: 80.0 - 98.0 fL 84.9 MCH Latest Ref Range: 25.5 - 34.0 pg 27.9 MCHC Latest Ref Range: 31.5 - 36.5 g/dL 32.9 RDW-CV Latest Ref Range: 11.5 - 15.5 % 15.2 RDW-SD Latest Ref Range: 35.5 - 50.0 fl 46.1 Platelet Count Latest Ref Range: 140 - 400 K/uL 93 (L) MPV Latest Ref Range: 8.5 - 12.0 fL 12.7 (H) Seg Neut Absolute Latest Ref Range: 1.8 - 8.0 K/uL 6.7 Lymphocytes Absolute Latest Ref Range: 0.8 - 4.1 K/uL 0.4 (L) Monocytes Absolute Latest Ref Range: 0.0 - 1.0 K/uL 0.7 Eosinophils Absolute Latest Ref Range: 0.0 - 0.7 K/uL 0.0 Basophil Absolute Latest Ref Range: 0.0 - 0.2 K/uL 0.0 Immature Granulocyte Absolute Latest Ref Range: 0.00 - 0.06 K/uL 0.02 Neutrophils Percent Latest Units: % 85.7 Neutrophils Abs. (Segs and Bands) Latest Units: /uL 6,700 Lymphocytes Percent Latest Units: % 5.0 Monocytes Percent Latest Units: % 8.6 Immature Granulocyte Percent Latest Units: % 0.3 Eosinophils Percent Latest Units: % 0.3 Basophil Percent Latest Units: % 0.1 Nucleated RBC Latest Units: /100 WBC's 0 Platelet Morphology Unknown Large Platelets Present Glucose Latest Ref Range: 70 - 100 mg/dL 204 (H) Sodium Latest Ref Range: 135 - 145 meq/L 133 (L) Potassium Latest Ref Range: 3.5 - 5.3 meq/L 3.2 (L) Chloride Latest Ref Range: 99 - 110 meq/L 98 (L) CO2 Latest Ref Range: 20 - 29 meq/L 28 Anion Gap with K Latest Ref Range: 6 - 20 meq/L 10 BUN Latest Ref Range: 6 - 22 mg/dL 9 Creatinine Latest Ref Range: 0.60 - 1.10 mg/dL 0.66 BUN/Creatinine Ratio Latest Ref Range: 10.0 - 25.0 13.6 Calcium Latest Ref Range: 8.5 - 10.5 mg/dL 8.3 (L) Corrected Calcium Latest Ref Range: 8.5 - 10.5 mg/dL 9.5 Phosphorus Latest Ref Range: 2.5 - 4.5 mg/dL 1.8 (L) Magnesium Latest Ref Range: 1.8 - 2.4 mg/dL 1.5 (L) Bilirubin Total Latest Ref Range: 0.2 - 1.2 mg/dL 1.2 Alkaline Phosphatase Latest Ref Range: 30 - 150 U/L 134 ALT - SGPT Latest Ref Range: 0 - 55 U/L 8 AST - SGOT Latest Ref Range: 0 - 35 U/L 17 Protein Total Latest Ref Range: 6.0 - 8.2 g/dL 6.6 Albumin Latest Ref Range: 3.5 - 5.0 g/dL 2.5 (L) eGFR Latest Ref Range: >=60 mL/min/1.73m2 >90 eGFR Non- Latest Ref Range: >=60 mL/min/1.73m2 86 Protime Latest Ref Range: 12.0 - 14.5 secs 22.1 (H) INR Latest Ref Range: 2.0 - 3.5 2.0 STANT SURVEYOR documented in this encounter Consult Notes Calixto Barrios, [facility] - 10/21/2020 4:04 PM CST Vancomycin Initial Consult Note Ms. Stafford was admitted on 10/18/2020 and today has been initiated on Vancomycin per pharmacy protocol for cellulitis/osteomyelitis of the finger. Labs: Vancomycin Trough Date/Time Value Ref Range Status 08/04/2017 09:58 PM 33.7 (H) 10.0 - 20.0 ug/mL Final WBC Date/Time Value Ref Range Status 10/21/2020 06:50 AM 4.2 4.0 - 11.0 K/uL Final 09/29/2020 4.6 Final 04/04/2018 03:11 PM 7.0 K/uL Lab Results Component Value Date CREATSERUM 0.58 (L) 10/21/2020 Cultures: Max Temperature: Temp (24hrs), Av.5 F (36.4 C), Min:97.4 F (36.3 C), Max:97.9 F (36.6 C) Estimated CrCl: CrCl cannot be calculated (Unknown ideal weight.). ml/min Intake/Output: Intake/Output Summary (Last 24 hours) at 10/21/2020 1604 Last data filed at 10/21/2020 1512 Gross per 24 hour Intake 1000 ml Output 700 ml Net 300 ml Other Active Antimicrobial Agents: Plan: We have initiated intravenous Vancomycin therapy at a dose of 1000mg every 12 hours. The goal troughrange will be 15-20mcg/ml. Pharmacy will monitor and if indicated, adjust dose and/or frequency per the Pharmacy and Therapeutics Committee approved pharmacokinetic service policy. Thank you very much for the consult. We will continue to follow along with you. Calixto Barrios, PharmD, BCCP STANT SURVEYOR Real Burgos MD - 10/21/2020 3:06 PM CSTAssociated Order(s): CONSULT INFECTIOUS DISEASE Infectious Disease Consult Note Requesting Physician: --Dr Jason Thomas Reason for consultation: Question of right index finger osteomyelitis History of present illness: The patient is a 80-year-old female who is currently hospitalized with a question of a possible osteomyelitis involving her right index finger. She has a complicated past medical history which includes multiple cancers. In summary she was diagnosed with a colon cancer back in 2006 which declared as a complicated intra-abdominal infection and pneumoperitoneum. The patient was treated with chemotherapy at that time and monitored for several years thereafter. I believe she received XELOX which concluded in August 2007. She was followed for an extended period of time thereafter but was later discovered to have a enlarging mediastinal mass with pathology proving this to be a thymoma in December 2019.She also was noted to have a right upper lobe nodule which was biopsied in August 2020 consistent with invasive adenocarcinoma. Furthermore a MRI of the abdomen showed a 2.4 cm pancreatic head mass which raise suspicion for cancer. FNA sampling done through endoscopy revealed this to be carcinoma. She is currently undergoing radiation therapy in addition, she has been started on Capecitabine. The patient was seen in oncology clinic on October 18 and was generally not feeling well. She has continued to have diarrhea while on radiation therapy. She had apparently incidentally noted that her right index finger nail had fallen off and her finger became red and swollen. Due to those findings she was recommended for direct admission. She has been afebrile here and her investigational labs have revealed no leukocytosis. She has a area of skin breakdown at the tip of her index finger and swelling across the proximal and distal interphalangeal joint. She has been seen by hand surgery and my understanding has been offered to surgery to which the patient has declined. Her imaging on admission is consistent with bone irregularities at the distal end of the distal phalanx. Otherwise, 12 systems were reviewed and are negative except for what was mentioned above. Past medical history: Colon adenocarcinoma in 2006 status post chemotherapy Perforated bowel secondary to colon adenocarcinoma in 2006 status post bowel resection at the hepatic flexure Thymoma Adenocarcinoma; metastatic disease in the lung Pancreatic carcinoma History of DVT Acute kidney injury Diabetes Factor V Leiden History of clotting disorder Right femoral-popliteal bypass Appendectomy Cholecystectomy Family history: Stroke, gynecologic cancer, colon cancer Social history/risk factors: Hives associated with penicillin Itching and rash associated with levofloxacin Unknown reaction associated with TMP-SMX Prior history of tobacco use No alcohol use No drug use Medications: Current Facility-Administered Medications: warfarin (COUMADIN) tablet 1.25 mg, 1.25 mg, Oral, Warfarin 1 time dose, Gertrude Thomas MD loperamide (IMODIUM) capsule 4 mg, 4 mg, Oral, Every 4 hours prn, Gertrude Thomas MD, 4 mg at10/21/20 0832 influenza HIGH DOSE virus vaccine quadrivalent IM injection 0.7 mL, 0.7 mL, Intramuscular, Prior to discharge, Gertrude Thomas MD influenza immunization reminder, 1 each, Does not apply, Immunization prior to discharge, Gertrude Thomas MD diphenoxylate-atropine (LOMOTIL) 2.5-0.025 mg tablet 2 tablet, 2 tablet, Oral, 4 times a day prn, Gertrude Thomas MD, 2 tablet at 10/21/20 1512 acetaminophen (TYLENOL) tablet 500 mg, 500 mg, Oral, Every 4 hours prn, Gertrude Thomas MD gabapentin (NEURONTIN) capsule 600 mg, 600 mg, Oral, 3 times a day, Gertrude Thomas MD, 600 mg at 10/21/20 0832 glipiZIDE ER (GLUCOTROL XL) extended release tablet (24 hr) 5 mg, 5 mg, Oral, daily, Gertrude Thomas MD, 5 mg at 10/21/20 0832 zzrewt-jopshqzv-jcgjatc (CREON 12,000) 12-38-60 KU capsule 1 capsule, 1 capsule, Oral, 3 times a day with meals, Gertrude Thomas MD, 1 capsule at 10/20/20 174 nicotine (NICODERM) 21mg/24hr patch, 1 patch, Transdermal, daily, Gertrude Thomas MD, 21 mg at 10/20/20 0825 phytonadione (vitamin K) tablet 200 mcg, 200 mcg, Oral, daily, Gretrude Thomas MD, 200 mcg at10/21/20 0832 potassium chloride (KLOR-CON M20) CR tablet 20 mEq, 20 mEq, Oral, 2 times a day, Gretrude Thomas MD, 20 mEq at 10/21/20 0832 triamcinolone acetonide (KENALOG,ARISTOCORT) 0.1 % cream, , Apply externally, 2 times a day, Gertrude Thomas MD, Given at 10/19/20 195 cefTRIAXone (ROCEPHIN) 1000 mg/10 mL IV syringe in sterile water, 1,000 mg, IV, Every 24 hours,Gertrude Thomas MD, 1,000 mg at 10/20/20 173 senna-docusate sodium (SENOKOT-S;PERICOLACE) tablet 1 tablet, 1 tablet, Oral, 2 times a day prn, Gertrude Thomas MD bisacodyl (DULCOLAX) suppository 10 mg, 10 mg, Rectal, 1 time a day prn, Gertrude Thomas MD ondansetron (ZOFRAN) injection solution 4 mg, 4 mg, IV, Every 4 hours prn, Gertrude Thomas MD, 4 mg at 10/21/20 0838 prochlorperazine (COMPAZINE) 10 mg/2 mL injection solution 5 mg, 5 mg, IV, Every 6 hours prn, Gertrude Thomas MD sodium chloride 0.9% flush (adult) 10 mL, 10 mL, IV, 2 times a day and prn, Gertrude Thomas MD potassium chloride 20mEq in sodium chloride 0.9% 1000 mL IV solution, , IV, Continuous, Gertrude Thomas MD, Last Rate: 75 mL/hr at 10/21/20 0840, New Bag at 10/21/20 0840 HYDROmorphone (DILAUDID) injection solution (conc: 0.5 mg/0.5mL) 0.5 mg, 0.5 mg, IV, Every 1 hour prn, Gertrude Thomas MD HYDROmorphone (DILAUDID) injection solution (conc: 1 mg/mL) 1 mg, 1 mg, IV, Every 1 hour prn, Gertrude Thomas MD traZODone (DESYREL) tablet 50 mg, 50 mg, Oral, Bedtime prn, Gertrude Thomas MD multivitamin therapeutic with minerals (THERA-M) tablet 1 tablet, 1 tablet, Oral, Daily, Gertrude Thomas MD, 1 tablet at 10/21/20 0832 dextrose 50% IV solution 50 mL, 25 g, IV, PRN per parameter, Gertrude Thomas MD glucagon for injection 1 mg vial 1 mg, 1 mg, Intramuscular, PRN per parameter, Gertrude Thomas MD dextrose chewable tablet 16 g, 4 tablet, Oral, PRN per parameter OR carbohydrate 15 g, 15 g, Oral, PRN per parameter, Gertrude Thomas MD insulin aspart (NovoLOG) SQ correction scale (Adult), 2-8 Units, Subcutaneous, 3 times a day, Gertrude Thomas MD, 2 Units at 10/21/20 0628 .Anticoagulation (WARFARIN) therapy nursing reminder, 1 each, Does not apply, Reminder, Gertrude Thomas MD Facility-Administered Medications Ordered in Other Encounters: sodium chloride 0.9% injection solution 10-20 mL, 10-20 mL, IV, PRN per parameter, Irina Ordaz APRN-BRINDA heparin 100 units/ mL injection for heplock FLUSH, 5 mL, IV, PRN per parameter, Ordaz, Irina A, MAT MAKING MACHINE TENDER-SHIP WASHER sodium chloride 0.9% prefilled 10 mL syringe (Materials Management Item) 20 mL, 20 mL, IV, As often as necessary prn AND heparin 100 units/ mL injection for heplock FLUSH, 500 Units, IV, As often as necessary prn, Irina Ordaz APRN-BRINDA sodium chloride (vial) 0.9% flush 20 mL, 20 mL, IV, As often as necessary prn, Irina OrdazMAT MAKING MACHINE TENDER-BRINDA heparin 100 units/ mL injection for heplock FLUSH, 5 mL, IV, 1 time, Irina Ordaz MAT MAKING MACHINE TENDER-BRINDA sodium chloride (vial) 0.9% flush 20 mL, 20 mL, IV, As often as necessary prn, Irina OrdazMAT MAKING MACHINE TENDER-BRINDA heparin 100 units/ mL injection for heplock FLUSH, 5 mL, IV, 1 time, Irina Ordaz MAT MAKING MACHINE TENDER-BRINDA Vitals: Vitals: 10/21/20 0821 BP: 139/72 Pulse: 92 Resp: 18 Temp: 97.4 F (36.3 C) SpO2: 98% Physical Exam: Calm Nontoxic-appearing Head atraumatic Neck supple Heart sounds are regular Lungs are clear Abdomen nontender Left index finger with swelling all the way up to the metacarpal phalangeal joint Difficult to passively flex all interphalangeal joints The nail is missing from the second finger and there is an ulcerative lesion at the tip No other hot red or swollen joints No other rash or sign of infection Alert Oriented x3 Pleasant affect without sign of psychosis or delirium Labs: Lab Results Component Value Date GLUCOSE 142 (H) 10/21/2020 BUN 6 10/21/2020 CREATSERUM 0.58 (L) 10/21/2020 BCRATIO 10.3 10/21/2020 NA 136 10/21/2020 POTASSIUM 3.3 (L) 10/21/2020 CL 106 10/21/2020 CO2 19 (L) 10/21/2020 ANIONGAP 10.2 09/25/2020 CA 7.0 (L) 10/21/2020 EGFR >90 10/21/2020 EGFRAF >90 10/21/2020 Lab Results Component Value Date WBC 4.2 10/21/2020 NUCRBC 0 10/21/2020 RBC 4.09 10/21/2020 HEMOGLOBIN 11.6 10/21/2020 HEMATOCRIT 35.4 10/21/2020 MCV 86.6 10/21/2020 MCH 28.4 10/21/2020 MCHC 32.8 10/21/2020 RDW 13.6 09/29/2020 PLTCOUNT 91 (L) 10/21/2020 NEUTROPCT 77.6 10/21/2020 BANDPCT 2 05/09/2013 LYMPHSPCT 7.4 10/21/2020 MONOSPCT 12.6 10/21/2020 EOSPCT 1.7 10/21/2020 BASOPHILPCT 0.2 10/21/2020 METAMYELOPCT 2 (H) 05/09/2013 MYELOCYTEPCT 2 (A) 05/09/2013 Lab Results Component Value Date CRP 57.0 (H) 10/21/2020 Lab Results Component Value Date ESR 40 (H) 10/21/2020 Radiology: 10/20 hand x-ray reviewed 10/21 chest x-ray reviewed ASSESSMENT: 1. Radiographic evidence of osteomyelitis of the index finger of the right hand 2. Right index finger cellulitis 3. Neuropathy of the right hand/finger 4. Pancreatic carcinoma on radiation therapy 5. Right lung adenocarcinoma 6. Thymoma 7. History of colon cancer 8. Peripheral neuropathy 9. Onycholysis 10. Dactylitis The patient is a 80-year-old female currently on Capecitabine and radiation therapy for a pancreaticcancer with to my understanding metastases to the right lung. She has a history of thymoma and colon adenocarcinoma as well. She was hospitalized for a lesion on her right index finger. She has skinulceration or breakdown and radiographic evidence on x-ray concerning for osteomyelitis. She tells me she has had a peripheral neuropathy for several months. She does tell me she has sensation in her fingers although would not clearly endorse how much loss of sensation is there. She doestell me she can feel pain. She told me that she incidentally discovered her right index finger nailhad fallen off. She cannot tell me how long she has had an ulceration there. From the clinical picture, I would suspect she had an ulceration there for an extended period of time given that this is likely contiguous osteomyelitis down to the distal end of the second index finger. The best a solution out of this would be surgical management and I explained this to her. With her peripheral neuropathy, IV antibiotics alone may not necessarily heal the skin defect protecting her bone so I would recommend surgical treatment followed by antibiotics rather than antibiotics alone. She will take this into consideration. I have communicated this to her oncologist as well. Given the likely polymicrobial nature of the infection, I will advance antibiotics to broad-spectrumcoverage. RECOMMENDATIONS: Stop Ceftriaxone Start Cefepime 2 g IV every 8 hour Start Vancomycin; goal trough 1520 Start Metronidazole 500 mg every 8 hour Recommend surgical management; patient will consider this. Thank you for the consultation. Infectious disease will continue to follow. Please call with questions. Real Burgos MD Infectious Disease [place], [place] STANT SURVEYOR Herber Casas MD - 10/20/2020 11:59 PM CST Hand Surgery Consult Note Consults Assessment / Plan Principal Problem: Dehydration Active Problems: Type 2 diabetes mellitus with circulatory disorder (HCC) Diabetic ulcer of heel (HCC) Fatigue Diarrhea, unspecified Pancreatic cancer (HCC) Hypokalemia Hypomagnesemia Open wound Colon cancer (HCC) Weakness 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) Finger infection Hypophosphatemia Moderate protein-calorie malnutrition (HCC) ASSESSMENT: Right index fingertip with signs of osteomyelitis of the distal phalanx. I suspect this likely occurred from an innocuous appearing wound or burn she might have sustained within the past week or 2. I am also concerned about possible metastatic lesion given her significant past medical history of several cancers. This would be much less than unusual; however, to the index finger distal phalanx. PLAN: I have discussed the above findings with Ms. Stafford and outlined her treatment options. I discussed with her the surgical options to treat this which would be amputation of the finger. She really did not seem too enthusiastic about that at this point given her other medical issues she is cur rently confronted with. I discussed her case with Dr. Thomas, her hospital attending, and recommended infectious disease consult for their opinion on whether any long-term antibiotic treatment could potentially temporize things until perhaps this could be done as an outpatient should she wish to proceed with the amputation. Trans ID: [id number] ASSISTANT SURVEYOR ASSISTANT SURVEYOR Reason for Consult Finger swelling HPI / History / ROS HPI Ms. Stafford is an 80-year-old, right-handed female with a significant past medical history for type2 diabetes, a history of colon cancer status post colectomy, right non-small cell lung cancer and a recent diagnosis of pancreatic cancer, currently undergoing radiation treatment. Regarding her hand, she has had a complaint of about a week prior to admission of some pain and swelling she noticed to her right index finger and that her nail plate had fallen off. She denies any injury to the finger. She denies any previous occurrence. She notes that it has become a bit more comfortable to flex and extend her finger and she brought this to the attention of her attending physician after admission. He asked me to see her regarding this. She was started on a course of Rocephin while in house. 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 Other staphylococcus infection in conditions classified elsewhere and of unspecified site Encounter for long-term (current) use of other medications Infection with drug-resistant microorganisms IVC thrombosis (HCC) Heterozygous factor V Leiden mutation (HCC) SVC (superior vena cava obstruction) Deep vein thrombosis of left lower extremity (HCC) Thrombosis of subclavian artery (HCC) Ankle joint pain Diabetic ulcer of heel (HCC) Encounter for long-term (current) use of antibiotics Peripheral vascular disease (HCC) Ischemic heel ulcer (HCC) Tobacco abuse Encounter for central line care Iron deficiency Anemia Fatigue Elevated factor VIII level Cough Sepsis (HCC) CE (acute kidney injury) (HCC) Diarrhea, unspecified NSTEMI (non-ST elevated myocardial infarction) (HCC) Acute kidney injury (HCC) Coughing Thymoma Lung nodule Pancreatic mass Malignant neoplasm of upper lobe of right lung (HCC) Pancreatic cancer (HCC) Hypokalemia Malignant neoplasm of head of pancreas (HCC) Adenocarcinoma, lung, right (HCC) Hypomagnesemia Dehydration Open wound Colon cancer (HCC) Weakness 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) Finger infection Hypophosphatemia Moderate protein-calorie malnutrition (HCC) Current Facility-Administered Medications Medication Dose Route Frequency sodium phosphates 30 mmol in dextrose 5% 250 mL 30 mmol IV 1 time loperamide (IMODIUM) capsule 4 mg 4 mg Oral Every 4 hours prn influenza HIGH DOSE virus vaccine quadrivalent IM injection 0.7 mL 0.7 mL Intramuscular Prior to discharge influenza immunization reminder 1 each Does not apply Immunization prior to discharge diphenoxylate-atropine (LOMOTIL) 2.5-0.025 mg tablet 2 tablet 2 tablet Oral 4 times a day prn acetaminophen (TYLENOL) tablet 500 mg 500 mg Oral Every 4 hours prn gabapentin (NEURONTIN) capsule 600 mg 600 mg Oral 3 times a day glipiZIDE ER (GLUCOTROL XL) extended release tablet (24 hr) 5 mg 5 mg Oral daily knzudn-scbhjskf-wnszvio (CREON 12,000) 12-38-60 KU capsule 1 capsule 1 capsule Oral 3 times a day with meals nicotine (NICODERM) 21mg/24hr patch 1 patch Transdermal daily phytonadione (vitamin K) tablet 200 mcg 200 mcg Oral daily potassium chloride (KLOR-CON M20) CR tablet 20 mEq 20 mEq Oral 2 times a day triamcinolone acetonide (KENALOG,ARISTOCORT) 0.1 % cream Apply externally 2 times a day cefTRIAXone (ROCEPHIN) 1000 mg/10 mL IV syringe in sterile water 1,000 mg IV Every 24 hours senna-docusate sodium (SENOKOT-S;PERICOLACE) tablet 1 tablet 1 tablet Oral 2 times a day prn bisacodyl (DULCOLAX) suppository 10 mg 10 mg Rectal 1 time a day prn ondansetron (ZOFRAN) injection solution 4 mg 4 mg IV Every 4 hours prn prochlorperazine (COMPAZINE) 10 mg/2 mL injection solution 5 mg 5 mg IV Every 6 hours prn sodium chloride 0.9% flush (adult) 10 mL 10 mL IV 2 times a day and prn potassium chloride 20mEq in sodium chloride 0.9% 1000 mL IV solution IV Continuous HYDROmorphone (DILAUDID) injection solution (conc: 0.5 mg/0.5mL) 0.5 mg 0.5 mg IV Every 1 hour prn HYDROmorphone (DILAUDID) injection solution (conc: 1 mg/mL) 1 mg 1 mg IV Every 1 hour prn traZODone (DESYREL) tablet 50 mg 50 mg Oral Bedtime prn multivitamin therapeutic with minerals (THERA-M) tablet 1 tablet 1 tablet Oral Daily dextrose 50% IV solution 50 mL 25 g IV PRN per parameter glucagon for injection 1 mg vial 1 mg 1 mg Intramuscular PRN per parameter dextrose chewable tablet 16 g 4 tablet Oral PRN per parameter Or carbohydrate 15 g 15 g Oral PRN per parameter insulin aspart (NovoLOG) SQ correction scale (Adult) 2-8 Units Subcutaneous 3 times a day .Anticoagulation (WARFARIN) therapy nursing reminder 1 each Does not apply Reminder Facility-Administered Medications Ordered in Other Encounters Medication Dose Route Frequency sodium chloride 0.9% injection solution 10-20 mL 10-20 mL IV PRN per parameter heparin 100 units/ mL injection for heplock FLUSH 5 mL IV PRN per parameter sodium chloride 0.9% prefilled 10 mL syringe (Materials Management Item) 20 mL 20 mL IV As often as necessary prn And heparin 100 units/ mL injection for heplock FLUSH 500 Units IV As often as necessary prn sodium chloride (vial) 0.9% flush 20 mL 20 mL IV As often as necessary prn heparin 100 units/ mL injection for heplock FLUSH 5 mL IV 1 time sodium chloride (vial) 0.9% flush 20 mL 20 mL IV As often as necessary prn heparin 100 units/ mL injection for heplock FLUSH 5 mL IV 1 time Allergies Allergen Reactions Penicillin Hives (High) Adhesives Rash Mepilex Border dressing Bactericin [Bacitracin] Unknown/Not Verified Cortisporin [Dzouuevm-Aytdgcbtr-Tv] Rash Hydrocortisone [Cortizone] Unknown/Not Verified Levofloxacin Itching and Rash Lincocin Unknown/Not Verified [facility] Ca Alginate 2"X2" [Alginate - Carboxymethylcellulose - Silver] Unknown/Not Verified Patient unable to give me symptoms Monistat [Tioconazole] Unknown/Not Verified Septra [Sulfamethoxazole W-Trimethoprim] Unknown/Not Verified Silvadene [Silver Sulfadiazine] Other (Specify in Comments) Blister with silvadene cream, anything with silver (aquacel wound products) Silver Picrate Rash Silver products Soap Itching Hospital soap and lotions, uses dove. Sodium Acetate Unknown/Not Verified Sulfa Drugs Unknown/Not Verified Sulfamethoxazole W-Trimethoprim Rash Tpn Electrolytes Ii [Lypholyte] Unknown/Not Verified Xeroform [Bismuth Tribromoph-Petrolatum] Unknown/Not Verified Patient not able to give me symptoms Past Medical History: Diagnosis Date CE (acute kidney injury) (HCC) Allergy Anemia Cataract Clotting disorder (HCC) Deep vein thrombosis of left lower extremity (HCC) 02/18/2012 DM w/o Complication Type II Elevated factor VIII level Essential hypertension, benign Factor 5 Leiden mutation, heterozygous (HCC) history of per pt. Fatigue Finger infection 10/18/2020 Hx antineoplastic chemo Hypophosphatemia 10/18/2020 Iron deficiency Ischemic heel ulcer (HCC) 11/11/2013 IVC thrombosis (HCC) Lung nodule 08/20/2020 Malignant neoplasm of colon, unspecified site 11/28/2006 Malignant neoplasm of upper lobe of right lung (HCC) 09/01/2020 Moderate protein-calorie malnutrition (HCC) 10/20/2020 MRSA (methicillin resistant staph aureus) culture positive 07/2009 abd wound, 12/2015 foot Myocardial infarction (HCC) NSTEMI- pt denies 01/05/2020 Pancreatic mass 08/20/2020 Peripheral vascular disease (HCC) 11/11/2013 PVD (peripheral vascular disease) (HCC) Sepsis (HCC) Staph Infection NEC 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 Thymoma 02/10/2020 Tobacco abuse 11/13/2013 Past Surgical History: Procedure Laterality Date APPENDECTOMY ARTHROPLASTY ACETABULAR PROXIMAL FEMORAL PROSTHETIC REPLACE WWO AUTOG 20120103 ARTHROSCOPY KNEE SURGICAL SYNOVECTOMY LIMITED (SEP PROC) 20120103 BYPASS GRAFT WOTHER THAN VEIN FEMORAL-POPLITEAL 20120103 CHOLECYSTECTOMY COLECTOMY PARTIAL WCOLOPROCTOSTOMY (LOW PELVIC ANASTOMOSIS) 20120103 COLECTOMY PARTIAL WRESECTION WCOLOSTMY ILEOSTMY & CREATN MUCOFISTULA 20120103 COLON SURGERY COLONOSCOPY 06/30/2014 Procedure: COLONOSCOPY;; Surgeon: Des Carvalho MD COSMETIC SURGERY ERCP N/A 09/05/2020 Procedure: ENDOSCOPIC RETROGRADE CHOLANGIOPANCREATOGRAPHY;; Surgeon: Joey Pedersen MD EXPLORATORY LAPAROTOMY EXPLORATORY CELIOTOMY WWO BX(S) (SEP PROC) 20120103 EYE SURGERY HERNIA REPAIR INSERT TUNNELED CENTRALLY INSERTED VENOUS ACCESS DEVICE WSUBQ PORT 20120103 JOINT REPLACEMENT Right hip LAPAROSCOPY SURGICAL SLING OPERATION FOR STRESS INCONTINENCE 20120103 LIGATION TRANSECTION FALLOPIAN TUBE ABD VAGINAL APPRCH UNILAT BILAT 20120103 RPR INITIAL INCISIONAL VENTRAL HERNIA REDUCIBLE 20120103 RPR INITIAL INGUINAL HERNIA AGE 5+ REDUCIBLE 20120103 TUBAL LIGATION UPP ENDO W EUS EXT N/A 09/05/2020 Procedure: UPPER ENDOSCOPY WITH ENDOSCOPIC ULTRASOUND EXTENDED;; Surgeon: Joey Pedersen MD UPPER ENDOSCOPY 06/30/2014 Procedure: UPPER ENDOSCOPY;; Surgeon: Des Carvalho MD UPPER ENDOSCOPY N/A 09/05/2020 Procedure: UPPER ENDOSCOPY;; Surgeon: Joey Pedersen MD VASCULAR BYPASS 06/24/2012 RIGHT FEMORAL POPLITEAL BYPASS REDO; DEBRIDEMENT OF RIGHT LOWER LEG ULCER; Surgeon: Efra García DO Family History Problem Relation Age of Onset Not otherwise listed - Cancer Brother Colon cancer. Stroke Father Not otherwise listed - Cancer Sister Assistant Director Of Public Works cancer. 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 10/19/20 Substance and Sexual Activity Alcohol use: No Drug use: No Sexual activity: Never Social History Narrative Mrs. Stafford is a woman who lives in her own home in [place] with her daughter, Vanessa, in [facility]. Vanessa works in [employer] as a record label intern and is very supportive and knowledgeable about her mother's history. Son Dylan is 52; Type 1 DM and has had foot amputation. 2 granddaughters, Anne 22and Sara 19. Mrs. Stafford has a hx of at least 1 ppd smoking, approx 50 pk yrs; did not smoke while she was in the hospital the past month but started smoking again as soon as she got home yesterday. She does not drink alcohol. Review of Systems Review of Systems Constitutional: Positive for unexpected weight change. Respiratory: Negative. Cardiovascular: Negative. Musculoskeletal: Positive for joint swelling. Physical / Results Current Vital Signs Temp: 97.4 F (36.3 C) BP: 149/74 Weight: 54 kg (119 lb 0.8 oz) SpO2: 99 % Resp: 18 Pulse: 96 Current BMI (>50 = increased risk): 23.5 O2 Device: Room Air Pain Ratin Physical Exam GENERAL: She appears to be a well-nourished, well-developed female who was alert and active and answering my questions appropriately. She is resting comfortably in her hospital bed. MUSCULOSKELETAL: Her right hand is examined. She has an ulcerated appearing wound to the tip of her index finger. It is beefy red with a clean base. There is no purulence expressed. There does appear to be some exposed bony architecture. The nail plate is missing. She does have intact extensionand flexion of her PIP joint albeit somewhat limited due to the mild diffuse edema up to the level of the PIP joint. There is no fluctuance appreciated. She is nontender to palpation over her extensor surface and has mild discomfort to palpation over the flexor surface Trans ID: [id number] ASSISTANT SURVEYOR ASSISTANT SURVEYOR XRAYS: (Right Hand) Lytic changes to index finger distal phalanx with fragmentation. Tapered soft tissue. No emphysema Medical Decision Making I have: Discussed case with another provider (details outlined elsewhere in note). documented in this encounter Miscellaneous Notes Occupational Therapy - Dipti Minaya, LOIDA/Jason - 11/18/2020 3:29 PM CDT Occupational Therapy Acute Care Progress Note Impression/Recommendations Pt requires increased assistance with ADLs and functional transfers compared to baseline performance. Pt presents with overall deconditioning, decreased attention and often is self limiting. Pt will benefit from further inpatient therapies at a lower intensity therapy setting (I.e. ST-SNF, TCU, swing bed) in order to continue building strength and endurance while improving independence in ADLs and transfers. Objective Cognition:Alert. Oriented x self, , location, city, month and year;Often forgetful; Pt often demanding and self limiting asking therapist and staff to complete tasks for her that she can complete herself. Encouragement provided and educated on purpose of therapy is to improve her independence. U/E: Pt tolerated B UE strengthening exercises using 1# free weight to B UEs while in supine for 10-15 reps through each plane of movement to help increase strength and endurance to aid in independence with ADLs and transfers. Pt required AAROM to R shoulder due to proximal weakness and reported discomfort with weight. Pt completed R hand exercises (6 pack exercises) x 10 reps. Pt demo's recall from previous OT sessions and states she has been completing independently. Oxygen Level:>90% throughout session ADLs: Pt declined participation despite encouragement Transfers: Pt declined participation despite encouragement Pain: 0/10 Location: Pt denies pain throughout session Education Education/Training provided:Role of OT, plan of care,UE exercise technique/speed and reasoning for exercises; Use of call light and importance of calling for assistance Learners:Patient Readiness: Acceptance Method of Training:Verbal education, demonstration Response:Verbalized/demonstrated understanding, will benefit from continued reinfocement Adaptive Equipment Recommendations To further assess Plan to obtain adaptive equipment: To further assess. Adaptive Equipment Available:toilet safety frame, hand held shower, extended tub bench, airline stewardess, wheelchair and front-wheeled walker Goals Patient/Family Stated Goal for Session:none stated though agreeable to OT Short Term Goals: Patient will tolerate 15-30 minutes U/E exercise to further increase independence with ADL/IADLs (ongoing) Patient will complete grooming task safely standing at the sink withSBAusing adaptive equipment as needed. (ongoing) Patient will complete LB dressing safely withSBAusing adaptive equipment as needed. (ongoing) Patient will complete toileting safely withSBAusing adaptive equipment as needed. (ongoing) Patient will complete functional transfers safely withSBAusing adaptive equipment as needed. (ongoing) Patient will further participate with cognitive assessment to increase safety with functional tasks.(ongoing) Patient will have AE in place to increase safety with ADLs by discharge(ongoing) Patient continues toslowlyprogress towards goals. Charges Treatment/Minutes: Today's Evaluation/Treatment Therapeutic exercise: 16 minutes Total Treatment Time: 16 minutes Treatment Session Weekly Assessment/Plan (Day 5): Continue OT POC as appropriate Therapist Alpha Pager Number [phone] ase Rafi - Valery Shukla, JESSICA - 11/18/2020 11:42 AM CDTCASE MANAGEMENT / SOCIAL SERVICE FINAL TRANSITION PLAN TRANSITION DATE: 11/18/2020 TRANSITION TIME: 4:00-4:30PM INTENDED PAYER SOURCE FOR AGENCY: Medicare Part A Supplemental Insurance- [place] TRANSITION DESTINATION: [facility] [address] [place] [address] P- [phone]- ask for nurses station for nurse to nurse report f- [phone] DOES ACCEPTING FACILITY REQUIRE COVID TESTING BEFORE DISCHARGE: Needs one negative test within 24-48 hours- completed on 11/17 and negative TRANSITION TRANSPORTATION: Family Car TRANSPORTATION PAYMENT: Not applicable TRANSITION CHOICES OFFERED: [facility] Transitional [facility] Transportation assistance IV antibiotics continue through - PICC line in place- tunneled- will need to get removed by IR DOES THE PATIENT HAVE A PRIMARY CARE PHYSICIAN? Yes Teodoro Araujo PA-C PATIENT / SUBSTITUTE DECISION MAKER GOAL UPON TRANSITION: First Choice: [facility] Transitional Care IV antibiotics continue through - PICC line in place- tunneled- will need to get removed by IR PATIENT CHOICE EDUCATION: Choice form completed in Case Management note and copy given to patient/family MEDICARE 3 IP MIDNIGHT CRITERIA MET: Yes: Admitted on 10/18/2020 RESOURCE(S) PROVIDED: Placement and Transportation DOES PATIENT HAVE CLOTHING TO WEAR AT DISCHARGE? Yes ANTICIPATED MODE OF TRANSPORT TO AND FROM FOLLOW UP APPOINTMENTS: Family Car VERIFIED CORRECT PHARMACY IS ENTERED FOR DISCHARGE: Yes - Pharmacy: [facility]- Hospital will use own pharmacy METHOD OF PRESCRIBING MEDICATIONS: Reconcile medications as Patient Transfer ("65 button") TRANSITION ROUNDING COMPLETED WITH THE FOLLOWING: Patient / family Laminating Machine Offbearer Attending MD Bedside pusher runner RN Discussed in person COMMENTS / PATIENT AND FAMILY RESPONSE TO PLAN: EMR reviewed. Plan for Blair to discharge to [facility] this afternoon. She will complete her last treatment of radiation this afternoon. She will continue IV antibiotics- Ertapenem 1 gram and Daptomycin 6 mg/kg daily through 12/05/2020. Dr. Burgos has placed IV antibiotic orders. Spokewith Olivia at [facility] [place] [facility]- plan was also to continue Octreotide injections 200 mcg every eight hours to help control her diarrhea- this has improved. [facility] was able to obtain a supply for Blair. Her daughter Vanessa will be providing transportation this afternoon. Patient did not have any questions or concerns for CM at this time. SPECIAL TRANSITION DAY INSTRUCTIONS TO NURSE / MD: OCCUPATIONAL THERAPY SPECIALIST: Please fax interagency packet to above fax number. [phone] Nursing: Please call report at above number before patient leaves. [phone] ask for nurses station MD: Please do Interagency transfer order set, ensure orders for PT, OT are included. When doing medication orders, there cannot be any range orders and indication is needed for all meds. *Medications to be reconciled using patient transfer 65 button. [facility] will fill medications through [facility]. CURRENT READMISSION RISK SCORE / HANDOFF: Predictive Risk Score Risk of Unplanned Readmission: 43.1 Handoff given: Oncology [facility] Nursing Staff Signed: BON Marx, RN, [facility] Hematology/Oncology Laminating Machine Offbearer Alpha Pager* [phone] hysical Therapy - Jose Felder SPT - 11/18/2020 11:40 AM CDT PHYSICAL THERAPY Acute Care Treatment Note RECOMMENDATIONS Assessment: Patient continues to progress towards goals . Silvina x1 for squat pivot transfers to chair/commode. Completed Sliding board transfer with assist for set up and CGA. Encouraged to transfer to chair with nsg for meals. Would continue to benefit from skilled PT upon discharge at a low intensitysetting. 6-Clicks Basic Mobility Score: 14 Daily activity prescription: Assist patient to chair 3 times per day for 30 to 60 minutes or for allmeals. Use Ax1-2 Encourage patients to do personal cares when sitting up. Anticipated D/C Service needs: Low intensity setting SUBJECTIVE Patient agreeable to therapy session. Pain: Pain in right index finger throughout session. OBJECTIVE Precautions: high risk hazardous medication, fall risk, pressure ulcer risk, contact precautions Observation: Resting in bed upon arrival Gait belt donned for all out of bed activity Vitals: 11/18/20 0820 BP: 108/58 Pulse: 66 Resp: 18 Temp: 97.6 F (36.4 C) SpO2: 99% Lab Results Component Value Date HEMOGLOBIN 9.3 (L) 11/18/2020 Functional Mobility: Bed mobility: two person boost at end of session Supine to Sit: modified independent bed rails Sit to Supine: minimal assistance for LE Squat Pivot: minimal assistance x2 Comments: Attempted SB transfer from bed to wc - assistance to place SB under bottom, CGA while patient completed multiple scoots across board - took multiple short rest breaks during transfer. Assistwith removing slide board after patient reached chair. Once in wc patient propelled self 150' with Silvina at times for steering with short rest breaks x3. Patient then SPT Silvina x1 to commode, dependent with charu cares, and SPT Silvina x1 to bed. Therapeutic Exercises: Completed bilat seated ex including: seated marching, resisted hip abduction/adduction, resisted knee flexion/extension Other: Patient resting in bed at end of session. Bedside table, call light, and phone in reach. Alarm on. Patient Education: Patient was educated on POC and SB transfer today through explanation. They accepted teaching and verbalized understanding. Interdisciplinary Communication: CM notified of session tolerance. Goals: Partially met PLAN Continue plan of care. Care will transition to TCU upon discharge. Treatment Today: Gait Training: minutes Therapeutic Exercise: 12 minutes Therapeutic Activity: 28 minutes TOTAL TIMED CODES: 40 minutes TREATMENT TOTAL TIME: 40 minutes EDNA Stephen Associated attestation - Mariah Hedrick PT - 11/18/2020 1:13 PM CDTThis practitioner was present and in the room for the entire session, guiding the student in servicedelivery. Documentation was edited and reviewed by this practitioner prior to signature application. Mariah Hedrick PT Alpha pager: [phone] Care Planning - Elian Amanda RN - 11/18/2020 3:00 AM CDT Problem: RISK FOR FALLS Goal: FALL PREVENTION BEHAVIOR Description: DEFINITION: Personal or family respiratory care specialist actions to minimize risk factors that might precipitate falls in the personal environment. 1=Never demonstrated, 2=Rarely demonstrated, 3=Sometimes demonstrated, 4=Often demonstrated, 5=Consistently demonstrated. Outcome: NOC Rating 5 Flowsheets (Taken 11/18/2020 025) Target Score: 5 Plan of care reviewed with: Patient Patient specific goal for the day: Patient will use call light appropriately and have assistance with out of bed activities. Patient specific goal for the stay: Patient will remain fall and injury free. Achieve goal for stay: By discharge Patient Progress: Patient has used the call light appropriately thus far during the shift. Bed alarmin place. Patient states she understands education and will ask for assistance with out of bed activities. are Planning - Zully Lopez, JESSICA - 11/17/2020 6:56 PM CDT Problem: DIARRHEA Goal: BOWEL ELIMINATION Description: Description: Formation and evacuation of stool. 1 = Severely compromised, 2 = Substantially compromised, 3 = Moderately compromised, 4 = Mildly compromised, 5 = Not compromised. Outcome: NOC Rating 4 Flowsheets (Taken 11/17/20201953) Plan of care reviewed with: Patient Patient specific goal for the day: pt will continue to receive meds for diarrhea Patient Progress: patient had two small loose stools this shift, continue on scheduled anti-diarrheal meds, will monitor. Occupational Therapy - Dipti Minaya OTR/Jason - 11/17/2020 4:18 PM CDT Occupational Therapy Acute Care Progress Note Impression/Recommendations Pt requires increased assistance with ADLs and functional transfers compared to baseline performance. Pt presents with overall deconditioning, decreased attention and often is self limiting. Pt will benefit from further inpatient therapies at a lower intensity therapy setting (I.e. ST-SNF, TCU, swing bed) in order to continue building strength and endurance while improving independence in ADLs and transfers. Objective Cognition:Alert. Oriented x self, , location, city, month and year; Often forgetful; Pt oftendemanding and self limiting asking therapist and staff to complete tasks for her that she can complete herself. Encouragement provided and educated on purpose of therapy is to improve her independence. ADLs: Feeding: Independent with items in reach Grooming: Set up assist while seated EOB Dressing: Max assist for LE dressing Toileting: Assist for hygiene/clothing management Transfers: Bed: Supine <> sit SBA Toilet: squat pivot transfer bed <> BSC mod assist Gait belt and walker used for all out of bed activity, ambulation/ transfer tasks for safety. Upon session completion, pt resting comfortably in bed with call light/ phone and tray table within reach. No questions/ concerns. Bed alarm activated. Pain: 0/10 Location: Pt denies pain throughout session Education Education/Training provided:Role of OT, plan of care,Safety strategies to utilize with functional transfers and ADL performance; Use of call light and importance of calling for assistance Learners:Patient Readiness: Acceptance Method of Training:Verbal education, demonstration Response:Verbalized/demonstrated understanding, will benefit from continued reinfocement Adaptive Equipment Recommendations To further assess Plan to obtain adaptive equipment: To further assess. Adaptive Equipment Available:toilet safety frame, hand held shower, extended tub bench, airline stewardess, wheelchair and front-wheeled walker Goals Patient/Family Stated Goal for Session:none stated though agreeable to OT Short Term Goals: Patient will tolerate 15-30 minutes U/E exercise to further increase independence with ADL/IADLs (ongoing) Patient will complete grooming task safely standing at the sink withSBAusing adaptive equipment as needed. (ongoing) Patient will complete LB dressing safely withSBAusing adaptive equipment as needed. (ongoing) Patient will complete toileting safely withSBAusing adaptive equipment as needed. (ongoing) Patient will complete functional transfers safely withSBAusing adaptive equipment as needed. (ongoing) Patient will further participate with cognitive assessment to increase safety with functional tasks.(ongoing) Patient will have AE in place to increase safety with ADLs by discharge(ongoing) Patient continues toslowlyprogress towards goals. 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 Severe diarrhea from a combination of short gut, chemoradiation, and antibiotic therapy Hypomagnesemia, replacing Hypophosphatemia, replacing PMH: T2DM, Diabetic ulcer of heel, HTN, Tobacco abuse, Iron deficiency, NSTEMI, Hx of colon cancer, s/p hemicolectomy with ileostomy, liver cancer s/p partial hepatic resection, COPD Recommendations: 1) Encourage intake of small, frequent(5-6)meals t/o the day Avoid food and drinks high in sugar Avoid caffeine 2) Encourage beverages between meals, not with meals or snacks 3)Add daily for micronutrient support in short bowel syndrome/malabsorption/wound healing ? Chewable MVIdaily ? Calcium + Vitamin D supplement ? If patient has had more than 100 cm of terminal ileum removed, monthly B-12 injections may be required and may need additional fat-soluble vitamins (A, D, E, K) ? Zinc and selenium related to chronic diarrhea 4)If diarrhea/malabsorption does not improve, consider supplemental parental nutrition ? Goal TPN to meet [id number] kcal, 80gm protein, 295lipid kcal, 885CHO kcal/day Malnutrition Summary Malnutrition Assessment Date: 11/11/20 Severe protein-calorie malnutrition Malnutrition Characteristics in the Context of Chronic Illness (greater than 3 months): Energy Intake: Less than or equal to 75% intake of estimated energy needs for greater than or equal to 1 month Severe Weight Loss: Greater than 20% in 1 year Subcutaneous Fat Loss: Moderate Muscle Loss: Moderate Interventions: Monitor oral intake/advance diet as tolerated;Supplement diet with ONS (oral nutrition supplements)/nutrient dense foods;Vitamin/mineral supplementation NUTRITION ASSESSMENT Anthropometrics: Height: 149.9 cm (4' 11") Admission Weight: Weight: 52.8 kg (116 lb 6.5 oz) as of 10/18/2020 per bed scale Most Recent Weight: Weight: 57 kg (125 lb 10.6 oz) (11/17/20 0529) per bed scale Lowest Weight Since Admission: 110 lb Weight Change: +9 lb since admission BMI: Body mass index is 25.38 kg/m. IBW: 45 kg %IBW: 117% (based on admit weight) Usual Body Weight: Unknown at this time Unintentional Weight Loss:Pt has lost 50 lb (30%) in <1 year AND 14 lb (11%) in 1 month, both clinically significant.Pt weighed ~180-190 lb in 2019, and has been losing weight since per EMR. Estimated Needs: 0401-7115 kcal/day(32-35kcal/kgUsing: Admission Weight) 65-80gm protein(1.3-1.5gm/kg Using:Admission Weight) Fluids per MD Estimated average intake over the last 2 days: 1340 kcal and 34 gm protein, which meets: 81 % of estimated kcal needs and 52 % of estimated protein needs. Intake Records: Intake Prior to Admit: Less than 75% of estimated energy requirements for greater than or equal to 1month Patient voices decreased intake d/t frequent diarrhea. She voices that she chronically has diarrhea,but that it has increased significantly since she started radiation 2 weeks ago. She voices normallyeating1-2mealsdaily, her main meal being in the evening with her family. Pt lives with her children.She voices that she has been trying to eat bananas and potatoes for extra potassium.She voices that her daughter bought her a bunch of different nutritional drinks but that she doesn't like them. Pt voices liking to drink water and 1 regular coke throughout the day. Lunch: sandwich (a bun with meat and cheese), or plain pasta with butter, salt and pepper Supper: meat (shrimp, roast) with mashed potatoes, or fettuccine magi pasta with shrimp Current Intake: Sub-optimal - met <75% of protein needs x 2 days, met kcal needs adequately. Had met < 50% of estimated energy requirements for greater than or equal to 6 days prior, and hadadequate intake for 13 days prior to that but likely malabsorbing given frequent diarrhea. Current Diet: Nutrition (From admission, onward) Start Ordered 11/15/20 1355 SNACKS Once info Comments: PM: (Mon/Wed/Fri/Sun) muffin - vary flavors PM: (Tu/urs/Sat) applesauce + cookie HS: cookie (vary) with cheese and club crackers 11/15/20 1351 11/15/20 0340 Diet per attending physician ONCE 11/15/20 0335 11/14/20 1810 Diet - Diabetic Now Question: Modified Diets Answer: Diabetic 11/14/20 1808 Physical Assessment: Edema: (per solar site assessment specialist at 0747 today) ? Generalized Edema Trace ? LUE Edema 3, Weeping ? RUE Edema 3, Weeping ? LLE Edema 1 ? RLE Edema 1 GI Assessment: ? Abdominal exam: Non-tender with Hyperactive bowel sounds, per solar site assessment specialist at 0747 today. ? Stool Frequency: 2-6x/day over the last 2 days Wounds/Pressure Points: (per solar site assessment specialist at 0747 today) ? Ankle Right ? Coccyx Blanchable Redness ? Elbow Left, Right, Blanchable Redness ? Heel Left, Right, Blanchable Redness Functional Status: PT Following OT Following Nutrition Focused Physical Exam: Completed by RD on 11/11/2020 Below the Eye (fat): Slightly dark circles, somewhat hollow look (mild-moderate) Oriental Orthodox (muscle): Slight depression (mild-moderate)(Moderate) Buccal (fat): Flat cheeks (moderate) Clavicle (muscle): Some protrusion of bone (mild-moderate)(Moderate) Shoulder (muscle)/Deltoid muscle: Acromion process slightly protrudes (mild-moderate)(Moderate) Ribs/Iliac Crest (fat): Ribs do not show, slight to no protrusion of iliac crest (Within Defined Limits)(Mild) Triceps/Biceps (fat): Some depth to pinch, but not ample (mild-moderate) Hand/Interosseous (muscle): Slightly depressed (mild-moderate) Thigh (muscle): Mild depression on inner thigh (mild-moderate)(Moderate - pt uses wheelchair primarily) Calf (muscle): Not well developed (mild-moderate)(Moderate - pt uses wheelchair primarily) Nutritionally-Relevant Medications, Vitamins and Minerals: Antibiotics, Lomotil, Glucotrol XL, CS Novolog, Creon, imodium, Thera-M, octreotide acetate, VitaminK, potassium chloride, sodium phosphates, warfarin Nutritionally-Relevant Biochemical Data: (11/17/2020) Glucose 123 H Phosphorus 2.0 L Albumin 1.7 L Allergies/Food Intolerance: Blair is allergic to penicillin; adhesives; bactericin [bacitracin]; cortisporin [egbvfofp-dttypffgu-eu]; hydrocortisone [cortizone]; levofloxacin; lincocin; medihoney ca alginate 2"x2" [alginate - carboxymethylcellulose - silver]; monistat [tioconazole]; septra [sulfameth oxazole w-trimethoprim]; silvadene [silver sulfadiazine]; silver picrate; soap; sodium acetate; sulfa drugs; sulfamethoxazole w-trimethoprim; tpn electrolytes ii [lypholyte]; and xeroform [bismuth tribromoph-petrolatum]. Culturally Pentecostalism Needs: no INTERVENTIONS Encouraged adequate calories and optimal protein in small, frequent meals and snacks Will send snacks and supplements BID EMR reviewed MONITORING/EVALUATION Monitor ability to consume and tolerate adequate intake to approximate estimated needs with accomodation of preferences and tolerances until intake is sustained within desirable limits Monitor I&O, weight trends, nutrition-related labs and medications, clinical status, and planof care r/t need for nutrition intervention and provide as warranted Nutrition Therapy will reassess every 1-[address], LRD Alpha Pager # [phone] Ext # [phone] Physical Therapy - Jose Felder, EDNA - 11/17/2020 2:52 PM CDT PHYSICAL THERAPY Acute Care Treatment Note RECOMMENDATIONS Assessment: Patient continues to progress towards goals . Silvina x1 for squat pivot transfers to chair/commode. Completed Sliding board transfer with assist for set up and CGA. Encouraged to transfer to chair with nsg for meals. Would continue to benefit from skilled PT upon discharge at a low intensitysetting. 6-Clicks Basic Mobility Score: 14 Daily activity prescription: Assist patient to chair 3 times per day for 30 to 60 minutes or for allmeals. Use Ax1-2 Encourage patients to do personal cares when sitting up. Anticipated D/C Service needs: Low intensity setting Anticipated Assistive Device needs: Ensure patient has w/c cushion at DC SUBJECTIVE Patient and nsg agreeable to therapy session. Pain: Reports discomfort in back and bottom, better with repositioning OBJECTIVE Precautions: high risk hazardous medication, fall risk, pressure ulcer risk, contact precautions Observation: resting in bed upon arrival - nsg present - just back from commode Gait belt donned for all out of bed activity Vitals: 11/17/20 1419 BP: 131/78 Pulse: 87 Resp: 18 Temp: 97.2 F (36.2 C) SpO2: 100% Lab Results Component Value Date HEMOGLOBIN 9.0 (L) 11/17/2020 Functional Mobility: Bed mobility: two person dependent boost at end of session Supine to Sit: modified independent bed rails Sit to Supine: modified independent bed rails Squat Pivot: minimal assistance x3 Comments: Trialed slided board transfer from bed to wheelchair - assistance to place sliding board under bottom, CGA while patient completed multiple scoots across board - took multiple short rest breaks during transfer. Assist with removing slide board after patient reached chair. Therapeutic Exercises: Completed bilat seated ex including: seated marching, resisted hip abduction/adduction, resisted knee flexion/extension Other: Patient resting in bed at end of session. Bedside table, call light, and phone in reach. Alarm on Patient Education: Patient was educated on POC & SB transfer today through explanation and demonstration. They accepted teaching and verbalized understanding. Interdisciplinary Communication: nsg present intermittently Goals: ongoing PLAN Continue plan of care. Treatment Today: Gait Training: minutes Therapeutic Exercise: 15 minutes Therapeutic Activity: 20 minutes TOTAL TIMED CODES: 35 minutes TREATMENT TOTAL TIME: 35 minutes EDNA Stephen Associated attestation - Mariah Hedrick PT - 11/17/2020 3:06 PM CDTThis practitioner was present and in the room for the entire session, guiding the student in servicedelivery. Documentation was edited and reviewed by this practitioner prior to signature application. Mariah Hedrick PT Alpha pager: [phone] Case Mgmt - Valery Shukla RN - 11/17/2020 12:13 PM CDTCASE MANAGEMENT / SOCIAL SERVICE TRANSITION PLAN - PROGRESS NOTE PLAN: Transition Options Being Explored Will Continue to Follow for Support and Progression Towards Final Transition Plan Transition to [facility] on Saturday 11/18- afternoon BARRIERS TO TRANSITION: Medical barriers:See below Other: Cost of IV antibiotics- Ertapenem and Daptomycin daily Monitor diarrhea IV Cefepime twice a day and IV Vancomycin daily Potassium chloride 20 mEq at 50 ml/hr Radiation completed to pancreas Radiation to lung started- 5 treatments every other day until 11/18- 3/5 treatments PT/OT following 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 Burgos Octreotide 200 mcg injection every eight hours- will need to continue upon discharge to [facility] Bed- unless diarrhea improves Tunneled PICC line placed by IR on 11/14 DOES ACCEPTING FACILITY REQUIRE COVID TESTING BEFORE DISCHARGE: Needs one negative test within 24-48 hours COMMENTS / PATIENT AND FAMILY RESPONSE TO PLAN: EMR reviewed and plan of care discussed with digital imaging specialist- Blair continues to receive IV antibiotics. Patient did have surgery on 10/24- right index finger amputation and tolerated this well. Radiation to right lung started today- will have total of five treatments- 4/5 treatments completed today. Continue to monitor ongoing stools- did have 2 stools yesterday- C. Diff is negative. Blair did get a PICC line tunneled by IR on 11/14- will need to get this removed by IR. Did update Olivia in admissions and they are able to accept Blair with this. Did contact Radiation Oncology to see if there was any possibility of receiving radiation earlier- she is scheduled at 2:20PM- Camilla valdivia check but schedule is full for Saturday. Anticipate she would not be able to discharge until around [id number] on Saturday. Olivia is going to check to see if a Saturday evening admission work or plan for Saturday. Olivia did contact telegraphic typewriter installer back and they would be able to accept Blair Saturday evening for admission. Did update patient's daughter Vanessa about discharge plan for Saturday. Anticipate she will be able to leave around 1600. Did visit with Blair at bedside to discuss transportation. She would prefer [facility] to transport if possible. Did leave a message for Vanessa. Blair is eager to get closer to home and will be able to see her grandchildren once she is at [facility]. Her last radiation treatment will be on Saturday afternoon. She was going to work with PT this afternoon. Confirmed IV antibiotic plan with Dr. Burgos- will need to continue for 4-6 weeks at least until 12/05/2020. No significant changes or concerns at this time. Plan will be to discharge on 11/[address] [facility]. Blair continues to work with PT/OT- has been sitting up in chair and remains up with assist of 1-2. COVID test will be collected. Dr. Thomas aware of the discharge for tomorrow afternoon. Medications to be reconciled and ordered as transfer medications- using 65 button. 11/08- Updates sent via Fluid-1. [facility]- they received a cost estimate for IV antibiotics and will not be able to offer a bed due to this. [facility] [place]- remains full and no bed available. [facility] is not able to offer. [facility] in [place] is considering and requested nursing notes be sent over. Did sent update to [facility]- they are able to offer a bed- patient does not have transportation available to and from [facility]. Received call from [facility]- they are wondering if patient will need to continue Octreotide injections every eight hours- there is a drug shortage and they can see if this can be obtained priorto Blair admitting there. Did message Dr. Thomas and he anticipates that Blair will need to continue this upon discharge as her diarrhea is likely not going to improve. Did send update with this information to [facility]. They were able to locate a supply and have ordered a couple weeks for patient when she is able to transition there. 11/08- Update provided to patient's daughter- Vanessa at [phone]- gave update that placement has notbeen found in [place] yet and [facility] is unable to accept due to cost of IV antibiotics.. Patient stated that she anticipated she would be here to complete rest of radiation when she spoke with Dr. Thomas yesterday. Radiation and lack of transportation is main barrier along with cost of medication. Update provided to Dr. Thomas that placement has not been found yet. [place] [facility] is approved and faxed to [phone]. Patient did not have any other questions for at this time. IS PATIENT'S ADMISSION ASSOCIATED WITH TIA, ISCHEMIC, OR HEMORRHAGIC STROKE?: No PATIENT / SUBSTITUTE DECISION MAKER GOAL UPON TRANSITION: First Choice: PICC Line Swing Bed Transitional Care IV Antibiotics ANTICIPATED NEEDS UPON TRANSITION: PICC Line Swing Bed Transitional Care IV Antibiotics RESOURCE(S) PROVIDED: Placement and Transportation ANTICIPATED MODE OF TRANSPORT UPON TRANSITION: [employer] Wheelchair (P:[phone]) [employer] Wheelchair (P: [phone]) [employer] Wheelchair (P: [phone]) ANTICIPATED MODE OF TRANSPORT TO AND FROM FOLLOW UP APPOINTMENTS: As arranged by accepting facility Family Car VERIFIED CORRECT PHARMACY IS ENTERED FOR DISCHARGE: No Will verify once discharge destination is determined Medications will be reconciled using patient transfer "65 button"- [facility]ing Bed will use hospital pharmacy for medication administration TRANSITION ROUNDING COMPLETED WITH THE FOLLOWING: Patient / family Laminating Machine Offbearer Attending MD Moreno RN Discussed via telephone SIGNED: BON Marx, RN, PCCN-K, [facility] Hematology/Oncology Laminating Machine Offbearer Alpha Pager* [phone] are Planning - Elian Amanda RN - 11/17/2020 2:04 AM CDT Problem: RISK FOR FALLS Goal: FALL PREVENTION BEHAVIOR Description: DEFINITION: Personal or family respiratory care specialist actions to minimize risk factors that might precipitate falls in the personal environment. 1=Never demonstrated, 2=Rarely demonstrated, 3=Sometimes demonstrated, 4=Often demonstrated, 5=Consistently demonstrated. Outcome: NOC Rating 5 Flowsheets (Taken 11/17/2020 0202) Target Score: 5 Plan of care reviewed with: Patient Patient specific goal for the day: Patient will use call light appropriately and have assistance with out of bed activities. Patient specific goal for the stay: Patient will remain fall and injury free. Achieve goal for stay: By discharge Patient Progress: Patient has used the call light appropriately thus far during the shift. Bed alarmin place. Patient states she understands education and will ask for assistance with out of bed activities. are Planning - Brittany Rubin RN - 11/16/2020 11:19 PM CDT Problem: RISK FOR FALLS Goal: FALL PREVENTION BEHAVIOR Description: DEFINITION: Personal or family respiratory care specialist actions to minimize risk factors that might precipitate falls in the personal environment. 1=Never demonstrated, 2=Rarely demonstrated, 3=Sometimes demonstrated, 4=Often demonstrated, 5=Consistently demonstrated. Outcome: NOC Rating 5 Flowsheets (Taken 11/16/2020 3652) Plan of care reviewed with: Patient Patient specific goal for the day: pt will use call light appropriately when needing to get out of bed Patient specific goal for the stay: Patient will remain fall and injury free. Achieve goal for stay: By discharge Patient Progress: Using call light appropriately this shift. Up to bedside commode with assit of two. Bed alarm and high fall risk precautions in place will continue to monitor. Occupational Therapy - Susu Moise OTR/L - 11/16/2020 4:21 PM CDTOT continues to follow patient. Attempted to see x2 this date. In AM, pt was in shower upon attempt.In PM, pt was OOR. Will follow up tomorrow as able/appropriate. YOUSUF MayR/Jason Pager #[phone] ase Mgmt - Valery Shukla RN - 11/16/2020 4:07 PM CDTCASE MANAGEMENT / SOCIAL SERVICE TRANSITION PLAN - PROGRESS NOTE PLAN: Transition Options Being Explored Will Continue to Follow for Support and Progression Towards Final Transition Plan Transition to [facility] on Saturday 11/18- afternoon BARRIERS TO TRANSITION: Medical barriers:See below Other: Cost of IV antibiotics- Ertapenem and Daptomycin daily Monitor diarrhea IV Cefepime twice a day and IV Vancomycin daily Potassium chloride 20 mEq at 50 ml/hr Radiation completed to pancreas Radiation to lung started- 5 treatments every other day until 11/18- 5 treatments PT/OT following 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 Burgos Octreotide 200 mcg injection every eight hours- will need to continue upon discharge to [facility]- unless diarrhea improves Tunneled PICC line placed by IR on 11/14 DOES ACCEPTING FACILITY REQUIRE COVID TESTING BEFORE DISCHARGE: Needs one negative test within 24-48 hours COMMENTS / PATIENT AND FAMILY RESPONSE TO PLAN: EMR reviewed and plan of care discussed with digital imaging specialist- Blair continues to receive IV antibiotics. Patient did have surgery on 10/24- right index finger amputation and tolerated this well. Radiation to right lung started today- will have total of five treatments- 4/5 treatments completed today. Continue to monitor ongoing stools- did have 1 stools yesterday- C. Diff is negative. Blair did get a PICC line tunneled by IR on 11/14- will need to get this removed by IR. Did update Olivia in admissions and they are able to accept Blair with this. Did contact Radiation Oncology to see if there was any possibility of receiving radiation earlier- she is scheduled at 2:20PM- Camilla valdivia check but schedule is full for Saturday. Anticipate she would not be able to discharge until around [phone] on Saturday. Olivia is going to check to see if a Saturday evening admission work or plan for Saturday. Olivia did contact telegraphic typewriter installer back and they would be able to accept Blair Saturday evening for admission. Did update patient's daughter Vanessa about discharge plan for Saturday. Anticipate she will be able to leave around 1600. Did visit with Blair at bedside to discuss transportation. She would prefer [facility] to transport if possible. Did leave a message for Vanessa. Blair is eager to get closer to home and will be able to see her grandchildren once she is at [facility]. Her last radiation treatment will be on Saturday afternoon. She was going to work with PT this afternoon. Confirmed IV antibiotic plan with Dr. Burgos- will need to continue for 4-6 weeks at least until 12/05/2020. No significant changes or concerns at this time. Plan will be to discharge on 11/18 to [facility]. Blair continues to work with PT/OT- has been sitting up in chair and remains up with assist of 1-2. 11/08- Updates sent via Fluid-1. Received response back from [facility]- they received a cost estimate for IV antibiotics and will not be able to offer a bed due to this. [facility]- remains full and no bed available. [facility] is not able to offer. [facility] in [place] is considering and requested nursing notes be sent over. Did sent update to [facility]- they are able to offer a bed- patient does not have transportation available to and from [facility]. Received call from [facility]- they are wondering if patient will need to continue Octreotide injections every eight hours- there is a drug shortage and they can see if this can be obtained priorto Blair admitting there. Did message Dr. Thomas and he anticipates that Blair will need to continue this upon discharge as her diarrhea is likely not going to improve. Did send update with this information to [facility]. They were able to locate a supply and have ordered a couple weeks for patient when she is able to transition there. 11/08- Update provided to patient's daughter- Vanessa at [phone]- gave update that placement has notbeen found in [place] yet and [facility] of IV antibiotics.. Patient stated that she anticipated she would be here to complete rest of radiation when she spoke with Dr. Thomas yesterday. Radiation and lack of transportation is main barrier along with cost of medication. Update provided to Dr. Thomas that placement has not been found yet. [place] [facility] is approved and faxed to [phone]. Patient did not have any other questions for CM at this time. IS PATIENT'S ADMISSION ASSOCIATED WITH TIA, ISCHEMIC, OR HEMORRHAGIC STROKE?: No PATIENT / SUBSTITUTE DECISION MAKER GOAL UPON TRANSITION: First Choice: PICC Line Swing Bed Transitional Care IV Antibiotics ANTICIPATED NEEDS UPON TRANSITION: PICC Line Swing Bed Transitional Care IV Antibiotics RESOURCE(S) PROVIDED: Placement and Transportation ANTICIPATED MODE OF TRANSPORT UPON TRANSITION: [employer] Wheelchair (P:[phone]) [employer] Wheelchair (P: [phone]) [employer] Wheelchair (P: [phone]) ANTICIPATED MODE OF TRANSPORT TO AND FROM FOLLOW UP APPOINTMENTS: As arranged by accepting facility Family Car VERIFIED CORRECT PHARMACY IS ENTERED FOR DISCHARGE: No Will verify once discharge destination is determined Medications will be reconciled using patient transfer "65 button"- [facility] will use hospital pharmacy for medication administration TRANSITION ROUNDING COMPLETED WITH THE FOLLOWING: Patient / family Laminating Machine Offbearer Attending MD digital imaging specialist Discussed via telephone SIGNED: BON Marx, RN, PCCN-K, [facility] Hematology/Oncology Laminating Machine Offbearer Alpha Pager* [phone] hysical Therapy - Jose Felder, SPT - 11/16/2020 3:38 PM CDT PHYSICAL THERAPY Acute Care Treatment Note RECOMMENDATIONS Assessment: Patient remains weak. Requires Silvina x1 for squat pivot transfers to chair - independentat baseline. Encouraged to transfer to chair x3 daily for meals. Would continue to benefit from skilled PT upon discharge at a low intensity setting. 6-Clicks Basic Mobility Score: 14 Daily activity prescription: Assist patient to chair 3 times per day for 30 to 60 minutes or for allmeals. Use Ax1-2 squat pivot transfer Encourage patients to do personal cares when sitting up. Anticipated D/C Service needs: Low intensity setting SUBJECTIVE Patient agreeable to therapy session. Pain: At rest: Patient reports no pain. With activity: Patient reports no pain. OBJECTIVE Precautions: high risk hazardous medication, fall risk, pressure ulcer risk, contact precautions Observation: resting in bed upon arrival Gait belt donned for all out of bed activity Vitals: 11/16/20 1411 BP: 97/59 Pulse: 74 Resp: 16 Temp: 97.3 F (36.3 C) SpO2: 97% Lab Results Component Value Date HEMOGLOBIN 8.8 (L) 11/16/2020 Functional Mobility: Bed mobility: modified independent bed rails Supine to Sit: modified independent bed rails Sit to Supine: modified independent bed rails Squat Pivot: minimal assistance Comments: SPT to chair - able to complete 50% of transfer with SBA, Silvina for last half and for seconds SPT back to bed. -- Plan to trial SB tomorrow into wheelchair. Therapeutic Exercises: Completed seated bilat LE ex including: seated marching, resisted hip abduction/adduction, resisted knee flexion/extension Other: Patient resting in bed at end of session. Bedside table, call light, and phone in reach. Alarm on. Patient Education: Patient was educated on POC today through explanation. They accepted teaching andverbalized understanding. Goals: Ongoing PLAN Continue plan of care. Treatment Today: Gait Training: minutes Therapeutic Exercise: minutes Therapeutic Activity: 25 minutes TOTAL TIMED CODES: 25 minutes TREATMENT TOTAL TIME: 25 minutes EDNA Stephen Associated attestation - Mariah Hedrick PT - 11/16/2020 3:46 PM CDTThis practitioner was present and in the room for the entire session, guiding the student in servicedelivery. Documentation was edited and reviewed by this practitioner prior to signature application. Mariah Hedrick PT Alpha pager: [phone] Sydnie - Zully Lopez RN - 11/16/2020 2:53 PM CDT Problem: DIARRHEA Goal: BOWEL ELIMINATION Description: Description: Formation and evacuation of stool. 1 = Severely compromised, 2 = Substantially compromised, 3 = Moderately compromised, 4 = Mildly compromised, 5 = Not compromised. Outcome: NOC Rating 4 Flowsheets (Taken 11/16/2020 2804) Plan of care reviewed with: Patient Patient specific goal for the day: pt will continue to receive meds for diarrhea Patient Progress: patient continue to have loose stools this shift. on scheduled anti-diarrheal meds, will monitor. justus Otoole - Briseida Mendez RN - 11/16/2020 12:09 AM CDT Problem: RISK FOR FALLS Goal: FALL PREVENTION BEHAVIOR Description: DEFINITION: Personal or family respiratory care specialist actions to minimize risk factors that might precipitate falls in the personal environment. 1=Never demonstrated, 2=Rarely demonstrated, 3=Sometimes demonstrated, 4=Often demonstrated, 5=Consistently demonstrated. Outcome: NOC Rating 3 Flowsheets (Taken 11/16/2020 0009) Initial Score: 3 Target Score: 5 Plan of care reviewed with: Patient Patient specific goal for the day: pt will use call light appropriately when needing to get out of bed Patient specific goal for the stay: Patient will remain fall and injury free. Achieve goal for stay: By discharge Patient Progress: Using call light appropriately this shift, Alert and orientated x4, Bed alarm in place, Will continue to monitor. ccupational Therapy - Dipti Minaya, OTR/L - 11/15/2020 4:06 PM CDTOT attempted x 2 this date. Pt busy with other disciplines on both attempts. OT to follow up as able/ appropriate 11/16/20. hysical Therapy - Jose Felder SPT - 11/15/2020 3:18 PM CDT PHYSICAL THERAPY Acute Care Treatment Note RECOMMENDATIONS Assessment: Patient remains weak. Requires Min/ModA x1 for squat pivot transfers to commode - independent at baseline. Encouraged to transfer to chair x3 daily for meals. Would continue to benefit fromskilled PT upon discharge at a low intensity setting. 6-Clicks Basic Mobility Score: 14 Daily activity prescription: Assist patient to chair 3 times per day for 30 to 60 minutes or for allmeals. Use Ax1-2 squat pivot transfer Encourage patients to do personal cares when sitting up. Anticipated D/C Service needs: Low intensity setting SUBJECTIVE Patient agreeable to therapy session. Seated ex only - declined OOB activity due to fatigue. Pain: Reports discomfort in back - better with repositioning. Discomfort of right index finger OBJECTIVE Precautions: high risk hazardous medication, fall risk, pressure ulcer risk, contact precautions Observation: resting in bed upon arrival Gait belt donned for all out of bed activity Vitals: 11/15/20 1400 BP: 118/62 Pulse: 69 Resp: 16 Temp: 97.3 F (36.3 C) SpO2: 100% Lab Results Component Value Date HEMOGLOBIN 10.0 (L) 11/15/2020 Functional Mobility: Bed mobility: two person boost at end of session Supine to Sit: modified independent bed rails and HOB elevated Sit to Supine: minimal assistance assist with LE Comments: Declined OOB transfers today due to fatigue Therapeutic Exercises: Completed seated bilat LE ex including: seated marching, resisted hip abduction/adduction, resisted knee flexion/extension Other: Patient resting in bed at end of session. Bedside table, call light, and phone in reach. Alarm on. Daughter present. Patient Education: Patient was educated on POC today through explanation. They accepted teaching andverbalized understanding. Goals: Ongoing PLAN Continue plan of care. Treatment Today: Gait Training: minutes Therapeutic Exercise: 18 minutes Therapeutic Activity: minutes TOTAL TIMED CODES: 18 minutes TREATMENT TOTAL TIME: 18 minutes LUCAS Stephen Associated attestation - Mariah Hedrick PT - 11/15/2020 3:37 PM CDTThis practitioner was present and in the room for the entire session, guiding the student in servicedelivery. Documentation was edited and reviewed by this practitioner prior to signature application. Mariah Hedrick PT Alpha pager: [phone] Case Mgmt - Valery Shukla RN - 11/15/2020 3:16 PM CDTCASE MANAGEMENT / SOCIAL SERVICE TRANSITION PLAN - PROGRESS NOTE PLAN: Transition Options Being Explored Will Continue to Follow for Support and Progression Towards Final Transition Plan BARRIERS TO TRANSITION: Awaiting Placement: Detention/Swing Bed/TCU Medical barriers:See below Other: Cost of IV antibiotics- Ertapenem and Daptomycin daily Monitor diarrhea IV Cefepime twice a day and IV Vancomycin daily Potassium chloride 20 mEq at 50 ml/hr Radiation completed to pancreas Radiation to lung started- 5 treatments every other day until 11/18- 3/5 treatments PT/OT following 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 Burgos Octreotide 200 mcg injection every eight hours- will need to continue upon discharge to [facility]- unless diarrhea improves Central line placed yesterday by IR DOES ACCEPTING FACILITY REQUIRE COVID TESTING BEFORE DISCHARGE: Needs one negative test within 24-48 hours COMMENTS / PATIENT AND FAMILY RESPONSE TO PLAN: EMR reviewed and plan of care discussed with digital imaging specialist- Blair continues to receive IV antibiotics. Patient did have surgery on 10/24- right index finger amputation and tolerated this well. Radiation to right lung started today- will have total of five treatments- 3/5 treatments completed yesterday. Continue to monitor ongoing stools- did have 1 stools yesterday- C. Diff is negative. Blair did get a central line placed yesterday by IR. Did send updated notes to [facility] and left message for Olivia in admissions. Did receive call back this afternoon and they are able to accept her with a central line. Did contact Radiation Oncology to see if there was any possibility of receiving radiation earlier- she is scheduled at 2:20PM- Camilla did check but schedule is full for Saturday. Anticipate she would not be able to discharge until around [phone] on Saturday. Olivia is going to check to see if a Saturday evening admission work or plan for Saturday. Olivia did contact telegraphic typewriter installer back and they would be able to accept Blair Saturday evening for admission. Will set transportation up for around 1600 on Saturday and will update patient, Dr. Thomas, and daughter Vanessa about discharge plan. Confirmed IV antibiotic plan with Dr. Burgos- will need to continue for 4-6 weeks at least until 12/05/2020. No significant changes or concerns at this time. Plan will be to discharge on 11/[address] [facility]. Blair continues to work with PT/OT- has been sitting up in chair and remains up with assist of 1-2. 11/08- Updates sent via Fluid-1. Received response back from [facility]- they received a cost estimate for IV antibiotics and will not be able to offer a bed due to this. [facility]- remains full and no bed available. [facility] is not able to offer. [facility] in [place] is considering and requested nursing notes be sent over. Did sent update to [facility]- they are able to offer a bed- patient does not have transportation available to and from [facility]. Received call from [facility]- they are wondering if patient will need to continue Octreotide injections every eight hours- there is a drug shortage and they can see if this can be obtained priorto Blair admitting there. Did message Dr. Thomas and he anticipates that Blair will need to continue this upon discharge as her diarrhea is likely not going to improve. Did send update with this information to [facility]. They were able to locate a supply and have ordered a couple weeks for patient when she is able to transition there. 11/08- Update provided to patient's daughter- Vanessa at [phone]- gave update that placement has notbeen found in [place] yet and [facility] due to cost of IV antibiotics.. Patient stated that she anticipated she would be here to complete rest of radiation when she spoke with Dr. Thomas yesterday. Radiation and lack of transportation is main barrier along with cost of medication. Update provided to Dr. Thomas that placement has not been found yet. [facility] is approved. Patient did not have any other questions for CM at this time. IS PATIENT'S ADMISSION ASSOCIATED WITH TIA, ISCHEMIC, OR HEMORRHAGIC STROKE?: No PATIENT / SUBSTITUTE DECISION MAKER GOAL UPON TRANSITION: First Choice: PICC Line Swing Bed Transitional Care IV Antibiotics ANTICIPATED NEEDS UPON TRANSITION: PICC Line Swing Bed Transitional Care IV Antibiotics RESOURCE(S) PROVIDED: Placement and Transportation ANTICIPATED MODE OF TRANSPORT UPON TRANSITION: [employer] Wheelchair (P:[phone]) [employer] Wheelchair (P: [phone]) [employer] Wheelchair (P: [phone]) ANTICIPATED MODE OF TRANSPORT TO AND FROM FOLLOW UP APPOINTMENTS: As arranged by accepting facility Family Car VERIFIED CORRECT PHARMACY IS ENTERED FOR DISCHARGE: No Will verify once discharge destination is determined Medications will be reconciled using patient transfer "65 button"- [facility] will use hospital pharmacy for medication administration TRANSITION ROUNDING COMPLETED WITH THE FOLLOWING: Patient / family Laminating Machine Offbearer Attending digital imaging specialist Discussed via telephone SIGNED: BON Marx, RN, PCCN-K, [facility] Hematology/Oncology Laminating Machine Offbearer Alpha Pager* [phone] are Planning - Yenni Choudhary RN - 11/15/2020 2:06 PM CDT Problem: RISK FOR FALLS Goal: FALL PREVENTION BEHAVIOR Description: DEFINITION: Personal or family respiratory care specialist actions to minimize risk factors that might precipitate falls in the personal environment. 1=Never demonstrated, 2=Rarely demonstrated, 3=Sometimes demonstrated, 4=Often demonstrated, 5=Consistently demonstrated. Flowsheets (Taken 11/15/2020 1403) Plan of care reviewed with: Patient Patient specific goal for the day: pt will use call light appropriately when needing to get out of bed Patient specific goal for the stay: Patient will remain fall and injury free. Achieve goal for stay: By discharge Patient Progress: pt using call light appropriately this shift. pt alert and oriented and using calllight appropriately. bed alarm in use .will monitor. are Planning - Darline Macario RD - 11/15/2020 2:05 PM CDT Problem: IMBALANCED NUTRITION: LESS THAN BODY REQUIREMENTS Goal: NUTRITIONAL STATUS: NUTRIENT INTAKE Description: DEFINITION: Nutrient intake to meet metabolic needs. 1=Not adequate, 2=Slightly adequate, 3=Moderately adequate, 4=Substantially adequate, 5=Totally adequate. Outcome: NOC Rating 2 Flowsheets (Taken 11/15/2020 1403) Plan of care reviewed with: Patient Patient specific goal for the day: Pt to consume 75% of 2-3 meals/snacks Patient specific goal for the stay: Meet >75% of nutrition needs Patient Progress: Pt endorses fair appetite. Stooling appears to have slightly improved over the past 3 days with 1-2 BMs/day documented. Pt has met less than or equal to 50% of estimated energy requirements for greater than or equal to 6 days. Previously, adequate x 13 days but likely malabsorbing given frequent diarrhea. May need to consider TPN with possible malabsorption. Adjusted snacks per pt preference. 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 Chewable MVIdaily ? Calcium + Vitamin D supplement ? If patient has had more than 100 cm of terminal ileum removed, monthly B-12 injections may be required and may need additional fat-soluble vitamins (A, D, E, K) ? Zinc and selenium related to chronic diarrhea 4)If diarrhea/malabsorption does not improve, consider supplemental parental nutrition ? Goal TPN to meet [id number] kcal, 80gm protein, 295lipid kcal, 885CHO kcal/day Malnutrition Summary Malnutrition Assessment Date: 11/11/20 Severe protein-calorie malnutrition Malnutrition Characteristics in the Context of Chronic Illness (greater than 3 months): Energy Intake: Less than or equal to 75% intake of estimated energy needs for greater than or equal to 1 month Severe Weight Loss: Greater than 20% in 1 year Subcutaneous Fat Loss: Moderate Muscle Loss: Moderate Interventions: Monitor oral intake/advance diet as tolerated;Supplement diet with ONS (oral nutrition supplements)/nutrient dense foods;Vitamin/mineral supplementation NUTRITION ASSESSMENT Pt endorses continued good appetite, noted eating 50-100% of meals. Pt was briefly NPO on 11/14. Pt states her daughter brought in probiotic yogurt for her to be kept in the unit refrigerator, however it was thrown away on day 3 d/t unit protocol. Pt has thus not been taking this. Pt does not like the probiotic yogurt at this facility and does not wish to have it sent. Adjusted snacks today per pt preference and explained/reviewed the diabetic menu as pt was uncertain of how many carbs she was allowed at meals. Pt has had 1-2 BM per day over the past 3 days per I/O documentation, which is some improvement. Patient started lung radiation 11/09. Plan to transition to [facility] when radiation is done, ~11/18. Anthropometrics: Height: 149.9 cm (4' 11") Admission Weight: Weight: 52.8 kg (116 lb 6.5 oz) as of 10/18/2020 per bed scale Most Recent Weight: Weight: 57.8 kg (127 lb 6.8 oz) (11/14/20 0131) per bed scale Lowest Weight Since Admission: 110 lb Weight Change: +5 kg (11 lb) since admission, +13.6 L fluid since admission BMI: Body mass index is 25.74 kg/m. IBW: 45 kg %IBW: 117% (based on admit weight) Usual Body Weight: Unknown at this time Unintentional Weight Loss:Pt has lost 50 lb (30%) in <1 year AND 14 lb (11%) in 1 month, both clinically significant.Pt weighed ~180-190 lb in 2019, and has been losing weight since per EMR. Estimated Needs: 5451-7175 kcal/day(30-35kcal/kgUsing: Admission Weight) 65-80gm protein(1.3-1.5gm/kg Using:Admission Weight) Fluids per MD Estimated average intake over the last 4 days: 357 kcal and 18 gm protein, which meets: 25 % of estimated kcal needs and 28 % of estimated protein needs. Pt was NPO for part of the day on 11/14. Intake Records: Intake Prior to Admit: Less than 75% of estimated energy requirements for greater than or equal to 1month Patient voices decreased intake d/t frequent diarrhea. She voices that she chronically has diarrhea,but that it has increased significantly since she started radiation 2 weeks ago. She voices normallyeating1-2mealsdaily, her main meal being in the evening with her family. Pt lives with her children.She voices that she has been trying to eat bananas and potatoes for extra potassium.She voices that her daughter bought her a bunch of different nutritional drinks but that she doesn't like them. Pt voices liking to drink water and 1 regular coke throughout the day. Lunch: sandwich (a bun with meat and cheese), or plain pasta with butter, salt and pepper Supper: meat (shrimp, roast) with mashed potatoes, or fettuccine magi pasta with shrimp Current Intake: Less than or equal to 50% of estimated energy requirements for greater than or equalto 6 days. Previously, adequate x 13 days but likely malabsorbing given frequent diarrhea. Current Diet: Nutrition (From admission, onward) Start Ordered 11/15/20 0340 Diet per attending physician ONCE 11/15/20 0335 11/14/20 1810 Diet - Diabetic Now Question: Modified Diets Answer: Diabetic 11/14/20 1808 11/13/20 0920 CONTINUE DIET ORDERED (PANEL - NPO AFTER MIDNIGHT/CONTINUE DIET ORDERED) ONCE Comments: Patient to remain on previously ordered diet. Call if one is not available. 11/13/20 0919 11/11/20 1630 SNACKS Once info Comments: PM: (Mon/Sat/Fri/Sun) muffin - vary flavors PM: (//Sat) rice pudding HS: cookie (vary) with cheese and club crackers 11/11/20 1626 10/24/20 1950 ADVANCE DIET TOLERATED ONCE 10/24/20 1948 10/19/20 1700 Supplement [facility]; Boost Breeze BID BID Comments: Please add water to drink to mute flavor. Give supplement cold with medications twice a day. The supplement is an intervention for identified nutrition risk factors. * Do not give if patient is NPO (unless the orders specify NPO with supplement) or if medication should not be given with food. Question Answer Comment Location [facility] Dietary Supplement Boost Breeze 10/19/20 1232 10/19/20 1700 Supplement [facility]; Supplement per RD BID BID Comments: Banana flakes/Banatrol (located in pt's room): mix in pudding or applesauce BID to help thicken stools. Question Answer Comment Location [facility] Dietary Supplement Supplement per RD 10/19/20 1234 Physical Assessment: Edema: (per solar site assessment specialist at 0000 today) ? Generalized Edema None ? LUE Edema 2 ? RUE Edema 2 ? LLE Edema 1 ? RLE Edema 1 GI Assessment: ? Abdominal exam: Non-tender and hernia with Present bowel sounds, per solar site assessment specialist at 0000 today. ? Stool Frequency: 1-4x/day over the last 4 days Wounds/Pressure Points: (per solar site assessment specialist at 0000 today) ? Ankle Open with red/yellow wound bed ? Coccyx Blanchable Redness ? Elbow Blanchable Redness ? Back Scab to left lower back ? Heel Blanchable Redness ? Hip Open with red/yellow wound bed Functional Status: PT Following OT Following Nutrition Focused Physical Exam: Completed by RD on 11/11/20 Below the Eye (fat): Slightly dark circles, somewhat hollow look (mild-moderate) Oriental Orthodox (muscle): Slight depression (mild-moderate)(Moderate) Buccal (fat): Flat cheeks (moderate) Clavicle (muscle): Some protrusion of bone (mild-moderate)(Moderate) Shoulder (muscle)/Deltoid muscle: Acromion process slightly protrudes (mild-moderate)(Moderate) Ribs/Iliac Crest (fat): Ribs do not show, slight to no protrusion of iliac crest (Within Defined Limits)(Mild) Triceps/Biceps (fat): Some depth to pinch, but not ample (mild-moderate) Hand/Interosseous (muscle): Slightly depressed (mild-moderate) Thigh (muscle): Mild depression on inner thigh (mild-moderate)(Moderate - pt uses wheelchair primarily) Calf (muscle): Not well developed (mild-moderate)(Moderate - pt uses wheelchair primarily) Nutritionally-Relevant Medications, Vitamins and Minerals: Warfarin, dulcolax, dilaudid, SSI, creon, TID w/ meals, imodium, thera-M, zofran, vitamin K, potassium chloride, compazine, senna, Nutritionally-Relevant Biochemical Data: (11/15/2020) Glucose 265 H Phosphorus 1.9 L Albumin 1.9 L Allergies/Food Intolerance: Blair is allergic to penicillin; adhesives; bactericin [bacitracin]; cortisporin [tbmnoelq-hkjgwugae-jm]; hydrocortisone [cortizone]; levofloxacin; lincocin; medihoney ca alginate 2"x2" [alginate - carboxymethylcellulose - silver]; monistat [tioconazole]; septra [sulfameth oxazole w-trimethoprim]; silvadene [silver sulfadiazine]; silver picrate; soap; sodium acetate; sulfa drugs; sulfamethoxazole w-trimethoprim; tpn electrolytes ii [lypholyte]; and xeroform [bismuth tribromoph-petrolatum]. Culturally Pentecostalism Needs: NA INTERVENTIONS Encouraged adequate calories and optimal protein in small, frequent meals and snacks Will send snacks and supplements BID EMR reviewed MONITORING/EVALUATION Monitor ability to consume and tolerate adequate intake to approximate estimated needs with accomodation of preferences and tolerances until intake is sustained within desirable limits Monitor I&O, weight trends, nutrition-related labs and medications, clinical status, and planof care r/t need for nutrition intervention and provide as warranted Nutrition Therapy will reassess every 1-3 days Darline Macario MS, RDN, LRD Pager #[phone] are Planning - Shala Ritchie RN - 11/14/2020 11:17 PM CDT Problem: DIARRHEA Goal: BOWEL ELIMINATION Description: Description: Formation and evacuation of stool. 1 = Severely compromised, 2 = Substantially compromised, 3 = Moderately compromised, 4 = Mildly compromised, 5 = Not compromised. Outcome: NOC Rating 3 Flowsheets (Taken 11/14/20202313) Plan of care reviewed with: Patient Patient specific goal for the day: pt will continue to receive meds for diarrhea Patient Progress: patient having loose stools this shift. anti-diarrheal meds admin. will monitor. Problem: RISK FOR INFECTION Goal: INFECTION SEVERITY Description: DEFINITION: Severity of signs and symptoms of infection. 1 = Severe, 2 = Substantial, 3 = Moderate, 4 = Mild, 5 = None. Outcome: NOC Rating 3 Flowsheets (Taken 11/14/20202313) Plan of care reviewed with: Patient Patient specific goal for the day: patient will communicate to nurse signs/ symptoms of infection Patient Progress: patient continues on IV abx. ID following. patient denying chills or fever. will monitor. Problem: RISK FOR FALLS Goal: FALL PREVENTION BEHAVIOR Description: DEFINITION: Personal or family respiratory care specialist actions to minimize risk factors that might precipitate falls in the personal environment. 1=Never demonstrated, 2=Rarely demonstrated, 3=Sometimes demonstrated, 4=Often demonstrated, 5=Consistently demonstrated. Flowsheets (Taken 11/14/20202313) Plan of care reviewed with: Patient Patient specific goal for the day: pt will use call light appropriately when needing to get out of bed Patient Progress: pt using call light appropriately this shift. pt alert and oriented and using calllight appropriately. bed alarm in use .will monitor. Clinical Team - Shala Ritchie RN - 11/14/2020 10:30 PM CDTNew CVC has had blood pooling around insert site. Old blood recognized at shift change. No new bloodpresent. Monitoring closely to ensure no new blood present. Upon assessment just now, it was found that the securement device was not in place and not secured down. Float nurse called to come and assess and change dressing. Will monitor. ccupational Therapy - Dipti Minaya, OTR/L - 11/14/2020 5:02 PM CDT Occupational Therapy Acute Care Progress Note Impression/Recommendations Pt requires increased assistance with ADLs and functional transfers compared to baseline performance. Pt presents with overall deconditioning, decreased attention and often is self limiting. Pt will benefit from further inpatient therapies at a lower intensity therapy setting (I.e. ST-SNF, TCU, swingbed) in order to continue building strength and endurance while improving independence in ADLs and transfers. Objective Cognition: Alert. Oriented x self, , location, city, month and year; Often forgetful; Pt often demanding and self limiting asking therapist and staff to complete tasks for her that she can completeherself. Encouragement provided and educated on purpose of therapy is to improve her independence. U/E: Pt tolerated B UE strengthening exercises using 1# free weight to R UE and 2 # free weight to L UE while in supine for 10-15 reps through each plane of movement to help increase strength and endurance to aid in independence with ADLs and transfers. Pt required AAROM to R shoulder due to proximalweakness and reported discomfort with weight. Pt completed R hand exercises (6 pack exercises) x 10 reps. Pt demo's recall from previous OT sessions and states she has been completing independently. Oxygen Level: >90% throughout session ADLs: Feeding: Not observed Grooming: Set up assist while seated EOB Dressing: Max assist LE dressing; Mod assist donning/doffing [facility] gown Toileting: Not observed Transfers: Bed: Supine <> sit min assist - declined OOB activity despite encouragement provided stating she had recently returned to bed. Upon session completion, pt resting comfortably in bed with call light/ phone and tray table within reach. No questions/ concerns. Bed alarm activated. Pain: 0/10 Location: Pt denies pain throughout session Education Education/Training provided: Role of OT, plan of care, Safety strategies to utilize with functional transfers and ADL performance; UE exercise technique/speed and reasoning for exercises; Use of call light and importance of calling for assistance Learners: Patient Readiness: Acceptance Method of Training: Verbal education, demonstration Response: Verbalized/demonstrated understanding, will benefit from continued reinfocement Adaptive Equipment Recommendations To further assess Plan to obtain adaptive equipment: To further assess. Adaptive Equipment Available:toilet safety frame, hand held shower, extended tub bench, airline stewardess, wheelchair and front-wheeled walker Goals Patient/Family Stated Goal for Session:none stated though agreeable to OT Short Term Goals: Patient will tolerate 15-30 minutes U/E exercise to further increase independence with ADL/IADLs (ongoing) Patient will complete grooming task safely standing at the sink withSBAusing adaptive equipment as needed. (ongoing) Patient will complete LB dressing safely withSBAusing adaptive equipment as needed. (ongoing) Patient will complete toileting safely withSBAusing adaptive equipment as needed. (ongoing) Patient will complete functional transfers safely withSBAusing adaptive equipment as needed. (ongoing) Patient will further participate with cognitive assessment to increase safety with functional tasks.(ongoing) Patient will have AE in place to increase safety with ADLs by discharge(ongoing) Patient continues toslowlyprogress towards goals. Charges Treatment/Minutes: Today's Evaluation/Treatment Self care/home management: 10 minutes Therapeutic exercise: 15 minutes Total Treatment Time: 25 minutes Treatment Session 07/10 Weekly Assessment/Plan (Day 5): Continue OT POC as appropriate Therapist Alpha Pager Number [phone] PostOp Progress Note - Compa Medrano MD - 11/14/2020 5:00 PM CDTImmediate Post-Operative / Post Procedure Progress Note Interventional Radiologist: Compa Medrano MD Pre-Operative Diagnosis: LUE Pericatheter DVT, Dysfunctional left arm PICC, central venous occlusion Post-Operative Diagnosis: Same as pre-operative diagnosis. Anesthesia Type: Moderate sedation & local Interventional Procedure: SVC venogram, recanalization of occluded SVC with 8 mm and 10 mm balloon angioplasty, tunneled central venous catheter placement; removal left arm PICC Procedural Findings: See report Specimen: n/a Estimated Blood Loss: Less than 25 mL Tubes/Drains/Needle: n/a Complications: none Postoperative Condition: stable Sedation: The procedure was performed using moderate conscious sedation. The patient was monitored utilizing continuous pulse oximetry, continuous telemetry/bedside cardiac monitoring and intermittent blood pressure measurements throughout the procedure without notable aberration in vitals. Please seethe patients procedure log for further information. Physician start time: 1608 Physician stop time: 1658 oCmpa Medrano MD are Planning - Yuly Burgos RN - 11/14/2020 4:28 PM CDT Problem: RISK FOR FALLS Goal: FALL PREVENTION BEHAVIOR Description: DEFINITION: Personal or family respiratory care specialist actions to minimize risk factors that might precipitate falls in the personal environment. 1=Never demonstrated, 2=Rarely demonstrated, 3=Sometimes demonstrated, 4=Often demonstrated, 5=Consistently demonstrated. Outcome: NOC Rating 3 Flowsheets (Taken 11/14/2020 1626) Patient specific goal for the day: Patient will use call light appropriately when needing to get outof bed Patient Progress: Patient is using the call light appropriately this shift. Patient is alert and oriented. Patient has fall precautions in place, including bed alarm. Patient will continue to be monitored. ase Mgmt - Valery Shukla RN - 11/14/2020 3:36 PM CDTCASE MANAGEMENT / SOCIAL SERVICE TRANSITION PLAN - PROGRESS NOTE PLAN: Transition Options Being Explored Will Continue to Follow for Support and Progression Towards Final Transition Plan BARRIERS TO TRANSITION: Awaiting Placement: Detention/Swing Bed/TCU Medical barriers:See below Other: Cost of IV antibiotics- Ertapenem and Daptomycin daily Monitor diarrhea IV Cefepime twice a day and IV Vancomycin daily Potassium chloride 20 mEq at 50 ml/hr Radiation completed to pancreas Radiation to lung started- 5 treatments every other day until 11/18- 35 treatments PT/OT following 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 Burgos Octreotide 200 mcg injection every eight hours- will need to continue upon discharge to [facility]- unless diarrhea improves IR consult for PICC or Central Line Placement- thrombosis DOES ACCEPTING FACILITY REQUIRE COVID TESTING BEFORE DISCHARGE: Needs one negative test within 24-48 hours COMMENTS / PATIENT AND FAMILY RESPONSE TO PLAN: EMR reviewed and plan of care discussed with digital imaging specialist- Brittany. Blair continues to receive IV antibiotics. Patient did have surgery on 10/24- right index finger amputation and tolerated this well. Radiation to right lung started today- will have total of five treatments- 3/5 treatments today. Continue to monitor ongoing stools- did have 1 stools yesterday- C. Diff is negative. IR consult for PICC line evaluation/Central line placement- PICC has not been functioning- has hx ofSVC stenosis. Confirmed IV antibiotic plan with Dr. Burgos- will need to continue for 4-6 weeks at least until 12/05/2020. No significant changes or concerns at this time. Plan will be to discharge on 11/[address] [facility]. Blair continues to work with PT/OT- has been sitting up in chair and remains up with assist of 1-2. 11/08- Updates sent via Fluid-1. [facility] they received a cost estimate for IV antibiotics and will not be able to offer a bed due to this. [facility] [place]- remains full and no bed available. [facility] is not able to offer. [facility] in [place] is considering and requested nursing notes be sent over. Did sent update to [facility]- they are able to offer a bed- patient does not have transportation available to and from [facility]. Received call from [facility]- they are wondering if patient will need to continue Octreotide injections every eight hours- there is a drug shortage and they can see if this can be obtained priorto Blair admitting there. Did message Dr. Thomas and he anticipates that Blair will need to continue this upon discharge as her diarrhea is likely not going to improve. Did send update with this information to [facility]. They were able to locate a supply and have ordered a couple weeks for patient when she is able to transition there. 11/08- Update provided to patient's daughter- Vanessa at [phone]- gave update that placement has notbeen found in [place] yet and [facility] is unable to accept due to cost of IV antibiotics.. Patient stated that she anticipated she would be here to complete rest of radiation when she spoke with Dr. Thomas yesterday. Radiation and lack of transportation is main barrier along with cost of medication. Update provided to Dr. Thomas that placement has not been found yet. [place] [facility] is approved. Patient did not have any other questions for CM at this time. IS PATIENT'S ADMISSION ASSOCIATED WITH TIA, ISCHEMIC, OR HEMORRHAGIC STROKE?: No PATIENT / SUBSTITUTE DECISION MAKER GOAL UPON TRANSITION: First Choice: PICC Line Swing Bed Transitional Care IV Antibiotics ANTICIPATED NEEDS UPON TRANSITION: PICC Line Swing Bed Transitional Care IV Antibiotics RESOURCE(S) PROVIDED: Placement and Transportation ANTICIPATED MODE OF TRANSPORT UPON TRANSITION: [employer] Wheelchair (P:[phone]) [employer]. Wheelchair (P: [phone]) [employer] Wheelchair (P: [phone]) ANTICIPATED MODE OF TRANSPORT TO AND FROM FOLLOW UP APPOINTMENTS: As arranged by accepting facility Family Car VERIFIED CORRECT PHARMACY IS ENTERED FOR DISCHARGE: No Will verify once discharge destination is determined Medications will be reconciled using patient transfer "65 button"- [facility] Swing Bed will use hospital pharmacy for medication administration TRANSITION ROUNDING COMPLETED WITH THE FOLLOWING: Patient / family Laminating Machine Offbearer Attending MD Moreno RN Discussed via telephone SIGNED: BON Marx, RN, PCCN-K, [facility] Hematology/Oncology Laminating Machine Offbearer Alpha Pager* [phone] hysical Therapy - Jose Felder SPT - 11/14/2020 2:00 PM CDT PHYSICAL THERAPY Acute Care Treatment Note RECOMMENDATIONS Assessment: Patient remains weak. Requires Min/ModA x1 for squat pivot transfers to commode - independent at baseline. Encouraged to transfer to chair x3 daily for meals. Would continue to benefit fromskilled PT upon discharge at a ST low intensity. 6-Clicks Basic Mobility Score: 15 Daily activity prescription: Assist patient to chair 3 times per day for 30 to 60 minutes or for allmeals. Use Ax1-2 Encourage patients to do personal cares when sitting up. Anticipated D/C Service needs: Low intensity setting SUBJECTIVE Patient agreeable to therapy session. nsg present. Pain: Reports discomfort in her back, better with repositioning OBJECTIVE Precautions: high risk hazardous medication, fall risk, pressure ulcer risk, contact precautions Observation: sitting EOB with nsg on arrival Gait belt donned for all out of bed activity Vitals: 11/14/20 0842 BP: 118/65 Pulse: 65 Resp: 18 Temp: 97.2 F (36.2 C) SpO2: 95% Lab Results Component Value Date HEMOGLOBIN 9.3 (L) 11/14/2020 Functional Mobility: Bed mobility: modified independent Supine to Sit: modified independent Sit to Supine: modified independent or minimal assistance Silvina up to transfer cart Sit to/from Stand: moderate assistance Squat Pivot: minimal assistance Comments: Squat pivot to/from commode x2, dependent with charu cares due to IV on R hand. Assistancewith clothing management - multiple seated weight shifts side to side to don and doff pants. Squat pivot to transfer cart for radiation - ModA sit to stand to sit back on cart further, Silvina to lift legs onto cart. Therapeutic Exercises: Completed seated bilat LE ex including: seated marching, resisted hip abduction/adduction, resisted knee flexion/extension Other: Patient leaving for radiation with transport at end of session. Patient Education: Patient was educated on POC today through explanation. They accepted teaching andverbalized understanding. Interdisciplinary Communication: nsg present intermittently, notified of session tolerance - demonstrated 1 person squat pivot to commode. Goals: Ongoing PLAN Continue plan of care. Patient will continue to benefit from skilled therapy to increase independence with functional transfers and increase activity tolerance. Treatment Today: Gait Training: minutes Therapeutic Exercise: minutes Therapeutic Activity: 35 minutes TOTAL TIMED CODES: 35 minutes TREATMENT TOTAL TIME: 35 minutes EDNA Stephen Associated attestation - Mariah Hedrick PT - 11/14/2020 3:16 PM CDTThis practitioner was present and in the room for the entire session, guiding the student in servicedelivery. Documentation was edited and reviewed by this practitioner prior to signature application. Mariah Hedrick PT Alpha pager: [phone] Care Planning - Elian Amanda RN - 11/14/2020 3:21 AM CDT Problem: RISK FOR FALLS Goal: FALL PREVENTION BEHAVIOR Description: DEFINITION: Personal or family respiratory care specialist actions to minimize risk factors that might precipitate falls in the personal environment. 1=Never demonstrated, 2=Rarely demonstrated, 3=Sometimes demonstrated, 4=Often demonstrated, 5=Consistently demonstrated. Outcome: NOC Rating 5 Flowsheets (Taken 11/14/2020 0320) Target Score: 5 Plan of care reviewed with: Patient Patient specific goal for the day: Patient will use call light appropriately. Patient specific goal for the stay: Patient will remain fall and injury free. Patient Progress: Patient alert and oriented x4 although forgetful at times.Patient using call lightappropriately. Fall precautions remain in place including bed alarm. Kirsten Lopez RN - 11/13/2020 6:09 PM CDT Problem: RISK FOR FALLS Goal: FALL PREVENTION BEHAVIOR Description: DEFINITION: Personal or family respiratory care specialist actions to minimize risk factors that might precipitate falls in the personal environment. 1=Never demonstrated, 2=Rarely demonstrated, 3=Sometimes demonstrated, 4=Often demonstrated, 5=Consistently demonstrated. Flowsheets (Taken 11/13/2020 1806) Plan of care reviewed with: Patient Patient specific goal for the day: Patient will use call light appropriately. Patient specific goal for the stay: Patient will remain fall and injury free. Achieve goal for stay: By discharge Patient Progress: Patient using call light appropriately. Patient alert and oriented x4. Forgetful at times. Fall precautions remain in place. Will continue to monitor. Elian Grant RN - 11/13/2020 1:31 AM CDT Problem: RISK FOR FALLS Goal: FALL PREVENTION BEHAVIOR Description: DEFINITION: Personal or family respiratory care specialist actions to minimize risk factors that might precipitate falls in the personal environment. 1=Never demonstrated, 2=Rarely demonstrated, 3=Sometimes demonstrated, 4=Often demonstrated, 5=Consistently demonstrated. Outcome: NOC Rating 5 Flowsheets (Taken 11/13/2020 9678) Target Score: 5 Plan of care reviewed with: Patient Patient specific goal for the day: Patient will use call light appropriately. Patient specific goal for the stay: Patient will remain fall and injury free. Achieve goal for stay: By discharge Patient Progress: Patient has been using the call light appropriately. Patient reports understandingof the need to have assistance with out of bed activities. linical Team - Kirsten Dickens RN - 11/12/2020 8:02 PM CDTThis telegraphic typewriter installer delegated administration of alteplase in PICC line to JESSICA Nieves and JESSICA Bolden due to l ine being slugglish/inadequate blood return. Real Estate Investor removed 2 ml of blood after alteplase dwelled. Ngoc Maria MD notified. Received verbal order to contact contract negotiation specialist IR MD. This telegraphic typewriter installer spoke to on callIR MD. Ordered to plan IR consult for Saturday November 14, 2020 due to this situation being non-emergent. JESSICA Soto, CCL was made aware. Microclave placed on PICC line and labeled to not use. are Planning - Kirsten Dickens RN - 11/12/2020 6:07 PM CDT Problem: RISK FOR FALLS Goal: FALL PREVENTION BEHAVIOR Description: DEFINITION: Personal or family respiratory care specialist actions to minimize risk factors that might precipitate falls in the personal environment. 1=Never demonstrated, 2=Rarely demonstrated, 3=Sometimes demonstrated, 4=Often demonstrated, 5=Consistently demonstrated. Flowsheets (Taken 11/12/2020 1806) Plan of care reviewed with: Patient Patient specific goal for the day: Patient will use call light appropriately. Patient specific goal for the stay: Patient will be free from fall Achieve goal for stay: By discharge Patient Progress: Patient using call light appropriately this shift thus far. Patient alert and oriented but forgetful. Up with two to bedside commode. Fall precautions remain in place. Turning patientq2. Will continue to monitor. are Planning - Angelica Gaston RD - 11/11/2020 4:42 PM CDT Problem: IMBALANCED NUTRITION: LESS THAN BODY REQUIREMENTS Goal: NUTRITIONAL STATUS: NUTRIENT INTAKE Description: DEFINITION: Nutrient intake to meet metabolic needs. 1=Not adequate, 2=Slightly adequate, 3=Moderately adequate, 4=Substantially adequate, 5=Totally adequate. Outcome: NOC Rating 3 Flowsheets (Taken 11/11/2020 1545) Plan of care reviewed with: Patient Patient specific goal for the day: Pt to consume 75% of 2-3 meals/snacks Patient specific goal for the stay: Meet >75% of nutrition needs Achieve goal for stay: By discharge Patient Progress: Pt reported fair appetite today and continues eating the probiotic yogurt 1x/day brought in by pt's daughter. Noted wt up 9.9 kg but fluid up 13 L. Diarrhea slightly decreased the last 2 days. Will continue to monitor d/t possible issues with malabsorption and may need to consider TPN. Adjusted snacks per pt preference. ccupational Therapy - Dipti Minaya OTR/Jason - 11/11/2020 3:20 PM CDT Occupational Therapy Acute Care Progress Note Impression/Recommendations Pt requires increased assistance with ADLs and functional transfers compared to baseline performance. Pt presents with overall deconditioning, decreased attention and often is self limiting. Pt will benefit from further inpatient therapies at a lower intensity therapy setting (I.e. ST-SNF, TCU, swingbed) in order to continue building strength and endurance while improving independence in ADLs and transfers. Objective Cognition: Alert. Oriented x self, , location, city, month and year; pt often demanding and selflimiting asking therapist and staff to complete tasks for her that she can complete herself. Encouragement provided and educated on purpose of therapy is to improve her independence. U/E: Pt tolerated B UE strengthening exercises using 1# free weight to R UE and 2 # free weight to L UE while in supine for 10-15 reps through each plane of movement to help increase strength and endurance to aid in independence with ADLs and transfers. Pt required AAROM to R shoulder due to proximalweakness and reported discomfort with weight. Pt completed R hand exercises (6 pack exercises) x 10 reps. Pt demo's recall from previous OT sessions and states she has been completing independently. Oxygen Level: >90% throughout session ADLs: Feeding: Not observed Grooming: Set up assist while seated EOB Dressing: Max assist LE dressing Transfers: Bed: Supine <> sit min assist - declined OOB activity despite encouragement provided statingshe had recently returned to bed. Upon session completion, pt resting comfortably in bed with call light/ phone and tray table within reach. No questions/ concerns. Bed alarm activated. PCT present. Pain: 0/10 Location: Pt denies pain throughout session Education Education/Training provided: Role of OT, plan of care, Safety strategies to utilize with functional transfers and ADL performance; UE exercise technique/speed and reasoning for exercises; Use of call light and importance of calling for assistance Learners: Patient Readiness: Acceptance Method of Training: Verbal education, demonstration Response: Verbalized/demonstrated understanding, will benefit from continued reinfocement Adaptive Equipment Recommendations To further assess Plan to obtain adaptive equipment: To further assess. Adaptive Equipment Available:toilet safety frame, hand held shower, extended tub bench, airline stewardess, wheelchair and front-wheeled walker Goals Patient/Family Stated Goal for Session: none stated though agreeable to OT Short Term Goals: Patient will tolerate 15-30 minutes U/E exercise to further increase independence with ADL/IADLs (ongoing) Patient will complete grooming task safely standing at the sink withSBAusing adaptive equipment as needed. (ongoing) Patient will complete LB dressing safely withSBAusing adaptive equipment as needed. (ongoing) Patient will complete toileting safely withSBAusing adaptive equipment as needed. (ongoing) Patient will complete functional transfers safely withSBAusing adaptive equipment as needed. (ongoing) Patient will further participate with cognitive assessment to increase safety with functional tasks.(ongoing) Patient will have AE in place to increase safety with ADLs by discharge(ongoing) Patient continues to slowly progress towards goals. Charges Treatment/Minutes: Today's Evaluation/Treatment Self care/home management: 9 minutes Therapeutic exercise: 15 minutes Total Treatment Time: 24 minutes Treatment Session 06/04 Weekly Assessment/Plan (Day 5): Pt continues to require assist of 1 to 2 for ADLs and functional transfers. Pt is often self limiting and requesting assistance from staff for tasks she can be completing herself. Encouragement provided to increase independence. Pt tolerates UE exercises well - often requiring encouragement for participation. Pt will benefit from further inpatient therapies at a lower intensity therapy setting (i.e. ST-SNF, TCU, swing bed) in order to continue building strength and endurance while improving independence in ADL's and transfers. Continue OT POC as appropriate. Therapist Alpha Pager Number [phone] are Planning - Kirsten Dickens RN - 11/11/2020 3:08 PM CDT Problem: RISK FOR FALLS Goal: FALL PREVENTION BEHAVIOR Description: DEFINITION: Personal or family respiratory care specialist actions to minimize risk factors that might precipitate falls in the personal environment. 1=Never demonstrated, 2=Rarely demonstrated, 3=Sometimes demonstrated, 4=Often demonstrated, 5=Consistently demonstrated. Flowsheets (Taken 11/11/2020 1364) Plan of care reviewed with: Patient Patient specific goal for the day: Patient will use call light appropriately. Patient specific goal for the stay: Patient will be free from fall. Achieve goal for stay: By discharge Patient Progress: Patient using call light appropriately this shift thus far. Patient alert and oriented x4 but forgetful at times. Will continue to monitor. ase Mgmt - Valery Shukla, JESSICA - 11/11/2020 1:41 PM CDTCASE MANAGEMENT / SOCIAL SERVICE TRANSITION PLAN - PROGRESS NOTE PLAN: Transition Options Being Explored Will Continue to Follow for Support and Progression Towards Final Transition Plan BARRIERS TO TRANSITION: Awaiting Placement: Detention/Swing Bed/TCU Medical barriers:See below Other: Cost of IV antibiotics- Ertapenem and Daptomycin daily Monitor diarrhea IV Cefepime twice a day and IV Vancomycin twice a day Potassium chloride 20 mEq at 50 ml/hr Radiation completed to pancreas Radiation to lung started- 5 treatments every other day until 11/18- 2/5 treatments PT/OT following 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 Burgos Octreotide 200 mcg injection every eight hours- will need to continue upon discharge to [facility]- unless diarrhea improves DOES ACCEPTING FACILITY REQUIRE COVID TESTING BEFORE DISCHARGE: Needs one negative test within 24-48 hours COMMENTS / PATIENT AND FAMILY RESPONSE TO PLAN: EMR reviewed and plan of care discussed with digital imaging specialist- Brittany. Blair continues to receive IV antibiotics. Patient did have surgery on 10/24- right index finger amputation and tolerated this well. Radiation to right lung started today- will have total of five treatments- 2/5 treatments today. Continue to monitor ongoing stools- did have 2 stools yesterday- C. Diff is negative. Confirmed IV antibiotic plan with Dr. Burgos- will need to continue for 4-6 weeks at least until 12/05/2020. No significant changes or concerns at this time. Plan will be to discharge on 11/[address] [facility]. Blair continues to work with PT/OT and sitting up in chair today. 11/08- Updates sent via Fluid-1. [facility]- they received a cost estimate for IV antibiotics and will not be able to offer a bed due to this. [facility]- remains full and no bed available. [facility] is not able to offer. [facility] in [place] is considering and requested nursing notes be sent over. Did sent update to [facility]- they are able to offer a bed- patient does not have transportation available to and from [facility]. Received call from [facility]- they are wondering if patient will need to continue Octreotide injections every eight hours- there is a drug shortage and they can see if this can be obtained priorto Blair admitting there. Did message Dr. Thomas and he anticipates that Blair will need to continue this upon discharge as her diarrhea is likely not going to improve. Did send update with this information to [facility]. They were able to locate a supply and have ordered a couple weeks for patient when she is able to transition there. 11/08- Update provided to patient's daughter- Vanessa at [phone]- gave update that placement has notbeen found in [place] yet and [facility] is unable to accept due to cost of IV antibiotics.. Patient stated that she anticipated she would be here to complete rest of radiation when she spoke with Dr. Thomas yesterday. Radiation and lack of transportation is main barrier along with cost of medication. Update provided to Dr. Thomas that placement has not been found yet. [facility] is approved. Patient did not have any other questions for CM at this time. IS PATIENT'S ADMISSION ASSOCIATED WITH TIA, ISCHEMIC, OR HEMORRHAGIC STROKE?: No PATIENT / SUBSTITUTE DECISION MAKER GOAL UPON TRANSITION: First Choice: PICC Line Swing Bed Transitional Care IV Antibiotics ANTICIPATED NEEDS UPON TRANSITION: PICC Line Swing Bed Transitional Care IV Antibiotics RESOURCE(S) PROVIDED: Placement and Transportation ANTICIPATED MODE OF TRANSPORT UPON TRANSITION: [employer] Wheelchair (P:[phone]) [employer]; [employer]. Wheelchair (P: [phone]) [employer] Wheelchair (P: [phone]) ANTICIPATED MODE OF TRANSPORT TO AND FROM FOLLOW UP APPOINTMENTS: As arranged by accepting facility Family Car VERIFIED CORRECT PHARMACY IS ENTERED FOR DISCHARGE: No Will verify once discharge destination is determined Medications will be reconciled using patient transfer "65 button"- [facility] Sw[facility] Bed will use hospital pharmacy for medication administration TRANSITION ROUNDING COMPLETED WITH THE FOLLOWING: Patient / family Laminating Machine Offbearer Attending digital imaging specialist Discussed via telephone SIGNED: BON Marx, RN, PCCN-K, [facility] Hematology/Oncology Laminating Machine Offbearer Alpha Pager* [phone] hysical Therapy - Jose Felder SPT - 11/11/2020 12:48 PM CDT PHYSICAL THERAPY Acute Care Treatment Note RECOMMENDATIONS Assessment: Patient remains weak at this time. Requires Silvina x1 for squat pivot transfer to chair - independent at baseline. Patient encouraged to transfer to chair 3x/day for all meals. Patient would continue to benefit from skilled PT upon discharge at a [facility] 6-Clicks Basic Mobility Score: 16 Daily activity prescription: Assist patient to chair 3 times per day for 30 to 60 minutes or for allmeals. Use Ax1-2 Squat pivot transfer Anticipated D/C Service needs: Low intensity setting SUBJECTIVE Patient agreeable to therapy session. Reports she is very fatigued after treatment this morning. nsgpresent. Pain: Patient reports pain in her back - improved with repositioning . OBJECTIVE Precautions: high risk hazardous medication, fall risk, pressure ulcer risk, contact precautions Observation: resting in bed upon arrival Gait belt donned for all out of bed activity Vitals: 11/11/20 0944 BP: 123/63 Pulse: 78 Resp: 16 Temp: 97.9 F (36.6 C) SpO2: 98% Lab Results Component Value Date HEMOGLOBIN 9.3 (L) 11/11/2020 Functional Mobility: Bed mobility: modified independent - bed rails Supine to Sit: minimal assistance Squat Pivot: minimal assistance Comments: Transfer from bed to chair, chair to commode to chair (3 total squat pivots) Independent with charu cares. Assistance to take off pants while seated - multiple weight shifts side to side withfair balance. Therapeutic Exercises: Completed seated bilat LE ex including: seated marching, resisted hip abduction/adduction, resisted knee flexion/extension Other: Patient sitting in chair at end of session. Bedside table, call light, and phone in reach. Alarm on. Assisted pt with set up for lunch. Patient Education: Patient was educated on POC today through explanation. They accepted teaching andverbalized understanding. Interdisciplinary Communication: nsg present at beginning and end of session - notified of tolerance Goals: Ongoing PLAN Continue plan of care. Patient will continue to benefit from skilled therapy to increase independence with functional transfers and increase activity tolerance. Treatment Today: Gait Training: minutes Therapeutic Exercise: minutes Therapeutic Activity: 42 minutes TOTAL TIMED CODES: 42 minutes TREATMENT TOTAL TIME: 42 minutes EDNA Stephen Associated attestation - Mariah Hedrick PT - 11/11/2020 1:33 PM CDTThis practitioner was present and in the room for the entire session, guiding the student in servicedelivery. Documentation was edited and reviewed by this practitioner prior to signature application. 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 Chewable MVIdaily ? Calcium + Vitamin D supplement ? If patient has had more than 100 cm of terminal ileum removed, monthly B-12 injections may be required and may need additional fat-soluble vitamins (A, D, E, K) ? Zinc and selenium related to chronic diarrhea 4)If diarrhea/malabsorption does not improve, consider supplemental parental nutrition ? Goal TPN to meet [id number] kcal, 80gm protein, 295lipid kcal, 885CHO kcal/day Malnutrition Summary Malnutrition Assessment Date: 11/11/20 Severe protein-calorie malnutrition Malnutrition Characteristics in the Context of Chronic Illness (greater than 3 months): Energy Intake: Less than or equal to 75% intake of estimated energy needs for greater than or equal to 1 month Severe Weight Loss: Greater than 20% in 1 year Subcutaneous Fat Loss: Moderate Muscle Loss: Moderate Interventions: Monitor oral intake/advance diet as tolerated;Supplement diet with ONS (oral nutrition supplements)/nutrient dense foods;Vitamin/mineral supplementation NUTRITION ASSESSMENT Pt reported fair appetite today and continues eating the probiotic yogurt 1x/day brought in by pt's daughter. Noted wt up 9.9 kg but fluid up 13 L. Diarrhea slightly decreased the last 2 days. Will continue to monitor d/t possible issues with malabsorption and may need to consider TPN. Adjusted snacks per pt preference. Patient started lung radiation 11/09. Plan to transition to [facility] when radiation is done, ~11/18. Anthropometrics: Height: 149.9 cm (4' 11") Admission Weight: Weight: 52.8 kg (116 lb 6.5 oz) as of 10/18/2020 per bed scale Previous weight: 50.3 kg (110 lb 12.8 oz) as of 11/10/20 per electronic standup Most Recent Weight: Weight: 62.7 kg (138 lb 3.7 oz) (11/11/20 0127) per bed scale Lowest Weight Since Admission: 110 lb Weight Change: +9.9 kg (22 lb) since admission - noted +13 L fluid BMI: Body mass index is 27.92 kg/m. IBW: 45 kg %IBW: 117% (based on admit weight) Usual Body Weight: Unknown at this time Unintentional Weight Loss:Pt has lost 50 lb (30%) in <1 year AND 14 lb (11%) in 1 month, both clinically significant.Pt weighed ~180-190 lb in 2019, and has been losing weight since per EMR. Estimated Needs: 1450-1600kcal/day(30kcal/kgUsing: Admission Weight) 65-80gm protein(1.3-1.5gm/kg Using:Admission Weight) Fluids per MD Estimated average intake over the last 2 days: 1100 kcal and 30 gm protein, which meets: 76% of estimated kcal needs and 50% of estimated protein needs. Intake Records: Intake Prior to Admit: Less than 75% of estimated energy requirements for greater than or equal to 1month Patient voices decreased intake d/t frequent diarrhea. She voices that she chronically has diarrhea,but that it has increased significantly since she started radiation 2 weeks ago. She voices normallyeating1-2mealsdaily, her main meal being in the evening with her family. Pt lives with her children.She voices that she has been trying to eat bananas and potatoes for extra potassium.She voices that her daughter bought her a bunch of different nutritional drinks but that she doesn't like them. Pt voices liking to drink water and 1 regular coke throughout the day. Lunch: sandwich (a bun with meat and cheese), or plain pasta with butter, salt and pepper Supper: meat (shrimp, roast) with mashed potatoes, or fettuccine magi pasta with shrimp Current Intake: Sub optimal - meeting 50% of estimated protein needs but adequate in meeting kcal needs x 2 days. Previously, adequate intake x 13 days, but likely malabsorbing given frequent diarrhea. Current Diet: Nutrition (From admission, onward) Start Ordered 11/09/20 1040 SNACKS Once info Comments: PM: (Mon/Sat/Fri/Sun) muffin - vary flavors (Tues/Thurs/Sat) rice pudding HS: cookie (vary) 11/09/20 1040 10/24/201949 ADVANCE DIET TOLERATED ONCE 10/24/20194710/24/201949 Diet - Diabetic Now Question: Modified Diets Answer: Diabetic 10/24/20194710/19/20 170 Supplement [facility]; Boost Breeze BID BID Comments: Please add water to drink to mute flavor. Give supplement cold with medications twice a day. The supplement is an intervention for identified nutrition risk factors. * Do not give if patient is NPO (unless the orders specify NPO with supplement) or if medication should not be given with food. Question Answer Comment Location [facility] Dietary Supplement Boost Breeze 10/19/20 1232 10/19/20 1700 Supplement [facility]; Supplement per RD BID BID Comments: Banana flakes/Banatrol (located in pt's room): mix in pudding or applesauce BID to help thicken stools. Question Answer Comment Location [facility] Dietary Supplement Supplement per RD 10/19/20 1234 Physical Assessment: Edema: (per solar site assessment specialist at 1701 yesterday) ? LLE Edema Trace ? RLE Edema Trace GI Assessment: ? Abdominal exam: Non-tender and hernia with Present bowel sounds, per solar site assessment specialist at 0944 today. ? Stool Frequency: 2-3x/day over the last 2 days Wounds/Pressure Points: (per solar site assessment specialist at 0944 today) ? Coccyx dressed ? Elbow Blanchable Redness Functional Status: PT Following OT Following Nutrition Focused Physical Exam: Completed by RD on 11/11/20 Below the Eye (fat): Slightly dark circles, somewhat hollow look (mild-moderate) Oriental Orthodox (muscle): Slight depression (mild-moderate)(Moderate) Buccal (fat): Flat cheeks (moderate) Clavicle (muscle): Some protrusion of bone (mild-moderate)(Moderate) Shoulder (muscle)/Deltoid muscle: Acromion process slightly protrudes (mild-moderate)(Moderate) Ribs/Iliac Crest (fat): Ribs do not show, slight to no protrusion of iliac crest (Within Defined Limits)(Mild) Triceps/Biceps (fat): Some depth to pinch, but not ample (mild-moderate) Hand/Interosseous (muscle): Slightly depressed (mild-moderate) Thigh (muscle): Mild depression on inner thigh (mild-moderate)(Moderate - pt uses wheelchair primarily) Calf (muscle): Not well developed (mild-moderate)(Moderate - pt uses wheelchair primarily) Nutritionally-Relevant Medications, Vitamins and Minerals: Antibiotics, Lomotil, Glucotrol XL, Dilaudid, CS Novolog, Creon, Imodium, magnesium sulfate, flagyl,Thera-M, octreotide acetate, Vitamin K, potassium chloride, sodium phosphates Nutritionally-Relevant Biochemical Data: (11/11/2020) Glucose 176 H Phosphorus 1.8 L - replaced Magnesium 1.4 L - replaced Albumin 1.7 L Allergies/Food Intolerance: Blair is allergic to penicillin; adhesives; bactericin [bacitracin]; cortisporin [cmlksqrt-atnkwdood-ij]; hydrocortisone [cortizone]; levofloxacin; lincocin; medihoney ca alginate 2"x2" [alginate - carboxymethylcellulose - silver]; monistat [tioconazole]; septra [sulfameth oxazole w-trimethoprim]; silvadene [silver sulfadiazine]; silver picrate; soap; sodium acetate; sulfa drugs; sulfamethoxazole w-trimethoprim; tpn electrolytes ii [lypholyte]; and xeroform [bismuth tribromoph-petrolatum]. Culturally Pentec[employer]alism Needs: no INTERVENTIONS Encouraged adequate calories and optimal protein in small, frequent meals and snacks Will send snacks and supplements BID - changed slightly per pt preferences Conducted NFPE EMR reviewed Ordered supper meal per pt preferences MONITORING/EVALUATION Monitor ability to consume and tolerate adequate intake to approximate estimated needs with accomodation of preferences and tolerances until intake is sustained within desirable limits Monitor I&O, weight trends, nutrition-related labs and medications, clinical status, and planof care r/t need for nutrition intervention and provide as warranted Nutrition Therapy will reassess every 1-[address], BREANNA Alpha pager #[phone] are Planning - Kirill Buck RN - 11/11/2020 6:51 AM CDTPatient resting well this shift. Up to commode several times. No falls. Will continue with plan of ca re. Problem: RISK FOR FALLS Goal: FALL PREVENTION BEHAVIOR Description: DEFINITION: Personal or family respiratory care specialist actions to minimize risk factors that might precipitate falls in the personal environment. 1=Never demonstrated, 2=Rarely demonstrated, 3=Sometimes demonstrated, 4=Often demonstrated, 5=Consistently demonstrated. Flowsheets (Taken 11/11/2020 0650) Target Score: 5 Plan of care reviewed with: Patient Patient specific goal for the day: patient will not have a fall this shift Patient specific goal for the stay: Patient will remain fall/injury free. Achieve goal for stay: By discharge Patient Progress: Calls appropriately. No falls are Planning - Alexandria Orosco RN - 11/10/2020 7:26 PM CDT Problem: DIARRHEA Goal: BOWEL ELIMINATION Description: Description: Formation and evacuation of stool. 1 = Severely compromised, 2 = Substantially compromised, 3 = Moderately compromised, 4 = Mildly compromised, 5 = Not compromised. Outcome: NOC Rating 3 Flowsheets (Taken 11/10/2020 1925) Plan of care reviewed with: Patient Patient specific goal for the day: Pt will continue to receive meds for diarrhea. Patient specific goal for the stay: Patient will have less diarrhea. Achieve goal for stay: By discharge Patient Progress: Patient had one loose stool so far this shift. Continues on scheduled antidiarrheals. Will continue to monitor. ase Mgmt - Valery Shukla RN - 11/10/2020 3:46 PM CDTCASE MANAGEMENT / SOCIAL SERVICE TRANSITION PLAN - PROGRESS NOTE PLAN: Transition Options Being Explored Will Continue to Follow for Support and Progression Towards Final Transition Plan BARRIERS TO TRANSITION: Awaiting Placement: Detention/Swing Bed/TCU Medical barriers:See below Other: Cost of IV antibiotics- Ertapenem and Daptomycin daily Monitor diarrhea IV Cefepime twice a day and IV Vancomycin twice a day Potassium chloride 20 mEq at 50 ml/hr Radiation completed to pancreas Radiation to lung started- 5 treatments every other day until 11/18- 5 treatments PT/OT following Surgery on 10/24- right index finger amputation by Dr. Yessenia- continue dressing changes Pathology did show osteomyelitis- will need to continue IV antibiotics until 12/05 per Dr. Burgos Octreotide 200 mcg injection every eight hours- will need to continue upon discharge to [facility] Bed- unless diarrhea improves DOES ACCEPTING FACILITY REQUIRE COVID TESTING BEFORE DISCHARGE: Needs one negative test within 24-48 hours COMMENTS / PATIENT AND FAMILY RESPONSE TO PLAN: EMR reviewed and plan of care discussed with digital imaging specialist- RadhaLo Frazier continues to receive IV antibiotics. Patient did have surgery on 10/24- right index finger amputation and tolerated this well. Radiation to right lung started today- will have total of five treatments. Continue to monitor ongoing stools- did have 3 stools yesterday- C. Diff is negative. Confirmed IV antibiotic plan with Dr. Burgos- will need to continue for 4-6 weeks at least until 12/05/2020. No significant changes or concerns at this time. Plan will be to discharge on 11/[address] [facility]. Updates sent via Fluid-1. [facility]- they received a cost estimate for IV antibiotics and will not be able to offer a bed due to this. [facility]- remains full and no bed available. [facility] is not able to offer. [facility] in [place] is considering and requested nursing notes be sent over. Did sent update to [facility]- they are able to offer a bed- patient does not have transportation available to and from [facility]. Received call from [facility]- they are wondering if patient will need to continue Octreotide injections every eight hours- there is a drug shortage and they can see if this can be obtained priorto Blair admitting there. Did message Dr. Thomas and he anticipates that Blair will need to continue this upon discharge as her diarrhea is likely not going to improve. Did send update with this information to [facility]. They were able to locate a supply and have ordered a couple weeks for patient when she is able to transition there. 11/08- Update provided to patient's daughter- Vanessa at [phone]- gave update that placement has notbeen found in [place] yet and [facility] is unable to accept due to cost of IV antibiotics.. Patient stated that she anticipated she would be here to complete rest of radiation when she spoke with Dr. Thomas yesterday. Radiation and lack of transportation is main barrier along with cost of medication. Update provided to Dr. Thomas that placement has not been found yet. [place] [facility] is approved. Patient did not have any other questions for CM at this time. IS PATIENT'S ADMISSION ASSOCIATED WITH TIA, ISCHEMIC, OR HEMORRHAGIC STROKE?: No PATIENT / SUBSTITUTE DECISION MAKER GOAL UPON TRANSITION: First Choice: PICC Line Swing Bed Transitional Care IV Antibiotics ANTICIPATED NEEDS UPON TRANSITION: PICC Line Swing Bed Transitional Care IV Antibiotics RESOURCE(S) PROVIDED: Placement and Transportation ANTICIPATED MODE OF TRANSPORT UPON TRANSITION: [employer] Wheelchair (P:[phone]) [employer] Wheelchair (P: [phone]) [employer] Wheelchair (P: [phone]) ANTICIPATED MODE OF TRANSPORT TO AND FROM FOLLOW UP APPOINTMENTS: As arranged by accepting facility Family Car VERIFIED CORRECT PHARMACY IS ENTERED FOR DISCHARGE: No Will verify once discharge destination is determined Medications will be reconciled using patient transfer "65 button"- [facility] will use hospital pharmacy for medication administration TRANSITION ROUNDING COMPLETED WITH THE FOLLOWING: Patient / family Laminating Machine Offbearer Attending MD Moreno RN Discussed via telephone SIGNED: BON Marx, RN, PCCN-K, [facility] Hematology/Oncology Laminating Machine Offbearer Alpha Pager* [phone] ccupational Therapy - Dipti Minaya, OTR/Jason - 11/10/2020 3:41 PM CDT Occupational Therapy Acute Care Progress Note Impression/Recommendations Pt requires increased assistance with ADLs and functional transfers compared to baseline performance. Pt presents with overall deconditioning, decreased attention and often is self limiting. Pt will benefit from further inpatient therapies at a lower intensity therapy setting (i.e. ST-SNF, TCU, swing bed) in order to continue building strength and endurance while improving independence in ADL's andtransfers. Objective Cognition: Alert. Oriented x self, , location, city, month and year; flat affect throughout session - often demanding and self limiting asking therapist and staff to complete tasks for her that shecan complete herself. U/E: Pt tolerated B UE strengthening exercises using 1 # free weight to R UE and 2# free weight Ariana UE while in supine for 10 reps through each plane of movement to help increase strength and endurance to aid in independence with ADL's and transfers. Pt completed R hand exercises (6 pack exercises)x 10 reps. Pt richard's recall from previous OT sessions and states she has been completing independently. Oxygen Level: >90% throughout ession ADLs: Feeding: Not observed Grooming: Set up assist while seated EOB Dressing: Max assist for LE dressing Toileting: Not observed Transfers: Bed: Supine <> sit min assist with heavy use of bed rail; mod assist of 2 sit <> stand- pt continued to state "I can't do it, I can't do it". Encouragement provided. Once seated, pt denied ability to scoot self in bed - continued to encourage pt to try however she often gives up after only 1 or 2 tries then states "you need to help me". Pt able to step on scale to be weighed with min assist of 2. Gait belt used for all out of bed activity, ambulation/ transfer tasks for safety. Upon session completion, pt resting comfortably in bed with call light/ phone and tray table within reach. No questions/ concerns. Bed alarm activated. Pain: 0/10 Location: Pt denies pain throughout session Education Education/Training provided: Role of OT, plan of care, Safety strategies to utilize with functional transfers and ADL performance; UE exercise technique/speed and reasoning for exercises; Use of call light and importance of calling for assistance Learners: Patient Readiness: Acceptance Method of Training: Verbal education, demonstration Response: Verbalized/demonstrated understanding, will benefit from continued reinfocement Adaptive Equipment Recommendations To further assess Plan to obtain adaptive equipment: To further assess. Adaptive Equipment Available:toilet safety frame, hand held shower, extended tub bench, airline stewardess, wheelchair and front-wheeled walker Goals Patient/Family Stated Goal for Session: none stated though agreeable to OT Short Term Goals: Patient will tolerate 15-30 minutes U/E exercise to further increase independence with ADL/IADLs (ongoing) Patient will complete grooming task safely standing at the sink withSBAusing adaptive equipment as needed. (ongoing) Patient will complete LB dressing safely withSBAusing adaptive equipment as needed. (ongoing) Patient will complete toileting safely withSBAusing adaptive equipment as needed. (ongoing) Patient will complete functional transfers safely withSBAusing adaptive equipment as needed. (ongoing) Patient will further participate with cognitive assessment to increase safety with functional tasks.(ongoing) Patient will have AE in place to increase safety with ADLs by discharge(ongoing) Patient continues to slowly progress towards goals. Charges Treatment/Minutes: Today's Evaluation/Treatment Self care/home management: 12 minutes Therapeutic exercise: 15 minutes Total Treatment Time: 27 minutes Treatment Session 05/05 Weekly Assessment/Plan (Day 5): Continue OT POC as appropriate Therapist Alpha Pager Number [phone] are Planning - Esther Beard RN - 11/10/2020 2:39 PM CDT Problem: DIARRHEA Goal: BOWEL ELIMINATION Description: Description: Formation and evacuation of stool. 1 = Severely compromised, 2 = Substantially compromised, 3 = Moderately compromised, 4 = Mildly compromised, 5 = Not compromised. Flowsheets (Taken 11/10/2020 1436) Initial Score: 3 Target Score: 4 Plan of care reviewed with: Patient Patient specific goal for the day: Pt will continue to receive meds for diarrhea Patient specific goal for the stay: Patient will have less diarrhea. Achieve goal for stay: By discharge Patient Progress: Patient has only had one loose stool today, continues on scheduled antidiarrheals and Octreotide. Will continue to monitor. hysical Therapy - Mariah Hedrick PT - 11/10/2020 2:17 PM CDTPT continues to follow patient. Attempted to see patient, but patient declined. Will follow-up as a ppropriate. Mariah Hedrick PT Alpha pager: [phone] linical Team - Zully Lopez, JESSICA - 11/09/2020 11:47 PM CDTPt's BP 88/47, Dr. Myrick paged. No new order received. Advised nurse to continue monitor. Reportgiven to overnight nurse Lyssa. Charge nurse updated. BP 88/47 Pulse 67 Temp 97.9 F (36.6 C) Resp 18 Ht 1.499 m (4' 11") Wt 54.8 kg (120 lb 13 oz) SpO2 98% BMI 24.4 kg/m2|| are Planning - Zully Lopez RN - 11/09/2020 10:59 PM CDT Problem: RISK FOR FALLS Goal: FALL PREVENTION BEHAVIOR Description: DEFINITION: Personal or family respiratory care specialist actions to minimize risk factors that might precipitate falls in the personal environment. 1=Never demonstrated, 2=Rarely demonstrated, 3=Sometimes demonstrated, 4=Often demonstrated, 5=Consistently demonstrated. Outcome: NOC Rating 3 Flowsheets (Taken 11/09/2020 4992) Plan of care reviewed with: Patient Patient specific goal for the day: patient will not have a fall this shift Patient Progress: No fall this shift. Pt using call light appropriatel, fall precaution in place, bed alarm on, will monitor. Problem: DIARRHEA Goal: BOWEL ELIMINATION Description: Description: Formation and evacuation of stool. 1 = Severely compromised, 2 = Substantially compromised, 3 = Moderately compromised, 4 = Mildly compromised, 5 = Not compromised. Outcome: NOC Rating 4 Flowsheets (Taken 11/09/2020 1575) Plan of care reviewed with: Patient Patient specific goal for the day: Pt will continue to receive meds for diarrhea Patient Progress: Pt continue to have diarrhea but improvng, continue on scheduled octreotide, lomotil and imodium . Will monitor. 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 Chewable MVIdaily ? Calcium + Vitamin D supplement ? If patient has had more than 100 cm of terminal ileum removed, monthly B-12 injections may be required and may need additional fat-soluble vitamins (A, D, E, K) ? Zinc and selenium related to chronic diarrhea 4)If diarrhea/malabsorption does not improve, consider supplemental parental nutrition ? Goal TPN to meet [id number] kcal, 80gm protein, 295lipid kcal, 885CHO kcal/day Malnutrition Summary Malnutrition Assessment Date: 11/03/20 Severe protein-calorie malnutrition Malnutrition Characteristics in the Context of Chronic Illness (greater than 3 months): Energy Intake: Less than or equal to 75% intake of estimated energy needs for greater than or equal to 1 month Severe Weight Loss: Greater than 20% in 1 year Subcutaneous Fat Loss: Moderate Muscle Loss: Moderate Interventions: Monitor oral intake/advance diet as tolerated;Supplement diet with ONS (oral nutrition supplements)/nutrient dense foods;Vitamin/mineral supplementation NUTRITION ASSESSMENT Pt reports continued good appetite, noted eating 50-100% of meals and eating probiotic yogurt that her daughter brought her at least daily. Adjusted snack order per patient preference. Patient started lung radiation today. Plan to transition to [facility] when radiation is done, ~11/18. Anthropometrics: Height: 149.9 cm (4' 11") Admission Weight: Weight: 52.8 kg (116 lb 6.5 oz) as of 10/18/2020 per bed scale Most Recent Weight: Weight: 54.8 kg (120 lb 13 oz) (11/09/20 0600) per bed scale Lowest Weight Since Admission: 114 lb Weight Change: +4 lb since admission BMI: Body mass index is 24.4 kg/m. IBW: 45 kg %IBW: 117% (based on admit weight) Usual Body Weight: Unknown at this time Unintentional Weight Loss:Pt has lost 50 lb (30%) in <1 year AND 14 lb (11%) in 1 month, both clinically significant.Pt weighed ~180-190 lb in 2019, and has been losing weight since per EMR. Estimated Needs: 1450-1600kcal/day(30kcal/kgUsing: Admission Weight) 65-80gm protein(1.3-1.5gm/kg Using:Admission Weight) Fluids per MD Estimated average intake over the last 2 days: 1560 kcal and 52 gm protein, which meets: 100 % of estimated kcal needs and 80 % of estimated protein needs. Intake Records: Intake Prior to Admit: Less than 75% of estimated energy requirements for greater than or equal to 1month Patient voices decreased intake d/t frequent diarrhea. She voices that she chronically has diarrhea,but that it has increased significantly since she started radiation 2 weeks ago. She voices normallyeating1-2mealsdaily, her main meal being in the evening with her family. Pt lives with her children.She voices that she has been trying to eat bananas and potatoes for extra potassium.She voices that her daughter bought her a bunch of different nutritional drinks but that she doesn't like them. Pt voices liking to drink water and 1 regular coke throughout the day. Lunch: sandwich (a bun with meat and cheese), or plain pasta with butter, salt and pepper Supper: meat (shrimp, roast) with mashed potatoes, or fettuccine magi pasta with shrimp Current Intake: Adequate intake x 13 days, but likely malabsorbing given frequent diarrhea. Current Diet: Nutrition (From admission, onward) Start Ordered 11/09/20 1040 SNACKS Once info Comments: PM: (Mon/Wed/Fri/Sun) muffin - vary flavors (Tues/Thurs/Sat) rice pudding HS: cookie (vary) 11/09/20 1040 10/24/201949 ADVANCE DIET TOLERATED ONCE 10/24/20194710/24/201949 Diet - Diabetic Now Question: Modified Diets Answer: Diabetic 10/24/20194710/19/20 1700 Supplement [facility]; Boost Breeze BID BID Comments: Please add water to drink to mute flavor. Give supplement cold with medications twice a day. The supplement is an intervention for identified nutrition risk factors. * Do not give if patient is NPO (unless the orders specify NPO with supplement) or if medication should not be given with food. Question Answer Comment Location [facility] Dietary Supplement Boost Breeze 10/19/20 1232 10/19/20 1700 Supplement [facility]; Supplement per RD BID BID Comments: Banana flakes/Banatrol (located in pt's room): mix in pudding or applesauce BID to help thicken stools. Question Answer Comment Location [facility] Dietary Supplement Supplement per RD 10/19/20 1234 Physical Assessment: Edema: (per solar site assessment specialist at 1930 11/08) ? LUE Edema Trace ? RUE Edema Trace ? LLE Edema 1 ? RLE Edema 1 GI Assessment: ? Abdominal exam: Non-tender, Surgical scar and hernia with Active bowel sounds, per solar site assessment specialist at 0800 today. ? Stool Frequency: 5-7x/day over the last 2 days Wounds/Pressure Points: (per solar site assessment specialist at 0800 today) ? Ankle Open with red wound bed ? Coccyx Open with red wound bed ? Elbow Left, Right, Blanchable Redness ? Heel Left, Right, Blanchable Redness ? Hip Left, Open with red wound bed Functional Status: PT Following OT Following Nutrition Focused Physical Exam: Completed by RD on 11/03/2020 Below the Eye (fat): Slightly dark circles, somewhat hollow look (mild-moderate)(Moderate) Oriental Orthodox (muscle): Hollow, scooping, depression (severe) Buccal (fat): Flat cheeks (moderate) Clavicle (muscle): Some protrusion of bone (mild-moderate)(Moderate) Shoulder (muscle)/Deltoid muscle: Acromion process slightly protrudes (mild-moderate)(Moderate) Triceps/Biceps (fat): Some depth to pinch, but not ample (mild-moderate) Hand/Interosseous (muscle): Slightly depressed (mild-moderate) Thigh (muscle): Mild depression on inner thigh (mild-moderate)(Moderate - Pt uses wheelchair primarily) Calf (muscle): Not well developed (mild-moderate)(Moderate - Pt uses wheelchair primarily) Nutritionally-Relevant Medications, Vitamins and Minerals: Antibiotics, Lomotil, Glucotrol XL, Dilaudid, CS Novolog, Creon, octreotide acetate, Imodium, Thera-M, Vitamin K, potassium chloride, warfarin Nutritionally-Relevant Biochemical Data: (11/09/2020) Glucose 166 H Potassium 3.6 WNL - receiving supplementation daily Magnesium 1.7 L - supplemented Albumin 1.8 L Allergies/Food Intolerance: Blair is allergic to penicillin; adhesives; bactericin [bacitracin]; cortisporin [burfxjna-meclzqimt-qf]; hydrocortisone [cortizone]; levofloxacin; lincocin; medihoney ca alginate 2"x2" [alginate - carboxymethylcellulose - silver]; monistat [tioconazole]; septra [sulfameth oxazole w-trimethoprim]; silvadene [silver sulfadiazine]; silver picrate; soap; sodium acetate; sulfa drugs; sulfamethoxazole w-trimethoprim; tpn electrolytes ii [lypholyte]; and xeroform [bismuth tribromoph-petrolatum]. Culturally Pentecostalism Needs: no INTERVENTIONS Encouraged adequate calories and optimal protein in small, frequent meals and snacks Will send snacks and supplements BID EMR reviewed MONITORING/EVALUATION Monitor ability to consume and tolerate adequate intake to approximate estimated needs with accomodation of preferences and tolerances until intake is sustained within desirable limits Monitor I&O, weight trends, nutrition-related labs and medications, clinical status, and planof care r/t need for nutrition intervention and provide as warranted Nutrition Therapy will reassess every 1-[address], LRD Alpha Pager # [phone] Ext # [phone] Occupational Therapy - Deya Pepe OTR/Jason - 11/09/2020 3:34 PM CDT Occupational Therapy Acute Care Progress Note Impression/Recommendations Pt initially refusing therapeutic intervention then agreeable to ADLs followed by x1 trial of OOB activity prior to procedure. Pt exhibited overall decondtioned status, and strength required for transfers/ADLs. Recommend low intensity rehab upon medical stability. Pt required Ax1 for OOB activity. Acute care OT to continue following during IP hospitalization to maximize independence with ADLs through strength and endurance training. Objective Cognition: A&OX2 (person, place) U/E: General deconditioned status ADLs: Feeding: Not observed Grooming: Set up, seated EOB g/h with good dynamic sitting balance Dressing: Not observed Toileting: Not observed Transfers: Bed: Min A EOB > supine; SBA supine > EOB with HOB lowered and use of bed rail Chair: Min to Mod for x1 trial of sit to stand using FWW with initial refusal to utilize FWW followed by agreeance with education of safety for use of AD Toilet: Not observed Gait belt, gripper socks, and FWW used for all OOB activity, ambulation/ transfer tasks for safety. Pt completed functional mobility including: supine<> EOB, and sit to stand at EOB with partial R LE WB 2/2 wound. Pt demonstrated reduced activity tolerance for/during OOB activity with ability to stand for approximately 15-20 seconds. Upon session completion, pt resting comfortably in bed positioned in lowest setting, with call light/ phone and tray table within reach. Education provided on using call light and waiting for staff assistance before getting up. Safety parameters such as bed alarmin place at termination of therapeutic session. No questions/ concerns. Pain: Pt reported generalized discomfort in back region with no rating of pain Education Education/Training provided: Role of OT, plan of care Learners: Patient Readiness: Acceptance Method of Training: Verbal education, demonstration Response: Verbalized/demonstrated understanding, will benefit from continued reinfocement Adaptive Equipment Recommendations defer to low intensity rehab pending progress Plan to obtain adaptive equipment: To further assess. Goals Patient/Family Stated Goal for Session:none stated, agreeable to therapy session Short Term Goals: Patient will tolerate 15-30 minutes U/E exercise to further increase independence with ADL/IADLs (ongoing) Patient will complete grooming task safely standing at the sink withSBAusing adaptive equipment as needed. (ongoing) Patient will complete LB dressing safely withSBAusing adaptive equipment as needed. (ongoing) Patient will complete toileting safely withSBAusing adaptive equipment as needed. (ongoing) Patient will complete functional transfers safely withSBAusing adaptive equipment as needed. (ongoing) Patient will further participate with cognitive assessment to increase safety with functional tasks.(ongoing) Patient will have AE in place to increase safety with ADLs by discharge(ongoing) Patient continues to progress towards goals. Charges Treatment/Minutes: Today's Evaluation/Treatment Self care/home management: 15 minutes Therapeutic activity: 11 minutes Total Treatment Time: 26 minutes Treatment Session 04/04 Weekly Assessment/Plan (Day 5): Continue per POC Therapist Alpha Pager Number [phone] [phone] Mgmt - Valery Shukla RN - 11/09/2020 3:30 PM CDTCASE MANAGEMENT / SOCIAL SERVICE TRANSITION PLAN - PROGRESS NOTE PLAN: Transition Options Being Explored Will Continue to Follow for Support and Progression Towards Final Transition Plan BARRIERS TO TRANSITION: Awaiting Placement: Detention/Swing Bed/TCU Medical barriers:See below Other: Cost of IV antibiotics- Ertapenem and Daptomycin daily Monitor diarrhea IV Cefepime twice a day and IV Vancomycin twice a day Potassium chloride 20 mEq at 50 ml/hr Radiation completed to pancreas Radiation to lung started- 5 treatments every other day until 11/18 PT/OT following 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 Burgos Octreotide 200 mcg injection every eight hours- will need to continue upon discharge to [facility]- unless diarrhea improves DOES ACCEPTING FACILITY REQUIRE COVID TESTING BEFORE DISCHARGE: Needs one negative test within 24-48 hours COMMENTS / PATIENT AND FAMILY RESPONSE TO PLAN: EMR reviewed and plan of care discussed with digital imaging specialist- Amy. Frazier continues to receive IV antibiotics. Patient did have surgery on 10/24- right index finger amputation and tolerated this well. Radiation to right lung started today- will have total of five treatments. Continue to monitor ongoing stools- did have 5 stools yesterday- C. Diff is negative. Confirmed IV antibiotic plan with Dr. Burgos- will need to continue for 4-6 weeks at least until 12/05/2020. Updates sent via Fluid-1. Received response back from [facility]- they received a cost estimate for IV antibiotics and will not be able to offer a bed due to this. [facility]- remains full and no bed available. [facility] not able to offer. [facility] is considering and requested nursing notes be sent over. Did sent update to [facility]- they are able to offer a bed- patient does not have transportation available to and from [facility]. Received call from [facility]- they are wondering if patient will need to continue Octreotide injections every eight hours- there is a drug shortage and they can see if this can be obtained priorto Blair admitting there. Did message Dr. Thomas and he anticipates that Blair will need to continue this upon discharge as her diarrhea is likely not going to improve. Did send update with this information to [facility]. They were able to locate a supply and have ordered a couple weeks for patient when she is able to transition there. 11/08- Update provided to patient's daughter- Vanessa at [phone]- gave update that placement has notbeen found in [place] yet and [facility] due to cost of IV antibiotics.. Patient stated that she anticipated she would be here to complete rest of radiation when she spoke with Dr. Thomas yesterday. Radiation and lack of transportation is main barrier along with cost of medication. Update provided to Dr. Thomas that placement has not been found yet. [place] [facility] is approved. Patient did not have any other questions for CM at this time. IS PATIENT'S ADMISSION ASSOCIATED WITH TIA, ISCHEMIC, OR HEMORRHAGIC STROKE?: No PATIENT / SUBSTITUTE DECISION MAKER GOAL UPON TRANSITION: First Choice: PICC Line Swing Bed Transitional Care IV Antibiotics ANTICIPATED NEEDS UPON TRANSITION: PICC Line Swing Bed Transitional Care IV Antibiotics RESOURCE(S) PROVIDED: Placement and Transportation ANTICIPATED MODE OF TRANSPORT UPON TRANSITION: [employer] Wheelchair (P:[phone]) [employer] Wheelchair (P: [phone]) [employer] Wheels Wheelchair (P: [phone]) ANTICIPATED MODE OF TRANSPORT TO AND FROM FOLLOW UP APPOINTMENTS: As arranged by accepting facility Family Car VERIFIED CORRECT PHARMACY IS ENTERED FOR DISCHARGE: No Will verify once discharge destination is determined Medications will be reconciled using patient transfer "65 button"- [facility] will use hospital pharmacy for medication administration TRANSITION ROUNDING COMPLETED WITH THE FOLLOWING: Patient / family Laminating Machine Offbearer Attending MD Moreno RN Discussed via telephone SIGNED: BON Marx, RN, PCCN-K, [facility] Hematology/Oncology Laminating Machine Offbearer Alpha Pager* [phone] hysical Therapy - Mariah Hedrick PT - 11/09/2020 3:24 PM CDTPT continues to follow patient. Attempted to see patient, but patient just leaving room for treatment. Will follow-up as appropriate. Mariah Hedrick PT Alpha pager: [phone] harmacy - Ella Rick, PHARM D - 11/09/2020 11:40 AM CDT Ms. Stafford continues on Vancomycin per pharmacy protocol for osteomyelitis. The patient is on day 20 of receiving Vancomycin and current dose is 750 mg q12h. Labs: WBC Date/Time Value Ref Range Status 11/09/2020 05:25 AM 3.1 (L) 4.0 - 11.0 K/uL Final 11/08/2020 04:30 AM 2.9 (L) 4.0 - 11.0 K/uL Final 11/07/2020 06:25 AM 3.9 (L) 4.0 - 11.0 K/uL Final 09/29/2020 4.6 Final 07/01/2020 03:10 PM 5.8 4.0 - 10.2 K/uL Final 09/30/2019 5.20 4 - 11 Final 04/04/2018 03:11 PM 7.0 K/uL Lab Results Component Value Date CREATSERUM 0.64 11/09/2020 CREATSERUM 0.60 11/08/2020 CREATSERUM 0.64 11/07/2020 Vancomycin Trough Date/Time Value Ref Range Status 11/09/2020 10:24 AM 16.0 10.0 - 20.0 ug/mL Final Vancomycin Random Date/Time Value Ref Range Status 11/02/2020 01:50 AM 14.5 ug/mL Final Cultures: Lab Results Component Value Date CULTGROWTH No anaerobic growth at 5 days 10/24/2020 CULTGROWTH No growth 10/24/2020 Max Temperature: Temp (24hrs), Av.6 F (36.4 C), Min:97.4 F (36.3 C), Max:97.9 F (36.6 C) Estimated CrCl: CrCl cannot be calculated (Unknown ideal weight.). ml/min Intake/Output: Intake/Output Summary (Last 24 hours) at 11/09/2020 1140 Last data filed at 11/09/2020 1010 Gross per 24 hour Intake 1382 ml Output 600 ml Net 782 ml Other Active Antimicrobials: Antibiotics (From admission, onward) Start Stop Route Frequency Ordered 11/06/20 1030 vancomycin (VANCOCIN) 750 mg in sodium chloride 0.9% 150 mL -- IV Every twenty four hours 11/05/20 1248 11/02/20 0930 vancomycin in dextrose 200 mL IV piggyback (premix) 1,000 mg Status: Discontinued 11/05 1248 IV Every twenty four hours 11/02/20 0837 11/01/20 0100 vancomycin in dextrose 200 mL IV piggyback (premix) 1,000 mg 11/01 0231 IV One time 11/01/20 0008 10/30/20 2000 vancomycin in dextrose 200 mL IV piggyback (premix) 1,000 mg 10/30 2103 IV One time 10/30/20 1011 10/29/20 0800 vancomycin in dextrose 200 mL IV piggyback (premix) 1,000 mg 10/29 1053 IV One time 10/29/20 0720 10/27/20 1945 vancomycin in dextrose 200 mL IV piggyback (premix) 1,000 mg 10/27 2057 IV One time 10/27/20 1840 10/26/20 0732 vancomycin therapy reminder Status: Discontinued 11/02 08 [facility] [place] 10/26/20 0732 10/26/20 0000 cefepime (MAXIPIME) 2000 mg/20 mL in sterile water IV syringe -- IV Every twelve hours 10/25/20 1338 10/21/20 1700 metroNIDAZOLE (FLAGYL) tablet 500 mg -- PO Three times a day 10/21/20 1550 10/21/20 1700 vancomycin in dextrose 200 mL IV piggyback (premix) 1,000 mg Status: Discontinued 10/26 0732 IV Every twelve hours 10/21/20 1602 10/21/20 1630 cefepime (MAXIPIME) 2000 mg/20 mL in sterile water IV syringe Status: Discontinued 10/25 1338 IV Every eight hours 10/21/20 1550 10/18/20 1700 cefTRIAXone (ROCEPHIN) 1000 mg/10 mL IV syringe in sterile water Status: Discontinued 10/21 1550 IV Every twenty four hours 10/18/20 1547 Assessment/Plan: The trough level is within the desired goal of 15-20 mg/L. Vancomycin will be continued at current dose/interval. Pharmacy will continue to monitor per the pharmacokinetic service policy. Ella Rick, PHARM D are Planning - Elian Amanda RN - 11/09/2020 8:05 AM CDT Problem: DIARRHEA Goal: BOWEL ELIMINATION Description: Description: Formation and evacuation of stool. 1 = Severely compromised, 2 = Substantially compromised, 3 = Moderately compromised, 4 = Mildly compromised, 5 = Not compromised. Outcome: NOC Rating 3 Flowsheets (Taken 11/09/2020 0803) Target Score: 5 Plan of care reviewed with: Patient Patient specific goal for the day: Patient will have adequate management of diarrhea. Patient specific goal for the stay: Patient will have less diarrhea. Achieve goal for stay: By discharge Patient Progress: Patient had loose stools over night. Medication given as ordered. are Sydnie - Esther Beard RN - 11/08/2020 7:37 PM CDT Problem: RISK FOR INFECTION Goal: INFECTION SEVERITY Description: DEFINITION: Severity of signs and symptoms of infection. 1 = Severe, 2 = Substantial, 3 = Moderate, 4 = Mild, 5 = None. Flowsheets (Taken 11/08/2020 1935) Initial Score: 3 Target Score: 4 Plan of care reviewed with: Patient Patient specific goal for the day: Patient will communicate to nurse signs/symptoms of infection Patient specific goal for the stay: Treat infection Achieve goal for stay: By discharge Patient Progress: Patient continues on IV abx and will need to be on them until mid November per Dr CALI bosch. Patient has complained of haivng chills and then being hot throughout today. Will continue to monitor. Occupational Therapy - Dipti Minaya, OTR/L - 11/08/2020 4:02 PM CDT Occupational Therapy Acute Care Progress Note Impression/Recommendations Pt declined OOB activity this date despite encouragement provided however agreeable to light ADLs and UE exercises in bed. Pt presents with overall deconditioning, decreased attention and need for increased assistance with ADLs and functional transfers compared to baseline performance. Pt will benefit from further inpatient therapies at a lower intensity therapy setting (i.e. ST-SNF, TCU, swing bed)in order to continue building strength and endurance while improving independence in ADL's and transfers. Objective Cognition: Alert. Oriented x self, , location, city, month and year; flat affect throughout session - brightens with increased rapport built. Poor attention demonstrated throughout activity - continues to fixate on time of radiation this date. U/E: Pt tolerated B UE strengthening exercises using 1 # free weight to R UE and 2# free weight to L UE while in supine for 10 reps through each plane of movement to help increase strength and endurance to aid in independence with ADL's and transfers. Pt completed R hand exercises (6 pack exercises) x 10 reps. Pt demo's recall from previous OT sessions and states she has been completing independently. Oxygen Level: >90% throughout session ADLs: Feeding: Independent with items in reach Grooming: Set up assist while seated in bed Dressing: Declined participation Toileting: Denied need Transfers: Pt declined OOB activity this date due to fatigue despite encouragement provided. Upon session completion, pt resting comfortably in bed with call light/ phone and tray table within reach. No questions/ concerns. Pain: 0/10 Location: Pt denies pain throughout session Education Education/Training provided: Role of OT, plan of care, UE exercise technique/speed and reasoning for exercises; Use of call light and importance of calling for assistance Learners: Patient Readiness: Acceptance Method of Training: Verbal education, demonstration Response: Verbalized/demonstrated understanding, will benefit from continued reinfocement Adaptive Equipment Recommendations Adaptive Equipment Recommended: TBA Adaptive Equipment Available:toilet safety frame, hand held shower, extended tub bench, airline stewardess, wheelchair and front-wheeled walker Plan to obtain adaptive equipment: Anticipate patient will receive all required equipment at next level of care. Goals Patient/Family Stated Goal for Session: none stated, agreeable to therapy session Short Term Goals: Patient will tolerate 15-30 minutes U/E exercise to further increase independence with ADL/IADLs (ongoing) Patient will complete grooming task safely standing at the sink withSBAusing adaptive equipment as needed. (ongoing) Patient will complete LB dressing safely withSBAusing adaptive equipment as needed. (ongoing) Patient will complete toileting safely withSBAusing adaptive equipment as needed. (ongoing) Patient will complete functional transfers safely withSBAusing adaptive equipment as needed. (ongoing) Patient will further participate with cognitive assessment to increase safety with functional tasks.(ongoing) Patient will have AE in place to increase safety with ADLs by discharge(ongoing) Patient continues to progress towards goals. Charges Treatment/Minutes: Today's Evaluation/Treatment Self care/home management: 8 minutes Therapeutic exercise: 18 minutes Total Treatment Time: 26 minutes Treatment Session 03/04 Weekly Assessment/Plan (Day 5): Continue OT POC as appropriate Therapist Alpha Pager Number [phone] ase Mgmt - Valery Shukla RN - 11/08/2020 3:50 PM CDTCASE MANAGEMENT / SOCIAL SERVICE TRANSITION PLAN - PROGRESS NOTE PLAN: Transition Options Being Explored Will Continue to Follow for Support and Progression Towards Final Transition Plan BARRIERS TO TRANSITION: Awaiting Placement: Detention/Swing Bed/TCU Medical barriers:See below Other: Cost of IV antibiotics- Ertapenem and Daptomycin daily Monitor diarrhea IV Cefepime twice a day and IV Vancomycin twice a day Potassium chloride 20 mEq at 50 ml/hr Radiation completed to pancreas- plan for radiation of lung to start tomorrow- will have five treatments- every other day starting on 11/09- will be completed on 11/18 PT/OT following 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 Burgos Octreotide 200 mcg injection every eight hours DOES ACCEPTING FACILITY REQUIRE COVID TESTING BEFORE DISCHARGE: Needs one negative test within 24-48 hours COMMENTS / PATIENT AND FAMILY RESPONSE TO PLAN: EMR reviewed and plan of care discussed with digital imaging specialist- Amy. Frazier continues to receive IV antibiotics. Patient did have surgery on 10/24- right index finger amputation and tolerated this well. Radiation kendra start tomorrow to lung- will have total of five treatments every other day- did speak with Camilla from Radiation Oncology. Continue to monitor ongoing stools- did have 7 stools yesterday- C. Diff is negative. Confirmed IV antibiotic plan with Dr. Burgos- will need to continue for 4-6 weeks at least until 12/05/2020. Updates sent via Fluid-1. Received response back from [facility]- they received a cost estimate for IV antibiotics and will not be able to offer a bed due to this. [facility]- remains full and no bed available. [facility] is not able to offer. Did sent update to [facility]- they are able to offer a bed- patient does not have transportation available to and from [facility]. Update provided to patient's daughter- Vanessa at [phone]- gave update that placement has not been found in [place] yet and [facility] is unable to accept due to cost of IV antibiotics..Patient stated that she anticipated she would be here to complete rest of radiation when she spoke with Dr. Thomas yesterday. Radiation and lack of transportation is main barrier along with cost ofmedication. Update provided to Dr. Thomas that placement has not been found yet. [place] [facility] is approved. Patient did not have any other questions for CM at this time. IS PATIENT'S ADMISSION ASSOCIATED WITH TIA, ISCHEMIC, OR HEMORRHAGIC STROKE?: No PATIENT / SUBSTITUTE DECISION MAKER GOAL UPON TRANSITION: First Choice: PICC Line Swing Bed Transitional Care IV Antibiotics ANTICIPATED NEEDS UPON TRANSITION: PICC Line Swing Bed Transitional Care IV Antibiotics RESOURCE(S) PROVIDED: Placement and Transportation ANTICIPATED MODE OF TRANSPORT UPON TRANSITION: [employer]-Van Wheelchair (P:[phone]) [employer] Wheelchair (P: [phone]) [employer] Wheelchair (P: [phone]) ANTICIPATED MODE OF TRANSPORT TO AND FROM FOLLOW UP APPOINTMENTS: As arranged by accepting facility Family Car VERIFIED CORRECT PHARMACY IS ENTERED FOR DISCHARGE: No Will verify once discharge destination is determined TRANSITION ROUNDING COMPLETED WITH THE FOLLOWING: Patient / family Laminating Machine Offbearer Attending MD digital imaging specialist Discussed via telephone SIGNED: BON Marx, RN, PCCN-K, [facility] Hematology/Oncology Laminating Machine Offbearer Alpha Pager* [phone] hysical Therapy - Jose Felder, SPT - 11/08/2020 2:30 PM CDT PHYSICAL THERAPY Acute Care Treatment Note RECOMMENDATIONS Assessment: Patient remains weak at this time. Requires Silvina x1 for squat pivot transfer to chair - independent at baseline. Patient would continue to benefit from skilled PT upon discharge at a [facility] 6-Clicks Basic Mobility Score: 16 Daily activity prescription: Assist patient to chair 3 times per day for 30 to 60 minutes or for allmeals. Use Ax1 squat pivot transfer Encourage patients to do personal cares when sitting up. Anticipated D/C Service needs: Low intensity setting SUBJECTIVE Patient agreeable to therapy session. nsg present Pain: Patient reports pain of her back and her bottom - improved with repositioning OBJECTIVE Precautions: high risk hazardous medication, fall risk, pressure ulcer risk, contact precautions Observation: resting in bed upon arrival Gait belt donned for all out of bed activity Vitals: 11/08/20 1526 BP: Pulse: Resp: Temp: SpO2: 92% Lab Results Component Value Date HEMOGLOBIN 9.1 (L) 11/08/2020 Functional Mobility: Bed mobility: modified independent bed rails Supine to Sit: minimal assistance Sit to Supine: not assessed Squat Pivot: minimal assistance Comments: Transfer from bed to chair, chair to commode to chair x2 (5 total squat pivots) Independent with charu cares. Patient also assisted to perform ADLs including set up for washing face, and assist to comb hair while sitting up. Therapeutic Exercises: Completed LE ex including: seated marching, resisted hip abduction/adduction, resisted knee flexion/extension, ankle pumps Other: Patient sitting in chair at end of session. Bedside table, call light, and phone in reach. Chair alarm on Patient Education: Patient was educated on POC today through explanation. They accepted teaching andverbalized understanding. Interdisciplinary Communication: nsg present for partial session - demonstrated SPT with minAx1 For patient. Goals: Ongoing PLAN Continue plan of care. Patient will continue to benefit from skilled therapy to increase independence with functional transfers and increase activity tolerance. Treatment Today: Gait Training: minutes Therapeutic Exercise: 10 minutes Therapeutic Activity: 31 minutes TOTAL TIMED CODES: 41 minutes TREATMENT TOTAL TIME: 41 minutes EDNA Stephen Associated attestation - Mariah Hedrick PT - 11/08/2020 4:00 PM CDTThis practitioner was present and in the room for the entire session, guiding the student in servicedelivery. Documentation was edited and reviewed by this practitioner prior to signature application. Mariah Hedrick PT Alpha pager: [phone] Care Planning - Marianne Valdes RN - 11/08/2020 1:19 AM CDT Problem: DIARRHEA Goal: BOWEL ELIMINATION Description: Description: Formation and evacuation of stool. 1 = Severely compromised, 2 = Substantially compromised, 3 = Moderately compromised, 4 = Mildly compromised, 5 = Not compromised. Outcome: NOC Rating 3 Flowsheets (Taken 11/08/2020 0117) Plan of care reviewed with: Patient Patient specific goal for the day: patient will have adequate intake this shift. Patient specific goal for the stay: Manage diarrhea Achieve goal for stay: By discharge Patient Progress: Patient has had at least 5 loose stool so far this shift. Schedlued lomotil, immodium and octretide given. Held PM senna. Will monitor. linical Team - Ne Padilla, JESSICA - 11/07/2020 6:49 PM CDTI have read and validate the accuracy of the student nurse's documentation for Blair Staffordfor 11/07/2020. are Planning - Ella Hirsch, Nurse Fermentation Engineer - 11/07/2020 5:22 PM CDT Problem: RISK FOR FALLS Goal: FALL PREVENTION BEHAVIOR Description: DEFINITION: Personal or family respiratory care specialist actions to minimize risk factors that might precipitate falls in the personal environment. 1=Never demonstrated, 2=Rarely demonstrated, 3=Sometimes demonstrated, 4=Often demonstrated, 5=Consistently demonstrated. Outcome: NOC Rating 4 Flowsheets (Taken 11/07/2020 1720) Plan of care reviewed with: Patient Patient specific goal for the day: patient will use call light appropriately Patient specific goal for the stay: Patient will remain fall/injury free. Achieve goal for stay: By discharge Patient Progress: Patient has been using call light appropriately this shift. Calling staff when needing to use the bedside commode. Patient is continent of both bowel and bladder. Patient is up with 2, gait belt to the commode, unsteady upon transfer. No falls this shift. Encouraging the patient to call staff with any concerns or when needing to use the commode. Will continue to monitor. Case Mgmt - Manny Shaver LSW - 11/07/2020 4:36 PM CDTCASE MANAGEMENT / SOCIAL SERVICE TRANSITION PLAN - PROGRESS NOTE PLAN: Transition Options Being Explored Will Continue to Follow for Support and Progression Towards Final Transition Plan BARRIERS TO TRANSITION: Medical barriers: Medical Stability Monitor diarrhea IV Cefepime twice a day and IV Vancomycin twice a day Potassium chloride 20 mEq at 75 ml/hr Radiation 25 treatments to pancreas- Radiation sim planning completed to lung (0/5 treatments) PT/OT following Surgery on 10/24- right index finger amputation by Dr. Casas Pathology pending Octreotide 200 mcg injection every eight hours DOES ACCEPTING FACILITY REQUIRE COVID TESTING BEFORE DISCHARGE: Needs one negative test within 24-48 hours COMMENTS / PATIENT AND FAMILY RESPONSE TO PLAN: CM reviewed patient's electronic medical record and received updates. Patient continues to be profiled through Fluid-1. [facility] declined patient at this time due to no available beds. Awaiting response form [facility]. [facility] able to offer a bed in [place] once patient is clinically stable and radiation completion. Patient has completed 25/ radiation treatments to pancreas. Patient is now to complete 5 treatments of radiation to lungs. [facility] Swing Bed will offer patient a bed once all radiation treatments are all completed and clinically stable. [facility] is unable to provide transportation to and from radiation treatments. However, patient prefers to stay in [place] area upon discharge. There were no case management needs on this date. Case management will continue to follow. IS PATIENT'S ADMISSION ASSOCIATED WITH TIA, ISCHEMIC, OR HEMORRHAGIC STROKE?: No PATIENT / SUBSTITUTE DECISION MAKER GOAL UPON TRANSITION: First Choice: PICC Line Swing Bed Transitional Care IV Antibiotics ANTICIPATED NEEDS UPON TRANSITION: PICC Line Swing Bed Transitional Care IV Antibiotics RESOURCE(S) PROVIDED: nothing needed at this time ANTICIPATED MODE OF TRANSPORT UPON TRANSITION: [employer]-Van Wheelchair (P:[phone]) [employer] Wheelchair (P: [phone]) ANTICIPATED MODE OF TRANSPORT TO AND FROM FOLLOW UP APPOINTMENTS: Other: Arranged by accepting facility VERIFIED CORRECT PHARMACY IS ENTERED FOR DISCHARGE: No -- Pending final destination TRANSITION ROUNDING COMPLETED WITH THE FOLLOWING: Patient / family Laminating Machine Offbearer Attending digital imaging specialist SIGNED: DENISE Salvador Fisher [employer] Line PH. [phone] Occupational Therapy - Dipti Minaya OTR/L - 11/07/2020 4:12 PM CDTOT attempted x 2 however on first attempt per RN, pt planning to leave for radiation soon. On second attempt, pt out of room to radiation. OT will follow up as able/appropriate 11/08/20. hysical Therapy - Jose Felder SPT - 11/07/2020 10:37 AM CDT PHYSICAL THERAPY Acute Care Treatment Note RECOMMENDATIONS Assessment: Patient remains weak at this time. Requires Silvina x1 for squat pivot transfer to chair - independent at baseline. Patient would continue to benefit from skilled PT upon discharge at a [facility] 6-Clicks Basic Mobility Score: 16 Daily activity prescription: Assist patient to chair 3 times per day for 30 to 60 minutes or for allmeals. Use Ax1 squat pivot transfer Encourage patients to do personal cares when sitting up. Anticipated D/C Service needs: Low intensity setting Anticipated Assistive Device needs: Manual WC SUBJECTIVE Patient and nsg agreeable to therapy session. Pain: At rest: Patient reports back pain - improved with repositioning OBJECTIVE Precautions: high risk hazardous medication, fall risk, pressure ulcer risk, contact precautions Observation: resting in bed upon arrival requesting to be repositioned Gait belt donned for all out of bed activity Vitals: 11/07/20 0949 BP: 130/74 Pulse: 74 Resp: 16 Temp: 97.8 F (36.6 C) SpO2: 94% Lab Results Component Value Date HEMOGLOBIN 9.6 (L) 11/07/2020 Functional Mobility: Bed mobility:modified independentbed rails Supine to Sit:modified independentbed rails Sit to Supine:modified independent - bed rails Comments: declined OOB activity due to back pain and fatigue Therapeutic Exercises: Patient performed 10 reps of bilateralseatedLE exercises:seated marching, resisted hip abduction/adduction,resisted knee flexion/extension, ankle pumps Other: Patientresting in bedat end of session, positioned on left side Bedside table, call light, andphone in reach.bedalarm on Patient Education:Patientwas educated on POCtoday through explanation and demonstration. Theyaccepted teachingand verbalized understanding. Interdisciplinary Communication: reported session to ns Goals: Ongoing PLAN Continue plan of care. Patient will continue to benefit from skilled therapy to increase independence with functional transfers and increase activity tolerance. Treatment Today: Gait Training: minutes Therapeutic Exercise: 13 minutes Therapeutic Activity: minutes TOTAL TIMED CODES: 13 minutes TREATMENT TOTAL TIME: 13 minutes EDNA Stephen Associated attestation - Mariah Hedrick PT - 11/07/2020 1:27 PM CDTThis practitioner was present and in the room for the entire session, guiding the student in servicedelivery. Documentation was edited and reviewed by this practitioner prior to signature application. Mariah Hedrick PT Alpha pager: [phone] Nutrition Team - Emili Hernandez RD, LD - 11/07/2020 10:25 AM CDT Nutrition Therapy Follow Up Hospital Day: 20 days Active Problems: Pancreatic cancer, had been undergoing combined therapy, chemo on hold, on radiation Osteomyelitis right index finger s/p amputation 3/ Severe diarrhea from a combination of short gut, chemoradiation, and antibiotic therapy Right leg ulcer Hypomagnesemia PMH: T2DM, Diabetic ulcer of heel, HTN, Tobacco abuse, Iron deficiency, NSTEMI, Hx of colon cancer, s/p hemicolectomy with ileostomy, liver cancer s/p partial hepatic resection, COPD Recommendations: 1) Encourage intake of small, frequent(5-6)meals t/o the day Avoid food and drinks high in sugar Avoid caffeine 2) Encourage beverages between meals, not with meals or snacks 3)Add daily for micronutrient support in short bowel syndrome/malabsorption/wound healing ? Chewable MVIdaily- patient currently refusing ? Calcium + Vitamin D supplement ? If patient has had more than 100 cm of terminal ileum removed, monthly B-12 injections may be required and may need additional fat-soluble vitamins (A, D, E, K) ? Zinc and selenium related to chronic diarrhea ? Recommend Oral Nutrition Supplement Drink to promote optimal energy and protein intake 5) If diarrhea/malabsorption does not improve, consider supplemental parental nutrition ? Goal TPN to meet needs 1500 total kcal, 80 gm protein, 295 lipid kcal, 885 CHO kcal/day Malnutrition Summary Malnutrition Assessment Date: 11/03/20 Severe protein-calorie malnutrition Malnutrition Characteristics in the Context of Chronic Illness (greater than 3 months): Energy Intake: Less than or equal to 75% intake of estimated energy needs for greater than or equal to 1 month Severe Weight Loss: Greater than 20% in 1 year Subcutaneous Fat Loss: Moderate Muscle Loss: Moderate Interventions: Monitor oral intake/advance diet as tolerated;Supplement diet with ONS (oral nutrition supplements)/nutrient dense foods;Vitamin/mineral supplementation NUTRITION ASSESSMENT Visited with patient this morning. Pt voices that meals have been going well. Does state that the cauliflower she ordered came up raw, which she wanted cooked. Did encourage pt to try broccoli or carrots as those can come cooked, the cauliflower on the menu is just raw. She voices understanding. She also had her daughter bring her some yogurt with probiotics for her to have during the day, which she had this telegraphic typewriter installer grab one for her at the end of visit. She voices that she isn't much of a breakfast eater, that her pills make her nauseated. Did encourage her to eat something light like crackers or bread as taking pills on an empty stomach can make nausea worse. Adjusted snack order per patient prefer ence. Per MD note, pt has her last radiation to pancreas today. Plan to start radiation on her lung when able. Anthropometrics: Height: 149.9 cm (4' 11") Admission Weight: Weight: 52.8 kg (116 lb 6.5 oz) as of 10/18/2020 per bed scale Most Recent Weight: Weight: 53.6 kg (118 lb 1.6 oz) (11/07/20 0316) per bed scale Lowest Weight Since Admission: 51.9 kg (114 lb 9.6 oz) Weight Change: +2 lb BMI: Body mass index is 23.85 kg/m. IBW: 45 kg %IBW: 117% (based on admit weight) Usual Body Weight: Unknown at this time Unintentional Weight Loss:Pt has lost 50 lb (30%) in <1 year AND 14 lb (11%) in 1 month, both clinically significant.Pt weighed ~180-190 lb in 2019, and has been losing weight since per EMR. Estimated Needs: 1450-1600kcal/day(30kcal/kgUsing: Admission Weight) 65-80gm protein(1.3-1.5gm/kg Using:Admission Weight) Fluids per MD Estimated average intake over the last 4 days: 1372 kcal and 59 gm protein, which meets: 94 % of estimated kcal needs and 91 % of estimated protein needs. Intake Records: equal to 1 month Patient voices decreased intake d/t frequent diarrhea. She voices that she chronically has diarrhea,but that it has increased significantly since she started radiation 2 weeks ago. She voices normallyeating1-2mealsdaily, her main meal being in the evening with her family. Pt lives with her children.She voices that she has been trying to eat bananas and potatoes for extra potassium.She voices that her daughter bought her a bunch of different nutritional drinks but that she doesn't like them. Pt voices liking to drink water and 1 regular coke throughout the day. Lunch: sandwich (a bun with meat and cheese), or plain pasta with butter, salt and pepper Supper: meat (shrimp, roast) with mashed potatoes, or fettuccine magi pasta with shrimp Current Intake: Adequate intake the last 11 days, yet likely malabsorbing d/t frequency of diarrhea. Current Diet: Nutrition (From admission, onward) Start Ordered 11/07/20 1030 SNACKS Once info Comments: PM: cookie (vary) 11/07/20 1029 10/24/201949 ADVANCE DIET TOLERATED ONCE 10/24/20194710/24/201949 Diet - Diabetic Now Question: Modified Diets Answer: Diabetic 10/24/20194710/19/20 1700 Supplement [facility]; Boost Breeze BID BID Comments: Please add water to drink to mute flavor. Give supplement cold with medications twice a day. The supplement is an intervention for identified nutrition risk factors. * Do not give if patient is NPO (unless the orders specify NPO with supplement) or if medication should not be given with food. Question Answer Comment Location [facility] Dietary Supplement Boost Breeze 10/19/20 1232 10/19/20 1700 Supplement [facility]; Supplement per RD BID BID Comments: Banana flakes/Banatrol (located in pt's room): mix in pudding or applesauce BID to help thicken stools. Question Answer Comment Location [facility] Dietary Supplement Supplement per RD 10/19/20 1234 Physical Assessment: Edema: (per solar site assessment specialist at 11/06) ? Generalized Edema None GI Assessment: ? Abdominal exam: Rounded, Soft and Surgical scar, hernia with Present, Audible bowel sounds, per RNassessment at 11/06. ? Stool Frequency: 2-5x/day over the last 4 days. Pt reports having 3 BMs this morning already Wounds/Pressure Points: (per solar site assessment specialist at 11/06) ? Ankle Right, Open with red/yellow wound bed ? Coccyx Blanchable Redness, little scab ? Heel Left, Right, Blanchable Redness Functional Status: PT Following OT Following Nutrition Focused Physical Exam: Completed by RD on 11/03/2020 Below the Eye (fat): Slightly dark circles, somewhat hollow look (mild-moderate)(Moderate) Oriental Orthodox (muscle): Hollow, scooping, depression (severe) Buccal (fat): Flat cheeks (moderate) Clavicle (muscle): Some protrusion of bone (mild-moderate)(Moderate) Shoulder (muscle)/Deltoid muscle: Acromion process slightly protrudes (mild-moderate)(Moderate) Triceps/Biceps (fat): Some depth to pinch, but not ample (mild-moderate) Hand/Interosseous (muscle): Slightly depressed (mild-moderate) Thigh (muscle): Mild depression on inner thigh (mild-moderate)(Moderate - Pt uses wheelchair primarily) Calf (muscle): Not well developed (mild-moderate)(Moderate - Pt uses wheelchair primarily) Nutritionally-Relevant Medications, Vitamins and Minerals: Antibiotics, Lomotil, Glucotrol XL, Dilaudid, CS Novolog, Creon, Imodium, statin, potassium chloride, warfarin Nutritionally-Relevant Biochemical Data: (11/07/2020) Glucose 180 H Magnesium 1.6 L Albumin 1.8 L Glucose POC: ranging 122-267 the last few days Allergies/Food Intolerance: Blair is allergic to penicillin; adhesives; bactericin [bacitracin]; cortisporin [bktxbsbv-krjoiyrfm-kf]; hydrocortisone [cortizone]; levofloxacin; lincocin; medihoney ca alginate 2"x2" [alginate - carboxymethylcellulose - silver]; monistat [tioconazole]; septra [sulfameth oxazole w-trimethoprim]; silvadene [silver sulfadiazine]; silver picrate; soap; sodium acetate; sulfa drugs; sulfamethoxazole w-trimethoprim; tpn electrolytes ii [lypholyte]; and xeroform [bismuth tribromoph-petrolatum]. Culturally Pentecostalism Needs: no INTERVENTIONS Encouraged adequate calories and optimal protein in small, frequent meals and snacks Will send snacks and supplements BID Provided patient with probiotic yogurt that her daughter brought EMR reviewed MONITORING/EVALUATION Monitor ability to consume and tolerate adequate intake to approximate estimated needs with accomodation of preferences and tolerances until intake is sustained within desirable limits Monitor I&O, weight trends, nutrition-related labs and medications, clinical status, and planof care r/t need for nutrition intervention and provide as warranted Nutrition Therapy will reassess every 1-[address], BREANNA Alpha Pager # [phone] Ext # [phone] are Planning - Marianne Valdes RN - 11/07/2020 2:35 AM CDT Problem: RISK FOR FALLS Goal: FALL PREVENTION BEHAVIOR Description: DEFINITION: Personal or family respiratory care specialist actions to minimize risk factors that might precipitate falls in the personal environment. 1=Never demonstrated, 2=Rarely demonstrated, 3=Sometimes demonstrated, 4=Often demonstrated, 5=Consistently demonstrated. Outcome: NOC Rating 4 Flowsheets (Taken 11/07/2020 0234) Plan of care reviewed with: Patient Patient specific goal for the day: patient will use call light appropriately Patient specific goal for the stay: Patient will remain fall/injury free. Achieve goal for stay: By discharge Patient Progress: patient using call light appropriately. remains free from falls at this time. Bed aarm on. care rounding preformed. will monitor. are Planning - Valorie Bowman RN - 11/06/2020 1:37 PM CDT Problem: IMPAIRED SKIN INTEGRITY Goal: TISSUE INTEGRITY: SKIN & MUCOUS MEMBRANES Description: DEFINITION: Structural intactness and normal physiological function of skin and mucousmembranes. 1=Severely compromised, 2=Substantially compromised, 3=Moderately compromised, 4=Mildly compromised, 5=Not compromised. Outcome: NOC Rating 3 Flowsheets (Taken 11/06/2020 1334) Patient specific goal for the day: Pt will tolerate repositioning and dressings to wounds Patient Progress: Pt requesting to be repositioned in bed this shift. Pt calls appropriately to use the BSC - she is continent of both bladder & bowel. Skin protectant applied to open scab on coccyx. Pt also c/o itchiness to underbreats - nyststain ordered yesterday & applied yesterday as wellas today to bilateral under breasts. Dressings on R index finger and R foot remain intact - changed as ordered & needed. Bilateral heels elevated on pillow. are Planning - Marianne Valdes RN - 11/06/2020 3:23 AM CDT Problem: DIARRHEA Goal: BOWEL ELIMINATION Description: Description: Formation and evacuation of stool. 1 = Severely compromised, 2 = Substantially compromised, 3 = Moderately compromised, 4 = Mildly compromised, 5 = Not compromised. Outcome: NOC Rating 4 Flowsheets (Taken 11/06/2020 0322) Plan of care reviewed with: Patient Patient specific goal for the day: patient will have adequate intake this shift. Patient specific goal for the stay: Manage diarrhea Achieve goal for stay: By discharge Patient Progress: patient has had one soft stool so far this shift. scheduled Lomotil and Immodium and octreotide given. will monitor. linical Team - Marianne Valdes RN - 11/06/2020 3:12 AM CDTTime Change Downtime Patient was seen during spring time change: On this transistion date no documentation will occur from 0200 Central Standard Time to 0300 Central Standard Time. 3:12 AM CDT Marianne Rodriguezk are Planning - Valorie Bowman RN - 11/05/2020 4:17 PM ASSISTANT SURVEYOR Problem: RISK FOR INFECTION Goal: INFECTION SEVERITY Description: DEFINITION: Severity of signs and symptoms of infection. 1 = Severe, 2 = Substantial, 3 = Moderate, 4 = Mild, 5 = None. Outcome: NOC Rating 3 Flowsheets (Taken 11/05/2020 8004) Patient specific goal for the day: Pt will continue to tolerate PO & IV abx Patient Progress: Pt continues on PO & IV abx - see OCT. VS remain stable. Electrolytes replacedtoday as needed as well. Pt continues to rest comfortably in bed. are Planning - Marianne Valdes RN - 11/05/2020 3:19 AM ASSISTANT SURVEYOR Problem: DIARRHEA Goal: BOWEL ELIMINATION Description: Description: Formation and evacuation of stool. 1 = Severely compromised, 2 = Substantially compromised, 3 = Moderately compromised, 4 = Mildly compromised, 5 = Not compromised. Outcome: NOC Rating 3 Flowsheets (Taken 11/05/2020 3866) Plan of care reviewed with: Patient Patient specific goal for the day: patient will have adequate intake this shift. Patient specific goal for the stay: Manage diarrhea Achieve goal for stay: By discharge Patient Progress: patient has had two loose stools far this shift. scheduled Lomotil and Immodium and octreotide given. will monitor. are Planning - Valorie Bowman RN - 11/04/2020 4:49 PM ASSISTANT SURVEYOR Problem: DIARRHEA Goal: BOWEL ELIMINATION Description: Description: Formation and evacuation of stool. 1 = Severely compromised, 2 = Substantially compromised, 3 = Moderately compromised, 4 = Mildly compromised, 5 = Not compromised. Outcome: NOC Rating 3 Problem: RISK FOR INFECTION Goal: INFECTION SEVERITY Description: DEFINITION: Severity of signs and symptoms of infection. 1 = Severe, 2 = Substantial, 3 = Moderate, 4 = Mild, 5 = None. Outcome: NOC Rating 3 Flowsheets (Taken 11/04/2020 6743) Patient specific goal for the day: Pt will practice good hygiene after using the restroom (BSC) Patient Progress: Pt uses hand hygiene after using the BSC. Continues on IV abx as well as PO abx flagyl. STANT SURVEYOR Occupational Therapy - Susu Moise OTR/L - 11/04/2020 3:54 PM ASSISTANT SURVEYOR Occupational Therapy Acute Care Progress Note Impression/Recommendations Recommend low-intensity therapy setting, upon discharge with medical stability. Pt is not safe to return home at this time. Will continue to update. Patient demonstrating decreased endurance and strength, and demonstrates below baseline transfers, all of which decreases independence with ADL's and IADL's. Patient has become progressively weaker and was requiring min-modA x2 with SPT's in previous session. Completes ADL's with SBA-modA. Patient agreeable to RUE hand/finger exercises this date - declined any further exercise due to fatigue from a "busy" day. OT will continue to follow acutely. Objective Cognition: Alert and oriented x4. Pleasant to work with and pt is appreciative of OT. Reports she has been continuing to complete her exercises for her RUE index finger amputation. Patient enjoys talking about her grandchildren, and reports she is excited to return home to see them. U/E: U/E exercise performed to promote joint integrity, reduce risk of contractures, facilitate enhancement of strength and endurance to further independence with ADLs/IADLs. Pt completed RUE AROM hand/finger exercises for 10 reps x1 for all motions/planes. OT provided education on correct technique, speed and end range. Pt given rest break after each exercise. Comments: Pt politely declined to complete BUE wrist, elbow and shoulder exercises this date due tofeeling too tired from having a "busy" day. ADLs: Feeding: Independent. Grooming: declined - reports she already completed this AM. Transfers: Patient declined to complete any OOB activity this date, despite encouragement. She reports she feels too fatigued to transfer. Remained in bed for duration of therapy session. At the end of the session, patient was left seated safely in bed. Call light, phone, and side table were all placed within patient reach. Informed to call a nurse if needing to get up or any additionalassistance. Pt verbalized understanding. Pain: No pain observed or reported this date. Education Education/Training provided: Role of OT, plan of care, ADL's, UE exercise, transfers Learners: Patient Readiness: Acceptance Method of Training: Verbal education, demonstration Response: Verbalized/demonstrated understanding, will benefit from continued reinforcement Adaptive Equipment Recommendations Adaptive Equipment Recommended: TBA Adaptive Equipment Available: toilet safety frame, hand held shower, extended tub bench, airline stewardess, wheelchair and front-wheeled walker Plan to obtain adaptive equipment: Anticipate patient will receive all required equipment at next level of care. Goals Patient/Family Stated Goal for Session: none stated, agreeable to therapy session Short Term Goals: Patient will tolerate 15-30 minutes U/E exercise to further increase independence with ADL/IADLs (ongoing) Patient will complete grooming task safely standing at the sink withSBAusing adaptive equipment as needed. (ongoing) Patient will complete LB dressing safely withSBAusing adaptive equipment as needed. (ongoing) Patient will complete toileting safely withSBAusing adaptive equipment as needed. (ongoing) Patient will complete functional transfers safely withSBAusing adaptive equipment as needed. (ongoing) Patient will further participate with cognitive assessment to increase safety with functional tasks. Patient will have AE in place to increase safety with ADLs by discharge Patient continues to progress towards goals. Charges Treatment/Minutes: Today's Evaluation/Treatment Therapeutic exercise: 13 minutes Total Treatment Time: 13 minutes Treatment Session 02/02 Weekly Assessment/Plan (Day 5): Continue POC. Therapist Alpha Pager Number [phone] ase Mgmt - Manny Shaver LSW - 11/04/2020 3:33 PM CSTCASE MANAGEMENT / SOCIAL SERVICE TRANSITION PLAN - PROGRESS NOTE PLAN: Transition Options Being Explored Will Continue to Follow for Support and Progression Towards Final Transition Plan BARRIERS TO TRANSITION: Medical barriers: Medical Stability Monitor diarrhea IV Cefepime twice a day and IV Vancomycin twice a day Potassium chloride 20 mEq at 75 ml/hr Radiation treatments to pancreas- radiation sim planning completed to lung (5 treatments) PT/OT following Surgery on 10/24- right index finger amputation by Dr. Casas Pathology pending Octreotide 200 mcg injection every eight hours IV magnesium replacement- magnesium- 1.5 DOES ACCEPTING FACILITY REQUIRE COVID TESTING BEFORE DISCHARGE: Needs one negative test within 24-48 hours COMMENTS / PATIENT AND FAMILY RESPONSE TO PLAN: CM reviewed patient's electronic medical record and received updates. Patient continues to be profiled through [facility]. [facility] have declined patient at this time due to no available beds. Awaiting response form [facility] [place] once patient is clinically stable. [facility] will offer patient a bed once all radiation treatments are all completed and clinically stable. [facility] is unable to provide transportation to and from radiation treatments. There were no case management needs on this date. Case management will continue to follow. IS PATIENT'S ADMISSION ASSOCIATED WITH TIA, ISCHEMIC, OR HEMORRHAGIC STROKE?: No PATIENT / SUBSTITUTE DECISION MAKER GOAL UPON TRANSITION: First Choice: PICC Line Swing Bed Transitional Care IV Antibiotics ANTICIPATED NEEDS UPON TRANSITION: PICC Line Swing Bed Transitional Care IV Antibiotics RESOURCE(S) PROVIDED: nothing needed at this time ANTICIPATED MODE OF TRANSPORT UPON TRANSITION: [employer] Wheelchair (P:[phone]) [employer]. Wheelchair (P: [phone]) ANTICIPATED MODE OF TRANSPORT TO AND FROM FOLLOW UP APPOINTMENTS: Other: Arranged by accepting facility VERIFIED CORRECT PHARMACY IS ENTERED FOR DISCHARGE: No -- Pending final destination TRANSITION ROUNDING COMPLETED WITH THE FOLLOWING: Patient / family Laminating Machine Offbearer Attending digital imaging specialist SIGNED: DENISE Salvador Fisher [employer] PH. [phone] ostOp Progress Note - Compa Medrano MD - 11/04/2020 3:32 PM CSTImmediate Post- Operative / Post Procedure Progress Note Interventional Radiologist: Compa Medrano MD Pre-Operative Diagnosis: Dysfunctional PICC Post-Operative Diagnosis: Same as pre-operative diagnosis. Anesthesia Type: n/a Interventional Procedure: PICC repositioning/exchange Procedural Findings: Re-demonstration of SVC stenosis/occlusion with collaterals. PICC repositioned into contralateral right brachiocephalic vein. Specimen: n/a Estimated Blood Loss: Minimal Tubes/Drains/Needle: n/a Complications: none Postoperative Condition: stable Compa Medrano MD hysical Therapy - Mariah Hedrick PT - 11/04/2020 3:03 PM CSTPT continues to follow patient. Attempted to see patient, but patient just leaving for IR. Will follow-up as appropriate. Mariah Hedrick PT Alpha pager: [phone] linical Team - Valorie Bowman RN - 11/04/2020 12:01 PM CSTPICC line continues to occlude, this nurse received no blood return. This nurse did alteplase PICC line once yesterday with success after 60 minutes of dwell time. PICC nurse assessed pt & PICC yesterday as well. Dr. Thomas notified & per Dr. Thomas, OK to hold 1200 cefepime until PICC placement is confirmed. are Planning - Shala Ritchie RN - 11/03/2020 9:45 PM ASSISTANT SURVEYOR Problem: RISK FOR FALLS Goal: FALL PREVENTION BEHAVIOR Description: DEFINITION: Personal or family respiratory care specialist actions to minimize risk factors that might precipitate falls in the personal environment. 1=Never demonstrated, 2=Rarely demonstrated, 3=Sometimes demonstrated, 4=Often demonstrated, 5=Consistently demonstrated. Outcome: NOC Rating 3 Flowsheets (Taken 11/03/20202142) Plan of care reviewed with: Patient Patient specific goal for the day: patient will use call light appropriately Patient Progress: patient using call light appropriately. remains free from falls at this time. carerounding preformed. will monitor. Problem: DIARRHEA Goal: BOWEL ELIMINATION Description: Description: Formation and evacuation of stool. 1 = Severely compromised, 2 = Substantially compromised, 3 = Moderately compromised, 4 = Mildly compromised, 5 = Not compromised. Outcome: NOC Rating 3 Flowsheets (Taken 11/03/20202142) Plan of care reviewed with: Patient Patient specific goal for the day: patient will have adequate intake this shift. Patient Progress: patient still having stools this shift. scheduled Lomotil and Immodium and octreotide. patient eating and drinking well. will monitor. Problem: RISK FOR INFECTION Goal: INFECTION SEVERITY Description: DEFINITION: Severity of signs and symptoms of infection. 1 = Severe, 2 = Substantial, 3 = Moderate, 4 = Mild, 5 = None. Outcome: NOC Rating 3 Flowsheets (Taken 11/03/20202142) Plan of care reviewed with: Patient Patient specific goal for the day: patient will notify nursing of s/sx of fever or chills Patient Progress: pt denying fever or chills. on IV abx. will monitor. STANT SURVEYOR Case Mgmt - Valery Shukla RN - 11/03/2020 3:37 PM CSTCASE MANAGEMENT / SOCIAL SERVICE TRANSITION PLAN - PROGRESS NOTE PLAN: Transition Options Being Explored Will Continue to Follow for Support and Progression Towards Final Transition Plan BARRIERS TO TRANSITION: Medical barriers:See below Monitor diarrhea IV Cefepime twice a day and IV Vancomycin twice a day Potassium chloride 20 mEq at 75 ml/hr Radiation treatments to pancreas- radiation sim planning completed to lung PT/OT following Surgery on 10/24- right index finger amputation by Dr. Casas Pathology pending Octreotide 200 mcg injection every eight hours IV magnesium replacement- magnesium- 1.5 DOES ACCEPTING FACILITY REQUIRE COVID TESTING BEFORE DISCHARGE: Needs one negative test within 24-48 hours COMMENTS / PATIENT AND FAMILY RESPONSE TO PLAN: EMR reviewed and plan of care discussed with digital imaging specialistShoaib Frazier continues to receive IV antibiotics. Patient did have surgery on 10/24- right index finger amputation and tolerated this well. Radiation continues. Continue to monitor ongoing stools- did have 10 stools yesterday- C. Diff is negative. Pathology is pending. Per Dr. Burgos- ID depending on results- IV antibiotics may be discontinued. 10/31- Did update [facility] that Blair prefers to stay in [place] [facility]. [facility] her once her radiation is completed- if she would like to transfer closer to home. Patient profiled to [place] [facility]'s via Fluid-[facility]. [facility] is able to offer a bed in [place] once she is clinically stable. Did contact patient's daughter Vanessa Stafford at [phone] today to provide an update. Dr. Thomas anticipates Blair may be ready for discharge early next week. Did let her know that she has twobed offers- either [facility] in [place] or [facility]. [place] [facility] is approved. Patient did not have any other questions for CM at this time. IS PATIENT'S ADMISSION ASSOCIATED WITH TIA, ISCHEMIC, OR HEMORRHAGIC STROKE?: No PATIENT / SUBSTITUTE DECISION MAKER GOAL UPON TRANSITION: First Choice: PICC Line Swing Bed Transitional Care IV Antibiotics ANTICIPATED NEEDS UPON TRANSITION: PICC Line Swing Bed Transitional Care IV Antibiotics RESOURCE(S) PROVIDED: Placement and Transportation ANTICIPATED MODE OF TRANSPORT UPON TRANSITION: [facility] (P:[phone]) [employer] Wheelchair (P: [phone]) ANTICIPATED MODE OF TRANSPORT TO AND FROM FOLLOW UP APPOINTMENTS: As arranged by accepting facility VERIFIED CORRECT PHARMACY IS ENTERED FOR DISCHARGE: No Will verify once discharge destination is determined TRANSITION ROUNDING COMPLETED WITH THE FOLLOWING: Patient / family Laminating Machine Offbearer digital imaging specialist Discussed in person SIGNED: BON Marx, RN, PCCN-K, [facility] Hematology/Oncology Laminating Machine Offbearer Alpha Pager* [phone] hysical Therapy - Jose Felder SPT - 11/03/2020 3:00 PM ASSISTANT SURVEYOR PHYSICAL THERAPY Acute Care Treatment Note RECOMMENDATIONS Assessment: Patient remains weak at this time. Requires Silvina x1 for squat pivot transfer to chair - independent at baseline. Patient would continue to benefit from skilled PT upon discharge at a [facility]- patient now agreeable 6-Clicks Basic Mobility Score: 16 Daily activity prescription: Assist patient to chair 3 times per day for 30 to 60 minutes or for allmeals. Use Ax1 Squat pivot transfer Encourage patients to do personal cares when sitting up. Use bathroom or commode rather than bedpan. Anticipated D/C Service needs: Low intensity setting Anticipated Assistive Device needs: Manual WC SUBJECTIVE Patient agreeable to therapy session. Requesting to use restroom - nsg present performing cares. Pain: At rest: Patient reports no pain. With activity: Patient reports no pain. OBJECTIVE Precautions: high risk hazardous medication, fall risk, pressure ulcer risk, contact precautions Observation: resting in bed upon arrival Vitals: 11/03/20 1427 BP: 105/56 Pulse: 82 Resp: 18 Temp: 97.6 F (36.4 C) SpO2: 97% Lab Results Component Value Date HEMOGLOBIN 9.8 (L) 11/03/2020 Functional Mobility: Bed mobility: modified independent bed rails Supine to Sit: modified independent bed rails Sit to Supine: modified independent - bed rails Sit to/from Stand: minimal assistance Stand Pivot: minimal assistance Comments: Patient used squat pivot transfer from EOB to/from commode with Silvina x1, independent withperi cares and clothing management. Silvina to wash hands at sink due to bandage on R index finger. Therapeutic Exercises: Patient performed 10 reps of bilateralseatedLE exercises:seated marching, resisted hip abduction/adduction,resisted knee flexion/extension, ankle pumps Other: Patient resting in bed at end of session. Bedside table, call light, and phone in reach. bed alarmon Patient Education:Patientwas educated on POCtoday through explanation and demonstration. Theyaccepted teachingand verbalized understanding. Goals: Ongoing PLAN Continue plan of care. Patient will continue to benefit from skilled therapy to increase independence with functional transfers and increase activity tolerance. Treatment Today: Gait Training: minutes Therapeutic Exercise: 10 minutes Therapeutic Activity: 17 minutes TOTAL TIMED CODES: 27 minutes TREATMENT TOTAL TIME: 27 minutes Raechelle Salzer, SPT STANT SURVEYOR Associated attestation - Mariah Hedrick PT - 11/03/2020 3:24 PM CSTThis practitioner was present and in the room for the entire session, guiding the student in servicedelivery. Documentation was edited and reviewed by this practitioner prior to signature application. Mariah Hedrick PT Alpha pager: [phone] Nutrition Team - Emili Hernandez RD, LD - 11/03/2020 2:20 PM CST Nutrition Therapy Follow Up Hospital Day: 16 days Active Problems: Pancreatic cancer, had been undergoing combined therapy, chemo on hold, on radiation Osteomyelitis right index finger s/p amputation 3/ Severe diarrhea from a combination of short gut, chemoradiation, and antibiotic therapy Right leg ulcer Hypomagnesemia Hypophosphatemia PMH: T2DM, Diabetic ulcer of heel, HTN, Tobacco abuse, Iron deficiency, NSTEMI, Hx of colon cancer, s/p hemicolectomy with ileostomy, liver cancer s/p partial hepatic resection, COPD Recommendations: 1) Encourage intake of small, frequent (5-6) meals t/o the day Avoid food and drinks high in sugar Avoid caffeine 2) Encourage beverages between meals, not with meals or snacks 3) Encourage Banatrol (banana flakes) 2-3 times per day mixed in applesauce to help thicken stools Will continue to send applesauce as PM snack 4) Add daily for micronutrient support in short bowel syndrome/malabsorption/wound healing ? Chewable MVI daily - patient currently refusing ? Calcium + Vitamin D supplement ? If patient has had more than 100 cm of terminal ileum removed, monthly B-12 injections may be required and may need additional fat-soluble vitamins (A, D, E, K) ? Zinc and selenium related to chronic diarrhea ? Recommend Oral Nutrition Supplement Drink to promote optimal energy and protein intake 5) Recommend TPN given malabsorption with frequency of diarrhea. Goal TPN to meet needs 1500 total kcal, 80 gm protein, 295 lipid kcal, 885 CHO kcal/day Malnutrition Summary Malnutrition Assessment Date: 11/03/20 Severe protein-calorie malnutrition Malnutrition Characteristics in the Context of Chronic Illness (greater than 3 months): Energy Intake: Less than or equal to 75% intake of estimated energy needs for greater than or equal to 1 month Severe Weight Loss: Greater than 20% in 1 year Subcutaneous Fat Loss: Moderate Muscle Loss: Moderate Interventions: Monitor oral intake/advance diet as tolerated;Supplement diet with ONS (oral nutrition supplements)/nutrient dense foods;Vitamin/mineral supplementation NUTRITION ASSESSMENT Visited with patient this afternoon. Pt voices that appetite is good, she voices finding good food options on the menu. She doesn't like the probiotic yogurt that has been sent. She voices that she mayhave a family member pick her up some yogurt from the store. Recommended one with probiotics to helpreplenish gut bacteria. Pt wants to keep receiving applesauce, is mixing small amounts of Banatrol (banana flakes) in it, likely not eating enough daily to see benefit in stools. Recommended amount is 3 packets daily, but pt declines that dose. Pt continues to have frequent loose stools. Pt is receiving radiation for her pancreatic cancer. Anthropometrics: Height: 149.9 cm (4' 11") Admission Weight: Weight: 52.8 kg (116 lb 6.5 oz) as of 10/18/2020 per bed scale Most Recent Weight: Weight: 56.4 kg (124 lb 5.4 oz) (11/03/20 0500) per bed scale Lowest Weight Since Admission: 52.2 kg Weight Change: +8 lb since admission BMI: Body mass index is 25.11 kg/m. IBW: 45 kg %IBW: 117% (based on admit weight) Usual Body Weight: Unknown at this time Unintentional Weight Loss:Pt has lost 50 lb (30%) in <1 year AND 14 lb (11%) in 1 month, both clinically significant.Pt weighed ~180-190 lb in 2019, and has been losing weight since per EMR. Estimated Needs: 1450-1600kcal/day(30kcal/kgUsing: Admission Weight) 65-80gm protein(1.3-1.5gm/kg Using:Admission Weight) Fluids per MD Estimated average intake over the last 3 days: 1524 kcal and 59 gm protein, which meets: 100 % of estimated kcal needs and 91 % of estimated protein needs. Intake Records: Intake Prior to Admit: Less than 75% of estimated energy requirements for greater than or equal to 1month Patient voices decreased intake d/t frequent diarrhea. She voices that she chronically has diarrhea,but that it has increased significantly since she started radiation 2 weeks ago. She voices normallyeating1-2mealsdaily, her main meal being in the evening with her family. Pt lives with her children.She voices that she has been trying to eat bananas and potatoes for extra potassium.She voices that her daughter bought her a bunch of different nutritional drinks but that she doesn't like them. Pt voices liking to drink water and 1 regular coke throughout the day. Lunch: sandwich (a bun with meat and cheese), or plain pasta with butter, salt and pepper Supper: meat (shrimp, roast) with mashed potatoes, or fettuccine magi pasta with shrimp Current Intake: Adequate intake the last 7 days, yet likely malabsorbing d/t frequency of diarrhea. Current Diet: Nutrition (From admission, onward) Start Ordered 11/03/20 1425 SNACKS Once info Comments: PM: applesauce + cookie (vary) 11/03/20 1420 10/24/201949 ADVANCE DIET TOLERATED ONCE 10/24/20194710/24/20 1950 Diet - Diabetic Now Question: Modified Diets Answer: Diabetic 10/24/20 19410/19/20 170 Supplement [facility]; Boost Breeze BID BID Comments: Please add water to drink to mute flavor. Give supplement cold with medications twice a day. The supplement is an intervention for identified nutrition risk factors. * Do not give if patient is NPO (unless the orders specify NPO with supplement) or if medication should not be given with food. Question Answer Comment Location [facility] Dietary Supplement Boost Breeze 10/19/20 1232 10/19/20 1700 Supplement [facility]; Supplement per RD BID BID Comments: Banana flakes/Banatrol (located in pt's room): mix in pudding or applesauce BID to help thicken stools. Question Answer Comment Location [facility] Dietary Supplement Supplement per RD 10/19/20 1234 Physical Assessment: Edema: (per solar site assessment specialist at 0920 today) ? Generalized Edema None ? LLE Edema Trace ? RLE Edema Trace GI Assessment: ? Abdominal exam: Non-tender and Soft with Active, Audible bowel sounds, per solar site assessment specialist at 0920 today. ? Stool Frequency: 4-10x/day over the last 3 days Wounds/Pressure Points: (per solar site assessment specialist at 0920 today) ? Ankle Right ? Coccyx Blanchable Redness ? Elbow Left, Right, Blanchable Redness ? Heel Left, Right, Blanchable Redness Functional Status: PT Following OT Following Nutrition Focused Physical Exam: Completed by RD on 11/03/2020 Below the Eye (fat): Slightly dark circles, somewhat hollow look (mild-moderate)(Moderate) Oriental Orthodox (muscle): Hollow, scooping, depression (severe) Buccal (fat): Flat cheeks (moderate) Clavicle (muscle): Some protrusion of bone (mild-moderate)(Moderate) Shoulder (muscle)/Deltoid muscle: Acromion process slightly protrudes (mild-moderate)(Moderate) Triceps/Biceps (fat): Some depth to pinch, but not ample (mild-moderate) Hand/Interosseous (muscle): Slightly depressed (mild-moderate) Thigh (muscle): Mild depression on inner thigh (mild-moderate)(Moderate - Pt uses wheelchair primarily) Calf (muscle): Not well developed (mild-moderate)(Moderate - Pt uses wheelchair primarily) Nutritionally-Relevant Medications, Vitamins and Minerals: Antibiotics, Lomotil, Glucotrol XL, CS Novolog, Creon, Imodium, Thera-M, statin, Vitamin K, potassium, warfarin Nutritionally-Relevant Biochemical Data: (11/03/2020) Glucose 302 H Sodium 133 L Phosphorus 2.2 L Magnesium 1.4 L Albumin 1.8 L Allergies/Food Intolerance: Blair is allergic to penicillin; adhesives; bactericin [bacitracin]; cortisporin [dqeirzjr-juyvfatvv-zv]; hydrocortisone [cortizone]; levofloxacin; lincocin; medihoney ca alginate 2"x2" [alginate - carboxymethylcellulose - silver]; monistat [tioconazole]; septra [sulfameth oxazole w-trimethoprim]; silvadene [silver sulfadiazine]; silver picrate; soap; sodium acetate; sulfa drugs; sulfamethoxazole w-trimethoprim; tpn electrolytes ii [lypholyte]; and xeroform [bismuth tribromoph-petrolatum]. Culturally Pentecostalism Needs: no INTERVENTIONS Encouraged adequate calories and optimal protein in small, frequent meals and snacks Will send snacks and supplements BID Provided TPN recommendations Conducted NFPE EMR reviewed MONITORING/EVALUATION Monitor ability to consume and tolerate adequate intake to approximate estimated needs with accomodation of preferences and tolerances until intake is sustained within desirable limits Monitor I&O, weight trends, nutrition-related labs and medications, clinical status, and planof care r/t need for nutrition intervention and provide as warranted Nutrition Therapy will reassess every 1-[address], LRD Alpha Pager # [phone] STANT SURVEYOR Occupational Therapy - Susu Moise OTR/Jason - 11/03/2020 12:45 PM ASSISTANT SURVEYOR Occupational Therapy Acute Care Progress Note Impression/Recommendations Recommend low-intensity therapy setting, upon discharge with medical stability. Pt is not safe to return home. Will continue to update. Patient demonstrating decreased endurance and strength, and demonstrates below baseline transfers, all of which decreases independence with ADL's and IADL's. Patient has become progressively weaker and is requiring min-modA x2 with SPT's. She completed ADL's with SBA-modA in prior session. Completed BUE exercises with 2# this date. OT will continue to follow acutely. Objective Cognition: Alert and oriented x4. Pleasant to work with this date. 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 U/E: U/E exercise performed to promote joint integrity, reduce risk of contractures, facilitate enhancement of strength and endurance to further independence with ADLs/IADLs. Pt completed BUE AROM 10 reps x1 for all motions/planes, with 2# added weight to further improve strengthening - increased difficulty noted with RUE shoulder compared to LUE (no weight was used as it was too difficult). Patient alsocompleted finger/hand/wrist exercises for RUE - 10 reps x1 (provided patient with exercise handout).OT provided education on correct technique, speed and end range. Pt given rest break after each exercise. Fatigue and weakness noted. ADLs: Feeding: Patient required setup of ice cream and a spoon - needed assistance to remove cover from ice cream. Able to feed self independently. Transfers: Bed: Pt is able to sit up at EOB with SBA. Required min-modA to complete sit to supine (assistance needed to lift up BLE's). At the end of the session, patient was left seated safely in bed. Call light, phone, and side table were all placed within patient reach. Informed to call a nurse if needing to get up or any additionalassistance. Pt verbalized understanding. Pain: No pain observed or reported this date. Education Education/Training provided: Role of OT, plan of care, ADL's, UE exercise, transfers Learners: Patient Readiness: Acceptance Method of Training: Verbal education, demonstration Response: Verbalized/demonstrated understanding, will benefit from continued reinforcement Adaptive Equipment Recommendations Adaptive Equipment Recommended: TBA Adaptive Equipment Available: toilet safety frame, hand held shower, extended tub bench, airline stewardess, wheelchair and front-wheeled walker Plan to obtain adaptive equipment: To further assess. Goals Patient/Family Stated Goal for Session: none stated, agreeable to therapy session Short Term Goals: Patient will tolerate 15-30 minutes U/E exercise to further increase independence with ADL/IADLs (ongoing) Patient will complete grooming task safely standing at the sink withSBAusing adaptive equipment as needed. (ongoing) Patient will complete LB dressing safely withSBAusing adaptive equipment as needed. (ongoing) Patient will complete toileting safely withSBAusing adaptive equipment as needed. (ongoing) Patient will complete functional transfers safely withSBAusing adaptive equipment as needed. (ongoing) Patient will further participate with cognitive assessment to increase safety with functional tasks. Patient will have AE in place to increase safety with ADLs by discharge Patient continues to progress towards goals. Charges Treatment/Minutes: Today's Evaluation/Treatment Therapeutic exercise: 24 minutes Total Treatment Time: 24 minutes Treatment Session / Weekly Assessment/Plan (Day 5): Patient has recently demonstrated a decline in her functional ability and overall strength. She is required assistance of 1 for heavy ADL's (she is able to complete light ADL's such as feeding and grooming with setup). Pt required modA x2 to complete SPT transfer previously (whereas she was initially completing with CGA-Silvina). Pt has been completing exercises to manage ROM and edema in RUE index finger where she had her amputation at the PIP joint. Pt is tolerating BUE exercises with use of 2#, however it is very effortful and pt fatigues quickly. Continue POC. Therapist Alpha Pager Number [phone] are Planning - Elian mAanda, JESSICA - 11/03/2020 3:23 AM ASSISTANT SURVEYOR Problem: RISK FOR FALLS Goal: FALL PREVENTION BEHAVIOR Description: DEFINITION: Personal or family respiratory care specialist actions to minimize risk factors that might precipitate falls in the personal environment. 1=Never demonstrated, 2=Rarely demonstrated, 3=Sometimes demonstrated, 4=Often demonstrated, 5=Consistently demonstrated. Outcome: NOC Rating 5 Flowsheets (Taken 11/03/2020 0321) Target Score: 5 Plan of care reviewed with: Patient Patient specific goal for the day: Patient will remain free of falls. Patient specific goal for the stay: Patient will remain fall/injury free. Achieve goal for stay: By discharge Patient Progress: Patient has used the call light appropriately for assistance with out of bed activities. Bed alarm is on, patient states she will continue to call. are Planning - Brittany Rubin RN - 11/02/2020 6:55 PM ASSISTANT SURVEYOR Problem: DIARRHEA Goal: BOWEL ELIMINATION Description: Description: Formation and evacuation of stool. 1 = Severely compromised, 2 = Substantially compromised, 3 = Moderately compromised, 4 = Mildly compromised, 5 = Not compromised. Outcome: NOC Rating 3 Flowsheets (Taken 11/02/2020 1853) Plan of care reviewed with: Patient Patient specific goal for the day: Pt will have adequte intake this shift Patient specific goal for the stay: Manage diarrhea Achieve goal for stay: By discharge Patient Progress: Pt had approximatley 5-8 stools this shift continue to be loose, and after eating.Continues with octriotide, lomotil, and immuodium. Pt has been eating well this shift. Will continueto monitor. Problem: RISK FOR FALLS Goal: FALL PREVENTION BEHAVIOR Description: DEFINITION: Personal or family respiratory care specialist actions to minimize risk factors that might precipitate falls in the personal environment. 1=Never demonstrated, 2=Rarely demonstrated, 3=Sometimes demonstrated, 4=Often demonstrated, 5=Consistently demonstrated. Outcome: NOC Rating 5 Flowsheets (Taken 11/02/20201850) Plan of care reviewed with: Patient Patient specific goal for the day: Pt will remain free from falls Patient specific goal for the stay: No fall this hospital stay. Achieve goal for stay: By discharge Patient Progress: Pt using call light appropriately this shift. Up with two to BSC. Continue high fall risk preacutions. Bed alarm on will continue to monitor. are Planning - Brittany Rubin RN - 11/02/2020 6:52 PM ASSISTANT SURVEYOR Problem: RISK FOR FALLS Goal: FALL PREVENTION BEHAVIOR Description: DEFINITION: Personal or family respiratory care specialist actions to minimize risk factors that might precipitate falls in the personal environment. 1=Never demonstrated, 2=Rarely demonstrated, 3=Sometimes demonstrated, 4=Often demonstrated, 5=Consistently demonstrated. Outcome: NOC Rating 5 Flowsheets (Taken 11/02/20201850) Plan of care reviewed with: Patient Patient specific goal for the day: Pt will remain free from falls Patient specific goal for the stay: No fall this hospital stay. Achieve goal for stay: By discharge Patient Progress: Pt using call light appropriately this shift. Up with two to BSC. Continue high fall risk preacutions. Bed alarm on will continue to monitor. STANT SURVEYOR Occupational Therapy - Susu Moise OTR/L - 11/02/2020 4:45 PM CSTAttempted to see patient this date. Upon arrival to pt's room, she was getting ready to leave for radiation treatment. Will follow up tomorrow as able/appropriate. Susu Moise MOTR/L Pager #[phone] hysical Therapy - Mariah Hedrick PT - 11/02/2020 3:19 PM CSTPT continues to follow patient. Attempted to see patient, but patient gone from room at radiation.Will follow-up as appropriate. 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 Casas Pathology pending Octreotide 200 mcg injection every eight hours IV magnesium replacement- magnesium- 1.5 DOES ACCEPTING FACILITY REQUIRE COVID TESTING BEFORE DISCHARGE: Needs one negative test within 24-48 hours COMMENTS / PATIENT AND FAMILY RESPONSE TO PLAN: EMR reviewed and plan of care discussed with digital imaging specialist- RadhaLo Frazier continues to receive IV antibiotics. Patient did have surgery on 10/24- right index finger amputation and tolerated this well. Radiation continues. Continue to monitor ongoing stools- improving- C. Diff is negative. Pathology is pending. Per Dr. Burgos- ID depending on results- IV antibiotics may be discontinued. 10/31- Did update [facility] that Blair prefers to stay in [facility] for now. They wouldbe able to accept her once her radiation is completed- if she would like to transfer closer to home. Patient profiled to [place] [facility]'s via Fluid[facility]1. [facility] in [place] once she is clinically stable. Did contact patient's daughter Vanessa Stafford at [phone] to provide an update and that patient would like to be profiled to [facility] for placement. Will keep Vanessa updated in regards to discharge destination and date. Update also provided to Dr. Springer. Patient did not have any other questions for CM at this time. IS PATIENT'S ADMISSION ASSOCIATED WITH TIA, ISCHEMIC, OR HEMORRHAGIC STROKE?: No PATIENT / SUBSTITUTE DECISION MAKER GOAL UPON TRANSITION: First Choice: PICC Line Swing Bed Transitional Care IV Antibiotics ANTICIPATED NEEDS UPON TRANSITION: PICC Line Swing Bed Transitional Care IV Antibiotics RESOURCE(S) PROVIDED: Placement and Transportation ANTICIPATED MODE OF TRANSPORT UPON TRANSITION: [facility] [employer] Wheel[facility] (P:[phone]) [facility] Wheelchair (P: [phone]) ANTICIPATED MODE OF TRANSPORT TO AND FROM FOLLOW UP APPOINTMENTS: As arranged by accepting facility VERIFIED CORRECT PHARMACY IS ENTERED FOR DISCHARGE: No Will verify once discharge destination is determined TRANSITION ROUNDING COMPLETED WITH THE FOLLOWING: Patient / family Laminating Machine Offbearer digital imaging specialist Discussed in person SIGNED: BON Marx, RN, [facility] Hematology/Oncology Laminating Machine Offbearer Alpha Pager* [phone] are Planning - Kiirll Buck RN - 11/02/2020 8:07 AM ASSISTANT SURVEYOR Patient comfortable this shift. Up to the commode several times but no bowel movements. Will continue with plan of care. Problem: DIARRHEA Goal: BOWEL ELIMINATION Description: Description: Formation and evacuation of stool. 1 = Severely compromised, 2 = Substantially compromised, 3 = Moderately compromised, 4 = Mildly compromised, 5 = Not compromised. Flowsheets (Taken 11/02/2020805) Target Score: 4 Plan of care reviewed with: Patient Patient specific goal for the day: Patient will have less diarrhea than yesterday Patient specific goal for the stay: Treat diarrhea Achieve goal for stay: By discharge Patient Progress: No bowel movements this shift. are Planning - Cori Hurtado RN - 11/02/2020 12:07 AM ASSISTANT SURVEYOR Problem: RISK FOR FALLS Goal: FALL PREVENTION BEHAVIOR Description: DEFINITION: Personal or family respiratory care specialist actions to minimize risk factors that might precipitate falls in the personal environment. 1=Never demonstrated, 2=Rarely demonstrated, 3=Sometimes demonstrated, 4=Often demonstrated, 5=Consistently demonstrated. Flowsheets (Taken 11/02/2020 0007) Initial Score: 3 Patient specific goal for the day: Pt will remain free from falls Patient Progress: patient using call ight appropriately before ambulating. Up with 1-2 pivot to commode. Bed alarm in place, will continue to monitor. STANT SURVEYOR Occupational Therapy - Susu Moise OTR/Jason - 11/01/2020 3:47 PM ASSISTANT SURVEYOR Occupational Therapy Acute Care Progress Note Impression/Recommendations Recommend low-intensity therapy setting, upon discharge with medical stability. Pt is not safe to return home. Will continue to update. Patient demonstrating decreased endurance and strength, and demonstrates below baseline transfers, all of which decreases independence with ADL's and IADL's. Patient has become progressively weaker and is requiring min-modA x2 with SPT's. She completed ADL's with SBA-modA in prior session. Completed BUE exercises with 2# this date. OT will continue to follow acutely. Objective Cognition: Alert and oriented x4. Pleasant to work with this date. U/E: U/E exercise performed to promote joint integrity, reduce risk of contractures, facilitate enhancement of strength and endurance to further independence with ADLs/IADLs. Pt completed BUE AROM 5-10 reps x1 for all motions/planes, with 2# added weight to further improve strengthening - increased difficulty noted with RUE shoulder compared to LUE. Patient also completed finger/hand/wrist exercises for RUE - 5 reps. OT provided education on correct technique, speed and end range. Pt given rest break after each exercise. Fatigue and weakness noted. Some Edema noted in RUE index finger stump. Patient educated on completion of ROM at RUE index MCP joint throughout the day, to prevent any stiffness or contractures from developing - pt verbalized and demonstrated understanding. States she completed her finger exercises independently this date. Comments: Discussed with patient the option of having a RUE index finger prosthetic made for her verus relearning pincer grasp for tasks with her amputated stump. 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 ADLs: Feeding: Independent Transfers: Patient remained in bed for duration of therapy session. At the end of the session, patient was left seated safely in bed. Call light, phone, and side table were all placed within patient reach. Informed to call a nurse if needing to get up or any additionalassistance. Pt verbalized understanding. Pain: Patient reports her RUE index finger pain is improved this date - does not rate pain. Education Education/Training provided: Role of OT, plan of care, ADL's, UE exercise Learners: Patient Readiness: Acceptance Method of Training: Verbal education, demonstration Response: Verbalized/demonstrated understanding, will benefit from continued reinforcement Adaptive Equipment Recommendations Adaptive Equipment Recommended: TBA Adaptive Equipment Available: toilet safety frame, hand held shower, extended tub bench, airline stewardess, wheelchair and front-wheeled walker Plan to obtain adaptive equipment: To further assess. Goals Patient/Family Stated Goal for Session: none stated, agreeable to therapy session Short Term Goals: Patient will tolerate 15-30 minutes U/E exercise to further increase independence with ADL/IADLs (ongoing) Patient will complete grooming task safely standing at the sink withSBAusing adaptive equipment as needed. (ongoing) Patient will complete LB dressing safely withSBAusing adaptive equipment as needed. (ongoing) Patient will complete toileting safely withSBAusing adaptive equipment as needed. (ongoing) Patient will complete functional transfers safely withSBAusing adaptive equipment as needed. (ongoing) Patient will further participate with cognitive assessment to increase safety with functional tasks. Patient will have AE in place to increase safety with ADLs by discharge Patient continues to progress towards goals. Charges Treatment/Minutes: Today's Evaluation/Treatment Therapeutic exercise: 23 minutes Total Treatment Time: 23 minutes Treatment Session 11/28 Weekly Assessment/Plan (Day 5): Continue POC. 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 Casas Octreotide 200 mcg injection every eight hours IV magnesium replacement- magnesium- 1.5 DOES ACCEPTING FACILITY REQUIRE COVID TESTING BEFORE DISCHARGE: Needs one negative test within 24-48 hours COMMENTS / PATIENT AND FAMILY RESPONSE TO PLAN: EMR reviewed and plan of care discussed with digital imaging specialist- [place]. Blair continues to receive IV antibiotics. Patient did have surgery on 10/24- right index finger amputation and tolerated this well. Radiation continues. Continue to monitor ongoing stools- C.diff to be collected. 10/31- Did update [facility] that Blair prefers to stay in [facility] for now. They wouldbe able to accept her once her radiation is completed- if she would like to transfer closer to home. Patient profiled to [place] [facility] they are going to verify the dosage of her antibiotics andget a cost from pharmacy. She may be able to bring in her own chemotherapy if this is restarted. Did contact patient's daughter Vanessa Stafford at [phone] to provide an update and that patient would like to be profiled to [facility] for placement. Will keep Vanessa updated in regards to discharge destination and date. Update also provided to Dr. Springer. Patient did not have any other questions for CM at this time. IS PATIENT'S ADMISSION ASSOCIATED WITH TIA, ISCHEMIC, OR HEMORRHAGIC STROKE?: No PATIENT / SUBSTITUTE DECISION MAKER GOAL UPON TRANSITION: First Choice: PICC Line Swing Bed Transitional Care IV Antibiotics ANTICIPATED NEEDS UPON TRANSITION: PICC Line Swing Bed Transitional Care IV Antibiotics RESOURCE(S) PROVIDED: Placement and Transportation ANTICIPATED MODE OF TRANSPORT UPON TRANSITION: [facility] Wheelchair (P:[phone]) [employer] Wheelchair (P: [phone]) ANTICIPATED MODE OF TRANSPORT TO AND FROM FOLLOW UP APPOINTMENTS: As arranged by accepting facility VERIFIED CORRECT PHARMACY IS ENTERED FOR DISCHARGE: No Will verify once discharge destination is determined TRANSITION ROUNDING COMPLETED WITH THE FOLLOWING: Patient / family Laminating Machine Offbearer digital imaging specialist Discussed in person SIGNED: BON Marx, RN, PCCN-K, [facility] Hematology/Oncology Laminating Machine Offbearer Alpha Pager* [phone] OCN / Skin Team - Phuong Aj RN - 11/01/2020 12:13 PM CSTWound Care Nurse Consult: Indication for consult: Consult received for low Beau Scale score of 18 and request by bedside nurse. Patient has been declining use of prevalon boots, does have occasional redness noted to heels. Upon assessment patient is completely offloaded using pillow under lower legs. Assessment: No areas of pressure related skin breakdown observed, blanchable redness is noted to L posterior heel. Recommendations/Plan: Initiate pressure relief interventions based on risk: Turn and reposition every 2 hours-use TAPS Monitor under and around all medical devices Limit layers under patient to flat sheet and incontinence product only Interdry AG to skin folds for moisture management, change prn Check for incontinence every 2 hours Protective ointment to charu-area daily and after each incontinent episode Head of bed 30 degrees or less as tolerated Mepilex border to sacrum, change every 5 days and prn and offload heels using pillow at all times, due to patient refusing prevalon boots. cold molding press operator to sign off. Please re-consult prn. STANT SURVEYOR Care Planning - Danuta Ricardo RN - 11/01/2020 11:19 AM ASSISTANT SURVEYOR Problem: RISK FOR INFECTION Goal: INFECTION SEVERITY Description: DEFINITION: Severity of signs and symptoms of infection. 1 = Severe, 2 = Substantial, 3 = Moderate, 4 = Mild, 5 = None. Outcome: NOC Rating 4 Flowsheets (Taken 11/01/2020 1118) Plan of care reviewed with: Patient Patient specific goal for the day: Pt will notify nurisng of s.sx of fever or chills, Patient Progress: Pt c/o no fever or chills, on IV abx, will cont to monito r STANT SURVEYOR Physical Therapy - Jose Felder SPT - 11/01/2020 11:06 AM CST PHYSICAL THERAPY Acute Care Treatment Note RECOMMENDATIONS Assessment: Patient remains weak at this time. Requires Silvina x1 for squat pivot transfer to chair - independent at baseline. Patient would continue to benefit from skilled PT upon discharge at a [facility]- patient now agreeable 6-Clicks Basic Mobility Score: 16 Daily activity prescription: Assist patient to chair 3 times per day for 30 to 60 minutes or for allmeals. Use Ax1 Encourage patients to do personal cares when sitting up. Use bathroom or commode rather than bedpan. Anticipated D/C Service needs: Low intensity setting Anticipated Assistive Device needs: Manual WC SUBJECTIVE Patient agreeable to therapy session. Pain: At rest: Patient reports no pain at this time OBJECTIVE Precautions: high risk hazardous medication, fall risk, pressure ulcer risk, contact precautions, GIprecautions Observation:restingin bedupon arrival of PT. Bed alarm on Gait belt donned for all out of bed activity Vitals: 11/01/20 0832 BP: 134/80 Pulse: 80 Resp: 18 Temp: 97.1 F (36.2 C) SpO2: 99% Lab Results Component Value Date HEMOGLOBIN 10.5 (L) 11/01/2020 Functional Mobility: Bed mobility: modified independent bed rails Supine to Sit: modified independent bed rails Sit to Supine: not assessed Sit to/from Stand: minimal assistance Stand Pivot: minimal assistance Comments: Patient used squat pivot transfer from EOB to lift chair with Silvina x1, Sit to Stand x1 Silvina x1 Therapeutic Exercises: Patient performed 10 reps of bilateral seated LE exercises:seated marching, resisted hip abduction/adduction, resisted knee flexion/extension, ankle pumps Other: Patient sitting up in chair at end of session. Bedside table, call light, and phone in reach. Chair alarm on Patient Education:Patientwas educated on POCtoday through explanation and demonstration. Theyaccepted teachingand verbalized understanding. Interdisciplinary Communication: nsg present intermittently Goals: Ongoing PLAN Continue plan of care. Patient will continue to benefit from skilled therapy to increase function strength and mobility. Treatment Today: Gait Training: minutes Therapeutic Exercise: minutes Therapeutic Activity: 29 minutes TOTAL TIMED CODES: 29 minutes TREATMENT TOTAL TIME: 29 minutes EDNA Stephen STANT SURVEYOR Associated attestation - Mariah Hedrick PT - 11/01/2020 1:15 PM CSTThis practitioner was present and in the room for the entire session, guiding the student in servicedelivery. Documentation was edited and reviewed by this practitioner prior to signature application. Mariah Hedrick, PT Alpha pager: [phone] Pharmacy - Ella Rick, PHARM D - 11/01/2020 8:59 AM CST Ms. Stafford continues on Vancomycin per pharmacy protocol for osteomyelitis of finger. The patient is on day 11 of receiving Vancomycin and current dose is 1000 mg every 24-36 hours depending on levels. Labs: WBC Date/Time Value Ref Range Status 11/01/2020 05:43 AM 5.0 4.0 - 11.0 K/uL Final 10/31/2020 05:16 AM 5.9 4.0 - 11.0 K/uL Final 10/30/2020 06:35 AM 5.5 4.0 - 11.0 K/uL Final 09/29/2020 4.6 Final 07/01/2020 03:10 PM 5.8 4.0 - 10.2 K/uL Final 09/30/2019 5.20 4 - 11 Final 04/04/2018 03:11 PM 7.0 K/uL Lab Results Component Value Date CREATSERUM 0.61 11/01/2020 CREATSERUM 0.59 (L) 10/31/2020 CREATSERUM 0.59 (L) 10/30/2020 Vancomycin Trough Date/Time Value Ref Range Status 10/29/2020 06:27 AM 16.0 10.0 - 20.0 ug/mL Final Vancomycin Random Date/Time Value Ref Range Status 10/31/2020 09:56 PM 14.0 ug/mL Final Cultures: Lab Results Component Value Date CULTGROWTH No anaerobic growth at 5 days 10/24/2020 CULTGROWTH No growth 10/24/2020 Max Temperature: Temp (24hrs), Av.2 F (36.2 C), Min:97.1 F (36.2 C), Max:97.5 F (36.4 C) Estimated CrCl: CrCl cannot be calculated (Unknown ideal weight.). ml/min Intake/Output: Intake/Output Summary (Last 24 hours) at 11/01/2020 0900 Last data filed at 11/01/2020 0827 Gross per 24 hour Intake 2809 ml Output 900 ml Net 1909 ml Other Active Antimicrobials: Antibiotics (From admission, onward) Start Stop Route Frequency Ordered 11/01/20 0100 vancomycin in dextrose 200 mL IV piggyback (premix) 1,000 mg 11/01 0231 IV One time 11/01/20 0008 10/30/20 2000 vancomycin in dextrose 200 mL IV piggyback (premix) 1,000 mg 10/30 2103 IV One time 10/30/20 1011 10/29/20 0800 vancomycin in dextrose 200 mL IV piggyback (premix) 1,000 mg 10/29 1053 IV One time 10/29/20 0720 10/27/20 1945 vancomycin in dextrose 200 mL IV piggyback (premix) 1,000 mg 10/27 2057 IV One time 10/27/20 1840 10/26/20 0732 vancomycin [place] [facility] 10/26/20 0732 10/26/20 0000 cefepime (MAXIPIME) 2000 mg/20 mL in sterile water IV syringe -- IV Every twelve hours 10/25/20 1338 10/21/20 1700 metroNIDAZOLE (FLAGYL) tablet 500 mg -- PO Three times a day 10/21/20 1550 10/21/20 1700 vancomycin in dextrose 200 mL IV piggyback (premix) 1,000 mg Status: Discontinued 10/26 0732 IV Every twelve hours 10/21/20 1602 10/21/20 1630 cefepime (MAXIPIME) 2000 mg/20 mL in sterile water IV syringe Status: Discontinued 10/25 1338 IV Every eight hours 10/21/20 1550 10/18/20 1700 cefTRIAXone (ROCEPHIN) 1000 mg/10 mL IV syringe in sterile water Status: Discontinued 10/21 1550 IV Every twenty four hours 10/18/20 1547 Assessment/Plan: The ~24 hour level was less than the goal trough of 15-20. The patient was given another 1000 mg dose. Pharmacy will continue to monitor per the pharmacokinetic service policy. Ella Rick, PHARM D are Planning - Kirill Buck RN - 11/01/2020 5:22 AM CSTPatient still experiencing diarrhea this shift. Not as frequent in occurrence but stools are still loose. Continues on anti diarrheal medication. Slept several times throughout the shift. Will continuewith plan of care. Problem: DIARRHEA Goal: BOWEL ELIMINATION Description: Description: Formation and evacuation of stool. 1 = Severely compromised, 2 = Substantially compromised, 3 = Moderately compromised, 4 = Mildly compromised, 5 = Not compromised. Flowsheets (Taken 11/01/2020 0564) Target Score: 4 Plan of care reviewed with: Patient Patient specific goal for the day: Patient will have less diarrhea than yesterday Patient specific goal for the stay: Treat diarrhea Achieve goal for stay: By discharge Patient Progress: One loose bowel movement tonight are Planning - Esther Beard RN - 10/31/2020 5:17 PM ASSISTANT SURVEYOR Problem: DIARRHEA Goal: BOWEL ELIMINATION Description: Description: Formation and evacuation of stool. 1 = Severely compromised, 2 = Substantially compromised, 3 = Moderately compromised, 4 = Mildly compromised, 5 = Not compromised. Flowsheets (Taken 10/31/2020 1710) Initial Score: 3 Target Score: 4 Plan of care reviewed with: Patient Patient specific goal for the day: Patient will have less diarrhea than yesterday Patient specific goal for the stay: Treat diarrhea Achieve goal for stay: By discharge Patient Progress: Patient had one loose bowel movement this shift. MD ordered c.diff stool sample.Continues on anti diarrheal medications. Will continue to monitor. linical Team - Esther Beard RN - 10/31/2020 4:51 PM CSTNotified MD patient had just one small loose stool throughout shift MD would like to continue GI contact isolation and to proceed with getting sample. are Planning - Margot Murillo RD, LRD - 10/31/2020 12:55 PM ASSISTANT SURVEYOR Problem: IMBALANCED NUTRITION: LESS THAN BODY REQUIREMENTS Goal: NUTRITIONAL STATUS: NUTRIENT INTAKE Description: DEFINITION: Nutrient intake to meet metabolic needs. 1=Not adequate, 2=Slightly adequate, 3=Moderately adequate, 4=Substantially adequate, 5=Totally adequate. Outcome: NOC Rating 3 Flowsheets (Taken 10/31/2020 1254) Plan of care reviewed with: Patient Patient specific goal for the day: Pt to consume 5-6 small, frequent meals throughout the day Patient specific goal for the stay: Meet >75% of nutrition needs Patient Progress: Adequate, patient consuming 50-100% of meals and snacks over the past 4 days, meeting >75% of estimated needs. Prior to, pt meeting <50% of estimated needs over the past 4 days due to poor appetite with loose stools and NPO status for procedure. STANT SURVEYOR Case Mgmt - Valery Shukla RN - 10/31/2020 12:51 PM CSTCASE MANAGEMENT / SOCIAL SERVICE TRANSITION PLAN - PROGRESS NOTE PLAN: Transition Options Being Explored Will Continue to Follow for Support and Progression Towards Final Transition Plan BARRIERS TO TRANSITION: Awaiting Placement: Detention/Swing Bed/TCU Medical barriers:See below Monitor diarrhea IV Cefepime twice a day and IV Vancomycin twice a day Potassium chloride 20 mEq at 75 ml/hr Radiation treatments to pancreas- radiation sim planning completed to lung PT/OT following Surgery on 10/24- right index finger amputation by Dr. Casas Octreotide 200 mcg injection every eight hours IV magnesium replacement- magnesium- 1.7 DOES ACCEPTING FACILITY REQUIRE COVID TESTING BEFORE DISCHARGE: Needs one negative test within 24-48 hours COMMENTS / PATIENT AND FAMILY RESPONSE TO PLAN: EMR reviewed and plan of care discussed with digital imaging specialist- [place]. Blair continues to receive IV antibiotics. Patient did have surgery on 10/24- right index finger amputation and tolerated this well. Radiation continues. Did speak with bedside RN- Esther- Blair had questions about TCU/Swing Bed Placement. Visited with Blair at bedside- she would prefer to stay in [place] if TCU is able to provide transportation to and from radiation and follow up appointments if needed instead of her daughter Vanessa providing transportation to and from [place]. Patient has been profiled to [facility] for TCU placement. At this timechemotherapy remains on hold. Blair stated she continues to have diarrhea (six stools documented yesterday). Did update [facility] that Blair prefers to stay in [facility] for now. They would be able to accept her once her radiation is completed- if she would like to transfer closer to home. Patient profiled to [place] [facility]'s via [facility]. [facility]- they are going to verify the dosage of her antibiotics andget a cost from pharmacy. She may be able to bring in her own chemotherapy if this is restarted. Did contact patient's daughter Vanessa Stafford at [phone] to provide an update and that patient would like to be profiled to [facility] for placement. Will keep Vanessa updated in regards to discharge destination and date. Update also provided to Dr. Springer. Patient did not have any other questions for CM at this time. IS PATIENT'S ADMISSION ASSOCIATED WITH TIA, ISCHEMIC, OR HEMORRHAGIC STROKE?: No PATIENT / SUBSTITUTE DECISION MAKER GOAL UPON TRANSITION: First Choice: PICC Line Swing Bed Transitional Care IV Antibiotics ANTICIPATED NEEDS UPON TRANSITION: PICC Line Swing Bed Transitional Care IV Antibiotics RESOURCE(S) PROVIDED: Placement and Transportation ANTICIPATED MODE OF TRANSPORT UPON TRANSITION: [facility] Wheelchair (P:[phone]) [employer] Wheelchair (P: [phone]) ANTICIPATED MODE OF TRANSPORT TO AND FROM FOLLOW UP APPOINTMENTS: As arranged by accepting facility VERIFIED CORRECT PHARMACY IS ENTERED FOR DISCHARGE: No Will verify once discharge destination is determined TRANSITION ROUNDING COMPLETED WITH THE FOLLOWING: Patient / family Laminating Machine Offbearer digital imaging specialist Discussed in person SIGNED: BON Marx, RN, PCCN-K, [facility] Hematology/Oncology Laminating Machine Offbearer Alpha Pager* [phone] ccupational Therapy - Susu Moise OTR/Jason - 10/31/2020 11:52 AM CST Occupational Therapy Acute Care Progress Note Impression/Recommendations Recommend low-intensity therapy setting, upon discharge with medical stability. Pt is not safe to return home. Will continue to update. Patient demonstrating decreased endurance and strength, and demonstrates below baseline transfers, all of which decreases independence with ADL's and IADL's. Patient has become progressively weaker and is requiring min-modA x2 with SPT's. She completed ADL's with SBA-modA. Completed AROM to RUE hand/index finger to prevent stiffness/contracture and promote edema management. OT will continue to follow acutely. Objective Cognition: Alert and oriented x4. Pt requires encouragement to complete tasks independently, as shefrequently insists on having staff do ADL's for her. Educated on needing to participate and work towards independence if she is wanting to return home at some point - pt verbalized understanding. U/E: U/E exercise performed to promote joint integrity, reduce risk of contractures, facilitate enhancement of strength and endurance to further independence with ADLs/IADLs. Pt completed RUE AROM 10 reps x1 for finger and wrist motions/planes. Increased pain in index finger with this - educated to complete within tolerance. OT provided education on correct technique, speed and end range. Pt given rest break after each exercise. Fatigue and weakness noted. Some Edema noted in RUE index finger stump. Patient educated on completion of ROM at RUE index MCP joint throughout the day, to prevent any stiffness or contractures from developing - pt verbalized understanding and demonstrated completion (increased pain). Comments: Pt's RUE index finger amputation was bandaged upon OT arrival. OT un- bandaged finger to complete exercises and re-bandaged upon completion. ADLs: Feeding: Independent Grooming: Pt completed hand hygiene with independence using wet towelette. Dressing: Pt required Silvina to tra brief up to thigh level, and min-modA to tra sweatpants up to thigh level while seated on commode chair (increased difficulty due to pt inability to touch feet to ground as the commode chair is too high for her). Pt required mod-maxA to maintain standing and assistfrom RN to pull pants up around waist. Pt required assistance to tra sweatshirt due to IV/port lines (anticipate patient would be independent with this if lines were not present). Toileting: Pt completes charu cares with SBA while seated. Requires assistance for clothing management. Transfers: Bed: pt required Silvina to complete supine to sitting up EOB with use of bed rail. Required min-modA x2 to complete sit >< stand. Commode: min-modA x2 to complete sit >< stand. At the end of the session, patient was left seated safely in bed. Call light, phone, and side table were all placed within patient reach. Informed to call a nurse if needing to get up or any additionalassistance. Pt verbalized understanding. Pain: Patient reports pain in her RUE index finger amputation - did not rate. Education Education/Training provided: Role of OT, plan of care, ADL's, transfers, UE exercise Learners: Patient Readiness: Acceptance Method of Training: Verbal education, demonstration Response: Verbalized/demonstrated understanding, will benefit from continued reinforcement Adaptive Equipment Recommendations Adaptive Equipment Recommended: TBA Adaptive Equipment Available: toilet safety frame, hand held shower, extended tub bench, airline stewardess, wheelchair and front-wheeled walker Plan to obtain adaptive equipment: To further assess. Goals Patient/Family Stated Goal for Session: none stated, agreeable to therapy session Short Term Goals: Patient will tolerate 15-30 minutes U/E exercise to further increase independence with ADL/IADLs (ongoing) Patient will complete grooming task safely standing at the sink withSBAusing adaptive equipment as needed. (ongoing) Patient will complete LB dressing safely withSBAusing adaptive equipment as needed. (ongoing) Patient will complete toileting safely withSBAusing adaptive equipment as needed. (ongoing) Patient will complete functional transfers safely withSBAusing adaptive equipment as needed. (ongoing) Patient will further participate with cognitive assessment to increase safety with functional tasks. Patient will have AE in place to increase safety with ADLs by discharge Patient continues to progress towards goals. Charges Treatment/Minutes: Today's Evaluation/Treatment Self care/home management: 27 minutes Therapeutic exercise: 17 minutes Total Treatment Time: 44 minutes Treatment Session / Weekly Assessment/Plan (Day 5): Continue POC. Therapist Alpha Pager Number [phone] STANT SURVEYOR Physical Therapy - Jose Felder SPT - 10/31/2020 10:24 AM CST PHYSICAL THERAPY Acute Care Treatment Note RECOMMENDATIONS Assessment: Patient remains weak. Declined any OOB on this date, but with encouragement was willingto do LE exercise. Recommend [facility] which patient is now reluctantly agreeable to. 6-Clicks Basic Mobility Score: 18 Daily activity prescription: Assist patient to chair 3 times per day for 30 to 60 minutes or for allmeals. Use Ax1 Encourage patients to do personal cares when sitting up. Use bathroom or commode rather than bedpan. Anticipated D/C Service needs: Low intensity setting Anticipated Assistive Device needs: Manual WC SUBJECTIVE the patient agreeable to therapy session for LE ex Pain: At rest: Patient reports pain - right hand OBJECTIVE Precautions: high risk hazardous medication, fall risk, pressure ulcer risk, contact precautions Observation: resting in bed upon arrival of PT. Bed alarm on Vitals: 10/31/20 0856 BP: 121/69 Pulse: 85 Resp: 20 Temp: 97.5 F (36.4 C) SpO2: 96% Lab Results Component Value Date HEMOGLOBIN 10.7 (L) 10/31/2020 Functional Mobility: Supine to Sit: Mod Independent with bed rails Sit to supine: Mod Independent with bed rails Therapeutic Exercises: Patient performed 10 reps of bilateral seated LE exercises: seated marching, resisted hip abduction/adduction, resisted knee flexion/extension, ankle pumps Other: Patient resting in bed at end of session. Bedside table, call light, and phone in reach. Bed alarm on Patient Education: Patient was educated on POC today through explanation and demonstration. They accepted teaching and verbalized understanding and demonstrated understanding. Goals: ongoing PLAN Continue plan of care. Patient will continue to benefit from skilled therapy to increase function strength and mobility. Treatment Today: Gait Training: minutes Therapeutic Exercise: 17 minutes Therapeutic Activity: minutes TOTAL TIMED CODES: 17 minutes TREATMENT TOTAL TIME: 17 minutes EDNA Stephen STANT SURVEYOR Associated attestation - Mariah Hedrick PT - 10/31/2020 1:07 PM CSTThis practitioner was present and in the room for the entire session, guiding the student in servicedelivery. Documentation was edited and reviewed by this practitioner prior to signature application. Mariah Hedrick PT Alpha pager: [phone] Nutrition Team - Margot Murillo, RD, LRD - 10/31/2020 10:22 AM CST Nutrition Therapy Follow Up Hospital Day: 13 days Active Problems: Pancreatic cancer, had been undergoing combined therapy with capecitabine with radiotherapy - Capecitabine on hold due to diarrhea. Radiotherapy ongoing. Osteomyelitis right index finger Severe diarrhea from a combination of short gut, chemoradiation, and antibiotic therapy Right leg ulcer Hypomagnesemia PMH: T2DM, Diabetic ulcer of heel, HTN, Tobacco abuse, Iron deficiency, NSTEMI, Hx of colon cancer, s/p hemicolectomy with ileostomy, liver cancer s/p partial hepatic resection, COPD Recommendations: 1) Encourage intake of small, frequent (5-6) meals t/o the day Avoid food and drinks high in sugar Avoid caffeine 2) Encourage beverages between meals, not with meals or snacks 3) Encourage Banatrol (banana flakes) 2-3 times per day mixed in applesauce to help thicken stools Will continue to send applesauce as PM snack Added 4 oz. Probiotic yogurt BID 4) Add daily for micronutrient support in short bowel syndrome/malabsorption/wound healing o Chewable MVI daily - patient currently refusing o Calcium + Vitamin D supplement o If patient has had more than 100 cm of terminal ileum removed, monthly B-12 injections may be required and may need additional fat-soluble vitamins (A, D, E, K) o Zinc and selenium related to chronic diarrhea o Recommend Oral Nutrition Supplement Drink to promote optimal energy and protein intake 5) If diarrhea/malabsorption does not improve, may need to consider supplemental parental nutrition Malnutrition Summary Malnutrition Assessment Date: 10/27/20 Severe protein-calorie malnutrition Malnutrition Characteristics in the Context of Chronic Illness (greater than 3 months): Energy Intake: Less than or equal to 75% intake of estimated energy needs for greater than or equal to 1 month Severe Weight Loss: Greater than 20% in 1 year Subcutaneous Fat Loss: Moderate Muscle Loss: Moderate Interventions: Monitor oral intake/advance diet as tolerated;Supplement diet with ONS (oral nutrition supplements)/nutrient dense foods;Vitamin/mineral supplementation NUTRITION ASSESSMENT Pt appetite improving, consuming adequate calories and protein, however, unsure how much patient is absorbing with short gut and diarrhea. Pt has had 2-8 BMs over the past 4 days. She is on scheduled anti-diarrhea medication TID. Noted low Phosphorus and Mg, replaced per MD. Patient is taking banana flakes, unsure if this is helping although she notes does not mix well with pudding. Encouraged continued use with applesauce. Provided education on diarrhea and needs of short gut, patient attributing diarrhea from antibiotics. Discussed trial of probiotic yogurt while undergoing antibiotic therapy, patient interested and will begin sending BID. Patient has been refusing MVI throughout admission as she states this further exacerbates diarrhea. Discussed essential need for supplementation with diarrhea/short gut- patient not responsive to education, currently refusing further conversations of vitamin supplementation. If diarrhea/likely malabsor ption continue, recommend to consider supplemental parental nutrition. Anthropometrics: Height: 149.9 cm (4' 11") Admission Weight: Weight: 52.8 kg (116 lb 6.5 oz) as of 10/18/2020 per bed scale Most Recent Weight: Weight: 55.1 kg (121 lb 7.6 oz) (10/31/20 0438) per bed scale Lowest Weight Since Admission: 52.2 kg Weight Change: +2.3 kg (5 lb) since admission BMI: Body mass index is 24.53 kg/m. IBW: 45 kg %IBW: 117% (based on admit weight) Usual Body Weight: Unknown at this time Unintentional Weight Loss:Pt has lost 50 lb (30%) in <1 year AND 14 lb (11%) in 1 month, both clinically significant.Pt weighed ~180-190 lb in 2019, and has been losing weight since per EMR. Estimated Needs: 1450-1600kcal/day(30kcal/kgUsing: Admission Weight) 65-80gm protein(1.3-1.5gm/kg Using:Admission Weight) Fluids per MD Estimated average intake over the last 4 days: 1468 kcal and 51 gm protein, which meets: 100 % of estimated kcal needs and 78 % of estimated protein needs. Intake Records: Intake Prior to Admit: Less than 75% of estimated energy requirements for greater than or equal to 1month Patient voices decreased intake d/t frequent diarrhea. She voices that she chronically has diarrhea,but that it has increased significantly since she started radiation 2 weeks ago. She voices normallyeating1-2mealsdaily, her main meal being in the evening with her family. Pt lives with her children.She voices that she has been trying to eat bananas and potatoes for extra potassium.She voices that her daughter bought her a bunch of different nutritional drinks but that she doesn't like them. Pt voices liking to drink water and 1 regular coke throughout the day. Lunch: sandwich (a bun with meat and cheese), or plain pasta with butter, salt and pepper Supper: meat (shrimp, roast) with mashed potatoes, or fettuccine magi pasta with shrimp Current Intake: Adequate, patient consuming 50-100% of meals and snacks over the past 4 days, meeting >75% of estimated needs. Prior to, pt meeting <50% of estimated needs over the past 4 days due to poor appetite with loose stools and NPO status for procedure. Current Diet: Nutrition (From admission, onward) Start Ordered 10/24/201949 ADVANCE DIET TOLERATED ONCE 10/24/20194710/24/201949 Diet - Diabetic Now Question: Modified Diets Answer: Diabetic 10/24/20 19410/19/20 170 Supplement [facility]; Boost Breeze BID BID Comments: Please add water to drink to mute flavor. Give supplement cold with medications twice a day. The supplement is an intervention for identified nutrition risk factors. * Do not give if patient is NPO (unless the orders specify NPO with supplement) or if medication should not be given with food. Question Answer Comment Location [facility] Dietary Supplement Boost Breeze 10/19/20 1232 10/19/20 1700 Supplement [facility]; Supplement per RD BID BID Comments: Banana flakes/Banatrol (located in pt's room): mix in pudding or applesauce BID to help thicken stools. Question Answer Comment Location [facility] Dietary Supplement Supplement per RD 10/19/20 1234 10/19/20 1200 SNACKS Once info Comments: PM: applesauce HS: vanilla pudding 10/19/20 1156 Physical Assessment: Edema: (per solar site assessment specialist at 0950 today) ? LUE Edema Trace ? RUE Edema 1 ? LLE Edema Trace ? RLE Edema Trace GI Assessment: ? Abdominal exam: Tender and Right-sided hernia with Audible bowel sounds, per solar site assessment specialist at 0856today. ? Stool Frequency: 2-4-8-6x/day over the last 4 days WoundsPressure Points: (per solar site assessment specialist at 195 yesterday) ? Ankle Right, Dressed with no drainage ? Coccyx Blanchable Redness ? Elbow Bilateral, Blanchable Redness ? Heel Left, Blanchable Redness, Open with red/yellow wound bed ? Hip Left, Open with red/yellow wound bed ? Thigh Left, Upper, Open with red/yellow wound bed Functional Status: PT Following OT Following Nutrition Focused Physical Exam: Completed by RD on 10/19/20 Below the Eye (fat): Slightly dark circles, somewhat hollow look (mild-moderate)(moderate) Oriental Orthodox (muscle): Hollow, scooping, depression (severe) Buccal (fat): Flat cheeks (moderate) Clavicle (muscle): Some protrusion of bone (mild-moderate)(moderate) Shoulder (muscle)/Deltoid muscle: Acromion process slightly protrudes (mild-moderate)(moderate) Triceps/Biceps (fat): Some depth to pinch, but not ample (mild-moderate)(mild) Hand/Interosseous (muscle): Slightly depressed (mild-moderate) Thigh (muscle): Mild depression on inner thigh (mild-moderate)(- pt voices using wheelchair often) Calf (muscle): Not well developed (mild-moderate)(- pt voices using wheelchair often) Nutritionally-Relevant Medications, Vitamins and Minerals: Warfarin, IV antibiotics, Lomotil,- TID, Gabapentin, Glucotrol XL, Heparin, Novolog-sliding scale TID, Creon 03522 TID, Imodium-TID, oral Flagyl, Thera-M (refused), Sandostatin, Vitamin K, oral Potassium, Senokot (not indicated past 4 days), Sodium Phosphates in 5% Dextrose Nutritionally-Relevant Biochemical Data: (10/31/2020) Glucose 121 H POC [phone] Creatinine 0.59 L Phosphorus 1.4 L Magnesium 1.7 L Albumin 1.9 L Allergies/Food Intolerance: Blair is allergic to penicillin; adhesives; bactericin [bacitracin]; cortisporin [atlvsmyx-dlepmhdcg-zj]; hydrocortisone [cortizone]; levofloxacin; lincocin; medihoney ca alginate 2"x2" [alginate - carboxymethylcellulose - silver]; monistat [tioconazole]; septra [sulfameth oxazole w-trimethoprim]; silvadene [silver sulfadiazine]; silver picrate; soap; sodium acetate; sulfa drugs; sulfamethoxazole w-trimethoprim; tpn electrolytes ii [lypholyte]; and xeroform [bismuth tribromoph-petrolatum]. Culturally Pent[employer]alism Needs: NA INTERVENTIONS Encouraged adequate calories and optimal protein in small, frequent meals and snacks Provided nutrition education on short gut/importance of vitamin supplementation Changed snacks- will send BID EMR reviewed MONITORING/EVALUATION Monitor ability to consume and tolerate adequate intake to approximate estimated needs with accomodation of preferences and tolerances until intake is sustained within desirable limits Monitor I&O, weight trends, nutrition-related labs and medications, clinical status, and planof care r/t need for nutrition intervention and provide as warranted Nutrition Therapy will reassess every 1-[address], LRD Alpha Pager #[phone] STANT SURVEYOR Care Planning - Glenis Valadez RN - 10/31/2020 12:54 AM ASSISTANT SURVEYOR Problem: DIARRHEA Goal: BOWEL ELIMINATION Description: Description: Formation and evacuation of stool. 1 = Severely compromised, 2 = Substantially compromised, 3 = Moderately compromised, 4 = Mildly compromised, 5 = Not compromised. Outcome: NOC Rating 3 Flowsheets (Taken 10/31/2020 0052) Patient specific goal for the day: Patient will have less diarrhea. Patient specific goal for the stay: Patient will not have diarrhea Achieve goal for stay: By discharge Patient Progress: Patient continues to have loose bowel movements. Patient remains on scheduled antidiarrheals (see MAR) are Planning - Elian Amanda RN - 10/30/2020 4:37 PM ASSISTANT SURVEYOR Problem: DIARRHEA Goal: BOWEL ELIMINATION Description: Description: Formation and evacuation of stool. 1 = Severely compromised, 2 = Substantially compromised, 3 = Moderately compromised, 4 = Mildly compromised, 5 = Not compromised. Outcome: NOC Rating 3 Flowsheets (Taken 10/30/2020 1731) Target Score: 5 Plan of care reviewed with: Patient Patient specific goal for the day: Patient will have less diarrhea. Patient specific goal for the stay: Patient will have less bowel movements and dirrhea. Achieve goal for stay: By discharge Patient Progress: Patient had multiple loose bowel movements today. increased Lomotil dose. are Planning - Glenis Valadez RN - 10/29/2020 11:42 PM ASSISTANT SURVEYOR Problem: DIARRHEA Goal: BOWEL ELIMINATION Description: Description: Formation and evacuation of stool. 1 = Severely compromised, 2 = Substantially compromised, 3 = Moderately compromised, 4 = Mildly compromised, 5 = Not compromised. Outcome: NOC Rating 4 Flowsheets (Taken 10/29/2020 2008) Plan of care reviewed with: Patient Patient specific goal for the day: Patient will have decreased diarrhea. Patient specific goal for the stay: Patient will have normal bowel movements. Achieve goal for stay: By discharge Patient Progress: Patient did not have loose, watery stool. Stool becoming more firm and occurring less often. are Planning - Glenis Valadez RN - 10/29/2020 1:11 AM ASSISTANT SURVEYOR Problem: RISK FOR FALLS Goal: FALL PREVENTION BEHAVIOR Description: DEFINITION: Personal or family respiratory care specialist actions to minimize risk factors that might precipitate falls in the personal environment. 1=Never demonstrated, 2=Rarely demonstrated, 3=Sometimes demonstrated, 4=Often demonstrated, 5=Consistently demonstrated. Outcome: NOC Rating 3 Flowsheets (Taken 10/29/2020 0110) Plan of care reviewed with: Patient Patient specific goal for the day: Pt will remain free from falls Patient specific goal for the stay: Patient will not fall Achieve goal for stay: By discharge Patient Progress: Patient did not fall. Patient did use call light appropriately for assistance. Bedalarm remains on for safety. hysical Therapy - Dylan Paul PT - 10/28/2020 3:22 PM CSTPT attempted to see patient at 15:15, but she was down for radiation per RN. 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 Blair continues to receive IV antibiotics. Patient did have surgery on 10/24- right index finger amputation and tolerated this well. Radiation continues. Did update Blair that [facility] is able to offer a bed when she is medically stable- anticipate next week. She continues to have ongoing diarrhea. She is frustrated that she will need toreceive antibiotics for at least 2 weeks. Her daughter Vanessa will be visiting this weekend. 10/27- Spoke with Vandana in admissions at [facility]- they are familiar with Blair and canaccept her at swing bed when medically stable. Did update Dr. Thomas and it is anticipated that Blair may be ready for discharge early next week. Did sent updated clinical notes with ID recommendations- Dr. Burgos signed off on 10/26. Left message for patient's daughter- Vanessa Stafford [phone]- that [facility] is able tooffer a bed for Blair when she is medically stable. Vanessa will provide transportation to and from radiation- this will be completed around 11/07/2020. Vanessa did return telegraphic typewriter installer's call and is in agreement for Blair to transition to [place] [facility]. Will keep her updated in regards to discharge date. She plans on visiting Blair this weekend. 10/26- Spoke with Dr. Burgos regarding IV antibiotic plan. Blair is not sure if her family will be available to provide transportation to [place] for daily IV antibiotics at [facility]fusion [facility]. She will bereceiving radiation until 11/07/2020. She also will need to see ID- Dr. Burgos in 2 weeks for followup appointment. Did contact her daughter Valery at [phone] to discuss discharge planning and tentative antibiotic plan- most likely will need daily IV antibiotics for six weeks. She stated she has been taking FMLA to bring her mother to appointments in [place]- otherwise she typically works until 4:30. 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 Did let her know that information could be sent to [facility] in [place] to check on cost. Otherwise patient could start her IV antibiotics in [place] at infusion center and transfer to [facility] to finish out the course. Did leave a message for Vandana at [facility] to give information on potential outpatient IV antibiotic plan. Valery asked about potential discharge- did let her know that it anticipated that it may be another 1-2 days. Did contact Tnoi at [facility]- information faxed for review and to get a potential cost estimate. Did receive a cost estimate for IV antibiotics- $565.00 per week (this would be for IV Vancomycin and Cefepime- Daptomycin would be around $8790-9138 per week). Did let Toni know that referral can be cancelled as patient and family is not able to pay this cost. Did update patient's daughter Valery about cost of IV antibiotics. She stated Blair would not be able to pay this cost. Did discuss options- patient has been at [facility] in past and may be agreeable for this. She has gotten weaker during her hospital stay- PT/OT are following. Did visit with Blair at bedside. Did discuss options- she will complete radiation on 11/07 and [facility] will be providing transportation here. Did explain swing bed in [place] as a short term option for IV antibiotics and therapy. Blair was in agreement to be profiled for Swing Bed Placement. Her daughter works during the day and she is feeling too weak to return back home. Her other main concern is diarrhea and feels like this is related to IV antibiotics- she is not pleased about this. IS PATIENT'S ADMISSION ASSOCIATED WITH TIA, ISCHEMIC, OR HEMORRHAGIC STROKE?: No PATIENT / SUBSTITUTE DECISION MAKER GOAL UPON TRANSITION: First Choice: PICC Line Swing Bed Transitional Care IV Antibiotics ANTICIPATED NEEDS UPON TRANSITION: PICC Line Swing Bed Transitional Care IV Antibiotics RESOURCE(S) PROVIDED: Placement and Transportation ANTICIPATED MODE OF TRANSPORT UPON TRANSITION: Family Car ANTICIPATED MODE OF TRANSPORT TO AND FROM FOLLOW UP APPOINTMENTS: Family Car VERIFIED CORRECT PHARMACY IS ENTERED FOR DISCHARGE: [facility] [place] [facility] will use hospital pharmacy- Medications to be ordered using 65 button transfer button upon discharge TRANSITION ROUNDING COMPLETED WITH THE FOLLOWING: Patient / family Laminating Machine Offbearer digital imaging specialist Discussed in person SIGNED: BON Marx, RN, PCCN-K, [facility] Hematology/Oncology Laminating Machine Offbearer Alpha Pager* [phone] ccupational Therapy - Lakesha Velez OTR/Jason - 10/28/2020 10:56 AM CSTOT continues to follow patient. OT attempted to visit patient this morning. Patient declined all ADLs and functional mobility, however, was initially agreeable to UE AROM exercises. Upon completing exercises on the R UE, patient adamantly refused further therapy despite encouragement given. Stated "Donot come back again today. See you on Saturday." Acute OT will follow up with patient as appropriate. LOIDA Heck/Jason Alpha Pager: [phone] are Planning - Kirill Buck RN - 10/28/2020 4:57 AM ASSISTANT SURVEYOR Problem: RISK FOR FALLS Goal: FALL PREVENTION BEHAVIOR Description: DEFINITION: Personal or family respiratory care specialist actions to minimize risk factors that might precipitate falls in the personal environment. 1=Never demonstrated, 2=Rarely demonstrated, 3=Sometimes demonstrated, 4=Often demonstrated, 5=Consistently demonstrated. Flowsheets (Taken 10/28/2020 0441) Target Score: 4 Plan of care reviewed with: Patient Patient specific goal for the day: Pt will remain free from falls Patient specific goal for the stay: Patient will remain free from falls Patient Progress: No fall this shift, pt alert and oriented x4, used call light appropriately, did not set off bed alarm. Will continue to monitor. are Planning - Yenni Choudhary RN - 10/27/2020 6:29 PM ASSISTANT SURVEYOR Problem: RISK FOR FALLS Goal: FALL PREVENTION BEHAVIOR Description: DEFINITION: Personal or family respiratory care specialist actions to minimize risk factors that might precipitate falls in the personal environment. 1=Never demonstrated, 2=Rarely demonstrated, 3=Sometimes demonstrated, 4=Often demonstrated, 5=Consistently demonstrated. Outcome: NOC Rating 5 Flowsheets (Taken 10/27/20201828) Plan of care reviewed with: Patient Patient specific goal for the day: Pt will remain free from falls Patient specific goal for the stay: Patient will remain free from falls Achieve goal for stay: By discharge Patient Progress: No fall this shift, pt alert and oriented x4, used call light appropriately, did not set off bed alarm. Will continue to monitor. Problem: RISK FOR INFECTION Goal: INFECTION SEVERITY Description: DEFINITION: Severity of signs and symptoms of infection. 1 = Severe, 2 = Substantial, 3 = Moderate, 4 = Mild, 5 = None. Outcome: NOC Rating 5 Flowsheets (Taken 10/27/20201829) Initial Score: 5 Target Score: 5 Plan of care reviewed with: Patient Patient specific goal for the day: Patient's wound will remain free from signs of local infection Patient specific goal for the stay: Patient will discharge home free of infection Achieve goal for stay: By discharge Patient Progress: MD came and changed dressing to right pointer finger at bedside. No signs of infection, healing well. Will change dressing daily and as needed, as ordered. Will continue to monitor. STANT SURVEYOR Occupational Therapy - Susu Moise OTR/L - 10/27/2020 4:35 PM CSTOT continues to follow patient. Attempted to see x2 this date. On first attempt, pt was busy with nursing staff, and on second attempt pt was visiting with the play writer/interior wall assembler. Will follow up tomorrow as able/appropriate. 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 Patient did have surgery yesterday- right index finger amputation and tolerated this well. Radiation continues. Spoke with Vandana in admissions at [facility]- they are familiar with Blair and can accept her at swing bed when medically stable. Did update Dr. Thomas and it is anticipated that Blair may be ready for discharge early next week. Did sent updated clinical notes with ID recommendations- Dr. Burgos signed off yesterday. Left message for patient's daughter- Vanessa Stafford [phone]- that [facility] is able tooffer a bed for Blair when she is medically stable. Vanessa will provide transportation to and from radiation- this will be completed around 11/07/2020. Vanessa did return telegraphic typewriter installer's call and is in agreement for Blair to transition to [facility]. Will keep her updated in regards to discharge date. She plans on visiting Blair this weekend. 10/26- Spoke with Dr. Burgos regarding IV antibiotic plan. Blair is not sure if her family will be available to provide transportation to [place] for daily IV antibiotics at [facility]. She will bereceiving radiation until 11/07/2020. She also will need to see ID- Dr. Burgos in 2 weeks for followup appointment. Did contact her daughter Valery at [phone] to discuss discharge planning and tentative antibiotic plan- most likely will need daily IV antibiotics for six weeks. She stated she has been taking FMLA to bring her mother to appointments in [place]- otherwise she typically works until 4:30. 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 Did let her know that information could be sent to [facility] in [place] to check on cost. Otherwise patient could start her IV antibiotics in [place] at infusion center and transfer to [facility] to finish out the course. Did leave a message for Vandana at [facility] to give information on potential outpatient IV antibiotic plan. Valery asked about potential discharge- did let her know that it anticipated that it may be another 1-2 days. Did contact Toni at [facility]- information faxed for review and to get a potential cost estimate. Did receive a cost estimate for IV antibiotics- $565.00 per week (this would be for IV Vancomycin and Cefepime- Daptomycin would be around $1938-4440 per week). Did let Toni know that referral can be cancelled as patient and family is not able to pay this cost. Did update patient's daughter Valery about cost of IV antibiotics. She stated Blair would not be able to pay this cost. Did discuss options- patient has been at [facility] in past and may be agreeable for this. She has gotten weaker during her hospital stay- PT/OT are following. Did visit with Blair at bedside. Did discuss options- she will complete radiation on 11/07 and [facility] will be providing transportation here. Did explain swing bed in [place] as a short term option for IV antibiotics and therapy. Blair was in agreement to be profiled for Swing Bed Placement. Her daughter works during the day and she is feeling too weak to return back home. Her other main concern is diarrhea and feels like this is related to IV antibiotics- she is not pleased about this. IS PATIENT'S ADMISSION ASSOCIATED WITH TIA, ISCHEMIC, OR HEMORRHAGIC STROKE?: No PATIENT / SUBSTITUTE DECISION MAKER GOAL UPON TRANSITION: First Choice: PICC Line Swing Bed Transitional Care IV Antibiotics ANTICIPATED NEEDS UPON TRANSITION: PICC Line Swing Bed Transitional Care IV Antibiotics RESOURCE(S) PROVIDED: Placement and Transportation ANTICIPATED MODE OF TRANSPORT UPON TRANSITION: Family Car ANTICIPATED MODE OF TRANSPORT TO AND FROM FOLLOW UP APPOINTMENTS: Family Car VERIFIED CORRECT PHARMACY IS ENTERED FOR DISCHARGE: No [facility] will use hospital pharmacy- Medications to be ordered using 65 button transfer button upon discharge TRANSITION ROUNDING COMPLETED WITH THE FOLLOWING: Patient / family Laminating Machine Offbearer digital imaging specialist Discussed in person SIGNED: BON Marx, RN, PCCN-K, [facility] Hematology/Oncology Laminating Machine Offbearer Alpha Pager* [phone] are Planning - Darline Macario RD - 10/27/2020 1:07 PM ASSISTANT SURVEYOR Problem: IMBALANCED NUTRITION: LESS THAN BODY REQUIREMENTS Goal: NUTRITIONAL STATUS: NUTRIENT INTAKE Description: DEFINITION: Nutrient intake to meet metabolic needs. 1=Not adequate, 2=Slightly adequate, 3=Moderately adequate, 4=Substantially adequate, 5=Totally adequate. Outcome: NOC Rating 3 Flowsheets (Taken 10/27/2020 1307) Target Score: 4 Plan of care reviewed with: Patient Patient specific goal for the day: Pt to consume small, frequent meals throughout the day Patient specific goal for the stay: Meet >75% of nutrition needs Achieve goal for stay: By discharge Patient Progress: Pt inquired about high potassium foods during today's visit. Reviewed sources suchas bananas, melons, potatoes, etc. Also provided pt with picture chart of high potassium foods. Pt has had 2-9 BM's/day over the past 2 days. Intake has been adequate over the past 2 days to meet 100% estimated kcal needs and 87% protein needs. Prior, intake had been sub optimal, meeting <50% of estimated needs for 4 days. hysical Therapy - Mariah Hedrick, PT - 10/27/2020 12:34 PM CST PHYSICAL THERAPY Acute Care Treatment Note RECOMMENDATIONS Assessment: Patient remains weak. Declined any EOB or OOB on this date, but with encouragement was willing to do LE exercise. Recommend ST [facility] which patient is now reluctantly agreeable to. 6-Clicks Basic Mobility Score: 18 Daily activity prescription: Assist patient to chair 3 times per day for 30 to 60 minutes or for allmeals. Use Ax1 Encourage patients to do personal cares when sitting up. Use bathroom or commode rather than bedpan. Anticipated D/C Service needs: Low intensity setting Anticipated Assistive Device needs: Manual WC SUBJECTIVE pt agreeable to therapy session for LE exercise Pain: At rest: Patient reports pain ( 0-10 scale) 4 With activity: Patient reports pain ( 0-10 scale) 4 OBJECTIVE Precautions: high risk hazardous medication, fall risk, pressure ulcer risk, contact precautions Observation: resting in bed upon arrival of PT. Bed alarm on Gait belt donned for all out of bed activity Vitals: 10/27/20 0900 BP: 145/98 Pulse: 80 Resp: 18 Temp: 97.1 F (36.2 C) SpO2: 97% Lab Results Component Value Date HEMOGLOBIN 11.0 (L) 10/27/2020 Functional Mobility: Not tested Therapeutic Exercises: Patient performed 10 reps of bilateral LE exercises: supine ankle pumps, SAQ, heel slides, hip abduction/adduction, SLR Other: Patient resting in bed at end of session. Bedside table, call light, and phone in reach. Bed alarm on Patient Education: Patient was educated on POC today through explanation and demonstration. They accepted teaching and verbalized understanding and demonstrated understanding. Goals: ongoing PLAN Continue plan of care. 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 PMH: T2DM, Diabetic ulcer of heel, HTN, Tobacco abuse, Iron deficiency, NSTEMI, Hx of colon cancer, s/p hemicolectomy with ileostomy, liver cancer s/p partial hepatic resection, COPD Recommendations: 1) Encourage intake of small, frequent meals t/o the day 2) Encourage Banatrol (banana flakes) 2-3 times per day mixed in applesauce or pudding to help thicken stools Continue with Imodium 3) RN/ROCKET TEST FIRE WORKER to assist pt with meal ordering as needed 4) Consider adding the following MV/M for wound healing: Thera-M Stress Tab w/ Zinc x 10 days - discussed w/ MD and tried to order, however pt has allergy contraindication 5) For nutritional management of diarrhea: Limit foods and beverages that contain sugar, lactose, fructose, high-fructose corn syrup, and sorbitol. Avoid beverages with caffeine. Eat a small meal or snack every 3 or 4 hours. Avoid spicy foods if they make symptoms worse. Malnutrition Summary Malnutrition Assessment Date: 10/27/20 Severe protein-calorie malnutrition Malnutrition Characteristics in the Context of Chronic Illness (greater than 3 months): Energy Intake: Less than or equal to 75% intake of estimated energy needs for greater than or equal to 1 month Severe Weight Loss: Greater than 20% in 1 year Subcutaneous Fat Loss: Moderate Muscle Loss: Moderate Interventions: Monitor oral intake/advance diet as tolerated;Supplement diet with ONS (oral nutrition supplements)/nutrient dense foods;Vitamin/mineral supplementation NUTRITION ASSESSMENT Pt endorses improving appetite, however states she continues to have loose stools. Pt denies taking banana flakes, to which RD strongly encouraged she try them in applesauce at least 1 time per day to assist with bulking of stools. Pt inquired about high potassium foods during today's visit. Reviewed sources such as bananas, melons, potatoes, etc. Also provided pt with picture chart of high potassiumfoods. Pt has had 2-9 BM's/day over the past 2 days. Intake has been adequate over the past 2 days to meet 100% estimated kcal needs and 87% protein needs. Prior, intake had been sub optimal, meeting <50% of estimated needs for 4 days. Anthropometrics: Height: 149.9 cm (4' 11") Admission Weight: Weight: 52.8 kg (116 lb 6.5 oz) as of 10/18/2020 per bed scale Most Recent Weight: Weight: 52 kg (114 lb 9.6 oz) (10/27/20 0900) per bed scale Lowest Weight Since Admission: 52.2 kg on 10/23 Weight Change: +2.2 kg (5 lb) since admission, +11 L fluid since admit BMI: Body mass index is 23.15 kg/m. IBW: 45 kg %IBW: 117% (based on admit weight) Usual Body Weight: Unknown at this time Unintentional Weight Loss:Pt has lost 50 lb (30%) in <1 year AND 14 lb (11%) in 1 month, both clinically significant.Pt weighted ~180-190 lb in 2019, and has been losing weight since [facility]. Estimated Needs: 1450-1600kcal/day(30kcal/kgUsing: Admission Weight) 65-80gm protein(1.3-1.5gm/kg Using:Admission Weight) Fluids per MD Estimated average intake over the last 2 days: 1417 kcal and 57 gm protein, which meets: 100 % of estimated kcal needs and 87 % of estimated protein needs. Intake Records: Intake Prior to Admit: Less than 75% of estimated energy requirements for greater than or equal to 1month Patient voices decreased intake d/t frequent diarrhea. She voices that she chronically has diarrhea,but that it has increased significantly since she started radiation 2 weeks ago. She voices normallyeating1-2mealsdaily, her main meal being in the evening with her family. Pt lives with her children.She voices that she has been trying to eat bananas and potatoes for extra potassium.She voices that her daughter bought her a bunch of different nutritional drinks but that she doesn't like them. Pt voices liking to drink water and 1 regular coke throughout the day. Lunch: sandwich (a bun with meat and cheese), or plain pasta with butter, salt and pepper Supper: meat (shrimp, roast) with mashed potatoes, or fettuccine magi pasta with shrimp Current Intake: Adequate over the past 2 days to meet 100% estimated kcal needs and 87% protein needs. Prior, intake had been sub optimal, meeting <50% of estimated needs for 4 days d/t poor appetite and loose stools as well as NPO status for procedure. Current Diet: Nutrition (From admission, onward) Start Ordered 10/24/201949 ADVANCE DIET TOLERATED ONCE 10/24/20194710/24/201949 Diet - Diabetic Now Question: Modified Diets Answer: Diabetic 10/24/20194710/19/20 170 Supplement [facility]; Boost Breeze BID BID Comments: Please add water to drink to mute flavor. Give supplement cold with medications twice a day. The supplement is an intervention for identified nutrition risk factors. * Do not give if patient is NPO (unless the orders specify NPO with supplement) or if medication should not be given with food. Question Answer Comment Location [facility] Dietary Supplement Boost Breeze 10/19/20 1232 10/19/20 1700 Supplement [facility]; Supplement per RD BID BID Comments: Banana flakes/Banatrol (located in pt's room): mix in pudding or applesauce BID to help thicken stools. Question Answer Comment Location [facility] Dietary Supplement Supplement per RD 10/19/20 1234 10/19/20 1200 SNACKS Once info Comments: PM: applesauce HS: vanilla pudding 10/19/20 1156 Physical Assessment: Edema: (per solar site assessment specialist at 1540 3/2) ? LUE Edema Trace ? RUE Edema 1 ? LLE Edema Trace ? RLE Edema Trace GI Assessment: ? Abdominal exam: Non-tender and Slightly firm with Active, Audible bowel sounds, per solar site assessment specialist at 2247 3/3. ? Stool Frequency: 2-9x/day over the last 2 days Wounds/Pressure Points: (per solar site assessment specialist at 2247 3/3) ? Ankle Right, Lateral ? Coccyx Blanchable Redness ? Heel Wound dressed ? Hip Dressed, nobs ? Left thigh (upper) Open with red/yellow wound bed Functional Status: PT Following OT Following Nutrition Focused Physical Exam: Completed by RD on 10/27/20 Below the Eye (fat): Slightly dark circles, somewhat hollow look (mild-moderate)(moderate) Oriental Orthodox (muscle): Hollow, scooping, depression (severe) Buccal (fat): Flat cheeks (moderate) Clavicle (muscle): Some protrusion of bone (mild-moderate)(moderate) Shoulder (muscle)/Deltoid muscle: Acromion process slightly protrudes (mild-moderate)(moderate) Triceps/Biceps (fat): Some depth to pinch, but not ample (mild-moderate)(mild) Hand/Interosseous (muscle): Slightly depressed (mild-moderate) Thigh (muscle): Mild depression on inner thigh (mild-moderate)(- pt voices using wheelchair often) Calf (muscle): Not well developed (mild-moderate)(- pt voices using wheelchair often) Nutritionally-Relevant Medications, Vitamins and Minerals: Warfarin, dulcolax, dilaudid, creon, imodium, thera-M, zofran, vitamin K, potassium chloride, compazine, senna, Nutritionally-Relevant Biochemical Data: (10/27/2020) Glucose 215 H Phosphorus 1.3 L Magnesium 1.4 L Albumin 1.9 L Allergies/Food Intolerance: Blair is allergic to penicillin; adhesives; bactericin [bacitracin]; cortisporin [cebzwfgw-pkckucuky-kc]; hydrocortisone [cortizone]; levofloxacin; lincocin; medihoney ca alginate 2"x2" [alginate - carboxymethylcellulose - silver]; monistat [tioconazole]; septra [sulfameth oxazole w-trimethoprim]; silvadene [silver sulfadiazine]; silver picrate; soap; sodium acetate; sulfa drugs; sulfamethoxazole w-trimethoprim; tpn electrolytes ii [lypholyte]; and xeroform [bismuth tribromoph-petrolatum]. Culturally Pentecostalism Needs: NA INTERVENTIONS Encouraged adequate calories and optimal protein in small, frequent meals and snacks Will send snacks and supplements BID Provided nutrition education on high potassium foods Conducted NFPE EMR reviewed MONITORING/EVALUATION Monitor ability to consume and tolerate adequate intake to approximate estimated needs with accomodation of preferences and tolerances until intake is sustained within desirable limits Monitor I&O, weight trends, nutrition-related labs and medications, clinical status, and planof care r/t need for nutrition intervention and provide as warranted Nutrition Therapy will reassess every 1-4 days Darline Macario MS, RDN, LRD Pager #[phone] are Planning - Kirill Buck RN - 10/27/2020 6:14 AM CSTPatient continues to have diarrhea. Up to the commode twice with loose stools. Continues with anti-di arrheal medication. Will continue with plan of care. Problem: DIARRHEA Goal: BOWEL ELIMINATION Description: Description: Formation and evacuation of stool. 1 = Severely compromised, 2 = Substantially compromised, 3 = Moderately compromised, 4 = Mildly compromised, 5 = Not compromised. Flowsheets (Taken 10/27/2020 0613) Target Score: 5 Plan of care reviewed with: Patient Patient specific goal for the day: pt will display decreasing diarrhea Patient specific goal for the stay: Patient will have less diarrhea. Achieve goal for stay: By discharge Patient Progress: Loose stool x2 hysical Therapy - Mariah Hedrick PT - 10/26/2020 3:40 PM CSTPT continues to follow patient. Attempted to see patient, but patient gone from room. Will follow-up as appropriate. Mariah Hedrick PT Alpha pager: [phone] ase Mgmt - Valery Shukla RN - 10/26/2020 12:32 PM CSTCASE MANAGEMENT / SOCIAL SERVICE TRANSITION PLAN - PROGRESS NOTE PLAN: Will Continue to Follow for Support and Progression Towards Final Transition Plan BARRIERS TO TRANSITION: Awaiting Final Antibiotic Recomendations Medical barriers:See below Monitor diarrhea IV Cefepime twice a day and IV Vancomycin twice a day Potassium chloride 20 mEq at 75 ml/hr Radiation treatments to pancreas PT/OT following Surgery on 10/24- right index finger amputation by Dr. Casas Octreotide injection every eight hours DOES ACCEPTING FACILITY REQUIRE COVID TESTING BEFORE DISCHARGE: N/A COMMENTS / PATIENT AND FAMILY RESPONSE TO PLAN: EMR reviewed and plan of care discussed with digital imaging specialist- Blair continues to receive IV antibiotics- awaiting final antibiotic recommendations. Patient did have surgery yesterday- right index finger amputation and tolerated this well. Radiation continues. Patient's goal remains to return homeupon discharge- she was not interested in home health services when telegraphic typewriter installer discussed with this. PT/OT continue to follow- patient is weaker and recommendation for TCU/Swing Bed Placement- patient is refusing this option. Patient did not have any questions for CM today. CM continues to follow support and discharge/transition planning needs. Addendum- Spoke with Dr. Burgos regarding IV antibiotic plan. Blair is not sure if her family will be available to provide transportation to [place] for daily IV antibiotics at [facility]. She will be receiving radiation until 11/02/2020. She also will need to see ID- Dr. Burgos in 2 weeks for follow up ap pointment. Did contact her daughter Valery at [phone] to discuss discharge planning and tentative antibiotic plan- most likely will need daily IV antibiotics for six weeks. She stated she has been taking FMLA to bring her mother to appointments in [place]- otherwise she typically works until 4:30. 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 Did let her know that information could be sent to [facility] in [place] to check on cost. Otherwise patient could start her IV antibiotics in [place] at infusion center and transfer to [facility] to finish out the course. Did leave a message for Vandana at [facility] to give information on potential outpatient IV antibiotic plan. Valery asked about potential discharge- did let her know that it anticipated that it may be another 1-2 days. She did not have any further questions for CM at this time. Did contact Toni at [facility]- information faxed for review and to get a potential cost estimate. Did receive a cost estimate for IV antibiotics- $565.00 per week (this would be for IV Vancomycin and Cefepime- Daptomycin would be around $6575-4402 per week). Did update patient's daughter Valery about cost of IV antibiotics. She stated Blair would not be able to pay this cost. Did discuss options- patient has been at [facility] in past and may be agreeable for this. She has gotten weaker during her hospital stay- PT/OT are following. Did visit with Blair at bedside. Did discuss options- she will complete radiation on 11/02 and [facility] will be providing transportation here. Did explain swing bed in [place] as a short term option for IV antibiotics and therapy. Blair was in agreement to be profiled for Swing Bed Placement. Her daughter works during the day and she is feeling too weak to return back home. Her other main concern is diarrhea and feels like this is related to IV antibiotics- she is not pleased about this. IS PATIENT'S ADMISSION ASSOCIATED WITH TIA, ISCHEMIC, OR HEMORRHAGIC STROKE?: No PATIENT / SUBSTITUTE DECISION MAKER GOAL UPON TRANSITION: First Choice: Home: Family/Friend Support Outpatient IV Antibiotics ANTICIPATED NEEDS UPON TRANSITION: Home Health: Bath Aid, Home Safety Evaluation, Nurse, Occupational Therapy and Physical Therapy Home: Family/Friend Support Outpatient IV Antibiotics Swing Bed Transitional Care RESOURCE(S) PROVIDED: Home Health ANTICIPATED MODE OF TRANSPORT UPON TRANSITION: Family Car ANTICIPATED MODE OF TRANSPORT TO AND FROM FOLLOW UP APPOINTMENTS: Family Car VERIFIED CORRECT PHARMACY IS ENTERED FOR DISCHARGE: Yes - Pharmacy: [id number] [address] [id number] TRANSITION ROUNDING COMPLETED WITH THE FOLLOWING: Patient / family Laminating Machine Offbearer digital imaging specialist Discussed in person SIGNED: BON Marx, RN, PCCN-K, [facility] Hematology/Oncology Laminating Machine Offbearer Alpha Pager* [phone] are Planning - Kal Krishna RN - 10/26/2020 2:33 AM CSTPt A/Ox4, VSS on room air, IVF infusing per MAR. Wounds to right inner ankle, right index finger andleft posterior thigh dressed, CDI. Plan to continue cefepime IV and Flagyl PO and await ID recommendations. Call light and belongings within reach, pt calls appropriately for assistance to BSC. are Planning - Alexandria Orosco RN - 10/25/2020 4:55 PM ASSISTANT SURVEYOR Problem: DIARRHEA Goal: BOWEL ELIMINATION Description: Description: Formation and evacuation of stool. 1 = Severely compromised, 2 = Substantially compromised, 3 = Moderately compromised, 4 = Mildly compromised, 5 = Not compromised. Flowsheets (Taken 10/25/2020 9451) Plan of care reviewed with: Patient Patient specific goal for the day: pt will display decreasing diarrhea Patient specific goal for the stay: Patient will have less diarrhea. Achieve goal for stay: By discharge Patient Progress: Pt had a small loose stool. Continues on scheduled anti- diarrheals. Will continue to monitor. are Planning - Zully Lopez RN - 10/25/2020 4:09 PM ASSISTANT SURVEYOR Problem: RISK FOR FALLS Goal: FALL PREVENTION BEHAVIOR Description: DEFINITION: Personal or family respiratory care specialist actions to minimize risk factors that might precipitate falls in the personal environment. 1=Never demonstrated, 2=Rarely demonstrated, 3=Sometimes demonstrated, 4=Often demonstrated, 5=Consistently demonstrated. Outcome: NOC Rating 5 Flowsheets (Taken 10/25/2020 8117) Plan of care reviewed with: Patient Patient specific goal for the day: Pt will not have a fall today Patient Progress: NO fall this shift. Pt alert and oriented, uses call light approprietely, bed alarm in place, will continue on fall precaution and monitor. are Planning - Darline Macario RD - 10/25/2020 3:43 PM ASSISTANT SURVEYOR Problem: IMBALANCED NUTRITION: LESS THAN BODY REQUIREMENTS Goal: NUTRITIONAL STATUS: NUTRIENT INTAKE Description: DEFINITION: Nutrient intake to meet metabolic needs. 1=Not adequate, 2=Slightly adequate, 3=Moderately adequate, 4=Substantially adequate, 5=Totally adequate. Outcome: NOC Rating 2 Flowsheets (Taken 10/25/2020 6322) Plan of care reviewed with: Patient Patient specific goal for the day: Pt to consume small, frequent meals throughout the day Patient specific goal for the stay: Meet >75% of nutrition needs Patient Progress: Sub optimal - meeting <50% of estimated needs over the past 4 days due to poor appetite with loose stools and NPO status for procedure. Pt does endorse improving appetite today, however. 75-100% of 2 meals consumed today. Endorses improvement in loose stools. 1-2 BM's documented over the past 2 days. ase Mgmt - Valery Shukla RN - 10/25/2020 2:59 PM CSTCASE MANAGEMENT / SOCIAL SERVICE TRANSITION PLAN - PROGRESS NOTE PLAN: Will Continue to Follow for Support and Progression Towards Final Transition Plan BARRIERS TO TRANSITION: Medical barriers:See below Monitor diarrhea IV Cefepime every eight hours and IV Vancomycin twice a day Potassium chloride 20 mEq at 75 ml/hr Hand Surgery Consult- evaluated patient on 10/20 Radiation treatments to pancreas PT/OT following Surgery on 10/24- right index finger amputation by Dr. Casas Octreotide injection every eight hours DOES ACCEPTING FACILITY REQUIRE COVID TESTING BEFORE DISCHARGE: N/A COMMENTS / PATIENT AND FAMILY RESPONSE TO PLAN: EMR reviewed and plan of care discussed with digital imaging specialist- Amy. Frazier continues to receive IV antibiotics. Patient did have surgery yesterday- right index finger amputation and tolerated this well. Radiation continues. Patient's goal remains to return home upon discharge- she was not interested in home health services when telegraphic typewriter installer discussed with this. PT/OT continue to follow- patient is weaker and recommendation for TCU/Swing Bed Placement- patient is refusing this option. Patient did not have any questions for CM today. CM continues to follow support and discharge/transition planning needs. Addendum- Did receive call from Dr. Burgos- ID- plan will potentially for 6 weeks of IV antibiotics- possibly once a day and patient could come to infusion center daily. Patient would like to come to [place] initially- since she is getting daily radiation. [facility] is about 30 minutes from patient's home in [place] and could be another option once she has completed radiation at [facility]. IS PATIENT'S ADMISSION ASSOCIATED WITH TIA, ISCHEMIC, OR HEMORRHAGIC STROKE?: No PATIENT / SUBSTITUTE DECISION MAKER GOAL UPON TRANSITION: First Choice: Home: Family/Friend Support Outpatient IV Antibiotics ANTICIPATED NEEDS UPON TRANSITION: Home Health: Bath Aid, Home Safety Evaluation, Nurse, Occupational Therapy and Physical Therapy Home: Family/Friend Support Outpatient IV Antibiotics Swing Bed Transitional Care RESOURCE(S) PROVIDED: Home Health ANTICIPATED MODE OF TRANSPORT UPON TRANSITION: Family Car ANTICIPATED MODE OF TRANSPORT TO AND FROM FOLLOW UP APPOINTMENTS: Family Car VERIFIED CORRECT PHARMACY IS ENTERED FOR DISCHARGE: Yes - Pharmacy: [id number] [place] [address] [id number] TRANSITION ROUNDING COMPLETED WITH THE FOLLOWING: Patient / family Laminating Machine Offbearer digital imaging specialist Discussed in person SIGNED: BON Marx, RN, PCCN-K, [facility] Hematology/Oncology Laminating Machine Offbearer Alpha Pager* [phone] hysical Therapy - Mariah Hedrick, PT - 10/25/2020 2:08 PM ASSISTANT SURVEYOR PHYSICAL THERAPY Acute Care Treatment Note RECOMMENDATIONS Assessment: Patient is weaker and needing more assistance with transfers. Recommend ST SNF, but patient adamantly refuses this and plans to return home -- she will need 24/7 assist and would recommendHT. Will update as appropriate. 6-Clicks Basic Mobility Score: 16 Daily activity prescription: Assist patient to chair 3 times per day for 30 to 60 minutes or for allmeals. Use Ax1 Encourage patients to do personal cares when sitting up. Use bathroom or commode rather than bedpan. Anticipated D/C Service needs: Low intensity setting, but patient adamantly refuses this and plans to return home -- she will need 24/ assist and would recommend HHPT. Anticipated Assistive Device needs: Manual WC SUBJECTIVE Patient agreeable to therapy session for assistance to get to commode and then to wheelchair so she can get to radiation. Patient requests she get dressed to go to radiation due to temperature is coldin radiation. Pain: At rest: Patient reports no pain. With activity: Patient reports pain ( 0-10 scale) 3 OBJECTIVE Precautions: high risk hazardous medication, fall risk, pressure ulcer risk Observation: resting in bed upon arrival of PT. Insists on getting dressed prior to going to radiation and needing to use the commode. Patient required minimal assistance to get pants threaded onto feet and upon standing after toileting needed assistance to pull pants up. Also needed minimal assistance to get her sweatshirt on. After toileting, patient able to do her own charu-cares, but needed assistance with pulling up her bottoms. Gait belt donned for all out of bed activity Vitals: 10/25/20 0700 BP: 94/48 Pulse: 70 Resp: 16 Temp: 97.3 F (36.3 C) SpO2: 92% Lab Results Component Value Date HEMOGLOBIN 11.0 (L) 10/25/2020 Functional Mobility: Bed mobility: modified independent - with bedrail and increased effort and time needed Supine to Sit: modified independent - head of bed elevated - with bedrail and increased effort and time needed Sit to Supine: not assessed Sit to/from Stand: minimal assistance -- performed x 3 (in order to transfer to commode and then towheelchair and then to get pants pulled up) - patient held onto bedrail to pull self to standing Stand Pivot: minimal assistance to transfer bed to commode and then to wheelchair Other: Patient sitting in wheelchair at end of session. Transport present to take patient to radiation. Patient Education: Patient was educated on POC today through explanation and demonstration. They accepted teaching and verbalized understanding and demonstrated understanding. Goals: ongoing PLAN Continue plan of care. Today's Treatment:: Gait Trainin minutes Therapeutic Exercise: 0 minutes Therapeutic Activity: 25 minutes TOTAL TIMED CODES: 25 minutes TREATMENT TOTAL TIME: 25 minutes Mariah Hedrick PT Alpha pager: [phone] ccupational Therapy - Jose Maria Susu Joseph, OTR/L - 10/25/2020 11:05 AM ASSISTANT SURVEYOR Occupational Therapy Acute Care Progress Note Impression/Recommendations Patient is adamantly refusing a TCU stay - would at least recommend HHOT upon returning home and family to assist as needed. Will continue to update. Patient demonstrating decreased endurance and strength, and demonstrates below baseline transfers, all of which decreases independence with ADL's and IADL's. Pt requiring SBA for seated ADL's and Silvina for squat pivot transfer. Participated in BUE exercises today. OT will continue to follow acutely. Objective Cognition: Alert and oriented x4. U/E: U/E exercise performed to promote joint integrity, reduce risk of contractures, facilitate enhancement of strength and endurance to further independence with ADLs/IADLs. Pt completed BUE AROM 10 reps x1 for all available distal motions/planes. Patient utilized a 2# weight to further improve strengthening. OT provided education on correct technique, speed and end range. Pt given rest break after eachexercise. Fatigue and weakness noted. Patient educated on completion of ROM at RUE index MCP joint throughout the day, to prevent any stiffness or contractures from developing - pt verbalized understanding and demonstrated completion (increased pain). ADLs: Feeding: Independent Grooming: Pt completed combing/styling hair while seated at EOB with SBA. Dressing: Pt required Silvina to manage gown due to IV lines/cords. Pt was able to tra slipper socks with SBA seated EOB using crossover technique. Transfers: Patient required Silvina to complete squat pivot transfer from commode chair to bed (increased difficulty this date and required several attempts to successfully complete). Pt utilized bed rail for increased support. At the end of the session, patient was left seated safely in bed. Call light, phone, and side table were all placed within patient reach. Informed to call a nurse if needing to get up or any additionalassistance. Pt verbalized understanding. Pain: Patient reports pain in her RUE index finger amputation - did not rate. Education Education/Training provided: Role of OT, plan of care, ADL's, transfers, UE exercise Learners: Patient Readiness: Acceptance Method of Training: Verbal education, demonstration Response: Verbalized/demonstrated understanding, will benefit from continued reinforcement Adaptive Equipment Recommendations Adaptive Equipment Recommended: TBA Adaptive Equipment Available: toilet safety frame, hand held shower, extended tub bench, airline stewardess, wheelchair and front-wheeled walker Plan to obtain adaptive equipment: To further assess. Goals Patient/Family Stated Goal for Session: none stated, agreeable to therapy session Short Term Goals: Patient will tolerate 15-30 minutes U/E exercise to further increase independence with ADL/IADLs (ongoing) Patient will complete grooming task safely standing at the sink withSBAusing adaptive equipment as needed. (ongoing) Patient will complete LB dressing safely withSBAusing adaptive equipment as needed. (ongoing) Patient will complete toileting safely withSBAusing adaptive equipment as needed. (ongoing) Patient will complete functional transfers safely withSBAusing adaptive equipment as needed. (ongoing) Patient will further participate with cognitive assessment to increase safety with functional tasks. Patient will have AE in place to increase safety with ADLs by discharge Patient continues to progress towards goals. Charges Treatment/Minutes: Today's Evaluation/Treatment Self care/home management: 16 minutes Therapeutic exercise: 14 minutes Total Treatment Time: 30 minutes Treatment Session 09/30 Weekly Assessment/Plan (Day 5): Continue POC. Therapist Alpha Pager Number [phone] STANT SURVEYOR Nutrition Team - Darline Macario, ROD - 10/25/2020 8:34 AM CST Nutrition Therapy Follow Up Hospital Day: 7 days Active Problems: Dehydration S/p I&D with amputation of right index finger PMH: T2DM, Diabetic ulcer of heel, HTN, Tobacco abuse, Iron deficiency, NSTEMI, Hx of colon cancer, s/p hemicolectomy with ileostomy, liver cancer s/p partial hepatic resection, COPD Recommendations: 1) Encourage intake of small, frequent meals t/o the day 2) Encourage Banatrol (banana flakes) 2-3 times per day mixed in applesauce or pudding to help thicken stools 3) RN/ROCKET TEST FIRE WORKER to assist pt with meal ordering as needed 4) Consider adding the following MV/M for wound healing: ? Add daily for micronutrient support: o Thera-M o Stress Tab with Zinc x 10 days o 10,000 units Vitamin A x 10 days o 500 mg Vitamin C BID x 10 days Malnutrition Summary Malnutrition Assessment Date: 10/19/20 Severe protein-calorie malnutrition Malnutrition Characteristics in the Context of Chronic Illness (greater than 3 months): Energy Intake: Less than or equal to 75% intake of estimated energy needs for greater than or equal to 1 month Severe Weight Loss: Greater than 20% in 1 year Subcutaneous Fat Loss: Moderate Muscle Loss: Moderate Interventions: Monitor oral intake/advance diet as tolerated;Supplement diet with ONS (oral nutrition supplements)/nutrient dense foods;Vitamin/mineral supplementation NUTRITION ASSESSMENT Pt reports improving appetite with improved loose stools. Pt has had 1-2 BMs over the past 2 days. Pt wishes to continue with snacks BID. Encouraged continued use of banana flakes to assist with stools. Consider adding MV/M supplementation for wound healing as mentioned above. Anthropometrics: Height: 149.9 cm (4' 11") Admission Weight: Weight: 52.8 kg (116 lb 6.5 oz) as of 10/18/2020 per bed scale Most Recent Weight: Weight: 52.2 kg (115 lb 1.3 oz) (10/23/20 0107) per bed scale Lowest Weight Since Admission: 52.2 kg Weight Change: -0.6 kg (1 lb) since admission BMI: Body mass index is 23.24 kg/m. IBW: 45 kg %IBW: 117% (based on admit weight) Usual Body Weight: Unknown at this time Unintentional Weight Loss:Pt has lost 50 lb (30%) in <1 year AND 14 lb (11%) in 1 month, both clinically significant.Pt weighted ~180-190 lb in 2019, and has been losing weight since [facility]. Estimated Needs: 1450-1600kcal/day(30kcal/kgUsing: Admission Weight) 65-80gm protein(1.3-1.5gm/kg Using:Admission Weight) Fluids per MD Estimated average intake over the last 4 days: inadequate 10/21:832 kcal, 29 gm protein 10/22:281 kcal, 10 gm protein 10/23: refused meals 10/24: NPO for procedure Intake Records: Intake Prior to Admit: Less than 75% of estimated energy requirements for greater than or equal to 1month Patient voices decreased intake d/t frequent diarrhea. She voices that she chronically has diarrhea,but that it has increased significantly since she started radiation 2 weeks ago. She voices normallyeating1-2mealsdaily, her main meal being in the evening with her family. Pt lives with her children.She voices that she has been trying to eat bananas and potatoes for extra potassium.She voices that her daughter bought her a bunch of different nutritional drinks but that she doesn't like them. Pt voices liking to drink water and 1 regular coke throughout the day. Lunch: sandwich (a bun with meat and cheese), or plain pasta with butter, salt and pepper Supper: meat (shrimp, roast) with mashed potatoes, or fettuccine magi pasta with shrimp Current Intake: Sub optimal - meeting <50% of estimated needs over the past 4 days due to poor appetite with loose stools and NPO status for procedure. Pt does endorse improving appetite today, however. 75-100% of 2 meals consumed today. Current Diet: Nutrition (From admission, onward) Start Ordered 10/24/201949 ADVANCE DIET TOLERATED ONCE 10/24/20194710/24/201949 Diet - Diabetic Now Question: Modified Diets Answer: Diabetic 10/24/20 19410/19/20 1700 Supplement [facility]; Boost Breeze BID BID Comments: Please add water to drink to mute flavor. Give supplement cold with medications twice a day. The supplement is an intervention for identified nutrition risk factors. * Do not give if patient is NPO (unless the orders specify NPO with supplement) or if medication should not be given with food. Question Answer Comment Location [facility] Dietary Supplement Boost Breeze 10/19/20 1232 10/19/20 1700 Supplement [facility]; Supplement per RD BID BID Comments: Banana flakes/Banatrol (located in pt's room): mix in pudding or applesauce BID to help thicken stools. Question Answer Comment Location [facility] Dietary Supplement Supplement per RD 10/19/20 1234 10/19/20 1200 SNACKS Once info Comments: PM: applesauce HS: vanilla pudding 10/19/20 1156 Physical Assessment: Edema: (per solar site assessment specialist at 0100 today) ? RUE Edema Trace ? LLE Edema Trace ? RLE Edema Trace GI Assessment: ? Abdominal exam: Non-tender and Slightly firm with Present, Active bowel sounds, per solar site assessment specialist at 0 today. ? Stool Frequency: 1-13x/day over the last 4 days WoundsPressure Points: (per solar site assessment specialist at 99 today) ? Coccyx Blanchable Redness ? Heel Open with red/yellow wound bed ? Thigh Left, Open with red/yellow wound bed Functional Status: PT Following OT Following Nutrition Focused Physical Exam: Completed by RD on 10/19/20 Below the Eye (fat): Slightly dark circles, somewhat hollow look (mild-moderate)(Moderate) Oriental Orthodox (muscle): Slight depression (mild-moderate)(Moderate) Buccal (fat): Flat cheeks (moderate) Clavicle (muscle): Some protrusion of bone (mild-moderate)(Moderate) Shoulder (muscle)/Deltoid muscle: Acromion process slightly protrudes (mild- moderate)(Moderate to severe) Triceps/Biceps (fat): Some depth to pinch, but not ample (mild-moderate)(Mild) Hand/Interosseous (muscle): Slightly depressed (mild-moderate) Thigh (muscle): Mild depression on inner thigh (mild-moderate)(Moderate - pt voices using wheelchairoften) Calf (muscle): Not well developed (mild-moderate)(Moderate - pt voices using wheelchair often) Nutritionally-Relevant Medications, Vitamins and Minerals: Warfarin, dulcolax, dilaudid, creon, imodium, zofran, vitamin K, potassium chloride, compazine, senna, Nutritionally-Relevant Biochemical Data: (10/25/2020) Glucose 230 H Sodium 134 L Phosphorus 1.9 L Magnesium 1.6 L Albumin 2 L Allergies/Food Intolerance: Blair is allergic to penicillin; adhesives; bactericin [bacitracin]; cortisporin [cquixlyh-olhvzcspe-rw]; hydrocortisone [cortizone]; levofloxacin; lincocin; medihoney ca alginate 2"x2" [alginate - carboxymethylcellulose - silver]; monistat [tioconazole]; septra [sulfameth oxazole w-trimethoprim]; silvadene [silver sulfadiazine]; silver picrate; soap; sodium acetate; sulfa drugs; sulfamethoxazole w-trimethoprim; tpn electrolytes ii [lypholyte]; and xeroform [bismuth tribromoph-petrolatum]. Culturally Pentecostalism Needs: NA INTERVENTIONS Encouraged adequate calories and optimal protein in small, frequent meals and snacks Will send snacks and supplements BID EMR reviewed MONITORING/EVALUATION Monitor ability to consume and tolerate adequate intake to approximate estimated needs with accomodation of preferences and tolerances until intake is sustained within desirable limits Monitor I&O, weight trends, nutrition-related labs and medications, clinical status, and planof care r/t need for nutrition intervention and provide as warranted Nutrition Therapy will reassess every 1-3 days Darline Macario MS, RDN, LRD Pager #[phone] are Planning - Anamaria Valdivia RN - 10/25/2020 3:46 AM ASSISTANT SURVEYOR Problem: RISK FOR FALLS Goal: FALL PREVENTION BEHAVIOR Description: DEFINITION: Personal or family respiratory care specialist actions to minimize risk factors that might precipitate falls in the personal environment. 1=Never demonstrated, 2=Rarely demonstrated, 3=Sometimes demonstrated, 4=Often demonstrated, 5=Consistently demonstrated. Outcome: NOC Rating 4 Flowsheets (Taken 10/25/2020 9955) Initial Score: 2 Target Score: 4 Plan of care reviewed with: Patient Patient specific goal for the day: pt will use call light appropriately Patient specific goal for the stay: no falls this stay Achieve goal for stay: By discharge Patient Progress: Bed alarm and fall precautions in place.Pt using call light at times. will continue to montior STANT SURVEYOR Care Planning - Shala Ritchie RN - 10/24/2020 11:32 PM ASSISTANT SURVEYOR Problem: RISK FOR FALLS Goal: FALL PREVENTION BEHAVIOR Description: DEFINITION: Personal or family respiratory care specialist actions to minimize risk factors that might precipitate falls in the personal environment. 1=Never demonstrated, 2=Rarely demonstrated, 3=Sometimes demonstrated, 4=Often demonstrated, 5=Consistently demonstrated. Outcome: NOC Rating 3 Flowsheets (Taken 10/24/2020 9750) Plan of care reviewed with: Patient Patient specific goal for the day: pt will use call light appropriately Patient Progress: patient using call light appropriately throughout shift. bed alarm and fall precautions in place. care rounding preformed. patient remains free from falls this shift. will monitor. Problem: DIARRHEA Goal: BOWEL ELIMINATION Description: Description: Formation and evacuation of stool. 1 = Severely compromised, 2 = Substantially compromised, 3 = Moderately compromised, 4 = Mildly compromised, 5 = Not compromised. Outcome: NOC Rating 3 Flowsheets (Taken 10/24/2020 2330) Plan of care reviewed with: Patient Patient specific goal for the day: pt will display decreasing diarrhea Patient Progress: patient on octreotide shots. diarrhea seems to be improving. see MAR. will monitor. STANT SURVEYOR Clinical Team - Shala Ritchie RN - 10/24/2020 8:03 PM CSTPT/INR post FFP not drawn due to patient being off the floor for the procedure. Lab just showed up to draw labs for post FFP. notified and requested to not draw at this time. Will continue with early AM PT/INR lab checks per MD order. STANT SURVEYOR PostOp Progress Note - Compa Medrano MD - 10/24/2020 6:59 PM CSTImmediate Post-Operative / Post Procedure Progress Note Interventional Radiologist: Compa Medrano MD Pre-Operative Diagnosis: Check PICC position Post-Operative Diagnosis: Same as pre-operative diagnosis. Anesthesia Type: n/a Interventional Procedure: venogram, PICC reposition Procedural Findings: Central venous occlusion, PICC reposition into right brachiocephalic vein Specimen: n/a Estimated Blood Loss: minimal Tubes/Drains/Needle: n/a Complications: none Postoperative Condition: stable Compa Medrano MD ostOp Progress Note - Enrike Lincoln MD - 10/24/2020 6:23 PM ASSISTANT SURVEYOR Immediate Post-Operative / Post Procedure Progress Note Att. Phys: Gertrude Thomas MD Pt. Type: Inpatient Operative Date: 10/24/2020 Surgeon: Surgeon(s) and Role: * Herber Casas MD - Primary Furnace Helper: Recreation Supervisor : Eden Covarrubias RN Scrub Person : Angelica Jorgensen CST Pre-Operative Diagnosis: Pre-Op Diagnosis Codes: * Osteomyelitis (HCC) [M86.9] Post-Operative Diagnosis: * Osteomyelitis (HCC) [M86.9] Anesthesia Type: MAC Operative Procedure: Procedure(s): IRRIGATION AND DERBRIDEMENT WITH AMPUTATION OF RIGHT INDEX FINGER - Wound Class: Dirty ID Type Source Tests Collected by Time 1 : right index finger swab Fluid Finger CULTURE BACTERIAL, OTHER, CULTURE BACTERIAL, ANAEROBE, CULTURE BACTERIAL, OTHER WITH GRAM STAIN Herber Casas MD 10/24/2020 1739 A : osteomyelitis right index finger Tissue Finger TISSUE EXAM Herber Casas MD 10/24/2020 1750 no implants used for procedure Fluids Given: See Anesthesia Record Urine Output: See Anesthesia Record Estimated Blood Loss: 10 mL Drains: none Findings: Scant purulent material encountered, sent for culture Complications: none Postoperative Condition: stable Ernike Lincoln MD Orthopedic Surgery, [id number] signed by Enrike Lincoln MD at 10/24/2020 6:24 PM CSTOccupational Therapy - Lakesha Velez OTR/L - 10/24/2020 4:06 PM CSTOT continues to follow patient. OT attempted to visit, however, declined due to increased pain in her hip and fatigue. Acute OT will follow up with patient as appropriate. ESTRELLA Heck Alpha Pager: [phone] ase Mgmt - Valery Shukla RN - 10/24/2020 4:03 PM CSTCASE MANAGEMENT / SOCIAL SERVICE TRANSITION PLAN - PROGRESS NOTE PLAN: Will Continue to Follow for Support and Progression Towards Final Transition Plan BARRIERS TO TRANSITION: Medical barriers:See below Monitor diarrhea IV Cefepime every eight hours and IV Vancomycin twice a day Potassium chloride 20 mEq at 75 ml/hr Hand Surgery Consult- evaluated patient on 10/20 Radiation treatments to pancreas PT/OT following Surgery today- plan for right index finger osteomyelitis IR consult for PICC line reposition DOES ACCEPTING FACILITY REQUIRE COVID TESTING BEFORE DISCHARGE: N/A COMMENTS / PATIENT AND FAMILY RESPONSE TO PLAN: EMR reviewed and plan of care discussed with digital imaging specialistShoaib Soto. Blair continues to receive IV antibiotics. Will have hand surgery completed today- right index finger amputation. Radiation continues. Patient's goal remains to return home upon discharge- she was not interested in home health services when telegraphic typewriter installer discussed with this. PT/OT continue to Follow. Patient did not have any questions for CM today. IS PATIENT'S ADMISSION ASSOCIATED WITH TIA, ISCHEMIC, OR HEMORRHAGIC STROKE?: No PATIENT / SUBSTITUTE DECISION MAKER GOAL UPON TRANSITION: First Choice: Home: Family/Friend Support ANTICIPATED NEEDS UPON TRANSITION: Home Health: Bath Aid, Home Safety Evaluation, Nurse, Occupational Therapy and Physical Therapy Home: Family/Friend Support RESOURCE(S) PROVIDED: Home Health ANTICIPATED MODE OF TRANSPORT UPON TRANSITION: Family Car ANTICIPATED MODE OF TRANSPORT TO AND FROM FOLLOW UP APPOINTMENTS: Family Car VERIFIED CORRECT PHARMACY IS ENTERED FOR DISCHARGE: Yes - Pharmacy: [id number] [place] [id number] TRANSITION ROUNDING COMPLETED WITH THE FOLLOWING: Patient / family Laminating Machine Offbearer digital imaging specialist Discussed in person SIGNED: BON Marx, RN, PCCN-K, [facility] Hematology/Oncology Laminating Machine Offbearer Alpha Pager* [phone] hysical Therapy - Mariah Hedrick PT - 10/24/2020 2:38 PM CSTPT continues to follow patient. Attempted to see patient, but patient declined due to having pain in her hip and is to go for surgery any time. Will follow-up as appropriate. Mariah Hedrick PT Alpha pager: [phone] linical Team - Brittany Rubin RN - 10/24/2020 1:53 PM CSTNotified MD Springer that chest xray has resulted. reviewed chest xray image and report. ReceivedTORB place order for IR reposition PICC. Will place order. linical Team - Brittany Rubin RN - 10/24/2020 12:57 PM CSTMD Springer notified of no blood return from PICC line placed yesterday. No blood returned after onedose of alteplase per med-surg protocol. Received TORB for chest xray to confirm PICC placement. Will place order. are Planning - Kirill Buck RN - 10/24/2020 2:54 AM CSTPatient comfortable this shift. Mag sulfate and sodium phosphate supplement given IV this shift. Dressing finn done on right index finger after previous dressing fell off. NPO at midnight for procedure in the AM. Will continue with plan of care. Problem: RISK FOR FALLS Goal: FALL PREVENTION BEHAVIOR Description: DEFINITION: Personal or family respiratory care specialist actions to minimize risk factors that might precipitate falls in the personal environment. 1=Never demonstrated, 2=Rarely demonstrated, 3=Sometimes demonstrated, 4=Often demonstrated, 5=Consistently demonstrated. Flowsheets (Taken 10/24/2020 0254) Target Score: 4 Plan of care reviewed with: Patient Patient specific goal for the day: Pt will appropriately use call light when needing assistance Patient specific goal for the stay: no falls this stay Achieve goal for stay: By discharge Patient Progress: Patient uses call light appropriately. Bed alarm and fall precautions remain in place. 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 POSTOPERATIVE DIAGNOSES: 1. 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 2. Mild flexor infectious tenosynovitis. PROCEDURES: 1. Irrigation and debridement of right index finger. 2. Amputation of right index finger at the level of the middle phalanx. FINDINGS: She had exposed distal phalanx with chronic ulceration of the fingertip. There was some mild associated cloudy fluid about the flexor sheath at the level of the middle phalanx. The bone itself was fairly soft just distal to the level of amputation. SURGEON: Herber Casas MD. DEMOGRAPHIC ANALYST: Enrike Lincoln MD, PGY-2 ANESTHESIA: MAC and local with a total of 7 mL of mix of 1% lidocaine with 0.5% Marcaine injected as a digital block. ESTIMATED BLOOD LOSS: Minimal. SPECIMEN: Swab culture of wound as well as fingertip to pathology. The swab was taken at the levelof the flexor sheath. COMPLICATIONS: None. TOURNIQUET TIME: 39 minutes at 200 mmHg with a forearm Tourni-Cot. DISPOSITION: Stable to recovery room. PROCEDURE IN DETAIL: After obtaining operative consent, the patient was taken to the operating roomwhere a multidisciplinary time-out was given identifying the correct patient and site. She was placed on the OR table in the supine position. The local anesthetic was injected. Her arm was then sterilely prepped and draped in the usual fashion. Esmarch exsanguination was done from thepalm proximally and the forearm tourniquet was inflated. Attention was turned to the fingertip. A fish-mouth type incision was made centered mostly just distal to the PIP joint. Dissection was carried down bluntly using loupe magnification. The skin was fairly friable and thin. Care was taken to avoid injuring the skin upon development of skin flaps. The neurovascular bundles were identified. The digital nerves were placed under slight traction and cut proximally to allow for retraction. The digital arteries appeared to be mildly calcific and werecauterized with bipolar. The flexor sheath was entered. The profundus tendon was divided. There was some mild cloudy fluid at this level. The sublimis tendons were then divided trying to maintain some of the insertion at the base of the middle phalanx. Attention was then turned to the dorsum of the finger where bipolar cautery was used for any crossing veins. The extensor tendon mechanism was then divided. Using a #15 blade, the periosteum of the middle phalanx was scored. I then used a bone cutter to amputate the finger above the level of the base of the middle phalanx. Swab culture was taken of the flexor sheath. The specimen was passed off for pathology. The exposed bone was smoothed over with a rasp. It appeared to be a good soft tissue envelope, which would cover the bone. The wound was copiously irrigated with a liter of saline and a half liter of Irrisept. Attention was turned to closure. A 3-0 Vicryl was used in the subcutaneous tissue and the skin was closed with 3-0 and 4-0 nylon. A sterile 4 x 4 and compressive 2-inch Conform dressing was placed and wrapped with Coban. The tourniquet was released and there was good capillary refill in the remaining fingers. The patient was then awakened and taken to the recovery room in stable condition. POSTOPERATIVE COURSE: She will be returned to her hospital bed. She will maintain her dressing for48 hours prior to changing. She should be discharged. She may follow up with us in the office by the end of this week to start some therapy. Herber Casas MD Receipt: [id number] Trans ID: [id number]/[facility] ASSISTANT SURVEYOR CST are Planning - Elian Amanda RN - 10/23/2020 6:42 PM ASSISTANT SURVEYOR Problem: DIARRHEA Goal: BOWEL ELIMINATION Description: Description: Formation and evacuation of stool. 1 = Severely compromised, 2 = Substantially compromised, 3 = Moderately compromised, 4 = Mildly compromised, 5 = Not compromised. Outcome: NOC Rating 4 Flowsheets (Taken 10/23/2020 1840) Target Score: 5 Plan of care reviewed with: Patient Patient specific goal for the day: Patient will have less diarrhea. Patient specific goal for the stay: Patient will have less diarrhea. Achieve goal for stay: By discharge Patient Progress: Patient's diarrhea was discussed with MD. New medications ordered which patient was agreeable to. Medications given as ordered. Patient reports less diarrhea today. linical Team - Briseida Church RN - 10/23/2020 12:09 PM CSTPeripherally Inserted Central Catheter Insertion Indication for PICC: IV ABX FOR RIGHT INDEX FINGER OSTEO, DIFFICULT ACCESS Consent obtained: Yes; Risks and benefits, goals, and alternatives reviewed with patient/auto service representative; all questions answered. Verbal consent obtained and patient education given prior to onset of procedure. The patient/authorized decision maker wishes to proceed with the procedure. Brand of Catheter: Bard Lot Number: [id number] Size: 4 [place] single Lumen PowerPICC Solo2, Power Injectable Site of Insertion: Left arm Vein accessed: basilic Diameter based vein measurement completed for desired catheter to vein ratio <45%. Catheter to vein ratio 15% at site of PICC insertion. Initial catheter length prior to trimmin cm Initial internal lumen volume prior to trimming catheter: Single: 0.73 mL Catheter length at insertion: 42 cm Length of catheter outside patient: 0 cm Tip Location: SVC/Right Atrial Junction Verified by: magnetic tracking/ECG tip confirmation system Amount of 1% Lidocaine administered intradermally: 1.5 ml Condition of cannulated arm: NO ABNORMALITIES Per sterile technique, arm prepped with chloraprep. Vein accessed using ultrasound guidance, 21 gauge needle and modified seldinger technique. Catheter threaded with ease. Stylet from catheter and sheath removed intact. Catheter was advanced to the point of maximal p wave peak; advanced further until p wave deflection. Catheter withdrawn and secured at point of maximal p wave height with no deflection. Good blood return noted. Flushed with 10 ml 0.9% Sodium Chloride to each lumen without difficulty. Catheter secured in place with securement device and CHG transparent dressing. Injection caps applied. Number of attempts: 1 Estimated Blood Loss: <5 ml Procedural Tolerance: FAIR Briseida Church RN 10/23/2020 12:09 PM ASSISTANT SURVEYOR are Planning - Kirill Buck RN - 10/23/2020 4:20 AM CSTPatient mostly comfortable this shift. States that arm was hurting because the IV infusion was running to quickly. Her arm appeared slightly red and was warm. I slowed the potassium chloride infusion from 75 mL/hr to 50 mL/hr and y-sited it with normal saline to reduce the irritation at the site. Patient had no further complaints. Will continue with plan of care. Problem: RISK FOR FALLS Goal: FALL PREVENTION BEHAVIOR Description: DEFINITION: Personal or family respiratory care specialist actions to minimize risk factors that might precipitate falls in the personal environment. 1=Never demonstrated, 2=Rarely demonstrated, 3=Sometimes demonstrated, 4=Often demonstrated, 5=Consistently demonstrated. Flowsheets (Taken 10/23/2020 0415) Target Score: 4 Plan of care reviewed with: Patient Patient specific goal for the day: Pt will appropriately use call light when needing assistance Patient specific goal for the stay: no falls this stay Achieve goal for stay: By discharge Patient Progress: Patient uses call light appropriately. Bed alarm and fall precautions remain in place. linical Team - Kirill Buck RN - 10/22/2020 9:59 PM CSTPatient refused oral medication this evening. Approached three times. Patient stated she would just t hrow it up because she had an upset stomach. Also refused medication for nausea. linical Team - Des Thompson RN - 10/22/2020 6:03 PM CSTUpon checking on the patient for their call light being on. Pt c/o different things and the nurse was attempting to address the issues at hand; the patient was dissatisfied with how fast things were getting done and became verbally abusive (yelling and cursing). After telling the patient we do not condone that type of behavior in the hospital the patient settled down and agreed she was in the wrong. are Planning - Lyssa Dougherty RN - 10/22/2020 10:22 AM ASSISTANT SURVEYOR Problem: RISK FOR FALLS Goal: FALL PREVENTION BEHAVIOR Description: DEFINITION: Personal or family respiratory care specialist actions to minimize risk factors that might precipitate falls in the personal environment. 1=Never demonstrated, 2=Rarely demonstrated, 3=Sometimes demonstrated, 4=Often demonstrated, 5=Consistently demonstrated. Outcome: NOC Rating 3 Flowsheets (Taken 10/22/2020 1022) Plan of care reviewed with: Patient Patient specific goal for the day: Pt will appropriately use call light when needing assistance Patient specific goal for the stay: no falls this stay Achieve goal for stay: By discharge are Planning - Valorie Bowman RN - 10/22/2020 2:57 AM ASSISTANT SURVEYOR Problem: RISK FOR FALLS Goal: FALL PREVENTION BEHAVIOR Description: DEFINITION: Personal or family respiratory care specialist actions to minimize risk factors that might precipitate falls in the personal environment. 1=Never demonstrated, 2=Rarely demonstrated, 3=Sometimes demonstrated, 4=Often demonstrated, 5=Consistently demonstrated. Outcome: NOC Rating 3 Flowsheets (Taken 10/22/2020 0256) Patient specific goal for the day: Pt will appropriately use call light when needing assistance Patient Progress: Patient uses call light appropriately. Bed alarm and fall precautions remain in place. STANT SURVEYOR Clinical Team - Kimi Qiu RN - 10/21/2020 8:18 PM CSTThis telegraphic typewriter installer asked patient x2 this shift if mepilex could be placed to coccyx due to nonblanchable redness. Patient educated on importance of mepilex to prevent any pressure injury. Patient continues torefuse mepilex. Will continue to educate on importance of pressure injury prevention. are Planning - Kimi Qiu RN - 10/21/2020 8:18 PM ASSISTANT SURVEYOR Problem: RISK FOR FALLS Goal: FALL PREVENTION BEHAVIOR Description: DEFINITION: Personal or family respiratory care specialist actions to minimize risk factors that might precipitate falls in the personal environment. 1=Never demonstrated, 2=Rarely demonstrated, 3=Sometimes demonstrated, 4=Often demonstrated, 5=Consistently demonstrated. Outcome: NOC Rating 4 Flowsheets (Taken 10/21/20202016) Plan of care reviewed with: Patient Patient specific goal for the day: patient will use call light appropriately. Patient specific goal for the stay: no falls this stay Achieve goal for stay: By discharge Patient Progress: patient uses call light with needs. bed alarm on for safety - patient has not set off. waiting for staff to assist with transfers. up with 1, gait belt and walker. No fall this shift.Will continue to monitor. STANT SURVEYOR Occupational Therapy - Susu Moise OTR/Jason - 10/21/2020 4:47 PM CSTOT continues to follow patient. Attempted to see this date, however upon arrival to pt's room, she was unavailable. Will follow up on Saturday as able/appropriate. ZEESHAN May/Jason Pager #[phone] utrition Team - Emili Hernandez, RD, LD - 10/21/2020 3:51 PM ASSISTANT SURVEYOR Nutrition Therapy Follow Up Hospital Day: 3 days Active Problems: Dehydration d/t diarrhea Newly diagnosed lung and pancreatic cancer, on radiation PMH: T2DM, Diabetic ulcer of heel, HTN, Tobacco abuse, Iron deficiency, NSTEMI, Hx of colon cancer, s/p hemicolectomy with ileostomy, liver cancer s/p partial hepatic resection, COPD Recommendations: 1) Encourage intake of small, frequent meals throughout the day 2) Encourage Banatrol (bananaflakes) 2-3x/day mixed in applesauce or pudding to help thicken stools. 3) RN/ROCKET TEST FIRE WORKER to assist with meal ordering as patient doesn't have her glasses (can't see the menu well) Malnutrition Summary Malnutrition Assessment Date: 10/19/20 Severe protein-calorie malnutrition Malnutrition Characteristics in the Context of Chronic Illness (greater than 3 months): Energy Intake: Less than or equal to 75% intake of estimated energy needs for greater than or equal to 1 month Severe Weight Loss: Greater than 20% in 1 year Subcutaneous Fat Loss: Moderate Muscle Loss: Moderate Interventions: Monitor oral intake/advance diet as tolerated;Supplement diet with ONS (oral nutrition supplements)/nutrient dense foods;Vitamin/mineral supplementation NUTRITION ASSESSMENT Attempted to visit with patient multiple times, she was sleeping this morning, then was at radiation. At afternoon attempts, patient was sleeping and not awakening to voice. Noted by RN that patient hasn't been eating much today, stating that her stomach doesn't feel good. Received imodium and zofran. Pt continues to have frequent BMs, noted 8-10 per day the last two days.So far 3 BMs documented today. Anthropometrics: Height: 149.9 cm (4' 11") Admission Weight: Weight: 52.8 kg (116 lb 6.5 oz) as of 10/18/2020 per bed scale Most Recent Weight: Weight: 55 kg (121 lb 4.1 oz) (10/21/20 0200) per bed scale Weight Change: +5 lb since admission, is on IV fluids BMI: Body mass index is 24.49 kg/m. IBW: 45 kg %IBW: 117% (based on admit weight) Usual Body Weight: Unknown at this time Unintentional Weight Loss: Pt has lost 50 lb (30%) in <1 year AND 14 lb (11%) in 1 month, both clinically significant. Pt weighted ~180-190 lb in 2019, and has been losing weight since per EMR. Estimated Needs: 3572-3999 kcal/day (30 kcal/kg Using: Admission Weight) 65-80 gm protein (1.3-1.5 gm/kg Using:Admission Weight) Fluids per MD Estimated average intake over the last 2 days: 1415 kcal and 50 gm protein, which meets: 97 % of estimated kcal needs and 76 % of estimated protein needs. Intake Records: Intake Prior to Admit: Less than 75% of estimated energy requirements for greater than or equal to 1month Patient voices decreased intake d/t frequent diarrhea. She voices that she chronically has diarrhea,but that it has increased significantly since she started radiation 2 weeks ago. She voices normallyeating 1-2 meals daily, her main meal being in the evening with her family. Pt lives with her children. She voices that she has been trying to eat bananas and potatoes for extra potassium. She voices that her daughter bought her a bunch of different nutritional drinks but that she doesn't like them. Pt voices liking to drink water and 1 regular coke throughout the day. Lunch: sandwich (a bun with meat and cheese), or plain pasta with butter, salt and pepper Supper: meat (shrimp, roast) with mashed potatoes, or fettuccine magi pasta with shrimp Current Intake: Adequate intake the last two days, but with frequency of BMs, pt likely isn't retaining much nutrition from food. Noted that patient hasn't been eating much today. Current Diet: Nutrition (From admission, onward) Start Ordered 10/19/20 1700 Supplement [facility]; Boost Breeze BID BID Comments: Please add water to drink to mute flavor. Give supplement cold with medications twice a day. The supplement is an intervention for identified nutrition risk factors. * Do not give if patient is NPO (unless the orders specify NPO with supplement) or if medication should not be given with food. Question Answer Comment Location [facility] Dietary Supplement Boost Breeze 10/19/20 1232 10/19/20 1700 Supplement [facility]; Supplement per RD BID BID Comments: Banana flakes/Banatrol (located in pt's room): mix in pudding or applesauce BID to help thicken stools. Question Answer Comment Location [facility] Dietary Supplement Supplement per RD 10/19/20 1234 10/19/20 1200 SNACKS Once info Comments: PM: applesauce HS: vanilla pudding 10/19/20 1156 10/18/20 1600 Diet - Diabetic Now Question: Modified Diets Answer: Diabetic 10/18/20 1556 Physical Assessment: Edema: (per solar site assessment specialist at 0838 today) ? LLE Edema Trace ? RLE Edema Trace GI Assessment: ? Abdominal exam: Non-tender and Soft with Active bowel sounds, per solar site assessment specialist at 0838 today. ? Stool Frequency: 8-10x/day over the last 2 days Wounds/Pressure Points: (per solar site assessment specialist at 0838 today) ? Coccyx Non-Blanchable Redness ? Heel Blanchable Redness, Open with yellow wound bed Functional Status: PT Following OT Following Nutrition Focused Physical Exam: Completed by RD on 10/19/2020 Below the Eye (fat): Slightly dark circles, somewhat hollow look (mild-moderate)(Moderate) Oriental Orthodox (muscle): Slight depression (mild-moderate)(Moderate) Buccal (fat): Flat cheeks (moderate) Clavicle (muscle): Some protrusion of bone (mild-moderate)(Moderate) Shoulder (muscle)/Deltoid muscle: Acromion process slightly protrudes (mild- moderate)(Moderate to severe) Triceps/Biceps (fat): Some depth to pinch, but not ample (mild-moderate)(Mild) Hand/Interosseous (muscle): Slightly depressed (mild-moderate) Thigh (muscle): Mild depression on inner thigh (mild-moderate)(Moderate - pt voices using wheelchairoften) Calf (muscle): Not well developed (mild-moderate)(Moderate - pt voices using wheelchair often) Nutritionally-Relevant Medications, Vitamins and Minerals: Antibiotics, Lomotil, Glucotrol XL, CS Novolog, Creon, Imodium, Thera-M, Zofran, potassium chloride Nutritionally-Relevant Biochemical Data: (10/21/2020) Glucose 204 H Potassium 3.3 L Creatinine 0.58 L Magnesium 1.7 L Albumin 2.2 L Allergies/Food Intolerance: Blair is allergic to penicillin; adhesives; bactericin [bacitracin]; cortisporin [ezkckxfw-jefkhppeq-hv]; hydrocortisone [cortizone]; levofloxacin; lincocin; medihoney ca alginate 2"x2" [alginate - carboxymethylcellulose - silver]; monistat [tioconazole]; septra [sulfameth oxazole w-trimethoprim]; silvadene [silver sulfadiazine]; silver picrate; soap; sodium acetate; sulfa drugs; sulfamethoxazole w-trimethoprim; tpn electrolytes ii [lypholyte]; and xeroform [bismuth tribromoph-petrolatum]. Culturally Pentecostalism Needs: no INTERVENTIONS Will send snacks and supplements BID, +banana flakes EMR reviewed MONITORING/EVALUATION Monitor ability to consume and tolerate adequate intake to approximate estimated needs with accomodation of preferences and tolerances until intake is sustained within desirable limits Monitor I&O, weight trends, nutrition-related labs and medications, clinical status, and planof care r/t need for nutrition intervention and provide as warranted Nutrition Therapy will reassess every 1-[address], LRD Alpha Pager # [phone] ase Mgmt - Valery Shukla RN - 10/21/2020 2:13 PM CSTCASE MANAGEMENT / SOCIAL SERVICE TRANSITION PLAN - PROGRESS NOTE PLAN: Will Continue to Follow for Support and Progression Towards Final Transition Plan BARRIERS TO TRANSITION: Medical barriers:See below Monitor diarrhea IV Rocephin daily Potassium chloride 20 mEq at 75 ml/hr Hand Surgery Consult- evaluated patient on 10/20 Radiation treatments to pancreas IV magnesium replacement- magnesium- 1.7 PT/OT following DOES ACCEPTING FACILITY REQUIRE COVID TESTING BEFORE DISCHARGE: N/A COMMENTS / PATIENT AND FAMILY RESPONSE TO PLAN: EMR reviewed and plan of care discussed with digital imaging specialistShoaib GarciaLo Frazier continues to receive IV antibiotics- has had loose stools and not feeling as well today. Radiation continues. Patient's goal remains to return home upon discharge- she was not interested in home health services when telegraphic typewriter installer discussed with this. PT/OT continue to Follow. Patient did not have any questions for CM today. IS PATIENT'S ADMISSION ASSOCIATED WITH TIA, ISCHEMIC, OR HEMORRHAGIC STROKE?: No PATIENT / SUBSTITUTE DECISION MAKER GOAL UPON TRANSITION: First Choice: Home: Family/Friend Support ANTICIPATED NEEDS UPON TRANSITION: Home Health: Bath Aid, Home Safety Evaluation, Nurse, Occupational Therapy and Physical Therapy Home: Family/Friend Support RESOURCE(S) PROVIDED: Home Health ANTICIPATED MODE OF TRANSPORT UPON TRANSITION: Family Car ANTICIPATED MODE OF TRANSPORT TO AND FROM FOLLOW UP APPOINTMENTS: Family Car VERIFIED CORRECT PHARMACY IS ENTERED FOR DISCHARGE: Yes - Pharmacy: [id number] [address] [id number] TRANSITION ROUNDING COMPLETED WITH THE FOLLOWING: Patient / family Laminating Machine Offbearer digital imaging specialist Discussed in person SIGNED: BON Marx, RN, PCCN-K, [facility] Hematology/Oncology Laminating Machine Offbearer Alpha Pager* [phone] hysical Therapy - Mariah Hedrick PT - 10/21/2020 2:10 PM CSTPT continues to follow patient. Attempted to see patient, but patient declined secondary to not feeling well. Will follow-up as appropriate. Mariah Hedrick PT Alpha pager: [phone] are Planning - Camilla Lares RN - 10/21/2020 1:00 PM ASSISTANT SURVEYOR Problem: RISK FOR FALLS Goal: FALL PREVENTION BEHAVIOR Description: DEFINITION: Personal or family respiratory care specialist actions to minimize risk factors that might precipitate falls in the personal environment. 1=Never demonstrated, 2=Rarely demonstrated, 3=Sometimes demonstrated, 4=Often demonstrated, 5=Consistently demonstrated. Outcome: NOC Rating 5 Flowsheets (Taken 10/21/2020 1259) Plan of care reviewed with: Patient Patient specific goal for the day: patient will use call light appropriately. Patient specific goal for the stay: no falls this stay Achieve goal for stay: By discharge Patient Progress: patient uses call light with needs. bed alarm on for safety - patient has not set off. waiting for staff to assist with transfers. STANT SURVEYOR Clinical Team - Camilla Lares RN - 10/21/2020 12:55 PM CSTPatient not up for eating much thus far. States her stomach doesn't feel good. Loose stool x1. Imodium given. zofran given x1. Patient had mild relief after this. Encouraging oral intake as able. Electrolytes replaced IV. linical Team - Marci Gaspar RN - 10/21/2020 5:49 AM CSTPt rested in bed with eyes closed for most of shift. A/o x4. No c/o pain. No s/s of discomfort or distress; labored breathing. Sodium Phosphate infusing. Heel and Index finger dressing c/d/i. Pt used call light remote appropriately to call for assist. Safety precautions in place; bed alarm activated. Pt up 1/Pivot to bedide commode. Will continue to monitor. linical Team - Camilla Lares RN - 10/20/2020 6:10 PM CSTPatient has had a fair day. Feels like the stools have improved since admission but still has periodic episodes of frequency. Lomotil being given per orders. are Planning - Camilla Lares RN - 10/20/2020 6:09 PM ASSISTANT SURVEYOR Problem: DIARRHEA Goal: BOWEL ELIMINATION Description: Description: Formation and evacuation of stool. 1 = Severely compromised, 2 = Substantially compromised, 3 = Moderately compromised, 4 = Mildly compromised, 5 = Not compromised. Outcome: NOC Rating 3 Flowsheets (Taken 10/20/2020 1806) Plan of care reviewed with: Patient Patient specific goal for the day: patient will choose foods from dieticians recommendations Patient specific goal for the stay: controlled loose stools of less than 4/day Achieve goal for stay: By discharge Patient Progress: patient has food guide at bedside. choosing appropriate foods. using banana flakeswith applesauce as a supplement. ase Mgmt - Valery Shukla RN - 10/20/2020 4:18 PM CSTCASE MANAGEMENT / SOCIAL SERVICE TRANSITION PLAN - PROGRESS NOTE PLAN: Will Continue to Follow for Support and Progression Towards Final Transition Plan BARRIERS TO TRANSITION: Medical barriers:See below Monitor diarrhea IV Rocephin daily Potassium chloride 20 mEq at 75 ml/hr Hand Surgery Consult Radiation treatments to pancreas DOES ACCEPTING FACILITY REQUIRE COVID TESTING BEFORE DISCHARGE: N/A COMMENTS / PATIENT AND FAMILY RESPONSE TO PLAN: EMR reviewed and plan of care discussed with digital imaging specialistSohaib GarciaLo Frazier continues to receive IV antibiotics and awaiting Hand Surgery Consult. Radiation continues. Patient's goal remains to return homeupon discharge- she was not interested in home health services when telegraphic typewriter installer discussed with this. PT/OT continue to Follow. Patient did not have any questions for CM today. IS PATIENT'S ADMISSION ASSOCIATED WITH TIA, ISCHEMIC, OR HEMORRHAGIC STROKE?: No PATIENT / SUBSTITUTE DECISION MAKER GOAL UPON TRANSITION: First Choice: Home: Family/Friend Support ANTICIPATED NEEDS UPON TRANSITION: Home Health: Bath Aid, Home Safety Evaluation, Nurse, Occupational Therapy and Physical Therapy Home: Family/Friend Support RESOURCE(S) PROVIDED: Home Health ANTICIPATED MODE OF TRANSPORT UPON TRANSITION: Family Car ANTICIPATED MODE OF TRANSPORT TO AND FROM FOLLOW UP APPOINTMENTS: Family Car VERIFIED CORRECT PHARMACY IS ENTERED FOR DISCHARGE: Yes - Pharmacy: [id number] [place] [address] TRANSITION ROUNDING COMPLETED WITH THE FOLLOWING: Patient / family Laminating Machine Offbearer digital imaging specialist Discussed in person SIGNED: BON Marx, RN, PCCN-K, [facility] Hematology/Oncology Laminating Machine Offbearer Alpha Pager* [phone] STANT SURVEYOR Occupational Therapy - Susu Moise OTR/L - 10/20/2020 1:11 PM ASSISTANT SURVEYOR Occupational Therapy Acute Care Progress Note Impression/Recommendations Recommend patient will be able to return home with family and HHOT, upon discharge with medical stability. Will continue to update. Patient demonstrating decreased endurance and strength, and demonstrates below baseline transfers, all of which decreases independence with ADL's and IADL's. Pt requiringSBA for seated ADL's and CGA-Silvina for squat pivot transfer. Participated in BUE exercises today. OT will continue to follow acutely. Objective Cognition: Alert and oriented x4. U/E: U/E exercise performed to promote joint integrity, reduce risk of contractures, facilitate enhancement of strength and endurance to further independence with ADLs/IADLs. Pt completed BUE AROM 10 reps x1 for all available motions/planes. Patient utilized a 3# weight for distal joints and no weight forbilateral shoulder ROM. OT provided education on correct technique, speed and end range. Pt given rest break after each exercise. Fatigue and weakness noted. ADLs: Feeding: Independent Grooming: Pt able to complete hand hygiene while seated in bed with use of a hygiene towelette. Toileting: Pt able to complete charu cares while seated on commode with SBA. Transfers: Bed: SBA supine >< sitting EOB. CGA-Silvina to complete sit >< stand Commode: CGA-Silvina to complete sit >< stand. Comments: Pt completed squat pivot transfer from bed to commode and then from commode to bed (this is how she transfers at baseline). At the end of the session, patient was left seated safely in bed. Call light, phone, and side table were all placed within patient reach. Informed to call a nurse if needing to get up or any additionalassistance. Pt verbalized understanding. Pain: No pain observed or reported during therapy session Education Education/Training provided: Role of OT, plan of care, ADL's, transfers, UE exercise Learners: Patient Readiness: Acceptance Method of Training: Verbal education, demonstration Response: Verbalized/demonstrated understanding, will benefit from continued reinforcement Adaptive Equipment Recommendations Adaptive Equipment Recommended: TBA Adaptive Equipment Available: toilet safety frame, hand held shower, extended tub bench, airline stewardess, wheelchair and front-wheeled walker Plan to obtain adaptive equipment: To further assess. Goals Patient/Family Stated Goal for Session: none stated, agreeable to therapy session Short Term Goals: Patient will tolerate 15-30 minutes U/E exercise to further increase independence with ADL/IADLs Patient will complete grooming task safely standing at the sink withSBAusing adaptive equipment as needed. Patient will complete LB dressing safely withSBAusing adaptive equipment as needed. Patient will complete toileting safely withSBAusing adaptive equipment as needed. Patient will complete functional transfers safely withSBAusing adaptive equipment as needed. Patient will further participate with cognitive assessment to increase safety with functional tasks. Patient will have AE in place to increase safety with ADLs by discharge Patient continues to progress towards goals. Charges Treatment/Minutes: Today's Evaluation/Treatment Self care/home management: 14 minutes Therapeutic exercise: 17 minutes Total Treatment Time: 31 minutes Treatment Session 08/30 Weekly Assessment/Plan (): Continue POC. Therapist Alpha Pager Number [phone] STANT SURVEYOR Physical Therapy - Jose Felder SPT - 10/20/2020 12:00 PM CST PHYSICAL THERAPY Acute Care Treatment Note RECOMMENDATIONS Assessment: Patient presents with decreased strength and functional mobility compared to baseline. Patient will benefit from continued PT during her hospital stay. Plan to see patient 5x/wk. Based oncurrent function, anticipate patient will need ongoing HHPT upon medical stability. Will update as appropriate. 6-Clicks Basic Mobility Score: 17 Daily activity prescription: Assist patient to chair 3 times per day for 30 to 60 minutes or for allmeals. Use Ax1 Use bathroom or commode rather than bedpan. Transfer to w/c and from w/c to toilet/shower with Ax1 Anticipated D/C Service needs: HHPT Anticipated Assistive Device needs: wheelchair cushion SUBJECTIVE Patient agreeable to therapy session. Granddaughter present Pain: At rest: Patient reports no pain. OBJECTIVE Precautions: high risk hazardous medication, fall risk, pressure ulcer risk Observation: sitting EOB upon arrival Vitals: 10/20/20 0831 BP: 95/49 Pulse: 90 Resp: 16 Temp: 97.2 F (36.2 C) SpO2: 93% Lab Results Component Value Date HEMOGLOBIN 11.9 10/20/2020 Functional Mobility: Bed mobility: not assessed Supine to Sit: not assessed Sit to Supine: not assessed Sit to/from Stand: minimal assistance Stand Pivot: minimal assistance Comments: SBA squat pivot bed to w/c, required Silvina to squat pivot transfer from w/c to bed. Self propelled manual w/c with UE 100' in hallway. Reported w/c as her only mode of functional mobility and she does not have a cushion for her wheelchair as she currently uses a pillow, she does have a wound on her left posterior thigh. Would benefit from a wheelchair cushion to assist with pressure relief to promote wound healing and prevent furtherbreakdown. Therapeutic Exercises: Patient performed 10 reps of bilateral LE exercises: seated marching, resisted hip abduction/adduction, resisted knee flexion/extension, ankle pumps. Given HEP printouts of seated and supine ex. Other: Patient sitting EOB at end of session. Bedside table, call light, and phone in reach. nsg present. Patient Education: Patient and Family was educated on POC and HEP today through explanation, demonstration and handout. They accepted teaching and verbalized understanding. Interdisciplinary Communication: Communicated need for wheelchair cushion with MD, orders for 18 inch cushion placed, healthcare accessories to deliver. Goals: Ongoing PLAN Continue plan of care. Patient will continue to benefit from skilled therapy to increase functional strength to increase independence with transfers. Treatment Today: Gait Trainin minutes Therapeutic Exercise: 10 minutes Therapeutic Activity: 15 minutes TOTAL TIMED CODES: 25 minutes TREATMENT TOTAL TIME: 25 minutes EDNA Stephen STANT SURVEYOR Associated attestation - Mariah Hedrick PT - 10/20/2020 1:11 PM CSTThis practitioner was present and in the room for the entire session, guiding the student in servicedelivery. Documentation was edited and reviewed by this practitioner prior to signature application. Mariah Hedrick PT Alpha pager: [phone] Care Planning - Yuly Burgos RN - 10/20/2020 1:59 AM ASSISTANT SURVEYOR Problem: DIARRHEA Goal: BOWEL ELIMINATION Description: Description: Formation and evacuation of stool. 1 = Severely compromised, 2 = Substantially compromised, 3 = Moderately compromised, 4 = Mildly compromised, 5 = Not compromised. Outcome: NOC Rating 3 Flowsheets (Taken 10/20/2020 0158) Plan of care reviewed with: Patient Patient specific goal for the day: Patient will notify nursing staff after each loose stool Patient Progress: Patient has notified staff of each bowel movement. Patient was given PRN lomotil. Patient will continue to be monitored. are Planning - Camilla Lares RN - 10/19/2020 6:04 PM ASSISTANT SURVEYOR Problem: DIARRHEA Goal: BOWEL ELIMINATION Description: Description: Formation and evacuation of stool. 1 = Severely compromised, 2 = Substantially compromised, 3 = Moderately compromised, 4 = Mildly compromised, 5 = Not compromised. Outcome: NOC Rating 3 Flowsheets (Taken 10/19/2020 1802) Plan of care reviewed with: Patient Patient specific goal for the day: patient will notify staff after each loose stool Patient specific goal for the stay: controlled loose stools of less than 4/day Achieve goal for stay: By discharge Patient Progress: patient has notified staff of each bowel movement. initiated lomotil and given x3 thus far. Provider increased dose of this for better management. modified diet per tire room supervisor recommendations. ase Mgmt - Valery Shukla RN - 10/19/2020 1:33 PM CSTCASE MANAGEMENT / SOCIAL SERVICE TRANSITION PLAN - INITIAL ASSESSMENT TRANSITION PLAN: Will Continue to Follow for Support and Progression Towards Final Transition Plan BARRIERS TO TRANSITION: Awaiting Collateral Information Diagnostic Tests Pending Medical barriers:See below IV Rocephin daily Monitor labs IV Potassium phosphate replacement- potassium- 3.0 IVF at 75 ml/hr- Potassium chloride 20 mEq Hand surgery consult for open wound to right finger PT/OT evaluation COMMENTS / PATIENT AND FAMILY RESPONSE TO PLAN: EMR reviewed and plan of care discussed with digital imaging specialistShoaib Garcia. Patient admitted on 10/21 for dehydration, finger infection, fatigue, weakness, and need for electrolyte replacement. Patient has non-smallcell cancer of right lung and pancreatic cancer. Patient has been receiving Radiation Therapy. Visited with patient at bedside. Explained role of Case Management and Discharge Planning. Patientresides in her own home in [place], [place] ([facility]) and her two adult children live with her. Patienthad not been receiving any community services- did discuss possible home health services- patient feels that she does not need this at this time. Patient does require some assistance at home- uses a manual wheelchair/squat pivot transfers per PT. Patient does have a ramp and bed/bathroom is located on main level. Her daughter is able to provide transportation to and from appointments. Patient reported she was independent with dressing, bathing, medication management, finances, and transfers at home. Patient's goal is to return back home and hoping that she will be able to discharge soon. Discussedthat she has a Hand Surgery Consult to assess open wound to her right second finger (finger nail is gone) and monitor diarrhea. Patient did not have any other questions for CM at this time. ADMISSION DX: Dehydration PATIENT STATUS: Inpatient RELEASE OF INFORMATION: Yes -- verbal for: Discharge Planning SOURCES OF INFORMATION (See demographics for contact information): digital imaging specialist Medical Doctor Medical Record Nurse: Bedside Patient CURRENT LIVING SITUATION / LEVEL OF ASSISTANCE: Lives with two adult children in own home in [place], [place] Independent Bath / bedroom on main floor Manual wheelchair COMMUNITY SERVICES: None HEALTHCARE DIRECTIVE: Declined POWER OF CREDIT ADMINISTRATOR: None FINANCIAL CONCERNS: No Concerns Medicare Part A & B Supplemental Insurance- BCBS [place] PRIMARY CARE PHYSICIAN: Yes Teodoro Araujo PA-C : No IS PATIENT'S ADMISSION ASSOCIATED WITH TIA, ISCHEMIC, OR HEMORRHAGIC STROKE?: No LANGUAGE / COMMUNICATION BARRIERS: No PATIENT / SUBSTITUTE DECISION MAKER GOAL UPON TRANSITION: First Choice: Home: Family/Friend Support ANTICIPATED NEEDS, TRANSITION CHOICES OFFERED: Home Health: Bath Aid, Home Safety Evaluation, Nurse, Occupational Therapy and Physical Therapy Home: Family/Friend Support RESOURCE(S) PROVIDED: nothing needed at this time DOES PATIENT HAVE CLOTHING TO WEAR AT DISCHARGE? Yes ANTICIPATED MODE OF TRANSPORT UPON DISCHARGE: Family Car VERIFIED CORRECT PHARMACY IS ENTERED FOR DISCHARGE: Yes - Pharmacy: [facility] [address] [id number] CURRENT READMISSION RISK SCORE Predictive Risk Score Risk of Unplanned Readmission: 27.2 Please refer to readmission risk assessment flowsheet for further details. SIGNED: BON Marx, RN, PCCN-K, [facility] Hematology/Oncology Laminating Machine Offbearer Alpha Pager* [phone] STANT SURVEYOR Occupational Therapy - Susu Moise OTR/Jason - 10/19/2020 12:37 PM ASSISTANT SURVEYOR Occupational Therapy Acute Care Evaluation Impression/Recommendations Recommend patient will be able to return home with family and HHOT, upon discharge with medical stability. Will continue to update. Patient demonstrating decreased endurance and strength, and per pt report she is below her baseline for transfers, all of which decreases independence with ADL's and IADL's. Pt requiring SBA for seated ADL's and SBA for bed mobility at this time. Patient reports that sherequired a "boost" from RN when standing up from the commode prior to OT arrival. OT will continue to follow acutely. Admitting Diagnosis: No diagnosis found. History of Present Illness: Refer to H&P for details Past Medical History: Past Medical History: Diagnosis Date CE (acute kidney injury) (HCC) Allergy Anemia Cataract Clotting disorder (HCC) Deep vein thrombosis of left lower extremity (HCC) 02/18/2012 DM w/o Complication Type II Elevated factor VIII level Essential hypertension, benign Factor 5 Leiden mutation, heterozygous (HCC) history of per pt. Fatigue Finger infection 10/18/2020 Hx antineoplastic chemo Hypophosphatemia 10/18/2020 Iron deficiency Ischemic heel ulcer (HCC) 11/11/2013 IVC thrombosis (HCC) Lung nodule 08/20/2020 Malignant neoplasm of colon, unspecified site 11/28/2006 Malignant neoplasm of upper lobe of right lung (HCC) 09/01/2020 MRSA (methicillin resistant staph aureus) culture positive 07/2009 abd wound, 12/2015 foot Myocardial infarction (HCC) NSTEMI- pt denies 01/05/2020 Pancreatic mass 08/20/2020 Peripheral vascular disease (HCC) 11/11/2013 PVD (peripheral vascular disease) (HCC) Sepsis (HCC) Staph Infection NEC 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 Assistance needed with: driving Comments: Patient reports that one of her family members provide transportation. Adaptive Equipment Available: toilet safety frame, hand held shower, extended tub bench, airline stewardess, wheelchair and front-wheeled walker Present for Eval: patient Objective Activities of Daily Living: Feeding: Independent Grooming: TBA Upper Extremity Dressing: Patient is able to independent reposition and adjust her hospital gown while seated EOB. Lower Extremity Dressing: Patient able to doff/tra slipper socks while seated EOB with SBA. Bathing: TBA Toileting: Upon OT arrival, pt was finishing BM on commode - observed patient wipe self with SBA while seated. To further assess as able. Homemaking: TBA Transfers: Bed: Pt is able to sit at EOB with SBA. She completes sit to supine with SBA. Chair: TBA Toilet: TBA Tub/Shower: TBA Comments: Pt reports at baseline she completes squat pivot transfers into and out of her wheelchair. States she uses her wheelchair for mobilization around her home. Patient had just gotten back intobed from commode using squat pivot transfer with Silvina from RN, per patient report - states she needed a "little boost." Will further assess as able. At the end of the session, patient was left seated safely in bed. Call light, phone, and side tablewere all placed within patient reach. Informed to call a nurse if needing to get up or any additional assistance. Pt verbalized understanding. Pain: Pain at rest: 0/10 Pain during activity: 0/10 Upper Extremity Function: Range of Motion: Right:within functional limits Left: within functional limits Strength: Right: Grossly 4+/5 Left: Grossly 4+/5 Endurance: limited Coordination: intact Sensation: RUE index finger numb/tingling - pt reports from chemotherapy Edema: no Dominant Hand: right Orientation: Cognition: Alert and oriented x4. Attention: intact Following Directions: intact Visual/Perception: WFL - able to read whiteboard Glasses: Yes for reading. Education Education/Training provided: Role of OT, plan of care, goals, ADL's, discharge Learners: Patient Readiness: Acceptance Method of Training: Verbal education, demonstration Response: Verbalized/demonstrated understanding, will benefit from continued reinforcement Adaptive Equipment Recommendations Adaptive Equipment Recommended: TBA Adaptive Equipment Available: toilet safety frame, hand held shower, extended tub bench, airline stewardess, wheelchair and front-wheeled walker Plan to obtain adaptive equipment: To further assess. Assessment/Plan Assessment: Patient demonstrates decreased UE strength, decreased physical conditioning, decreased independence with ADL/IADL tasks and decreased independence with functional mobility Patient showing a decrease in ADL/transfer performance and will benefit from continued OT. Plan: Patient to be seen 3-5 times a week to work toward above goals Treatment plan will consist of Saturday thru Saturday sessions Goals Patient/Family Stated Goal for Session: none stated, agreeable to therapy session Short Term Goals: Patient will tolerate 15-30 minutes U/E exercise to further increase independence with ADL/IADLs Patient will complete grooming task safely standing at the sink with SBA using adaptive equipment asneeded. Patient will complete LB dressing safely with SBA using adaptive equipment as needed. Patient will complete toileting safely with SBA using adaptive equipment as needed. Patient will complete functional transfers safely with SBA using adaptive equipment as needed. Patient will further participate with cognitive assessment to increase safety with functional tasks. Patient will have AE in place to increase safety with ADLs by discharge Treatment Provided N/A Charges Treatment/Minutes: Today's Evaluation/Treatment Evaluation Total for time-based codes: 0 minutes Total treatment time: 23 minutes Evaluation Complexity PMH/Comorbidities that affect Occupational Performance: See H Occupational Profile/Medical and Therapy History: LOW - Brief history relating to presenting problem Patient Assessment: LOW - 1-3 performance deficits relating to physical, cognitive, psychosocial limitations/restrictions Clinical Decision Making: LOW - Low complexity, limited amount of treatment options, no assessment modification, no comorbidities Evaluation Complexity: Low Therapist Alpha Pager Number: [phone] are Planning - Emili Hernandez RD, LD - 10/19/2020 12:36 PM ASSISTANT SURVEYOR Problem: IMBALANCED NUTRITION: LESS THAN BODY REQUIREMENTS Goal: NUTRITIONAL STATUS: NUTRIENT INTAKE Description: DEFINITION: Nutrient intake to meet metabolic needs. 1=Not adequate, 2=Slightly adequate, 3=Moderately adequate, 4=Substantially adequate, 5=Totally adequate. Flowsheets (Taken 10/19/2020 4051) Initial Score: 2 Target Score: 4 Plan of care reviewed with: Patient Patient specific goal for the day: Pt to consume small, frequent meals throughout the day Patient specific goal for the stay: Meet >75% of nutrition needs Achieve goal for stay: By discharge Patient Progress: Pt with significant diarrhea, has lost lots of weight in the last year and month. Discussed better food choices high in soluble fiber to help thicken stools (handout at pt's bedside),and foods to avoid. Brought pt banana flakes/banatrol to try in applesauce, she liked it. Pt has packets in her room. Encouraged patient to have 2-3 packets daily mixed in applesauce, pudding or liquids. STANT SURVEYOR Physical Therapy - Jose Felder, EDNA - 10/19/2020 12:34 PM CST PHYSICAL THERAPY ACUTE CARE INITIAL EVALUATION RECOMMENDATIONS Assessment: Patient presents with decreased strength and functional mobility compared to baseline. Currently requires minimal assistance x1 (At Baseline - patient is independent with mobility with useof w/c and squat pivot transfers and lives with her two adult children). Patient will benefit from continued PT during her hospital stay. Plan to see patient 5x/wk. Based on current function, anticipate patient will need ongoing HHPT upon medical stability. Will update as appropriate. 6-Clicks Basic Mobility Score: 17 Daily activity prescription: Assist patient to chair 3 times per day for 30 to 60 minutes or for allmeals. Use Ax1 Assist patient to complete exercises 10 times, 3 times per day (in sitting): air boxing, lift arms above head, straighten knees, marching. Encourage patients to do personal cares when sitting up. Use bathroom or commode rather than bedpan. Anticipated D/C Service needs: HHPT Anticipated Assistive Device needs: TBD Admission Date: 10/18/2020 Admission Diagnosis: Dehydration, Multiple CA Procedures: No admission procedures for hospital encounter. Past Medical History: Diagnosis Date CE (acute kidney injury) (HCC) Allergy Anemia Cataract Clotting disorder (HCC) Deep vein thrombosis of left lower extremity (HCC) 02/18/2012 DM w/o Complication Type II Elevated factor VIII level Essential hypertension, benign Factor 5 Leiden mutation, heterozygous (HCC) history of per pt. Fatigue Finger infection 10/18/2020 Hx antineoplastic chemo Hypophosphatemia 10/18/2020 Iron deficiency Ischemic heel ulcer (HCC) 11/11/2013 IVC thrombosis (HCC) Lung nodule 08/20/2020 Malignant neoplasm of colon, unspecified site 11/28/2006 Malignant neoplasm of upper lobe of right lung (HCC) 09/01/2020 MRSA (methicillin resistant staph aureus) culture positive 07/2009 abd wound, 12/2015 foot Myocardial infarction (HCC) NSTEMI- pt denies 01/05/2020 Pancreatic mass 08/20/2020 Peripheral vascular disease (HCC) 11/11/2013 PVD (peripheral vascular disease) (HCC) Sepsis (HCC) Staph Infection NEC 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 Thymoma 02/10/2020 Tobacco abuse 11/13/2013 Past Surgical History: Procedure Laterality Date APPENDECTOMY ARTHROPLASTY ACETABULAR PROXIMAL FEMORAL PROSTHETIC REPLACE WWO AUTOG 20120103 ARTHROSCOPY KNEE SURGICAL SYNOVECTOMY LIMITED (SEP PROC) 20120103 BYPASS GRAFT WOTHER THAN VEIN FEMORAL-POPLITEAL 20120103 CHOLECYSTECTOMY COLECTOMY PARTIAL WCOLOPROCTOSTOMY (LOW PELVIC ANASTOMOSIS) 20120103 COLECTOMY PARTIAL WRESECTION WCOLOSTMY ILEOSTMY & CREATN MUCOFISTULA 20120103 COLON SURGERY COLONOSCOPY 06/30/2014 Procedure: COLONOSCOPY;; Surgeon: Des Carvalho MD COSMETIC SURGERY ERCP N/A 09/05/2020 Procedure: ENDOSCOPIC RETROGRADE CHOLANGIOPANCREATOGRAPHY;; Surgeon: Joey Pedersen MD EXPLORATORY LAPAROTOMY EXPLORATORY CELIOTOMY WWO BX(S) (SEP PROC) 20120103 EYE SURGERY HERNIA REPAIR INSERT TUNNELED CENTRALLY INSERTED VENOUS ACCESS DEVICE WSUBQ PORT 20120103 JOINT REPLACEMENT Right hip LAPAROSCOPY SURGICAL SLING OPERATION FOR STRESS INCONTINENCE 20120103 LIGATION TRANSECTION FALLOPIAN TUBE ABD VAGINAL APPRCH UNILAT BILAT 20120103 RPR INITIAL INCISIONAL VENTRAL HERNIA REDUCIBLE 20120103 RPR INITIAL INGUINAL HERNIA AGE 5+ REDUCIBLE 20120103 TUBAL LIGATION UPP ENDO W EUS EXT N/A 09/05/2020 Procedure: UPPER ENDOSCOPY WITH ENDOSCOPIC ULTRASOUND EXTENDED;; Surgeon: Joey Pedersen MD UPPER ENDOSCOPY 06/30/2014 Procedure: UPPER ENDOSCOPY;; Surgeon: Des Carvalho MD UPPER ENDOSCOPY N/A 09/05/2020 Procedure: UPPER ENDOSCOPY;; Surgeon: Joey Pedersen MD VASCULAR BYPASS 06/24/2012 RIGHT FEMORAL POPLITEAL BYPASS REDO; DEBRIDEMENT OF RIGHT LOWER LEG ULCER; Surgeon: Efra García DO Activity Orders: Activity as tolerated Precautions: high risk hazardous medication, fall risk, pressure ulcer risk SUBJECTIVE Willing to work with PT after encouragement. 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 Strength/ROM: Within Functional Limits Except As Indicated Right Left ROM WFL WFL Strength WFL Hip Flexion4-/5, Hip Abduction 4/5, Hip Adduction 4/5, Knee Flexion 4/5, Knee Extension 4/5, Ankle Dorsiflexion 3-/5 and Ankle Plantarflexion 3/5 WFL Hip Flexion4-/5, Hip Abduction 4/5, Hip Adduction 4/5, Knee Flexion 4/5, Knee Extension 4/5, Ankle Dorsiflexion 4/5 and Ankle Plantarflexion 4/5 UE screen: refer to OT for UE screening Functional Mobility: Bed mobility: modified independent Bed rails Supine to Sit: modified independent Bed rails Sit to Supine: independent Sit to/from Stand:minimal assistance Stand Pivot:minimal assistance Comments: Declined ambulation. Squat pivot transfer from EOB to commode with Silvina to stand - did not bear weight through right LE during transfers Gait: Stated she has used a wheelchair for approx. 1 year, does not ambulate as she believes it is easier to complete her housework from the wheelchair rather than using a walker. Balance: Sitting Balance: Static - good Dynamic - fair Coordination: intact Sensation: diminished Treatment today: eval and activity - transfer <> BSC. Tolerated session well. Will need continued education on benefits of PT and increased functional mobility. Patient Education: Patient educated on role of PT, POC and HHPT d/c option today through explanation. Patient verbilzed understanding and will need reenforcement. Interdisciplinary Communication: Notified nurse IV site pain during session. ASSESSMENT SUMMARY/RECOMMENDATIONS Factors affecting function: Physical Impairments: trunk weakness, right lower extremity weakness and left lower extremity weakness Functional Limitations: transfers, sitting balance, standing balance, gait, wheelchair mobility and functional endurance Goals: Patient/Family Retirement/Ultimate Goals: Return home safely Related Clinical Goals: Bed Mobility: Patient will transfer sit to/from supine with independently. Transfers: Patient will transfer from sit to stand with contact guard assist and equipment as neededto allow for safe household mobility. PLAN PT Frequency of therapy recommended: Daily M-F PT Plan of Care: balance training bed mobility training education equipment gait training neuromuscular re-education other unspecified therapy services postural training therapeutic activity therapeutic exercise transfer training wheelchair training Evaluation, goals, and plan discussed with patient Total Time Spent: PT = 30 minutes Eval = completed TherAct = 15 min Gait = 0 min TherEx = 0 min Physical Therapist: EDNA Stephen Alpha Pager: [phone] STANT SURVEYOR Associated attestation - Mariah Hedrick PT - 10/19/2020 1:14 PM CSTThis practitioner was present and in the room for the entire session, guiding the student in servicedelivery. Documentation was edited and reviewed by this practitioner prior to signature application. Mariah Hedrick PT Alpha pager: [phone] Respiratory Therapy - Dipti Renner HEAD FIELD HOCKEY COACH - 10/19/2020 11:44 AM CSTPatient was seen by inpatient Nicotine Replacement Therapy protocol to assess need for Nicotine Replacement Therapy and tobacco cessation education. Patient is a former tobacco user, patient states shequit two weeks ago, has been using a patch on and off. Nursing has ordered 21mg patch per NRT Protocol. Patient was open to tobacco education at this time. Education was completed including discussionon the following topics: coping skills, expect/intake, lifestyle changes, nicotine addiction, quitting meds, recognizing tempting situations and relapse prevention Are you ready to quit?: Yes Stage of change: Action Triggers: stress Barriers to quitting: dealing with stress and habit Relapse prevention: coping skills, lifestyle changes and recognizing tempting situations An informational packet was given to the patient with recommended use of NRT. Encouraged patient tocontact us if needed or utilize the Quitline (6-059-PVOE-NOW). Dipti Renner, EVELINA Disease Management Respiratory Care Services [facility] OCN / Skin Team - Darlene Cisneros RN - 10/19/2020 10:02 AM CSTWound Care Nurse Visit: Location of visit: Hospital Indication for visit: Consult for wound care recommendations for chronic wounds to right heel and right index finger. Patient also has what appears to be a chronic wound to her left posterior thigh. Assessment: Location of wound: Right heel Status: chronic Wound type: Diabetic foot ulcer, patient follows with Dr. Werner at [facility] Pain: None Wound Configuration: Approximatley Dimension: length: 2 cm, width: 5 cm and depth: 0.1 cm Wound Bed: Before debridement: Color: pink and red After debridement: Not indicated Charu-wound skin: intact Wound exudate: none Wound Odor: no Treatment per wound care protocols: Wound Irrigation/Cleansing: wash with mild soap and water Dressing Type per wound care protocols: Dressinx4 gauze, gauze roll and Xeroform Change daily and PRN Dressing to right index finger had just been replaced by nursing. Non adherent dressing with gauze wrap being used to this wound as well. Change daily and PRN Left posterior thigh wound, approximately 0.4 cm x 0.4 cm x 0.1 cm, yellow/pink wound base, no drainage. Periwound skin intact. Mepilex dressing in place. Wound care will follow patient weekly and PRN. STANT SURVEYOR Nutrition Team - Emili Hernandez, RD, LD - 10/19/2020 8:58 AM CST Nutrition Therapy Initial Assessment Referral: BPA with MST score of 2 Hospital Day: 1 days Active Problems: Dehydration d/t diarrhea Newly diagnosed lung and pancreatic cancer, on radiation PMH: T2DM, Diabetic ulcer of heel, HTN, Tobacco abuse, Iron deficiency, NSTEMI, Hx of colon cancer, s/p hemicolectomy with ileostomy, liver cancer s/p partial hepatic resection, COPD Recommendations: 1) Encourage intake of small, frequent meals throughout the day 2) Encourage Banatrol (bananaflakes) 2-3x/day mixed in applesauce or pudding to help thicken stools. 3) RN/ROCKET TEST FIRE WORKER to assist with meal ordering as patient doesn't have her glasses (can't see the menu well) Malnutrition Summary Malnutrition Assessment Date: 10/19/20 Severe protein-calorie malnutrition Malnutrition Characteristics in the Context of Chronic Illness (greater than 3 months): Energy Intake: Less than or equal to 75% intake of estimated energy needs for greater than or equal to 1 month Severe Weight Loss: Greater than 20% in 1 year Subcutaneous Fat Loss: Moderate Muscle Loss: Moderate Interventions: Monitor oral intake/advance diet as tolerated;Supplement diet with ONS (oral nutrition supplements)/nutrient dense foods;Vitamin/mineral supplementation NUTRITION ASSESSMENT Visited with patient this morning. She reports increased diarrhea since starting radiation 2 weeks ago, that everything "goes right through her." Pt voices having chronic diarrhea which she takes imodium for. Pt reports decreased intake d/t this. Pt has lost 50 lb since 01/2020 and 14 lb in the last month, both considered significant. Pt was started on pancreatic enzymes last month per chart review. Discussed nutrition education for diarrhea, and voiced foods high in soluble fiber to help thicken stools. Encouraged low lactose and reducing carbonation and caffeine. Pt did try banana flakes in applesauce this morning and liked it. Encouraged her to try to have at least 2 packets daily in applesauce or pudding. Handouts for diarrhea management left at bedside and added to discharge instructions. Anthropometrics: Height: 149.9 cm (4' 11") Admission Weight: 52.8 kg (116 lb 6.5 oz) as of 10/18/2020 per bed scale Most Recent Weight: 52.8 kg (116 lb 6.5 oz) (10/18/20 1532) per bed scale BMI: Body mass index is 23.51 kg/m. IBW: 45 kg %IBW: 117% (based on admit weight) Usual Body Weight: Unknown at this time Unintentional Weight Loss: Pt has lost 50 lb (30%) in <1 year AND 14 lb (11%) in 1 month, both clinically significant. Pt weighted ~180-190 lb in 2019, and has been losing weight since per EMR. Estimated Needs: 4895-2773 kcal/day (30 kcal/kg Using: Admission Weight) 65-80 gm protein (1.3-1.5 gm/kg Using:Admission Weight) Fluids per MD Intake Records: Intake Prior to Admit: Less than 75% of estimated energy requirements for greater than or equal to 1month Patient voices decreased intake d/t frequent diarrhea. She voices that she chronically has diarrhea,but that it has increased significantly since she started radiation 2 weeks ago. She voices normallyeating 1-2 meals daily, her main meal being in the evening with her family. Pt lives with her children. She voices that she has been trying to eat bananas and potatoes for extra potassium. She voices that her daughter bought her a bunch of different nutritional drinks but that she doesn't like them. Pt voices liking to drink water and 1 regular coke throughout the day. Lunch: sandwich (a bun with meat and cheese), or plain pasta with butter, salt and pepper Supper: meat (shrimp, roast) with mashed potatoes, or fettuccine magi pasta with shrimp Current Intake: Pt ate 50% of breakfast this morning (263 kcal, 13 gm protein). She also ate 1 applesauce with bananaflakes while this telegraphic typewriter installer was visiting. Current Diet: Nutrition (From admission, onward) Start Ordered 10/18/20 1700 Supplement [facility]; Boost Breeze BID BID Comments: Give supplement cold with medications twice a day. The supplement is an intervention for identified nutrition risk factors. * Do not give if patient is NPO (unless the orders specify NPO with supplement) or if medication should not be given with food. Question Answer Comment Location [facility] Dietary Supplement Boost Tyree 10/18/20 1658 10/18/20 1600 Diet - Diabetic Now Question: Modified Diets Answer: Diabetic 10/18/20 1556 Physical Assessment: Edema: (per solar site assessment specialist at 10/18) ? RUE Edema 1 ? RLE Edema 1 GI Assessment: ? Abdominal exam: Non-tender, Soft and Surgical Scar with Active, Audible bowel sounds, per solar site assessment specialist at 10/18. ? Stool Frequency: 5x noted yesterday Wounds/Pressure Points: (per solar site assessment specialist at 10/18) ? Coccyx Non-Blanchable Redness ? Heel Right, Open with yellow wound bed Functional Status: PT Following OT Following Nutrition Focused Physical Exam: Completed by RD on 10/19/2020 Below the Eye (fat): Slightly dark circles, somewhat hollow look (mild-moderate)(Moderate) Oriental Orthodox (muscle): Slight depression (mild-moderate)(Moderate) Buccal (fat): Flat cheeks (moderate) Clavicle (muscle): Some protrusion of bone (mild-moderate)(Moderate) Shoulder (muscle)/Deltoid muscle: Acromion process slightly protrudes (mild- moderate)(Moderate to severe) Triceps/Biceps (fat): Some depth to pinch, but not ample (mild-moderate)(Mild) Hand/Interosseous (muscle): Slightly depressed (mild-moderate) Thigh (muscle): Mild depression on inner thigh (mild-moderate)(Moderate - pt voices using wheelchairoften) Calf (muscle): Not well developed (mild-moderate)(Moderate - pt voices using wheelchair often) Nutritionally-Relevant Medications, Vitamins and Minerals: Lomotil, glipizide ER, CS Novolog, Creon, Thera-M, Vitamin K, potassium chloride, potassium phosphate IV Nutritionally-Relevant Biochemical Data: (10/19/2020) Glucose 203 H Sodium 133 L Potassium 3.0 L Phosphorus 2.2 L Albumin 2.3 L Allergies/Food Intolerance: Blair is allergic to penicillin; adhesives; bactericin [bacitracin]; cortisporin [arswlffh-xoammrsnn-sv]; hydrocortisone [cortizone]; levofloxacin; lincocin; medihoney ca alginate 2"x2" [alginate - carboxymethylcellulose - silver]; monistat [tioconazole]; septra [sulfameth oxazole w-trimethoprim]; silvadene [silver sulfadiazine]; silver picrate; soap; sodium acetate; sulfa drugs; sulfamethoxazole w-trimethoprim; tpn electrolytes ii [lypholyte]; and xeroform [bismuth tribromoph-petrolatum]. Culturally Pentecostalism Needs: no INTERVENTIONS Encouraged adequate calories and optimal protein in small, frequent meals and snacks Will send snacks and supplements BID Provided nutrition education on diarrhea Conducted NFPE Obtained diet history Consult acknowledged and EMR reviewed MONITORING/EVALUATION Monitor ability to consume and tolerate adequate intake to approximate estimated needs with accomodation of preferences and tolerances until intake is sustained within desirable limits Monitor I&O, weight trends, nutrition-related labs and medications, clinical status, and planof care r/t need for nutrition intervention and provide as warranted Nutrition Therapy will reassess every 1-[address], LRD Alpha Pager # [phone] are Planning - Cori Hurtado RN - 10/19/2020 2:27 AM ASSISTANT SURVEYOR Problem: RISK FOR FALLS Goal: FALL PREVENTION BEHAVIOR Description: DEFINITION: Personal or family respiratory care specialist actions to minimize risk factors that might precipitate falls in the personal environment. 1=Never demonstrated, 2=Rarely demonstrated, 3=Sometimes demonstrated, 4=Often demonstrated, 5=Consistently demonstrated. Flowsheets (Taken 10/19/2020 022) Initial Score: 2 Patient specific goal for the day: Pt will use call light appropriately Patient Progress: Patient has used call light this shift. Currently up with 1-2 and GB. Does not want to use gait belt. Educated on safety and fall risks. Bed alarm currently in place, will continue tomonitor. are Planning - Aleyda Cervantes RN - 10/18/2020 7:44 PM ASSISTANT SURVEYOR Problem: RISK FOR FALLS Goal: FALL PREVENTION BEHAVIOR Description: DEFINITION: Personal or family respiratory care specialist actions to minimize risk factors that might precipitate falls in the personal environment. 1=Never demonstrated, 2=Rarely demonstrated, 3=Sometimes demonstrated, 4=Often demonstrated, 5=Consistently demonstrated. Outcome: NOC Rating 2 Flowsheets (Taken 10/18/20201938) Initial Score: 2 Plan of care reviewed with: Patient Patient specific goal for the day: Pt will use call light appropriately Patient specific goal for the stay: NO falls Achieve goal for stay: By discharge Patient Progress: No falls thus far this shift. PT is up with 1-2 with a GB to the [facility] [place] [place]. Bed alarm inplace. PT uses call light at times. PT is inpatient and does not want to use gaitbelt or want help going to bathroom. Pt educated on fall precaution policies. Fall precaution sin place. Problem: DIARRHEA Goal: BOWEL ELIMINATION Description: Description: Formation and evacuation of stool. 1 = Severely compromised, 2 = Substantially compromised, 3 = Moderately compromised, 4 = Mildly compromised, 5 = Not compromised. Outcome: NOC Rating 3 Flowsheets (Taken 10/18/20201938) Initial Score: 3 Target Score: 4 Plan of care reviewed with: Patient Patient specific goal for the day: Pt will inform nurse if having stomach pain Patient specific goal for the stay: x3 or less diarhea a day Achieve goal for stay: By discharge Patient Progress: Pt admitted for diarrhea. Pt had x1 stool this shift. linical Team - Aleyda Cervantes RN - 10/18/2020 5:03 PM CSTTwo nurse skin assessment done with David Rubin RN. Pt has nonblanchable redess to coccyx, healed scars to abdomen, blanchable redness to left groin, small open area to back of left thigh below butt, Open diabetic ulcer to inside of right heal, redness to right hand and pointer finger, pointer finger nail fell off yesterday per pt. Right sweet michele and scabby. Scabs to top of left foot. Wound nurse consulted. linical Team - Aleyda Cervantes RN - 10/18/2020 5:02 PM CSTArrived at 1526 accompanied by aid. Admitted for dehydration. Settled in room 746 and oriented to call light, bed/tv control. Refer to Patient Admission Education. Dr. de la cruz notified of patientsarrival. Admission navigator initiated documented in this encounter Plan of Treatment Date Type Specialty Care Team Description 11/30/2020 Office Visit Infectious Diseases Sandra Burgos MD [address] [place], [place] [phone] 02/14/2021 Appointment Radiology Conner Yates M D [address] [place] [address] [phone] 02/14/2021 Office Visit Radiation Oncology Bernard Engel MD [address] [place] [address] [phone] Name Type Priority Associated Date/Time Diagnoses PREPARE AND HOLD Lab Routine 10/24/2020 2:00 FRESH FROZEN PLASMA PM ASSISTANT SURVEYOR IN MLS- BLOOD BANK, 400 mL TRANSFUSE FRESH Nursing Transfusion Routine 10/24 2:50 FROZEN PLASMA IN PM ASSISTANT SURVEYOR MLS, 400 mL TRANSFUSE FRESH Nursing Transfusion Routine 10/24 2:50 FROZEN PLASMA IN PM ASSISTANT SURVEYOR MLS Name Type Priority Associated Diagnoses Order S chedule PREPARE AND HOLD FRESH Lab Routine Once for 1 Occurrences FROZEN PLASMA IN MLS- starti ng 10/24/2020 BLOOD BANK, 400 mL until 08/2020 COMPLETE BLOOD COUNT Lab Routine Early A M draw for labs WITH DIFFERENTIAL until disc ontinued starting 2020, 7 completed MAGNESIUM Lab Routine Early AM draw f or labs until discontin ued starting 2020, 7 completed PROTIME/INR Lab Routine Early AM draw f or labs until discontin ued starting 2020, 7 completed PROTIME/INR Lab Routine Early AM draw f or labs until discontin ued starting 2020 RENAL FUNCTION PANEL Lab Routine Early A M draw for labs until discontin ued starting 2020, 7 completed COMPLETE BLOOD COUNT Lab Routine Osteomyelit is (HCC) Expected: 12/09/2020, WITH DIFFERENTIAL Type 2 diabetes mellitu s Expires: 12/19/2021 with diabetic peripheral angiopathy without gangrene, without long-term current use of insulin (HCC) Diarrhea, unspecified type Hypokalemia Dehydration 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) Malignant neoplasm of head of pancreas (HCC) 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, with fat layer exposed (HCC) Hypomagnesemia Open wound COMPREHENSIVE METABOLIC Lab Routine Osteomye litis (HCC) Expected: 12/09/2020, PANEL Type 2 diabetes mellitus Exp ires: 12/19/2021 with diabetic peripheral angiopathy without gangrene, without long-term current use of insulin (HCC) Diarrhea, unspecified type Hypokalemia Dehydration 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) Malignant neoplasm of head of pancreas (HCC) 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, with fat layer exposed (HCC) Hypomagnesemia Open wound LDH TOTAL Lab Routine Osteomyelitis (H CC) Expected: 12/09/2020, Type 2 diabetes mellitus Exp ires: 12/19/2021 with diabetic peripheral angiopathy without gangrene, without long-term current use of insulin (HCC) Diarrhea, unspecified type Hypokalemia Dehydration 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) Malignant neoplasm of head of pancreas (HCC) 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, with fat layer exposed (HCC) Hypomagnesemia Open wound MAGNESIUM Lab Routine Osteomyelitis (H CC) Expected: 12/09/2020, Type 2 diabetes mellitus Exp ires: 12/19/2021 with diabetic peripheral angiopathy without gangrene, without long-term current use of insulin (HCC) Diarrhea, unspecified type Hypokalemia Dehydration 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) Malignant neoplasm of head of pancreas (HCC) 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, with fat layer exposed (HCC) Hypomagnesemia Open wound Name Type Priority Associated Diagnoses Order S [place] [facility] DISCHARGE Referral Routine Once for 1 Occurrences WARFARIN ANTICOAG starting 0 11/18/2020 ORDER until documented as of this encounter Implants Implanted Type Area Tracer Clerk Device Shelf Model / Serial Identifier Expiration / Lot Date Stnt Wllflx Rx [id number] N [id number] Ea1 - [id number] Gastroenterology N/A: JASKARAN ROBISON 03/18/2022 [id number] / Implanted: Qty: 1 on 09/05/2020 by Joey Olivo MD at [facility] [employer] [id number] / [id number] Graft Propaten Ring 6x40cm N [id number] Ea - [id number] Vascular Righ t: MARIA EUGENIA IBARRA 01/23/2016 [id number] / Implanted: Qty: 1 on 06/24/2012 by Efra Myers cht, DO at [facility] [employer] / [id number] documented as of this encounter Procedures Procedure Name Priority Date/Time Associated Diagnosis Comme nts GLUCOSE BY METER, Routine 11/18/2020 11:29 Result s for POCT AM CDT this procedure are in the results section. GLUCOSE BY METER, Routine 11/18/2020 5:57 Result s for POCT AM CDT this procedure are in the results section. LAB ONLY-COMPLETE Routine 11/18/2020 5:49 Result s for BLOOD COUNT WITH AM CDT this proced ure DIFFERENTIAL are in the results section. PROTIME/INR Routine 11/18/2020 5:49 Results for AM CDT this procedure are in the results section. MAGNESIUM Routine 11/18/2020 5:49 Results for AM CDT this procedure are in the results section. RENAL FUNCTION PANEL Routine 11/18/2020 5:49 Res ults for AM CDT this procedure are in the results section. LAB ONLY-COMPLETE Routine 11/18/2020 5:49 Result s for BLOOD COUNT WITH AM CDT this proced ure DIFFERENTIAL are in the results section. GLUCOSE BY METER, Routine 11/17/2020 9:39 Result s for POCT PM CDT this procedure are in the results section. GLUCOSE BY METER, Routine 11/17/2020 5:16 Result s for POCT PM CDT this procedure are in the results section. SARS-COV-2, STAT 11/17/2020 1:39 Results for INFLUENZA A+B, PM CDT this procedur e AND/OR RSV NUCLEIC are in th e ACID TESTING PANEL results section. GLUCOSE BY METER, Routine 11/17/2020 10:59 Result s for POCT AM CDT this procedure are in the results section. LAB ONLY-COMPLETE Routine 11/17/2020 10:50 Result s for BLOOD COUNT WITH AM CDT this proced ure DIFFERENTIAL are in the results section. PROTIME/INR Routine 11/17/2020 10:50 Results for AM CDT this procedure are in the results section. MAGNESIUM Routine 11/17/2020 10:50 Results for AM CDT this procedure are in the results section. RENAL FUNCTION PANEL Routine 11/17/2020 10:50 Res ults for AM CDT this procedure are in the results section. LAB ONLY-COMPLETE Routine 11/17/2020 10:50 Result s for BLOOD COUNT WITH AM CDT this proced ure DIFFERENTIAL are in the results section. GLUCOSE BY METER, Routine 11/17/2020 5:01 Result s for POCT AM CDT this procedure are in the results section. GLUCOSE BY METER, Routine 11/16/2020 8:42 Result s for POCT PM CDT this procedure are in the results section. GLUCOSE BY METER, Routine 11/16/2020 6:18 Result s for POCT PM CDT this procedure are in the results section. GLUCOSE BY METER, Routine 11/16/2020 5:34 Result s for POCT PM CDT this procedure are in the results section. GLUCOSE BY METER, Routine 11/16/2020 5:10 Result s for POCT PM CDT this procedure are in the results section. VANCOMYCIN TROUGH Timed Routine 11/16/2020 12:11 Resul ts for PM CDT this procedure are in the results section. GLUCOSE BY METER, Routine 11/16/2020 12:01 Result s for POCT PM CDT this procedure are in the results section. GLUCOSE BY METER, Routine 11/16/2020 11:00 Result s for POCT AM CDT this procedure are in the results section. LAB ONLY-COMPLETE Routine 11/16/2020 6:47 Result s for BLOOD COUNT WITH AM CDT this proced ure DIFFERENTIAL are in the results section. PROTIME/INR Routine 11/16/2020 6:47 Results for AM CDT this procedure are in the results section. MAGNESIUM Routine 11/16/2020 6:47 Results for AM CDT this procedure are in the results section. RENAL FUNCTION PANEL Routine 11/16/2020 6:47 Res ults for AM CDT this procedure are in the results section. LAB ONLY-COMPLETE Routine 11/16/2020 6:47 Result s for BLOOD COUNT WITH AM CDT this proced ure DIFFERENTIAL are in the results section. GLUCOSE BY METER, Routine 11/16/2020 5:41 Result s for POCT AM CDT this procedure are in the results section. GLUCOSE BY METER, Routine 11/15/2020 8:51 Result s for POCT PM CDT this procedure are in the results section. GLUCOSE BY METER, Routine 11/15/2020 5:52 Result s for POCT PM CDT this procedure are in the results section. GLUCOSE BY METER, Routine 11/15/2020 12:11 Result s for POCT PM CDT this procedure are in the results section. LAB ONLY-COMPLETE Routine 11/15/2020 5:46 Result s for BLOOD COUNT WITH AM CDT this proced ure DIFFERENTIAL are in the results section. PROTIME/INR Routine 11/15/2020 5:46 Results for AM CDT this procedure are in the results section. MAGNESIUM Routine 11/15/2020 5:46 Results for AM CDT this procedure are in the results section. RENAL FUNCTION PANEL Routine 11/15/2020 5:46 Res ults for AM CDT this procedure are in the results section. LAB ONLY-COMPLETE Routine 11/15/2020 5:46 Result s for BLOOD COUNT WITH AM CDT this proced ure DIFFERENTIAL are in the results section. GLUCOSE BY METER, Routine 11/15/2020 5:31 Result s for POCT AM CDT this procedure are in the results section. GLUCOSE BY METER, Routine 11/14/2020 9:35 Result s for POCT PM CDT this procedure are in the results section. GLUCOSE BY METER, Routine 11/14/2020 5:26 Result s for POCT PM CDT this procedure are in the results section. IR PICC OR CENTRAL Routine 11/14/2020 4:59 Resul ts for LINE REMOVAL PM CDT this procedure are in the results section. IR PICC OR CENTRAL Routine 11/14/2020 4:59 Resul ts for LINE PLACEMENT PM CDT this procedur e are in the results section. GLUCOSE BY METER, Routine 11/14/2020 12:23 Result s for POCT PM CDT this procedure are in the results section. GLUCOSE BY METER, Routine 11/14/2020 11:50 Result s for POCT AM CDT this procedure are in the results section. GLUCOSE BY METER, Routine 11/14/2020 11:15 Result s for POCT AM CDT this procedure are in the results section. LAB ONLY-COMPLETE Routine 11/14/2020 10:49 Result s for BLOOD COUNT WITH AM CDT this proced ure DIFFERENTIAL are in the results section. PROTIME/INR Routine 11/14/2020 10:49 Results for AM CDT this procedure are in the results section. MAGNESIUM Routine 11/14/2020 10:49 Results for AM CDT this procedure are in the results section. RENAL FUNCTION PANEL Routine 11/14/2020 10:49 Res ults for AM CDT this procedure are in the results section. LAB ONLY-COMPLETE Routine 11/14/2020 10:49 Result s for BLOOD COUNT WITH AM CDT this proced ure DIFFERENTIAL are in the results section. GLUCOSE BY METER, Routine 11/14/2020 5:48 Result s for POCT AM CDT this procedure are in the results section. GLUCOSE BY METER, Routine 11/13/2020 9:55 Result s for POCT PM CDT this procedure are in the results section. GLUCOSE BY METER, Routine 11/13/2020 5:24 Result s for POCT PM CDT this procedure are in the results section. GLUCOSE BY METER, Routine 11/13/2020 11:33 Result s for POCT AM CDT this procedure are in the results section. LAB ONLY-COMPLETE Routine 11/13/2020 8:51 Result s for BLOOD COUNT WITH AM CDT this proced ure DIFFERENTIAL are in the results section. PTT Routine 11/13/2020 8:51 Results for AM CDT this procedure are in the results section. PROTIME/INR Routine 11/13/2020 8:51 Results for AM CDT this procedure are in the results section. HEPATIC FUNCTION Routine 11/13/2020 8:51 Results for PANEL AM CDT this procedure are in the results section. MAGNESIUM Routine 11/13/2020 8:51 Results for AM CDT this procedure are in the results section. RENAL FUNCTION PANEL Routine 11/13/2020 8:51 Res ults for AM CDT this procedure are in the results section. LAB ONLY-COMPLETE Routine 11/13/2020 8:51 Result s for BLOOD COUNT WITH AM CDT this proced ure DIFFERENTIAL are in the results section. VENOUS DUPLEX UPPER STAT 11/13/2020 8:31 Resu lts for EXTREMITY DARWIN AM CDT this procedure are in the results section. GLUCOSE BY METER, Routine 11/13/2020 5:03 Result s for POCT AM CDT this procedure are in the results section. GLUCOSE BY METER, Routine 11/12/2020 9:12 Result s for POCT PM CDT this procedure are in the results section. GLUCOSE BY METER, Routine 11/12/2020 5:04 Result s for POCT PM CDT this procedure are in the results section. LAB ONLY-MANUAL Routine 11/12/2020 12:17 Results for DIFFERENTIAL PM CDT this procedure are in the results section. LAB ONLY-COMPLETE Routine 11/12/2020 12:17 Result s for BLOOD COUNT WITH PM CDT this proced ure DIFFERENTIAL are in the results section. PROTIME/INR Routine 11/12/2020 12:17 Results for PM CDT this procedure are in the results section. MAGNESIUM Routine 11/12/2020 12:17 Results for PM CDT this procedure are in the results section. RENAL FUNCTION PANEL Routine 11/12/2020 12:17 Res ults for PM CDT this procedure are in the results section. LAB ONLY-COMPLETE Routine 11/12/2020 12:17 Result s for BLOOD COUNT WITH PM CDT this proced ure DIFFERENTIAL are in the results section. GLUCOSE BY METER, Routine 11/12/2020 11:53 Result s for POCT AM CDT this procedure are in the results section. GLUCOSE BY METER, Routine 11/12/2020 11:32 Result s for POCT AM CDT this procedure are in the results section. GLUCOSE BY METER, Routine 11/12/2020 5:38 Result s for POCT AM CDT this procedure are in the results section. GLUCOSE BY METER, Routine 11/11/2020 9:09 Result s for POCT PM CDT this procedure are in the results section. GLUCOSE BY METER, Routine 11/11/2020 5:55 Result s for POCT PM CDT this procedure are in the results section. GLUCOSE BY METER, Routine 11/11/2020 11:48 Result s for POCT AM CDT this procedure are in the results section. GLUCOSE BY METER, Routine 11/11/2020 5:45 Result s for POCT AM CDT this procedure are in the results section. LAB ONLY-COMPLETE Routine 11/11/2020 5:36 Result s for BLOOD COUNT WITH AM CDT this proced ure DIFFERENTIAL are in the results section. PROTIME/INR Routine 11/11/2020 5:36 Results for AM CDT this procedure are in the results section. MAGNESIUM Routine 11/11/2020 5:36 Results for AM CDT this procedure are in the results section. RENAL FUNCTION PANEL Routine 11/11/2020 5:36 Res ults for AM CDT this procedure are in the results section. LAB ONLY-COMPLETE Routine 11/11/2020 5:36 Result s for BLOOD COUNT WITH AM CDT this proced ure DIFFERENTIAL are in the results section. GLUCOSE BY METER, Routine 11/10/2020 8:37 Result s for POCT PM CDT this procedure are in the results section. GLUCOSE BY METER, Routine 11/10/2020 5:37 Result s for POCT PM CDT this procedure are in the results section. GLUCOSE BY METER, Routine 11/10/2020 11:06 Result s for POCT AM CDT this procedure are in the results section. LAB ONLY-COMPLETE Routine 11/10/2020 5:41 Result s for BLOOD COUNT WITH AM CDT this proced ure DIFFERENTIAL are in the results section. GLUCOSE BY METER, Routine 11/10/2020 5:41 Result s for POCT AM CDT this procedure are in the results section. PROTIME/INR Routine 11/10/2020 5:41 Results for AM CDT this procedure are in the results section. MAGNESIUM Routine 11/10/2020 5:41 Results for AM CDT this procedure are in the results section. RENAL FUNCTION PANEL Routine 11/10/2020 5:41 Res ults for AM CDT this procedure are in the results section. LAB ONLY-COMPLETE Routine 11/10/2020 5:41 Result s for BLOOD COUNT WITH AM CDT this proced ure DIFFERENTIAL are in the results section. GLUCOSE BY METER, Routine 11/09/2020 11:21 Result s for POCT PM CDT this procedure are in the results section. GLUCOSE BY METER, Routine 11/09/2020 5:36 Result s for POCT PM CDT this procedure are in the results section. GLUCOSE BY METER, Routine 11/09/2020 11:30 Result s for POCT AM CDT this procedure are in the results section. VANCOMYCIN TROUGH Timed Routine 11/09/2020 10:24 Resul ts for AM CDT this procedure are in the results section. GLUCOSE BY METER, Routine 11/09/2020 5:44 Result s for POCT AM CDT this procedure are in the results section. LAB ONLY-COMPLETE Routine 11/09/2020 5:25 Result s for BLOOD COUNT WITH AM CDT this proced ure DIFFERENTIAL are in the results section. PROTIME/INR Routine 11/09/2020 5:25 Results for AM CDT this procedure are in the results section. MAGNESIUM Routine 11/09/2020 5:25 Results for AM CDT this procedure are in the results section. RENAL FUNCTION PANEL Routine 11/09/2020 5:25 Res ults for AM CDT this procedure are in the results section. LAB ONLY-COMPLETE Routine 11/09/2020 5:25 Result s for BLOOD COUNT WITH AM CDT this proced ure DIFFERENTIAL are in the results section. GLUCOSE BY METER, Routine 11/08/2020 5:51 Result s for POCT PM CDT this procedure are in the results section. GLUCOSE BY METER, Routine 11/08/2020 11:14 Result s for POCT AM CDT this procedure are in the results section. GLUCOSE BY METER, Routine 11/08/2020 5:25 Result s for POCT AM CDT this procedure are in the results section. LAB ONLY-COMPLETE Routine 11/08/2020 4:30 Result s for BLOOD COUNT WITH AM CDT this proced ure DIFFERENTIAL are in the results section. PROTIME/INR Routine 11/08/2020 4:30 Results for AM CDT this procedure are in the results section. MAGNESIUM Routine 11/08/2020 4:30 Results for AM CDT this procedure are in the results section. RENAL FUNCTION PANEL Routine 11/08/2020 4:30 Res ults for AM CDT this procedure are in the results section. LAB ONLY-COMPLETE Routine 11/08/2020 4:30 Result s for BLOOD COUNT WITH AM CDT this proced ure DIFFERENTIAL are in the results section. LAB ONLY-URINE Routine 11/07/2020 10:52 Results f or MICROSCOPIC REFLEX PM CDT this proc edure are in the results section. URINE DIP, REFLEX TO Routine 11/07/2020 10:52 Res ults for MICROSCOPIC, REFLEX PM CDT this pro cedure TO CULTURE are in the results section. GLUCOSE BY METER, Routine 11/07/2020 8:52 Result s for POCT PM CDT this procedure are in the results section. GLUCOSE BY METER, Routine 11/07/2020 5:30 Result s for POCT PM CDT this procedure are in the results section. GLUCOSE BY METER, Routine 11/07/2020 11:32 Result s for POCT AM CDT this procedure are in the results section. LAB ONLY-COMPLETE Routine 11/07/2020 6:25 Result s for BLOOD COUNT WITH AM CDT this proced ure DIFFERENTIAL are in the results section. PROTIME/INR Routine 11/07/2020 6:25 Results for AM CDT this procedure are in the results section. MAGNESIUM Routine 11/07/2020 6:25 Results for AM CDT this procedure are in the results section. RENAL FUNCTION PANEL Routine 11/07/2020 6:25 Res ults for AM CDT this procedure are in the results section. LAB ONLY-COMPLETE Routine 11/07/2020 6:25 Result s for BLOOD COUNT WITH AM CDT this proced ure DIFFERENTIAL are in the results section. GLUCOSE BY METER, Routine 11/07/2020 5:58 Result s for POCT AM CDT this procedure are in the results section. GLUCOSE BY METER, Routine 11/06/2020 9:00 Result s for POCT PM CDT this procedure are in the results section. GLUCOSE BY METER, Routine 11/06/2020 5:28 Result s for POCT PM CDT this procedure are in the results section. GLUCOSE BY METER, Routine 11/06/2020 11:50 Result s for POCT AM CDT this procedure are in the results section. LAB ONLY-COMPLETE Routine 11/06/2020 5:07 Result s for BLOOD COUNT WITH AM CDT this proced ure DIFFERENTIAL are in the results section. PROTIME/INR Routine 11/06/2020 5:07 Results for AM CDT this procedure are in the results section. MAGNESIUM Routine 11/06/2020 5:07 Results for AM CDT this procedure are in the results section. RENAL FUNCTION PANEL Routine 11/06/2020 5:07 Res ults for AM CDT this procedure are in the results section. LAB ONLY-COMPLETE Routine 11/06/2020 5:07 Result s for BLOOD COUNT WITH AM CDT this proced ure DIFFERENTIAL are in the results section. GLUCOSE BY METER, Routine 11/06/2020 5:04 Result s for POCT AM CDT this procedure are in the results section. GLUCOSE BY METER, Routine 11/05/2020 8:43 Result s for POCT PM ASSISTANT SURVEYOR this procedure are in the results section. GLUCOSE BY METER, Routine 11/05/2020 5:09 Result s for POCT PM ASSISTANT SURVEYOR this procedure are in the results section. GLUCOSE BY METER, Routine 11/05/2020 11:14 Result s for POCT AM ASSISTANT SURVEYOR this procedure are in the results section. VANCOMYCIN TROUGH Timed Routine 11/05/2020 10:29 Resul ts for AM ASSISTANT SURVEYOR this procedure are in the results section. GLUCOSE BY METER, Routine 11/05/2020 5:26 Result s for POCT AM ASSISTANT SURVEYOR this procedure are in the results section. LAB ONLY-COMPLETE Routine 11/05/2020 5:05 Result s for BLOOD COUNT WITH AM ASSISTANT SURVEYOR this proced ure DIFFERENTIAL are in the results section. PROTIME/INR Routine 11/05/2020 5:05 Results for AM ASSISTANT SURVEYOR this procedure are in the results section. MAGNESIUM Routine 11/05/2020 5:05 Results for AM ASSISTANT SURVEYOR this procedure are in the results section. RENAL FUNCTION PANEL Routine 11/05/2020 5:05 Res ults for AM ASSISTANT SURVEYOR this procedure are in the results section. LAB ONLY-COMPLETE Routine 11/05/2020 5:05 Result s for BLOOD COUNT WITH AM ASSISTANT SURVEYOR this proced ure DIFFERENTIAL are in the results section. GLUCOSE BY METER, Routine 11/04/2020 8:32 Result s for POCT PM ASSISTANT SURVEYOR this procedure are in the results section. GLUCOSE BY METER, Routine 11/04/2020 5:14 Result s for POCT PM ASSISTANT SURVEYOR this procedure are in the results section. IR PICC OR CENTRAL Routine 11/04/2020 3:28 Resul ts for LINE PLACEMENT PM ASSISTANT SURVEYOR this procedur e are in the results section. GLUCOSE BY METER, Routine 11/04/2020 11:16 Result s for POCT AM ASSISTANT SURVEYOR this procedure are in the results section. LAB ONLY-COMPLETE Routine 11/04/2020 6:00 Result s for BLOOD COUNT WITH AM ASSISTANT SURVEYOR this proced ure DIFFERENTIAL are in the results section. PROTIME/INR Routine 11/04/2020 6:00 Results for AM ASSISTANT SURVEYOR this procedure are in the results section. MAGNESIUM Routine 11/04/2020 6:00 Results for AM ASSISTANT SURVEYOR this procedure are in the results section. RENAL FUNCTION PANEL Routine 11/04/2020 6:00 Res ults for AM ASSISTANT SURVEYOR this procedure are in the results section. LAB ONLY-COMPLETE Routine 11/04/2020 6:00 Result s for BLOOD COUNT WITH AM ASSISTANT SURVEYOR this proced ure DIFFERENTIAL are in the results section. GLUCOSE BY METER, Routine 11/04/2020 5:34 Result s for POCT AM ASSISTANT SURVEYOR this procedure are in the results section. GLUCOSE BY METER, Routine 11/03/2020 9:53 Result s for POCT PM ASSISTANT SURVEYOR this procedure are in the results section. GLUCOSE BY METER, Routine 11/03/2020 5:17 Result s for POCT PM ASSISTANT SURVEYOR this procedure are in the results section. LAB ONLY-COMPLETE Routine 11/03/2020 2:41 Result s for BLOOD COUNT WITH PM ASSISTANT SURVEYOR this proced ure DIFFERENTIAL are in the results section. PROTIME/INR Routine 11/03/2020 2:41 Results for PM ASSISTANT SURVEYOR this procedure are in the results section. MAGNESIUM Routine 11/03/2020 2:41 Results for PM ASSISTANT SURVEYOR this procedure are in the results section. RENAL FUNCTION PANEL Routine 11/03/2020 2:41 Res ults for PM ASSISTANT SURVEYOR this procedure are in the results section. LAB ONLY-COMPLETE Routine 11/03/2020 2:41 Result s for BLOOD COUNT WITH PM ASSISTANT SURVEYOR this proced ure DIFFERENTIAL are in the results section. GLUCOSE BY METER, Routine 11/03/2020 11:36 Result s for POCT AM ASSISTANT SURVEYOR this procedure are in the results section. GLUCOSE BY METER, Routine 11/03/2020 5:07 Result s for POCT AM ASSISTANT SURVEYOR this procedure are in the results section. GLUCOSE BY METER, Routine 11/02/2020 10:07 Result s for POCT PM ASSISTANT SURVEYOR this procedure are in the results section. GLUCOSE BY METER, Routine 11/02/2020 4:54 Result s for POCT PM ASSISTANT SURVEYOR this procedure are in the results section. GLUCOSE BY METER, Routine 11/02/2020 10:53 Result s for POCT AM ASSISTANT SURVEYOR this procedure are in the results section. GLUCOSE BY METER, Routine 11/02/2020 6:18 Result s for POCT AM ASSISTANT SURVEYOR this procedure are in the results section. LAB ONLY-COMPLETE Routine 11/02/2020 6:06 Result s for BLOOD COUNT WITH AM ASSISTANT SURVEYOR this proced ure DIFFERENTIAL are in the results section. PROTIME/INR Routine 11/02/2020 6:06 Results for AM ASSISTANT SURVEYOR this procedure are in the results section. MAGNESIUM Routine 11/02/2020 6:06 Results for AM ASSISTANT SURVEYOR this procedure are in the results section. RENAL FUNCTION PANEL Routine 11/02/2020 6:06 Res ults for AM ASSISTANT SURVEYOR this procedure are in the results section. LAB ONLY-COMPLETE Routine 11/02/2020 6:06 Result s for BLOOD COUNT WITH AM ASSISTANT SURVEYOR this proced ure DIFFERENTIAL are in the results section. VANCOMYCIN RANDOM Timed Routine 11/02/2020 1:50 Resul ts for AM ASSISTANT SURVEYOR this procedure are in the results section. GLUCOSE BY METER, Routine 11/01/2020 10:25 Result s for POCT PM ASSISTANT SURVEYOR this procedure are in the results section. GLUCOSE BY METER, Routine 11/01/2020 5:32 Result s for POCT PM ASSISTANT SURVEYOR this procedure are in the results section. CLOSTRIDIUM Routine 11/01/2020 5:04 Results for DIFFICILE BY NAAT PM ASSISTANT SURVEYOR this proce dure (PCR/LAMP) are in the results section. GLUCOSE BY METER, Routine 11/01/2020 12:34 Result s for POCT PM ASSISTANT SURVEYOR this procedure are in the results section. LAB ONLY-MANUAL Routine 11/01/2020 5:43 Results for DIFFERENTIAL AM ASSISTANT SURVEYOR this procedure are in the results section. LAB ONLY-COMPLETE Routine 11/01/2020 5:43 Result s for BLOOD COUNT WITH AM ASSISTANT SURVEYOR this proced ure DIFFERENTIAL are in the results section. PROTIME/INR Routine 11/01/2020 5:43 Results for AM ASSISTANT SURVEYOR this procedure are in the results section. HEPATIC FUNCTION Routine 11/01/2020 5:43 Results for PANEL AM ASSISTANT SURVEYOR this procedure are in the results section. MAGNESIUM Routine 11/01/2020 5:43 Results for AM ASSISTANT SURVEYOR this procedure are in the results section. RENAL FUNCTION PANEL Routine 11/01/2020 5:43 Res ults for AM ASSISTANT SURVEYOR this procedure are in the results section. LAB ONLY-COMPLETE Routine 11/01/2020 5:43 Result s for BLOOD COUNT WITH AM ASSISTANT SURVEYOR this proced ure DIFFERENTIAL are in the results section. GLUCOSE BY METER, Routine 11/01/2020 5:42 Result s for POCT AM ASSISTANT SURVEYOR this procedure are in the results section. VANCOMYCIN RANDOM Timed Routine 10/31/2020 9:56 Resul ts for PM ASSISTANT SURVEYOR this procedure are in the results section. GLUCOSE BY METER, Routine 10/31/2020 6:54 Result s for POCT PM ASSISTANT SURVEYOR this procedure are in the results section. GLUCOSE BY METER, Routine 10/31/2020 12:03 Result s for POCT PM ASSISTANT SURVEYOR this procedure are in the results section. LAB ONLY-COMPLETE Routine 10/31/2020 5:16 Result s for BLOOD COUNT WITH AM ASSISTANT SURVEYOR this proced ure DIFFERENTIAL are in the results section. PROTIME/INR Routine 10/31/2020 5:16 Results for AM ASSISTANT SURVEYOR this procedure are in the results section. MAGNESIUM Routine 10/31/2020 5:16 Results for AM ASSISTANT SURVEYOR this procedure are in the results section. RENAL FUNCTION PANEL Routine 10/31/2020 5:16 Res ults for AM ASSISTANT SURVEYOR this procedure are in the results section. LAB ONLY-COMPLETE Routine 10/31/2020 5:16 Result s for BLOOD COUNT WITH AM ASSISTANT SURVEYOR this proced ure DIFFERENTIAL are in the results section. GLUCOSE BY METER, Routine 10/31/2020 5:01 Result s for POCT AM ASSISTANT SURVEYOR this procedure are in the results section. GLUCOSE BY METER, Routine 10/30/2020 9:09 Result s for POCT PM ASSISTANT SURVEYOR this procedure are in the results section. GLUCOSE BY METER, Routine 10/30/2020 6:17 Result s for POCT PM ASSISTANT SURVEYOR this procedure are in the results section. GLUCOSE BY METER, Routine 10/30/2020 11:27 Result s for POCT AM ASSISTANT SURVEYOR this procedure are in the results section. LAB ONLY-COMPLETE Routine 10/30/2020 6:35 Result s for BLOOD COUNT WITH AM ASSISTANT SURVEYOR this proced ure DIFFERENTIAL are in the results section. PROTIME/INR Routine 10/30/2020 6:35 Results for AM ASSISTANT SURVEYOR this procedure are in the results section. MAGNESIUM Routine 10/30/2020 6:35 Results for AM ASSISTANT SURVEYOR this procedure are in the results section. RENAL FUNCTION PANEL Routine 10/30/2020 6:35 Res ults for AM ASSISTANT SURVEYOR this procedure are in the results section. LAB ONLY-COMPLETE Routine 10/30/2020 6:35 Result s for BLOOD COUNT WITH AM ASSISTANT SURVEYOR this proced ure DIFFERENTIAL are in the results section. GLUCOSE BY METER, Routine 10/30/2020 5:22 Result s for POCT AM ASSISTANT SURVEYOR this procedure are in the results section. GLUCOSE BY METER, Routine 10/29/2020 9:26 Result s for POCT PM ASSISTANT SURVEYOR this procedure are in the results section. GLUCOSE BY METER, Routine 10/29/2020 5:39 Result s for POCT PM ASSISTANT SURVEYOR this procedure are in the results section. GLUCOSE BY METER, Routine 10/29/2020 11:41 Result s for POCT AM ASSISTANT SURVEYOR this procedure are in the results section. LAB ONLY-COMPLETE Routine 10/29/2020 6:27 Result s for BLOOD COUNT WITH AM ASSISTANT SURVEYOR this proced ure DIFFERENTIAL are in the results section. PROTIME/INR Routine 10/29/2020 6:27 Results for AM ASSISTANT SURVEYOR this procedure are in the results section. MAGNESIUM Routine 10/29/2020 6:27 Results for AM ASSISTANT SURVEYOR this procedure are in the results section. VANCOMYCIN TROUGH Timed Routine 10/29/2020 6:27 Resul ts for AM ASSISTANT SURVEYOR this procedure are in the results section. RENAL FUNCTION PANEL Routine 10/29/2020 6:27 Res ults for AM ASSISTANT SURVEYOR this procedure are in the results section. LAB ONLY-COMPLETE Routine 10/29/2020 6:27 Result s for BLOOD COUNT WITH AM ASSISTANT SURVEYOR this proced ure DIFFERENTIAL are in the results section. GLUCOSE BY METER, Routine 10/29/2020 5:48 Result s for POCT AM ASSISTANT SURVEYOR this procedure are in the results section. GLUCOSE BY METER, Routine 10/28/2020 10:09 Result s for POCT PM ASSISTANT SURVEYOR this procedure are in the results section. GLUCOSE BY METER, Routine 10/28/2020 5:49 Result s for POCT PM ASSISTANT SURVEYOR this procedure are in the results section. GLUCOSE BY METER, Routine 10/28/2020 11:54 Result s for POCT AM ASSISTANT SURVEYOR this procedure are in the results section. LAB ONLY-COMPLETE Routine 10/28/2020 9:46 Result s for BLOOD COUNT WITH AM ASSISTANT SURVEYOR this proced ure DIFFERENTIAL are in the results section. PROTIME/INR Routine 10/28/2020 9:46 Results for AM ASSISTANT SURVEYOR this procedure are in the results section. MAGNESIUM Routine 10/28/2020 9:46 Results for AM ASSISTANT SURVEYOR this procedure are in the results section. RENAL FUNCTION PANEL Routine 10/28/2020 9:46 Res ults for AM ASSISTANT SURVEYOR this procedure are in the results section. LAB ONLY-COMPLETE Routine 10/28/2020 9:46 Result s for BLOOD COUNT WITH AM ASSISTANT SURVEYOR this proced ure DIFFERENTIAL are in the results section. GLUCOSE BY METER, Routine 10/28/2020 5:14 Result s for POCT AM ASSISTANT SURVEYOR this procedure are in the results section. GLUCOSE BY METER, Routine 10/27/2020 9:47 Result s for POCT PM ASSISTANT SURVEYOR this procedure are in the results section. VANCOMYCIN RANDOM Timed Routine 10/27/2020 6:06 Resul ts for PM ASSISTANT SURVEYOR this procedure are in the results section. GLUCOSE BY METER, Routine 10/27/2020 5:39 Result s for POCT PM ASSISTANT SURVEYOR this procedure are in the results section. GLUCOSE BY METER, Routine 10/27/2020 11:05 Result s for POCT AM ASSISTANT SURVEYOR this procedure are in the results section. VANCOMYCIN RANDOM Timed Routine 10/27/2020 7:50 Resul ts for AM ASSISTANT SURVEYOR this procedure are in the results section. LAB ONLY-COMPLETE Routine 10/27/2020 6:17 Result s for BLOOD COUNT WITH AM ASSISTANT SURVEYOR this proced ure DIFFERENTIAL are in the results section. PROTIME/INR Routine 10/27/2020 6:17 Results for AM ASSISTANT SURVEYOR this procedure are in the results section. MAGNESIUM Routine 10/27/2020 6:17 Results for AM ASSISTANT SURVEYOR this procedure are in the results section. RENAL FUNCTION PANEL Routine 10/27/2020 6:17 Res ults for AM ASSISTANT SURVEYOR this procedure are in the results section. LAB ONLY-COMPLETE Routine 10/27/2020 6:17 Result s for BLOOD COUNT WITH AM ASSISTANT SURVEYOR this proced ure DIFFERENTIAL are in the results section. GLUCOSE BY METER, Routine 10/27/2020 5:21 Result s for POCT AM ASSISTANT SURVEYOR this procedure are in the results section. GLUCOSE BY METER, Routine 10/26/2020 4:43 Result s for POCT PM ASSISTANT SURVEYOR this procedure are in the results section. GLUCOSE BY METER, Routine 10/26/2020 11:30 Result s for POCT AM ASSISTANT SURVEYOR this procedure are in the results section. GLUCOSE BY METER, Routine 10/26/2020 5:35 Result s for POCT AM ASSISTANT SURVEYOR this procedure are in the results section. LAB ONLY-COMPLETE Routine 10/26/2020 4:25 Result s for BLOOD COUNT WITH AM ASSISTANT SURVEYOR this proced ure DIFFERENTIAL are in the results section. PROTIME/INR Routine 10/26/2020 4:25 Results for AM ASSISTANT SURVEYOR this procedure are in the results section. MAGNESIUM Routine 10/26/2020 4:25 Results for AM ASSISTANT SURVEYOR this procedure are in the results section. VANCOMYCIN TROUGH Timed Routine 10/26/2020 4:25 Resul ts for AM ASSISTANT SURVEYOR this procedure are in the results section. RENAL FUNCTION PANEL Routine 10/26/2020 4:25 Res ults for AM ASSISTANT SURVEYOR this procedure are in the results section. LAB ONLY-COMPLETE Routine 10/26/2020 4:25 Result s for BLOOD COUNT WITH AM ASSISTANT SURVEYOR this proced ure DIFFERENTIAL are in the results section. GLUCOSE BY METER, Routine 10/25/2020 8:43 Result s for POCT PM ASSISTANT SURVEYOR this procedure are in the results section. GLUCOSE BY METER, Routine 10/25/2020 5:26 Result s for POCT PM ASSISTANT SURVEYOR this procedure are in the results section. GLUCOSE BY METER, Routine 10/25/2020 11:26 Result s for POCT AM ASSISTANT SURVEYOR this procedure are in the results section. PROTIME/INR Routine 10/25/2020 7:08 Results for AM ASSISTANT SURVEYOR this procedure are in the results section. LAB ONLY-COMPLETE Routine 10/25/2020 7:07 Result s for BLOOD COUNT WITH AM ASSISTANT SURVEYOR this proced ure DIFFERENTIAL are in the results section. MAGNESIUM Routine 10/25/2020 7:07 Results for AM ASSISTANT SURVEYOR this procedure are in the results section. RENAL FUNCTION PANEL Routine 10/25/2020 7:07 Res ults for AM ASSISTANT SURVEYOR this procedure are in the results section. LAB ONLY-COMPLETE Routine 10/25/2020 7:07 Result s for BLOOD COUNT WITH AM ASSISTANT SURVEYOR this proced ure DIFFERENTIAL are in the results section. GLUCOSE BY METER, Routine 10/25/2020 5:02 Result s for POCT AM ASSISTANT SURVEYOR this procedure are in the results section. GLUCOSE BY METER, Routine 10/24/2020 8:14 Result s for POCT PM ASSISTANT SURVEYOR this procedure are in the results section. IR PICC OR CENTRAL Routine 10/24/2020 6:55 Resul ts for LINE REPOSITION PM ASSISTANT SURVEYOR this procedu re are in the results section. TISSUE EXAM Routine 10/24/2020 5:50 Osteomyelitis (HCC) Resu lts for PM ASSISTANT SURVEYOR this procedure are in the results section. CULTURE BACTERIAL, Routine 10/24/2020 5:39 Osteomyelitis (HCC ) Results for OTHER WITH GRAM PM ASSISTANT SURVEYOR this procedu re STAIN are in the results section. CULTURE BACTERIAL, Routine 10/24/2020 5:39 Osteomyelitis (HCC ) Results for ANAEROBE PM ASSISTANT SURVEYOR this procedure are in the results section. DEBRIDEMENT 10/24/2020 4:33 Osteomyelitis (HCC) PM ASSISTANT SURVEYOR TRANSFUSE FRESH Routine 10/24/2020 2:50 FROZEN PLASMA IN MLS PM ASSISTANT SURVEYOR PREPARE AND HOLD Timed Routine 10/24/2020 2:21 Result s for FRESH FROZEN PLASMA PM ASSISTANT SURVEYOR this pro cedure IN S- BLOOD BANK are in th e results section. PREPARE AND HOLD Timed Routine 10/24/2020 2:00 Result s for FRESH FROZEN PLASMA PM ASSISTANT SURVEYOR this pro cedure IN [facility]- BLOOD BANK are in th e results section. XRAY CHEST PORTABLE STAT 10/24/2020 1:14 Resu lts for PM ASSISTANT SURVEYOR this procedure are in the results section. GLUCOSE BY METER, Routine 10/24/2020 12:22 Result s for POCT PM ASSISTANT SURVEYOR this procedure are in the results section. GLUCOSE BY METER, Routine 10/24/2020 11:39 Result s for POCT AM ASSISTANT SURVEYOR this procedure are in the results section. GLUCOSE BY METER, Routine 10/24/2020 11:09 Result s for POCT AM ASSISTANT SURVEYOR this procedure are in the results section. LAB ONLY-COMPLETE Routine 10/24/2020 9:52 Result s for BLOOD COUNT WITH AM ASSISTANT SURVEYOR this proced ure DIFFERENTIAL are in the results section. PROTIME/INR Routine 10/24/2020 9:52 Results for AM ASSISTANT SURVEYOR this procedure are in the results section. MAGNESIUM Routine 10/24/2020 9:52 Results for AM ASSISTANT SURVEYOR this procedure are in the results section. RENAL FUNCTION PANEL Routine 10/24/2020 9:52 Res ults for AM ASSISTANT SURVEYOR this procedure are in the results section. LAB ONLY-COMPLETE Routine 10/24/2020 9:52 Result s for BLOOD COUNT WITH AM ASSISTANT SURVEYOR this proced ure DIFFERENTIAL are in the results section. GLUCOSE BY METER, Routine 10/24/2020 6:41 Result s for POCT AM ASSISTANT SURVEYOR this procedure are in the results section. GLUCOSE BY METER, Routine 10/23/2020 5:43 Result s for POCT PM ASSISTANT SURVEYOR this procedure are in the results section. GLUCOSE BY METER, Routine 10/23/2020 11:04 Result s for POCT AM ASSISTANT SURVEYOR this procedure are in the results section. GLUCOSE BY METER, Routine 10/23/2020 5:20 Result s for POCT AM ASSISTANT SURVEYOR this procedure are in the results section. LAB ONLY-COMPLETE Routine 10/23/2020 4:56 Result s for BLOOD COUNT WITH AM ASSISTANT SURVEYOR this proced ure DIFFERENTIAL are in the results section. PROTIME/INR Routine 10/23/2020 4:56 Results for AM ASSISTANT SURVEYOR this procedure are in the results section. MAGNESIUM Routine 10/23/2020 4:56 Results for AM ASSISTANT SURVEYOR this procedure are in the results section. VANCOMYCIN TROUGH Timed Routine 10/23/2020 4:56 Resul ts for AM ASSISTANT SURVEYOR this procedure are in the results section. RENAL FUNCTION PANEL Routine 10/23/2020 4:56 Res ults for AM ASSISTANT SURVEYOR this procedure are in the results section. LAB ONLY-COMPLETE Routine 10/23/2020 4:56 Result s for BLOOD COUNT WITH AM ASSISTANT SURVEYOR this proced ure DIFFERENTIAL are in the results section. GLUCOSE BY METER, Routine 10/22/2020 9:06 Result s for POCT PM ASSISTANT SURVEYOR this procedure are in the results section. GLUCOSE BY METER, Routine 10/22/2020 4:26 Result s for POCT PM ASSISTANT SURVEYOR this procedure are in the results section. GLUCOSE BY METER, Routine 10/22/2020 11:54 Result s for POCT AM ASSISTANT SURVEYOR this procedure are in the results section. LAB ONLY-COMPLETE Routine 10/22/2020 7:13 Result s for BLOOD COUNT WITH AM ASSISTANT SURVEYOR this proced ure DIFFERENTIAL are in the results section. PROTIME/INR Routine 10/22/2020 7:13 Results for AM ASSISTANT SURVEYOR this procedure are in the results section. MAGNESIUM Routine 10/22/2020 7:13 Results for AM ASSISTANT SURVEYOR this procedure are in the results section. RENAL FUNCTION PANEL Routine 10/22/2020 7:13 Res ults for AM ASSISTANT SURVEYOR this procedure are in the results section. LAB ONLY-COMPLETE Routine 10/22/2020 7:13 Result s for BLOOD COUNT WITH AM ASSISTANT SURVEYOR this proced ure DIFFERENTIAL are in the results section. GLUCOSE BY METER, Routine 10/22/2020 5:34 Result s for POCT AM ASSISTANT SURVEYOR this procedure are in the results section. GLUCOSE BY METER, Routine 10/21/2020 9:09 Result s for POCT PM ASSISTANT SURVEYOR this procedure are in the results section. GLUCOSE BY METER, Routine 10/21/2020 5:16 Result s for POCT PM ASSISTANT SURVEYOR this procedure are in the results section. XRAY CHEST PA AND Routine 10/21/2020 1:31 Result s for LATERAL PM ASSISTANT SURVEYOR this procedure are in the results section. GLUCOSE BY METER, Routine 10/21/2020 11:18 Result s for POCT AM ASSISTANT SURVEYOR this procedure are in the results section. LAB ONLY-COMPLETE Routine 10/21/2020 6:50 Result s for BLOOD COUNT WITH AM ASSISTANT SURVEYOR this proced ure DIFFERENTIAL are in the results section. PROTIME/INR Routine 10/21/2020 6:50 Results for AM ASSISTANT SURVEYOR this procedure are in the results section. ESR Routine 10/21/2020 6:50 Results for AM ASSISTANT SURVEYOR this procedure are in the results section. C-REACTIVE PROTEIN Routine 10/21/2020 6:50 Resul ts for (INFLAMMATION) AM ASSISTANT SURVEYOR this procedur e are in the results section. MAGNESIUM Routine 10/21/2020 6:50 Results for AM ASSISTANT SURVEYOR this procedure are in the results section. RENAL FUNCTION PANEL Routine 10/21/2020 6:50 Res ults for AM ASSISTANT SURVEYOR this procedure are in the results section. LAB ONLY-COMPLETE Routine 10/21/2020 6:50 Result s for BLOOD COUNT WITH AM ASSISTANT SURVEYOR this proced ure DIFFERENTIAL are in the results section. GLUCOSE BY METER, Routine 10/21/2020 6:05 Result s for POCT AM ASSISTANT SURVEYOR this procedure are in the results section. GLUCOSE BY METER, Routine 10/20/2020 8:52 Result s for POCT PM ASSISTANT SURVEYOR this procedure are in the results section. GLUCOSE BY METER, Routine 10/20/2020 5:02 Result s for POCT PM ASSISTANT SURVEYOR this procedure are in the results section. XRAY HAND MIN 3 Routine 10/20/2020 12:33 Results for VIEWS RT PM ASSISTANT SURVEYOR this procedure are in the results section. GLUCOSE BY METER, Routine 10/20/2020 11:59 Result s for POCT AM ASSISTANT SURVEYOR this procedure are in the results section. LAB ONLY-COMPLETE Routine 10/20/2020 7:09 Result s for BLOOD COUNT WITH AM ASSISTANT SURVEYOR this proced ure DIFFERENTIAL are in the results section. PROTIME/INR Routine 10/20/2020 7:09 Results for AM ASSISTANT SURVEYOR this procedure are in the results section. MAGNESIUM Routine 10/20/2020 7:09 Results for AM ASSISTANT SURVEYOR this procedure are in the results section. RENAL FUNCTION PANEL Routine 10/20/2020 7:09 Res ults for AM ASSISTANT SURVEYOR this procedure are in the results section. LAB ONLY-COMPLETE Routine 10/20/2020 7:09 Result s for BLOOD COUNT WITH AM ASSISTANT SURVEYOR this proced ure DIFFERENTIAL are in the results section. GLUCOSE BY METER, Routine 10/20/2020 5:53 Result s for POCT AM ASSISTANT SURVEYOR this procedure are in the results section. GLUCOSE BY METER, Routine 10/19/2020 9:06 Result s for POCT PM ASSISTANT SURVEYOR this procedure are in the results section. GLUCOSE BY METER, Routine 10/19/2020 5:44 Result s for POCT PM ASSISTANT SURVEYOR this procedure are in the results section. GLUCOSE BY METER, Routine 10/19/2020 5:23 Result s for POCT PM ASSISTANT SURVEYOR this procedure are in the results section. GLUCOSE BY METER, Routine 10/19/2020 11:55 Result s for POCT AM ASSISTANT SURVEYOR this procedure are in the results section. GLUCOSE BY METER, Routine 10/19/2020 5:42 Result s for POCT AM ASSISTANT SURVEYOR this procedure are in the results section. LAB ONLY-COMPLETE Routine 10/19/2020 5:30 Result s for BLOOD COUNT WITH AM ASSISTANT SURVEYOR this proced ure DIFFERENTIAL are in the results section. PROTIME/INR Routine 10/19/2020 5:30 Results for AM ASSISTANT SURVEYOR this procedure are in the results section. MAGNESIUM Routine 10/19/2020 5:30 Results for AM ASSISTANT SURVEYOR this procedure are in the results section. RENAL FUNCTION PANEL Routine 10/19/2020 5:30 Res ults for AM ASSISTANT SURVEYOR this procedure are in the results section. LAB ONLY-COMPLETE Routine 10/19/2020 5:30 Result s for BLOOD COUNT WITH AM ASSISTANT SURVEYOR this proced ure DIFFERENTIAL are in the results section. GLUCOSE BY METER, Routine 10/18/2020 9:34 Result s for POCT PM ASSISTANT SURVEYOR this procedure are in the results section. GLUCOSE BY METER, Routine 10/18/2020 5:18 Result s for POCT PM ASSISTANT SURVEYOR this procedure are in the results section. LAB ONLY-MANUAL Routine 10/18/2020 4:19 Results for DIFFERENTIAL PM ASSISTANT SURVEYOR this procedure are in the results section. LAB ONLY-COMPLETE [place] 10/18/2020 4:19 Result s for BLOOD COUNT WITH PM ASSISTANT SURVEYOR this proced ure DIFFERENTIAL are in the results section. PROTIME/INR [place] 10/18/2020 4:19 Results for PM ASSISTANT SURVEYOR this procedure are in the results section. PHOSPHORUS Routine 10/18/2020 4:19 Results for PM ASSISTANT SURVEYOR this procedure are in the results section. MAGNESIUM [place] 10/18/2020 4:19 Results for PM ASSISTANT SURVEYOR this procedure are in the results section. COMPREHENSIVE [place] 10/18/2020 4:19 Results fo r METABOLIC PANEL PM ASSISTANT SURVEYOR this procedu re are in the results section. LAB ONLY-COMPLETE [place] 10/18/2020 4:19 Result s for BLOOD COUNT WITH PM ASSISTANT SURVEYOR this proced ure DIFFERENTIAL are in the results section. documented in this encounter Results GLUCOSE BY METER, POCT (11/18/2020 11:29 AM CDT) Pathologist Sig nature Glucose POC 116 (H) 70 - 99 mg/dL [facility] Specimen Blood - Blood specimen (specimen) Performing Organization Address [facility] Phone Number [address] [address] GLUCOSE BY METER, POCT (11/18/2020 5:57 AM CDT) Pathologist Sig Recommend Glucose POC 169 (H) 70 - 99 mg/dL [facility] Specimen Blood - Blood specimen (specimen) Performing Organization Address [facility] Phone Number [address] [address] [phone] LAB ONLY-COMPLETE BLOOD COUNT WITH DIFFERENTIAL (11/18/2020 5:49 AM CDT) Pathologist Sig formerly [facility] WBC 2.6 (L) 4.0 - 11.0 K/uL [facility] RBC 3.03 (L) 3.80 - 5.30 [facility] M/uL CLINIC Hemoglobin 9.3 (L) 11.5 - 15.8 [facility] g/dL [facility] Hematocrit 28.3 (L) 35.0 - 45.0 % [facility] MCV 93.4 80.0 - 98.[address] [facility] MCH 30.7 25.5 - 34.[address] [facility] MCHC 32.9 31.5 - 36.5 [facility] g/dL [facility] RDW-CV 22.1 (H) 11.5 - 15.5 % [facility] RDW-SD 74.5 (H) 35.5 - 50.[address] [facility] Platelet Count 65 (L) 140 - 400 K/uL [facility] MPV 12.6 (H) 8.5 - 12.[address] [facility] Seg Neut Absolute 1.8 1.8 - 8.0 K/uL [facility] Lymphocytes Absolute 0.3 (L) 0.8 - 4.1 K/uL [facility] Monocytes Absolute 0.5 0.0 - 1.0 K/uL [facility] Eosinophils Absolute 0.0 0.0 - 0.7 K/uL [facility] Basophil Absolute 0.0 0.0 - 0.2 K/uL [facility] Immature Granulocyte 0.02 0.00 - 0.06 [facility] Absolute K/uL CLINIC Neutrophils Abs. 1,800 /uL [facility] (Segs and Bands) [facility] Neutrophils Percent 68.6 % [facility] Lymphocytes Percent 10.2 % [facility] Monocytes Percent 18.4 % [facility] Immature Granulocyte 0.8 % [facility] Percent CLINIC Eosinophils Percent 1.6 % [facility] Basophil Percent 0.4 % [facility] Nucleated RBC 0 /[address] [facility] Specimen Blood - Blood specimen (specimen) Performing Organization Address City/State/Zipcode Phone Number [address] [address] RENAL FUNCTION PANEL (11/18/2020 5:49 AM CDT) Pathologist Sig nature Glucose 217 (H) 70 - 100 mg/dL [facility] BUN 12 6 - 22 mg/dL [facility] Creatinine 0.71 0.60 - 1.10 [facility] mg/dL [facility] BUN/Creatinine Ratio 16.9 10.0 - 25.[address] [facility] Sodium 141 135 - 145 meq/L [facility] Potassium 3.9 3.5 - 5.3 meq/L [facility] Chloride 116 (H) 99 - 110 meq/L [facility] CO2 18 (L) 20 - 29 meq/L [facility] Anion Gap with K 11 6 - 20 meq/L [facility] Calcium 6.6 (L) 8.5 - 10.5 mg/dL [facility] Phosphorus 3.7 2.5 - 4.5 mg/dL [facility] Albumin 1.7 (L) 3.5 - 5.0 g/dL [facility] Corrected Calcium 8.4 (L) 8.5 - 10.5 mg/dL [facility] Age [address] [facility] eGFR Non- 79 >=60 [facility] [place] mL/min/1.73m2 CLINIC eGFR >90 >=60 [facility] mL/min/1.73m2 CLINIC Specimen Blood - Blood specimen (specimen) Performing Organization Address [facility] Phone Number [address] [address] [phone] PROTIME/INR (11/18/2020 5:49 AM CDT) Pathologist Sig nature Protime 29.3 (H) 12.0 - 14.[address] [facility] INR 2.8 2.0 - 3.[address] [facility] Specimen Blood - Blood specimen (specimen) Narrative Performed At Normal INR reference range (patients not on oral [facility] anticoagulants) 0.9-1.1. INR Standard Intensity = (2.0 - 3.0) INR Higher Intensity = (2.5 - 3.5) Performing Organization Address [facility] Number [address] [address] MAGNESIUM (11/18/2020 5:49 AM CDT) Pathologist Sig nature Magnesium 1.5 (L) 1.8 - 2.4 mg/dL [facility] Specimen Blood - Blood specimen (specimen) Performing Organization Address [facility] Number [address] [address] GLUCOSE BY METER, POCT (11/17/2020 9:39 PM CDT) Pathologist Sig nature Glucose POC 231 (H) 70 - 99 mg/dL [facility] Specimen Blood - Blood specimen (specimen) Performing Organization Address [facility] Phone Number [address] [address] [phone] GLUCOSE BY METER, POCT (11/17/2020 5:16 PM CDT) Pathologist Sig nature Glucose POC 194 (H) 70 - 99 mg/dL [facility] Specimen Blood - Blood specimen (specimen) Performing Organization Address City/State/Zipcode Phone Number [facility] [address] [place] [address] SARS-COV-2, INFLUENZA A+B, AND/OR RSV NUCLEIC ACID TESTING PANEL (11/17/2020 1:39 PM CDT) Pathologist Sig nature SARS-CoV-2 Not Detected Not Detected [facility] Specimen Respiratory - Entire nasopharynx (body s tructure) Narrative Performed At Please read entire report. Results for Influenza A and B or [facility] RSV may also be available depending on which viruses y our provider selected for testing. Your Covid-19 test is negative: 1)Avoiding close contact is s till recommended. 2)Cover your coughs and snee zes. 3)Wash your hands often with soap and wate r for at least 20 seconds or use an alcohol-based solar energy system installer containing over 60% alcohol. Avoid touch ing your face. 4)Avoid sharing personal household items, including dishes, cups, utensils, towels, clothing, or bedding. These items should be cleaned thoroughly with soap and water after use. Clean all "high touch" surfaces i n your home daily. 5) Monitor your symptoms. Contact your provider if you are feeling worse. If you have shortness of breath or difficulty breathing, call [phone]. This assay is for in vitro diagnostic use under FDA Em ergency Use Authorization only. Optimal performance of this test requires appropriate specimen collection, storage, and transp ort to the test site. Detection of SARS-CoV-2 RNA may be affected by sample collection methods, patient factors (eg, presence of symptoms), and/or stage of infection. False-negative results may arise from degradation of v iral RNA during shipping/storage. Results should be interpreted by a trained professiona l in conjunction with the patient s history and clinical signs and symptoms, and epidemiological risk factors. Negative (Not Detected) results do not preclude infect ion with the SARS-CoV-2 virus and should not be the sole b asis of patient treatment/management or public health decision . Follow up testing should be performed according to the current CDC recommendations. This test was performed by polymerase chain reaction ( PCR) on the GeneXpert instrument. Performing Organization Address City/State/Zipcode Phone Number [facility] [address] [place] [address] GLUCOSE BY METER, POCT (11/17/2020 10:59 AM CDT) Pathologist Sig parker Glucose POC 103 (H) 70 - 99 mg/dL [facility] Specimen Blood - Blood specimen (specimen) Performing Organization Address City/State/Zipcode Phone Number [facility] [address] [place] [address] LAB ONLY-COMPLETE BLOOD COUNT WITH DIFFERENTIAL (11/17/2020 10:50 AM CDT) Pathologist Sig parker WBC 2.8 (L) 4.0 - 11.0 K/uL [facility] RBC 2.96 (L) 3.80 - 5.30 [facility] M/uL [facility] Hemoglobin 9.0 (L) 11.5 - 15.8 [facility] g/dL [facility] Hematocrit 27.2 (L) 35.0 - 45.0 % [facility] MCV 91.9 80.0 - 98.[address] [facility] MCH 30.4 25.5 - 34.[address] [facility] MCHC 33.1 31.5 - 36.5 [facility] g/dL [facility] RDW-CV 21.9 (H) 11.5 - 15.5 % [facility] RDW-SD 71.8 (H) 35.5 - 50.[address] [facility] Platelet Count 60 (L) 140 - 400 K/uL [facility] MPV 12.1 (H) 8.5 - 12.[address] [facility] Seg Neut Absolute 2.0 1.8 - 8.0 K/uL [facility] Lymphocytes Absolute 0.2 (L) 0.8 - 4.1 K/uL [facility] Monocytes Absolute 0.6 0.0 - 1.0 K/uL [facility] Eosinophils Absolute 0.1 0.0 - 0.7 K/uL [facility] Basophil Absolute 0.0 0.0 - 0.2 K/uL [facility] Immature Granulocyte 0.02 0.00 - 0.06 [facility] Absolute K/uL CLINIC Neutrophils Abs. 2,000 /uL [facility] (Segs and Bands) [facility] Neutrophils Percent 69.3 % [facility] Lymphocytes Percent 6.7 % [facility] Monocytes Percent 20.8 % [facility] Immature Granulocyte 0.7 % [facility] Percent CLINIC Eosinophils Percent 2.1 % [facility] Basophil Percent 0.4 % [facility] Nucleated RBC 0 /[address] [facility] Specimen Blood - Blood specimen (specimen) Performing Organization Address [facility] Phone Number [address] [address] [phone] RENAL FUNCTION PANEL (11/17/2020 10:50 AM CDT) Pathologist Sig nature Glucose 123 (H) 70 - 100 mg/dL [facility] BUN 10 6 - 22 mg/dL [facility] Creatinine 0.66 0.60 - 1.10 [facility] mg/dL [facility] BUN/Creatinine Ratio 15.2 10.0 - 25.[address] [facility] Sodium 139 135 - 145 meq/L [facility] Potassium 4.4 3.5 - 5.3 meq/L [facility] Chloride 118 (H) 99 - 110 meq/L [facility] CO2 19 (L) 20 - 29 meq/L [facility] Anion Gap with K 6 6 - 20 meq/L [facility] Calcium 6.9 (L) 8.5 - 10.5 mg/dL [facility] Phosphorus 2.0 (L) 2.5 - 4.5 mg/dL [facility] Albumin 1.7 (L) 3.5 - 5.0 g/dL [facility] Corrected Calcium 8.7 8.5 - 10.5 mg/dL [facility] Age [address] [facility] eGFR Non- 86 >=60 [facility] Guamanian mL/min/1.73m2 CLINIC eGFR >90 >=60 [facility] mL/min/1.73m2 CLINIC Specimen Blood - Blood specimen (specimen) Performing Organization Address City/[facility] Phone Number [address] [address] [phone] PROTIME/INR (11/17/2020 10:50 AM CDT) Pathologist Sig nature Protime 32.4 (H) 12.0 - 14.[address] [facility] INR 3.2 2.0 - 3.[address] [facility] Specimen Blood - Blood specimen (specimen) Narrative Performed At Normal INR reference range (patients not on oral [facility] anticoagulants) 0.9-1.1. INR Standard Intensity = (2.0 - 3.0) INR Higher Intensity = (2.5 - 3.5) Performing Organization Address [facility]/[address] [address] MAGNESIUM (11/17/2020 10:50 AM CDT) Pathologist Sig nature Magnesium 2.0 1.8 - 2.4 mg/dL [facility] Specimen Blood - Blood specimen (specimen) Performing Organization Address [address] [address] GLUCOSE BY METER, POCT (11/17/2020 5:01 AM CDT) Pathologist Sig nature Glucose POC 163 (H) 70 - 99 mg/dL [facility] Specimen Blood - Blood specimen (specimen) Performing Organization Address [address] [address] GLUCOSE BY METER, POCT (11/16/2020 8:42 PM CDT) Pathologist Sig nature Glucose POC 163 (H) 70 - 99 mg/dL [facility] Specimen Blood - Blood specimen (specimen) Performing Organization Address [address] [address] GLUCOSE BY METER, POCT (11/16/2020 6:18 PM CDT) Pathologist Sig nature Glucose POC 79 70 - 99 mg/dL [facility] Specimen Blood - Blood specimen (specimen) Performing Organization Address [address] [address] GLUCOSE BY METER, POCT (11/16/2020 5:34 PM CDT) Pathologist Sig nature Glucose POC 65 (L) 70 - 99 mg/dL [facility] Specimen Blood - Blood specimen (specimen) Performing Organization Address [facility] Number [address] [address] GLUCOSE BY METER, POCT (11/16/2020 5:10 PM CDT) Pathologist Sig nature Glucose POC 60 (LL) 70 - 99 mg/dL [facility] Specimen Blood - Blood specimen (specimen) Performing Organization Address [facility] Number [address] [address] VANCOMYCIN TROUGH (11/16/2020 12:11 PM CDT) Pathologist Sig nature Vancomycin Trough 18.3 10.0 - 20.0 ug/mL [facility] Specimen Blood - Blood specimen (specimen) Performing Organization Address [address] [address] GLUCOSE BY METER, POCT (11/16/2020 12:01 PM CDT) Pathologist Sig nature Glucose POC 89 70 - 99 mg/dL [facility] Specimen Blood - Blood specimen (specimen) Performing Organization Address [address] [address] [phone] GLUCOSE BY METER, POCT (11/16/2020 11:00 AM CDT) Pathologist Sig nature Glucose POC 63 (L) 70 - 99 mg/dL [facility] Specimen Blood - Blood specimen (specimen) Performing Organization Address [facility] Number [address] [address] [phone] LAB ONLY-COMPLETE BLOOD COUNT WITH DIFFERENTIAL (11/16/2020 6:47 AM CDT) Pathologist Sig nature WBC 2.4 (L) 4.0 - 11.0 K/uL [facility] RBC 3.00 (L) 3.80 - 5.30 [facility] M/uL [facility] Hemoglobin 8.8 (L) 11.5 - 15.8 [facility] g/dL [facility] Hematocrit 27.7 (L) 35.0 - 45.0 % [facility] MCV 92.3 80.0 - 98.[address] [facility] MCH 29.3 25.5 - 34.[address] [facility] MCHC 31.8 31.5 - 36.5 [facility] g/dL [facility] RDW-CV 21.8 (H) 11.5 - 15.5 % [facility] RDW-SD 72.2 (H) 35.5 - 50.[address] [facility] Platelet Count 64 (L) 140 - 400 K/uL [facility] MPV 12.3 (H) 8.5 - 12.[address] [facility] Seg Neut Absolute 1.6 (L) 1.8 - 8.0 K/uL [facility] Lymphocytes Absolute 0.5 (L) 0.8 - 4.1 K/uL [facility] Monocytes Absolute 0.3 0.0 - 1.0 K/uL [facility] Eosinophils Absolute 0.0 0.0 - 0.7 K/uL [facility] Basophil Absolute 0.0 0.0 - 0.2 K/uL [facility] Immature Granulocyte 0.03 0.00 - 0.06 [facility] Absolute K/uL [facility] Neutrophils Abs. 1,600 /uL [facility] (Segs and Bands) [facility] Neutrophils Percent 65.7 % [facility] Lymphocytes Percent 19.5 % [facility] Monocytes Percent 11.4 % [facility] Immature Granulocyte 1.3 % [facility] Percent CLINIC Eosinophils Percent 1.7 % [facility] Basophil Percent 0.4 % [facility] Nucleated RBC 0 /[address] [facility] Specimen Blood - Blood specimen (specimen) Performing Organization Address City/State/Zipcode Phone Number [facility] [address] [place] [address] RENAL FUNCTION PANEL (11/16/2020 6:47 AM CDT) Pathologist Sig nature Glucose 183 (H) 70 - 100 mg/dL [facility] BUN 11 6 - 22 mg/dL [facility] Creatinine 0.70 0.60 - 1.10 [facility] mg/dL [facility] BUN/Creatinine Ratio 15.7 10.0 - 25.[address] [facility] Sodium 141 135 - 145 meq/L [facility] Potassium 3.8 3.5 - 5.3 meq/L [facility] Chloride 119 (H) 99 - 110 meq/L [facility] CO2 18 (L) 20 - 29 meq/L [facility] Anion Gap with K 8 6 - 20 meq/L [facility] Calcium 6.9 (L) 8.5 - 10.5 mg/dL [facility] Phosphorus 4.0 2.5 - 4.5 mg/dL [facility] Albumin 1.7 (L) 3.5 - 5.0 g/dL [facility] Corrected Calcium 8.7 8.5 - 10.5 mg/dL [facility] Age [address] [facility] eGFR Non- 80 >=60 [facility] [place]ian mL/min/1.73m2 [facility] eGFR >90 >=60 [facility] mL/min/1.73m2 [facility] Specimen Blood - Blood specimen (specimen) Performing Organization Address [facility] Phone Number [address] [address] PROTIME/INR (11/16/2020 6:47 AM CDT) Pathologist Sig nature Protime 29.0 (H) 12.0 - 14.[address] [facility] INR 2.8 2.0 - 3.[address] [facility] Specimen Blood - Blood specimen (specimen) Narrative Performed At Normal INR reference range (patients not on oral [facility] anticoagulants) 0.9-1.1. INR Standard Intensity = (2.0 - 3.0) INR Higher Intensity = (2.5 - 3.5) Performing Organization Address [facility] Phone Number [address] [phone] MAGNESIUM (11/16/2020 6:47 AM CDT) Pathologist Sig nature Magnesium 1.3 (L) 1.8 - 2.4 mg/dL [facility] Specimen Blood - Blood specimen (specimen) Performing Organization Address [facility] Phone Number [address] [address] GLUCOSE BY METER, POCT (11/16/2020 5:41 AM CDT) Pathologist Sig nature Glucose POC 169 (H) 70 - 99 mg/dL [facility] Specimen Blood - Blood specimen (specimen) Performing Organization Address [facility] Phone Number [address] [address] GLUCOSE BY METER, POCT (11/15/2020 8:51 PM CDT) Pathologist Sig nature Glucose POC 239 (H) 70 - 99 mg/dL [facility] Specimen Blood - Blood specimen (specimen) Performing Organization Address [facility] Phone Number [address] [address] [phone] GLUCOSE BY METER, POCT (11/15/2020 5:52 PM CDT) Pathologist Sig nature Glucose POC 159 (H) 70 - 99 mg/dL [facility] Specimen Blood - Blood specimen (specimen) Performing Organization Address [facility] Phone Number [address] [address] GLUCOSE BY METER, POCT (11/15/2020 12:11 PM CDT) Pathologist Sig nature Glucose POC 96 70 - 99 mg/dL [facility] Specimen Blood - Blood specimen (specimen) Performing Organization Address [facility] Phone Number [address] [address] LAB ONLY-COMPLETE BLOOD COUNT WITH DIFFERENTIAL (11/15/2020 5:46 AM CDT) Pathologist Sig nature WBC 2.4 (L) 4.0 - 11.0 K/uL [facility] RBC 3.33 (L) 3.80 - 5.30 [facility] M/uL [facility] Hemoglobin 10.0 (L) 11.5 - 15.8 [facility] g/dL [facility] Hematocrit 30.9 (L) 35.0 - 45.0 % [facility] MCV 92.8 80.0 - 98.[address] [facility] MCH 30.0 25.5 - 34.[address] [facility] MCHC 32.4 31.5 - 36.5 [facility] g/dL [facility] RDW-CV 21.6 (H) 11.5 - 15.5 % [facility] RDW-SD 72.1 (H) 35.5 - 50.[address] [facility] Platelet Count 76 (L) 140 - 400 K/uL [facility] MPV 13.2 (H) 8.5 - 12.[address] [facility] Seg Neut Absolute 1.5 (L) 1.8 - 8.0 K/uL [facility] Lymphocytes Absolute 0.4 (L) 0.8 - 4.1 K/uL [facility] Monocytes Absolute 0.4 0.0 - 1.0 K/uL [facility] Eosinophils Absolute 0.1 0.0 - 0.7 K/uL [facility] Basophil Absolute 0.0 0.0 - 0.2 K/uL [facility] Immature Granulocyte 0.02 0.00 - 0.06 [facility] Absolute K/uL [facility] Neutrophils Abs. 1,500 /uL [facility] (Segs and Bands) [facility] Neutrophils Percent 64.8 % [facility] Lymphocytes Percent 16.4 % [facility] Monocytes Percent 15.5 % [facility] Immature Granulocyte 0.8 % [facility] Percent CLINIC Eosinophils Percent 2.1 % [facility] Basophil Percent 0.4 % [facility] Nucleated RBC 0 /[address] [facility] Specimen Blood - Blood specimen (specimen) Performing Organization Address City/State/Zipcode Phone Number [address] [address] RENAL FUNCTION PANEL (11/15/2020 5:46 AM CDT) Pathologist Sig nature Glucose 265 (H) 70 - 100 mg/dL [facility] BUN 12 6 - 22 mg/dL [facility] Creatinine 0.77 0.60 - 1.10 [facility] mg/dL [facility] BUN/Creatinine Ratio 15.6 10.0 - 25.[address] [facility] Sodium 139 135 - 145 meq/L [facility] Potassium 4.2 3.5 - 5.3 meq/L [facility] Chloride 118 (H) 99 - 110 meq/L [facility] CO2 18 (L) 20 - 29 meq/L [facility] Anion Gap with K 7 6 - 20 meq/L [facility] Calcium 7.4 (L) 8.5 - 10.5 mg/dL [facility] Phosphorus 1.9 (L) 2.5 - 4.5 mg/dL [facility] Albumin 1.9 (L) 3.5 - 5.0 g/dL [facility] Corrected Calcium 9.1 8.5 - 10.5 mg/dL [facility] Age [address] [facility] eGFR Non- 72 >=60 [facility] [place]ian mL/min/1.73m2 [facility] eGFR 87 >=60 [facility] mL/min/1.73m2 [facility] Specimen Blood - Blood specimen (specimen) Performing Organization Address [facility] Phone Number [address] [address] PROTIME/INR (11/15/2020 5:46 AM CDT) Pathologist Sig nature Protime 24.9 (H) 12.0 - 14.[address] [facility] INR 2.3 2.0 - 3.[address] [facility] Specimen Blood - Blood specimen (specimen) Narrative Performed At Normal INR reference range (patients not on oral [facility] anticoagulants) 0.9-1.1. INR Standard Intensity = (2.0 - 3.0) INR Higher Intensity = (2.5 - 3.5) Performing Organization Address [facility] Number [address] [address] MAGNESIUM (11/15/2020 5:46 AM CDT) Pathologist Sig nature Magnesium 1.8 1.8 - 2.4 mg/dL [facility] Specimen Blood - Blood specimen (specimen) Performing Organization Address [facility] Number [address] [address] GLUCOSE BY METER, POCT (11/15/2020 5:31 AM CDT) Pathologist Sig nature Glucose POC 217 (H) 70 - 99 mg/dL [facility] Specimen Blood - Blood specimen (specimen) Performing Organization Address [facility] Phone Number [address] [address] GLUCOSE BY METER, POCT (11/14/2020 9:35 PM CDT) Pathologist Sig nature Glucose POC 248 (H) 70 - 99 mg/dL [facility] Specimen Blood - Blood specimen (specimen) Performing Organization Address [facility]/Zip[facility] Phone Number [address] [address] [phone] GLUCOSE BY METER, POCT (11/14/2020 5:26 PM CDT) Pathologist Sig nature Glucose POC 79 70 - 99 mg/dL [facility] Specimen Blood - Blood specimen (specimen) Performing Organization Address [facility] Phone Number [address] [address] IR PICC OR CENTRAL LINE REMOVAL (11/14/2020 4:59 PM CDT) Specimen Narrative Performed At [facility] Patient Name: BLAIR STAFFORD Date of : 1940 Procedure: IR PICC OR CENTRAL LINE CAROL CRISTINA Date of Service: 11/14/2020 EXAM: SUPERIOR VENACAVOGRAM, LEFT BRACHIOCEPHALIC VENO GRAM, RECANALIZATION OF OCCLUDED SUPERIOR VENA CAVA WITH BAL LOON ANGIOPLASTY, TUNNELED CENTRAL VENOUS CATHETER PLACEME NT; REMOVAL OF LEFT ARM PICC INDICATION:Left upper extremity DVT status post left a rm PICC placement. Known SVC high-grade stenosis/occlusion. Bilateral upp er extremity swelling. Needs venous access for chemot herapy. SEDATION: Moderate IV sedation was used. Please see immediate post-operative/post-procedural note. TECHNIQUE: Informed consent was obtained. Patient pl aced supine position on the fluoroscopy table. Prior to the proced ure, ultrasound was performed identifying a patent right internal jugu lar vein. Image was recorded. Skin over the right neck and upper chest was prepped and draped in usual sterile fashion and the skin infiltrat ed with lidocaine. Using real-time ultrasound guidance, the right interna l jugular vein was accessed with a 21-gauge needle. 0.018-in guidewire wa s placed followed by a transitional catheter. With the transitional cath eter positioned in the lower right internal jugular vein, contrast inject ed and multiple DSA images obtained. This demonstrated occlusion of th e proximal superior vena cava with extensive collateral vein form ation, as previously demonstrated. Left arm PICC tip was positio dexter within the right brachycephalic vein, as previously demonstrated. 0.035-in guidewire was placed. Subsequently, a 6 Guinean sheath was placed. Catheter was manipulated into the left brachiocephalic vein. The catheter tip positioned in the left brachiocephalic ve in, contrast injected and multiple DSA images obtained. Using angle d catheter and 0.035-in Glidewire under fluoroscopic guidance, the martinez perior vena cava was recanalized. Contrast injection under fluoroscopy confirmed placement within the superior vena cava. Guidewire was advanced into the inferior vena cava under fluoroscopic guidance. The oc cluded segment was then dilated with an 8 mm x 4 cm balloon. Repeat venog main performed demonstrating no significant improvement in flow. Prol onged inflation performed with the 8 mm x 4 cm balloon demonstrating s ome improvement in flow. Subsequent dilation with a 10 mm x 4 cm balloon with significant improvement in flow, though significant residual steno sis. Patient did have discomfort with dilation with a 10 mm balloon, th erefore no further angioplasty performed. Lidocaine was administered in t he right subclavicular region and a short transverse incision m joseph. The 6 Guinean dual lumen powerline tunneled central venous catheter was then tunneled to the internal jugular access site and cut to the brian ropriate length. The sheath was exchanged for a peel-away sheath over t he guidewire after placement of an 0.018-in guidewire. The tunneled centr al venous catheter was then placed through the peel-away sheath and posit ioned at the cavoatrial junction. Final fluoroscopic image obtained . The catheter aspirated and flushed easily through both lumens. Derm abond placed at the venotomy site. The catheter was secured to skin wi th 2-0 silk suture. Sterile dressing applied. Left arm PICC was th en removed. Manual compression used hemostasis. Sterile dressing applied. Final fluoroscopic image obtained. ESTIMATED BLOOD LOSS: Less than 25 mL. CONDITION: Stable FINDINGS: Ultrasound demonstrates patency of the right internal jugular vein. Initial superior venacavogram demonstrates occlu kirby of the proximal superior vena cava with extensive collateral vein formation. Indwelling left arm PICC tip seen within the right bra chiocephalic vein, as previously intended. Left brachiocephalic venogram demonstrates patency of the left brachiocephalic vein with known th rombus within the left subclavian vein. After recanalization and crossin g of the SVC occlusion, patency is seen of the distal superior vena cava. Fluoroscopic images document venoplasty of the superio r vena cava with improved flow, though residual stenosis, post interven tion. Final fluoroscopic image demonstrates the tunneled central v enous catheter tip positioned at the cavoatrial junction. IMPRESSION: 1. 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 2. Successful recanalization and balloon venoplasty of the superior vena cava with improved flow. This was r esistant to venoplasty. 3. Successful tunneled Powerline central venous cath eter placement with catheter tip positioned at the cavo atrial junction. 4. Removal of left arm PICC. 5. Superior vena cava was resistant to venoplasty an d will be at high risk for restenosis/occlusion. Finalized by: Compa Medrano MD on 021 8:01 AM CDT Patient/Procedure Information: [facility] MRN/LETA: [id number] Order Number: [id number] Accession Number: [id number] Ordering Provider: GERTRUDE THOMAS Authorizing Provider: GERTRUDE THOMAS Procedure Note Interface, Radiantres - 11/15/2020 8:03 AM CDT Patient Name: BLAIR STAFFORD Date of : 1940 Procedure: IR PICC OR CENTRAL LINE CAROL CRISTINA Date of Service: 11/14/2020 EXAM: SUPERIOR VENACAVOGRAM, LEFT BRACHI OCEPHALIC VENOGRAM, RECANALIZATION OF OCCLUDED SUPERIOR VENA CAVA WITH BALLOON ANGIOPLASTY, TUNNELED CENTRAL VENOUS CATHETER PLACEMENT; REMOVAL OF LEFT ARM PICC INDICATION:Left upper extremity DVT stat us post left arm PICC placement. Known SVC high-grade stenosis/occlusion. Bilateral upper extremity swelling. Needs venous access for chemotherapy. SEDATION: Moderate IV sedation was used. Please see immediate post-operative/post-procedural note. TECHNIQUE: Informed consent was obtaine d. Patient placed supine position on the fluoroscopy table. Prior to the procedure, ultrasound was performed identifying a patent right internal jugular vein. Image was recorded. Skin over the right neck and upper chest was prepped and draped in usual sterile fashion and the skin infiltrated with lidocaine. Using real-time ultrasound guidance, the right internal jugular vein was accessed with a 21-gauge needle. 0.018-in guidewire was placed followed by a transitional catheter. With the transitional catheter positioned in the lower right internal jugular vein, contrast injected and multiple DSA images obtained. This demonstrated occlusion of the proxi mal superior vena cava with extensive collateral vein formation, as previously demonstrated. Left arm PICC tip was positioned within the right brachycephalic vein, as previously demonstrated. 0.035-in guidew melanie was placed. Subsequently, a 6 Guinean sheath was placed. Catheter was manipulated into the left brachiocephalic vein. The catheter tip positioned in the left brachiocephalic vein, contrast injected and multiple DSA images obtained. Using angled catheter and 0.035-in Glidewire under fluoroscopic guidance, the superior vena cava was recanalized. Contrast injection under fluoroscopy confirmed placement within t he superior vena cava. Guidewire was advanced into the inferior vena cava under fluoroscopic guidance. The occluded segment was then dilated with an 8 mm x 4 cm balloon. Repeat venography performed demonstrating no si gnificant improvement in flow. Prolonged inflation performed with the 8 mm x 4 cm balloon demonstrating some improvement in flow. Subsequent dilation with a 10 mm x 4 cm balloon with significant improvement in flow, th ough significant residual stenosis. Patient did have discomfort with dilation with a 10 mm balloon, therefore no further angioplasty performed. Lidocaine was administered in the right subclavicular region and a coty rt transverse incision made. The 6 Guinean dual lumen powerline tunneled central venous catheter was then tunneled to the internal jugular access site and cut to the appropriate length. The sheath was exchanged for a p eel-away sheath over the guidewire after placement of an 0.018-in guidewire. The tunneled central venous catheter was then placed through the peel-away sheath and positioned at the cavoatrial junction. Final fluorosco pic image obtained. The catheter aspirated and flushed easily through both lumens. Dermabond placed at the venotomy site. The catheter was secured to skin with 2-0 silk suture. Sterile dressing applied. Left arm PICC was then removed. Manual compression used hemostasis. Sterile dressing applied. Final fluoroscopic image obtained. ESTIMATED BLOOD LOSS: Less than 25 mL. CONDITION: Stable FINDINGS: Ultrasound demonstrates patenc y of the right internal jugular vein. Initial superior venacavogram demonstrates occlusion of the proximal superior vena cava with extensive collateral vein formation. Indwelling left arm PICC tip seen within the right brachiocephalic vein, as previously intended. Left brachiocephalic venogram demonstrates patency of the left brachiocephalic vein with known thrombus within the left subclavian vein. After recanalization an d crossing of the SVC occlusion, patency is seen of the distal superior vena cava. Fluoroscopic images document venoplasty of the superior vena cava with improved flow, though residual stenosis, post intervention. Fi nal fluoroscopic image demonstrates the tunneled central venous catheter tip positioned at the cavoatrial junction. IMPRESSION: 1. Chronically occluded superior vena c amanda with extensive collateral vein formation. Known left subclavian vein thrombosis. 2. Successful recanalization and balloo n venoplasty of the superior vena cava with improved flow. This was resistant to venoplasty. 3. Successful tunneled Powerline centra l venous catheter placement with catheter tip positioned at the cavoatrial junction. 4. Removal of left arm PICC. 5. Superior vena cava was resistant to venoplasty and will be at high risk for restenosis/occlusion. Finalized by: Compa Medrano MD on 021 8:01 AM CDT Patient/Procedure Information: [facility] MRN/LETA: [id number] Order Number: [id number] Accession Number: [id number] Ordering Provider: GERTRUDE THOMAS Authorizing Provider: GERTRUDE THOMAS Performing Organization Address City/State/Zipcode Phone Number [id number] IR PICC OR CENTRAL LINE PLACEMENT (11/14/2020 4:59 PM CDT)Only the most recent of2 resultswithin the time period is included. Specimen Narrative Performed At [facility] Patient Name: BLAIR STAFFORD Date of : 1940 Procedure: IR PICC OR CENTRAL LINE PLAC EMENT Date of Service: 11/14/2020 EXAM: SUPERIOR VENACAVOGRAM, LEFT BRACHIOCEPHALIC VENO GRAM, RECANALIZATION OF OCCLUDED SUPERIOR VENA CAVA WITH BAL ALVA ANGIOPLASTY, TUNNELED CENTRAL VENOUS CATHETER PLACEME NT; REMOVAL OF LEFT ARM PICC INDICATION:Left upper extremity DVT status post left a rm PICC placement. Known SVC high-grade stenosis/occlusion. Bilateral upp er extremity swelling. Needs venous access for chemot herapy. SEDATION: Moderate IV sedation was used. Please see immediate post-operative/post-procedural note. TECHNIQUE: Informed consent was obtained. Patient pl aced supine position on the fluoroscopy table. Prior to the proced ure, ultrasound was performed identifying a patent right internal jugu lar vein. Image was recorded. Skin over the right neck and upper chest was prepped and draped in usual sterile fashion and the skin infiltrat ed with lidocaine. Using real-time ultrasound guidance, the right interna l jugular vein was accessed with a 21-gauge needle. 0.018-in guidewire wa s placed followed by a transitional catheter. With the transitional cath eter positioned in the lower right internal jugular vein, contrast inject ed and multiple DSA images obtained. This demonstrated occlusion of th e proximal superior vena cava with extensive collateral vein form ation, as previously demonstrated. Left arm PICC tip was positio dexter within the right brachycephalic vein, as previously demonstrated. 0.035-in guidewire was placed. Subsequently, a 6 Guinean sheath was placed. Catheter was manipulated into the left brachiocephalic vein. The catheter tip positioned in the left brachiocephalic ve in, contrast injected and multiple DSA images obtained. Using angle d catheter and 0.035-in Glidewire under fluoroscopic guidance, the martinez perior vena cava was recanalized. Contrast injection under fluoroscopy confirmed placement within the superior vena cava. Guidewire was advanced into the inferior vena cava under fluoroscopic guidance. The oc cluded segment was then dilated with an 8 mm x 4 cm balloon. Repeat venog main performed demonstrating no significant improvement in flow. Prol onged inflation performed with the 8 mm x 4 cm balloon demonstrating s ome improvement in flow. Subsequent dilation with a 10 mm x 4 cm balloon with significant improvement in flow, though significant residual steno sis. Patient did have discomfort with dilation with a 10 mm balloon, th erefore no further angioplasty performed. Lidocaine was administered in t he right subclavicular region and a short transverse incision m joseph. The 6 Guinean dual lumen powerline tunneled central venous catheter was then tunneled to the internal jugular access site and cut to the brian ropriate length. The sheath was exchanged for a peel-away sheath over t he guidewire after placement of an 0.018-in guidewire. The tunneled centr al venous catheter was then placed through the peel-away sheath and posit ioned at the cavoatrial junction. Final fluoroscopic image obtained . The catheter aspirated and flushed easily through both lumens. Derm abond placed at the venotomy site. The catheter was secured to skin wi th 2-0 silk suture. Sterile dressing applied. Left arm PICC was th en removed. Manual compression used hemostasis. Sterile dressing applied. Final fluoroscopic image obtained. ESTIMATED BLOOD LOSS: Less than 25 mL. CONDITION: Stable FINDINGS: Ultrasound demonstrates patency of the right internal jugular vein. Initial superior venacavogram demonstrates occlu kirby of the proximal superior vena cava with extensive collateral vein formation. Indwelling left arm PICC tip seen within the right bra chiocephalic vein, as previously intended. Left brachiocephalic venogram demonstrates patency of the left brachiocephalic vein with known th rombus within the left subclavian vein. After recanalization and crossin g of the SVC occlusion, patency is seen of the distal superior vena cava. Fluoroscopic images document venoplasty of the superio r vena cava with improved flow, though residual stenosis, post interven tion. Final fluoroscopic image demonstrates the tunneled central v enous catheter tip positioned at the cavoatrial junction. IMPRESSION: 1. 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 2. Successful recanalization and balloon venoplasty of the superior vena cava with improved flow. This was r esistant to venoplasty. 3. Successful tunneled Powerline central venous cath eter placement with catheter tip positioned at the cavo atrial junction. 4. Removal of left arm PICC. 5. Superior vena cava was resistant to venoplasty an d will be at high risk for restenosis/occlusion. Finalized by: Compa Medrano MD on 021 8:01 AM CDT Patient/Procedure Information: [facility] MRN/LETA: [id number] Order Number: [id number] Accession Number: [id number] Ordering Provider: GERTRUDE THOMAS Authorizing Provider: GERTRUDE THOMAS Procedure Note Juan, Radiantres - 11/15/2020 8:03 AM CDT Patient Name: BLAIR STAFFORD Date of : 1940 Procedure: IR PICC OR CENTRAL LINE PLAC EMENT Date of Service: 11/14/2020 EXAM: SUPERIOR VENACAVOGRAM, LEFT BRACHI OCEPHALIC VENOGRAM, RECANALIZATION OF OCCLUDED SUPERIOR VENA CAVA WITH BALLOON ANGIOPLASTY, TUNNELED CENTRAL VENOUS CATHETER PLACEMENT; REMOVAL OF LEFT ARM PICC INDICATION:Left upper extremity DVT stat us post left arm PICC placement. Known SVC high-grade stenosis/occlusion. Bilateral upper extremity swelling. Needs venous access for chemotherapy. SEDATION: Moderate IV sedation was used. Please see immediate post-operative/post-procedural note. TECHNIQUE: Informed consent was obtaine d. Patient placed supine position on the fluoroscopy table. Prior to the procedure, ultrasound was performed identifying a patent right internal jugular vein. Image was recorded. Skin over the right neck and upper chest was prepped and draped in usual sterile fashion and the skin infiltrated with lidocaine. Using real-time ultrasound guidance, the right internal jugular vein was accessed with a 21-gauge needle. 0.018-in guidewire was placed followed by a transitional catheter. With the transitional catheter positioned in the lower right internal jugular vein, contrast injected and multiple DSA images obtained. This demonstrated occlusion of the proxi mal superior vena cava with extensive collateral vein formation, as previously demonstrated. Left arm PICC tip was positioned within the right brachycephalic vein, as previously demonstrated. 0.035-in guidew melanie was placed. Subsequently, a 6 Guinean sheath was placed. Catheter was manipulated into the left brachiocephalic vein. The catheter tip positioned in the left brachiocephalic vein, contrast injected and multiple DSA images obtained. Using angled catheter and 0.035-in Glidewire under fluoroscopic guidance, the superior vena cava was recanalized. Contrast injection under fluoroscopy confirmed placement within t he superior vena cava. Guidewire was advanced into the inferior vena cava under fluoroscopic guidance. The occluded segment was then dilated with an 8 mm x 4 cm balloon. Repeat venography performed demonstrating no si gnificant improvement in flow. Prolonged inflation performed with the 8 mm x 4 cm balloon demonstrating some improvement in flow. Subsequent dilation with a 10 mm x 4 cm balloon with significant improvement in flow, th ough significant residual stenosis. Patient did have discomfort with dilation with a 10 mm balloon, therefore no further angioplasty performed. Lidocaine was administered in the right subclavicular region and a coty rt transverse incision made. The 6 Guinean dual lumen powerline tunneled central venous catheter was then tunneled to the internal jugular access site and cut to the appropriate length. The sheath was exchanged for a p eel-away sheath over the guidewire after placement of an 0.018-in guidewire. The tunneled central venous catheter was then placed through the peel-away sheath and positioned at the cavoatrial junction. Final fluorosco pic image obtained. The catheter aspirated and flushed easily through both lumens. Dermabond placed at the venotomy site. The catheter was secured to skin with 2-0 silk suture. Sterile dressing applied. Left arm PICC was then removed. Manual compression used hemostasis. Sterile dressing applied. Final fluoroscopic image obtained. ESTIMATED BLOOD LOSS: Less than 25 mL. CONDITION: Stable FINDINGS: Ultrasound demonstrates patenc y of the right internal jugular vein. Initial superior venacavogram demonstrates occlusion of the proximal superior vena cava with extensive collateral vein formation. Indwelling left arm PICC tip seen within the right brachiocephalic vein, as previously intended. Left brachiocephalic venogram demonstrates patency of the left brachiocephalic vein with known thrombus within the left subclavian vein. After recanalization an d crossing of the SVC occlusion, patency is seen of the distal superior vena cava. Fluoroscopic images document venoplasty of the superior vena cava with improved flow, though residual stenosis, post intervention. Fi nal fluoroscopic image demonstrates the tunneled central venous catheter tip positioned at the cavoatrial junction. IMPRESSION: 1. Chronically occluded superior vena c amanda with extensive collateral vein formation. Known left subclavian vein thrombosis. 2. Successful recanalization and balloo n venoplasty of the superior vena cava with improved flow. This was resistant to venoplasty. 3. Successful tunneled Powerline centra l venous catheter placement with catheter tip positioned at the cavoatrial junction. 4. Removal of left arm PICC. 5. Superior vena cava was resistant to venoplasty and will be at high risk for restenosis/occlusion. Finalized by: Compa Medrano MD on 021 8:01 AM CDT Patient/Procedure Information: [facility] MRN/LETA: [id number] Order Number: [id number] Accession Number: [id number] Ordering Provider: GERTRUDE THOMAS Authorizing Provider: GERTRUDE THOMAS Performing Organization Address [facility] Phone Number [id number] GLUCOSE BY METER, POCT (11/14/2020 12:23 PM CDT) Pathologist Sig nature Glucose POC 71 70 - 99 mg/dL [facility] Specimen Blood - Blood specimen (specimen) Performing Organization Address [facility] Phone Number [address] [address] GLUCOSE BY METER, POCT (11/14/2020 11:50 AM CDT) Pathologist Sig nature Glucose POC 63 (L) 70 - 99 mg/dL [facility] Specimen Blood - Blood specimen (specimen) Performing Organization Address [facility] Phone Number [address] [address] GLUCOSE BY METER, POCT (11/14/2020 11:15 AM CDT) Pathologist Sig nature Glucose POC 63 (L) 70 - 99 mg/dL [facility] Specimen Blood - Blood specimen (specimen) Performing Organization Address [facility] Phone Number [address] [address] [phone] LAB ONLY-COMPLETE BLOOD COUNT WITH DIFFERENTIAL (11/14/2020 10:49 AM CDT) Pathologist Sig nature WBC 2.8 (L) 4.0 - 11.0 K/uL [facility] RBC 3.14 (L) 3.80 - 5.30 [facility] M/uL CLINIC Hemoglobin 9.3 (L) 11.5 - 15.8 [facility] g/dL [facility] Hematocrit 28.8 (L) 35.0 - 45.0 % [facility] MCV 91.7 80.0 - 98.[address] [facility] MCH 29.6 25.5 - 34.[address] [facility] MCHC 32.3 31.5 - 36.5 [facility] g/dL [facility] RDW-CV 21.5 (H) 11.5 - 15.5 % [facility] RDW-SD 70.5 (H) 35.5 - 50.[address] [facility] Platelet Count 80 (L) 140 - 400 K/uL [facility] MPV 12.1 (H) 8.5 - 12.[address] [facility] Seg Neut Absolute 1.9 1.8 - 8.0 K/uL [facility] Lymphocytes Absolute 0.4 (L) 0.8 - 4.1 K/uL [facility] Monocytes Absolute 0.5 0.0 - 1.0 K/uL [facility] Eosinophils Absolute 0.1 0.0 - 0.7 K/uL [facility] Basophil Absolute 0.0 0.0 - 0.2 K/uL [facility] Immature Granulocyte 0.01 0.00 - 0.06 [facility] Absolute K/uL [facility] Neutrophils Abs. 1,900 /uL [facility] (Segs and Bands) [facility] Neutrophils Percent 66.8 % [facility] Lymphocytes Percent 13.7 % [facility] Monocytes Percent 16.2 % [facility] Immature Granulocyte 0.4 % [facility] Percent [facility] Eosinophils Percent 2.5 % [facility] Basophil Percent 0.4 % [facility] Nucleated RBC 0 /[address] [facility] Specimen Blood - Blood specimen (specimen) Performing Organization Address City/State/[place]code [place] [address] RENAL FUNCTION PANEL (11/14/2020 10:49 AM CDT) Pathologist [facility] nature Glucose 92 70 - 100 mg/dL [facility] BUN 12 6 - 22 mg/dL [facility] Creatinine 0.66 0.60 - 1.10 [facility] mg/dL [facility] BUN/Creatinine Ratio 18.2 10.0 - 25.[address] [facility] Sodium 140 135 - 145 meq/L [facility] Potassium 4.1 3.5 - 5.3 meq/L [facility] Chloride 120 (H) 99 - 110 meq/L [facility] CO2 18 (L) 20 - 29 meq/L [facility] Anion Gap with K 6 6 - 20 meq/L [facility] Calcium 7.3 (L) 8.5 - 10.5 mg/dL [facility] Phosphorus 1.8 (L) 2.5 - 4.5 mg/dL [facility] Albumin 1.7 (L) 3.5 - 5.0 g/dL [facility] Corrected Calcium 9.1 8.5 - 10.5 mg/dL [facility] Age [address] [facility] eGFR Non- 86 >=60 [facility] Gu[place]ian mL/min/1.73m2 [facility] eGFR >90 >=60 [facility] mL/min/1.73m2 CLINIC Specimen Blood - Blood specimen (specimen) Performing Organization Address [facility] Phone Number [address] [address] [phone] PROTIME/INR (11/14/2020 10:49 AM CDT) Pathologist Sig nature Protime 23.4 (H) 12.0 - 14.[address] [facility] INR 2.1 2.0 - 3.[address] [facility] Specimen Blood - Blood specimen (specimen) Narrative Performed At Normal INR reference range (patients not on oral [facility] anticoagulants) 0.9-1.1. INR Standard Intensity = (2.0 - 3.0) INR Higher Intensity = (2.5 - 3.5) Performing Organization Address [facility] Number [address] [address] MAGNESIUM (11/14/2020 10:49 AM CDT) Pathologist Sig nature Magnesium 2.0 1.8 - 2.4 mg/dL [facility] Specimen Blood - Blood specimen (specimen) Performing Organization Address [facility] Phone Number [address] [address] GLUCOSE BY METER, POCT (11/14/2020 5:48 AM CDT) Pathologist Sig nature Glucose POC 151 (H) 70 - 99 mg/dL [facility] Specimen Blood - Blood specimen (specimen) Performing Organization Address [facility] Phone Number [address] [address] [phone] GLUCOSE BY METER, POCT (11/13/2020 9:55 PM CDT) Pathologist Sig nature Glucose POC 227 (H) 70 - 99 mg/dL [facility] Specimen Blood - Blood specimen (specimen) Performing Organization Address [facility] Phone Number [address] [address] GLUCOSE BY METER, POCT (11/13/2020 5:24 PM CDT) Pathologist Sig nature Glucose POC 99 70 - 99 mg/dL [facility] Specimen Blood - Blood specimen (specimen) Performing Organization Address [facility] Number [address] [address] [phone] GLUCOSE BY METER, POCT (11/13/2020 11:33 AM CDT) Pathologist Sig nature Glucose POC 108 (H) 70 - 99 mg/dL [facility] Specimen Blood - Blood specimen (specimen) Performing Organization Address [facility] Number [address] [address] PTT (11/13/2020 8:51 AM CDT) Pathologist Sig nature APTT 39 (H) 24 - [address] [facility] Specimen Blood - Blood specimen (specimen) Performing Organization Address [facility] Number [address] [address] HEPATIC FUNCTION PANEL (11/13/2020 8:51 AM CDT) Pathologist Sig nature Alkaline Phosphatase 99 30 - 150 U/L [facility] AST - SGOT 21 0 - 35 U/L [facility] ALT - SGPT 7 0 - 55 U/L [facility] Bilirubin Total 0.9 0.2 - 1.2 mg/dL [facility] Bilirubin Indirect 0.2 0.0 - 0.8 mg/dL [facility] Bilirubin Direct 0.7 (H) 0.0 - 0.4 mg/dL [facility] Albumin 1.7 (L) 3.5 - 5.0 g/dL [facility] Protein Total 6.0 6.0 - 8.2 g/dL [facility] Specimen Blood - Blood specimen (specimen) Performing Organization Address City/State/Zipcode Phone Number [facility] [address] [place] [address] LAB ONLY-COMPLETE BLOOD COUNT WITH DIFFERENTIAL (11/13/2020 8:51 AM CDT) [facility] WBC 3.0 (L) 4.0 - 11.0 K/uL [facility] RBC 3.07 (L) 3.80 - 5.30 [facility] M/uL CLINIC Hemoglobin 9.4 (L) 11.5 - 15.8 [facility] g/dL [facility] Hematocrit 28.1 (L) 35.0 - 45.0 % [facility] MCV 91.5 80.0 - 98.[address] [facility] MCH 30.6 25.5 - 34.[address] [facility] MCHC 33.5 31.5 - 36.5 [facility] g/dL [facility] RDW-CV 21.1 (H) 11.5 - 15.5 % [facility] RDW-SD 69.1 (H) 35.5 - 50.[address] [facility] Platelet Count 76 (L) 140 - 400 K/uL [facility] MPV 12.8 (H) 8.5 - 12.[address] [facility] Seg Neut Absolute 2.1 1.8 - 8.0 K/uL [facility] Lymphocytes Absolute 0.3 (L) 0.8 - 4.1 K/uL [facility] Monocytes Absolute 0.5 0.0 - 1.0 K/uL [facility] Eosinophils Absolute 0.1 0.0 - 0.7 K/uL [facility] Basophil Absolute 0.0 0.0 - 0.2 K/uL [facility] Immature Granulocyte 0.02 0.00 - 0.06 [facility] Absolute K/uL CLINIC Neutrophils Abs. 2,100 /uL [facility] (Segs and Bands) [facility] Neutrophils Percent 69.2 % [facility] Lymphocytes Percent 10.6 % [facility] Monocytes Percent 16.2 % [facility] Immature Granulocyte 0.7 % [facility] Percent CLINIC Eosinophils Percent 3.0 % [facility] Basophil Percent 0.3 % [facility] Nucleated RBC 0 /[address] [facility] Specimen Blood - Blood specimen (specimen) Performing Organization Address [facility] Phone Number [facility] [address] [place] [address] RENAL FUNCTION PANEL (11/13/2020 8:51 AM CDT) Pathologist Sig [facility] Glucose 134 (H) 70 - 100 mg/dL [facility] BUN 10 6 - 22 mg/dL [facility] Creatinine 0.61 0.60 - 1.10 [facility] mg/dL [facility] BUN/Creatinine Ratio 16.4 10.0 - 25.[address] [facility] Sodium 139 135 - 145 meq/L [facility] Potassium 4.0 3.5 - 5.3 meq/L [facility] Chloride 118 (H) 99 - 110 meq/L [facility] CO2 16 (L) 20 - 29 meq/L [facility] Anion Gap with K 9 6 - 20 meq/L [facility] Calcium 7.1 (L) 8.5 - 10.5 mg/dL [facility] Phosphorus 2.1 (L) 2.5 - 4.5 mg/dL [facility] Albumin 1.7 (L) 3.5 - 5.0 g/dL [facility] Corrected Calcium 8.9 8.5 - 10.5 mg/dL [facility] Age [address] [facility] eGFR Non- >90 >=60 [facility] [place] mL/min/1.73m2 CLINIC eGFR >90 >=60 [facility] mL/min/1.73m2 CLINIC Specimen Blood - Blood specimen (specimen) Performing Organization Address [facility] Phone Number [address] [address] PROTIME/INR (11/13/2020 8:51 AM CDT) Pathologist Sig nature Protime 27.1 (H) 12.0 - 14.[address] [facility] INR 2.5 2.0 - 3.[address] [facility] Specimen Blood - Blood specimen (specimen) Narrative Performed At Normal INR reference range (patients not on oral [facility] anticoagulants) 0.9-1.1. INR Standard Intensity = (2.0 - 3.0) INR Higher Intensity = (2.5 - 3.5) Performing Organization Address City/[facility] Phone Number [address] [address] [phone] MAGNESIUM (11/13/2020 8:51 AM CDT) Pathologist Sig nature Magnesium 1.4 (L) 1.8 - 2.4 mg/dL [facility] Specimen Blood - Blood specimen (specimen) Performing Organization Address [facility] Phone Number [address] [address] VENOUS DUPLEX UPPER EXTREMITY DARWIN (11/13/2020 8:31 AM CDT) Specimen Narrative Performed At This result has an attachment that is no t available. Name: Blair Stafford : 1940 Date of Service: 11/13/2020 EXAM: US VENOUS DUPLEX UPPER EXTREMITY DARWIN INDICATION: Bilateral Upper Edema COMPARISON(S): none TECHNIQUE: Multiple real-time sonographic images obt ained using grayscale, color, and spectral Doppler. FINDINGS: RIGHT: Innominate Phasicity: Normal Internal Jugular Vein: Compressibility: Compresses Phasicity: Normal Subclavian Vein: Compressibility: Compresses Phasicity: Normal Axillary Vein: Compressibility: Compresses Phasicity: Normal Augmentation: Normal Brachial Vein: Compressibility: Compresses Phasicity: Normal Augmentation: Normal Basilic Vein: Compressibility: Compresses Phasicity: Normal Augmentation: Normal Cephalic Vein: Compressibility: Compresses Phasicity: Normal Augmentation: Normal LEFT: Innominate Phasicity: Normal Internal Jugular Vein: Compressibility: Compresses Phasicity: Abnormal Subclavian Vein: Compressibility: Not Imaged Phasicity: Absent Axillary Vein: Compressibility: Non-Compressible Phasicity: Absent Augmentation: Absent Brachial Vein: Compressibility: Compresses Phasicity: Normal Augmentation: Normal Basilic Vein: Compressibility: Non-Compressible Phasicity: Absent Augmentation: Absent Cephalic Vein: Compressibility: Compresses Phasicity: Normal Augmentation: Normal IMPRESSION: Acute Occlusive deep venous thrombosis present in the left subclavian and axillary veins. Acute superficial venous thrombosis of the left Basili c vein. Preliminary report given to Dr. Maria by Courtney Barnes, RVT at 0800 on 11/13/20. GLUCOSE BY METER, POCT (11/13/2020 5:03 AM CDT) Pathologist Sig [facility] Glucose POC 122 (H) 70 - 99 mg/dL [facility] Specimen Blood - Blood specimen (specimen) Performing Organization Address [facility] Phone Number [address] [address] GLUCOSE BY METER, POCT (11/12/2020 9:12 PM CDT) Pathologist Sig Recommend Glucose POC 222 (H) 70 - 99 mg/dL [facility] Specimen Blood - Blood specimen (specimen) Performing Organization Address [facility] Phone Number [address] [address] GLUCOSE BY METER, POCT (11/12/2020 5:04 PM CDT) Pathologist Sig Recommend Glucose POC 218 (H) 70 - 99 mg/dL [facility] Specimen Blood - Blood specimen (specimen) Performing Organization Address [facility] Phone Number [address] [address] LAB ONLY-MANUAL DIFFERENTIAL (11/12/2020 12:17 PM CDT) Pathologist [facility] Neutrophils Abs. (Segs 2,838 /uL [facility] and [facility]) [facility] Seg Neut Absolute 2.7 1.8 - 8.0 K/uL [facility] Band Absolute 0.1 0.0 - 0.7 K/uL [facility] Lymphocytes Absolute 0.2 (L) 0.8 - 4.1 K/uL [facility] Monocytes Absolute 0.2 0.0 - 1.0 K/uL [facility] Eosinophils Absolute 0.1 0.0 - 0.7 K/uL [facility] Neutrophils Percent 82.0 % [facility] Band Percent 4.0 % [facility] Lymphocytes Percent 6.0 % [facility] Monocytes Percent 5.0 % [facility] Eosinophils Percent 3.0 % [facility] Platelet Morphology Normal [facility] RBC Morphology Normal [facility] Specimen Blood - Blood specimen (specimen) Performing Organization Address [facility] Phone Number [facility] [address] [place] [address] LAB ONLY-COMPLETE BLOOD COUNT WITH DIFFERENTIAL (11/12/2020 12:17 PM CDT) [facility] WBC 3.3 (L) 4.0 - 11.0 K/uL [facility] RBC 3.36 (L) 3.80 - 5.30 M/uL [facility] Hemoglobin 10.0 (L) 11.5 - 15.8 g/dL [facility] Hematocrit 31.2 (L) 35.0 - 45.0 % [facility] MCV 92.9 80.0 - 98.[address] [facility] MCH 29.8 25.5 - 34.[address] [facility] MCHC 32.1 31.5 - 36.5 g/dL [facility] RDW-CV 21.1 (H) 11.5 - 15.5 % [facility] RDW-SD 70.4 (H) 35.5 - 50.[address] [facility] Platelet Count 72 (L) 140 - 400 K/uL [facility] MPV 12.7 (H) 8.5 - 12.[address] [facility] Specimen Blood - Blood specimen (specimen) Narrative Performed At A previously reported component Auto NRBCs is no longe r [facility] reported. Performing Organization Address City/[facility] Phone Number [facility] [address] [place] [address] RENAL FUNCTION PANEL (11/12/2020 12:17 PM CDT) [facility] Glucose 97 70 - 100 mg/dL [facility] BUN 11 6 - 22 mg/dL [facility] Creatinine 0.63 0.60 - 1.10 [facility] mg/dL [facility] BUN/Creatinine Ratio 17.5 10.0 - 25.[address] [facility] Sodium 138 135 - 145 meq/L [facility] Potassium 3.9 3.5 - 5.3 meq/L [facility] Chloride 116 (H) 99 - 110 meq/L [facility] CO2 16 (L) 20 - 29 meq/L [facility] Anion Gap with K 10 6 - 20 meq/L [facility] Calcium 7.1 (L) 8.5 - 10.5 mg/dL [facility] Phosphorus 2.9 2.5 - 4.5 mg/dL [facility] Albumin 1.9 (L) 3.5 - 5.0 g/dL [facility] Corrected Calcium 8.8 8.5 - 10.5 mg/dL [facility] Age [address] [facility] eGFR Non- >90 >=60 [facility] [place] mL/min/1.73m2 [facility] eGFR >90 >=60 [facility] mL/min/1.73m2 CLINIC Specimen Blood - Blood specimen (specimen) Performing Organization Address [facility] Phone Number [address] [phone] PROTIME/INR (11/12/2020 12:17 PM CDT) Pathologist Sig nature Protime 23.6 (H) 12.0 - 14.[address] [facility] INR 2.1 2.0 - 3.[address] [facility] Specimen Blood - Blood specimen (specimen) Narrative Performed At Normal INR reference range (patients not on oral [facility] anticoagulants) 0.9-1.1. INR Standard Intensity = (2.0 - 3.0) INR Higher Intensity = (2.5 - 3.5) Performing Organization Address [facility] Phone Number [address] [phone] MAGNESIUM (11/12/2020 12:17 PM CDT) Pathologist Sig nature Magnesium 1.8 1.8 - 2.4 mg/dL [facility] Specimen Blood - Blood specimen (specimen) Performing Organization Address [facility] Phone Number [address] [address] GLUCOSE BY METER, POCT (11/12/2020 11:53 AM CDT) Pathologist Sig nature Glucose POC 86 70 - 99 mg/dL [facility] Specimen Blood - Blood specimen (specimen) Performing Organization Address [facility] Phone Number [address] [address] GLUCOSE BY METER, POCT (11/12/2020 11:32 AM CDT) Pathologist Sig nature Glucose POC 60 (LL) 70 - 99 mg/dL [facility] Specimen Blood - Blood specimen (specimen) Performing Organization Address [facility] Phone Number [address] [address] GLUCOSE BY METER, POCT (11/12/2020 5:38 AM CDT) Pathologist Sig nature Glucose POC 173 (H) 70 - 99 mg/dL [facility] Specimen Blood - Blood specimen (specimen) Performing Organization Address [facility] Phone Number [address] [address] GLUCOSE BY METER, POCT (11/11/2020 9:09 PM CDT) Pathologist Sig nature Glucose POC 167 (H) 70 - 99 mg/dL [facility] Specimen Blood - Blood specimen (specimen) Performing Organization Address [facility] Phone Number [address] [address] GLUCOSE BY METER, POCT (11/11/2020 5:55 PM CDT) Pathologist Sig nature Glucose POC 183 (H) 70 - 99 mg/dL [facility] Specimen Blood - Blood specimen (specimen) Performing Organization Address [facility] Phone Number [address] [address] GLUCOSE BY METER, POCT (11/11/2020 11:48 AM CDT) Pathologist Sig nature Glucose POC 133 (H) 70 - 99 mg/dL [facility] Specimen Blood - Blood specimen (specimen) Performing Organization Address [facility] Phone Number [address], [place] [address] [phone] GLUCOSE BY METER, POCT (11/11/2020 5:45 AM CDT) Pathologist [facility] nature Glucose POC 143 (H) 70 - 99 mg/dL [facility] Specimen Blood - Blood specimen (specimen) Performing Organization Address City/State/Zipcode Phone Number [facility] [address] [facility], [place] [address] [phone] LAB ONLY-COMPLETE BLOOD COUNT WITH DIFFERENTIAL (11/11/2020 5:36 AM CDT) Pathologist [facility] WBC 3.1 (L)Comment: 4.0 - 11.0 [facility] This is a K/uL CLINIC corrected result. Result was previously reported as 3.0 K/uL on 11/11/[address] [place] [address]. RBC 3.13 (L)Comment: 3.80 - 5.30 [facility] This is a M/uL CLINIC corrected result. Result was previously reported as 3.08 M/uL on 11/11/[address] [place] [address]. Hemoglobin 9.3 (L)Comment: 11.5 - 15.8 [facility] This is a g/dL CLINIC corrected result. Result was previously reported as 9.2 g/dL on 11/11/[address] [place] [address]. Hematocrit 28.9 (L)Comment: 35.0 - 45.0 % [facility] This is a CLINIC corrected result. Result was previously reported as 27.9 % on 11/11/[address] [place] [address]. MCV 92.3Comment: This 80.0 - 98.0 [facility] is a corrected fL CLINIC result. Result was previously reported as 90.6 fL on 11/11/[address] [place] [address]. MCH 29.7Comment: This 25.5 - 34.0 [facility] is a corrected pg CLINIC result. Result was previously reported as 29.9 pg on 11/11/[address] [place] [address]. MCHC 32.2Comment: This 31.5 - 36.5 [facility] is a corrected g/dL CLINIC result. Result was previously reported as 33.0 g/dL on 11/11/[address] [place] [address]. RDW-CV 20.4 (H)Comment: 11.5 - 15.5 % [facility] This is a CLINIC corrected result. Result was previously reported as 20.5 % on 11/11/[address] [place], [place] [address]T. RDW-SD 67.4 (H)Comment: 35.5 - 50.0 [facility] This is a fl CLINIC corrected result. Result was previously reported as 66.5 fl on 11/11/[address] [place], [place] [address]T. Platelet Count 92 (L)Comment: 140 - 400 [facility] This is a K/uL CLINIC corrected result. Result was previously reported as 88 K/uL on 11/11/[address] [place], [place] [address]T. MPV 13.2 (H)Comment: 8.5 - 12.0 fL [facility] This is a CLINIC corrected result. Result was previously reported as 12.4 fL on 11/11/[address] [place], [place] [address]T. Seg Neut Absolute 2.2Comment: This 1.8 - 8.0 [facility] is a corrected K/uL CLINIC result. Result was previously reported [facility] Lymphocytes 0.3 (L) 0.8 - 4.1 [facility] Absolute K/uL CLINIC Monocytes Absolute 0.5Comment: This 0.0 - 1.0 [facility] is a corrected K/uL CLINIC result. Result was previously reported as 0.4 [facility] Eosinophils 0.1 0.0 - 0.7 [facility] Absolute K/uL CLINIC Basophil Absolute 0.0 0.0 - 0.2 [facility] K/uL CLINIC Immature 0.01Comment: This 0.00 - 0.06 [facility] Granulocyte is a corrected K/uL CLINIC Absolute result. Result was previously reported as 0.02 K[facility] Neutrophils Abs. 2,200Comment: This /uL [facility] (Segs and Bands) is a corrected CLINIC result. Result was previously reported as 2,100 /uL on 11/11/[address] [place], [place] [address]T. Neutrophils Percent 72.2Comment: This % [facility] is a corrected CLINIC result. Result was previously reported as 71.4 % on 11/11/2020 at 0555 CDT. Lymphocytes Percent 9.1Comment: This % [facility] is a corrected CLINIC result. Result was previously reported as 11.3 % on 11/11/2020 at 0555 CDT. Monocytes Percent 15.2Comment: This % [facility] is a corrected CLINIC result. Result was previously reported as 13.3 % on 11/11/2020 at 0555 CDT. Immature 0.3Comment: This % [facility] Granulocyte Percent is a corrected CLINIC result. Result was previously reported as 0.7 % on 11/11/2020 at 0555 CDT. Eosinophils Percent 2.9Comment: This % [facility] is a corrected CLINIC result. Result was previously reported as 3.0 % on 11/11/2020 at 0555 CDT. Basophil Percent 0.3 % [facility] Nucleated RBC 0 /[address] [facility] Specimen Blood - Blood specimen (specimen) Performing Organization Address City/State/Zipcode Phone Number [address] [address] RENAL FUNCTION PANEL (11/11/2020 5:36 AM CDT) [facility] Glucose 176 (H) 70 - 100 mg/dL [facility] BUN 10 6 - 22 mg/dL [facility] Creatinine 0.66 0.60 - 1.10 [facility] mg/dL [facility] BUN/Creatinine Ratio 15.2 10.0 - 25.[address] [facility] Sodium 136 135 - 145 meq/L [facility] Potassium 4.1 3.5 - 5.3 meq/L [facility] Chloride 115 (H) 99 - 110 meq/L [facility] CO2 20 20 - 29 meq/L [facility] Anion Gap with K 5 (L) 6 - 20 meq/L [facility] Calcium 7.0 (L) 8.5 - 10.5 mg/dL [facility] Phosphorus 1.8 (L) 2.5 - 4.5 mg/dL [facility] Albumin 1.7 (L) 3.5 - 5.0 g/dL [facility] Corrected Calcium 8.8 8.5 - 10.5 mg/dL [facility] Age [address] [facility] eGFR Non- 86 >=60 [facility] [place] mL/min/1.73m2 CLINIC eGFR >90 >=60 [facility] mL/min/1.73m2 CLINIC Specimen Blood - Blood specimen (specimen) Performing Organization Address [facility] Phone Number [address] [address] [phone] MAGNESIUM (11/11/2020 5:36 AM CDT) Pathologist Sig nature Magnesium 1.4 (L) 1.8 - 2.4 mg/dL [facility] Specimen Blood - Blood specimen (specimen) Performing Organization Address [facility] Phone Number [address] [address] PROTIME/INR (11/11/2020 5:36 AM CDT) Pathologist Sig nature Protime 26.3 (H) 12.0 - 14.[address] [facility] INR 2.4 2.0 - 3.[address] [facility] Specimen Blood - Blood specimen (specimen) Narrative Performed At Normal INR reference range (patients not on oral [facility] anticoagulants) 0.9-1.1. INR Standard Intensity = (2.0 - 3.0) INR Higher Intensity = (2.5 - 3.5) Performing Organization Address [facility] Number [address] [address] GLUCOSE BY METER, POCT (11/10/2020 8:37 PM CDT) Pathologist Sig nature Glucose POC 219 (H) 70 - 99 mg/dL [facility] Specimen Blood - Blood specimen (specimen) Performing Organization Address [facility] Phone Number [address] [address] GLUCOSE BY METER, POCT (11/10/2020 5:37 PM CDT) Pathologist Sig nature Glucose POC 105 (H) 70 - 99 mg/dL [facility] Specimen Blood - Blood specimen (specimen) Performing Organization Address [facility]/Zipcode Phone Number [address] [address] [phone] GLUCOSE BY METER, POCT (11/10/2020 11:06 AM CDT) Pathologist Sig nature Glucose POC 190 (H) 70 - 99 mg/dL [facility] Specimen Blood - Blood specimen (specimen) Performing Organization Address [facility] Phone Number [address] [address] GLUCOSE BY METER, POCT (11/10/2020 5:41 AM CDT) Pathologist Sig nature Glucose POC 144 (H) 70 - 99 mg/dL [facility] Specimen Blood - Blood specimen (specimen) Performing Organization Address [facility] Phone Number [address] [address] [phone] LAB ONLY-COMPLETE BLOOD COUNT WITH DIFFERENTIAL (11/10/2020 5:41 AM CDT) Pathologist Sig [facility] WBC 3.0 (L) 4.0 - 11.0 K/uL [facility] RBC 3.13 (L) 3.80 - 5.30 [facility] M/uL CLINIC Hemoglobin 9.3 (L) 11.5 - 15.8 [facility] g/dL [facility] Hematocrit 28.7 (L) 35.0 - 45.0 % [facility] MCV 91.7 80.0 - 98.[address] [facility] MCH 29.7 25.5 - 34.[address] [facility] MCHC 32.4 31.5 - 36.5 [facility] g/dL [facility] RDW-CV 20.3 (H) 11.5 - 15.5 % [facility] RDW-SD 66.9 (H) 35.5 - 50.[address] [facility] Platelet Count 87 (L) 140 - 400 K/uL [facility] MPV 12.7 (H) 8.5 - 12.[address] [facility] Seg Neut Absolute 2.2 1.8 - 8.0 K/uL [facility] Lymphocytes Absolute 0.4 (L) 0.8 - 4.1 K/uL [facility] Monocytes Absolute 0.3 0.0 - 1.0 K/uL [facility] Eosinophils Absolute 0.1 0.0 - 0.7 K/uL [facility] Basophil Absolute 0.0 0.0 - 0.2 K/uL [facility] Immature Granulocyte 0.02 0.00 - 0.06 [facility] Absolute K/uL [facility] Neutrophils Abs. 2,200 /uL [facility] (Segs and Bands) [facility] Neutrophils Percent 72.4 % [facility] Lymphocytes Percent 14.1 % [facility] Monocytes Percent 9.4 % [facility] Immature Granulocyte 0.7 % [facility] Percent CLINIC Eosinophils Percent 3.4 % [facility] Basophil Percent 0.0 % [facility] Nucleated RBC 0 /[address] [facility] Specimen Blood - Blood specimen (specimen) Performing Organization Address City/State/[place] [address] [phone] RENAL FUNCTION PANEL (11/10/2020 5:41 AM CDT) Pathologist [facility] Glucose 175 (H) 70 - 100 mg/dL [facility] BUN 10 6 - 22 mg/dL [facility] Creatinine 0.66 0.60 - 1.10 [facility] mg/dL [facility] BUN/Creatinine Ratio 15.2 10.0 - 25.[address] [facility] Sodium 137 135 - 145 meq/L [facility] Potassium 4.0 3.5 - 5.3 meq/L [facility] Chloride 114 (H) 99 - 110 meq/L [facility] CO2 22 20 - 29 meq/L [facility] Anion Gap with K 5 (L) 6 - 20 meq/L [facility] Calcium 7.2 (L) 8.5 - 10.5 mg/dL [facility] Phosphorus 2.3 (L) 2.5 - 4.5 mg/dL [facility] Albumin 1.8 (L) 3.5 - 5.0 g/dL [facility] Corrected Calcium 9.0 8.5 - 10.5 mg/dL [facility] Age [address] [facility] eGFR Non- 86 >=60 [facility] [place] mL/min/1.73m2 CLINIC eGFR >90 >=60 [facility] mL/min/1.73m2 CLINIC Specimen Blood - Blood specimen (specimen) Performing Organization Address [facility] Phone Number [address] [address] MAGNESIUM (11/10/2020 5:41 AM CDT) Pathologist Sig nature Magnesium 1.9 1.8 - 2.4 mg/dL [facility] Specimen Blood - Blood specimen (specimen) Performing Organization Address [facility] Phone Number [address] [address] PROTIME/INR (11/10/2020 5:41 AM CDT) Pathologist Sig nature Protime 25.6 (H) 12.0 - 14.[address] [facility] INR 2.4 2.0 - 3.[address] [facility] Specimen Blood - Blood specimen (specimen) Narrative Performed At Normal INR reference range (patients not on oral [facility] anticoagulants) 0.9-1.1. INR Standard Intensity = (2.0 - 3.0) INR Higher Intensity = (2.5 - 3.5) Performing [facility] Number [address] [address] GLUCOSE BY METER, POCT (11/09/2020 11:21 PM CDT) Pathologist Sig nature Glucose POC 172 (H) 70 - 99 mg/dL [facility] Specimen Blood - Blood specimen (specimen) Performing Organization Address [facility] Phone Number [address] [address] GLUCOSE BY METER, POCT (11/09/2020 5:36 PM CDT) Pathologist Sig nature Glucose POC 70 70 - 99 mg/dL [facility] Specimen Blood - Blood specimen (specimen) Performing Organization Address [facility] Phone Number [address] [address] GLUCOSE BY METER, POCT (11/09/2020 11:30 AM CDT) Pathologist Sig [facility] Glucose POC 211 (H) 70 - 99 mg/dL [facility] Specimen Blood - Blood specimen (specimen) Performing Organization Address [facility] Phone Number [address] [address] [phone] VANCOMYCIN TROUGH (11/09/2020 10:24 AM CDT) Pathologist Sig [facility] Vancomycin Trough 16.0 10.0 - 20.0 ug/mL [facility] Specimen Blood - Blood specimen (specimen) Performing Organization Address [facility] Phone Number [address] [address] [phone] GLUCOSE BY METER, POCT (11/09/2020 5:44 AM CDT) Pathologist Sig [facility] Glucose POC 137 (H) 70 - 99 mg/dL [facility] Specimen Blood - Blood specimen (specimen) Performing Organization Address [facility] Phone Number [address] [address] [phone] LAB ONLY-COMPLETE BLOOD COUNT WITH DIFFERENTIAL (11/09/2020 5:25 AM CDT) Pathologist Sig [facility] WBC 3.1 (L) 4.0 - 11.0 K/uL [facility] RBC 3.15 (L) 3.80 - 5.30 [facility] M/uL CLINIC Hemoglobin 9.3 (L) 11.5 - 15.8 [facility] g/dL [facility] Hematocrit 28.3 (L) 35.0 - 45.0 % [facility] MCV 89.8 80.0 - 98.[address] [facility] MCH 29.5 25.5 - 34.[address] [facility] MCHC 32.9 31.5 - 36.5 [facility] g/dL CLINIC RDW-CV 19.9 (H) 11.5 - 15.5 % [facility] RDW-SD 64.7 (H) 35.5 - 50.[address] [facility] Platelet Count 79 (L) 140 - 400 K/uL [facility] MPV 12.7 (H) 8.5 - 12.[address] [facility] Seg Neut Absolute 2.2 1.8 - 8.0 K/uL [facility] Lymphocytes Absolute 0.3 (L) 0.8 - 4.1 K/uL [facility] Monocytes Absolute 0.6 0.0 - 1.0 K/uL [facility] Eosinophils Absolute 0.1 0.0 - 0.7 K/uL [facility] Basophil Absolute 0.0 0.0 - 0.2 K/uL [facility] Immature Granulocyte 0.02 0.00 - 0.06 [facility] Absolute K/uL CLINIC Neutrophils Abs. 2,200 /uL [facility] (Segs and Bands) [facility] Neutrophils Percent 69.0 % [facility] Lymphocytes Percent 9.3 % [facility] Monocytes Percent 17.9 % [facility] Immature Granulocyte 0.6 % [facility] Percent CLINIC Eosinophils Percent 2.9 % [facility] Basophil Percent 0.3 % [facility] Nucleated RBC 0 /[address] [facility] Specimen Blood - Blood specimen (specimen) Performing Organization Address City/State/Zipcode Phone Number [address] [address] [phone] RENAL FUNCTION PANEL (11/09/2020 5:25 AM CDT) Pathologist Sig nature Glucose 166 (H) 70 - 100 mg/dL [facility] BUN 9 6 - 22 mg/dL [facility] Creatinine 0.64 0.60 - 1.10 [facility] mg/dL [facility] BUN/Creatinine Ratio 14.1 10.0 - 25.[address] [facility] Sodium 137 135 - 145 meq/L [facility] Potassium 3.6 3.5 - 5.3 meq/L [facility] Chloride 112 (H) 99 - 110 meq/L [facility] CO2 22 20 - 29 meq/L [facility] Anion Gap with K 7 6 - 20 meq/L [facility] Calcium 7.0 (L) 8.5 - 10.5 mg/dL [facility] Phosphorus 2.8 2.5 - 4.5 mg/dL [facility] Albumin 1.8 (L) 3.5 - 5.0 g/dL [facility] Corrected Calcium 8.8 8.5 - 10.5 mg/dL [facility] Age [address] [facility] eGFR Non- 89 >=60 [facility] [place] mL/min/1.73m2 CLINIC eGFR >90 >=60 [facility] mL/min/1.73m2 CLINIC Specimen Blood - Blood specimen (specimen) Performing Organization Address [facility] Phone Number [address] [address] MAGNESIUM (11/09/2020 5:25 AM CDT) Pathologist Sig nature Magnesium 1.7 (L) 1.8 - 2.4 mg/dL [facility] Specimen Blood - Blood specimen (specimen) Performing Organization Address [facility] Number [address] [address] PROTIME/INR (11/09/2020 5:25 AM CDT) Pathologist Sig nature Protime 24.2 (H) 12.0 - 14.[address] [facility] INR 2.2 2.0 - 3.[address] [facility] Specimen Blood - Blood specimen (specimen) Narrative Performed At Normal INR reference range (patients not on oral [facility] anticoagulants) 0.9-1.1. INR Standard Intensity = (2.0 - 3.0) INR Higher Intensity = (2.5 - 3.5) Performing Organization Address [facility] Number [address] [address] GLUCOSE BY METER, POCT (11/08/2020 5:51 PM CDT) Pathologist Sig nature Glucose POC 233 (H) 70 - 99 mg/dL [facility] Specimen Blood - Blood specimen (specimen) Performing Organization Address [facility] Phone Number [address] [address] GLUCOSE BY METER, POCT (11/08/2020 11:14 AM CDT) Pathologist Sig nature Glucose POC 180 (H) 70 - 99 mg/dL [facility] Specimen Blood - Blood specimen (specimen) Performing Organization Address [facility]/Zipcode Phone Number [facility] [address] [place] [address] [phone] GLUCOSE BY METER, POCT (11/08/2020 5:25 AM CDT) Pathologist [facility] Glucose POC 128 (H) 70 - 99 mg/dL [facility] Specimen Blood - Blood specimen (specimen) Performing Organization Address [facility] Phone Number [facility] [address] [place] [address] LAB ONLY-COMPLETE BLOOD COUNT WITH DIFFERENTIAL (11/08/2020 4:30 AM CDT) Pathologist [facility] WBC 2.9 (L) 4.0 - 11.0 K/uL [facility] RBC 3.19 (L) 3.80 - 5.30 [facility] M/uL CLINIC Hemoglobin 9.1 (L) 11.5 - 15.8 [facility] g/dL [facility] Hematocrit 28.4 (L) 35.0 - 45.0 % [facility] MCV 89.0 80.0 - 98.0 [facility] MCH 28.5 25.5 - 34.[address] [facility] MCHC 32.0 31.5 - 36.5 [facility] g/dL [facility] RDW-CV 19.7 (H) 11.5 - 15.5 % [facility] RDW-SD 63.6 (H) 35.5 - 50.0 [facility] Platelet Count 87 (L) 140 - 400 K/uL [facility] MPV 12.1 (H) 8.5 - 12.0 [facility] Seg Neut Absolute 2.0 1.8 - 8.0 K/uL [facility] Lymphocytes Absolute 0.3 (L) 0.8 - 4.1 K/uL [facility] Monocytes Absolute 0.5 0.0 - 1.0 K/uL [facility] Eosinophils Absolute 0.1 0.0 - 0.7 K/uL [facility] Basophil Absolute 0.0 0.0 - 0.2 K/uL [facility] Immature Granulocyte 0.03 0.00 - 0.06 [facility] Absolute K/uL CLINIC Neutrophils Abs. 2,000 /uL [facility] (Segs and Bands) [facility] Neutrophils Percent 68.8 % [facility] Lymphocytes Percent 9.5 % [facility] Monocytes Percent 16.3 % [facility] Immature Granulocyte 1.0 % [facility] Percent CLINIC Eosinophils Percent 4.1 % [facility] Basophil Percent 0.3 % [facility] Nucleated RBC 0 /[address] [facility] Specimen Blood - Blood specimen (specimen) Performing Organization Address [facility] Phone Number [address] [address] [phone] RENAL FUNCTION PANEL (11/08/2020 4:30 AM CDT) Pathologist Elvin canales Glucose 154 (H) 70 - 100 mg/dL [facility] BUN 9 6 - 22 mg/dL [facility] Creatinine 0.60 0.60 - 1.10 [facility] mg/dL [facility] BUN/Creatinine Ratio 15.0 10.0 - 25.[address] [facility] Sodium 137 135 - 145 meq/L [facility] Potassium 4.1 3.5 - 5.3 meq/L [facility] Chloride 113 (H) 99 - 110 meq/L [facility] CO2 20 20 - 29 meq/L [facility] Anion Gap with K 8 6 - 20 meq/L [facility] Calcium 7.1 (L) 8.5 - 10.5 mg/dL [facility] Phosphorus 2.0 (L) 2.5 - 4.5 mg/dL [facility] Albumin 1.8 (L) 3.5 - 5.0 g/dL [facility] Corrected Calcium 8.9 8.5 - 10.5 mg/dL [facility] Age [address] [facility] eGFR Non- >90 >=60 [facility] [place] mL/min/1.73m2 [facility] eGFR >90 >=60 [facility] mL/min/1.73m2 [facility] Specimen Blood - Blood specimen (specimen) Performing Organization Address [facility] Phone Number [address] [address] [phone] MAGNESIUM (11/08/2020 4:30 AM CDT) Pathologist Sig nature Magnesium 1.7 (L) 1.8 - 2.4 mg/dL [facility] Specimen Blood - Blood specimen (specimen) Performing Organization Address [facility] Phone Number [address] [address] [phone] PROTIME/INR (11/08/2020 4:30 AM CDT) Pathologist Sig nature Protime 24.6 (H) 12.0 - 14.[address] [facility] INR 2.2 2.0 - 3.[address] [facility] Specimen Blood - Blood specimen (specimen) Narrative Performed At Normal INR reference range (patients not on oral [facility] anticoagulants) 0.9-1.1. INR Standard Intensity = (2.0 - 3.0) INR Higher Intensity = (2.5 - 3.5) Performing Organization Address [address] [id number] [phone] LAB ONLY-URINE MICROSCOPIC REFLEX (11/07/2020 10:52 PM CDT) WBC Urine 0-5 /hpf Negative, 0-5 [facility] /hpf CLINIC RBC Urine 0-2 /hpf Negative, 0-2 [facility] /hpf CLINIC Squamous Epithelial Few (11-20) Negative, Occ [facility] Cells /lpf (0-10) /lpf, Few CLINIC (11-20) /lpf Bacteria Occ (0-10) Negative [facility] /hpf (A) CLINIC Specimen Urine - Urine specimen obtained by clean catch procedure (specimen) Narrative Performed At Culture not performed - reflex criteria not met. [facility] Culture is only performed when the urine macroscopic c olor is reported as Bright [place], or whentwoor more of th e following criteria are met: Positive Nitrite, Positive Leukocyte Esterase, WBC's > 5 cells/hpf. Performing Organization Address [facility] Phone Number [address] [address] URINE DIP, REFLEX TO MICROSCOPIC, REFLEX TO CULTURE (11/07/2020 10:52 PM CDT) Color Urine Yellow [place], Dark [facility] Yellow, Straw, CLINIC Yellow, Colorless Clarity Urine Clear Clear [facility] Glucose Urine >= 500 mg/dL Negative [facility] (A) CLINIC Bilirubin Urine Negative Negative [facility] Ketones Urine Negative Negative, 5 [facility] mg/dL, 10 mg/dL [facility] Specific [place] 1.008 1.002 - 1.[address] [facility] Blood Urine Small (1+) (A) Negative [facility] PH Urine 6.0 5.0, 5.5, 6.0, [facility] 6.5, 7.0, 7.5, CLINIC 8.0 Protein Urine Negative Negative [facility] Urobilinogen < 2 mg/dL < 2 mg/dL [facility] Nitrite Negative Negative [facility] Leukocyte Esterase Trace (A) Negative [facility] Urine [facility] Specimen Urine - Urine specimen obtained by clean catch procedure (specimen) Narrative Performed At Microscopic Exam Reflexed [facility] Performing Organization Address [facility] Phone Number [address] [address] GLUCOSE BY METER, POCT (11/07/2020 8:52 PM CDT) Pathologist Sig nature Glucose POC 204 (H) 70 - 99 mg/dL [facility] Specimen Blood - Blood specimen (specimen) Performing Organization Address [facility] Phone Number [address] [address] GLUCOSE BY METER, POCT (11/07/2020 5:30 PM CDT) Pathologist Sig nature Glucose POC 177 (H) 70 - 99 mg/dL [facility] Specimen Blood - Blood specimen (specimen) Performing Organization Address [facility] Phone Number [address] [address] GLUCOSE BY METER, POCT (11/07/2020 11:32 AM CDT) Pathologist Sig nature Glucose POC 122 (H) 70 - 99 mg/dL [facility] Specimen Blood - Blood specimen (specimen) Performing Organization Address [facility] Phone Number [address] [address] LAB ONLY-COMPLETE BLOOD COUNT WITH DIFFERENTIAL (11/07/2020 6:25 AM CDT) Pathologist Sig nature WBC 3.9 (L) 4.0 - 11.0 K/uL [facility] RBC 3.26 (L) 3.80 - 5.30 [facility] M/uL CLINIC Hemoglobin 9.6 (L) 11.5 - 15.8 [facility] g/dL [facility] Hematocrit 29.0 (L) 35.0 - 45.0 % [facility] MCV 89.0 80.0 - 98.[address] [facility] MCH 29.4 25.5 - 34.[address] [facility] MCHC 33.1 31.5 - 36.5 [facility] g/dL [facility] RDW-CV 19.5 (H) 11.5 - 15.5 % [facility] RDW-SD 63.1 (H) 35.5 - 50.[address] [facility] Platelet Count 82 (L) 140 - 400 K/uL [facility] MPV 13.0 (H) 8.5 - 12.[address] [facility] Seg Neut Absolute 2.9 1.8 - 8.0 K/uL [facility] Lymphocytes Absolute 0.3 (L) 0.8 - 4.1 K/uL [facility] Monocytes Absolute 0.6 0.0 - 1.0 K/uL [facility] Eosinophils Absolute 0.1 0.0 - 0.7 K/uL [facility] Basophil Absolute 0.0 0.0 - 0.2 K/uL [facility] Immature Granulocyte 0.04 0.00 - 0.06 [facility] Absolute K/uL CLINIC Neutrophils Abs. 2,900 /uL [facility] (Segs and Bands) [facility] Neutrophils Percent 72.9 % [facility] Lymphocytes Percent 7.4 % [facility] Monocytes Percent 15.1 % [facility] Immature Granulocyte 1.0 % [facility] Percent CLINIC Eosinophils Percent 3.1 % [facility] Basophil Percent 0.5 % [facility] Nucleated RBC 0 /[address] [facility] Specimen Blood - Blood specimen (specimen) Performing Organization Address City/State/Zipcode Phone Number [address] [address] [phone] RENAL FUNCTION PANEL (11/07/2020 6:25 AM CDT) Pathologist Sig nature Glucose 180 (H) 70 - 100 mg/dL [facility] BUN 9 6 - 22 mg/dL [facility] Creatinine 0.64 0.60 - 1.10 [facility] mg/dL [facility] BUN/Creatinine Ratio 14.1 10.0 - 25.[address] [facility] Sodium 135 135 - 145 meq/L [facility] Potassium 4.7 3.5 - 5.3 meq/L [facility] Chloride 110 99 - 110 meq/L [facility] CO2 22 20 - 29 meq/L [facility] Anion Gap with K 8 6 - 20 meq/L [facility] Calcium 7.1 (L) 8.5 - 10.5 mg/dL [facility] Phosphorus 2.7 2.5 - 4.5 mg/dL [facility] Albumin 1.8 (L) 3.5 - 5.0 g/dL [facility] Corrected Calcium 8.9 8.5 - 10.5 mg/dL [facility] Age [address] [facility] eGFR Non- 89 >=60 [facility] [place] mL/min/1.73m2 [facility] eGFR >90 >=60 [facility] mL/min/1.73m2 [facility] Specimen Blood - Blood specimen (specimen) Performing Organization Address [facility] Phone Number [address] [address] MAGNESIUM (11/07/2020 6:25 AM CDT) Pathologist Sig nature Magnesium 1.6 (L) 1.8 - 2.4 mg/dL [facility] Specimen Blood - Blood specimen (specimen) Performing Organization Address [facility] Phone Number [address] [address] [phone] PROTIME/INR (11/07/2020 6:25 AM CDT) Pathologist Sig nature Protime 24.3 (H) 12.0 - 14.[address] [facility] INR 2.2 2.0 - 3.[address] [facility] Specimen Blood - Blood specimen (specimen) Narrative Performed At Normal INR reference range (patients not on oral [facility] anticoagulants) 0.9-1.1. INR Standard Intensity = (2.0 - 3.0) INR Higher Intensity = (2.5 - 3.5) Performing Organization Address [facility] Number [address] [address] [phone] GLUCOSE BY METER, POCT (11/07/2020 5:58 AM CDT) Pathologist Sig nature Glucose POC 159 (H) 70 - 99 mg/dL [facility] Specimen Blood - Blood specimen (specimen) Performing Organization Address [address] [address] GLUCOSE BY METER, POCT (11/06/2020 9:00 PM CDT) Pathologist Sig nature Glucose POC 160 (H) 70 - 99 mg/dL [facility] Specimen Blood - Blood specimen (specimen) Performing Organization Address [facility] Number [address] [address] GLUCOSE BY METER, POCT (11/06/2020 5:28 PM CDT) Pathologist Sig nature Glucose POC 153 (H) 70 - 99 mg/dL [facility] Specimen Blood - Blood specimen (specimen) Performing Organization Address [facility] Number [address] [address] GLUCOSE BY METER, POCT (11/06/2020 11:50 AM CDT) Pathologist Sig nature Glucose POC 190 (H) 70 - 99 mg/dL [facility] Specimen Blood - Blood specimen (specimen) Performing Organization Address [facility] Center Number [address] [address] LAB ONLY-COMPLETE BLOOD COUNT WITH DIFFERENTIAL (11/06/2020 5:07 AM CDT) Pathologist Sig nature WBC 3.6 (L) 4.0 - 11.0 K/uL [facility] RBC 3.45 (L) 3.80 - 5.30 [facility] M/uL CLINIC Hemoglobin 10.0 (L) 11.5 - 15.8 [facility] g/dL [facility] Hematocrit 30.7 (L) 35.0 - 45.0 % [facility] MCV 89.0 80.0 - 98.[address] [facility] MCH 29.0 25.5 - 34.[address] [facility] MCHC 32.6 31.5 - 36.5 [facility] g/dL [facility] RDW-CV 19.4 (H) 11.5 - 15.5 % [facility] RDW-SD 62.3 (H) 35.5 - 50.[address] [facility] Platelet Count 89 (L) 140 - 400 K/uL [facility] MPV 12.4 (H) 8.5 - 12.[address] [facility] Seg Neut Absolute 2.6 1.8 - 8.0 K/uL [facility] Lymphocytes Absolute 0.2 (L) 0.8 - 4.1 K/uL [facility] Monocytes Absolute 0.6 0.0 - 1.0 K/uL [facility] Eosinophils Absolute 0.1 0.0 - 0.7 K/uL [facility] Basophil Absolute 0.0 0.0 - 0.2 K/uL [facility] Immature Granulocyte 0.02 0.00 - 0.06 [facility] Absolute K/uL [facility] Neutrophils Abs. 2,600 /uL [facility] (Segs and Bands) [facility] Neutrophils Percent 73.2 % [facility] Lymphocytes Percent 6.7 % [facility] Monocytes Percent 15.9 % [facility] Immature Granulocyte 0.6 % [facility] Percent CLINIC Eosinophils Percent 3.3 % [facility] Basophil Percent 0.3 % [facility] Nucleated RBC 0 /[address] [facility] Specimen Blood - Blood specimen (specimen) Performing Organization Address City/State/Zipcode Phone Number [address] [address] RENAL FUNCTION PANEL (11/06/2020 5:07 AM CDT) Pathologist Sig formerly [facility] Glucose 251 (H) 70 - 100 mg/dL [facility] BUN 10 6 - 22 mg/dL [facility] Creatinine 0.67 0.60 - 1.10 [facility] mg/dL [facility] BUN/Creatinine Ratio 14.9 10.0 - 25.[address] [facility] Sodium 134 (L) 135 - 145 meq/L [facility] Potassium 4.9 3.5 - 5.3 meq/L [facility] Chloride 109 99 - 110 meq/L [facility] CO2 21 20 - 29 meq/L [facility] Anion Gap with K 9 6 - 20 meq/L [facility] Calcium 7.1 (L) 8.5 - 10.5 mg/dL [facility] Phosphorus 2.2 (L) 2.5 - 4.5 mg/dL [facility] Albumin 1.9 (L) 3.5 - 5.0 g/dL [facility] Corrected Calcium 8.8 8.5 - 10.5 mg/dL [facility] Age [address] [facility] eGFR Non- 84 >=60 [facility] [place] mL/min/1.73m2 [facility] eGFR >90 >=60 [facility] mL/min/1.73m2 [facility] Specimen Blood - Blood specimen (specimen) Performing Organization Address [facility] Phone Number [address] [address] [phone] MAGNESIUM (11/06/2020 5:07 AM CDT) Pathologist Sig nature Magnesium 1.5 (L) 1.8 - 2.4 mg/dL [facility] Specimen Blood - Blood specimen (specimen) Performing Organization Address City/[facility] Phone Number [address] [address] PROTIME/INR (11/06/2020 5:07 AM CDT) Pathologist Sig nature Protime 23.0 (H) 12.0 - 14.[address] [facility] INR 2.1 2.0 - 3.[address] [facility] Specimen Blood - Blood specimen (specimen) Narrative Performed At Normal INR reference range (patients not on oral [facility] anticoagulants) 0.9-1.1. INR Standard Intensity = (2.0 - 3.0) INR Higher Intensity = (2.5 - 3.5) Performing [address] [address] GLUCOSE BY METER, POCT (11/06/2020 5:04 AM CDT) Pathologist Sig nature Glucose POC 200 (H) 70 - 99 mg/dL [facility] Specimen Blood - Blood specimen (specimen) Performing [address] [address] GLUCOSE BY METER, POCT (11/05/2020 8:43 PM ASSISTANT SURVEYOR) Pathologist Sig nature Glucose POC 166 (H) 70 - 99 mg/dL [facility] Specimen Blood - Blood specimen (specimen) Performing [address] [address] GLUCOSE BY METER, POCT (11/05/2020 5:09 PM ASSISTANT SURVEYOR) Pathologist Sig nature Glucose POC 267 (H) 70 - 99 mg/dL [facility] Specimen Blood - Blood specimen (specimen) Performing [address] [address] [phone] GLUCOSE BY METER, POCT (11/05/2020 11:14 AM ASSISTANT SURVEYOR) Pathologist Sig nature Glucose POC 141 (H) 70 - 99 mg/dL [facility] Specimen Blood - Blood specimen (specimen) Performing [address] [address] VANCOMYCIN TROUGH (11/05/2020 10:29 AM ASSISTANT SURVEYOR) Pathologist Sig nature Vancomycin Trough 20.8 (H) 10.0 - 20.0 [facility] ug/mL CLINIC Specimen Blood - Blood specimen (specimen) Performing [address] [address] GLUCOSE BY METER, POCT (11/05/2020 5:26 AM ASSISTANT SURVEYOR) [facility] Glucose POC 176 (H) 70 - 99 mg/dL [facility] Specimen Blood - Blood specimen (specimen) Performing Organization Address City/State/Zipcode Phone Number [facility] [address] [place] [address] LAB ONLY-COMPLETE BLOOD COUNT WITH DIFFERENTIAL (11/05/2020 5:05 AM ASSISTANT SURVEYOR) [facility] WBC 3.5 (L) 4.0 - 11.0 K/uL [facility] RBC 3.44 (L) 3.80 - 5.30 [facility] M/uL CLINIC Hemoglobin 10.1 (L) 11.5 - 15.8 [facility] g/dL [facility] Hematocrit 30.9 (L) 35.0 - 45.0 % [facility] MCV 89.8 80.0 - 98.[address] [facility] MCH 29.4 25.5 - 34.[address] [facility] MCHC 32.7 31.5 - 36.5 [facility] g/dL [facility] RDW-CV 19.2 (H) 11.5 - 15.5 % [facility] RDW-SD 62.2 (H) 35.5 - 50.[address] [facility] Platelet Count 81 (L) 140 - 400 K/uL [facility] MPV 12.4 (H) 8.5 - 12.[address] [facility] Seg Neut Absolute 2.6 1.8 - 8.0 K/uL [facility] Lymphocytes Absolute 0.2 (L) 0.8 - 4.1 K/uL [facility] Monocytes Absolute 0.6 0.0 - 1.0 K/uL [facility] Eosinophils Absolute 0.1 0.0 - 0.7 K/uL [facility] Basophil Absolute 0.0 0.0 - 0.2 K/uL [facility] Immature Granulocyte 0.03 0.00 - 0.06 [facility] Absolute K/uL CLINIC Neutrophils Abs. 2,600 /uL [facility] (Segs and Bands) [facility] Neutrophils Percent 72.7 % [facility] Lymphocytes Percent 6.6 % [facility] Monocytes Percent 16.9 % [facility] Immature Granulocyte 0.9 % [facility] Percent CLINIC Eosinophils Percent 2.6 % [facility] Basophil Percent 0.3 % [facility] Nucleated RBC 0 /[address] [facility] Specimen Blood - Blood specimen (specimen) Performing Organization Address [facility] Phone Number [address] [address] [phone] RENAL FUNCTION PANEL (11/05/2020 5:05 AM ASSISTANT SURVEYOR) Pathologist Sig nature Glucose 208 (H) 70 - 100 mg/dL [facility] BUN 10 6 - 22 mg/dL [facility] Creatinine 0.67 0.60 - 1.10 [facility] mg/dL [facility] BUN/Creatinine Ratio 14.9 10.0 - 25.[address] [facility] Sodium 136 135 - 145 meq/L [facility] Potassium 5.0 3.5 - 5.3 meq/L [facility] Chloride 113 (H) 99 - 110 meq/L [facility] CO2 21 20 - 29 meq/L [facility] Anion Gap with K 7 6 - 20 meq/L [facility] Calcium 7.1 (L) 8.5 - 10.5 mg/dL [facility] Phosphorus 1.9 (L) 2.5 - 4.5 mg/dL [facility] Albumin 1.9 (L) 3.5 - 5.0 g/dL [facility] Corrected Calcium 8.8 8.5 - 10.5 mg/dL [facility] Age [address] [facility] eGFR Non- 84 >=60 [facility] [place] mL/min/1.73m2 [facility] eGFR >90 >=60 [facility] mL/min/1.73m2 [facility] Specimen Blood - Blood specimen (specimen) Performing Organization Address [facility] Phone Number [address] [address] MAGNESIUM (11/05/2020 5:05 AM ASSISTANT SURVEYOR) Pathologist Sig nature Magnesium 1.4 (L) 1.8 - 2.4 mg/dL [facility] Specimen Blood - Blood specimen (specimen) Performing Organization Address [facility] Phone Number [address] [address] PROTIME/INR (11/05/2020 5:05 AM ASSISTANT SURVEYOR) Pathologist Sig nature Protime 24.6 (H) 12.0 - 14.[address] [facility] INR 2.2 2.0 - 3.[address] [facility] Specimen Blood - Blood specimen (specimen) Narrative Performed At Normal INR reference range (patients not on oral [facility] anticoagulants) 0.9-1.1. INR Standard Intensity = (2.0 - 3.0) INR Higher Intensity = (2.5 - 3.5) Performing Organization Address [facility] Number [address] [address] GLUCOSE BY METER, POCT (11/04/2020 8:32 PM ASSISTANT SURVEYOR) Pathologist Sig nature Glucose POC 306 (H) 70 - 99 mg/dL [facility] Specimen Blood - Blood specimen (specimen) Performing Organization Address [facility] Phone Number [address] [address] [phone] GLUCOSE BY METER, POCT (11/04/2020 5:14 PM ASSISTANT SURVEYOR) Pathologist Sig nature Glucose POC 236 (H) 70 - 99 mg/dL [facility] Specimen Blood - Blood specimen (specimen) Performing Organization Address [facility] Number [address] [address] GLUCOSE BY METER, POCT (11/04/2020 11:16 AM ASSISTANT SURVEYOR) Pathologist Sig nature Glucose POC 71 70 - 99 mg/dL [facility] Specimen Blood - Blood specimen (specimen) Performing Organization Address [facility] Number [address] [address] [phone] LAB ONLY-COMPLETE BLOOD COUNT WITH DIFFERENTIAL (11/04/2020 6:00 AM ASSISTANT SURVEYOR) Pathologist Sig nature WBC 3.7 (L) 4.0 - 11.0 K/uL [facility] RBC 3.35 (L) 3.80 - 5.30 [facility] M/uL CLINIC Hemoglobin 9.5 (L) 11.5 - 15.8 [facility] g/dL [facility] Hematocrit 29.6 (L) 35.0 - 45.0 % [facility] MCV 88.4 80.0 - 98.[address] [facility] MCH 28.4 25.5 - 34.[address] [facility] MCHC 32.1 31.5 - 36.5 [facility] g/dL [facility] RDW-CV 19.0 (H) 11.5 - 15.5 % [facility] RDW-SD 61.3 (H) 35.5 - 50.[address] [facility] Platelet Count 81 (L) 140 - 400 K/uL [facility] MPV 13.3 (H) 8.5 - 12.[address] [facility] Seg Neut Absolute 2.7 1.8 - 8.0 K/uL [facility] Lymphocytes Absolute 0.2 (L) 0.8 - 4.1 K/uL [facility] Monocytes Absolute 0.6 0.0 - 1.0 K/uL [facility] Eosinophils Absolute 0.1 0.0 - 0.7 K/uL [facility] Basophil Absolute 0.0 0.0 - 0.2 K/uL [facility] Immature Granulocyte 0.03 0.00 - 0.06 [facility] Absolute K/uL CLINIC Neutrophils Abs. 2,700 /uL [facility] (Segs and Bands) [facility] Neutrophils Percent 72.8 % [facility] Lymphocytes Percent 6.0 % [facility] Monocytes Percent 16.3 % [facility] Immature Granulocyte 0.8 % [facility] Percent CLINIC Eosinophils Percent 3.8 % [facility] Basophil Percent 0.3 % [facility] Nucleated RBC 0 /[address] [facility] Specimen Blood - Blood specimen (specimen) Performing Organization Address City/State/Zipcode Phone Number [address] [address] [phone] RENAL FUNCTION PANEL (11/04/2020 6:00 AM ASSISTANT SURVEYOR) Pathologist Sig [facility] Glucose 304 (H) 70 - 100 mg/dL [facility] BUN 9 6 - 22 mg/dL [facility] Creatinine 0.64 0.60 - 1.10 [facility] mg/dL [facility] BUN/Creatinine Ratio 14.1 10.0 - 25.[address] [facility] Sodium 134 (L) 135 - 145 meq/L [facility] Potassium 4.6 3.5 - 5.3 meq/L [facility] Chloride 110 99 - 110 meq/L [facility] CO2 21 20 - 29 meq/L [facility] Anion Gap with K 8 6 - 20 meq/L [facility] Calcium 6.9 (L) 8.5 - 10.5 mg/dL [facility] Phosphorus 2.8 2.5 - 4.5 mg/dL [facility] Albumin 1.8 (L) 3.5 - 5.0 g/dL [facility] Corrected Calcium 8.7 8.5 - 10.5 mg/dL [facility] Age [address] [facility] eGFR Non- 89 >=60 [facility] [place] mL/min/1.73m2 [facility] eGFR >90 >=60 [facility] mL/min/1.73m2 [facility] Specimen Blood - Blood specimen (specimen) Performing Organization Address [facility] Phone Number [address] [phone] MAGNESIUM (11/04/2020 6:00 AM ASSISTANT SURVEYOR) Pathologist Sig [facility] Magnesium 2.2 1.8 - 2.4 mg/dL [facility] Specimen Blood - Blood specimen (specimen) Performing Organization Address [facility] Phone Number [address] [phone] PROTIME/INR (11/04/2020 6:00 AM ASSISTANT SURVEYOR) Pathologist Sig [facility] Protime 24.5 (H) 12.0 - 14.[address] [facility] INR 2.2 2.0 - 3.[address] [facility] Specimen Blood - Blood specimen (specimen) Narrative Performed At Normal INR reference range (patients not on oral [facility] anticoagulants) 0.9-1.1. INR Standard Intensity = (2.0 - 3.0) INR Higher Intensity = (2.5 - 3.5) Performing Organization Address [facility] Phone Number [address] [address] GLUCOSE BY METER, POCT (11/04/2020 5:34 AM ASSISTANT SURVEYOR) Pathologist Sig nature Glucose POC 261 (H) 70 - 99 mg/dL [facility] Specimen Blood - Blood specimen (specimen) Performing Organization Address [facility] Phone Number [address] [address] GLUCOSE BY METER, POCT (11/03/2020 9:53 PM ASSISTANT SURVEYOR) Pathologist Sig nature Glucose POC 167 (H) 70 - 99 mg/dL [facility] Specimen Blood - Blood specimen (specimen) Performing Organization Address [facility] Number [address] [address] GLUCOSE BY METER, POCT (11/03/2020 5:17 PM ASSISTANT SURVEYOR) Pathologist Sig nature Glucose POC 287 (H) 70 - 99 mg/dL [facility] Specimen Blood - Blood specimen (specimen) Performing Organization Address [facility] Number [address] [address] LAB ONLY-COMPLETE BLOOD COUNT WITH DIFFERENTIAL (11/03/2020 2:41 PM ASSISTANT SURVEYOR) Pathologist Sig nature WBC 4.1 4.0 - 11.0 K/uL [facility] RBC 3.43 (L) 3.80 - 5.30 [facility] M/uL CLINIC Hemoglobin 9.8 (L) 11.5 - 15.8 [facility] g/dL [facility] Hematocrit 30.2 (L) 35.0 - 45.0 % [facility] MCV 88.0 80.0 - 98.[address] [facility] MCH 28.6 25.5 - 34.[address] [facility] MCHC 32.5 31.5 - 36.5 [facility] g/dL [facility] RDW-CV 18.8 (H) 11.5 - 15.5 % [facility] RDW-SD 60.3 (H) 35.5 - 50.[address] [facility] Platelet Count 69 (L) 140 - 400 K/uL [facility] MPV 12.9 (H) 8.5 - 12.[address] [facility] Seg Neut Absolute 3.2 1.8 - 8.0 K/uL [facility] Lymphocytes Absolute 0.2 (L) 0.8 - 4.1 K/uL [facility] Monocytes Absolute 0.6 0.0 - 1.0 K/uL [facility] Eosinophils Absolute 0.1 0.0 - 0.7 K/uL [facility] Basophil Absolute 0.0 0.0 - 0.2 K/uL [facility] Immature Granulocyte 0.02 0.00 - 0.06 [facility] Absolute K/uL [facility] Neutrophils Abs. 3,200 /uL [facility] (Segs and Bands) [facility] Neutrophils Percent 78.5 % [facility] Lymphocytes Percent 4.9 % [facility] Monocytes Percent 13.4 % [facility] Immature Granulocyte 0.5 % [facility] Percent CLINIC Eosinophils Percent 2.2 % [facility] Basophil Percent 0.5 % [facility] Nucleated RBC 0 /[address] [facility] Specimen Blood - Blood specimen (specimen) Performing Organization Address City/State/Zipcode [place] [address] RENAL FUNCTION PANEL (11/03/2020 2:41 PM ASSISTANT SURVEYOR) Pathologist Sig nature Glucose 302 (H) 70 - 100 mg/dL [facility] BUN 9 6 - 22 mg/dL [facility] Creatinine 0.68 0.60 - 1.10 [facility] mg/dL [facility] BUN/Creatinine Ratio 13.2 10.0 - 25.[address] [facility] Sodium 133 (L) 135 - 145 meq/L [facility] Potassium 4.9 3.5 - 5.3 meq/L [facility] Chloride 109 99 - 110 meq/L [facility] CO2 23 20 - 29 meq/L [facility] Anion Gap with K 6 6 - 20 meq/L [facility] Calcium 7.0 (L) 8.5 - 10.5 mg/dL [facility] Phosphorus 2.2 (L) 2.5 - 4.5 mg/dL [facility] Albumin 1.8 (L) 3.5 - 5.0 g/dL [facility] Corrected Calcium 8.8 8.5 - 10.5 mg/dL [facility] Age [address] [facility] eGFR Non- 83 >=60 [facility] [place] mL/min/1.73m2 CLINIC eGFR >90 >=60 [facility] mL/min/1.73m2 [facility] Specimen Blood - Blood specimen (specimen) Performing Organization Address [facility]/[address] [phone] MAGNESIUM (11/03/2020 2:41 PM ASSISTANT SURVEYOR) Pathologist Sig nature Magnesium 1.4 (L) 1.8 - 2.4 mg/dL [facility] Specimen Blood - Blood specimen (specimen) Performing Organization Address [address] [phone] PROTIME/INR (11/03/2020 2:41 PM ASSISTANT SURVEYOR) Pathologist Sig nature Protime 25.9 (H) 12.0 - 14.[address] [facility] INR 2.4 2.0 - 3.[address] [facility] Specimen Blood - Blood specimen (specimen) Narrative Performed At Normal INR reference range (patients not on oral [facility] anticoagulants) 0.9-1.1. INR Standard Intensity = (2.0 - 3.0) INR Higher Intensity = (2.5 - 3.5) Performing Organization [address] [phone] GLUCOSE BY METER, POCT (11/03/2020 11:36 AM ASSISTANT SURVEYOR) Pathologist Sig nature Glucose POC 142 (H) 70 - 99 mg/dL [facility] Specimen Blood - Blood specimen (specimen) Performing Organization Address [facility] Number [address] [address] GLUCOSE BY METER, POCT (11/03/2020 5:07 AM ASSISTANT SURVEYOR) Pathologist Sig nature Glucose POC 215 (H) 70 - 99 mg/dL [facility] Specimen Blood - Blood specimen (specimen) Performing Organization Address [facility] Phone Number [address] [place] [address] [phone] GLUCOSE BY METER, POCT (11/02/2020 10:07 PM ASSISTANT SURVEYOR) Pathologist Sig nature Glucose POC 267 (H) 70 - 99 mg/dL [facility] Specimen Blood - Blood specimen (specimen) Performing Organization Address [facility] Number [address] [place] [address] GLUCOSE BY METER, POCT (11/02/2020 4:54 PM ASSISTANT SURVEYOR) Pathologist Sig nature Glucose POC 130 (H) 70 - 99 mg/dL [facility] Specimen Blood - Blood specimen (specimen) Performing Organization Address [facility] Phone Number [address] [phone] GLUCOSE BY METER, POCT (11/02/2020 10:53 AM ASSISTANT SURVEYOR) Pathologist Sig nature Glucose POC 240 (H) 70 - 99 mg/dL [facility] Specimen Blood - Blood specimen (specimen) Performing Organization Address [facility] Number [address] [place] [address] [phone] GLUCOSE BY METER, POCT (11/02/2020 6:18 AM ASSISTANT SURVEYOR) Pathologist Sig nature Glucose POC 184 (H) 70 - 99 mg/dL [facility] Specimen Blood - Blood specimen (specimen) Performing Organization Address [facility] Phone Number [address] [place] [address] LAB ONLY-COMPLETE BLOOD COUNT WITH DIFFERENTIAL (11/02/2020 6:06 AM ASSISTANT SURVEYOR) Pathologist Sig nature WBC 4.6 4.0 - 11.0 K/uL [facility] RBC 3.31 (L) 3.80 - 5.30 [facility] M/uL CLINIC Hemoglobin 9.3 (L) 11.5 - 15.8 [facility] g/dL [facility] Hematocrit 29.2 (L) 35.0 - 45.0 % [facility] MCV 88.2 80.0 - 98.[address] [facility] MCH 28.1 25.5 - 34.[address] [facility] MCHC 31.8 31.5 - 36.5 [facility] g/dL [facility] RDW-CV 18.5 (H) 11.5 - 15.5 % [facility] RDW-SD 58.8 (H) 35.5 - 50.[address] [facility] Platelet Count 81 (L) 140 - 400 K/uL [facility] MPV 12.5 (H) 8.5 - 12.[address] [facility] Seg Neut Absolute 3.4 1.8 - 8.0 K/uL [facility] Lymphocytes Absolute 0.4 (L) 0.8 - 4.1 K/uL [facility] Monocytes Absolute 0.7 0.0 - 1.0 K/uL [facility] Eosinophils Absolute 0.1 0.0 - 0.7 K/uL [facility] Basophil Absolute 0.0 0.0 - 0.2 K/uL [facility] Immature Granulocyte 0.05 0.00 - 0.06 [facility] Absolute K/uL [facility] Neutrophils Abs. 3,400 /uL [facility] (Segs and Bands) [facility] Neutrophils Percent 73.0 % [facility] Lymphocytes Percent 7.6 % [facility] Monocytes Percent 15.1 % [facility] Immature Granulocyte 1.1 % [facility] Percent CLINIC Eosinophils Percent 3.0 % [facility] Basophil Percent 0.2 % [facility] Nucleated RBC 0 /[address] [facility] Specimen Blood - Blood specimen (specimen) Performing Organization Address City/State/Zipcode Phone Number [facility] [address] [place] [address] RENAL FUNCTION PANEL (11/02/2020 6:06 AM ASSISTANT SURVEYOR) Pathologist Sig nature Glucose 196 (H) 70 - 100 mg/dL [facility] BUN 10 6 - 22 mg/dL [facility] Creatinine 0.59 (L) 0.60 - 1.10 [facility] mg/dL [facility] BUN/Creatinine Ratio 16.9 10.0 - 25.[address] [facility] Sodium 135 135 - 145 meq/L [facility] Potassium 4.6 3.5 - 5.3 meq/L [facility] Chloride 110 99 - 110 meq/L [facility] CO2 21 20 - 29 meq/L [facility] Anion Gap with K 9 6 - 20 meq/L [facility] Calcium 7.1 (L) 8.5 - 10.5 [facility] mg/dL [facility] Phosphorus 2.2 (L) 2.5 - 4.5 mg/dL [facility] Albumin 1.8 (L) 3.5 - 5.0 g/dL [facility] Corrected Calcium 8.9 8.5 - 10.5 [facility] mg/dL [facility] Age [address] [facility] eGFR Non- >90 >=60 [facility] Gu[place] mL/min/1.73m2 [facility] eGFR >90 >=60 [facility] mL/min/1.73m2 [facility] Specimen Blood - Blood specimen (specimen) Performing Organization Address [facility] Phone Number [address] [address] MAGNESIUM (11/02/2020 6:06 AM ASSISTANT SURVEYOR) Pathologist Sig nature Magnesium 1.5 (L) 1.8 - 2.4 mg/dL [facility] Specimen Blood - Blood specimen (specimen) Performing Organization Address [facility] Phone Number [address] [address] [phone] PROTIME/INR (11/02/2020 6:06 AM ASSISTANT SURVEYOR) Pathologist Sig nature Protime 22.6 (H) 12.0 - 14.[address] [facility] INR 2.0 2.0 - 3.[address] [facility] Specimen Blood - Blood specimen (specimen) Narrative Performed At Normal INR reference range (patients not on oral [facility] anticoagulants) 0.9-1.1. INR Standard Intensity = (2.0 - 3.0) INR Higher Intensity = (2.5 - 3.5) Performing Organization Address [facility] Phone Number [address] [address] VANCOMYCIN RANDOM (11/02/2020 1:50 AM ASSISTANT SURVEYOR) Pathologist Sig nature Vancomycin Random 14.5 ug/mL [facility] Specimen Blood - Blood specimen (specimen) Performing Organization Address [facility] Phone Number [address] [address] GLUCOSE BY METER, POCT (11/01/2020 10:25 PM ASSISTANT SURVEYOR) Pathologist Sig nature Glucose POC 184 (H) 70 - 99 mg/dL [facility] Specimen Blood - Blood specimen (specimen) Performing Organization Address [facility] Number [address] [address] [phone] GLUCOSE BY METER, POCT (11/01/2020 5:32 PM ASSISTANT SURVEYOR) Pathologist Sig nature Glucose POC 181 (H) 70 - 99 mg/dL [facility] Specimen Blood - Blood specimen (specimen) Performing Organization Address [facility] Phone Number [address] [address] [phone] CLOSTRIDIUM DIFFICILE BY NAAT (PCR/LAMP) (11/01/2020 5:04 PM ASSISTANT SURVEYOR) C difficile Not Detected Not Detected [facility] Toxin B Gene NAD [facility] 027/NAP1/BI Presumptive Presumptive [place] Negative Negative [facility] Specimen Feces - Stool specimen (specimen) Narrative Performed At This test was performed by polymerase chain reaction [facility] (PCR) on the GeneXpert instrument. Performing Organization Address [facility] Phone Number [facility] [address] [place] [address] LAB[address] GLUCOSE BY METER, POCT (11/01/2020 12:34 PM ASSISTANT SURVEYOR) Pathologist Sig nature Glucose POC 169 (H) 70 - 99 mg/dL [facility] Specimen Blood - Blood specimen (specimen) Performing Organization Address [facility]/Zipcode Phone Number [facility] [address] [place] [address] [phone] LAB ONLY-MANUAL DIFFERENTIAL (11/01/2020 5:43 AM ASSISTANT SURVEYOR) Pathologist Sig nature Platelet Morphology Normal [facility] CLIN IC RBC Morphology Normal [facility] Specimen Blood - Blood specimen (specimen) Performing Organization Address [facility] Phone Number [facility] [address] [place] [address] LAB ONLY-COMPLETE BLOOD COUNT WITH DIFFERENTIAL (11/01/2020 5:43 AM ASSISTANT SURVEYOR) Pathologist Sig [facility] WBC 5.0 4.0 - 11.0 K/uL [facility] RBC 3.62 (L) 3.80 - 5.30 [facility] M/uL CLINIC Hemoglobin 10.5 (L) 11.5 - 15.8 [facility] g/dL [facility] Hematocrit 32.5 (L) 35.0 - 45.0 % [facility] MCV 89.8 80.0 - 98.[address] [facility] MCH 29.0 25.5 - 34.[address] [facility] MCHC 32.3 31.5 - 36.5 [facility] g/dL [facility] RDW-CV 18.1 (H) 11.5 - 15.5 % [facility] RDW-SD 58.5 (H) 35.5 - 50.[address] [facility] Platelet Count 72 (L) 140 - 400 K/uL [facility] MPV 13.4 (H) 8.5 - 12.[address] [facility] Seg Neut Absolute 3.8 1.8 - 8.0 K/uL [facility] Lymphocytes Absolute 0.3 (L) 0.8 - 4.1 K/uL [facility] Monocytes Absolute 0.6 0.0 - 1.0 K/uL [facility] Eosinophils Absolute 0.1 0.0 - 0.7 K/uL [facility] Basophil Absolute 0.0 0.0 - 0.2 K/uL [facility] Immature Granulocyte 0.04 0.00 - 0.06 [facility] Absolute K/uL CLINIC Neutrophils Abs. 3,800 /uL [facility] (Segs and Bands) [facility] Neutrophils Percent 77.4 % [facility] Lymphocytes Percent 6.9 % [facility] Monocytes Percent 12.5 % [facility] Immature Granulocyte 0.8 % [facility] Percent CLINIC Eosinophils Percent 2.2 % [facility] Basophil Percent 0.2 % [facility] Nucleated RBC 0 /[address] [facility] Specimen Blood - Blood specimen (specimen) Performing Organization Address [facility] Phone Number [address] [address] [phone] RENAL FUNCTION PANEL (11/01/2020 5:43 AM ASSISTANT SURVEYOR) Pathologist Sig nature Glucose 196 (H) 70 - 100 mg/dL [facility] BUN 10 6 - 22 mg/dL [facility] Creatinine 0.61 0.60 - 1.10 [facility] mg/dL [facility] BUN/Creatinine Ratio 16.4 10.0 - 25.[address] [facility] Sodium 135 135 - 145 meq/L [facility] Potassium 4.6 3.5 - 5.3 meq/L [facility] Chloride 109 99 - 110 meq/L [facility] CO2 23 20 - 29 meq/L [facility] Anion Gap with K 8 6 - 20 meq/L [facility] Calcium 7.2 (L) 8.5 - 10.5 mg/dL [facility] Phosphorus 2.2 (L) 2.5 - 4.5 mg/dL [facility] Albumin 1.9 (L) 3.5 - 5.0 g/dL [facility] Corrected Calcium 8.9 8.5 - 10.5 mg/dL [facility] Age [address] [facility] eGFR Non- >90 >=60 [facility] [place] mL/min/1.73m2 [facility] eGFR >90 >=60 [facility] mL/min/1.73m2 [facility] Specimen Blood - Blood specimen (specimen) Performing Organization Address [facility] Phone Number [address] [address] [phone] MAGNESIUM (11/01/2020 5:43 AM ASSISTANT SURVEYOR) Pathologist Sig nature Magnesium 1.5 (L) 1.8 - 2.4 mg/dL [facility] Specimen Blood - Blood specimen (specimen) Performing Organization Address [facility] Phone Number [address] [address] PROTIME/INR (11/01/2020 5:43 AM ASSISTANT SURVEYOR) Pathologist Sig nature Protime 23.4 (H) 12.0 - 14.[address] [facility] INR 2.1 2.0 - 3.[address] [facility] Specimen Blood - Blood specimen (specimen) Narrative Performed At Normal INR reference range (patients not on oral [facility] anticoagulants) 0.9-1.1. INR Standard Intensity = (2.0 - 3.0) INR Higher Intensity = (2.5 - 3.5) Performing Organization Address [address] [id number] HEPATIC FUNCTION PANEL (11/01/2020 5:43 AM ASSISTANT SURVEYOR) Pathologist [facility] Alkaline Phosphatase 95 30 - 150 U/L [facility] AST - SGOT 16 0 - 35 U/L [facility] ALT - SGPT 9 0 - 55 U/L [facility] Bilirubin Total 0.8 0.2 - 1.2 mg/dL [facility] Bilirubin Indirect 0.2 0.0 - 0.8 mg/dL [facility] Bilirubin Direct 0.6 (H) 0.0 - 0.4 mg/dL [facility] Albumin 1.9 (L) 3.5 - 5.0 g/dL [facility] Protein Total 6.1 6.0 - 8.2 g/dL [facility] Specimen Blood - Blood specimen (specimen) Performing Organization Address [facility] Phone Number [address] [phone] GLUCOSE BY METER, POCT (11/01/2020 5:42 AM ASSISTANT SURVEYOR) Pathologist Sig [facility] Glucose POC 167 (H) 70 - 99 mg/dL [facility] Specimen Blood - Blood specimen (specimen) Performing Organization Address [facility]/Zipcode Phone Number [address] [address] VANCOMYCIN RANDOM (10/31/2020 9:56 PM ASSISTANT SURVEYOR) Pathologist Sig [facility] Vancomycin Random 14.0 ug/mL [facility] Specimen Blood - Blood specimen (specimen) Performing Organization Address [facility] Phone Number [address] [address] GLUCOSE BY METER, POCT (10/31/2020 6:54 PM ASSISTANT SURVEYOR) Pathologist Sig [facility] Glucose POC 176 (H) 70 - 99 mg/dL [facility] Specimen Blood - Blood specimen (specimen) Performing Organization Address [facility] Phone Number [address] [address] [phone] GLUCOSE BY METER, POCT (10/31/2020 12:03 PM ASSISTANT SURVEYOR) Pathologist Sig [facility] Glucose POC 226 (H) 70 - 99 mg/dL [facility] Specimen Blood - Blood specimen (specimen) Performing Organization Address [facility] Phone Number [address] [address] LAB ONLY-COMPLETE BLOOD COUNT WITH DIFFERENTIAL (10/31/2020 5:16 AM ASSISTANT SURVEYOR) [facility] Sig [facility] WBC 5.9 4.0 - 11.0 K/uL [facility] RBC 3.73 (L) 3.80 - 5.30 [facility] M/uL CLINIC Hemoglobin 10.7 (L) 11.5 - 15.8 [facility] g/dL CLINIC Hematocrit 32.8 (L) 35.0 - 45.0 % [facility] MCV 87.9 80.0 - 98.[address] [facility] MCH 28.7 25.5 - 34.[address] [facility] MCHC 32.6 31.5 - 36.5 [facility] g/dL [facility] RDW-CV 17.7 (H) 11.5 - 15.5 % [facility] RDW-SD 57.0 (H) 35.5 - 50.[address] [facility] Platelet Count 69 (L) 140 - 400 K/uL [facility] Seg Neut Absolute 4.7 1.8 - 8.0 K/uL [facility] Lymphocytes Absolute 0.4 (L) 0.8 - 4.1 K/uL [facility] Monocytes Absolute 0.7 0.0 - 1.0 K/uL [facility] Eosinophils Absolute 0.2 0.0 - 0.7 K/uL [facility] Basophil Absolute 0.0 0.0 - 0.2 K/uL [facility] Immature Granulocyte 0.04 0.00 - 0.06 [facility] Absolute K/uL CLINIC Neutrophils Abs. 4,700 /uL [facility] (Segs and Bands) [facility] Neutrophils Percent 78.6 % [facility] Lymphocytes Percent 6.3 % [facility] Monocytes Percent 11.5 % [facility] Immature Granulocyte 0.7 % [facility] Percent CLINIC Eosinophils Percent 2.7 % [facility] Basophil Percent 0.2 % [facility] Nucleated RBC 0 /[address] [facility] Specimen Blood - Blood specimen (specimen) Performing Organization Address City/State/Zipcode Phone Number [address] [address] RENAL FUNCTION PANEL (10/31/2020 5:16 AM ASSISTANT SURVEYOR) Pathologist [facility] nature Glucose 121 (H) 70 - 100 mg/dL [facility] BUN 8 6 - 22 mg/dL [facility] Creatinine 0.59 (L) 0.60 - 1.10 [facility] mg/dL [facility] BUN/Creatinine Ratio 13.6 10.0 - 25.[address] [facility] Sodium 135 135 - 145 meq/L [facility] Potassium 4.6 3.5 - 5.3 meq/L [facility] Chloride 111 (H) 99 - 110 meq/L [facility] CO2 22 20 - 29 meq/L [facility] Anion Gap with K 7 6 - 20 meq/L [facility] Calcium 7.1 (L) 8.5 - 10.5 [facility] mg/dL CLINIC Phosphorus 1.4 (L) 2.5 - 4.5 mg/dL [facility] Albumin 1.9 (L) 3.5 - 5.0 g/dL [facility] Corrected Calcium 8.8 8.5 - 10.5 [facility] mg/dL CLINIC Age [address] [facility] eGFR Non- >90 >=60 [facility] [place] mL/min/1.73m2 CLINIC eGFR >90 >=60 [facility] mL/min/1.73m2 [facility]IN[facility] Specimen Blood - Blood specimen (specimen) Performing Organization Address [facility] Number [address] [address] MAGNESIUM (10/31/2020 5:16 AM ASSISTANT SURVEYOR) Pathologist Sig nature Magnesium 1.7 (L) 1.8 - 2.4 mg/dL [facility] Specimen Blood - Blood specimen (specimen) Performing Organization Address [address] [address] PROTIME/INR (10/31/2020 5:16 AM ASSISTANT SURVEYOR) Pathologist Sig nature Protime 25.9 (H) 12.0 - 14.[address] [facility] INR 2.4 2.0 - 3.[address] [facility] Specimen Blood - Blood specimen (specimen) Narrative Performed At Normal INR reference range (patients not on oral [facility] anticoagulants) 0.9-1.1. INR Standard Intensity = (2.0 - 3.0) INR Higher Intensity = (2.5 - 3.5) Performing Organization [facility] Number [address] [address] GLUCOSE BY METER, POCT (10/31/2020 5:01 AM ASSISTANT SURVEYOR) Pathologist Sig nature Glucose POC 114 (H) 70 - 99 mg/dL [facility] Specimen Blood - Blood specimen (specimen) Performing Organization Address [address] [address] [phone] GLUCOSE BY METER, POCT (10/30/2020 9:09 PM ASSISTANT SURVEYOR) Pathologist Sig nature Glucose POC 227 (H) 70 - 99 mg/dL [facility] Specimen Blood - Blood specimen (specimen) Performing Organization Address [facility] Phone Number [address] [address] GLUCOSE BY METER, POCT (10/30/2020 6:17 PM ASSISTANT SURVEYOR) Pathologist Sig Recommend Glucose POC 311 (H) 70 - 99 mg/dL [facility] Specimen Blood - Blood specimen (specimen) Performing Organization Address [facility] Phone Number [address] [address] GLUCOSE BY METER, POCT (10/30/2020 11:27 AM ASSISTANT SURVEYOR) Pathologist Sig Recommend Glucose POC 173 (H) 70 - 99 mg/dL [facility] Specimen Blood - Blood specimen (specimen) Performing Organization Address [facility] Phone Number [address] [address] [phone] LAB ONLY-COMPLETE BLOOD COUNT WITH DIFFERENTIAL (10/30/2020 6:35 AM ASSISTANT SURVEYOR) Pathologist Sig [facility] WBC 5.5 4.0 - 11.0 K/uL [facility] RBC 3.65 (L) 3.80 - 5.30 [facility] M/uL [facility] Hemoglobin 10.5 (L) 11.5 - 15.8 [facility] g/dL [facility] Hematocrit 31.7 (L) 35.0 - 45.0 % [facility] MCV 86.8 80.0 - 98.[address] [facility] MCH 28.8 25.5 - 34.[address] [facility] MCHC 33.1 31.5 - 36.5 [facility] g/dL [facility] RDW-CV 17.3 (H) 11.5 - 15.5 % [facility] RDW-SD 55.1 (H) 35.5 - 50.[address] [facility] Platelet Count 64 (L) 140 - 400 K/uL [facility] Seg Neut Absolute 4.4 1.8 - 8.0 K/uL [facility] Lymphocytes Absolute 0.3 (L) 0.8 - 4.1 K/uL [facility] Monocytes Absolute 0.7 0.0 - 1.0 K/uL [facility] Eosinophils Absolute 0.1 0.0 - 0.7 K/uL [facility] Basophil Absolute 0.0 0.0 - 0.2 K/uL [facility] Immature Granulocyte 0.04 0.00 - 0.06 [facility] Absolute K/uL CLINIC Neutrophils Abs. 4,400 /uL [facility] (Segs and Bands) [facility] Neutrophils Percent 79.1 % [facility] Lymphocytes Percent 5.8 % [facility] Monocytes Percent 11.8 % [facility] Immature Granulocyte 0.7 % [facility] Percent CLINIC Eosinophils Percent 2.4 % [facility] Basophil Percent 0.2 % [facility] Nucleated RBC 0 /[address] [facility] Specimen Blood - Blood specimen (specimen) Performing Organization Address City/State/Zipcode Phone Number [facility] [address] [place] [address] RENAL FUNCTION PANEL (10/30/2020 6:35 AM ASSISTANT SURVEYOR) Pathologist Sig nature Glucose 137 (H) 70 - 100 mg/dL [facility] BUN 8 6 - 22 mg/dL [facility] Creatinine 0.59 (L) 0.60 - 1.10 [facility] mg/dL [facility] BUN/Creatinine Ratio 13.6 10.0 - 25.[address] [facility] Sodium 137 135 - 145 meq/L [facility] Potassium 4.6 3.5 - 5.3 meq/L [facility] Chloride 112 (H) 99 - 110 meq/L [facility] CO2 21 20 - 29 meq/L [facility] Anion Gap with K 9 6 - 20 meq/L [facility] Calcium 6.9 (L) 8.5 - 10.5 [facility] mg/dL [facility] Phosphorus 1.6 (L) 2.5 - 4.5 mg/dL [facility] Albumin 1.8 (L) 3.5 - 5.0 g/dL [facility] Corrected Calcium 8.7 8.5 - 10.5 [facility] mg/dL [facility] Age [address] [facility] eGFR Non- >90 >=60 [facility] [place] mL/min/1.73m2 CLINIC eGFR >90 >=60 [facility] mL/min/1.73m2 [facility] Specimen Blood - Blood specimen (specimen) Performing Organization Address [facility] Phone Number [address] [address] [phone] MAGNESIUM (10/30/2020 6:35 AM ASSISTANT SURVEYOR) Pathologist Sig nature Magnesium 1.3 (L) 1.8 - 2.4 mg/dL [facility] Specimen Blood - Blood specimen (specimen) Performing Organization Address [facility] Phone Number [address] [address] PROTIME/INR (10/30/2020 6:35 AM ASSISTANT SURVEYOR) Pathologist Sig nature Protime 27.2 (H) 12.0 - 14.[address] [facility] INR 2.5 2.0 - 3.[address] [facility] [facility] [facility] Specimen Blood - Blood specimen (specimen) Narrative Performed At Normal INR reference range (patients not on oral [facility] anticoagulants) 0.9-1.1. INR Standard Intensity = (2.0 - 3.0) INR Higher Intensity = (2.5 - 3.5) Performing Organization Address [facility] Phone Number [address] [address] GLUCOSE BY METER, POCT (10/30/2020 5:22 AM ASSISTANT SURVEYOR) Pathologist Sig nature Glucose POC 138 (H) 70 - 99 mg/dL [facility] Specimen Blood - Blood specimen (specimen) Performing Organization Address [facility] Phone Number [address] [address] GLUCOSE BY METER, POCT (10/29/2020 9:26 PM ASSISTANT SURVEYOR) Pathologist Sig nature Glucose POC 168 (H) 70 - 99 mg/dL [facility] Specimen Blood - Blood specimen (specimen) Performing Organization Address [facility] Phone Number [address] [address] GLUCOSE BY METER, POCT (10/29/2020 5:39 PM ASSISTANT SURVEYOR) Pathologist Sig nature Glucose POC 291 (H) 70 - 99 mg/dL [facility] Specimen Blood - Blood specimen (specimen) Performing Organization Address [facility] Phone Number [facility] [address] [place] [address] GLUCOSE BY METER, POCT (10/29/2020 11:41 AM ASSISTANT SURVEYOR) [facility] Glucose POC 219 (H) 70 - 99 mg/dL [facility] Specimen Blood - Blood specimen (specimen) Performing Organization Address City/[facility] Phone Number [facility] [address] [place] [address] LAB ONLY-COMPLETE BLOOD COUNT WITH DIFFERENTIAL (10/29/2020 6:27 AM ASSISTANT SURVEYOR) [facility] WBC 6.5 4.0 - 11.0 K/uL [facility] RBC 4.00 3.80 - 5.30 [facility] M/uL CLINIC Hemoglobin 11.5 11.5 - 15.8 [facility] g/dL CLINIC Hematocrit 34.5 (L) 35.0 - 45.0 % [facility] MCV 86.3 80.0 - 98.[address] [facility] MCH 28.8 25.5 - 34.[address] [facility] MCHC 33.3 31.5 - 36.5 [facility] g/dL [facility] RDW-CV 17.1 (H) 11.5 - 15.5 % [facility] RDW-SD 53.6 (H) 35.5 - 50.[address] [facility] Platelet Count 76 (L) 140 - 400 K/uL [facility] Seg Neut Absolute 5.2 1.8 - 8.0 K/uL [facility] Lymphocytes Absolute 0.3 (L) 0.8 - 4.1 K/uL [facility] Monocytes Absolute 0.9 0.0 - 1.0 K/uL [facility] Eosinophils Absolute 0.1 0.0 - 0.7 K/uL [facility] Basophil Absolute 0.0 0.0 - 0.2 K/uL [facility] Immature Granulocyte 0.05 0.00 - 0.06 [facility] Absolute K/uL CLINIC Neutrophils Abs. 5,200 /uL [facility] (Segs and Bands) [facility] Neutrophils Percent 78.9 % [facility] Lymphocytes Percent 5.1 % [facility] Monocytes Percent 13.3 % [facility] Immature Granulocyte 0.8 % [facility] Percent CLINIC Eosinophils Percent 1.7 % [facility] Basophil Percent 0.2 % [facility] Nucleated RBC 0 /[address] [facility] Specimen Blood - Blood specimen (specimen) Performing Organization Address City[facility] Phone Number [address] [address] RENAL FUNCTION PANEL (10/29/2020 6:27 AM ASSISTANT SURVEYOR) Pathologist Elvin canales Glucose 199 (H) 70 - 100 mg/dL [facility] BUN 9 6 - 22 mg/dL [facility] Creatinine 0.59 (L) 0.60 - 1.10 [facility] mg/dL [facility] BUN/Creatinine Ratio 15.3 10.0 - 25.[address] [facility] Sodium 133 (L) 135 - 145 meq/L [facility] Potassium 4.3 3.5 - 5.3 meq/L [facility] Chloride 107 99 - 110 meq/L [facility] CO2 21 20 - 29 meq/L [facility] Anion Gap with K 9 6 - 20 meq/L [facility] Calcium 7.0 (L) 8.5 - 10.5 [facility] mg/dL [facility] Phosphorus 2.1 (L) 2.5 - 4.5 mg/dL [facility] Albumin 2.0 (L) 3.5 - 5.0 g/dL [facility] Corrected Calcium 8.6 8.5 - 10.5 [facility] mg/dL [facility] Age [address] [facility] eGFR Non- >90 >=60 [facility] [place] mL/min/1.73m2 [facility] eGFR >90 >=60 [facility] mL/min/1.73m2 [facility] Specimen Blood - Blood specimen (specimen) Performing Organization Address City/[facility] Phone Number [address] [address] MAGNESIUM (10/29/2020 6:27 AM ASSISTANT SURVEYOR) Pathologist Sig nature Magnesium 2.2 1.8 - 2.4 mg/dL [facility] Specimen Blood - Blood specimen (specimen) Performing Organization Address [facility] Number [address] [address] [phone] PROTIME/INR (10/29/2020 6:27 AM ASSISTANT SURVEYOR) Pathologist Sig nature Protime 22.6 (H) 12.0 - 14.[address] [facility] INR 2.0 2.0 - 3.[address] [facility] Specimen Blood - Blood specimen (specimen) Narrative Performed At Normal INR reference range (patients not on oral [facility] anticoagulants) 0.9-1.1. INR Standard Intensity = (2.0 - 3.0) INR Higher Intensity = (2.5 - 3.5) Performing Organization Address [address] [address] VANCOMYCIN TROUGH (10/29/2020 6:27 AM ASSISTANT SURVEYOR) Pathologist Sig nature Vancomycin Trough 16.0 10.0 - 20.0 ug/mL [facility] Specimen Blood - Blood specimen (specimen) Performing Organization Address [facility]/[address] [address] GLUCOSE BY METER, POCT (10/29/2020 5:48 AM ASSISTANT SURVEYOR) Pathologist Sig nature Glucose POC 157 (H) 70 - 99 mg/dL [facility] Specimen Blood - Blood specimen (specimen) Performing Organization Address [address] [address] [phone] GLUCOSE BY METER, POCT (10/28/2020 10:09 PM ASSISTANT SURVEYOR) Pathologist Sig nature Glucose POC 243 (H) 70 - 99 mg/dL [facility] Specimen Blood - Blood specimen (specimen) Performing Organization Address [facility]/[address] [address] [phone] GLUCOSE BY METER, POCT (10/28/2020 5:49 PM ASSISTANT SURVEYOR) Pathologist Sig [facility] Glucose POC 211 (H) 70 - 99 mg/dL [facility] Specimen Blood - Blood specimen (specimen) Performing Organization Address City/[facility]/Zipcode Phone Number [facility] [address] [place] [address] [phone] GLUCOSE BY METER, POCT (10/28/2020 11:54 AM ASSISTANT SURVEYOR) Pathologist Sig [facility] Glucose POC 97 70 - 99 mg/dL [facility] Specimen Blood - Blood specimen (specimen) Performing Organization Address [facility] Phone Number [address] [address] [phone] LAB ONLY-COMPLETE BLOOD COUNT WITH DIFFERENTIAL (10/28/2020 9:46 AM ASSISTANT SURVEYOR) Pathologist Sig [facility] WBC 7.3 4.0 - 11.0 K/uL [facility] RBC 3.98 3.80 - 5.30 [facility] M/uL CLINIC Hemoglobin 11.5 11.5 - 15.8 [facility] g/dL CLINIC Hematocrit 35.0 35.0 - 45.0 % [facility] MCV 87.9 80.0 - 98.[address] [facility] MCH 28.9 25.5 - 34.[address] [facility] MCHC 32.9 31.5 - 36.5 [facility] g/dL [facility] RDW-CV 16.9 (H) 11.5 - 15.5 % [facility] RDW-SD 53.5 (H) 35.5 - 50.[address] [facility] Platelet Count 63 (L) 140 - 400 K/uL [facility] MPV 12.5 (H) 8.5 - 12.[address] [facility] Seg Neut Absolute 5.8 1.8 - 8.0 K/uL [facility] Lymphocytes Absolute 0.4 (L) 0.8 - 4.1 K/uL [facility] Monocytes Absolute 0.9 0.0 - 1.0 K/uL [facility] Eosinophils Absolute 0.1 0.0 - 0.7 K/uL [facility] Basophil Absolute 0.0 0.0 - 0.2 K/uL [facility] Immature Granulocyte 0.04 0.00 - 0.06 [facility] Absolute K/uL [facility] Neutrophils Abs. 5,800 /uL [facility] (Segs and Bands) [facility] Neutrophils Percent 79.3 % [facility] Lymphocytes Percent 5.8 % [facility] Monocytes Percent 12.5 % [facility] Immature Granulocyte 0.5 % [facility] Percent CLINIC Eosinophils Percent 1.8 % [facility] Basophil Percent 0.1 % [facility] Nucleated RBC 0 /[address] [facility] Specimen Blood - Blood specimen (specimen) Performing Organization Address [facility] Phone Number [facility] [address] [place] [address] RENAL FUNCTION PANEL (10/28/2020 9:46 AM ASSISTANT SURVEYOR) Pathologist [facility] Glucose 99 70 - 100 mg/dL [facility] BUN 8 6 - 22 mg/dL [facility] Creatinine 0.56 (L) 0.60 - 1.10 [facility] mg/dL [facility] BUN/Creatinine Ratio 14.3 10.0 - 25.[address] [facility] Sodium 136 135 - 145 meq/L [facility] Potassium 4.4 3.5 - 5.3 meq/L [facility] Chloride 110 99 - 110 meq/L [facility] CO2 21 20 - 29 meq/L [facility] Anion Gap with K 9 6 - 20 meq/L [facility] Calcium 7.3 (L) 8.5 - 10.5 [facility] mg/dL [facility] Phosphorus 1.3 (L) 2.5 - 4.5 mg/dL [facility] Albumin 2.0 (L) 3.5 - 5.0 g/dL [facility] Corrected Calcium 8.9 8.5 - 10.5 [facility] mg/dL [facility] Age [address] [facility] eGFR Non- >90 >=60 [facility] [place] mL/min/1.73m2 [facility] eGFR >90 >=60 [facility] mL/min/1.73m2 CLINIC Specimen Blood - Blood specimen (specimen) Performing Organization Address [facility] Phone Number [facility] [address] [place] [address] MAGNESIUM (10/28/2020 9:46 AM ASSISTANT SURVEYOR) Pathologist Sig nature Magnesium 1.3 (L) 1.8 - 2.4 mg/dL [facility] Specimen Blood - Blood specimen (specimen) Performing Organization Address [facility] Phone Number [address] [address] PROTIME/INR (10/28/2020 9:46 AM ASSISTANT SURVEYOR) Pathologist Sig nature Protime 25.5 (H) 12.0 - 14.[address] [facility] INR 2.3 2.0 - 3.[address] [facility] Specimen Blood - Blood specimen (specimen) Narrative Performed At Normal INR reference range (patients not on oral [facility] anticoagulants) 0.9-1.1. INR Standard Intensity = (2.0 - 3.0) INR Higher Intensity = (2.5 - 3.5) Performing Organization Address [facility] Number [address] [address] GLUCOSE BY METER, POCT (10/28/2020 5:14 AM ASSISTANT SURVEYOR) Pathologist Sig nature Glucose POC 168 (H) 70 - 99 mg/dL [facility] Specimen Blood - Blood specimen (specimen) Performing Organization Address [facility] Phone Number [address] [address] GLUCOSE BY METER, POCT (10/27/2020 9:47 PM ASSISTANT SURVEYOR) Pathologist Sig nature Glucose POC 253 (H) 70 - 99 mg/dL [facility] Specimen Blood - Blood specimen (specimen) Performing Organization Address [facility] Phone Number [address] [address] VANCOMYCIN RANDOM (10/27/2020 6:06 PM ASSISTANT SURVEYOR) Pathologist Sig nature Vancomycin Random 18.5 ug/mL [facility] Specimen Blood - Blood specimen (specimen) Performing Organization Address [facility] Number [address] [address] [phone] GLUCOSE BY METER, POCT (10/27/2020 5:39 PM ASSISTANT SURVEYOR) Pathologist Sig nature Glucose POC 286 (H) 70 - 99 mg/dL [facility] Specimen Blood - Blood specimen (specimen) Performing Organization Address [facility] Phone Number [address] [address] GLUCOSE BY METER, POCT (10/27/2020 11:05 AM ASSISTANT SURVEYOR) Pathologist Sig nature Glucose POC 96 70 - 99 mg/dL [facility] Specimen Blood - Blood specimen (specimen) Performing Organization Address [facility] Phone Number [address] [address] [phone] VANCOMYCIN RANDOM (10/27/2020 7:50 AM ASSISTANT SURVEYOR) Pathologist Sig nature Vancomycin Random 23.3 ug/mL [facility] Specimen Blood - Blood specimen (specimen) Performing Organization Address [facility] Phone Number [address] [address] [phone] LAB ONLY-COMPLETE BLOOD COUNT WITH DIFFERENTIAL (10/27/2020 6:17 AM ASSISTANT SURVEYOR) Pathologist Sig [facility] WBC 4.6 4.0 - 11.0 K/uL [facility] RBC 3.87 3.80 - 5.30 [facility] M/uL CLINIC Hemoglobin 11.0 (L) 11.5 - 15.8 [facility] g/dL [facility] Hematocrit 34.2 (L) 35.0 - 45.0 % [facility] MCV 88.4 80.0 - 98.[address] [facility] MCH 28.4 25.5 - 34.[address] [facility] MCHC 32.2 31.5 - 36.5 [facility] g/dL [facility] RDW-CV 16.7 (H) 11.5 - 15.5 % [facility] RDW-SD 53.1 (H) 35.5 - 50.[address] [facility] Platelet Count 58 (L) 140 - 400 K/uL [facility] MPV 12.6 (H) 8.5 - 12.[address] [facility] Seg Neut Absolute 3.5 1.8 - 8.0 K/uL [facility] Lymphocytes Absolute 0.3 (L) 0.8 - 4.1 K/uL [facility] Monocytes Absolute 0.6 0.0 - 1.0 K/uL [facility] Eosinophils Absolute 0.1 0.0 - 0.7 K/uL [facility] Basophil Absolute 0.0 0.0 - 0.2 K/uL [facility] Immature Granulocyte 0.03 0.00 - 0.06 [facility] Absolute K/uL CLINIC Neutrophils Abs. 3,500 /uL [facility] (Segs and Bands) [facility] Neutrophils Percent 75.6 % [facility] Lymphocytes Percent 7.4 % [facility] Monocytes Percent 13.7 % [facility] Immature Granulocyte 0.7 % [facility] Percent CLINIC Eosinophils Percent 2.4 % [facility] Basophil Percent 0.2 % [facility] Nucleated RBC 0 /[address] [facility] Specimen Blood - Blood specimen (specimen) Performing Organization Address City/State/[facility] Phone Number [address] [address] RENAL FUNCTION PANEL (10/27/2020 6:17 AM ASSISTANT SURVEYOR) Pathologist Sig nature Glucose 215 (H) 70 - 100 mg/dL [facility] BUN 9 6 - 22 mg/dL [facility] Creatinine 0.63 0.60 - 1.10 [facility] mg/dL [facility] BUN/Creatinine Ratio 14.3 10.0 - 25.[address] [facility] Sodium 138 135 - 145 meq/L [facility] Potassium 4.2 3.5 - 5.3 meq/L [facility] Chloride 111 (H) 99 - 110 meq/L [facility] CO2 23 20 - 29 meq/L [facility] Anion Gap with K 8 6 - 20 meq/L [facility] Calcium 7.0 (L) 8.5 - 10.5 mg/dL [facility] Phosphorus 1.3 (L) 2.5 - 4.5 mg/dL [facility] Albumin 1.9 (L) 3.5 - 5.0 g/dL [facility] Corrected Calcium 8.7 8.5 - 10.5 mg/dL [facility] Age [address] [facility] eGFR Non- >90 >=60 [facility] [place] mL/min/1.73m2 CLINIC eGFR >90 >=60 [facility] mL/min/1.73m2 [facility]IN[facility] Specimen Blood - Blood specimen (specimen) Performing Organization Address [facility] Number [address] [address] [phone] MAGNESIUM (10/27/2020 6:17 AM ASSISTANT SURVEYOR) Pathologist Sig nature Magnesium 1.4 (L) 1.8 - 2.4 mg/dL [facility] Specimen Blood - Blood specimen (specimen) Performing Organization [address] [address] [phone] PROTIME/INR (10/27/2020 6:17 AM ASSISTANT SURVEYOR) Pathologist Sig nature Protime 26.4 (H) 12.0 - 14.[address] [facility] INR 2.5 2.0 - 3.[address] [facility] Specimen Blood - Blood specimen (specimen) Narrative Performed At Normal INR reference range (patients not on oral [facility] anticoagulants) 0.9-1.1. INR Standard Intensity = (2.0 - 3.0) INR Higher Intensity = (2.5 - 3.5) Performing [address] [address] GLUCOSE BY METER, POCT (10/27/2020 5:21 AM ASSISTANT SURVEYOR) Pathologist Sig nature Glucose POC 226 (H) 70 - 99 mg/dL [facility] Specimen Blood - Blood specimen (specimen) Performing Organization [address] [address] [phone] GLUCOSE BY METER, POCT (10/26/2020 4:43 PM ASSISTANT SURVEYOR) Pathologist Sig nature Glucose POC 213 (H) 70 - 99 mg/dL [facility] Specimen Blood - Blood specimen (specimen) Performing Organization Address City/State/Zipcode Phone Number [address] [address] [phone] GLUCOSE BY METER, POCT (10/26/2020 11:30 AM ASSISTANT SURVEYOR) Pathologist Sig nature Glucose POC 162 (H) 70 - 99 mg/dL [facility] Specimen Blood - Blood specimen (specimen) Performing Organization Address [facility] Phone Number [address] [address] GLUCOSE BY METER, POCT (10/26/2020 5:35 AM ASSISTANT SURVEYOR) Pathologist Sig nature Glucose POC 263 (H) 70 - 99 mg/dL [facility] Specimen Blood - Blood specimen (specimen) Performing Organization Address [facility] Phone Number [address] [address] [phone] LAB ONLY-COMPLETE BLOOD COUNT WITH DIFFERENTIAL (10/26/2020 4:25 AM ASSISTANT SURVEYOR) Pathologist Sig [facility] WBC 3.8 (L) 4.0 - 11.0 K/uL [facility] RBC 3.78 (L) 3.80 - 5.30 [facility] M/uL CLINIC Hemoglobin 10.7 (L) 11.5 - 15.8 [facility] g/dL [facility] Hematocrit 33.1 (L) 35.0 - 45.0 % [facility] MCV 87.6 80.0 - 98.[address] [facility] MCH 28.3 25.5 - 34.[address] [facility] MCHC 32.3 31.5 - 36.5 [facility] g/dL [facility] RDW-CV 16.4 (H) 11.5 - 15.5 % [facility] RDW-SD 52.2 (H) 35.5 - 50.[address] [facility] Platelet Count 67 (L) 140 - 400 K/uL [facility] MPV 12.9 (H) 8.5 - 12.[address] [facility] Seg Neut Absolute 2.8 1.8 - 8.0 K/uL [facility] Lymphocytes Absolute 0.3 (L) 0.8 - 4.1 K/uL [facility] Monocytes Absolute 0.6 0.0 - 1.0 K/uL [facility] Eosinophils Absolute 0.1 0.0 - 0.7 K/uL [facility] Basophil Absolute 0.0 0.0 - 0.2 K/uL [facility] Immature Granulocyte 0.01 0.00 - 0.06 [facility] Absolute K/uL [facility] Neutrophils Abs. 2,800 /uL [facility] (Segs and Bands) [facility] Neutrophils Percent 73.3 % [facility] Lymphocytes Percent 7.3 % [facility] Monocytes Percent 15.9 % [facility] Immature Granulocyte 0.3 % [facility] Percent CLINIC Eosinophils Percent 2.9 % [facility] Basophil Percent 0.3 % [facility] Nucleated RBC 0 /[address] [facility] Specimen Blood - Blood specimen (specimen) Performing Organization Address City/State/Zipcode [place] [address] RENAL FUNCTION PANEL (10/26/2020 4:25 AM ASSISTANT SURVEYOR) Pathologist Sig nature Glucose 258 (H) 70 - 100 mg/dL [facility] BUN 11 6 - 22 mg/dL [facility] Creatinine 0.67 0.60 - 1.10 [facility] mg/dL [facility] BUN/Creatinine Ratio 16.4 10.0 - 25.[address] [facility] Sodium 133 (L) 135 - 145 meq/L [facility] Potassium 4.0 3.5 - 5.3 meq/L [facility] Chloride 105 99 - 110 meq/L [facility] CO2 24 20 - 29 meq/L [facility] Anion Gap with K 8 6 - 20 meq/L [facility] Calcium 7.0 (L) 8.5 - 10.5 mg/dL [facility] Phosphorus 3.9 2.5 - 4.5 mg/dL [facility] Albumin 2.0 (L) 3.5 - 5.0 g/dL [facility] Corrected Calcium 8.6 8.5 - 10.5 mg/dL [facility] Age [address] [facility] eGFR Non- 84 >=60 [facility] [place] mL/min/1.73m2 CLINIC eGFR >90 >=60 [facility] mL/min/1.73m2 CLINIC Specimen Blood - Blood specimen (specimen) Performing Organization Address [facility] [facility] Phone Number [address] [address] [phone] MAGNESIUM (10/26/2020 4:25 AM ASSISTANT SURVEYOR) Pathologist Sig [facility] Magnesium 1.8 1.8 - 2.4 mg/dL [facility] Specimen Blood - Blood specimen (specimen) Performing Organization Address [facility] Phone Number [address] [address] [phone] PROTIME/INR (10/26/2020 4:25 AM ASSISTANT SURVEYOR) Pathologist Sig [facility] Protime 21.2 (H) 12.0 - 14.[address] [facility] INR 1.9 (L) 2.0 - 3.[address] [facility] Specimen Blood - Blood specimen (specimen) Narrative Performed At Normal INR reference range (patients not on oral [facility] anticoagulants) 0.9-1.1. INR Standard Intensity = (2.0 - 3.0) INR Higher Intensity = (2.5 - 3.5) Performing Organization Address [facility] Number [address] [address] VANCOMYCIN TROUGH (10/26/2020 4:25 AM ASSISTANT SURVEYOR) Pathologist Sig [facility] Vancomycin Trough 30.6 (H) 10.0 - 20.0 [facility] ug/mL CLINIC Specimen Blood - Blood specimen (specimen) Performing Organization Address [facility] Phone Number [address] [address] GLUCOSE BY METER, POCT (10/25/2020 8:43 PM ASSISTANT SURVEYOR) Pathologist Sig [facility] Glucose POC 147 (H) 70 - 99 mg/dL [facility] Specimen Blood - Blood specimen (specimen) Performing Organization Address [facility] Phone Number [address] [address] [phone] GLUCOSE BY METER, POCT (10/25/2020 5:26 PM ASSISTANT SURVEYOR) Pathologist Sig [facility] Glucose POC 216 (H) 70 - 99 mg/dL [facility] Specimen Blood - Blood specimen (specimen) Performing Organization Address [facility] Phone Number [address] [address] GLUCOSE BY METER, POCT (10/25/2020 11:26 AM ASSISTANT SURVEYOR) Pathologist Sig [facility] Glucose POC 130 (H) 70 - 99 mg/dL [facility] Specimen Blood - Blood specimen (specimen) Performing Organization Address [facility] Phone Number [address] [address] PROTIME/INR (10/25/2020 7:08 AM ASSISTANT SURVEYOR) Pathologist Sig [facility] Protime 22.1 (H) 12.0 - 14.[address] [facility] INR 2.0 2.0 - 3.[address] [facility] Specimen Blood - Blood specimen (specimen) Narrative Performed At Normal INR reference range (patients not on oral [facility] anticoagulants) 0.9-1.1. INR Standard Intensity = (2.0 - 3.0) INR Higher Intensity = (2.5 - 3.5) Performing Organization Address [facility] Phone Number [address] [address] [phone] LAB ONLY-COMPLETE BLOOD COUNT WITH DIFFERENTIAL (10/25/2020 7:07 AM ASSISTANT SURVEYOR) [facility] WBC 3.8 (L) 4.0 - 11.0 K/uL [facility] RBC 3.81 3.80 - 5.30 [facility] M/uL [facility] Hemoglobin 11.0 (L) 11.5 - 15.8 [facility] g/dL [facility] Hematocrit 34.2 (L) 35.0 - 45.0 % [facility] MCV 89.8 80.0 - 98.[address] [facility] MCH 28.9 25.5 - 34.[address] [facility] MCHC 32.2 31.5 - 36.5 [facility] g/dL [facility] RDW-CV 16.5 (H) 11.5 - 15.5 % [facility] RDW-SD 53.1 (H) 35.5 - 50.0 [facility] Platelet Count 74 (L) 140 - 400 K/uL [facility] MPV 12.5 (H) 8.5 - 12.0 [facility] Seg Neut Absolute 2.8 1.8 - 8.0 K/uL [facility] Lymphocytes Absolute 0.4 (L) 0.8 - 4.1 K/uL [facility] Monocytes Absolute 0.4 0.0 - 1.0 K/uL [facility] Eosinophils Absolute 0.1 0.0 - 0.7 K/uL [facility] Basophil Absolute 0.0 0.0 - 0.2 K/uL [facility] Immature Granulocyte 0.03 0.00 - 0.06 [facility] Absolute K/uL [facility] Neutrophils Abs. 2,800 /uL [facility] (Segs and Bands) [facility] Neutrophils Percent 75.5 % [facility] Lymphocytes Percent 10.4 % [facility] Monocytes Percent 10.9 % [facility] Immature Granulocyte 0.8 % [facility] Percent CLINIC Eosinophils Percent 2.4 % [facility] Basophil Percent 0.0 % [facility] Nucleated RBC 0 /[address] [facility] Specimen Blood - Blood specimen (specimen) Performing Organization Address City/State/Zipcode Phone Number [address] [phone] RENAL FUNCTION PANEL (10/25/2020 7:07 AM ASSISTANT SURVEYOR) Pathologist Sig nature Glucose 230 (H) 70 - 100 mg/dL [facility] BUN 11 6 - 22 mg/dL [facility] Creatinine 0.65 0.60 - 1.10 [facility] mg/dL [facility] BUN/Creatinine Ratio 16.9 10.0 - 25.[address] [facility] Sodium 134 (L) 135 - 145 meq/L [facility] Potassium 3.7 3.5 - 5.3 meq/L [facility] Chloride 105 99 - 110 meq/L [facility] CO2 24 20 - 29 meq/L [facility] Anion Gap with K 9 6 - 20 meq/L [facility] Calcium 7.3 (L) 8.5 - 10.5 mg/dL [facility] Phosphorus 1.9 (L) 2.5 - 4.5 mg/dL [facility] Albumin 2.0 (L) 3.5 - 5.0 g/dL [facility] Corrected Calcium 8.9 8.5 - 10.5 mg/dL [facility] Age [address] [facility] eGFR Non- 87 >=60 [facility] Gu[place]ian mL/min/1.73m2 [facility] eGFR >90 >=60 [facility] mL/min/1.73m2 CLINIC Specimen Blood - Blood specimen (specimen) Performing Organization Address [facility] Phone Number [address] [address] MAGNESIUM (10/25/2020 7:07 AM ASSISTANT SURVEYOR) Pathologist Sig nature Magnesium 1.6 (L) 1.8 - 2.4 mg/dL [facility] Specimen Blood - Blood specimen (specimen) Performing Organization Address [facility] Phone Number [address] [address] GLUCOSE BY METER, POCT (10/25/2020 5:02 AM ASSISTANT SURVEYOR) Pathologist Sig nature Glucose POC 243 (H) 70 - 99 mg/dL [facility] Specimen Blood - Blood specimen (specimen) Performing Organization Address [facility] Phone Number [address] [address] GLUCOSE BY METER, POCT (10/24/2020 8:14 PM ASSISTANT SURVEYOR) Pathologist Sig nature Glucose POC 125 (H) 70 - 99 mg/dL [facility] Specimen Blood - Blood specimen (specimen) Performing Organization Address [facility] Phone Number [address] [address] IR PICC OR CENTRAL LINE REPOSITION (10/24/2020 6:55 PM ASSISTANT SURVEYOR) Specimen Narrative Performed At [facility] Patient Name: BLAIR STAFFORD Date of : 1940 Procedure: IR PICC OR CENTRAL LINE REPO SITION Date of Service: 10/24/2020 EXAM: CENTRAL VENOGRAM, FLUOROSCOPICALLY GUIDED PICC REPOSITIONING INDICATION:Check PICC position, unable t o get blood return. TECHNIQUE: Patient placed supine position on the flu oroscopy table. Electrical And Radio Mechanic fluoroscopic image obtained. The indwelling PICC and surrounding skin were prepped and draped in the usual sterile fash ion. Contrast injected through the indwelling catheter demonstrating left arm PICC with positioning within the distal right brachiocephal ic vein with high-grade stenosis of the SVC. Attempt was made to cr oss this with a Glidewire under fluoroscopic guidance, without success . Guidewire was able to be manipulated into the proximal right brachio cephalic vein. Catheter advanced over the Glidewire. Contrast injecti on of fluoroscopy confirmed placement. The catheter was fl ushed and secured in place. FINDINGS: Venography demonstrates tip of the catheter in the region of the central right brachiocephalic vein with high-grade stenosis of the superior vena cava. Final venography and fluoroscopic images demonstrate catheter tip within the right brachiocep halic vein. IMPRESSION: 1. Central venous stenosis of the SVC. The PICC was unable to be advanced into the lower SVC. 2. Fluoroscopically guided repositioning of the left arm PICC into the contralateral right brachiocephalic vein. The catheter is ready to be used for general venous access. Finalized by: Compa Medrano MD on 10/25/19 7:12 PM ASSISTANT SURVEYOR Patient/Procedure Information: [facility] MRN/LETA: [id number] Order Number: [id number] Accession Number: [id number] Ordering Provider: GERTRUDE THOMAS Authorizing Provider: GERTRUDE THOMAS Procedure Note Interface, Christenantres - 10/24/2020 7:14 PM ASSISTANT SURVEYOR Patient Name: BLAIR STAFFORD Date of : 1940 Procedure: IR PICC OR CENTRAL LINE REPO SITION Date of Service: 10/24/2020 EXAM: CENTRAL VENOGRAM, FLUOROSCOPICALLY GUIDED PICC REPOSITIONING INDICATION:Check PICC position, unable t o get blood return. TECHNIQUE: Patient placed supine positi on on the fluoroscopy table. Electrical And Radio Mechanic fluoroscopic image obtained. The indwelling PICC and surrounding skin were prepped and draped in the usual sterile fashion. Contrast injected through the indwelling catheter demonstrating le ft arm PICC with positioning within the distal right brachiocephalic vein with high-grade stenosis of the SVC. Attempt was made to cross this with a Glidewire under fluoroscopic guidance, without success. Guidewire was able to be manipulated into the proximal right brachiocephalic vein. Catheter advanced over the Glidewire. Contrast injection of fluoroscopy confirmed placement. The catheter was flushed and secured in place. FINDINGS: Venography demonstrates tip of the catheter in the region of the central right brachiocephalic vein with high-grade stenosis of the superior vena cava. Final venography and fluoroscopic images demonstrate catheter tip within the right brachiocep halic vein. IMPRESSION: 1. Central venous stenosis of the SVC. The PICC was unable to be advanced into the lower SVC. 2. Fluoroscopically guided repositionin g of the left arm PICC into the contralateral right brachiocephalic vein. The catheter is ready to be used for general venous access. Finalized by: Compa Medrano MD on 10/25/19 21 7:12 PM ASSISTANT SURVEYOR Patient/Procedure Information: [facility] MRN/LETA: [id number] Order Number: [id number] Accession Number: [id number] Ordering Provider: GERTRUDE THOMAS Authorizing Provider: GERTRUDE THOMAS Performing Organization Address City/State/Zipcode Phone Number [id number] TISSUE EXAM (10/24/2020 5:50 PM ASSISTANT SURVEYOR) FINAL DIAGNOSIS A. FINGER, OSTEOMYELITIS RIGHT INDEX FINGER, DIG IT AMPUTATION: SCOTT SHAH Electronically - Gangrenous necrosis with a cute abscess formation extending to the inked margin, see comment. BARBARA signed by Shayne, - Acute osteomyelitis. LABORATORY Trudy cornelius DO on 11/03/2020 at 5 :19 PM DIAGNOSIS COMMENT Correlation with [facility] tissue cultures is VALLEY recommended. LABORATORY GROSS DESCRIPTION SCOTT SHAH Received in formalin labeled "right index finger"(of fink skin, bone, and soft tissue up to 3.9 x 1.9 x 1.9 cm grossly consistent with distal phalanges. The suero skin is sloughing and has an up to 0.9 VALLEY cm ulceration at the distal tip. Specimen is absent nail bed matrix. The ulceration is 3.1 cm from the inked margin of resection. Sectioning reveals the ulceration have fink brown underlying discolor LABORATORY ations up to 0.3 cm defect t hat is 0.3 cm from underlying bone. One full- thickness cross section is submitted in A1 and A2 following further fixation and decalcification. Jewelry Casting Model Maker Apprentice sections are submitted as follows (2 bl ocks): A1-A2 auto service representative sectio ns to include margins of resection following decalcification JA MICROSCOPIC Microscopic [facility] DESCRIPTION examination MEDIMONT performed. LABORATORY Clinical Osteomyelitis right [facility] Information index finger [facility] LABORATORY CASE REPORT Surgical Pathology Report Case: [id number] [facility] Authorizing Provider: Herber Bruce MD Collected: 10/24/2020 1750 MEDIMONT Ordering Location: [facility] Received: 10/24/2020 1841 LABORATORY Pathologist: Maria D Bella DO Specimen: Finger, osteo myelitis right index finger EMBEDDED IMAGES [facility] LABORATORY Specimen Tissue - Entire finger (body structure) Performing Organization Address [facility] Phone Number [facility] [address] [place] [phone] LABORATORY [address] CULTURE BACTERIAL, OTHER WITH GRAM STAIN (10/24/2020 5:39 PM ASSISTANT SURVEYOR) Culture Result No growth [facility] LABORATORY Gram Stain Moderate (10 to [facility] 25/LPF) WBC's LABORATORY Gram Stain No epithelial cells [facility] seen LABORATORY Gram Stain No organisms seen [facility] LABORATORY Specimen Fluid - Entire finger (body structure) Narrative Performed At right index finger swab [facility] right index finger swab Culture for sensitivity, aerobes, anaerobes, gram stain Performing Organization Address [facility] Phone Number [facility] [address] [place] [phone] LABORATORY [address] CULTURE BACTERIAL, ANAEROBE (10/24/2020 5:39 PM ASSISTANT SURVEYOR) Pathologist Sig nature Culture Result No anaerobic growth [facility] ALLA Y at 5 days LABORATORY Specimen Fluid - Entire finger (body structure) Narrative Performed At right index finger swab [facility] right index finger swab Culture for sensitivity, aerobes, anaerobes, gram stain Performing Organization Address [facility] Phone Number [facility] [address] [place] [phone] PREPARE AND HOLD FRESH FROZEN PLASMA IN MLS- BLOOD BANK (10/24/2020 2:21 PM ASSISTANT SURVEYOR) Pathologist [facility] Product Code [id number] LAB BPAM Unit Number [id number] LAB Unit ABO Type O LAB Unit Rh Type POS LAB BPAM Dispense Status TR LAB BPAM Blood [id number] LAB Expiration Date BPAM Coding System 5100 LAB Product Code Plasma, LAB thawed/Apheresis Unit ID [id number] LAB Product Status Transfused LAB Specimen Performing Organization Address City/[facility]/Zipcode Phone Number LAB PREPARE AND HOLD FRESH FROZEN PLASMA IN MLS- BLOOD BANK (10/24/2020 2:00 PM ASSISTANT SURVEYOR) Pathologist [facility] Product Code [id number] LAB BPAM Unit Number [id number] LAB Unit ABO Type O LAB Unit Rh Type POS LAB BPAM Dispense Status RE LAB BPAM Blood [id number] LAB Expiration Date BPAM Coding System 5100 LAB Product Code Plasma, LAB thawed/Apheresis Unit ID [id number] LAB Product Status Released from LAB Crossmatched Specimen Performing Organization Address City/[facility] Phone Number LAB XRAY CHEST PORTABLE - (10/24/2020 1:14 PM ASSISTANT SURVEYOR) Specimen Narrative Performed At [facility] Patient Name: BLAIR STAFFORD Date of : 1940 Procedure: XRAY CHEST PORTABLE Date of Service: 10/24/2020 EXAM: XRAY CHEST PORTABLE INDICATION:Confirm PICC placement. COMPARISON(S): 10/21/2020 FINDINGS/IMPRESSION: Left PICC has been placed and takes an unusual course inferior to the aortic arch. This could be repositioned. Alternatively , this could be injected with contrast or CT could be performed to bet ter evaluate the course of the PICC. Elevation left hemidiaphragm. Atel ectasis and consolidation left lower lung. Aortic calcification. N odular opacity right midlung is unchanged. Findings discussed with Brittany Rubin RN and Dr. Partha colby via Secure Chat on 10/24/2020 1:21 PM ASSISTANT SURVEYOR. Finalized by: Yuly Russell MD on 3/1/2 021 1:25 PM ASSISTANT SURVEYOR Patient/Procedure Information: [facility] MRN/LETA: [id number] Order Number: [id number] Accession Number: [id number] Ordering Provider: GERTRUDE THOMAS Authorizing Provider: GERTRUDE THOMAS Procedure Note Aravind Martinez - 10/24/2020 1:27 PM ASSISTANT SURVEYOR Patient Name: BLAIR STAFFORD Date of : 1940 Procedure: XRAY CHEST PORTABLE Date of Service: 10/24/2020 EXAM: XRAY CHEST PORTABLE INDICATION:Confirm PICC placement. COMPARISON(S): 10/21/2020 FINDINGS/IMPRESSION: Left PICC has been placed and takes an u nusual course inferior to the aortic arch. This could be repositioned. Alternatively, this could be injected with contrast or CT could be performed to better evaluate the course of the PICC. Elevation left hemid iaphragm. Atelectasis and consolidation left lower lung. Aortic calcification. Nodular opacity right midlung is unchanged. Findings discussed with Debbie Villagran and Dr. Thomas via Secure Chat on 10/24/2020 1:21 PM ASSISTANT SURVEYOR. Finalized by: Yuly Russell MD on 021 1:25 PM ASSISTANT SURVEYOR Patient/Procedure Information: [facility] MRN/LETA: [id number] Order Number: [id number] Accession Number: [id number] Ordering Provider: GERTRUDE THOMAS Authorizing Provider: GERTRUDE THOMAS Performing Organization Address City/[facility] Phone Number [id number] GLUCOSE BY METER, POCT (10/24/2020 12:22 PM ASSISTANT SURVEYOR) Pathologist Sig nature Glucose POC 84 70 - 99 mg/dL [facility] Specimen Blood - Blood specimen (specimen) Performing Organization Address City/[facility]/Zipcode Phone Number [address] [address] [phone] GLUCOSE BY METER, POCT (10/24/2020 11:39 AM ASSISTANT SURVEYOR) Pathologist Sig nature Glucose POC 65 (L) 70 - 99 mg/dL [facility] Specimen Blood - Blood specimen (specimen) Performing Organization Address City/[facility]/Zipcode Phone Number [address] [place] [address] GLUCOSE BY METER, POCT (10/24/2020 11:09 AM ASSISTANT SURVEYOR) Pathologist [facility] Glucose POC 67 (L) 70 - 99 mg/dL [facility] Specimen Blood - Blood specimen (specimen) Performing Organization Address City/State/Zipcode Phone Number [facility] [address] [place] [address] LAB ONLY-COMPLETE BLOOD COUNT WITH DIFFERENTIAL (10/24/2020 9:52 AM ASSISTANT SURVEYOR) Pathologist [facility] WBC 4.9 4.0 - 11.0 K/uL [facility] RBC 4.45 3.80 - 5.30 [facility] M/uL CLINIC Hemoglobin 12.5 11.5 - 15.8 [facility] g/dL [facility] Hematocrit 38.8 35.0 - 45.0 % [facility] MCV 87.2 80.0 - 98.[address] [facility] MCH 28.1 25.5 - 34.[address] [facility] MCHC 32.2 31.5 - 36.5 [facility] g/dL [facility] RDW-CV 16.3 (H) 11.5 - 15.5 % [facility] RDW-SD 51.5 (H) 35.5 - 50.[address] [facility] Platelet Count 97 (L) 140 - 400 K/uL [facility] MPV 12.2 (H) 8.5 - 12.[address] [facility] Seg Neut Absolute 3.7 1.8 - 8.0 K/uL [facility] Lymphocytes Absolute 0.2 (L) 0.8 - 4.1 K/uL [facility] Monocytes Absolute 0.8 0.0 - 1.0 K/uL [facility] Eosinophils Absolute 0.1 0.0 - 0.7 K/uL [facility] Basophil Absolute 0.0 0.0 - 0.2 K/uL [facility] Immature Granulocyte 0.02 0.00 - 0.06 [facility] Absolute K/uL CLINIC Neutrophils Abs. 3,700 /uL [facility] (Segs and Bands) [facility] Neutrophils Percent 75.9 % [facility] Lymphocytes Percent 4.7 % [facility] Monocytes Percent 15.7 % [facility] Immature Granulocyte 0.4 % [facility] Percent CLINIC Eosinophils Percent 2.9 % [facility] Basophil Percent 0.4 % [facility] Nucleated RBC 0 /[address] [facility] Specimen Blood - Blood specimen (specimen) Performing Organization Address [facility] Phone Number [address] [address] [phone] RENAL FUNCTION PANEL (10/24/2020 9:52 AM ASSISTANT SURVEYOR) Pathologist Sig nature Glucose 85 70 - 100 mg/dL [facility] BUN 9 6 - 22 mg/dL [facility] Creatinine 0.61 0.60 - 1.10 [facility] mg/dL [facility] BUN/Creatinine Ratio 14.8 10.0 - 25.[address] [facility] Sodium 135 135 - 145 meq/L [facility] Potassium 3.6 3.5 - 5.3 meq/L [facility] Chloride 106 99 - 110 meq/L [facility] CO2 24 20 - 29 meq/L [facility] Anion Gap with K 9 6 - 20 meq/L [facility] Calcium 7.7 (L) 8.5 - 10.5 mg/dL [facility] Phosphorus 2.1 (L) 2.5 - 4.5 mg/dL [facility] Albumin 2.1 (L) 3.5 - 5.0 g/dL [facility] Corrected Calcium 9.2 8.5 - 10.5 mg/dL [facility] Age [address] [facility] eGFR Non- >90 >=60 [facility] Gu[place]ian mL/min/1.73m2 [facility] eGFR >90 >=60 [facility] mL/min/1.73m2 CLINIC Specimen Blood - Blood specimen (specimen) Performing Organization Address City/[facility] Phone Number [address] [address] MAGNESIUM (10/24/2020 9:52 AM ASSISTANT SURVEYOR) Pathologist Sig nature Magnesium 1.9 1.8 - 2.4 mg/dL [facility] Specimen Blood - Blood specimen (specimen) Performing Organization Address [facility] Phone Number [address] [address] PROTIME/INR (10/24/2020 9:52 AM ASSISTANT SURVEYOR) Pathologist Sig nature Protime 25.8 (H) 12.0 - 14.[address] [facility] INR 2.4 2.0 - 3.[address] [facility] Specimen Blood - Blood specimen (specimen) Narrative Performed At Normal INR reference range (patients not on oral [facility] anticoagulants) 0.9-1.1. INR Standard Intensity = (2.0 - 3.0) INR Higher Intensity = (2.5 - 3.5) Performing Organization Address [facility] Phone Number [address] [address] [phone] GLUCOSE BY METER, POCT (10/24/2020 6:41 AM ASSISTANT SURVEYOR) Pathologist Sig nature Glucose POC 217 (H) 70 - 99 mg/dL [facility] Specimen Blood - Blood specimen (specimen) Performing Organization Address [facility] Phone Number [address] [address] GLUCOSE BY METER, POCT (10/23/2020 5:43 PM ASSISTANT SURVEYOR) Pathologist Sig nature Glucose POC 97 70 - 99 mg/dL [facility] Specimen Blood - Blood specimen (specimen) Performing Organization Address [facility] Number [address] [address] GLUCOSE BY METER, POCT (10/23/2020 11:04 AM ASSISTANT SURVEYOR) Pathologist Sig nature Glucose POC 175 (H) 70 - 99 mg/dL [facility] Specimen Blood - Blood specimen (specimen) Performing Organization Address [facility] Phone Number [address] [address] GLUCOSE BY METER, POCT (10/23/2020 5:20 AM ASSISTANT SURVEYOR) Pathologist Sig nature Glucose POC 145 (H) 70 - 99 mg/dL [facility] Specimen Blood - Blood specimen (specimen) Performing Organization Address City/State/Zipcode Phone Number [facility] [address] [place] [address] LAB ONLY-COMPLETE BLOOD COUNT WITH DIFFERENTIAL (10/23/2020 4:56 AM ASSISTANT SURVEYOR) Pathologist Sig nature WBC 5.5 4.0 - 11.0 K/uL [facility] RBC 4.46 3.80 - 5.30 [facility] M/uL [facility] Hemoglobin 12.7 11.5 - 15.8 [facility] g/dL [facility] Hematocrit 38.7 35.0 - 45.0 % [facility] MCV 86.8 80.0 - 98.[address] [facility] MCH 28.5 25.5 - 34.[address] [facility] MCHC 32.8 31.5 - 36.5 [facility] g/dL [facility] RDW-CV 16.2 (H) 11.5 - 15.5 % [facility] RDW-SD 50.7 (H) 35.5 - 50.[address] [facility] Platelet Count 100 (L) 140 - 400 K/uL [facility] MPV 12.1 (H) 8.5 - 12.[address] [facility] Seg Neut Absolute 4.2 1.8 - 8.0 K/uL [facility] Lymphocytes Absolute 0.3 (L) 0.8 - 4.1 K/uL [facility] Monocytes Absolute 0.9 0.0 - 1.0 K/uL [facility] Eosinophils Absolute 0.1 0.0 - 0.7 K/uL [facility] Basophil Absolute 0.0 0.0 - 0.2 K/uL [facility] Immature Granulocyte 0.02 0.00 - 0.06 [facility] Absolute K/uL [facility] Neutrophils Abs. 4,200 /uL [facility] (Segs and Bands) [facility] Neutrophils Percent 77.2 % [facility] Lymphocytes Percent 5.3 % [facility] Monocytes Percent 15.6 % [facility] Immature Granulocyte 0.4 % [facility] Percent CLINIC Eosinophils Percent 1.3 % [facility] Basophil Percent 0.2 % [facility] Nucleated RBC 0 /[address] [facility] Specimen Blood - Blood specimen (specimen) Performing Organization Address [facility] Phone Number [address] [address] RENAL FUNCTION PANEL (10/23/2020 4:56 AM ASSISTANT SURVEYOR) Pathologist Sig nature Glucose 148 (H) 70 - 100 mg/dL [facility] BUN 7 6 - 22 mg/dL [facility] Creatinine 0.62 0.60 - 1.10 [facility] mg/dL [facility] BUN/Creatinine Ratio 11.3 10.0 - 25.[address] [facility] Sodium 136 135 - 145 meq/L [facility] Potassium 3.9 3.5 - 5.3 meq/L [facility] Chloride 106 99 - 110 meq/L [facility] CO2 23 20 - 29 meq/L [facility] Anion Gap with K 11 6 - 20 meq/L [facility] Calcium 7.6 (L) 8.5 - 10.5 mg/dL [facility] Phosphorus 2.0 (L) 2.5 - 4.5 mg/dL [facility] Albumin 2.3 (L) 3.5 - 5.0 g/dL [facility] Corrected Calcium 9.0 8.5 - 10.5 mg/dL [facility] Age [address] [facility] eGFR Non- >90 >=60 [facility] [place] mL/min/1.73m2 [facility] eGFR >90 >=60 [facility] mL/min/1.73m2 CLINIC Specimen Blood - Blood specimen (specimen) Performing Organization Address [facility] Phone Number [address] [address] MAGNESIUM (10/23/2020 4:56 AM ASSISTANT SURVEYOR) Pathologist Sig nature Magnesium 1.5 (L) 1.8 - 2.4 mg/dL [facility] Specimen Blood - Blood specimen (specimen) Performing Organization Address [facility] Phone Number [address] [address] PROTIME/INR (10/23/2020 4:56 AM ASSISTANT SURVEYOR) Pathologist Sig nature Protime 24.4 (H) 12.0 - 14.[address] [facility] INR 2.2 2.0 - 3.[address] [facility] Specimen Blood - Blood specimen (specimen) Narrative Performed At Normal INR reference range (patients not on oral [facility] anticoagulants) 0.9-1.1. INR Standard Intensity = (2.0 - 3.0) INR Higher Intensity = (2.5 - 3.5) Performing Organization Address [address] [address] [phone] VANCOMYCIN TROUGH (10/23/2020 4:56 AM ASSISTANT SURVEYOR) [facility] Vancomycin Trough 18.8 10.0 - 20.0 ug/mL [facility] Specimen Blood - Blood specimen (specimen) Performing Organization [address] [address] GLUCOSE BY METER, POCT (10/22/2020 9:06 PM ASSISTANT SURVEYOR) Pathologist [facility] Glucose POC 131 (H) 70 - 99 mg/dL [facility] Specimen Blood - Blood specimen (specimen) Performing Organization Address [address] [address] GLUCOSE BY METER, POCT (10/22/2020 4:26 PM ASSISTANT SURVEYOR) [facility] Glucose POC 130 (H) 70 - 99 mg/dL [facility] Specimen Blood - Blood specimen (specimen) Performing Organization Address [address] [address] GLUCOSE BY METER, POCT (10/22/2020 11:54 AM ASSISTANT SURVEYOR) [facility] Recommend Glucose POC 156 (H) 70 - 99 mg/dL [facility] Specimen Blood - Blood specimen (specimen) Performing Organization [address] [address] LAB ONLY-COMPLETE BLOOD COUNT WITH DIFFERENTIAL (10/22/2020 7:13 AM ASSISTANT SURVEYOR) Pathologist Sig nature WBC 4.5 4.0 - 11.0 K/uL [facility] RBC 4.19 3.80 - 5.30 [facility] M/uL CLINIC Hemoglobin 11.8 11.5 - 15.8 [facility] g/dL CLINIC Hematocrit 36.3 35.0 - 45.0 % [facility] MCV 86.6 80.0 - 98.[address] [facility] MCH 28.2 25.5 - 34.[address] [facility] MCHC 32.5 31.5 - 36.5 [facility] g/dL [facility] RDW-CV 16.0 (H) 11.5 - 15.5 % [facility] RDW-SD 49.0 35.5 - 50.[address] [facility] Platelet Count 99 (L) 140 - 400 K/uL [facility] MPV 11.5 8.5 - 12.[address] [facility] Seg Neut Absolute 3.5 1.8 - 8.0 K/uL [facility] Lymphocytes Absolute 0.3 (L) 0.8 - 4.1 K/uL [facility] Monocytes Absolute 0.6 0.0 - 1.0 K/uL [facility] Eosinophils Absolute 0.1 0.0 - 0.7 K/uL [facility] Basophil Absolute 0.0 0.0 - 0.2 K/uL [facility] Immature Granulocyte 0.02 0.00 - 0.06 [facility] Absolute K/uL CLINIC Neutrophils Abs. 3,500 /uL [facility] (Segs and Bands) [facility] Neutrophils Percent 77.5 % [facility] Lymphocytes Percent 5.8 % [facility] Monocytes Percent 14.3 % [facility] Immature Granulocyte 0.4 % [facility] Percent CLINIC Eosinophils Percent 1.8 % [facility] Basophil Percent 0.2 % [facility] Nucleated RBC 0 /[address] [facility] Specimen Blood - Blood specimen (specimen) Performing Organization Address City/State/Zipcode Phone Number [address] [address] RENAL FUNCTION PANEL (10/22/2020 7:13 AM ASSISTANT SURVEYOR) Pathologist Sig nature Glucose 172 (H) 70 - 100 mg/dL [facility] BUN 7 6 - 22 mg/dL [facility] Creatinine 0.64 0.60 - 1.10 [facility] mg/dL [facility] BUN/Creatinine Ratio 10.9 10.0 - 25.[address] [facility] Sodium 136 135 - 145 meq/L [facility] Potassium 4.3 3.5 - 5.3 meq/L [facility] Chloride 107 99 - 110 meq/L [facility] CO2 23 20 - 29 meq/L [facility] Anion Gap with K 10 6 - 20 meq/L [facility] Calcium 7.3 (L) 8.5 - 10.5 mg/dL [facility] Phosphorus 1.6 (L) 2.5 - 4.5 mg/dL [facility] Albumin 2.1 (L) 3.5 - 5.0 g/dL [facility] Corrected Calcium 8.8 8.5 - 10.5 mg/dL [facility] Age [address] [facility] eGFR Non- 89 >=60 [facility] [place] mL/min/1.73m2 [facility] eGFR >90 >=60 [facility] mL/min/1.73m2 [facility] Specimen Blood - Blood specimen (specimen) Performing Organization Address [facility] Phone Number [address] [phone] MAGNESIUM (10/22/2020 7:13 AM ASSISTANT SURVEYOR) Pathologist Sig nature Magnesium 1.8 1.8 - 2.4 mg/dL [facility] Specimen Blood - Blood specimen (specimen) Performing Organization Address [facility] Phone Number [address] [address] PROTIME/INR (10/22/2020 7:13 AM ASSISTANT SURVEYOR) Pathologist Sig nature Protime 23.4 (H) 12.0 - 14.[address] [facility] INR 2.1 2.0 - 3.[address] [facility] Specimen Blood - Blood specimen (specimen) Narrative Performed At Normal INR reference range (patients not on oral [facility] anticoagulants) 0.9-1.1. INR Standard Intensity = (2.0 - 3.0) INR Higher Intensity = (2.5 - 3.5) Performing Organization Address [facility] Phone Number [address] [address] GLUCOSE BY METER, POCT (10/22/2020 5:34 AM ASSISTANT SURVEYOR) Pathologist Sig nature Glucose POC 185 (H) 70 - 99 mg/dL [facility] Specimen Blood - Blood specimen (specimen) Performing Organization Address [facility] Phone Number [address] [address] GLUCOSE BY METER, POCT (10/21/2020 9:09 PM ASSISTANT SURVEYOR) Pathologist Sig nature Glucose POC 182 (H) 70 - 99 mg/dL [facility] Specimen Blood - Blood specimen (specimen) Performing Organization Address [facility] Number [address] [address] GLUCOSE BY METER, POCT (10/21/2020 5:16 PM ASSISTANT SURVEYOR) Pathologist Sig nature Glucose POC 271 (H) 70 - 99 mg/dL [facility] Specimen Blood - Blood specimen (specimen) Performing Organization Address [facility] Number [address] [address] XRAY CHEST PA AND LATERAL (10/21/2020 1:31 PM ASSISTANT SURVEYOR) Specimen Narrative Performed At [facility] Patient Name: BLAIR STAFFORD Date of : 1940 Procedure: XRAY CHEST PA AND LATERAL Date of Service: 10/21/2020 EXAM: XRAY CHEST PA AND LATERAL INDICATION:Cough. COMPARISON(S): Chest CT from 07/18/2020. FINDINGS/IMPRESSION: The cardiac silhouette is normal in size. There is mirtha cified atherosclerosis of the thoracic aorta. There is a 1.3 cm nodular opacity within the mid right lung which likely corresponds wit h the hypermetabolic nodule in the periphery of the right up per lobe on the prior PET/CT from 07/27/2020. No additional pulmonary n odules are identified. No focal airspace consolidation. No pneumo thorax or pleural effusion. Finalized by: Richie Pinto MD on 10/21 1:58 PM ASSISTANT SURVEYOR Patient/Procedure Information: [facility] MRN/LETA: [id number] Order Number: [id number] Accession Number: [id number] Ordering Provider: GERTRUDE THOMAS Authorizing Provider: GERTRUDE THOMAS Procedure Note Interface, Radiantres - 10/21/2020 2:01 PM ASSISTANT SURVEYOR Patient Name: BLAIR STAFFORD Date of : 1940 Procedure: XRAY CHEST PA AND LATERAL Date of Service: 10/21/2020 EXAM: XRAY CHEST PA AND LATERAL INDICATION:Cough. COMPARISON(S): Chest CT from 07/18/2020. FINDINGS/IMPRESSION: The cardiac silhouette is normal in size . There is calcified atherosclerosis of the thoracic aorta. There is a 1.3 cm nodular opacity within the mid right lung which likely corresponds with the hypermetabolic nodule in the periphery of the right upp er lobe on the prior PET/CT from 07/27/2020. No additional pulmonary nodules are identified. No focal airspace consolidation. No pneumothorax or pleural effusion. Finalized by: Richie Pinto MD on 10/21 1:58 PM ASSISTANT SURVEYOR Patient/Procedure Information: [facility] MRN/LETA: [id number] Order Number: [id number] Accession Number: [id number] Ordering Provider: GERTRUDE TOHMAS Authorizing Provider: GERTRUDE THOMAS Performing Organization Address [facility] Phone Number [id number] GLUCOSE BY METER, POCT (10/21/2020 11:18 AM ASSISTANT SURVEYOR) Pathologist Sig nature Glucose POC 142 (H) 70 - 99 mg/dL [facility] Specimen Blood - Blood specimen (specimen) Performing Organization Address [facility] Phone Number [address] [phone] C-REACTIVE PROTEIN (INFLAMMATION) (10/21/2020 6:50 AM ASSISTANT SURVEYOR) Pathologist Sig nature CRP 57.0 (H) 0.0 - 8.0 mg/L [facility] Specimen Blood - Blood specimen (specimen) Performing Organization Address [facility]/Zipcode Phone Number [facility] [address] [place] [address] ESR (10/21/2020 6:50 AM ASSISTANT SURVEYOR) [facility] ESR 40 (H) 0 - 29 mm/Hr [facility] Specimen Blood - Blood specimen (specimen) Narrative Performed At This result was obtained with an ESR instrument that i s not [facility] based on the standard Westergren method. The sensitivi ty and specificity of this method for various disease states may be different from the standard Westergren m ethod. Performing Organization Address [facility] Phone Number [facility] [address] [place] [address] LAB ONLY-COMPLETE BLOOD COUNT WITH DIFFERENTIAL (10/21/2020 6:50 AM ASSISTANT SURVEYOR) [facility] WBC 4.2 4.0 - 11.0 K/uL [facility] RBC 4.09 3.80 - 5.30 [facility] M/uL CLINIC Hemoglobin 11.6 11.5 - 15.8 [facility] g/dL [facility] Hematocrit 35.4 35.0 - 45.0 % [facility] MCV 86.6 80.0 - 98.[address] [facility] MCH 28.4 25.5 - 34.[address] [facility] MCHC 32.8 31.5 - 36.5 [facility] g/dL [facility] RDW-CV 15.9 (H) 11.5 - 15.5 % [facility] RDW-SD 49.3 35.5 - 50.[address] [facility] Platelet Count 91 (L) 140 - 400 K/uL [facility] MPV 12.3 (H) 8.5 - 12.[address] [facility] Seg Neut Absolute 3.3 1.8 - 8.0 K/uL [facility] Lymphocytes Absolute 0.3 (L) 0.8 - 4.1 K/uL [facility] Monocytes Absolute 0.5 0.0 - 1.0 K/uL [facility] Eosinophils Absolute 0.1 0.0 - 0.7 K/uL [facility] Basophil Absolute 0.0 0.0 - 0.2 K/uL [facility] Immature Granulocyte 0.02 0.00 - 0.06 [facility] Absolute K/uL [facility] Neutrophils Abs. 3,300 /uL [facility] (Segs and Bands) [facility] Neutrophils Percent 77.6 % [facility] Lymphocytes Percent 7.4 % [facility] Monocytes Percent 12.6 % [facility] Immature Granulocyte 0.5 % [facility] Percent CLINIC Eosinophils Percent 1.7 % [facility] Basophil Percent 0.2 % [facility] Nucleated RBC 0 /[address] [facility] Specimen Blood - Blood specimen (specimen) Performing Organization Address City/[facility] [place] [address] RENAL FUNCTION PANEL (10/21/2020 6:50 AM ASSISTANT SURVEYOR) Pathologist [facility] Glucose 204 (H) 70 - 100 mg/dL [facility] BUN 6 6 - 22 mg/dL [facility] Creatinine 0.58 (L) 0.60 - 1.10 [facility] mg/dL [facility] BUN/Creatinine Ratio 10.3 10.0 - 25.[address] [facility] Sodium 136 135 - 145 meq/L [facility] Potassium 3.3 (L) 3.5 - 5.3 meq/L [facility] Chloride 106 99 - 110 meq/L [facility] CO2 19 (L) 20 - 29 meq/L [facility] Anion Gap with K 14 6 - 20 meq/L [facility] Calcium 7.0 (L) 8.5 - 10.5 [facility] mg/dL [facility] Phosphorus 3.7 2.5 - 4.5 mg/dL [facility] Albumin 2.2 (L) 3.5 - 5.0 g/dL [facility] Corrected Calcium 8.4 (L) 8.5 - 10.5 [facility] mg/dL [facility] Age [address] [facility] eGFR Non- >90 >=60 [facility] [place] mL/min/1.73m2 [facility] eGFR >90 >=60 [facility] mL/min/1.73m2 [facility] Specimen Blood - Blood specimen (specimen) Performing Organization Address City/[facility]/Zipcode Phone Number [address] [address] [phone] MAGNESIUM (10/21/2020 6:50 AM ASSISTANT SURVEYOR) Pathologist Sig nature Magnesium 1.7 (L) 1.8 - 2.4 mg/dL [facility] Specimen Blood - Blood specimen (specimen) Performing Organization Address [facility] Number [address] [address] PROTIME/INR (10/21/2020 6:50 AM ASSISTANT SURVEYOR) Pathologist Sig nature Protime 22.1 (H) 12.0 - 14.[address] [facility] INR 2.0 2.0 - 3.[address] [facility] Specimen Blood - Blood specimen (specimen) Narrative Performed At Normal INR reference range (patients not on oral [facility] anticoagulants) 0.9-1.1. INR Standard Intensity = (2.0 - 3.0) INR Higher Intensity = (2.5 - 3.5) Performing Organization Address [facility] Number [address] [address] GLUCOSE BY METER, POCT (10/21/2020 6:05 AM ASSISTANT SURVEYOR) Pathologist Sig nature Glucose POC 177 (H) 70 - 99 mg/dL [facility] Specimen Blood - Blood specimen (specimen) Performing Organization Address [facility] Number [address] [address] GLUCOSE BY METER, POCT (10/20/2020 8:52 PM ASSISTANT SURVEYOR) Pathologist Sig nature Glucose POC 82 70 - 99 mg/dL [facility] Specimen Blood - Blood specimen (specimen) Performing Organization [address] [address] GLUCOSE BY METER, POCT (10/20/2020 5:02 PM ASSISTANT SURVEYOR) Pathologist Sig nature Glucose POC 289 (H) 70 - 99 mg/dL [facility] Specimen Blood - Blood specimen (specimen) Performing Organization Address [facility] [address] [place] [address] XRAY HAND MIN 3 VIEWS RT (10/20/2020 12:33 PM ASSISTANT SURVEYOR) Specimen Narrative Performed At [facility] Patient Name: BLAIR STAFFORD Date of : 1940 Procedure: XRAY HAND MIN 3 VIEWS RT Date of Service: 10/20/2020 EXAM: XRAY HAND MIN 3 VIEWS RT INDICATION:Rt 2nd finger inflamed. COMPARISON(S): None Available FINDING: Bony irregularity and/or fracture second digit distal phalanx. Some soft tissue injury changes are also present correlate for r ecent trauma versus infection. Finalized by: Noe Ortiz MD on 10/20/2020 3:43 PM ASSISTANT SURVEYOR Patient/Procedure Information: [facility] MRN/LETA: [id number] Order Number: [id number] Accession Number: [id number] Ordering Provider: GERTRUDE THOMAS Authorizing Provider: GERTRUDE THOMAS Procedure Note Interface, Radiantres - 10/20/2020 3:45 PM ASSISTANT SURVEYOR Patient Name: BLAIR STAFFORD Date of : 1940 Procedure: XRAY HAND MIN 3 VIEWS RT Date of Service: 10/20/2020 EXAM: XRAY HAND MIN 3 VIEWS RT INDICATION:Rt 2nd finger inflamed. COMPARISON(S): None Available FINDING: Bony irregularity and/or fracture second digit distal phalanx. Some soft tissue injury changes are also present correlate for recent trauma versus infection. Finalized by: Noe Ortiz MD on 10/20/2020 3:43 PM ASSISTANT SURVEYOR Patient/Procedure Information: [facility] MRN/LETA: [id number] Order Number: [id number] Accession Number: [id number] Ordering Provider: GERTRUDE THOMAS Authorizing Provider: GERTRUDE THOMAS Performing Organization Address City/[facility]/Zipcode Phone Number [id number] GLUCOSE BY METER, POCT (10/20/2020 11:59 AM ASSISTANT SURVEYOR) Pathologist [facility] Glucose POC 137 (H) 70 - 99 mg/dL [facility] Specimen Blood - Blood specimen (specimen) Performing Organization Address City/State/Zipcode Phone Number [facility] [address] [place] [address] LAB ONLY-COMPLETE BLOOD COUNT WITH DIFFERENTIAL (10/20/2020 7:09 AM ASSISTANT SURVEYOR) [place] [facility] [place] WBC 5.0 4.0 - 11.0 K/uL [facility] RBC 4.18 3.80 - 5.30 [facility] M/uL CLINIC Hemoglobin 11.9 11.5 - 15.8 [facility] g/dL CLINIC Hematocrit 36.2 35.0 - 45.0 % [facility] MCV 86.6 80.0 - 98.[address] [facility] MCH 28.5 25.5 - 34.[address] [facility] MCHC 32.9 31.5 - 36.5 [facility] g/dL [facility] RDW-CV 15.7 (H) 11.5 - 15.5 % [facility] RDW-SD 48.6 35.5 - 50.[address] [facility] Platelet Count 104 (L) 140 - 400 K/uL [facility] MPV 12.9 (H) 8.5 - 12.[address] [facility] Seg Neut Absolute 4.0 1.8 - 8.0 K/uL [facility] Lymphocytes Absolute 0.4 (L) 0.8 - 4.1 K/uL [facility] Monocytes Absolute 0.5 0.0 - 1.0 K/uL [facility] Eosinophils Absolute 0.1 0.0 - 0.7 K/uL [facility] Basophil Absolute 0.0 0.0 - 0.2 K/uL [facility] Immature Granulocyte 0.02 0.00 - 0.06 [facility] Absolute K/uL CLINIC Neutrophils Abs. 4,000 /uL [facility] (Segs and Bands) [facility] Neutrophils Percent 81.2 % [facility] Lymphocytes Percent 7.8 % [facility] Monocytes Percent 9.4 % [facility] Immature Granulocyte 0.4 % [facility] Percent CLINIC Eosinophils Percent 1.0 % [facility] Basophil Percent 0.2 % [facility] Nucleated RBC 0 /[address] [facility] Specimen Blood - Blood specimen (specimen) Performing Organization Address City/State/Zipcode Phone Number [address] [address] RENAL FUNCTION PANEL (10/20/2020 7:09 AM ASSISTANT SURVEYOR) Pathologist Sig nature Glucose 157 (H) 70 - 100 mg/dL [facility] BUN 7 6 - 22 mg/dL [facility] Creatinine 0.61 0.60 - 1.10 [facility] mg/dL [facility] BUN/Creatinine Ratio 11.5 10.0 - 25.[address] [facility] Sodium 135 135 - 145 meq/L [facility] Potassium 3.7 3.5 - 5.3 meq/L [facility] Chloride 106 99 - 110 meq/L [facility] CO2 22 20 - 29 meq/L [facility] Anion Gap with K 11 6 - 20 meq/L [facility] Calcium 7.1 (L) 8.5 - 10.5 mg/dL [facility] Phosphorus 1.8 (L) 2.5 - 4.5 mg/dL [facility] Albumin 2.2 (L) 3.5 - 5.0 g/dL [facility] Corrected Calcium 8.5 8.5 - 10.5 mg/dL [facility] Age [address] [facility] eGFR Non- >90 >=60 [facility] [place] mL/min/1.73m2 [facility] eGFR >90 >=60 [facility] mL/min/1.73m2 CLINIC Specimen Blood - Blood specimen (specimen) Performing Organization Address [facility] Phone Number [address] [address] MAGNESIUM (10/20/2020 7:09 AM ASSISTANT SURVEYOR) Pathologist Sig nature Magnesium 1.5 (L) 1.8 - 2.4 mg/dL [facility] Specimen Blood - Blood specimen (specimen) Performing Organization Address [facility] Phone Number [address] [address] PROTIME/INR (10/20/2020 7:09 AM ASSISTANT SURVEYOR) Pathologist Sig nature Protime 22.8 (H) 12.0 - 14.[address] [facility] INR 2.0 2.0 - 3.[address] [facility] Specimen Blood - Blood specimen (specimen) Narrative Performed At Normal INR reference range (patients not on oral [facility] anticoagulants) 0.9-1.1. INR Standard Intensity = (2.0 - 3.0) INR Higher Intensity = (2.5 - 3.5) Performing Organization Address [facility] Number [address] [address] GLUCOSE BY METER, POCT (10/20/2020 5:53 AM ASSISTANT SURVEYOR) Pathologist Sig nature Glucose POC 153 (H) 70 - 99 mg/dL [facility] Specimen Blood - Blood specimen (specimen) Performing Organization Address [address] [address] GLUCOSE BY METER, POCT (10/19/2020 9:06 PM ASSISTANT SURVEYOR) Pathologist Sig nature Glucose POC 223 (H) 70 - 99 mg/dL [facility] Specimen Blood - Blood specimen (specimen) Performing Organization Address [facility] Number [address] [address] GLUCOSE BY METER, POCT (10/19/2020 5:44 PM ASSISTANT SURVEYOR) Pathologist Sig nature Glucose POC 185 (H) 70 - 99 mg/dL [facility] Specimen Blood - Blood specimen (specimen) Performing Organization Address [facility] Number [address] [phone] GLUCOSE BY METER, POCT (10/19/2020 5:23 PM ASSISTANT SURVEYOR) Pathologist Sig nature Glucose POC 168 (H) 70 - 99 mg/dL [facility] Specimen Blood - Blood specimen (specimen) Performing Organization Address [facility] Number [address] [address] [phone] GLUCOSE BY METER, POCT (10/19/2020 11:55 AM ASSISTANT SURVEYOR) Pathologist Sig nature Glucose POC 193 (H) 70 - 99 mg/dL [facility] Specimen Blood - Blood specimen (specimen) Performing Organization Address City/[facility]/Zipcode Phone Number [facility] [address] [place] [address] GLUCOSE BY METER, POCT (10/19/2020 5:42 AM ASSISTANT SURVEYOR) Pathologist [facility] Glucose POC 176 (H) 70 - 99 mg/dL [facility] Specimen Blood - Blood specimen (specimen) Performing Organization Address City/[facility] Phone Number [facility] [address] [place] [address] [phone] LAB ONLY-COMPLETE BLOOD COUNT WITH DIFFERENTIAL (10/19/2020 5:30 AM ASSISTANT SURVEYOR) Pathologist [facility] WBC 6.0 4.0 - 11.0 K/uL [facility] RBC 4.05 3.80 - 5.30 [facility] M/uL CLINIC Hemoglobin 11.4 (L) 11.5 - 15.8 [facility] g/dL CLINIC Hematocrit 34.6 (L) 35.0 - 45.0 % [facility] MCV 85.4 80.0 - 98.[address] [facility] MCH 28.1 25.5 - 34.[address] [facility] MCHC 32.9 31.5 - 36.5 [facility] g/dL [facility] RDW-CV 15.3 11.5 - 15.5 % [facility] RDW-SD 46.7 35.5 - 50.[address] [facility] Platelet Count 94 (L) 140 - 400 K/uL [facility] MPV 12.4 (H) 8.5 - 12.[address] [facility] Seg Neut Absolute 5.0 1.8 - 8.0 K/uL [facility] Lymphocytes Absolute 0.4 (L) 0.8 - 4.1 K/uL [facility] Monocytes Absolute 0.5 0.0 - 1.0 K/uL [facility] Eosinophils Absolute 0.1 0.0 - 0.7 K/uL [facility] Basophil Absolute 0.0 0.0 - 0.2 K/uL [facility] Immature Granulocyte 0.02 0.00 - 0.06 [facility] Absolute K/uL CLINIC Neutrophils Abs. 5,000 /uL [facility] (Segs and Bands) [facility] Neutrophils Percent 83.2 % [facility] Lymphocytes Percent 6.4 % [facility] Monocytes Percent 9.1 % [facility] Immature Granulocyte 0.3 % [facility] Percent CLINIC Eosinophils Percent 0.8 % [facility] Basophil Percent 0.2 % [facility] Nucleated RBC 0 /[address] [facility] Specimen Blood - Blood specimen (specimen) Performing Organization Address City/[facility] Phone Number [address] [address] [phone] RENAL FUNCTION PANEL (10/19/2020 5:30 AM ASSISTANT SURVEYOR) Pathologist [facility] nature Glucose 203 (H) 70 - 100 mg/dL [facility] BUN 8 6 - 22 mg/dL [facility] Creatinine 0.64 0.60 - 1.10 [facility] mg/dL [facility] BUN/Creatinine Ratio 12.5 10.0 - 25.[address] [facility] Sodium 133 (L) 135 - 145 meq/L [facility] Potassium 3.0 (L) 3.5 - 5.3 meq/L [facility] Chloride 100 99 - 110 meq/L [facility] CO2 27 20 - 29 meq/L [facility] Anion Gap with K 9 6 - 20 meq/L [facility] Calcium 7.3 (L) 8.5 - 10.5 mg/dL [facility] Phosphorus 2.2 (L) 2.5 - 4.5 mg/dL [facility] Albumin 2.3 (L) 3.5 - 5.0 g/dL [facility] Corrected Calcium 8.7 8.5 - 10.5 mg/dL [facility] Age [address] [facility] eGFR Non- 89 >=60 [facility] [place] mL/min/1.73m2 [facility] eGFR >90 >=60 [facility] mL/min/1.73m2 [facility] Specimen Blood - Blood specimen (specimen) Performing Organization Address [facility] Phone Number [address] [address] [phone] MAGNESIUM (10/19/2020 5:30 AM ASSISTANT SURVEYOR) Pathologist Sig nature Magnesium 2.0 1.8 - 2.4 mg/dL [facility] Specimen Blood - Blood specimen (specimen) Performing Organization Address [facility] Number [address] [address] [phone] PROTIME/INR (10/19/2020 5:30 AM ASSISTANT SURVEYOR) Pathologist Sig nature Protime 22.7 (H) 12.0 - 14.[address] [facility] INR 2.0 2.0 - 3.[address] [facility] Specimen Blood - Blood specimen (specimen) Narrative Performed At Normal INR reference range (patients not on oral [facility] anticoagulants) 0.9-1.1. INR Standard Intensity = (2.0 - 3.0) INR Higher Intensity = (2.5 - 3.5) Performing Organization [facility] Number [address] [address] [phone] GLUCOSE BY METER, POCT (10/18/2020 9:34 PM ASSISTANT SURVEYOR) Pathologist Sig nature Glucose POC 219 (H) 70 - 99 mg/dL [facility] Specimen Blood - Blood specimen (specimen) Performing Organization Address [facility] Number [address] [address] GLUCOSE BY METER, POCT (10/18/2020 5:18 PM ASSISTANT SURVEYOR) Pathologist Sig nature Glucose POC 166 (H) 70 - 99 mg/dL [facility] Specimen Blood - Blood specimen (specimen) Performing Organization Address [facility] Number [address] [address] [phone] PHOSPHORUS (10/18/2020 4:19 PM ASSISTANT SURVEYOR) Pathologist Sig nature Phosphorus 1.8 (L) 2.5 - 4.5 mg/dL [facility] Specimen Blood - Blood specimen (specimen) Performing Organization Address [facility] Number [address] [address] [phone] LAB ONLY-MANUAL DIFFERENTIAL (10/18/2020 4:19 PM ASSISTANT SURVEYOR) Platelet Morphology Large Platelets [facility] Present [facility] Specimen Blood - Blood specimen (specimen) Performing Organization Address City/State/Zipcode Phone Number [facility] [place] [address] LAB ONLY-COMPLETE BLOOD COUNT WITH DIFFERENTIAL (10/18/2020 4:19 PM ASSISTANT SURVEYOR) Pathologist Sig nature WBC 7.8 4.0 - 11.0 K/uL [facility] RBC 4.37 3.80 - 5.30 [facility] M/uL CLINIC Hemoglobin 12.2 11.5 - 15.8 [facility] g/dL [facility] Hematocrit 37.1 35.0 - 45.0 % [facility] MCV 84.9 80.0 - 98.[address] [facility] MCH 27.9 25.5 - 34.[address] [facility] MCHC 32.9 31.5 - 36.5 [facility] g/dL [facility] RDW-CV 15.2 11.5 - 15.5 % [facility] RDW-SD 46.1 35.5 - 50.[address] [facility] Platelet Count 93 (L) 140 - 400 K/uL [facility] MPV 12.7 (H) 8.5 - 12.[address] [facility] Seg Neut Absolute 6.7 1.8 - 8.0 K/uL [facility] Lymphocytes Absolute 0.4 (L) 0.8 - 4.1 K/uL [facility] Monocytes Absolute 0.7 0.0 - 1.0 K/uL [facility] Eosinophils Absolute 0.0 0.0 - 0.7 K/uL [facility] Basophil Absolute 0.0 0.0 - 0.2 K/uL [facility] Immature Granulocyte 0.02 0.00 - 0.06 [facility] Absolute K/uL CLINIC Neutrophils Abs. 6,700 /uL [facility] (Segs and Bands) [facility] Neutrophils Percent 85.7 % [facility] Lymphocytes Percent 5.0 % [facility] Monocytes Percent 8.6 % [facility] Immature Granulocyte 0.3 % [facility] Percent CLINIC Eosinophils Percent 0.3 % [facility] Basophil Percent 0.1 % [facility] Nucleated RBC 0 /[address] [facility] Specimen Blood - Blood specimen (specimen) Performing Organization Address City/[facility]/Zipcode Phone Number [facility] [address] [place] [address] MAGNESIUM (10/18/2020 4:19 PM ASSISTANT SURVEYOR) Pathologist Sig nature Magnesium 1.5 (L) 1.8 - 2.4 mg/dL [facility] Specimen Blood - Blood specimen (specimen) Performing Organization Address City/[facility] Phone Number [facility] [address] [place] [address] COMPREHENSIVE METABOLIC PANEL (10/18/2020 4:19 PM ASSISTANT SURVEYOR) Pathologist Sig nature Glucose 204 (H) 70 - 100 mg/dL [facility] BUN 9 6 - 22 mg/dL [facility] Creatinine 0.66 0.60 - 1.10 [facility] mg/dL [facility] BUN/Creatinine Ratio 13.6 10.0 - 25.[address] [facility] Sodium 133 (L) 135 - 145 meq/L [facility] Potassium 3.2 (L) 3.5 - 5.3 meq/L [facility] Chloride 98 (L) 99 - 110 meq/L [facility] CO2 28 20 - 29 meq/L [facility] Anion Gap with K 10 6 - 20 meq/L [facility] Calcium 8.3 (L) 8.5 - 10.5 [facility] mg/dL [facility] Protein Total 6.6 6.0 - 8.2 g/dL [facility] Albumin 2.5 (L) 3.5 - 5.0 g/dL [facility] Alkaline Phosphatase 134 30 - 150 U/L [facility] AST - SGOT 17 0 - 35 U/L [facility] ALT - SGPT 8 0 - 55 U/L [facility] Bilirubin Total 1.2 0.2 - 1.2 mg/dL [facility] Corrected Calcium 9.5 8.5 - 10.5 [facility] mg/dL [facility] Age [address] [facility] eGFR Non- 86 >=60 [facility]AVE[facility] NANCY [place] mL/min/1.73m2 CLINIC eGFR >90 >=60 [facility] mL/min/1.73m2 CLINIC Specimen Blood - Blood specimen (specimen) Performing Organization Address City/[facility]/Zipcode Phone Number [address] [address] PROTIME/INR (10/18/2020 4:19 PM ASSISTANT SURVEYOR) Pathologist Sig nature Protime 22.1 (H) 12.0 - 14.[address] [facility] INR 2.0 2.0 - 3.[address] [facility] Specimen Blood - Blood specimen (specimen) Narrative Performed At Normal INR reference range (patients not on oral [facility] anticoagulants) 0.9-1.1. INR Standard Intensity = (2.0 - 3.0) INR Higher Intensity = (2.5 - 3.5) Performing Organization Address [facility] Phone Number [address] [address] documented in this encounter Visit Diagnoses Diagnosis Dehydration - Primary Osteomyelitis (HCC) Unspecified osteomyelitis, site unspecif ied Subacute osteomyelitis of right hand (HC C) Acute osteomyelitis, hand Type 2 diabetes mellitus with diabetic p eripheral angiopathy without gangrene, without long-term current use of insulin (HCC) Diarrhea, unspecified type Hypokalemia Hypopotassemia 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 ) Finger infection Unspecified local infection of skin and subcutaneous tissue Skin candidiasis Candidiasis of skin and nails Superior vena cava thrombosis (HCC) Acute venous embolism and thrombosis of other thoracic veins Essential hypertension, benign 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 Heterozygous factor V Leiden mutation (H CC) Primary hypercoagulable state Malignant neoplasm of head of pancreas ( HCC) Malignant neoplasm of head of pancreas 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, with fat layer exposed (HCC) Hypomagnesemia Disorders of magnesium metabolism Open wound Open wound(s) (multiple) of unspecified site(s), without mention of complication Hypophosphatemia Disorders of phosphorus metabolism Moderate protein-calorie malnutrition (H CC) Malnutrition of moderate degree Osteomyelitis of finger (HCC) Unspecified osteomyelitis, hand Thrombocytopenia (HCC) Thrombocytopenia, unspecified [facility] current use of anticoagulant t herapy Thymoma Benign neoplasm of thymus Pancreatic cancer (HCC) Malignant neoplasm of pancreas, part uns pecified Colon cancer (HCC) Malignant neoplasm of colon, unspecified site Weakness Other malaise and fatigue Diabetic ulcer of heel (HCC) Type II or unspecified type diabetes lei litus with other specified manifestations, not stated as uncontrolled Fatigue Other malaise and fatigue Type 2 diabetes mellitus with shrimp packer y disorder (HCC) Type II or unspecified type diabetes lei litus with peripheral circulatory disorders, not stated as uncontrolled documented in this encounter Discharge Diagnoses Not on filedocumented in this encounter Administered Medications Medication Order MAR Action Action Date Dose Rate Site .Anticoagulation (WARFARIN) therapy nurs ing reminder Anti-coag reminder, First dose on Sat10/19/20 at 1000, Until Discontinued acetaminophen (TYLENOL) tablet 500 mg Given 11/04/2020 12:31 PM ASSISTANT SURVEYOR 500 mg 500 mg, Oral, Every four hours prn, Starting Sat10/18/20 at 1542, Until Discontinued, mild pain, moderate pain, fever, Adult patients: Total dose of acetaminophen from all acetaminophen containing products should not exceed 4 grams (4000 mg) per day. Pediatric Patients 0 - 3 months: Maximum of 60 mg/kg/24 hours of acetaminophen. Pediatric Patients older than 3 months: Maximum of 75 mg/kg/24 hours of acetaminophen (Never exceeding 4 grams/day). , Given 10/29/2020 10:17 PM ASSISTANT SURVEYOR 500 mg Given 10/29/2020 6:12 AM ASSISTANT SURVEYOR 500 mg bisacodyl (DULCOLAX) suppository 10 mg 10 mg, Rectal, One time a day prn, Starting Sat 1 at 1547, Until Discontinued, constipation, Use second for constipatio n. If patient cannot take oral medications, use first for constipation., bismuth subsalicylate (PEPTO-BISMOL) ora l suspension (262 mg/15 mL) 30 mL 30 mL, Oral, Three times a day prn, Starting Sat at 1832, Until Discontinued, indigestion, 30 mL calcium carbonate (TUMS) chewable tablet 500 Given 8:22 AM CDT 500 mg mg 500 mg, Oral, Three times a day with meals, First dose on Sat11/18/20 at 0730, Until Discontinued carbohydrate 15 g Given 11/14/2020 12:30 PM CDT 15 g 15 g, Oral, PRN per parameter, Starting Sat10/18/20 at 1555, Until Discontinued, low blood glucose, Give 15 grams of carbohydrate if blood glucose is less than 70 mg/dL, patient is responsive and able to take food or oral meds. Recheck blood glucose in 15 minutes. Repeat 1 time and call MD. If recheck is greater than 70 mg/dL and able to take food or oral meds, give 15 gram carbohydrate if meal or snack due in more than an hour. Serve meal or snack if due in less than 1 hour. See hypoglycemia treatment on cardex. Sources of 15 grams carbohydrate: a. 4 oz of fruit juice or b. 4 oz of soda pop (NOT diet) or c. 1 tablespoon of honey, Given 11/12/2020 11:38 AM CDT 15 g cefepime (MAXIPIME) 2000 mg/20 mL in Given 11/18/2020 3:46 PM C DT 2,000 mg sterile water IV syringe 2,000 mg, IV, Every twelve hours, First dose (after last modification) on Sat10/26/20 at 0000, Until Discontinued, 20 mL, Administer over 5 minutes., Given 11/18/2020 3:27 AM CDT 2,000 mg Given 11/17/2020 5:28 PM CDT 2,000 mg dextrose 50% IV solution 50 mL 50 mL (25 g), IV, PRN per parameter, Starting 10/18 at 1555, Until Discontinued, low blood glucose, 50 mL, Give if blood glucose is less than 70 mg/dL, patient is unresponsive or NPO, a nd has IV access. Recheck blood glucose in 15 minutes and call MD. Repeat dose if r echeck less than 70 mg/dL and call MD. If recheck is greater than 70 mg/dL and abl e to take food or oral meds, give 15 gram carbohydrate if meal or snack due in mor e than an hour. Serve meal or snack if due in less than 1 hour. See hypoglycemia treatment on car dex., dextrose chewable tablet 16 g Given 11/16/2020 5:15 PM CDT 16 g 16 g (4 tablet), Oral, PRN per parameter, Starting Sat10/18/20 at 1555, Until Discontinued, low blood glucose, Chew before swallowing. Give 15 gram of carbohydrate if blood glucose is less than 70 mg/dL, patient is responsive and able to take food or oral meds. Recheck blood glucose in 15 minutes. Repeat 15 gram carbohydrate if recheck is less than 70 mg/dL and call MD. If recheck is greater than 70 mg/dL and able to take food or oral meds, give 15 gram carbohydrate if meal or snack due in more than an hour. Serve meal or snack if due in less than 1 hour. See hypoglycemia treatment on cardex. (Sources of 15 gram carbohydrate: 4 oz fruit juice or 4 oz soda pop (NOT diet) or 1 tablespoonful honey or 4 glucose tablets)., Given 10/24/2020 11:27 AM ASSISTANT SURVEYOR 16 g diphenoxylate-atropine (LOMOTIL) Given 11/18/2020 12:45 PM CDT 2 tablets 2.5-0.025 mg tablet 2 tablet 2 tablet, Oral, Four times a day, First dose (after last modification) on Sat11/15/20 at 2100, Until Discontinued, Maximum recommended dose: 8 tablets per day, Given 11/18/2020 8:22 AM CDT 2 tablets Given 11/17/2020 9:46 PM CDT 2 tablets gabapentin (NEURONTIN) capsule 600 mg Given 11/18/2020 8:22 AM CDT 600 mg 600 mg, Oral, Two times a day, First dose (after last modification) on Sat11/09/20 at 2100, Until Discontinued Given 11/17/2020 9:46 PM CDT 600 mg Given 11/17/2020 8:07 AM CDT 600 mg glipiZIDE ER (GLUCOTROL XL) extended release Given 8:22 AM CDT 5 mg tablet (24 hr) 5 mg 5 mg, Oral, DAILY, First dose on Sat10/19/20 at 0900, Until Discontinued, Tablet should not be crushed or chewed., Given 11/17/2020 8:09 AM CDT 5 mg Given 11/16/2020 10:30 AM CDT 5 mg glucagon for injection 1 mg vial 1 mg 1 mg, Intramuscular, PRN per parameter, Starting Sat at 1555, Until Discontinued, low blood glucose, Give if blood glucose less than 70 mg/dL, patient is unresponsive or NPO, and has no IV ac cess. Establish IV access. Recheck blood glucose in 15 minutes and call MD. If r echeck is greater than 70 mg/dL and able to take food or oral meds, give 15 gram car bohydrate if meal or snack due in more than an hour. Serve meals or snack if due in less than 1 ho ur. See hypoglycemia treatment on cardex. Reconstitute vial with 1 mL of sterile water for injection for reconstitution for a final concentra tion of 1 mg/mL. Shake vial gently. Use immediately and discard unused portion. Reconstitute with 1 mL of sterile water for injection to yield 1 mg/mL. Shake vial gently. Use immediately and discard unused portion., hEParin 100 units/ mL injection for Given 11/18/2020 5:59 AM CD T 300 Units heplock FLUSH 300 Units (3 mL), IV, Two times a day and prn, First dose on Sat10/23/20 at 1700, Until Discontinued, 3 mL, Flush PICC lumen with 10 mL sodium chloride 0.9% followed by heparin 300 units (100 units/mL) twice daily at 9197-5325 and after each use, Given 11/17/2020 5:30 PM CDT 300 Units Given 11/17/2020 5:07 AM CDT 300 Units HYDROmorphone (DILAUDID) injection solution Given 12/2020 2:37 PM ASSISTANT SURVEYOR 0.5 mg (conc: 0.5 mg/0.5mL) 0.5 mg 0.5 mg, IV, Every one hour prn, Starting Sat10/18/20 at 1553, Until Discontinued, moderate pain, 0.5 mL, for pain Scale 4 to 6 or pain not relieved by medications for Pain Scale 1 - 3, Given 10/26/2020 8:56 PM ASSISTANT SURVEYOR 0.5 mg Given 10/24/2020 8:18 PM ASSISTANT SURVEYOR 0.5 mg HYDROmorphone (DILAUDID) injection solution Given 11/09/2020 2: 23 PM CDT 1 mg (conc: 1 mg/mL) 1 mg 1 mg, IV, Every one hour prn, Starting Sat10/18/20 at 1553, Until Discontinued, severe pain, 1 mL, for pain Scale 7 or greater or pain not relieved by medications for Pain Scale 4 to 6, Given 11/08/2020 3:26 PM CDT 1 mg Given 10/25/2020 3:48 PM ASSISTANT SURVEYOR 1 mg HYDROmorphone (DILAUDID) tablet 2 mg Given 11/18/2020 2:26 PM CDT 2 mg 2 mg, Oral, Every six hours prn, Starting 11/06/20 at 1215, Until Discontinued, other (Specify), Before radiation, Give 1 dose 1 hour before radiation therapy, Given 11/16/2020 2:06 PM CDT 2 mg Given 11/11/2020 10:11 AM CDT 2 mg influenza HIGH DOSE virus vaccine tacos valent IM injection 0.7 mL 0.7 mL, Intramuscular, Prior to discharg e, 1 dose, Starting Sat10/19/20 at 0648, Until Discontinued, 0.7 mL, Message pharmacy when the dose is needed if not available on unit, insulin aspart (NovoLOG) SQ correction Given 11/18/2020 6:07 AM CDT 2 Units scale (Adult) 2-8 Units, Subcutaneous, Three times a day, First dose on Sat10/18/20 at 1730, Until Discontinued, 0.08 mL, Give this dose whether patient is eating or patient is NPO LOW DOSE insulin aspart (NovoLOG) subcutaneous correction scale Premeal Blood Glucose = Insulin Dose 150-199 2 units 200-249 3 units 250-299 5 units 300-349 7 units Over 349 8 units, Given 11/17/2020 5:31 PM CDT 2 Units Arm Right Right Upper TD Given 11/17/2020 5:07 AM CDT 2 Units iohexol (OMNIPAQUE) 350 mg/mL solution 5 0 mL 50 mL, IV, Now imaging, 1 dose, Starting Sat11/04/20 at 1458, Until Discontinued, 50 mL [id number]-[id number]-uxxoycy (CREON 12,000) Given 11/18/2020 12:46 PM CDT 1 capsule 12-38-60 KU capsule 1 capsule 1 capsule, Oral, Three times a day with meals, First dose on Sat10/18/20 at 1730, Until Discontinued, Administer with meals or snacks. Should NOT be crushed or chewed., Given 11/18/2020 8:22 AM CDT 1 capsule Given 11/17/2020 5:33 PM CDT 1 capsule loperamide (IMODIUM) capsule 4 mg Given 11/18/2020 12:45 PM CDT 4 mg 4 mg, Oral, Four times a day, First dose (after last modification) on Sat11/15/20 at 2100, Until Discontinued, Recommended maximum for children greater than 12 years and adults: 16 mg in 24 hours., Given 11/18/2020 8:22 AM CDT 4 mg Given 11/17/2020 9:45 PM CDT 4 mg metroNIDAZOLE (FLAGYL) tablet 500 mg Given 11/18/2020 3:46 PM CDT 500 mg 500 mg, Oral, Three times a day, First dose on Sat10/21/20 at 1700, Until Discontinued Given 11/18/2020 8:22 AM CDT 500 mg Given 11/17/2020 9:46 PM CDT 500 mg multivitamin therapeutic with minerals Given 11/17/2020 8:09 AM CDT 1 tablet (THERA-M) tablet 1 tablet 1 tablet, Oral, Daily, First dose on Sat10/19/20 at 0900, Until Discontinued Given 11/16/2020 10:30 AM CDT 1 tablet Given 11/15/2020 8:21 AM CDT 1 tablet nicotine (NICODERM) Applied 10/20/2020 8:25 AM ASSISTANT SURVEYOR 21 mg Arm Right Right 21mg/24hr patch Upper TD 21 mg (1 patch), Transdermal, DAILY, First dose on Sat10/19/20 at 0900, Until Discontinued, Administer over 24 Hours Applied 10/19/2020 9:10 AM ASSISTANT SURVEYOR 21 mg Left Shoulder Blade TD nystatin (NYAMYC) 012499 UNIT/GM powder Given 11/18/2020 8:23 AM CDT Apply externally, Two times a day, First dose on Sat11/05/20 at 1020, Until Discontinued, Apply under breasts and in skin folds,including groins., Given 11/17/2020 9:49 PM CDT Given 11/17/2020 10:43 AM CDT 1 application octreotide acetate (sandoSTATIN) injection Given 11/18 12:46 PM CDT 200 mcg solution 200 mcg 200 mcg, Subcutaneous, Every eight hours, First dose (after last modification) on Sat10/29/20 at 1200, Until Discontinued, 1 mL Given 11/18/2020 3:27 AM CDT 200 mcg Given 11/17/2020 9:47 PM CDT 200 mcg ondansetron (ZOFRAN) injection solution 4 mg Given 10/23/2020 12:26 PM ASSISTANT SURVEYOR 4 mg 4 mg, IV, Every four hours prn, Starting Sat10/18/20 at 1547, Until Discontinued, nausea, vomiting, 2 mL, Use FIRST. If ineffective after 15 minutes use prochlorperazine (COMPAZINE). If preference is to further dilute for IV administration: First draw up patient-specific dose, then dilute to 10 mL with 0.9% sodium chloride., Given 10/22/2020 5:31 PM ASSISTANT SURVEYOR 4 mg Given 10/21/2020 8:38 AM ASSISTANT SURVEYOR 4 mg phytonadione (vitamin K) tablet 200 mcg Given 11/18/2020 8:22 AM CDT 200 mcg 200 mcg, Oral, DAILY, First dose on Sat10/19/20 at 0900, Until Discontinued Given 11/17/2020 8:09 AM CDT 200 mcg Given 11/16/2020 10:30 AM CDT 200 mcg polyethyl glycol-propyl glycol (SYSTANE) Given 11/17/2020 9:48 PM CDT 1 drop ophthalmic solution 1 drop 1 drop, Both eyes, Every four hours prn, Starting Sat11/17/20 at 1740, Until Discontinued, dry eyes, 15 mL potassium chloride 20mEq in sodium New Bag 11/18/2020 5:45 AM CDT 50 mL/hr chloride 0.9% 1000 mL IV solution IV, at 50 mL/hr, Continuous, Starting Sat10/18/20 at 1700, Until Discontinued, 1,000 mL New Bag 11/17/2020 5:03 AM CDT 50 mL/hr New Bag 11/16/2020 10:37 AM CDT 50 mL/hr potassium chloride CR (KLOR-CON) tablet 8 mEq Given 11/18/2020 12:45 PM CDT 8 mEq 8 mEq, Oral, Three times a day with meals, First dose on Sat11/17/20 at 1740, Until Discontinued, Swallow tab whole. Do NOT crush or chew., Given 11/18/2020 8:21 AM CDT 8 mEq prochlorperazine (COMPAZINE) 10 mg/2 mL injection solution 5 mg 5 mg, IV, Every six hours prn, Starting Sat10/18/20 at 1547, Until Discontinued, nausea, vomiting, 1 mL, Use SECOND. If ineffective and ondansetron used, call physician for alternative, senna-docusate sodium (SENOKOT-S;PERICOL JACQUI) tablet 1 tablet 1 tablet, Oral, Two times a day prn, Starting 10/18 at 1547, Until Discontinued, constipation, Use first fo r constipation unless patient cannot take oral medications, sodium chloride 0.9% flush (adult) 10 mL Given 11/17/2020 10:43 AM CDT 10 mL 10 mL, IV, Two times a day and prn, First dose on Sat10/18/20 at 2100, Until Discontinued, 10 mL, Flush IV line as scheduled and as often as necessary before and after meds., Given 11/16/2020 10:35 AM CDT 10 mL Given 11/15/2020 8:23 AM CDT 10 mL sodium chloride 0.9% prefilled 10 mL syringe Given 5:59 AM CDT 10 mL (Materials Management Item) 10 mL 10 mL, IV, Two times a day and prn, First dose on Sat10/23/20 at 1700, Until Discontinued, 10 mL, Flush PICC lumen with 10 mL sodium chloride 0.9% followed by heparin 300 units (100 units/mL) twice daily at 8368-1672 and after each use, Given 11/17/2020 5:29 PM CDT 10 mL Given 11/17/2020 5:07 AM CDT 10 mL traZODone (DESYREL) tablet 50 mg 50 mg, Oral, Bedtime prn, Starting Sat at 1553, Until Discontinued, other (Specify), insomnia triamcinolone acetonide (KENALOG,ARISTOCORT) 0.1 Given 11/18 8:23 AM CDT % cream Apply externally, Two times a day, First dose on Sat10/18/20 at 2100, Until Discontinued, To hand, Given 11/17/2020 9:49 PM CDT Given 11/14/2020 9:14 PM CDT vancomycin (VANCOCIN) 750 mg in sodium Given 11/18/2020 10:42 AM CDT 750 mg chloride 0.9% 150 mL 750 mg, IV, Every twenty four hours, First dose (after last modification) on Sat11/06/20 at 1030, Until Discontinued, 157.5 mL Given 11/17/2020 11:05 AM CDT 750 mg Given 11/16/2020 12:20 PM CDT 750 mg vitamin D3 (cholecalciferol) tablet 50 m cg 50 mcg, Oral, Daily, First dose on Sat11/18/20 at 0900 , Until Discontinued Medication Order MAR Action Action Date Dose Rate Site alteplase (CATHFLO ACTIVASE) Given 10/24/2020 10:58 AM ASSISTANT SURVEYOR 2 mg injection 2 mg 2 mg, IV catheter clearance, One time, 1 dose, 10/24/20 at 0745, 2 mL, For clotted/partially clotted central line., alteplase (CATHFLO ACTIVASE) injection 2 mg Given 10/28/2020 8:10 AM ASSISTANT SURVEYOR 2 mg 2 mg, IV catheter clearance, One time, 1 dose, Sat10/28/20 at 0630, 2 mL, For clotted/partially clotted central line., alteplase (CATHFLO ACTIVASE) injection 2 mg Given 11/03/2020 8:55 AM ASSISTANT SURVEYOR 2 mg 2 mg, IV catheter clearance, One time, 1 dose, [facility] 11/03/20 at 0740, 2 mL, For clotted/partially clotted central line., alteplase (CATHFLO ACTIVASE) injection 2 mg Given 11/12/2020 8:32 AM CDT 2 mg 2 mg, IV catheter clearance, One time, 1 dose, [facility] 11/12/20 at 1000, 2 mL, For clotted/partially clotted central line., cefepime (MAXIPIME) 2000 mg/20 mL in Given 10/25/2020 12:[address] 2,000 mg sterile water IV syringe 2,000 mg, IV, Every eight hours, First dose on Sat10/21/20 at 1630, Until Discontinued, 20 mL, Administer over 5 minutes., Given 10/25/2020 4:27 AM ASSISTANT SURVEYOR 2,000 mg Given 10/24/2020 8:17 PM ASSISTANT SURVEYOR 2,000 mg cefTRIAXone (ROCEPHIN) 1000 mg/10 mL IV Given 10/20/2020 5:39 P M ASSISTANT SURVEYOR 1,000 mg syringe in sterile water 1,000 mg, IV, Every twenty four hours, First dose on Sat10/18/20 at 1700, Until Discontinued, 10 mL, Flush IV line with normal saline prior and post administration. Do not administer with calcium containing solutions (example: Lactated Ringer's, TPN with calcium, etc) as these are not compatible with ceftriaxone. Administer over 5 minutes., Given 10/19/2020 5:24 PM ASSISTANT SURVEYOR 1,000 mg Given 10/18/2020 5:22 PM ASSISTANT SURVEYOR 1,000 mg diphenoxylate-atropine (LOMOTIL) 2.5-0.025 Given 10/19 12:19 PM ASSISTANT SURVEYOR 1 tablet mg tablet 1 tablet 1 tablet, Oral, Four times a day prn, Starting Sat10/18/20 at 1543, Until Sat10/19/20 at 1254, diarrhea, Maximum recommended dose: 8 tablets per day, Given 10/19/2020 9:06 AM ASSISTANT SURVEYOR 1 tablet diphenoxylate-atropine (LOMOTIL) 2.5-0.025 Given 10/30 6:39 AM ASSISTANT SURVEYOR 1 tablet mg tablet 1 tablet 1 tablet, Oral, Every eight hours, First dose (after last modification) on Sat10/23/20 at 1400, Until Discontinued, Maximum recommended dose: 8 tablets per day, Given 10/29/2020 10:17 PM ASSISTANT SURVEYOR 1 tablet Given 10/29/2020 2:48 PM ASSISTANT SURVEYOR 1 tablet diphenoxylate-atropine (LOMOTIL) Given 10/21/2020 3:12 PM ASSISTANT SURVEYOR 2 tablets 2.5-0.025 mg tablet 2 tablet 2 tablet, Oral, Four times a day prn, Starting Sat10/19/20 at 1254, Until Sat10/23/20 at 0920, diarrhea, Maximum recommended dose: 8 tablets per day, Given 10/20/2020 5:46 PM ASSISTANT SURVEYOR 2 tablets Given 10/20/2020 9:07 AM ASSISTANT SURVEYOR 2 tablets diphenoxylate-atropine (LOMOTIL) Given 11/15/2020 2:38 PM CDT 2 tablets 2.5-0.025 mg tablet 2 tablet 2 tablet, Oral, Every eight hours, First dose (after last modification) on Sat10/30/20 at 1400, Until Discontinued, Maximum recommended dose: 8 tablets per day, Given 11/15/2020 5:32 AM CDT 2 tablets Given 11/14/2020 9:26 PM CDT 2 tablets fentaNYL 100 mcg/2 mL preservative free Given 11/14/2020 4:33 P M CDT 25 mcg injection solution 0-500 mcg 0-500 mcg, IV, One time prn, Starting Sat11/14/20 at 1543, Until Sat11/14/20 at 2342, other (Specify), sedation during IR procedure, 10 mL, Pre-Procedure (IR), procedural area to release, Suggested boluses of 25 mcg. Give under the direction of a provide privileged to perform sedation. Max total cumulative dose of 500 mcg for each procedure. Do not give on the floor., Given 11/14/2020 4:09 PM CDT 50 mcg gabapentin (NEURONTIN) capsule 600 mg Given 11/09/2020 10:27 AM CDT 600 mg 600 mg, Oral, Three times a day, First dose on Sat10/18/20 at 2100, Until Discontinued Given 11/08/2020 9:24 PM CDT 600 mg Given 11/08/2020 3:08 PM CDT 600 mg iohexol (OMNIPAQUE) 350 mg/mL solution 0-50 Given 11/14/2020 5:09 PM CDT 50 mL mL 0-50 mL, Injection, Now imaging, 1 dose, Starting Sat11/14/20 at 1621, Until Sat11/14/20 at 1709, 50 mL iohexol (OMNIPAQUE) 350 mg/mL solution 5 0 mL Given 10/24/2020 7:00 PM ASSISTANT SURVEYOR 20 mL 50 mL, IV, Now imaging, 1 dose, Starting Sat10/24/20 at 1843, Until Sat10/24/20 at 1900, 50 mL loperamide (IMODIUM) capsule 4 mg Given 10/22/2020 5:31 PM ASSISTANT SURVEYOR 4 mg 4 mg, Oral, Every four hours prn, Starting [facility] 10/20/20 at 1852, Until [place] 10/23/20 at 0920, diarrhea, Recommended maximum for children greater than 12 years and adults: 16 mg in 24 hours., Given 10/22/2020 1:55 PM ASSISTANT SURVEYOR 4 mg Given 10/21/2020 8:32 AM ASSISTANT SURVEYOR 4 mg loperamide (IMODIUM) capsule 4 mg Given 11/15/2020 2:39 PM CDT 4 mg 4 mg, Oral, Every eight hours, First dose (after last modification) on Sat10/23/20 at 1400, Until Discontinued, Recommended maximum for children greater than 12 years and adults: 16 mg in 24 hours., Given 11/15/2020 5:32 AM CDT 4 mg Given 11/14/2020 9:26 PM CDT 4 mg magnesium sulfate 2 g/50 mL premixed IV Given 10/18/2020 8:03 P M ASSISTANT SURVEYOR 2 g solution 2 g, IV, Now, 1 dose, e 10/18/20 at 1755, 50 mL magnesium sulfate 2 g/50 mL premixed IV Given 10/20/2020 7:58 P M ASSISTANT SURVEYOR 2 g solution 2 g, IV, Now, 1 dose, [facility] 10/20/20 at 1845, 50 mL magnesium sulfate 2 g/50 mL premixed IV Given 10/21/2020 9:45 A M ASSISTANT SURVEYOR 2 g solution 2 g, IV, Now, 1 dose, Sat10/21/20 at 1000, 50 mL magnesium sulfate 2 g/50 mL premixed IV Given 10/23/2020 7:31 P M ASSISTANT SURVEYOR 2 g solution 2 g, IV, Now, 1 dose, [place] 10/23/20 at 1800, 50 mL magnesium sulfate 2 g/50 mL premixed IV Given 10/25/2020 6:38 P M ASSISTANT SURVEYOR 2 g solution 2 g, IV, Now, 1 dose, Sat10/25/20 at 1830, 50 mL magnesium sulfate 2 g/50 mL premixed IV Given 10/31/2020 9:01 A M ASSISTANT SURVEYOR 2 g solution 2 g, IV, Now, 1 dose, [facility] 10/31/20 at 0830, 50 mL magnesium sulfate 2 g/50 mL premixed IV Given 11/01/2020 8:43 A M ASSISTANT SURVEYOR 2 g solution 2 g, IV, Now, 1 dose, 11/01/20 at 0745, 50 mL magnesium sulfate 2 g/50 mL premixed IV Given 11/02/2020 6:42 P M ASSISTANT SURVEYOR 2 g solution 2 g, IV, Now, 1 dose, 11/02/20 at 1735, 50 mL magnesium sulfate 2 g/50 mL premixed IV Given 11/05/2020 11:48 A M ASSISTANT SURVEYOR 2 g solution 2 g, IV, Now, 1 dose, 11/05/20 at 0920, 50 mL magnesium sulfate 2 g/50 mL premixed IV Given 11/06/2020 6:28 P M CDT 2 g solution 2 g, IV, Now, 1 dose, 11/06/20 at 1800, 50 mL magnesium sulfate 2 g/50 mL premixed IV Given 11/07/2020 2:54 P M CDT 2 g solution 2 g, IV, Now, 1 dose, 11/07/20 at 1330, 50 mL magnesium sulfate 2 g/50 mL premixed IV Given 11/08/2020 2:51 P M CDT 2 g solution 2 g, IV, Now, 1 dose, 11/08/20 at 1120, 50 mL magnesium sulfate 2 g/50 mL premixed IV Given 11/09/2020 8:30 P M CDT 2 g solution 2 g, IV, Now, 1 dose, 11/09/20 at 1825, 50 mL magnesium sulfate 2 g/50 mL premixed IV Given 11/18/2020 10:35 A M CDT 2 g solution 2 g, IV, Now, 1 dose, 11/18/20 at 0800, 50 mL magnesium sulfate 2 gm/50 mL IV solution 4 g Given 10/30/2020 11:20 AM ASSISTANT SURVEYOR 4 g 4 g, IV, One time, 1 dose, 10/30/20 at 1100, 100 mL magnesium sulfate IV replacement Given 10/28/2020 9:32 PM ASSISTANT SURVEYOR 4 g 25 mL/hr (premix) 4 g 4 g, IV, at 25 mL/hr, Now, 1 dose, 10/28/20 at 0900, 100 mL magnesium sulfate IV replacement Given 11/03/2020 5:57 PM ASSISTANT SURVEYOR 4 g 25 mL/hr (premix) 4 g 4 g, IV, at 25 mL/hr, One time, 1 dose, [facility] 11/03/20 at 1830, 100 mL magnesium sulfate IV replacement Given 11/11/2020 1:17 PM CDT 4 g 25 mL/hr (premix) 4 g 4 g, IV, at 25 mL/hr, One time, 1 dose, Sat11/11/20 at 0840, 100 mL magnesium sulfate IV replacement Given 11/13/2020 1:34 PM CDT 4 g 25 mL/hr (premix) 4 g 4 g, IV, at 25 mL/hr, Now, 1 dose, Sat11/13/20 at 1045, 100 mL magnesium sulfate IV replacement Given 11/16/2020 6:34 PM CDT 4 g 25 mL/hr (premix) 4 g 4 g, IV, at 25 mL/hr, One time, 1 dose, Sat11/16/20 at 1805, 100 mL midazolam (VERSED) injection solution 0-10 Given 11/14/2020 4:33 PM CDT 0.5 mg mg 0-10 mg, IV, One time prn, Starting 11/14/20 at 1543, Until Sat11/14/20 at 2342, other (Specify), sedation during IR procedure, 10 mL, Pre-Procedure (IR), procedural area to release, Suggested boluses of 1 mg. Give under the direction of the provider. Max total cumulative dose of 10 mg for each procedure. Do not give on the floor., Given 11/14/2020 4:09 PM CDT 1 mg octreotide acetate (sandoSTATIN) injection Given 10/29 4:06 AM ASSISTANT SURVEYOR 100 mcg solution 100 mcg 100 mcg, Subcutaneous, Every eight hours, First dose on Sat10/23/20 at 0940, Until Discontinued, 1 mL Given 10/28/2020 9:20 PM ASSISTANT SURVEYOR 100 mcg Given 10/28/2020 12:08 PM ASSISTANT SURVEYOR 100 mcg Abdo yuliet Tissue potassium chloride (KLOR-CON M20) CR tablet Given 10/25 8:09 AM CDT 20 mEq 20 mEq 20 mEq, Oral, Two times a day, First dose on Sat10/18/20 at 2100, Until Discontinued, Tablet may be broken in half, but should not be crushed or chewed. Tablet may be dissolved in 4 oz of water. DO NOT give via feeding tube route as this can clog the tube., Given 11/16/2020 9:26 PM CDT 20 mEq Given 11/16/2020 10:30 AM CDT 20 mEq potassium chloride 20 mEq, lidocaine 10 mg Given 10/21/2020 11:24 AM ASSISTANT SURVEYOR 20 mEq in dextrose 5% 250 mL 20 mEq, IV, One time, 1 dose, Sat10/21/20 at 1000, 250 mL, Infuse at 10 mEq per hour. May increase to 20 mEq per hour if patient is on telemetry., potassium phosphate 15 mmol in dextrose 5% Given 10/19 9:07 AM ASSISTANT SURVEYOR 15 mmol 250 mL 15 mmol, IV, One time, 1 dose, Sat10/19/20 at 0745, 250 mL, *15 mmol of kphos contains 22 meq of potassium. Maximum rate 10 meq/hr of potassium (6.8 mmol/hr) if patient is not on telemetry, and 20 meq/hr if patient is on telemetry (13.6 mmol/hr), please choose duration accordingly., senna-docusate sodium Given 10/27/2020 9:42 AM ASSISTANT SURVEYOR 1 tablet (SENOKOT-S;PERICOLACE) tablet 1 tablet 1 tablet, Oral, Two times a day, First dose on Sat10/24/20 at 2100, Until Discontinued, Post - Op, Hold if 2 loose stools occur in the last 24 hours., sodium chloride 0.9% IV solution flush b ag New Bag 10/24/2020 2:57 PM ASSISTANT SURVEYOR IV, Continuous, Starting Sat10/24/20 at 1500, Until Sat10/25/20 at 1459, 1,000 mL, IV line carrier for line flush with blood product infusion., sodium phosphates 15 mmol in dextrose 5% Given 10/18/2020 10:10 PM ASSISTANT SURVEYOR 15 mmol 250 mL 15 mmol, IV, One time, 1 dose, Sat10/18/20 at 2100, 250 mL sodium phosphates 15 mmol in dextrose 5% Given 10/23/2020 8:51 PM ASSISTANT SURVEYOR 15 mmol 250 mL 15 mmol, IV, One time, 1 dose, [place] 10/23/20 at 1800, 250 mL sodium phosphates 15 mmol in dextrose 5% Given 11/01/2020 10:44 AM ASSISTANT SURVEYOR 15 mmol 250 mL 15 mmol, IV, One time, 1 dose, Sat11/01/20 at 0825, 250 mL sodium phosphates 15 mmol in dextrose 5% Given 11/02/2020 9:57 PM ASSISTANT SURVEYOR 15 mmol 250 mL 15 mmol, IV, One time, 1 dose, 11/02/20 at 1835, 250 mL sodium phosphates 15 mmol in dextrose 5% Given 11/03/2020 10:34 PM ASSISTANT SURVEYOR 15 mmol 250 mL 15 mmol, IV, One time, 1 dose, [facility] 11/03/20 at 1830, 250 mL sodium phosphates 15 mmol in dextrose 5% Given 11/05/2020 1:56 PM ASSISTANT SURVEYOR 15 mmol 250 mL 15 mmol, IV, One time, 1 dose, 11/05/20 at 1020, 250 mL sodium phosphates 15 mmol in dextrose 5% Given 11/06/2020 7:46 PM CDT 15 mmol 250 mL 15 mmol, IV, One time, 1 dose, [place] 11/06/20 at 1800, 250 mL sodium phosphates 15 mmol in dextrose 5% Given 11/08/2020 4:40 PM CDT 15 mmol 250 mL 15 mmol, IV, One time, 1 dose, 11/08/20 at 1215, 250 mL sodium phosphates 30 mmol in dextrose 5% Given 10/21/2020 12:16 AM ASSISTANT SURVEYOR 30 mmol 250 mL 30 mmol, IV, One time, 1 dose, [facility] 10/20/20 at 1920, 250 mL sodium phosphates 30 mmol in dextrose 5% Given 10/25/2020 8:43 PM ASSISTANT SURVEYOR 30 mmol 250 mL 30 mmol, IV, One time, 1 dose, 10/25/20 at 1900, 250 mL sodium phosphates 30 mmol in dextrose 5% Given 10/28/2020 11:58 AM ASSISTANT SURVEYOR 30 mmol 250 mL 30 mmol, IV, One time, 1 dose, Sat10/28/20 at 0900, 250 mL sodium phosphates 30 mmol in dextrose 5% Given 10/31/2020 11:44 AM ASSISTANT SURVEYOR 30 mmol 250 mL 30 mmol, IV, One time, 1 dose, 10/31/20 at 0830, 250 mL sodium phosphates 30 mmol in dextrose 5% Given 11/11/2020 8:33 PM CDT 30 mmol 250 mL 30 mmol, IV, One time, 1 dose, 11/11/20 at 0840, 250 mL sodium phosphates 30 mmol in dextrose 5% Given 11/15/2020 10:02 PM CDT 30 mmol 250 mL 30 mmol, IV, One time, 1 dose, 11/15/20 at 1830, 250 mL sodium phosphates 30 mmol in dextrose 5% Given 11/17/2020 7:30 PM CDT 30 mmol 250 mL 30 mmol, IV, One time, 1 dose, [facility] 11/17/20 at 1330, 250 mL vancomycin in dextrose 200 mL IV piggyback Given 10/26 4:38 AM ASSISTANT SURVEYOR 1,000 mg (premix) 1,000 mg 1,000 mg, IV, Every twelve hours, First dose on Sat10/21/20 at 1700, Until Discontinued, 200 mL Given 10/25/2020 5:33 PM ASSISTANT SURVEYOR 1,000 mg Given 10/25/2020 5:18 AM ASSISTANT SURVEYOR 1,000 mg vancomycin in dextrose 200 mL IV piggyback Given 10/27 7:57 PM ASSISTANT SURVEYOR 1,000 mg (premix) 1,000 mg 1,000 mg, IV, One time, 1 dose, [facility] 10/27/20 at 1945, 200 mL vancomycin in dextrose 200 mL IV piggyback Given 10/29 9:53 AM ASSISTANT SURVEYOR 1,000 mg (premix) 1,000 mg 1,000 mg, IV, One time, 1 dose, [facility] 10/29/20 at 0800, 200 mL vancomycin in dextrose 200 mL IV piggyback Given 10/30 8:03 PM ASSISTANT SURVEYOR 1,000 mg (premix) 1,000 mg 1,000 mg, IV, One time, 1 dose, [place] 10/30/20 at 2000, 200 mL vancomycin in dextrose 200 mL IV piggyback Given 11/01 1:31 AM ASSISTANT SURVEYOR 1,000 mg (premix) 1,000 mg 1,000 mg, IV, One time, 1 dose, [facility] 11/01/20 at 0100, 200 mL vancomycin in dextrose 200 mL IV piggyback Given 11/05 10:30 AM ASSISTANT SURVEYOR 1,000 mg (premix) 1,000 mg 1,000 mg, IV, Every twenty four hours, First dose on Sat11/02/20 at 0930, Until Discontinued, 200 mL Given 11/04/2020 10:38 AM ASSISTANT SURVEYOR 1,000 mg Given 11/03/2020 10:31 AM ASSISTANT SURVEYOR 1,000 mg warfarin (COUMADIN) - NO dose Verified No Dose Today 10/18/2020 5:34 PM ASSISTANT SURVEYOR today Oral, Warfarin no dose, 1 dose, 10/18/20 at 1705, If unable to administer dose intact, wear universal precautions (one pair of gloves)., warfarin (COUMADIN) - NO dose Verified No Dose Today 10/20/2020 4:13 PM ASSISTANT SURVEYOR today Oral, Warfarin no dose, 1 dose, [facility] 10/20/20 at 1600, If unable to administer dose intact, wear universal precautions (one pair of gloves)., warfarin (COUMADIN) - NO dose Verified No Dose Today 10/22/2020 3:27 PM ASSISTANT SURVEYOR today Oral, Warfarin no dose, 1 dose, 10/22/20 at 1600, If unable to administer dose intact, wear universal precautions (one pair of gloves)., warfarin (COUMADIN) - NO dose Verified No Dose Today 10/27/2020 2:11 PM ASSISTANT SURVEYOR today Oral, Warfarin no dose, 1 dose, [facility] 10/27/20 at 1600, If unable to administer dose intact, wear universal precautions (one pair of gloves)., warfarin (COUMADIN) - NO dose Verified No Dose Today 10/29/2020 4:17 PM ASSISTANT SURVEYOR today Oral, Warfarin no dose, 1 dose, 10/29/20 at 1600, No dose today per home routine If unable to administer dose intact, wear universal precautions (one pair of gloves)., warfarin (COUMADIN) - NO dose Verified No Dose Today 10/30/2020 3:37 PM ASSISTANT SURVEYOR today Oral, Warfarin no dose, 1 dose, 10/30/20 at 1600, If unable to administer dose intact, wear universal precautions (one pair of gloves)., warfarin (COUMADIN) - NO dose Verified No Dose Today 11/01/2020 3:01 PM ASSISTANT SURVEYOR today Oral, Warfarin no dose, 1 dose, 11/01/20 at 1600, If unable to administer dose intact, wear universal precautions (one pair of gloves)., warfarin (COUMADIN) - NO dose Verified No Dose Today 11/03/2020 6:43 PM ASSISTANT SURVEYOR today Oral, Warfarin no dose, 1 dose, Sheri 11/03/20 at 1600, If unable to administer dose intact, wear universal precautions (one pair of gloves)., warfarin (COUMADIN) - NO dose Verified No Dose Today 11/05/2020 3:46 PM ASSISTANT SURVEYOR today Oral, Warfarin no dose, 1 dose, 11/05/20 at 1600, If unable to administer dose intact, wear universal precautions (one pair of gloves)., warfarin (COUMADIN) - NO dose Verified No Dose Today 11/06/2020 4:54 PM CDT today Oral, Warfarin no dose, 1 dose, 11/06/20 at 1600, If unable to administer dose intact, wear universal precautions (one pair of gloves)., warfarin (COUMADIN) - NO dose Verified No Dose Today 11/08/2020 4:41 PM CDT today Oral, Warfarin no dose, 1 dose, 11/08/20 at 1600, If unable to administer dose intact, wear universal precautions (one pair of gloves)., warfarin (COUMADIN) - NO dose Verified No Dose Today 11/10/2020 5:00 PM CDT today Oral, Warfarin no dose, 1 dose, Sheri 11/10/20 at 1600, If unable to administer dose intact, wear universal precautions (one pair of gloves)., warfarin (COUMADIN) - NO dose Verified No Dose Today 11/12/2020 4:17 PM CDT today Oral, Warfarin no dose, 1 dose, 11/12/20 at 1600, If unable to administer dose intact, wear universal precautions (one pair of gloves)., warfarin (COUMADIN) - NO dose Verified No Dose Today 11/13/2020 4:02 PM CDT today Oral, Warfarin no dose, 1 dose, 11/13/20 at 1600, Hold dose 11/[address] Maria If unable to administer dose intact, wear universal precautions (one pair of gloves)., warfarin (COUMADIN) - NO dose Verified No Dose Today 11/15/2020 3:42 PM CDT today Oral, Warfarin no dose, 1 dose, 11/15/20 at 1600, If unable to administer dose intact, wear universal precautions (one pair of gloves)., warfarin (COUMADIN) - NO dose Verified No Dose Today 11/17/2020 7:26 PM CDT today Oral, Warfarin no dose, 1 dose, Sheri 11/17/20 at 1600, If unable to administer dose intact, wear universal precautions (one pair of gloves)., warfarin (COUMADIN) tablet 1.25 mg Given 10/19/2020 5:24 PM ASSISTANT SURVEYOR 1.25 mg 1.25 mg, Oral, Warfarin one time dose, 1 dose, Sat10/19/20 at 1600, If patient is receiving tube feeding, hold tube feeding 1 hour before and 1 hour after warfarin administration If unable to administer dose intact, wear universal precautions (one pair of gloves)., warfarin (COUMADIN) tablet 1.25 mg Given 10/21/2020 4:04 PM ASSISTANT SURVEYOR 1.25 mg 1.25 mg, Oral, Warfarin one time dose, 1 dose, Sat10/21/20 at 1600, If patient is receiving tube feeding, hold tube feeding 1 hour before and 1 hour after warfarin administration. If unable to administer dose intact, wear universal precautions (one pair of gloves)., warfarin (COUMADIN) tablet 1.25 mg Given 10/25/2020 3:35 PM ASSISTANT SURVEYOR 1.25 mg 1.25 mg, Oral, Warfarin one time dose, 1 dose, Tu10/25/20 at 1600, If patient is receiving tube feeding, hold tube feeding 1 hour before and 1 hour after warfarin administration. If unable to administer dose intact, wear universal precautions (one pair of gloves)., warfarin (COUMADIN) tablet 1.25 mg Given 10/26/2020 3:24 PM ASSISTANT SURVEYOR 1.25 mg 1.25 mg, Oral, Warfarin one time dose, 1 dose, Sat10/26/20 at 1600, If patient is receiving tube feeding, hold tube feeding 1 hour before and 1 hour after warfarin administration. If unable to administer dose intact, wear universal precautions (one pair of gloves)., warfarin (COUMADIN) tablet 1.25 mg Given 10/28/2020 3:50 PM ASSISTANT SURVEYOR 1.25 mg 1.25 mg, Oral, Warfarin one time dose, 1 dose, 10/28/20 at 1600, If patient is receiving tube feeding, hold tube feeding 1 hour before and 1 hour after warfarin administration. If unable to administer dose intact, wear universal precautions (one pair of gloves)., warfarin (COUMADIN) tablet 1.25 mg Given 10/31/2020 5:36 PM ASSISTANT SURVEYOR 1.25 mg 1.25 mg, Oral, Warfarin one time dose, 1 dose, 10/31/20 at 1600, If patient is receiving tube feeding, hold tube feeding 1 hour before and 1 hour after warfarin administration. If unable to administer dose intact, wear universal precautions (one pair of gloves)., warfarin (COUMADIN) tablet 1.25 mg Given 11/02/2020 3:28 PM ASSISTANT SURVEYOR 1.25 mg 1.25 mg, Oral, Warfarin one time dose, 1 dose, Sat11/02/20 at 1600, If patient is receiving tube feeding, hold tube feeding 1 hour before and 1 hour after warfarin administration. If unable to administer dose intact, wear universal precautions (one pair of gloves)., warfarin (COUMADIN) tablet 1.25 mg Given 11/04/2020 5:50 PM ASSISTANT SURVEYOR 1.25 mg 1.25 mg, Oral, Warfarin one time dose, 1 dose, Sat11/04/20 at 1600, If patient is receiving tube feeding, hold tube feeding 1 hour before and 1 hour after warfarin administration. If unable to administer dose intact, wear universal precautions (one pair of gloves)., warfarin (COUMADIN) tablet 1.25 mg Given 11/07/2020 4:32 PM CDT 1.25 mg 1.25 mg, Oral, Warfarin one time dose, 1 dose, Sat11/07/20 at 1600, If patient is receiving tube feeding, hold tube feeding 1 hour before and 1 hour after warfarin administration If unable to administer dose intact, wear universal precautions (one pair of gloves)., warfarin (COUMADIN) tablet 1.25 mg Given 11/09/2020 5:38 PM CDT 1.25 mg 1.25 mg, Oral, Warfarin one time dose, 1 dose, Sat11/09/20 at 1600, If patient is receiving tube feeding, hold tube feeding 1 hour before and 1 hour after warfarin administration. If unable to administer dose intact, wear universal precautions (one pair of gloves)., warfarin (COUMADIN) tablet 1.25 mg Given 11/11/2020 4:07 PM CDT 1.25 mg 1.25 mg, Oral, Warfarin one time dose, 1 dose, Sat11/11/20 at 1600, If patient is receiving tube feeding, hold tube feeding 1 hour before and 1 hour after warfarin administration If unable to administer dose intact, wear universal precautions (one pair of gloves)., warfarin (COUMADIN) tablet 1.25 mg Given 11/14/2020 5:31 PM CDT 1.25 mg 1.25 mg, Oral, Warfarin one time dose, 1 dose, Sat11/14/20 at 1600, If patient is receiving tube feeding, hold tube feeding 1 hour before and 1 hour after warfarin administration. If unable to administer dose intact, wear universal precautions (one pair of gloves)., warfarin (COUMADIN) tablet 1.25 mg Given 11/16/2020 4:38 PM CDT 1.25 mg 1.25 mg, Oral, Warfarin one time dose, 1 dose, 11/16/20 at 1600, If patient is receiving tube feeding, hold tube feeding 1 hour before and 1 hour after warfarin administration. If unable to administer dose intact, wear universal precautions (one pair of gloves)., warfarin (COUMADIN) tablet 1.25 mg Given 11/18/2020 3:46 PM CDT 1.25 mg 1.25 mg, Oral, Warfarin one time dose, 1 dose, 11/18/20 at 1600, If patient is receiving tube feeding, hold tube feeding 1 hour before and 1 hour after warfarin administration. 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
[2020-11-21] MEDS: Cholecalciferol (Vitamin D3) 25 MCG Tab PO SCH ×2 (08:59→11:59)
[2020-11-21] MEDS: Gabapentin 300 MG Cap PO SCH ×4 (08:59→19:30)
[2020-11-21] MEDS: Potassium Chloride 20 MEQ Tab.ER PO SCH ×4 (08:59→19:30)
[2020-11-21] MEDS: Phytonadione 100 MCG Tab PO SCH ×2 (08:59→11:59)
[2020-11-21] MEDS: glipiZIDE 5 MG Tab.ER PO SCH ×2 (08:59→11:58)
[2020-11-21] MEDS: Multivitamin Tab PO SCH ×2 (08:59→11:58)
[2020-11-21] MEDS: Calcium Carbonate 500 MG Tab.Chew PO SCH ×5 (09:00→19:29)
[2020-11-21] MEDS: Amylase/Lipase/Protease 12,000 Unit Cap.CR PO SCH ×5 (09:00→19:30)
[2020-11-21] MEDS: Octreotide 100 MCG/ML SDV SUBCUT SCH ×3 (09:00→23:05)
[2020-11-21] MEDS: Sodium Chloride 0.9% 10 ML Syringe FLUSH SCH ×7 (09:03→20:24)
[2020-11-21] MEDS: Insulin Lispro 100 Units/ML 3 ML Vial SUBCUT SCH ×3 (09:07→17:37)
[2020-11-21] MEDS: Ertapenem 1 GM in Sodium Chloride 0.9% 100 ML IV SCH (09:08)
[2020-11-21 09:24] LABS: CHLORIDE,CL 113 mmol/L (98-107); SODIUM,NA 144 mmol/L (136-145)
[2020-11-21] MEDS: HYDROmorphone 0.5 MG/0.5 ML Syringe IVPUSH PRN (10:39)
--- NOTE | 2020-11-21 13:08 | PCM.SN.2 ---
- Free Text/Narrative Note: Blood work results from today were reviewed. INR is somewhat subtherapeutic, however note current antibiotic therapy. Coumadin ordered with repeat blood work ordered for 11/23. Note mildly elevated CRP. Patient is afebrile with stable vital signs. Accu-Cheks are under relatively good control at this time.
[2020-11-21] MEDS: Sodium Chloride 0.9% 10 ML Syringe FLUSH PRN (13:36)
[2020-11-21] MEDS ORDERED: Warfarin 2.5 MG Tab PO SCH (18:00)
[2020-11-21] MEDS ORDERED: Alteplase 2 MG Vial IVPUSH ONE (18:00)
[2020-11-22] MEDS: Sodium Chloride 0.9% 10 ML Syringe FLUSH PRN ×2 (07:25→16:35)
--- NOTE | 2020-11-22 08:58 | PCM.SN.2 ---
- Free Text/Narrative Note: Laboratory Results - last 24 hr 11/21/20 11/21/20 11/21/20 Range/Units 09:00 09:00 09:00 WBC 2.1 L (4.0-10.2) K/uL RBC 3.04 L (3.77-5.09) M/uL Hgb 9.4 L D (11.7-15.5) g/dL Hct 29.2 L (34.0-46.0) % MCV 96.1 D (84.0-98.0) fL MCH 30.9 (28.2-33.3) pg MCHC 32.2 (31.7-36.0) g/dL RDW 22.4 H (11.2-14.1) % Plt Count 66 L D (150-350) K/uL Neut % (Auto) 66.1 (45.0-80.0) % Lymph % (Auto) 12.1 (10.0-50.0) % [place] % (Auto) 18.9 H (2.0-14.0) % Eos % (Auto) 1.9 (0.0-5.0) % Baso % (Auto) 1.0 (0.0-2.0) % Neut # (Auto) 1.36 L (1.40-7.00) K/uL Lymph # (Auto) 0.25 L (0.50-3.50) K/uL [place] # (Auto) 0.39 (0.00-1.00) K/uL Eos # (Auto) 0.04 (0.00-0.50) K/uL Baso # (Auto) 0.02 (0.00-0.20) K/uL ESR 73 H (0-30) mm/hr PT 16.0 H (9.5-12.0) SEC INR 1.6 Sodium 144 (136-145) mmol/L Potassium 3.8 (3.5-5.1) mmol/L Chloride 113 H (98-107) mmol/L Carbon Dioxide 21.0 (21.0-32.0) mmol/L BUN 13 (7-18) mg/dL Creatinine 0.76 (0.51-1.17) mg/dL Est Cr Clr Drug Dosing TNP Estimated GFR (MDRD) > 60 mL/min Glucose 155 H (70-99) mg/dL POC Glucose (65-110) mg/dl Calcium 7.8 L (8.5-10.1) mg/dL ALT 11 L (12-78) U/L Creatine Kinase 12 L (26-308) U/L C-Reactive Protein 1.7 H (<=0.9) mg/dL 11/21/20 11/21/20 11/21/20 Range/Units 09:02 17:15 20:20 WBC (4.0-10.2) K/uL RBC (3.77-5.09) M/uL Hgb (11.7-15.5) g/dL Hct (34.0-46.0) % MCV (84.0-98.0) fL MCH (28.2-33.3) pg MCHC (31.7-36.0) g/dL RDW (11.2-14.1) % Plt Count (150-350) K/uL Neut % (Auto) (45.0-80.0) % Lymph % (Auto) (10.0-50.0) % [place] % (Auto) (2.0-14.0) % Eos % (Auto) (0.0-5.0) % Baso % (Auto) (0.0-2.0) % Neut # (Auto) (1.40-7.00) K/uL Lymph # (Auto) (0.50-3.50) K/uL [place] # (Auto) (0.00-1.00) K/uL Eos # (Auto) (0.00-0.50) K/uL Baso # (Auto) (0.00-0.20) K/uL ESR (0-30) mm/hr PT (9.5-12.0) SEC INR Sodium (136-145) mmol/L Potassium (3.5-5.1) mmol/L Chloride (98-107) mmol/L Carbon Dioxide (21.0-32.0) mmol/L BUN (7-18) mg/dL Creatinine (0.51-1.17) mg/dL Est Cr Clr Drug Dosing Estimated GFR (MDRD) mL/min Glucose (70-99) mg/dL POC Glucose 155 H 281 H* 144 H (65-110) mg/dl Calcium (8.5-10.1) mg/dL ALT (12-78) U/L Creatine Kinase (26-308) U/L C-Reactive Protein (<=0.9) mg/dL 11/22/20 11/22/20 11/22/20 Range/Units 07:11 07:30 07:30 WBC 1.9 L* (4.0-10.2) K/uL RBC 2.92 L (3.77-5.09) M/uL Hgb 9.0 L (11.7-15.5) g/dL Hct 28.4 L (34.0-46.0) % MCV 97.3 (84.0-98.0) fL MCH 30.8 (28.2-33.3) pg MCHC 31.7 (31.7-36.0) g/dL RDW 22.4 H (11.2-14.1) % Plt Count 65 L (150-350) K/uL Neut % (Auto) 63.0 (45.0-80.0) % Lymph % (Auto) 16.1 (10.0-50.0) % [place] % (Auto) 18.8 H (2.0-14.0) % Eos % (Auto) 1.6 (0.0-5.0) % Baso % (Auto) 0.5 (0.0-2.0) % Neut # (Auto) 1.21 L (1.40-7.00) K/uL Lymph # (Auto) 0.31 L (0.50-3.50) K/uL [place] # (Auto) 0.36 (0.00-1.00) K/uL Eos # (Auto) 0.03 (0.00-0.50) K/uL Baso # (Auto) 0.01 (0.00-0.20) K/uL ESR 64 H (0-30) mm/hr PT (9.5-12.0) SEC INR Sodium (136-145) mmol/L Potassium (3.5-5.1) mmol/L Chloride (98-107) mmol/L Carbon Dioxide (21.0-32.0) mmol/L BUN (7-18) mg/dL Creatinine 0.71 (0.51-1.17) mg/dL Est Cr Clr Drug Dosing TNP Estimated GFR (MDRD) > 60 mL/min Glucose (70-99) mg/dL POC Glucose 138 H (65-110) mg/dl Calcium (8.5-10.1) mg/dL ALT 11 L (12-78) U/L Creatine Kinase 12 L (26-308) U/L C-Reactive Protein 1.6 H (<=0.9) mg/dL Persistent moderate leukopenia with mild progression of her anemia. Patient is afebrile, and vital signs are stable. Infectious disease has ordered weekly blood work and is following these evaluations. Observe for now. Blood work, including INR and basic metabolic panel have already been ordered for tomorrow with additional iron studies and vitamin B12 level at that time. No evidence of acute GI bleed.
[2020-11-22] MEDS: Octreotide 100 MCG/ML SDV SUBCUT SCH (09:00)
[2020-11-22] MEDS: Phytonadione 100 MCG Tab PO SCH (09:00)
[2020-11-22] MEDS: Amylase/Lipase/Protease 12,000 Unit Cap.CR PO SCH ×2 (09:00→12:28)
[2020-11-22] MEDS: Gabapentin 300 MG Cap PO SCH (09:00)
[2020-11-22] MEDS: glipiZIDE 5 MG Tab.ER PO SCH (09:00)
[2020-11-22] MEDS: Sodium Chloride 0.9% 10 ML Syringe FLUSH SCH ×4 (09:06→09:46)
[2020-11-22] MEDS: Ertapenem 1 GM in Sodium Chloride 0.9% 100 ML IV SCH (09:12)
[2020-11-22] MEDS: Multivitamin Tab PO SCH (09:33)
[2020-11-22] MEDS: Calcium Carbonate 500 MG Tab.Chew PO SCH ×2 (09:33→12:29)
[2020-11-22] MEDS: Insulin Lispro 100 Units/ML 3 ML Vial SUBCUT SCH ×2 (09:33→12:28)
[2020-11-22] MEDS: Potassium Chloride 20 MEQ Tab.ER PO SCH (09:33)
[2020-11-22] MEDS: Cholecalciferol (Vitamin D3) 25 MCG Tab PO SCH (09:34)
[2020-11-22] MEDS ORDERED: QUEtiapine 25 MG Tab PO ONE (13:27)
[2020-11-22] MEDS ORDERED: Lactated Ringers 1,000 ML IV ONE (16:26)
[2020-11-22] MEDS ORDERED: Sodium Chloride 0.9% 10 ML Syringe FLUSH PRN (16:26)
--- NOTE | 2020-11-22 16:44 | PCM.DCSUM1 ---
Discharge Summary - Hospital Course HPI Initial Comments: See admission H&P Brief History: See admission H&P. Diagnosis: Stroke: Yes Modified Modesta Scale: Mod.Sev.Disability ;Unable to Walk/Attend Bodily Needs W/O Assistance Modified Grant Scale Score: 4 - Discharge Data Discharge Date: 11/22/20 Discharge Disposition: DC/Tfer to Acute Hospital 02 Condition: Serious - Referral to Home Health Primary Care Physician: PCP None - Discharge Diagnosis/Problem(s) (1) Confusion SNOMED Code(s): 105393836 ICD Code: R41.0 - DISORIENTATION, UNSPECIFIED Status: Acute Priority: High Current Visit: Yes Onset Date: 11/22/20 Problem Details: Telephone consultation at 5:[address] Montana, the emergency room physician at [facility], who does expect the patient for further evaluation in the emergency room, with no further treatment recommendations given. Ambulance transfer with concrete building assembler accompaniment. Note new onset hallucinations and confusion earlier this afternoon with CT scan of the head results conducted with possible evidence of small subacute basilar ganglion lacunar infarct and possible additional left parietal subdural hematoma versus brain metastases. Secondary to hypotension and worsening condition of this patient and current anticoagulation therapy patient required further evaluation including probable MRI of the brain, etc.. Vital signs and clinical exam stable and improved prior to patient transfer. (2) Hypertension SNOMED Code(s): 71946054 ICD Code: I10 - ESSENTIAL (PRIMARY) HYPERTENSION Status: Chronic Priority: Medium Current Visit: Yes Problem Details: Known history of hypertension previously under relatively good control during early portions of swing bed care. Patient became hypotensive this afternoon with 1.5 L lactated Ringer's IV bolus initiated with continuation of IV fluids during transfer at 100 cc/h secondary to patient's improved blood pressures. Qualifiers: Hypertension type: essential hypertension Qualified Code(s): I10 - Essential (primary) hypertension (3) CHF (congestive heart failure) SNOMED Code(s): 64106838 ICD Code: I50.9 - HEART FAILURE, UNSPECIFIED Status: Acute Priority: High Current Visit: Yes Onset Date: 11/22/20 Problem Details: Newly diagnosed with moderate left pleural effusion at this time. Note evidence of lateral wall cardiac ischemia by today's EKG with mildly positive troponin I likely secondary to her CHF. Artifactually elevated CK index secondary to low baseline CK. Continue IV fluids with caution secondary to patient's severe hypotension earlier this afternoon with no IV diuresis for now. Further work-up, cardiology consultation, etc. depending on her clinical course and as per accepting providers. Qualifiers: Heart failure type: unspecified Heart failure chronicity: acute Qualified Code(s): I50.9 - Heart failure, unspecified (4) D-dimer, elevated SNOMED Code(s): 141580916 ICD Code: R79.89 - OTHER SPECIFIED ABNORMAL FINDINGS OF BLOOD CHEMISTRY Status: Acute Priority: High Current Visit: Yes Onset Date: 11/22/20 Problem Details: History of recurrent DVTs of the legs bilaterally with no previous history of PE. Further work-up by accepting providers. Accepting provider is in agreement with not performing CTA of the chest in this facility prior to patient's transfer. Note history of factor V Leiden deficiency and recurrent DVTs as below. (5) Osteomyelitis SNOMED Code(s): 62324308 ICD Code: M86.9 - OSTEOMYELITIS, UNSPECIFIED Status: Chronic Priority: High Current Visit: Yes Problem Details: The patient was hospitalized at [facility] between 10/18 and 11/18/2020 secondary to osteomyelitis with subsequent transfer to this facility for swing bed care. Note that she did have an amputation of the distal phalanx of digit #2 of the right hand in that facility. She has continued to be followed by infectious disease from [place] concerning antibiotic therapy, weekly blood work, etc. Her previous diarrhea during the above hospitalization has improved with last bowel movement earlier this morning with no direct indication of C. difficile colitis. Note that she is having significant leukopenia, however. Qualifiers: Osteomyelitis type: other acute Osteomyelitis location: hand Laterality: right Qualified Code(s): M86.141 - Other acute osteomyelitis, right hand (6) COPD (chronic obstructive pulmonary disease) SNOMED Code(s): 65121058 ICD Code: J44.9 - CHRONIC OBSTRUCTIVE PULMONARY DISEASE, UNSPECIFIED Status: Chronic Priority: High Current Visit: Yes Problem Details: No recent bronchitic type symptoms. Patient has continued her nebulizer treatments during her swing bed care. Qualifiers: COPD type: COPD with acute lower respiratory infection Qualified Code(s): J44.0 - Chronic obstructive pulmonary disease with (acute) lower respiratory infection (7) Diabetes mellitus SNOMED Code(s): 25386288 ICD Code: E11.9 - TYPE 2 DIABETES MELLITUS WITHOUT COMPLICATIONS Status: Chronic Priority: Medium Current Visit: Yes Problem Details: Her blood sugars have been under good control during her swing bed care with Humalog sliding scale in effect. Qualifiers: Diabetes mellitus type: type 2 Diabetes mellitus assisted insulin use: without assisted use Diabetes mellitus complication status: with circulatory complication Diabetes mellitus complication detail: with other circulatory complications Qualified Code(s): E11.59 - Type 2 diabetes mellitus with other circulatory complications (8) Pancreatic cancer SNOMED Code(s): 973224118 ICD Code: C25.9 - MALIGNANT NEOPLASM OF PANCREAS, UNSPECIFIED Status: Acute Priority: High Current Visit: Yes Problem Details: Apparent newly diagnosed pancreatic cancer during recent hospitalization at [facility] as above. Additional history of possible lung cancer versus metastasis with only limited records available at this time. Patient is still a full code. Qualifiers: Pancreatic malignancy location: unspecified Qualified Code(s): C25.9 - Malignant neoplasm of pancreas, unspecified (9) Lung cancer SNOMED Code(s): 788708198 ICD Code: C34.90 - MALIGNANT NEOPLASM OF UNSP PART OF UNSP BRONCHUS OR LUNG Status: Acute Priority: High Current Visit: Yes Problem Details: As above. Newly diagnosed. Previous history of distant colon cancer with hepatic metastases. Qualifiers: Laterality: unspecified laterality Lung location: unspecified part of lung Qualified Code(s): C34.90 - Malignant neoplasm of unspecified part of unspecified bronchus or lung (10) Anemia SNOMED Code(s): 916357895 ICD Code: D64.9 - ANEMIA, UNSPECIFIED Status: Chronic Priority: Medium Current Visit: Yes Problem Details: Note mildly progressive anemia during her swing bed care with no direct evidence of acute GI bleed. IV Protonix and IV Pepcid was initiated day as GI prophylaxis. Qualifiers: Anemia type: iron deficiency (11) Leukopenia SNOMED Code(s): 71057732, 977468567 ICD Code: D72.819 - DECREASED WHITE BLOOD CELL COUNT, UNSPECIFIED Status: Acute Priority: High Current Visit: Yes Problem Details: Mild leukopenia possibly secondary to recent aggressive IV antibiotic therapy. Patient is afebrile. Continue to observe closely by accepting providers, infectious disease, etc. Qualifiers: Leukopenia type: neutropenia Neutropenia type: unspecified Qualified Code(s): D70.9 - Neutropenia, unspecified (12) DVT, Deep venous thrombosis SNOMED Code(s): 813258699 ICD Code: I82.409 - ACUTE EMBOLISM AND THOMBOS UNSP DEEP VN UNSP LOWER EXTREMITY Status: Chronic Priority: High Current Visit: Yes Problem Details: Patient's INR was subtherapeutic at time of transfer to this facility. Her Coumadin was mildly increased on 11/21 with caution secondary to her IV antibiotic therapy as above. (13) Hyperthyroidism SNOMED Code(s): 43891978 ICD Code: E05.90 - THYROTOXICOSIS, UNSP WITHOUT THYROTOXIC CRISIS OR STORM Status: Chronic Priority: Medium Current Visit: Yes Problem Details: Known previous history of subclinical hyperthyroidism including depressed TSH with normal previous of free T3 and free T4. Continue to observe closely by accepting providers with further work-up per her clinical course. No Synthroid supplementation at this time. (14) Hypokalemia SNOMED Code(s): 33796656 ICD Code: E87.6 - HYPOKALEMIA Status: Chronic Priority: Medium Current Visit: Yes Problem Details: Previously a chronic problem. IV lactated Ringer's given as above. Continue to observe closely by accepting providers. (15) LFT elevation SNOMED Code(s): 256606137 ICD Code: R79.89 - OTHER SPECIFIED ABNORMAL FINDINGS OF BLOOD CHEMISTRY St atus: Acute Priority: Medium Current Visit: Yes Onset Date: 01/31/16 Problem Details: Likely secondary to her CHF. Additional possibility of fatty liver secondary to her diabetes and hyperlipidemia. Note distant history of hepatic metastases from her colon cancer with additional newly diagnosed lung and pancreatic cancer as above. (16) Hypomagnesemia SNOMED Code(s): 206971525 ICD Code: E83.42 - HYPOMAGNESEMIA Status: Chronic Priority: Medium Current Visit: Yes Onset Date: 01/31/16 Problem Details: History of hypomagnesemia in the past with patient previously noncompliant with her magnesium oxide supplementation. Consider IV magnesium sulfate by accepting providers, however delay for now secondary to hypotension as above. - Patient Summary/Data Operative Procedure(s) Performed: None Complications: 1. Possible CVA as above. 2. Persistent leukopenia 3. Final chest x-ray report from 11/22/2020. 4. Urine C&S 5. Prolactin level Consults: Consultations 11/18/20 20:30 OT Evaluation and Treatment [CONS] Routine PT Evaluation and Treatment [CONS] Routine 11/20/20 09:43 Consult to Case Management/Oil Transport Driver [CONS] Routine Consult to Dietary [Consult to Bottle Caser] [CONS] Routine Labs Pending at D/C: Prolactin level drawn on 11/22/2020. Recommended Follow-up Testing/Procedures: As per accepting providers Planned Operative Procedure(s) after DC: As per accepting providers Hospital Course: Patient was admitted [facility] by on-call physician for further strengthening, PT, OT, and continuation of previous IV antibiotic therapy secondary to osteomyelitis. Note mildly progressive anemia and persistent leukopenia during her care in this facility. The patient did exhibit some increasing hallucinations and confusion in the early afternoon on 11/[address] scan of the head ordered with results as above and below. Note subsequ ent development of confusion and hallucinations with additional hypotension with mildly progressive leukopenia and anemia as above/below. Inpatient/acute care once again required with patient transfer to [facility] as above. - Patient Instructions Diet: NPO Activity: Bedrest Driving: Do Not Drive Showering/Bathing: No Showering Notify Provider of: Fever, Increased Pain, Nausea and/or Vomiting - Discharge Plan *PRESCRIPTION DRUG MONITORING PROGRAM REVIEWED*: Not Applicable *COPY OF PRESCRIPTION DRUG MONITORING REPORT IN PATIENT KEVIN: Not Applicable Home Medications: Home Meds Acetaminophen [Acetaminophen Extra Strength] 500 mg PO Q4HR PRN 11/18/20 [History] Amylase/Lipase/Protease [Creon DR 12,000 Units] 1 cap PO TIDMEALS 11/18/20 [History] Bismuth Subsalicylate 30 mg PO TID PRN 11/18/20 [History] Calcium Carbonate [Tums] 500 mg PO TID 11/18/20 [History] Cholecalciferol (Vitamin D3) [Vitamin D3] 2,000 unit PO DAILY 11/18/20 [History] DAPTOmycin [Daptomycin] 350 mg IV Q24H 11/18/20 [History] Diphenoxylate HCl/Atropine [Diphenoxylate-Atrop 2.5-0.025] 1 each PO QID PRN 11/18/20 [History] Ertapenem [INVanz] 1 gm IV Q24H 11/18/20 [History] Gabapentin [Neurontin] 600 mg PO BID 11/18/20 [History] HYDROmorphone HCl/PF [Dilaudid 0.5 mg/0.5 ml Syringe] 0.5 mg IVPUSH Q1H PRN 11/18/20 [History] HYDROmorphone HCl/PF [Dilaudid 1 mg/ml Syringe] 1 mg IVPUSH Q1H PRN 11/18/20 [History] Heparin Sodium [Heparin Lock Flush] 300 unit FLUSH Q12HR 11/18/20 [History] Insulin Aspart [NovoLOG] 2 - 8 unit SQ TID 11/18/20 [History] Loperamide [Imodium] 4 mg PO DAILY PRN 11/18/20 [History] Multivitamin [Multi-Day Vitamins] 1 each PO DAILY 11/18/20 [History] Nystatin 1 applic TP Q12H 11/18/20 [History] Octreotide Acetate 200 mcg SUBCUT Q8H 11/18/20 [History] Ondansetron [Zofran] 8 mg PO ASDIRECTED 11/18/20 [History] Phytonadione [Vitamin K] 200 mcg PO ASDIRECTED 11/18/20 [History] Potassium Chloride 8 meq PO TIDMEALS 11/18/20 [History] Potassium Chloride 20 meq PO BID 11/18/20 [History] Propylene Glycol/Peg 400 [Systane 0.3-0.4% Eye Drops] 1 drop EYEBOTH Q4HR PRN 11/18/20 [History] Sennosides/Docusate Sodium [Senna-S 8.6-50 mg Tablet] 1 each PO BID PRN 11/18/20 [History] Sodium Chloride 0.9% [Saline Flush] 20 ml FLUSH ASDIRECTED 11/18/20 [History] Triamcinolone Acetonide [Triamcinolone Acetonide 0.1% Crm] 1 applic TOP BID 11/18/20 [History] Warfarin [Coumadin] 2.5 mg PO ASDIRECTED 11/18/20 [History] Warfarin [Coumadin] 5 mg PO ASDIRECTED 11/18/20 [History] glipiZIDE [Glipizide ER] 5 mg PO DAILY 11/18/20 [History] traZODone 50 mg PO BEDTIME PRN 11/18/20 [History] Oxygen Therapy Mode: Room Air Forms: Interfacility Transfer EMTALA - Discharge Summary/Plan Comment DC Time >30 min.: Yes (Coordination of care) Discharge Summary/Plan Comment: As above. Extensive precautions were given to the patient and her family, who is in agreement with the treatment plan. Her granddaughter, Sara, and daughter Vanessa are here in the hospital with the patient. Ambulance transfer to [facility] in [place] as above. - General Info Date of Service: 11/22/20 Admission Dx/Problem (Free Text: Admission Diagnosis/Problem Admission Diagnosis/Problem Osteomyelitis, Type 2 diabetes, HTN, Diarrhea, Skin candidiasis, Lung CA, Pacreatic CA, Hx of DVT, SVC thrombosis, IVC thrombosis, factor V Leiden mutation. Functional Status: Reports: Pain Controlled, Tolerating Diet, Ambulating (Previously with assist), Urinating (Although Mclean catheter placed prior to transfer for more accurate I's and O's), New Symptoms (Hallucination and confusion as above), Incentive Spirometry (Previously) Numeric/FACES Score: 0 - Review of Systems General: Reports: Weakness (Generalized). Denies: Fever, Chills, Appetite (Previously good) HEENT: Reports: Glasses. Denies: No Symptoms, Contact Lenses, Dysphasia, Ear Pain, Eye Pain, Headaches, Post Nasal Drip, Sinus Congestion, Sore Throat, Rhinitis, Visual Changes Pulmonary: Reports: No Symptoms. Denies: Shortness of Breath, Pleuritic Chest Pain, Cough, Sputum, Hemoptysis, Wheezing Cardiovascular: Reports: No Symptoms. Denies: Chest Pain, Palpitations, Dyspnea on Exertion, Orthopnea, Edema, Lightheadedness Gastrointestinal: Reports: No Symptoms, Other (Mild loose stools this morning). Denies: Abdominal Pain, Constipation, Decreased Appetite, Diarrhea, Difficulty Swallowing, Flatus, Hematochezia, Melena, Nausea, Vomiting Genitourinary: Reports: Incontinence. Denies: Dysuria, Frequency, Burning, Pain, Urgency, Hematuria, Retention, Flank Pain Musculoskeletal: Reports: Hand Pain (Right hand secondary to previous osteomyelitis). Denies: Neck Pain, Shoulder Pain, Arm Pain, Back Pain, Leg Pain, Foot Pain, Joint Pain, Joint Swelling Skin: Reports: No Symptoms. Denies: Diaphoresis, Pruritis, Rash Neurological: Reports: Confusion, Dizziness, Trouble Speaking, Difficulty Walking, Weakness, Other (Above symptoms not present earlier this morning however progressing during the course of the afternoon). Denies: Headache, Paresthesia Psychiatric: Reports: Confusion (As above), Hallucinations (As above). Denies: Agitation - Patient Data Vitals - Most Recent: Last Vital Signs Temp 36.4 C 11/22/20 16:33 Pulse 88 11/22/20 16:33 Resp 18 11/22/20 08:00 BP 87/42 L 11/22/20 16:33 Pulse Ox 98 11/22/20 16:33 Vital Signs - 24 hr 11/21/20 11/22/20 11/22/20 20:00 08:00 16:00 Temperature [ 36.8 C 36.8 C 36.6 C Temporal] Pulse, 77 95 90 Peripheral [ Pulse Oximetry] Respiratory 18 18 19 Rate Blood Pressure 106/50 L 116/62 86/38 L [Left Upper Arm ] O2 Sat by Pulse 99 96 98 Oximetry O2 Sat by Pulse Oximetry [Room Air] 11/22/20 11/22/20 11/22/20 16:05 16:20 16:26 Temperature [ Temporal] Pulse, 92 70 Peripheral [ Pulse Oximetry] Respiratory 20 20 Rate Blood Pressure 87/42 L 93/56 L [Left Upper Arm ] O2 Sat by Pulse 98 100 98 Oximetry O2 Sat by Pulse 100 Oximetry [Room Air] 11/22/20 11/22/20 11/22/20 16:33 17:03 17:18 Temperature [ 36.4 C Temporal] Pulse, 88 72 82 Peripheral [ Pulse Oximetry] Respiratory 19 19 Rate Blood Pressure 87/42 L 122/108 H 92/80 [Left Upper Arm ] O2 Sat by Pulse 98 99 99 Oximetry O2 Sat by Pulse Oximetry [Room Air] 11/22/20 11/22/20 11/22/20 17:43 17:48 17:55 Temperature [ 36.4 C Temporal] Pulse, 77 79 79 Peripheral [ Pulse Oximetry] Respiratory 20 19 22 H Rate Blood Pressure 100/41 L 94/38 L 106/62 [Left Upper Arm ] O2 Sat by Pulse 99 99 99 Oximetry O2 Sat by Pulse Oximetry [Room Air] 11/22/20 11/22/20 11/22/20 18:03 18:20 18:35 Temperature [ 36.8 C Temporal] Pulse, 79 83 84 Peripheral [ Pulse Oximetry] Respiratory 19 19 18 Rate Blood Pressure 101/37 L 95/61 108/47 L [Left Upper Arm ] O2 Sat by Pulse 98 98 98 Oximetry O2 Sat by Pulse Oximetry [Room Air] Weight - Most Recent: 57.153 kg I&O - Last 24 hours: Intake & Output 11/22/20 11/22/20 11/22/20 06:59 14:59 22:59 Intake Total 0 220 Balance 0 220 Imaging Impressions - Last 24 hrs: surveillance monitor shows normal sinus rhythm with very occasional PVCs with average heart rate in the 70s Chest x-ray, portable, on 11/22/2020 shows a mild to moderate left pleural effusion with somewhat poor inspiratory film. Moderate COPD changes with moderate CHF. No pneumothorax. Central line noted with catheter in proper position. Secondary to CHF cannot rule out possible bilateral lower quadrant pulmonary infiltrates. Mild scoliosis with moderate osteoarthritis and osteoporosis in the thoracic spine. Additional hyperdensities times two 1 cm in diameter on the right lower lobe consistent with probable metastases versus lung cancer. Stat CT scan of the head without contrast was ordered on 11/22/2020 with preliminary verbal report received from the radiology department at [facility] via telephone consultation at 2:35 PM. Nonspecific findings, including possible left basilar ganglia old lacunar infarct and small left-sided attenuation in the parietal lobe consistent with possible small subarachnoid bleed versus questionable beginning metastasis subacute versus acute in nature. Close follow-up recommended by the radiologist. Lab Results - Last 24 hrs: Laboratory Results - last 24 hr 11/21/20 11/21/20 11/22/20 Range/Units 17:15 20:20 07:11 WBC (4.0-10.2) K/uL RBC (3.77-5.09) M/uL Hgb (11.7-15.5) g/dL Hct (34.0-46.0) % MCV (84.0-98.0) fL MCH (28.2-33.3) pg MCHC (31.7-36.0) g/dL RDW (11.2-14.1) % Plt Count (150-350) K/uL Neut % (Auto) (45.0-80.0) % Lymph % (Auto) (10.0-50.0) % Throckmorton % (Auto) (2.0-14.0) % Eos % (Auto) (0.0-5.0) % Baso % (Auto) (0.0-2.0) % Neut # (Auto) (1.40-7.00) K/uL Lymph # (Auto) (0.50-3.50) K/uL Throckmorton # (Auto) (0.00-1.00) K/uL Eos # (Auto) (0.00-0.50) K/uL Baso # (Auto) (0.00-0.20) K/uL ESR (0-30) mm/hr Creatinine (0.51-1.17) mg/dL Est Cr Clr Drug Dosing Estimated GFR (MDRD) mL/min POC Glucose 281 H* 144 H 138 H (65-110) mg/dl ALT (12-78) U/L Creatine Kinase (26-308) U/L C-Reactive Protein (<=0.9) mg/dL 11/22/20 11/22/20 11/22/20 Range/Units 07:30 07:30 12:25 WBC 1.9 L* (4.0-10.2) K/uL RBC 2.92 L (3.77-5.09) M/uL Hgb 9.0 L (11.7-15.5) g/dL Hct 28.4 L (34.0-46.0) % MCV 97.3 (84.0-98.0) fL MCH 30.8 (28.2-33.3) pg MCHC 31.7 (31.7-36.0) g/dL RDW 22.4 H (11.2-14.1) % Plt Count 65 L (150-350) K/uL Neut % (Auto) 63.0 (45.0-80.0) % Lymph % (Auto) 16.1 (10.0-50.0) % Throckmorton % (Auto) 18.8 H (2.0-14.0) % Eos % (Auto) 1.6 (0.0-5.0) % Baso % (Auto) 0.5 (0.0-2.0) % Neut # (Auto) 1.21 L (1.40-7.00) K/uL Lymph # (Auto) 0.31 L (0.50-3.50) K/uL Throckmorton # (Auto) 0.36 (0.00-1.00) K/uL Eos # (Auto) 0.03 (0.00-0.50) K/uL Baso # (Auto) 0.01 (0.00-0.20) K/uL ESR 64 H (0-30) mm/hr Creatinine 0.71 (0.51-1.17) mg/dL Est Cr Clr Drug Dosing TNP Estimated GFR (MDRD) > 60 mL/min POC Glucose 170 H (65-110) mg/dl ALT 11 L (12-78) U/L Creatine Kinase 12 L (26-308) U/L C-Reactive Protein 1.6 H (<=0.9) mg/dL Laboratory Tests 11/18/20 11/19/20 11/19/20 Range/Units 22:09 07:19 11:33 WBC (4.0-10.2) K/uL RBC (3.77-5.09) M/uL Hgb (11.7-15.5) g/dL Hct (34.0-46.0) % MCV (84.0-98.0) fL MCH (28.2-33.3) pg MCHC (31.7-36.0) g/dL RDW (11.2-14.1) % Plt Count (150-350) K/uL Neut % (Auto) (45.0-80.0) % Lymph % (Auto) (10.0-50.0) % Throckmorton % (Auto) (2.0-14.0) % Eos % (Auto) (0.0-5.0) % Baso % (Auto) (0.0-2.0) % Neut # (Auto) (1.40-7.00) K/uL Lymph # (Auto) (0.50-3.50) K/uL Throckmorton # (Auto) (0.00-1.00) K/uL Eos # (Auto) (0.00-0.50) K/uL Baso # (Auto) (0.00-0.20) K/uL ESR (0-30) mm/hr PT (9.5-12.0) SEC INR APTT (24.5-32.8) SEC D-Dimer, Quantitative (0-400) ng/mL Sodium (136-145) mmol/L Potassium (3.5-5.1) mmol/L Chloride (98-107) mmol/L Carbon Dioxide (21.0-32.0) mmol/L BUN (7-18) mg/dL Creatinine (0.51-1.17) mg/dL Est Cr Clr Drug Dosing Estimated GFR (MDRD) mL/min Glucose (70-99) mg/dL POC Glucose 212 H 140 H 163 H (65-110) mg/dl Lactic Acid (0.4-2.0) mmol/L Uric Acid (2.6-7.2) mg/dL Calcium (8.5-10.1) mg/dL Magnesium (1.8-2.4) mg/dL Total Bilirubin (0.2-1.0) mg/dL AST (15-37) U/L ALT (12-78) U/L Alkaline Phosphatase (46-116) IU/L Creatine Kinase (26-308) U/L Creatine Kinase Index (0.0-2.5) % CK-MB (CK-2) (0.00-3.60) ng/mL Troponin I (0.000-0.056) ng/mL C-Reactive Protein (<=0.9) mg/dL NT-Pro-B Natriuret Pep (0-125) pg/mL Total Protein (6.4-8.2) g/dL Albumin (3.4-5.0) g/dL TSH, Ultra Sensitive (0.358-3.740) mIU/mL Specimen Type Urine Color Urine Appearance Urine pH (5.0-9.0) Ur Specific Benedict (1.005-1.030) Urine Protein (NEGATIVE) mg/dL Urine Glucose (UA) (NEGATIVE) mg/dL Urine Ketones (NEGATIVE) mg/dL Urine Occult Blood (NEGATIVE) Urine Nitrite (NEGATIVE) Urine Bilirubin (NEGATIVE) Urine Urobilinogen (0.2-1.0) E.U./dL Ur Leukocyte Esterase (NEGATIVE) U Hyaline Cast (Auto) Urine RBC /HPF Urine WBC /HPF Ur Epithelial Cells /LPF Amorphous Sediment (0/HPF) /HPF Urine Bacteria (NONE TO FEW) /HPF Granular Casts (Auto) 11/19/20 11/19/20 11/20/20 Range/Units 17:21 23:00 07:37 WBC (4.0-10.2) K/uL RBC (3.77-5.09) M/uL Hgb (11.7-15.5) g/dL Hct (34.0-46.0) % MCV (84.0-98.0) fL MCH (28.2-33.3) pg MCHC (31.7-36.0) g/dL RDW (11.2-14.1) % Plt Count (150-350) K/uL Neut % (Auto) (45.0-80.0) % Lymph % (Auto) (10.0-50.0) % Throckmorton % (Auto) (2.0-14.0) % Eos % (Auto) (0.0-5.0) % Baso % (Auto) (0.0-2.0) % Neut # (Auto) (1.40-7.00) K/uL Lymph # (Auto) (0.50-3.50) K/uL Throckmorton # (Auto) (0.00-1.00) K/uL Eos # (Auto) (0.00-0.50) K/uL Baso # (Auto) (0.00-0.20) K/uL ESR (0-30) mm/hr PT (9.5-12.0) SEC INR APTT (24.5-32.8) SEC D-Dimer, Quantitative (0-400) ng/mL Sodium (136-145) mmol/L Potassium (3.5-5.1) mmol/L Chloride (98-107) mmol/L Carbon Dioxide (21.0-32.0) mmol/L BUN (7-18) mg/dL Creatinine (0.51-1.17) mg/dL Est Cr Clr Drug Dosing Estimated GFR (MDRD) mL/min Glucose (70-99) mg/dL POC Glucose 126 H 111 H 97 (65-110) mg/dl Lactic Acid (0.4-2.0) mmol/L Uric Acid (2.6-7.2) mg/dL Calcium (8.5-10.1) mg/dL Magnesium (1.8-2.4) mg/dL Total Bilirubin (0.2-1.0) mg/dL AST (15-37) U/L ALT (12-78) U/L Alkaline Phosphatase (46-116) IU/L Creatine Kinase (26-308) U/L Creatine Kinase Index (0.0-2.5) % CK-MB (CK-2) (0.00-3.60) ng/mL Troponin I (0.000-0.056) ng/mL C-Reactive Protein (<=0.9) mg/dL NT-Pro-B Natriuret Pep (0-125) pg/mL Total Protein (6.4-8.2) g/dL Albumin (3.4-5.0) g/dL TSH, Ultra Sensitive (0.358-3.740) mIU/mL Specimen Type Urine Color Urine Appearance Urine pH (5.0-9.0) Ur Specific Benedict (1.005-1.030) Urine Protein (NEGATIVE) mg/dL Urine Glucose (UA) (NEGATIVE) mg/dL Urine Ketones (NEGATIVE) mg/dL Urine Occult Blood (NEGATIVE) Urine Nitrite (NEGATIVE) Urine Bilirubin (NEGATIVE) Urine Urobilinogen (0.2-1.0) E.U./dL Ur Leukocyte Esterase (NEGATIVE) U Hyaline Cast (Auto) Urine RBC /HPF Urine WBC /HPF Ur Epithelial Cells /LPF Amorphous Sediment (0/HPF) /HPF Urine Bacteria (NONE TO FEW) /HPF Granular Casts (Auto) 11/20/20 11/20/20 11/20/20 Range/Units 11:26 16:53 22:56 WBC (4.0-10.2) K/uL RBC (3.77-5.09) M/uL Hgb (11.7-15.5) g/dL Hct (34.0-46.0) % MCV (84.0-98.0) fL MCH (28.2-33.3) pg MCHC (31.7-36.0) g/dL RDW (11.2-14.1) % Plt Count (150-350) K/uL Neut % (Auto) (45.0-80.0) % Lymph % (Auto) (10.0-50.0) % [place] % (Auto) (2.0-14.0) % Eos % (Auto) (0.0-5.0) % Baso % (Auto) (0.0-2.0) % Neut # (Auto) (1.40-7.00) K/uL Lymph # (Auto) (0.50-3.50) K/uL [place] # (Auto) (0.00-1.00) K/uL Eos # (Auto) (0.00-0.50) K/uL Baso # (Auto) (0.00-0.20) K/uL ESR (0-30) mm/hr PT (9.5-12.0) SEC INR APTT (24.5-32.8) SEC D-Dimer, Quantitative (0-400) ng/mL Sodium (136-145) mmol/L Potassium (3.5-5.1) mmol/L Chloride (98-107) mmol/L Carbon Dioxide (21.0-32.0) mmol/L BUN (7-18) mg/dL Creatinine (0.51-1.17) mg/dL Est Cr Clr Drug Dosing Estimated GFR (MDRD) mL/min Glucose (70-99) mg/dL POC Glucose 84 108 162 H (65-110) mg/dl Lactic Acid (0.4-2.0) mmol/L Uric Acid (2.6-7.2) mg/dL Calcium (8.5-10.1) mg/dL Magnesium (1.8-2.4) mg/dL Total Bilirubin (0.2-1.0) mg/dL AST (15-37) U/L ALT (12-78) U/L Alkaline Phosphatase (46-116) IU/L Creatine Kinase (26-308) U/L Creatine Kinase Index (0.0-2.5) % CK-MB (CK-2) (0.00-3.60) ng/mL Troponin I (0.000-0.056) ng/mL C-Reactive Protein (<=0.9) mg/dL NT-Pro-B Natriuret Pep (0-125) pg/mL Total Protein (6.4-8.2) g/dL Albumin (3.4-5.0) g/dL TSH, Ultra Sensitive (0.358-3.740) mIU/mL Specimen Type Urine Color Urine Appearance Urine pH (5.0-9.0) Ur Specific Benedict (1.005-1.030) Urine Protein (NEGATIVE) mg/dL Urine Glucose (UA) (NEGATIVE) mg/dL Urine Ketones (NEGATIVE) mg/dL Urine Occult Blood (NEGATIVE) Urine Nitrite (NEGATIVE) Urine Bilirubin (NEGATIVE) Urine Urobilinogen (0.2-1.0) E.U./dL Ur Leukocyte Esterase (NEGATIVE) U Hyaline Cast (Auto) Urine RBC /HPF Urine WBC /HPF Ur Epithelial Cells /LPF Amorphous Sediment (0/HPF) /HPF Urine Bacteria (NONE TO FEW) /HPF Granular Casts (Auto) 11/21/20 11/21/20 11/21/20 Range/Units 09:00 09:00 09:00 WBC 2.1 L (4.0-10.2) K/uL RBC 3.04 L (3.77-5.09) M/uL Hgb 9.4 L D (11.7-15.5) g/dL Hct 29.2 L (34.0-46.0) % MCV 96.1 D (84.0-98.0) fL MCH 30.9 (28.2-33.3) pg MCHC 32.2 (31.7-36.0) g/dL RDW 22.4 H (11.2-14.1) % Plt Count 66 L D (150-350) K/uL Neut % (Auto) 66.1 (45.0-80.0) % Lymph % (Auto) 12.1 (10.0-50.0) % [place] % (Auto) 18.9 H (2.0-14.0) % Eos % (Auto) 1.9 (0.0-5.0) % Baso % (Auto) 1.0 (0.0-2.0) % Neut # (Auto) 1.36 L (1.40-7.00) K/uL Lymph # (Auto) 0.25 L (0.50-3.50) K/uL [place] # (Auto) 0.39 (0.00-1.00) K/uL Eos # (Auto) 0.04 (0.00-0.50) K/uL Baso # (Auto) 0.02 (0.00-0.20) K/uL ESR 73 H (0-30) mm/hr PT 16.0 H (9.5-12.0) SEC INR 1.6 APTT (24.5-32.8) SEC D-Dimer, Quantitative (0-400) ng/mL Sodium 144 (136-145) mmol/L Potassium 3.8 (3.5-5.1) mmol/L Chloride 113 H (98-107) mmol/L Carbon Dioxide 21.0 (21.0-32.0) mmol/L BUN 13 (7-18) mg/dL Creatinine 0.76 (0.51-1.17) mg/dL Est Cr Clr Drug Dosing TNP Estimated GFR (MDRD) > 60 mL/min Glucose 155 H (70-99) mg/dL POC Glucose (65-110) mg/dl Lactic Acid (0.4-2.0) mmol/L Uric Acid (2.6-7.2) mg/dL Calcium 7.8 L (8.5-10.1) mg/dL Magnesium (1.8-2.4) mg/dL Total Bilirubin (0.2-1.0) mg/dL AST (15-37) U/L ALT 11 L (12-78) U/L Alkaline Phosphatase (46-116) IU/L Creatine Kinase 12 L (26-308) U/L Creatine Kinase Index (0.0-2.5) % CK-MB (CK-2) (0.00-3.60) ng/mL Troponin I (0.000-0.056) ng/mL C-Reactive Protein 1.7 H (<=0.9) mg/dL NT-Pro-B Natriuret Pep (0-125) pg/mL Total Protein (6.4-8.2) g/dL Albumin (3.4-5.0) g/dL TSH, Ultra Sensitive (0.358-3.740) mIU/mL Specimen Type Urine Color Urine Appearance Urine pH (5.0-9.0) Ur Specific Benedict (1.005-1.030) Urine Protein (NEGATIVE) mg/dL Urine Glucose (UA) (NEGATIVE) mg/dL Urine Ketones (NEGATIVE) mg/dL Urine Occult Blood (NEGATIVE) Urine Nitrite (NEGATIVE) Urine Bilirubin (NEGATIVE) Urine Urobilinogen (0.2-1.0) E.U./dL Ur Leukocyte Esterase (NEGATIVE) U Hyaline Cast (Auto) Urine RBC /HPF Urine WBC /HPF Ur Epithelial Cells /LPF Amorphous Sediment (0/HPF) /HPF Urine Bacteria (NONE TO FEW) /HPF Granular Casts (Auto) 11/21/20 11/21/20 11/21/20 Range/Units 09:02 17:15 20:20 WBC (4.0-10.2) K/uL RBC (3.77-5.09) M/uL Hgb (11.7-15.5) g/dL Hct (34.0-46.0) % MCV (84.0-98.0) fL MCH (28.2-33.3) pg MCHC (31.7-36.0) g/dL RDW (11.2-14.1) % Plt Count (150-350) K/uL Neut % (Auto) (45.0-80.0) % Lymph % (Auto) (10.0-50.0) % [place] % (Auto) (2.0-14.0) % Eos % (Auto) (0.0-5.0) % Baso % (Auto) (0.0-2.0) % Neut # (Auto) (1.40-7.00) K/uL Lymph # (Auto) (0.50-3.50) K/uL [place] # (Auto) (0.00-1.00) K/uL Eos # (Auto) (0.00-0.50) K/uL Baso # (Auto) (0.00-0.20) K/uL ESR (0-30) mm/hr PT (9.5-12.0) SEC INR APTT (24.5-32.8) SEC D-Dimer, Quantitative (0-400) ng/mL Sodium (136-145) mmol/L Potassium (3.5-5.1) mmol/L Chloride (98-107) mmol/L Carbon Dioxide (21.0-32.0) mmol/L BUN (7-18) mg/dL Creatinine (0.51-1.17) mg/dL Est Cr Clr Drug Dosing Estimated GFR (MDRD) mL/min Glucose (70-99) mg/dL POC Glucose 155 H 281 H* 144 H (65-110) mg/dl Lactic Acid (0.4-2.0) mmol/L Uric Acid (2.6-7.2) mg/dL Calcium (8.5-10.1) mg/dL Magnesium (1.8-2.4) mg/dL Total Bilirubin (0.2-1.0) mg/dL AST (15-37) U/L ALT (12-78) U/L Alkaline Phosphatase (46-116) IU/L Creatine Kinase (26-308) U/L Creatine Kinase Index (0.0-2.5) % CK-MB (CK-2) (0.00-3.60) ng/mL Troponin I (0.000-0.056) ng/mL C-Reactive Protein (<=0.9) mg/dL NT-Pro-B Natriuret Pep (0-125) pg/mL Total Protein (6.4-8.2) g/dL Albumin (3.4-5.0) g/dL TSH, Ultra Sensitive (0.358-3.740) mIU/mL Specimen Type Urine Color Urine Appearance Urine pH (5.0-9.0) Ur Specific Benedict (1.005-1.030) Urine Protein (NEGATIVE) mg/dL Urine Glucose (UA) (NEGATIVE) mg/dL Urine Ketones (NEGATIVE) mg/dL Urine Occult Blood (NEGATIVE) Urine Nitrite (NEGATIVE) Urine Bilirubin (NEGATIVE) Urine Urobilinogen (0.2-1.0) E.U./dL Ur Leukocyte Esterase (NEGATIVE) U Hyaline Cast (Auto) Urine RBC /HPF Urine WBC /HPF Ur Epithelial Cells /LPF Amorphous Sediment (0/HPF) /HPF Urine Bacteria (NONE TO FEW) /HPF Granular Casts (Auto) 11/22/20 11/22/20 11/22/20 Range/Units 07:11 07:30 07:30 WBC 1.9 L* (4.0-10.2) K/uL RBC 2.92 L (3.77-5.09) M/uL Hgb 9.0 L (11.7-15.5) g/dL Hct 28.4 L (34.0-46.0) % MCV 97.3 (84.0-98.0) fL MCH 30.8 (28.2-33.3) pg MCHC 31.7 (31.7-36.0) g/dL RDW 22.4 H (11.2-14.1) % Plt Count 65 L (150-350) K/uL Neut % (Auto) 63.0 (45.0-80.0) % Lymph % (Auto) 16.1 (10.0-50.0) % [place] % (Auto) 18.8 H (2.0-14.0) % Eos % (Auto) 1.6 (0.0-5.0) % Baso % (Auto) 0.5 (0.0-2.0) % Neut # (Auto) 1.21 L (1.40-7.00) K/uL Lymph # (Auto) 0.31 L (0.50-3.50) K/uL [place] # (Auto) 0.36 (0.00-1.00) K/uL Eos # (Auto) 0.03 (0.00-0.50) K/uL Baso # (Auto) 0.01 (0.00-0.20) K/uL ESR 64 H (0-30) mm/hr PT (9.5-12.0) SEC INR APTT (24.5-32.8) SEC D-Dimer, Quantitative (0-400) ng/mL Sodium (136-145) mmol/L Potassium (3.5-5.1) mmol/L Chloride (98-107) mmol/L Carbon Dioxide (21.0-32.0) mmol/L BUN (7-18) mg/dL Creatinine 0.71 (0.51-1.17) mg/dL Est Cr Clr Drug Dosing TNP Estimated GFR (MDRD) > 60 mL/min Glucose (70-99) mg/dL POC Glucose 138 H (65-110) mg/dl Lactic Acid (0.4-2.0) mmol/L Uric Acid (2.6-7.2) mg/dL Calcium (8.5-10.1) mg/dL Magnesium (1.8-2.4) mg/dL Total Bilirubin (0.2-1.0) mg/dL AST (15-37) U/L ALT 11 L (12-78) U/L Alkaline Phosphatase (46-116) IU/L Creatine Kinase 12 L (26-308) U/L Creatine Kinase Index (0.0-2.5) % CK-MB (CK-2) (0.00-3.60) ng/mL Troponin I (0.000-0.056) ng/mL C-Reactive Protein 1.6 H (<=0.9) mg/dL NT-Pro-B Natriuret Pep (0-125) pg/mL Total Protein (6.4-8.2) g/dL Albumin (3.4-5.0) g/dL TSH, Ultra Sensitive (0.358-3.740) mIU/mL Specimen Type Urine Color Urine Appearance Urine pH (5.0-9.0) Ur Specific Benedict (1.005-1.030) Urine Protein (NEGATIVE) mg/dL Urine Glucose (UA) (NEGATIVE) mg/dL Urine Ketones (NEGATIVE) mg/dL Urine Occult Blood (NEGATIVE) Urine Nitrite (NEGATIVE) Urine Bilirubin (NEGATIVE) Urine Urobilinogen (0.2-1.0) E.U./dL Ur Leukocyte Esterase (NEGATIVE) U Hyaline Cast (Auto) Urine RBC /HPF Urine WBC /HPF Ur Epithelial Cells /LPF Amorphous Sediment (0/HPF) /HPF Urine Bacteria (NONE TO FEW) /HPF Granular Casts (Auto) 11/22/20 11/22/20 11/22/20 Range/Units 12:25 16:40 16:40 WBC 1.6 L* (4.0-10.2) K/uL RBC 2.84 L (3.77-5.09) M/uL Hgb 8.7 L (11.7-15.5) g/dL Hct 27.7 L (34.0-46.0) % MCV 97.5 (84.0-98.0) fL MCH 30.6 (28.2-33.3) pg MCHC 31.4 L (31.7-36.0) g/dL RDW 22.4 H (11.2-14.1) % Plt Count 62 L (150-350) K/uL Neut % (Auto) 60.9 (45.0-80.0) % Lymph % (Auto) 19.9 (10.0-50.0) % [place] % (Auto) 18.0 H (2.0-14.0) % Eos % (Auto) 0.6 (0.0-5.0) % Baso % (Auto) 0.6 (0.0-2.0) % Neut # (Auto) 0.98 L (1.40-7.00) K/uL Lymph # (Auto) 0.32 L (0.50-3.50) K/uL [place] # (Auto) 0.29 (0.00-1.00) K/uL Eos # (Auto) 0.01 (0.00-0.50) K/uL Baso # (Auto) 0.01 (0.00-0.20) K/uL ESR (0-30) mm/hr PT (9.5-12.0) SEC INR APTT 31.1 (24.5-32.8) SEC D-Dimer, Quantitative (0-400) ng/mL Sodium (136-145) mmol/L Potassium (3.5-5.1) mmol/L Chloride (98-107) mmol/L Carbon Dioxide (21.0-32.0) mmol/L BUN (7-18) mg/dL Creatinine (0.51-1.17) mg/dL Est Cr Clr Drug Dosing Estimated GFR (MDRD) mL/min Glucose (70-99) mg/dL POC Glucose 170 H (65-110) mg/dl Lactic Acid (0.4-2.0) mmol/L Uric Acid (2.6-7.2) mg/dL Calcium (8.5-10.1) mg/dL Magnesium (1.8-2.4) mg/dL Total Bilirubin (0.2-1.0) mg/dL AST (15-37) U/L ALT (12-78) U/L Alkaline Phosphatase (46-116) IU/L Creatine Kinase (26-308) U/L Creatine Kinase Index (0.0-2.5) % CK-MB (CK-2) (0.00-3.60) ng/mL Troponin I (0.000-0.056) ng/mL C-Reactive Protein (<=0.9) mg/dL NT-Pro-B Natriuret Pep (0-125) pg/mL Total Protein (6.4-8.2) g/dL Albumin (3.4-5.0) g/dL TSH, Ultra Sensitive (0.358-3.740) mIU/mL Specimen Type Urine Color Urine Appearance Urine pH (5.0-9.0) Ur Specific Benedict (1.005-1.030) Urine Protein (NEGATIVE) mg/dL Urine Glucose (UA) (NEGATIVE) mg/dL Urine Ketones (NEGATIVE) mg/dL Urine Occult Blood (NEGATIVE) Urine Nitrite (NEGATIVE) Urine Bilirubin (NEGATIVE) Urine Urobilinogen (0.2-1.0) E.U./dL Ur Leukocyte Esterase (NEGATIVE) U Hyaline Cast (Auto) Urine RBC /HPF Urine WBC /HPF Ur Epithelial Cells /LPF Amorphous Sediment (0/HPF) /HPF Urine Bacteria (NONE TO FEW) /HPF Granular Casts (Auto) 11/22/20 11/22/20 11/22/20 Range/Units 16:40 16:40 16:40 WBC (4.0-10.2) K/uL RBC (3.77-5.09) M/uL Hgb (11.7-15.5) g/dL Hct (34.0-46.0) % MCV (84.0-98.0) fL MCH (28.2-33.3) pg MCHC (31.7-36.0) g/dL RDW (11.2-14.1) % Plt Count (150-350) K/uL Neut % (Auto) (45.0-80.0) % Lymph % (Auto) (10.0-50.0) % [place] % (Auto) (2.0-14.0) % Eos % (Auto) (0.0-5.0) % Baso % (Auto) (0.0-2.0) % Neut # (Auto) (1.40-7.00) K/uL Lymph # (Auto) (0.50-3.50) K/uL [place] # (Auto) (0.00-1.00) K/uL Eos # (Auto) (0.00-0.50) K/uL Baso # (Auto) (0.00-0.20) K/uL ESR (0-30) mm/hr PT (9.5-12.0) SEC INR APTT (24.5-32.8) SEC D-Dimer, Quantitative 2680 H (0-400) ng/mL Sodium 146 H (136-145) mmol/L Potassium 3.4 L (3.5-5.1) mmol/L Chloride 116 H* (98-107) mmol/L Carbon Dioxide 20.9 L (21.0-32.0) mmol/L BUN 14 (7-18) mg/dL Creatinine 0.70 (0.51-1.17) mg/dL Est Cr Clr Drug Dosing TNP Estimated GFR (MDRD) > 60 mL/min Glucose 123 H (70-99) mg/dL POC Glucose (65-110) mg/dl Lactic Acid 1.5 (0.4-2.0) mmol/L Uric Acid 4.8 (2.6-7.2) mg/dL Calcium 6.9 L (8.5-10.1) mg/dL Magnesium 1.2 L (1.8-2.4) mg/dL Total Bilirubin 0.8 (0.2-1.0) mg/dL AST 43 H (15-37) U/L ALT 13 (12-78) U/L Alkaline Phosphatase 116 (46-116) IU/L Creatine Kinase 18 L (26-308) U/L Creatine Kinase Index 2.8 H (0.0-2.5) % CK-MB (CK-2) 0.50 (0.00-3.60) ng/mL Troponin I 0.078 H* (0.000-0.056) ng/mL C-Reactive Protein (<=0.9) mg/dL NT-Pro-B Natriuret Pep 1358 H (0-125) pg/mL Total Protein 5.7 L (6.4-8.2) g/dL Albumin 1.4 L (3.4-5.0) g/dL TSH, Ultra Sensitive 0.001 L (0.358-3.740) mIU/mL Specimen Type Urine Color Urine Appearance Urine pH (5.0-9.0) Ur Specific Benedict (1.005-1.030) Urine Protein (NEGATIVE) mg/dL Urine Glucose (UA) (NEGATIVE) mg/dL Urine Ketones (NEGATIVE) mg/dL Urine Occult Blood (NEGATIVE) Urine Nitrite (NEGATIVE) Urine Bilirubin (NEGATIVE) Urine Urobilinogen (0.2-1.0) E.U./dL Ur Leukocyte Esterase (NEGATIVE) U Hyaline Cast (Auto) Urine RBC /HPF Urine WBC /HPF Ur Epithelial Cells /LPF Amorphous Sediment (0/HPF) /HPF Urine Bacteria (NONE TO FEW) /HPF Granular Casts (Auto) 11/22/20 11/22/20 Range/Units 16:40 16:50 WBC (4.0-10.2) K/uL RBC (3.77-5.09) M/uL Hgb (11.7-15.5) g/dL Hct (34.0-46.0) % MCV (84.0-98.0) fL MCH (28.2-33.3) pg MCHC (31.7-36.0) g/dL RDW (11.2-14.1) % Plt Count (150-350) K/uL Neut % (Auto) (45.0-80.0) % Lymph % (Auto) (10.0-50.0) % [place] % (Auto) (2.0-14.0) % Eos % (Auto) (0.0-5.0) % Baso % (Auto) (0.0-2.0) % Neut # (Auto) (1.40-7.00) K/uL Lymph # (Auto) (0.50-3.50) K/uL [place] # (Auto) (0.00-1.00) K/uL Eos # (Auto) (0.00-0.50) K/uL Baso # (Auto) (0.00-0.20) K/uL ESR (0-30) mm/hr PT 16.8 H (9.5-12.0) SEC INR 1.7 APTT (24.5-32.8) SEC D-Dimer, Quantitative (0-400) ng/mL Sodium (136-145) mmol/L Potassium (3.5-5.1) mmol/L Chloride (98-107) mmol/L Carbon Dioxide (21.0-32.0) mmol/L BUN (7-18) mg/dL Creatinine (0.51-1.17) mg/dL Est Cr Clr Drug Dosing Estimated GFR (MDRD) mL/min Glucose (70-99) mg/dL POC Glucose (65-110) mg/dl Lactic Acid (0.4-2.0) mmol/L Uric Acid (2.6-7.2) mg/dL Calcium (8.5-10.1) mg/dL Magnesium (1.8-2.4) mg/dL Total Bilirubin (0.2-1.0) mg/dL AST (15-37) U/L ALT (12-78) U/L Alkaline Phosphatase (46-116) IU/L Creatine Kinase (26-308) U/L Creatine Kinase Index (0.0-2.5) % CK-MB (CK-2) (0.00-3.60) ng/mL Troponin I (0.000-0.056) ng/mL C-Reactive Protein (<=0.9) mg/dL NT-Pro-B Natriuret Pep (0-125) pg/mL Total Protein (6.4-8.2) g/dL Albumin (3.4-5.0) g/dL TSH, Ultra Sensitive (0.358-3.740) mIU/mL Specimen Type Urincath Urine Color Yellow Urine Appearance Clear Urine pH 6.0 (5.0-9.0) Ur Specific Benedict >= 1.030 (1.005-1.030) Urine Protein 100 H (NEGATIVE) mg/dL Urine Glucose (UA) Negative (NEGATIVE) mg/dL Urine Ketones Negative (NEGATIVE) mg/dL Urine Occult Blood Trace-lysed H (NEGATIVE) Urine Nitrite Negative (NEGATIVE) Urine Bilirubin Small H (NEGATIVE) Urine Urobilinogen 0.2 (0.2-1.0) E.U./dL Ur Leukocyte Esterase Negative (NEGATIVE) U Hyaline Cast (Auto) Many Urine RBC 0-5 /HPF Urine WBC 0-5 /HPF Ur Epithelial Cells Few /LPF Amorphous Sediment Moderate H (0/HPF) /HPF Urine Bacteria Few (NONE TO FEW) /HPF Granular Casts (Auto) Moderate IVON Results - Last 24 hrs: Urine C&S pending Med Orders - Current: Current Medications Acetaminophen (Acetaminophen 500 Mg Tab) 500 mg PO Q4HR PRN PRN Reason: Pain (mild 1-3) Lipase/Protease/Amylase (Amylase/Lipase/Protease 12,000 Unit Cap.Cr) [address] [facility] Last Admin: 11/22/20 12:28 Dose: 1 cap Documented by: Artificial Tears (Polyvinyl Alcohol 1.4% Ophth Soln 15 Ml Bottle) 0 ml EYEBOTH Q4HR PRN PRN Reason: Dry Eyes Bismuth Subsalicylate (Bismuth Subsalicylate 262 Mg/15 Ml Susp 236 Ml Bottle) 30 ml PO TID PRN PRN Reason: Indigestion Calcium Carbonate/Glycine (Calcium Carbonate 500 Mg Tab.Chew) [address] [facility] Last Admin: 11/22/20 12:29 Dose: Not Given Documented by: Cholecalciferol (Cholecalciferol (Vitamin D3) 25 Mcg Tab) [address] [facility] Last Admin: 11/22/20 09:34 Dose: Not Given Documented by: Dextrose/Water (50% Dextrose In Water 50 Ml Syringe) 50 ml IV ASDIRECTED PRN PRN Reason: Hypoglycemia Diphenoxylate HCl/Atropine (Atropine/Diphenoxylate 0.025-2.5 Mg Tab) 1 tab PO QID PRN PRN Reason: Diarrhea Gabapentin (Gabapentin 300 Mg Cap) [address] [facility] Last Admin: 11/22/20 09:00 Dose: 600 mg Documented by: Glipizide (Glipizide 5 Mg Tab.Er) [address] [facility] Last Admin: 11/22/20 09:00 Dose: 5 mg Documented by: Glucagon (Glucagon,Human Recombinant 1 Mg Vial) 1 mg IM ASDIRECTED PRN PRN Reason: Hypoglycemia Heparin Sodium (Porcine) (Heparin Sodium 100 Units/Ml 5 Ml Syringe) [address] [facility] Last Admin: 11/22/20 09:47 Dose: 300 units Documented by: Heparin Sodium (Porcine) (Heparin Sodium 100 Units/Ml 5 Ml Syringe) [address] [facility] Last Admin: 11/22/20 09:35 Dose: Not Given Documented by: Heparin Sodium (Porcine) (Heparin Sodium 100 Units/Ml 5 Ml Syringe) 300 units FLUSH ASDIRECTED PRN PRN Reason: PER FACILITY PROTOCOL Last Admin: 11/22/20 07:26 Dose: 300 units Documented by: Daptomycin 350 mg/ Sodium (Chloride) 100 mls @ 200 mls/hr IV Q24H [facility] Stop: 12/05/20 08:30 Last Admin: 11/22/20 08:59 Dose: 200 mls/hr Documented by: Ertapenem 1 gm/ Sodium (Chloride) 100 mls @ 200 mls/hr IV Q24H [facility] Stop: 12/05/20 09:00 Last Admin: 11/22/20 09:12 Dose: 200 mls/hr Documented by: Lactated Ringer's (Ringers, Lactated) 1,000 mls @ 999 mls/hr IV .BOLUS ONE Stop: 11/22/20 17:26 Last Admin: 11/22/20 16:33 Dose: 999 mls/hr Documented by: Insulin Human Lispro (Insulin Lispro 100 Units/Ml 3 Ml Vial) [address] [facility]; Protocol Last Admin: 11/22/20 12:28 Dose: 1 unit Documented by: Loperamide HCl (Loperamide 2 Mg Tab) 4 mg PO QID PRN PRN Reason: DIARRHEA Last Admin: 11/19/20 08:11 Dose: 4 mg Documented by: Multivitamins/Minerals/Vitamin C (Multivitamin Tab) [address] [facility] Last Admin: 11/22/20 09:33 Dose: Not Given Documented by: Nystatin (Nystatin Topical Powder 15 Gm Bottle) 0 gm TOP QID PRN PRN Reason: skin irritation/yeast Octreotide Acetate (Octreotide 100 Mcg/Ml Sdv) [address] [facility] Last Admin: 11/22/20 09:00 Dose: 200 mcg Documented by: Ondansetron HCl (Ondansetron 4 Mg Tab.Dis) 8 mg PO ASDIRECTED PRN PRN Reason: PRIOR TO RADIOTHERAPY Phytonadione (Phytonadione 100 Mcg Tab) [address] [facility] Last Admin: 11/22/20 09:00 Dose: 200 mcg Documented by: Potassium Chloride (Potassium Chloride 20 Meq Tab.Er) [address] [facility] Last Admin: 11/22/20 09:33 Dose: Not Given Documented by: Senna/Docusate Sodium (Docusate Sodium/Sennosides 50-8.6 Mg Tab) 1 tab PO BID PRN PRN Reason: Constipation Sodium Chloride (Sodium Chloride 0.9% 10 Ml Syringe) [address] [facility] Last Admin: 11/22/20 09:07 Dose: 10 ml Documented by: Sodium Chloride (Sodium Chloride 0.9% 10 Ml Syringe) [address] [facility] Last Admin: 11/22/20 09:06 Dose: 20 ml Documented by: Sodium Chloride (Sodium Chloride 0.9% 10 Ml Syringe) [address] [facility] Last Admin: 11/22/20 09:36 Dose: Not Given Documented by: Sodium Chloride (Sodium Chloride 0.9% 10 Ml Syringe) [address] [facility] Last Admin: 11/22/20 09:46 Dose: 20 ml Documented by: Sodium Chloride (Sodium Chloride 0.9% 10 Ml Syringe) 10 ml FLUSH ASDIRECTED PRN PRN Reason: PER PROTOCOL Last Admin: 11/22/20 16:35 Dose: 10 ml Documented by: Sodium Chloride (Sodium Chloride 0.9% 10 Ml Syringe) 10 ml FLUSH ASDIRECTED PRN PRN Reason: Keep Vein Open Triamcinolone Acetonide (Triamcinolone Acetonide 0.1% Crm 15 Gm Tube) 0 gm TOP BID PRN PRN Reason: Itching Warfarin Sodium (Warfarin 2.5 Mg Tab) 2.5 mg PO DAILY@1800 [facility] Last Admin: 11/21/20 17:36 Dose: 2.5 mg Documented by: Discontinued Medications Alteplase, Recombinant (Alteplase 2 Mg Vial) 2 mg IVPUSH ONETIME ONE Stop: 11/21/20 18:01 Last Admin: 11/21/20 18:30 Dose: 2 mg Documented by: Hydromorphone HCl (Hydromorphone 0.5 Mg/0.5 Ml Syringe) 0.5 mg IVPUSH Q1H PRN PRN Reason: Pain (moderate 4-6) Last Admin: 11/21/20 10:39 Dose: 0.5 mg Documented by: Hydromorphone HCl (Hydromorphone 1 Mg/Ml Syringe) 1 mg IVPUSH Q1H PRN PRN Reason: Severe Pain Nystatin (Nystatin Topical Powder 15 Gm Bottle) [address] [facility] Last Admin: 11/20/20 08:39 Dose: 1 applic Documented by: Octreotide Acetate (Octreotide 100 Mcg/Ml Sdv) [address] [facility] Last Admin: 11/18/20 22:00 Dose: 200 mcg Documented by: Quetiapine Fumarate (Quetiapine 25 Mg Tab) 25 mg PO ONETIME ONE Stop: 03/30/21 13:28 Last Admin: 11/22/20 14:21 Dose: 25 mg Documented by: Trazodone HCl (Trazodone 50 Mg Tab) 50 mg PO BEDTIME PRN PRN Reason: Insomnia Triamcinolone Acetonide (Triamcinolone Acetonide 0.1% Crm 15 Gm Tube) 0 gm TOP BID [facility] Last Admin: 11/20/20 17:10 Dose: Not Given Documented by: - Exam Quality Assessment: Reports: Central Line/PICC, Urine Catheter, DVT Prophylaxis (Coumadin with subtherapeutic INR). Denies: Skin Breakdown General: Reports: Sedated HEENT: Reports: Pupils Equal, Pupils Reactive, EOMI, Mucous Membr. Moist/[place], Other (Fundi normal. No nystagmus. Patient is wearing glasses.). Denies: Scleral Icterus Neck: Reports: Supple, Trachea Midline, No JVD, No Thyromegaly, Carotid Bruit (Mild bilateral carotid bruits), Other (Sutures noted in the right anterior lateral neck region from previous central line placement). Denies: Lymphadenopathy, Thyromegaly Lungs: Reports: Normal Respiratory Effort, Decreased Breath Sounds (Right base), Rales (Moderate diffuse bilateral). Denies: Rhonchi, Rub, Stridor, Wheezing Cardiovascular: Reports: Regular Rate, Regular Rhythm, No Murmurs. Denies: Gallops, Rubs GI/Abdominal Exam: Normal Bowel Sounds, Soft, Non-Tender, No Organomegaly, No Distention, No Abnormal Bruit, No Mass, Pelvis Stable, Other (Obese). No: Guarding (Female) Exam: Deferred Rectal (Female) Exam: Deferred Back Exam: Reports: Other (Mild kyphoscoliosis). Denies: CVA Tenderness (L), CVA Tenderness (R), Decreased Range of Motion, Muscle Spasm, Paraspinal Tenderness, Vertebral Tenderness Extremities: Normal Range of Motion, Non-Tender, No Pedal Edema, Other (Moderate venous stasis dermatitis of the lower extremities. 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 Some increased edema of her hands and forearms bilaterally secondary to previous PICC). No: Nahun's Sign Skin: Reports: Rash (Venous stasis dermatitis as above), Ecchymosis (Occasional secondary to Coumadin with known petechia noted) Wound/Incisions: Reports: Healing Well (As above) Neurological: Reports: Other (Negative Babinski's, moderate sedation with previous hallucination and confusions as above. Patient unable to perform complete neurological exam) Psy/Mental Status: Reports: Hallucinations. Denies: Agitated, Withdrawal Symptoms #1 Interpretation EKG Date: 11/22/20 Time: 16:34 Rhythm: Other (PVC with otherwise normal sinus rhythm) Rate (Beats/Min): 83 [place]: Normal (Left cardiac access) P-Wave: Present QRS: Normal (0.07 seconds) ST-T: Other (T wave inversion in leads I ,?II , aVL, and V2, although suspect improper lead placement with the V2 T wave inversion possibility switched with V 6) QT: Normal MT/PQ Interval: 0.12 seconds with extremely poor R wave progression with no delta waves noted. Extreme poor R wave progression in the anterior leads. Comparison: NA - No Prior EKG (No recent EKG for comparison) EKG Interpretation Comments: 1. Lateral wall cardiac ischemia 2. PVC 3. Short MT interval #2 Interpretation EKG Date: 11/22/20 Time: 17:13 Rhythm: NSR (Resolved PVC) [place]: Normal (Left) P-Wave: Present QRS: Normal (0.07 seconds. Low voltage increased from previous EKG as above) ST-T: Other (T wave inversion in leads I, aVL, and possibly V6 with flat ST in lead V2) MT/PQ Interval: 0.12 seconds representing stable short MT interval with no delta waves. Extreme poor R wave progression in the anterior leads. Comparison: Change From Previous EKG (As above since earlier EKG today) EKG Interpretation Comments: 1. Lateral wall cardiac ischemia 2. Short MT interval
[2020-11-22 17:13] LABS: SODIUM,NA 146 mmol/L (136-145)
[2020-11-22 17:18] LABS: CHLORIDE,CL 116 mmol/L (98-107)
[2020-11-22] MEDS ORDERED: Lactated Ringers 1,000 ML IV SCH (17:30)
[2020-11-22] MEDS ORDERED: Norepinephrine 4 MG in Dextrose 5% in Water 246 ML IV SCH ×2 (18:00)
[2020-11-22 19:34] VITALS: BP 108/47; PULSE 84
--- NOTE | 2020-11-22 19:50 | PCM.SN.2 ---
- Free Text/Narrative Note: Note that Levophed was ordered after brief returned hypotension, however the patient did eventually respond to IV fluids. Levophed was therefore not started. Note prolactin level also drawn with this being a send out lab with results pending at time of patient transfer.
== END 2020-11-22 19:15 | DRG 638 ==
LOC: LL.MS 19:30
PROVIDERS: ADMIT Family Medicine; ATTEND Family Medicine
PROC: 3E033XZ Introduction of Vasopressor into Peripheral Vein, Percutaneous Approach (ICD-10-PCS; principal; 2020-11-22)
DX: E11.69 Type 2 diabetes mellitus with other specified complication (principal); J44.0 Chronic obstructive pulmonary disease with (acute) lower respiratory infection; C25.9 Malignant neoplasm of pancreas, unspecified; C34.90 Malignant neoplasm of unspecified part of unspecified bronchus or lung; M86.141 Other acute osteomyelitis, right hand; K52.9 Noninfective gastroenteritis and colitis, unspecified; I82.409 Acute embolism and thrombosis of unspecified deep veins of unspecified lower extremity; E11.59 Type 2 diabetes mellitus with other circulatory complications; I11.0 Hypertensive heart disease with heart failure; I50.9 Heart failure, unspecified; R79.89 Other specified abnormal findings of blood chemistry; D64.9 Anemia, unspecified; D70.9 Neutropenia, unspecified; E05.90 Thyrotoxicosis, unspecified without thyrotoxic crisis or storm; E87.6 Hypokalemia; E83.42 Hypomagnesemia; Z79.899 Other long term (current) drug therapy; Z79.4 Long term (current) use of insulin; Z79.01 Long term (current) use of anticoagulants; Z88.1 Allergy status to other antibiotic agents; Z91.048 Other nonmedicinal substance allergy status; Z88.2 Allergy status to sulfonamides; Z91.018 Allergy to other foods; H91.90 Unspecified hearing loss, unspecified ear; H54.7 Unspecified visual loss; E78.00 Pure hypercholesterolemia, unspecified; G89.29 Other chronic pain; M54.9 Dorsalgia, unspecified; M54.2 Cervicalgia; M19.90 Unspecified osteoarthritis, unspecified site; E11.42 Type 2 diabetes mellitus with diabetic polyneuropathy; E66.9 Obesity, unspecified; D50.9 Iron deficiency anemia, unspecified; E53.8 Deficiency of other specified B group vitamins; Z98.49 Cataract extraction status, unspecified eye; Z96.641 Presence of right artificial hip joint; I95.9 Hypotension, unspecified; R41.0 Disorientation, unspecified
CPT/HCPCS: 36415; 51702; 70450; 71045; 80048; 80053; 81001; 82550; 82553; 82565; 82962; 83605; 83735; 83880; 84146; 84443; 84460; 84484; 84550; 85025; 85379; 85610; 85652; 85730; 86140; 87086; 93005; 97162-GP; 97165-GO; 97530-GO; 99305; 99316; A9270-GY; J0878; J1170; J1335; J1642; J1815-GY; J2354-GY; J2997; J7120